=== PATIENT | male | born 1940 | race African-American/Black ===

== ENCOUNTER 2016-11-05 21:37 | Emergency (ER) | payer BC, MEDICARE ==
[~2016-11-05] VITALS: Ht 190.5 cm; Wt 88.5 kg
[~2016-11-05 21:37] MED LIST: AMIT25TA PO; ASPI325T4 PO; ASPI81TA2 PO; CARV6.25 PO; CHOL10003 PO; CLOP75TA27 PO; DIGO125T PO; FURO40TA4 PO; GABA-586 PO; HYDR-2678 PO; HYDR-963 PO; LISI-338 PO; OMEP20CA9 PO; OMEP40CA5 PO; PANT40TA5 PO; POLY500P14 MC; POTA20TA82 PO; RIVA15TA PO; SIMV20TA3 PO; TRAZ50TA15 PO
[2016-11-05 21:50] VITALS: BP 124/89
[2016-11-05] MEDS ORDERED: DEXAMETHASONE SOD PHOS 20 MG/5 ML VIAL. IM ONE (23:00)
--- NOTE | 2016-11-05 23:03 | PHYS DOC ---
Past Medical History Past Medical History: CAD, GERD, Hypertension Additional Past Medical Histor: BACK PAIN Past Surgical History: Angioplasty, Pacemaker, Other Additional Past Surgical Histo: hiatal hernia, back surgery Smoking: Cigarettes Alcohol Use: Heavy Drug Use: None Adult General Chief Complaint Chief Complaint: ALLERGIC REACTION HPI HPI Patient is a 76 year old male who presents with rash starting on the left forearm 2 days ago. He reports that the rash is very itchy. He had a similar rash approximately one month ago. He applied an ointment to the rash and it eventually cleared. The rash started on the left forearm again this time, however he has a few other scattered lesions across his body this time. He denies any change in household products or new medications. His PCP is Dr. Marni Olivas. Review of Systems Review of Systems Constitutional: Denies fever or chills. [] HENT: Denies ear pain, nasal congestion or sore throat. Denies angioedema. Respiratory: Denies shortness of breath. [] Integument: Reports itchy rash. Neurologic: Denies headache, focal weakness or sensory changes. [] Current Medications Current Medications Current Medications Medications (Trade) Dose Ordered Sig/Alma Rosa Start Time Stop Time Status Last Admin Dose Admin Dexamethasone Sodium Phosphate (Decadron) 10 mg 1X ONCE 11/05/16 23:00 11/05/16 23:01 DC 11/05/16 22:49 10 MG Allergies Allergies Allergies Coded Allergies Type Severity Reaction Last Updated Verified Iodinated Contrast Media - IV Dye Allergy Severe anaphalaxis, short of air Yes adhesive Allergy Severe PAINFUL SKIN IRRITATION 06/06/15 Yes latex Allergy Intermediate Hives 06/06/15 Yes Physical Exam Physical Exam Constitutional: Well developed, well nourished, no acute distress, non-toxic appearance. [] HENT: Normocephalic, atraumatic, oropharynx moist. [] Eyes: PERRLA, EOMI, conjunctiva normal, no discharge. [] Neck: Normal range of motion, no tenderness, supple, no stridor. [] Skin: Warm, dry. There are a few papular erythematous lesions on the left dorsal forearm with more scattered lesions diffusely across the body. Back: No midline tenderness, no CVA tenderness. [] Extremities: No tenderness, ROM intact, no edema. Distal pulses equal bilaterally. [] Neurologic: Alert and oriented X 3, normal motor function, normal sensory function, no focal deficits noted. [] Psychologic: Affect normal, judgement normal, mood normal. [] Current Patient Data Vital Signs Vital Signs Date Time Temp Pulse Resp B/P Pulse Ox O2 Delivery O2 Flow Rate FiO2 11/05/16 21:50 98.4 99 20 96 Room Air 98.4 EKG EKG [] Radiology/Procedures Radiology/Procedures [] Course & Med Decision Making Course & Med Decision Making Pertinent Labs and Imaging studies reviewed. (See chart for details) [] Dragon Disclaimer Dragon Disclaimer This electronic medical record was generated, in whole or in part, using a voice recognition dictation system. Departure Departure Impression: Primary Impression: Rash Disposition: HOME, SELF-CARE Condition: STABLE Referrals: NO PCP (PCP) Patient Instructions: Rash, [id number] Additional Instructions: You were seen for a rash likely caused by an allergic reaction to an unknown substance. You were given a shot of steroids in the emergency department to help with the rash and itching. You may take Benadryl to help with the itching at home. Please follow up with your doctor if the rash continues. Return to the emergency department if you have any new or concerning symptoms. NATHALIE FONSECA Nov 05, 2016 23:03
== END 2016-11-05 23:07 | disposition home or self-care (01) ==
LOC: ER 21:37
DX: R21 Rash and other nonspecific skin eruption (principal); I10 Essential (primary) hypertension; I25.10 Atherosclerotic heart disease of native coronary artery without angina pectoris; F10.10 Alcohol abuse, uncomplicated; F17.210 Nicotine dependence, cigarettes, uncomplicated; Z91.040 Latex allergy status; Z91.041 Radiographic dye allergy status; Z91.048 Other nonmedicinal substance allergy status; Z95.1 Presence of aortocoronary bypass graft; Z96.89 Presence of other specified functional implants
CPT/HCPCS: 96372; 99283; J1100

== ENCOUNTER 2017-02-14 07:06 | Inpatient (IN) | payer MEDICARE, BC ==
[~2017-02-14] VITALS: Ht 190.5 cm; Wt 86.2 kg
--- NOTE | 2017-02-14 07:13 | ED.ADGEN ---
Past Medical History Past Medical History: CAD, GERD, Hypertension Additional Past Medical Histor: BACK PAIN Past Surgical History: Angioplasty, Pacemaker, Other Additional Past Surgical Histo: hiatal hernia, back surgery Alcohol Use: Heavy Drug Use: None Adult General Chief Complaint Chief Complaint: AICD FIRED OR SHOCKED HPI HPI Patient is a 77 year old man, history of CAD, PE on Xarelto, CHF with low ejection fraction, on 2 L nasal cannula baseline, status post placement of a Medtronic EVERA model number [id number], hypertension, chronic back pain status post multiple surgeries, who presents emergency Department with a complaint of near syncope with firing of his AICD 3:00-3:30 PM yesterday. Patient states that he had been "going around doing stuff her my kids", and was in a stressful situation, signing some papers, would begin to feel lightheaded, and then felt as though just before he was pass out that his AICD fired. Patient states that he did not contact his doctor at that time, he states he does not have any chest pain or shortness of breath before the event, denies any weakness numbness or tingling, any recent travel or surgery, and he missed doses of medication or medication changes, any drugs alcohol or cigarettes. Patient states that he was feeling slightly short of breath after the ACT did fire. He states he presents to the emergency department this morning because he is feeling lightheaded, although he denies any syncope, denies striking his head, any injuries, any recent travel or surgery, any history of DVT or PE, any swelling of the extremities or other complaints. Review of Systems Review of Systems Constitutional: Denies fever or chills. [] Lightheadedness. Eyes: Denies change in visual acuity. [] HENT: Denies nasal congestion or sore throat. [] Respiratory: Denies cough, complaining of shortness of breath Cardiovascular: Denies chest pain or edema. AICD firing yesterday around 3 PM GI: Denies abdominal pain, nausea, vomiting, bloody stools or diarrhea. [] : Denies dysuria. [] Musculoskeletal: Denies back pain or joint pain. [] Integument: Denies rash. [] Neurologic: Denies headache, focal weakness or sensory changes. [] Endocrine: Denies polyuria or polydipsia. [] Lymphatic: Denies swollen glands. [] Psychiatric: Denies depression or anxiety. [] Current Medications Current Medications Current Medications Medications (Trade) Dose Ordered Sig/Alma Rosa Start Time Stop Time Status Last Admin Dose Admin Metoprolol Tartrate (Lopressor) 25 mg 1X ONCE 02/14/17 12:45 02/14/17 12:46 DC 02/14/17 13:26 25 MG Allergies Allergies Allergies Coded Allergies Type Severity Reaction Last Updated Verified Iodinated Contrast Media - IV Dye Allergy Severe anaphalaxis, short of air Yes adhesive Allergy Severe PAINFUL SKIN IRRITATION 06/06/15 Yes latex Allergy Intermediate Hives 06/06/15 Yes Physical Exam Physical Exam Constitutional: Well developed, well nourished, no acute distress, non-toxic appearance. [] Nasal cannula in place. HENT: Normocephalic, atraumatic, bilateral external ears normal, oropharynx moist, no oral exudates, nose normal. [] Eyes: PERRLA, EOMI, conjunctiva normal, no discharge. [] Neck: Normal range of motion, no tenderness, supple, no stridor. [] Cardiovascular:Heart rate irregular rhythm, no murmur, S1, S2, regular rhythm, no rubs or gallops. [] Lungs & Thorax: Bilateral breath sounds clear to auscultation , no wheezing, rhonchi, rales, no chest wall crepitus or tenderness. [] Abdomen: Bowel sounds normal, soft, no tenderness, no rebound rigidity or guarding, patient with well-healed midline ventral incision on his abdomen, no masses, no pulsatile masses. [] Skin: Warm, dry, no erythema, no rash. [] Back: No tenderness, no CVA tenderness. [] Extremities: No tenderness, no cyanosis, no clubbing, ROM intact, no edema. [ Negative Homans sign.] Neurologic: Alert and oriented X 3, normal motor function, normal sensory function, no focal deficits noted. [] Psychologic: Affect normal, judgement normal, mood normal. [] Current Patient Data Vital Signs Vital Signs Date Time Temp Pulse Resp B/P Pulse Ox O2 Delivery O2 Flow Rate FiO2 02/14/17 07:16 98.1 101 21 143/95 Nasal Cannula 2 98.1 Lab Values Laboratory Tests Test 02/14/17 07:40 White Blood Count 8.2x10^3/uL (4.0-11.0) Red Blood Count 4.67x10^6/uL (4.30-5.70) Hemoglobin 15.4g/dL (13.0-17.5) Hematocrit 46.3% (39.0-53.0) Mean Corpuscular Volume 99fL (79-100) Mean Corpuscular Hemoglobin 33pg (25-35) Mean Corpuscular Hemoglobin Concent 33g/dL (31-37) Red Cell Distribution Width 14.0% (11.5-14.5) Platelet Count 235x10^3/uL (140-400) Neutrophils (%) (Auto) 65% (31-73) Lymphocytes (%) (Auto) 23% (24-48) L Monocytes (%) (Auto) 9% (0-9) Eosinophils (%) (Auto) 2% (0-3) Basophils (%) (Auto) 1% (0-3) Neutrophils # (Auto) 5.4x10^3uL (1.8-7.7) Lymphocytes # (Auto) 1.9x10^3/uL (1.0-4.8) Monocytes # (Auto) 0.8x10^3/uL (0.0-1.1) Eosinophils # (Auto) 0.1x10^3/uL (0.0-0.7) Basophils # (Auto) 0.0x10^3/uL (0.0-0.2) Prothrombin Time 20.7SEC (11.7-14.0) H Prothrombin Time INR 1.9 (0.8-1.1) H PTT 28SEC (24-38) Sodium Level 143mmol/L (136-145) Potassium Level 3.6mmol/L (3.5-5.1) Chloride Level 106mmol/L (98-107) Carbon Dioxide Level 29mmol/L (21-32) Anion Gap 8 (6-14) Blood Urea Nitrogen 19mg/dL (8-26) Creatinine 1.0mg/dL (0.7-1.3) Estimated GFR (Cockcroft-Gault) 88.1 Glucose Level 122mg/dL (70-99) H Calcium Level 8.9mg/dL (8.5-10.1) Phosphorus Level 3.7mg/dL (2.6-4.7) Magnesium Level 1.9mg/dL (1.8-2.4) Total Bilirubin 0.5mg/dL (0.2-1.0) Direct Bilirubin 0.2mg/dL (0.0-0.2) Aspartate Amino Transferase (AST) 53U/L (15-37) H Alanine Aminotransferase (ALT) 63U/L (16-63) Alkaline Phosphatase 97U/L (46-116) Troponin I Quantitative 0.172ng/mL (0.000-0.055) JO-Hft-J-Type Natriuretic Peptide 171pg/mL (0-449) Total Protein 6.9g/dL (6.4-8.2) Albumin 3.3g/dL (3.4-5.0) L Digoxin Level 0.6ng/mL (0.9-2.0) L Digoxin Last Dose Date Unknown Digoxin Last Dose Time Unknown Laboratory Tests 02/14/17 07:40 Laboratory Tests 02/14/17 07:40 EKG EKG EC: Irregular rhythm, heart rate 100 bpm, atrial fibrillation, with occasional PVCs noted, left axis deviation, QTC of 431, QRS of 84, patient with moderate baseline artifact noted, no ST elevations or depressions. Abnormal ECG , does not meet STEMI criteria. As interpreted by me. [] Radiology/Procedures Radiology/Procedures [] [facility] [address] [place] [address] IMAGING REPORT Signed PATIENT: GENIA MCKENZIE ACCOUNT: [id number] : 1940 LOCATION: ER AGE: 77 SEX: M EXAM STATUS: REG ER ORD. PHYSICIAN: NATHALIE LYN DO REASON: CP PROCEDURE: PORTABLE CHEST 1V Portable AP view CXR: Comparison: December 28, 2015. Clinical indications: Irregular heartbeat. Pacemaker malfunction. Findings: No acute lung infiltrate or pleural effusion or pulmonary edema or lung mass or pneumothorax is seen. Pacemaker is again noted. The heart size, pulmonary vasculature, mediastinum and both ignacio are unremarkable. Impression: No acute radiographic abnormality is seen. DICTATED and SIGNED BY: AMA NOBLE MD DATE: 02/14/17 0909 CC: NATHALIE LYN DO; NO PCP ~ Course & Med Decision Making Course & Med Decision Making Pertinent Labs and Imaging studies reviewed. (See chart for details) Patient complaining of still feeling lightheaded, denies any chest pain or shortness of breath. Attempted to interrogate the pacemaker at bedside using the Medtronic portable device without success. We did contact the or presented of, Higinio, who did come to the ED, there is Transmitted the information. A significant delay occurred, it took us more than 4 hours to obtain the read out of the patient's pacemaker ACD, at that time it was noted that the patient had runs of a TTE, which resulted in one shock yesterday as stated, and has had multiple episodes of nonsustained V. tach and atrial fibrillation during the timeframe. Patient's laboratory studies not reveal any acutely concerning findings, ECG otherwise unremarkable, patient is in sinus rhythm at this time with history of nerve in atrial fibrillation. It appears the patient's pacemaker ACD is functioning well, however after discussion with Dr. Saleem, of cardiology, plan to admit the patient for improved medical management of his underlying rhythm. Patient's digoxin level is low, after reviewing medications at bedside as patient is now had a feeling her bring his medications to the emergency department, is noted the patient was started on metoprolol 25 mg once daily about a month ago. Patient states he's been taking all medications as directed. To discuss this with Dr. Saleem, he was given a dose of 25 mg metoprolol in the ED, and metoprolol 25 every 6, plan to titrate medications to improve efficacy. He will see the patient in the hospital. Patient is agreeable with the plan for admission to the hospital for cardiac evaluation and monitoring as stated. Findings as above discussed with Dr. Olivas patient primary care provider, patient accepted to his service as a full admission to the cardiac telemetry floor with plan as above, bridge orders entered per discussion. Dragon Disclaimer Dragon Disclaimer This electronic medical record was generated, in whole or in part, using a voice recognition dictation system. Departure Impression: Primary Impression: Arrhythmia Additional Impression: Syncope Disposition: 09 ADMITTED INPATIENT Admitting Physician: Marni Olivas Condition: IMPROVED Problem Qualifiers NATHALIE LYN DO Feb 14, 2017 07:13
[2017-02-14 07:59] LABS: EOS % 2 % (0-3); HEMATOCRIT 46.3 % (39.0-53.0); HEMOGLOBIN 15.4 g/dL (13.0-17.5); LYMPH % 23 % (24-48); MEAN CORPUSCULAR HEMOGLOBIN 33 pg (25-35); MEAN CORPUSCULAR HGB CONC 33 g/dL (31-37); MEAN CORPUSCULAR VOLUME 99 fL (79-100); MONO % 9 % (0-9); NEUT % 65 % (31-73); PLATELET COUNT 235 x10^3/uL (140-400); RED BLOOD COUNT 4.67 x10^6/uL (4.30-5.70); WHITE BLOOD COUNT 8.2 x10^3/uL (4.0-11.0)
[2017-02-14 08:00] LABS: BASO % 1 % (0-3); LYMPH # 1.9 x10^3/uL (1.0-4.8)
[2017-02-14 08:06] LABS: PROTHROMBIN TIME PATIENT 20.7 SEC (11.7-14.0)
[2017-02-14 08:07] LABS: INR 1.9 (0.8-1.1)
--- NOTE | 2017-02-14 08:13 | RAD ---
Portable AP view CXR: Comparison: December 28, 2015. Clinical indications: Irregular heartbeat. Pacemaker malfunction. Findings: No acute lung infiltrate or pleural effusion or pulmonary edema or lung mass or pneumothorax is seen. Pacemaker is again noted. The heart size, pulmonary vasculature, mediastinum and both ignacio are unremarkable. Impression: No acute radiographic abnormality is seen.
[2017-02-14 08:14] LABS: CALCIUM 8.9 mg/dL (8.5-10.1); GFR 88.1; POTASSIUM 3.6 mmol/L (3.5-5.1)
[2017-02-14 08:21] LABS: ALBUMIN 3.3 g/dL (3.4-5.0); DIRECT BILIRUBIN 0.2 mg/dL (0.0-0.2); MAGNESIUM 1.9 mg/dL (1.8-2.4); PHOSPHORUS 3.7 mg/dL (2.6-4.7); TOTAL BILIRUBIN 0.5 mg/dL (0.2-1.0); TOTAL PROTEIN 6.9 g/dL (6.4-8.2)
--- NOTE | 2017-02-14 08:34 | EKG ---
[facility] [address] [place] [address] Test Date: 2017-02-14 Test Time: 07:16:57 Pat Name: GENIA MCKENZIE Department: Room: Gender: Reimbursement Spec: : 1940 Requested By: NATHALIE LYN Order Number: [id number] Reading MD: Felix Saleem Measurements Intervals [place] Rate: 100 P: CT: QRS: -4 QRSD: 84 T: 42 QT: 332 QTc: 431 Interpretive Statements SUSPECT SINUS RHYTHM PAC'S PVC'S Electronically Signed On 02-18-2017 9:47:54 CDT by Felix Saleem
[2017-02-14] MEDS ORDERED: METOPROLOL TART IMMED RELEASE 25 MG TABLET. PO ONE (12:45)
[2017-02-14] MEDS ORDERED: NITROGLYCERIN SUBLINGUAL 0.4 MG BOTTLE OF 25. SL PRN (13:45)
[2017-02-14] MEDS ORDERED: ONDANSETRON PF 4 MG/2 ML VIAL. IV PRN (13:45)
[2017-02-14] MEDS ORDERED: ACETAMINOPHEN 325 MG TABLET. PO PRN (13:45)
[2017-02-14 13:48] LABS: BILIRUBIN,URINE NEGATIVE (NEG); GLUCOSE,URINE NEGATIVE (NEG); NITRITE,URINE NEGATIVE (NEG); PH,URINE 6.5; PROTEIN,URINE NEGATIVE (NEG-TRACE)
[2017-02-14 13:51] LABS: BARBITURATES NEG (NEG); BENZODIAZEPINES NEG (NEG); CANNABINOIDS NEG (NEG); COCAINE NEG (NEG); METHADONE NEG (NEG); OPIATES NEG (NEG); PHENCYCLIDINE NEG (NEG)
[2017-02-14 13:57] LABS: BACTERIA,URINE 0 /HPF (0-FEW); SQUAMOUS EPITHELIAL CELL,UR FEW /LPF
--- NOTE | 2017-02-14 14:49 | ACF ---
Admission Forms Criteria CARDIAC ARRHYTHMIA Clinical Indications for Inpatient Care (Place 'X' for any and all applicable criteria): Ongoing inpatient care for cardiac arrhythmia needed as indicated by ANY ONE of the following(1)(2)(3)(4)(7) : [X]I. Vital sign abnormality secondary to arrhythmia [ ]II. Patient has implantable cardioverter-defibrillator that has fired more than once within past 24 hours or needs immediate adjustment of settings that cannot be done other than in inpatient setting. [ ]III. Altered mental status [ ]IV. Resuscitated or aborted ventricular fibrillation or ventricular tachycardia in patient without implantable cardioverter- defibrillator [ ]V. Initiation of antiarrhythmic drug therapy is needed in patient at high risk of adverse effects as indicated by ANY ONE of the following: [ ]a) Significant structural heart disease (e.g., reduced ejection fraction, congenital heart disease, valvular heart disease) [ ]b) Prolonged QT interval [ ]c) Underlying sinus node or atrioventricular conduction disturbances [ ]d) Need for treatment with antiarrhythmic drugs that have significant proarrhythmic potential (e.g., dofetilide, sotalol, procainamide) [ ]. Acute myocardial ischemia as a consequence or suspected cause of arrhythmia [X]VII. Syncope secondary to arrhythmia [ ]VIII. Heart failure (eg, pulmonary edema) secondary to arrhythmia) (26)(27) [ ]IX. Patient has implantable cardioverter defibrillator that has fired more than once within past 24hr or needs immediate adjustment of settings that cannot be done other than in inpatient setting.(8) [ ]X. Sustained (30 seconds or more of ventricular rhythm at more than 100 beats per minute) ventricular tachycardia and ANY ONE of the following: [ ]a) No previous known history of sustained ventricular tachycardia [ ]b) Structural heart disease (eg, reduced ejection fraction, hypertrophic cardiomyopathy, severe valvular disease) and without implantable cardioverter-defibrillator(24)(32)(33) [ ]c) Need for treatment of drug toxicity (eg, digitalis toxicity)(34 ) [ ]d) Need for electrical cardioversion Extended stay beyond goal length of stay may be needed for [ ]a) Hemodynamic stability [ ]b) Arrhythmia evaluation completed [ ]c) Reversible causes of arrhythmia eliminated or mitigated [ ]d) Specific antiarrhythmia treatment initiated as appropriate [ ]e) Anticoagulation requirements addressed (or anticoagulation not required). [ ]f) Medical comorbidities manageable at lower level of care The original [email or web address] content created by [email or web address] has been revised. The portions of the content which have been revised are identified through the use of italic text or in bold, and [facility] has neither reviewed nor approved the modified material. All other unmodified content is copyright [email or web address]. Please see references footnoted in the original [email or web address] edition 2016 Admission Criteria Met?: Yes GAMALIEL ZAVALA Feb 14, 2017 14:49
[2017-02-14 15:15] VITALS: BP 124/84
[2017-02-14] MEDS ORDERED: METO25TA9 PO (16:12)
[2017-02-14] MEDS ORDERED: TAMS0.4C2 PO (16:12)
--- NOTE | 2017-02-14 16:20 | PDOC2 ---
CARDIOLOGY CONSULT NOTE CHEIF COMPLAINT: ICD shock Problems: HPI: 77 y.o man presenting with ICD shock yesterday. He has felt fatigue and worsening symptoms of dyspnea over the last few weeks. Had 1 shock through ICD yesterday. No LOC. Denies chest pain prior to presentation. No increase in LE edema, weight or medication compliance. PMHX: Prior mixed ischemic/NICM, resolved with EF prev <35% and then most recently with EF > 55% Afib DVT/P.E. CAD SOCHX: No alcohol, tob or illicits. FAMHX: NC CURRENT MEDS: Current Medications Medications (Trade) Dose Ordered Sig/Alma Rosa Start Time Stop Time Status Last Admin Dose Admin Acetaminophen (Tylenol) 650 mg PRN Q4HRS PRN 02/14/17 13:45 02/15/17 13:44 Metoprolol Tartrate (Lopressor) 25 mg 1X ONCE 02/14/17 12:45 02/14/17 12:46 DC 02/14/17 13:26 25 MG Nitroglycerin (Nitrostat) 0.4 mg PRN Q5MIN PRN 02/14/17 13:45 02/15/17 13:44 Ondansetron HCl (Zofran) 4 mg PRN Q8HRS PRN 02/14/17 13:45 02/15/17 13:44 ALLERGIES: Allergies Coded Allergies Type Severity Reaction Last Updated Verified Iodinated Contrast Media - IV Dye Allergy Severe anaphalaxis, short of air Yes adhesive Allergy Severe PAINFUL SKIN IRRITATION 06/06/15 Yes latex Allergy Intermediate Hives 06/06/15 Yes ROS: Negative for 10/14 systems reviewed unless otherwise noted above in HPI. PHYSICAL EXAM: Vital Signs: Vital Signs Date Time Temp Pulse Resp B/P Pulse Ox O2 Delivery O2 Flow Rate FiO2 02/14/17 15:15 97.5 90 16 124/84 97 Room Air 97.5 02/14/17 07:16 2 Physical Exam: Gen: A/O x 3. NAD General Appearance: [ alert] Awake: [ ] Alert Oriented x [ ] Neck: No JVD or JVP Chest: CTA Myles Heart: S1 S2 Abdomen - Soft NTND Extremities - No Edema DIAGNOSTIC TESTING: Reviewed ICD interrogation. Had inappropriate shock of afib with rvr labs noted, INR 1.9 Lab Laboratory Tests Test 02/14/17 07:40 02/14/17 13:30 White Blood Count 8.2x10^3/uL (4.0-11.0) Red Blood Count 4.67x10^6/uL (4.30-5.70) Hemoglobin 15.4g/dL (13.0-17.5) Hematocrit 46.3% (39.0-53.0) Mean Corpuscular Volume 99fL (79-100) Mean Corpuscular Hemoglobin 33pg (25-35) Mean Corpuscular Hemoglobin Concent 33g/dL (31-37) Red Cell Distribution Width 14.0% (11.5-14.5) Platelet Count 235x10^3/uL (140-400) Neutrophils (%) (Auto) 65% (31-73) Lymphocytes (%) (Auto) 23% (24-48) L Monocytes (%) (Auto) 9% (0-9) Eosinophils (%) (Auto) 2% (0-3) Basophils (%) (Auto) 1% (0-3) Neutrophils # (Auto) 5.4x10^3uL (1.8-7.7) Lymphocytes # (Auto) 1.9x10^3/uL (1.0-4.8) Monocytes # (Auto) 0.8x10^3/uL (0.0-1.1) Eosinophils # (Auto) 0.1x10^3/uL (0.0-0.7) Basophils # (Auto) 0.0x10^3/uL (0.0-0.2) Prothrombin Time 20.7SEC (11.7-14.0) H Prothromb Time International Ratio 1.9 (0.8-1.1) H Activated Partial Thromboplast Time 28SEC (24-38) Sodium Level 143mmol/L (136-145) Potassium Level 3.6mmol/L (3.5-5.1) Chloride Level 106mmol/L (98-107) Carbon Dioxide Level 29mmol/L (21-32) Anion Gap 8 (6-14) Blood Urea Nitrogen 19mg/dL (8-26) Creatinine 1.0mg/dL (0.7-1.3) Estimated GFR (Cockcroft-Gault) 88.1 Glucose Level 122mg/dL (70-99) H Calcium Level 8.9mg/dL (8.5-10.1) Phosphorus Level 3.7mg/dL (2.6-4.7) Total Bilirubin 0.5mg/dL (0.2-1.0) Direct Bilirubin 0.2mg/dL (0.0-0.2) Aspartate Amino Transf (AST/SGOT) 53U/L (15-37) H Alkaline Phosphatase 97U/L (46-116) Total Protein 6.9g/dL (6.4-8.2) Albumin 3.3g/dL (3.4-5.0) L Digoxin Level 0.6ng/mL (0.9-2.0) L Digoxin Last Dose Date Unknown Digoxin Last Dose Time Unknown Urine Collection Type Unknown Urine Color Yellow Urine Clarity Clear Urine pH 6.5 Urine Specific [place] 1.025 Urine Protein Negativemg/dL (NEG-TRACE) Urine Glucose (UA) Negativemg/dL (NEG) Urine Ketones (Stick) Negativemg/dL (NEG) Urine Blood Negative (NEG) Urine Nitrite Negative (NEG) Urine Bilirubin Negative (NEG) Urine Urobilinogen Dipstick 2.0mg/dL (0.2 mg/dL) Urine Leukocyte Esterase Negative (NEG) Urine RBC 6-10/HPF (0-2) Urine WBC 1-4/HPF (0-4) Urine Squamous Epithelial Cells Few/LPF Urine Amorphous Sediment Present/HPF Urine Bacteria 0/HPF (0-FEW) Urine Hyaline Casts Few/HPF Urine Mucus Mod/LPF Urine Opiates Screen Neg (NEG) Urine Methadone Screen Neg (NEG) Urine Barbiturates Neg (NEG) Urine Phencyclidine Screen Neg (NEG) Urine Amphetamine/Methamphetamine Neg (NEG) Urine Benzodiazepines Screen Neg (NEG) Urine Cocaine Screen Neg (NEG) Urine Cannabinoids Screen Neg (NEG) Urine Ethyl Alcohol Neg (NEG) ASSESSMENT: 1. Mixed ischemic/NICM 2. s/p ICD shock 3. Prior DVT/p.t 4. Persistent atrial fibrillation PLAN: 1. Start metoprolol 25mg p.o q 6 hours 2. Continue digoxin 3. Continue xarelto 4. No acute HF symptoms. Supportive care. CHRIS MULLEN MD Feb 14, 2017 16:20
[2017-02-14] MEDS ORDERED: METOPROLOL TART IMMED RELEASE 25 MG TABLET. PO SCH (18:00)
[2017-02-14 19:40] VITALS: BP 136/86
[2017-02-14] MEDS ORDERED: HYDROcodone/APAP 10/325 1 TAB TABLET PO PRN (20:00)
[2017-02-14] MEDS: RIVAROXABAN 10 MG TABLET. PO SCH (20:51)
[2017-02-14] MEDS: traZODone 50 MG TABLET. PO SCH (20:51)
[2017-02-14] MEDS: GABAPENTIN 300 MG CAPSULE. PO SCH (20:51)
[2017-02-14] MEDS: TAMSULOSIN 0.4 MG CAP.ER.24H. PO SCH (20:51)
[2017-02-14] MEDS: SIMVASTATIN 20 MG TABLET PO SCH (20:51)
[2017-02-14 22:25] VITALS: BP 148/95
[2017-02-14] MEDS: METOPROLOL TART IMMED RELEASE 25 MG TABLET. PO SCH (23:31)
[2017-02-15 03:31] VITALS: BP 142/95
[2017-02-15 05:48] LABS: BASO % 1 % (0-3); EOS % 2 % (0-3); HEMATOCRIT 46.2 % (39.0-53.0); LYMPH # 2.6 x10^3/uL (1.0-4.8); LYMPH % 34 % (24-48); MEAN CORPUSCULAR HEMOGLOBIN 33 pg (25-35); MEAN CORPUSCULAR HGB CONC 33 g/dL (31-37); MEAN CORPUSCULAR VOLUME 101 fL (79-100); MONO % 10 % (0-9); NEUT % 55 % (31-73); PLATELET COUNT 230 x10^3/uL (140-400); RED BLOOD COUNT 4.58 x10^6/uL (4.30-5.70); RED CELL DISTRIBUTION WIDTH 14.3 % (11.5-14.5); WHITE BLOOD COUNT 7.7 x10^3/uL (4.0-11.0)
[2017-02-15] MEDS: METOPROLOL TART IMMED RELEASE 25 MG TABLET. PO SCH ×4 (05:51→23:47)
[2017-02-15 06:09] LABS: CALCIUM 8.6 mg/dL (8.5-10.1); CREATININE 0.9 mg/dL (0.7-1.3); GFR 99.5
[2017-02-15] MEDS ORDERED: DEXTROSE 50% 25 GM / 50ML DISP.SYRIN. IV ONE ×2 (06:14→06:45)
[2017-02-15 07:25] VITALS: BP 155/104
[2017-02-15] MEDS: ASPIRIN ENTERIC COATED 81 MG TABLET.DR. PO SCH (08:16)
[2017-02-15] MEDS: DIGOXIN 125 MCG TABLET. PO SCH (08:16)
[2017-02-15] MEDS: CLOPIDOGREL BISULFATE 75 MG TABLET PO SCH (08:16)
[2017-02-15] MEDS: GABAPENTIN 300 MG CAPSULE. PO SCH ×3 (08:16→20:15)
[2017-02-15] MEDS: PANTOPRAZOLE 40 MG TABLET.DR. PO SCH (08:16)
[2017-02-15] MEDS: LISINOPRIL 2.5 MG TABLET PO SCH (08:17)
[2017-02-15] MEDS ORDERED: METOPROLOL SUCC 24HR ER 25 MG TAB.ER.24H. PO SCH (09:00)
[2017-02-15 10:13] VITALS: BP 136/91
--- NOTE | 2017-02-15 10:27 | PDOC ---
Provider Note Provider Note No acute events overnight. In sinus rhythm Would recommend DC on Toprol XL 100mg daily (prev only on 25mg xl) Will f/u in the office in 2 weeks and reassess afib burden. CHRIS MULLEN MD Feb 15, 2017 10:27
--- NOTE | 2017-02-15 12:22 | CARD ---
APPROVED REPORT EXAM: LIMITED Two-dimensional echocardiogram. Other Information Quality : Average INDICATION Atrial Fibrillation Cardiomyopathy 2D DIMENSIONS IVSd1.1 (0.7-1.1cm)LVDd4.6 (3.9-5.9cm) PWd1.2 (0.7-1.1cm)LVDs3.0 (2.5-4.0cm) FS (%) 34.7 %SV63.0 ml LVEF(%)63.9 (>50%) LEFT VENTRICLE The left ventricle is normal size. There is normal left ventricular wall thickness. Left ventricle sy stolic function is normal. The Ejection Fraction is 55%. There is normal LV segmental wall motion. RIGHT VENTRICLE The right ventricle is normal size. The right ventricular systolic function is normal. There is a pac emake/ICDr lead seen in the RV/RA. ATRIA The left atrium size is normal. The right atrium size is normal. GREAT VESSELS The aortic root is normal in size. PERICARDIAL EFFUSION There is no evidence of significant pericardial effusion. Critical Notification Critical Value: No <Conclusion> Left ventricle systolic function is normal. The Ejection Fraction is 55%. There is normal LV segmental wall motion. There is a pacemake/ICDr lead seen in the RV/RA.
[2017-02-15] MEDS ORDERED: diphenhydrAMINE HCL 25 MG CAPSULE PO PRN (13:30)
[2017-02-15 14:25] VITALS: BP 159/101
--- NOTE | 2017-02-15 14:57 | HP ---
ADMIT DATE: 02/15/2017 ADMITTING PHYSICIAN: RENE MOON MD REASON FOR ADMISSION: Cardiac arrhythmia. HISTORY OF PRESENT ILLNESS: This 77-year-old -Citizen Of [place] male who has a history of coronary artery disease and history of pulmonary embolism on Xarelto and both the ischemic and nonischemic cardiomyopathy and with also a history of diastolic heart failure and history of AICD placement along with hypertension, presented to the Emergency Room with complaints of near syncope with firing of AICD. Because of the history AICD firing twice, the patient was admitted for further evaluation and management. Interrogation revealed multiple episodes of atrial fibrillation. His digoxin level was low. The patient was started on oral metoprolol; cardiology consult was also obtained and the patient was admitted for further evaluation and management. REVIEW OF SYSTEMS: At present time, the patient is complaining of low back pain. The patient said that Dr. Garces did the surgery, but now he cannot help him. He is also complaining of significant pain in the low back as well as weakness and pain of the left lower extremity. The patient says that he is having difficulty walking. He denies any nausea, vomiting, diarrhea, constipation, dysuria, cold, cough, congestion, or chest pains. He admitted to being dizzy and weak and had AICD firing. Other systems reviewed and are negative. PAST MEDICAL HISTORY: The patient has a history of coronary artery disease, history of PTCA, CHF, diastolic ejection fraction 65-70%, hypertension, syncope, hyperlipidemia, history of pulmonary embolism, bronchitis, history of dementia, gastroesophageal reflux disease, osteoarthritis, chronic low back pain and CKD 2. PAST SURGICAL HISTORY: The patient has had pacemaker and AICD on 04/28/2014, [employer], cataract removal, bilateral hernia repair, ventral PTCA, back surgery, 01/15/2015 had EVAR repair of aortic aneurysm and right common iliac artery aneurysm, back surgery x 2, hiatal hernia surgery, PTCA and coronary artery not known. FAMILY HISTORY: Positive for heart disease and hypertension. SOCIAL HISTORY: The patient is , no history of smoking, alcoholism or drug abuse. MEDICATIONS: Reviewed. ALLERGIES: THE PATIENT IS ALLERGIC TO IODINATED CONTRAST MEDIA, IV DYE ____ AND LATEX. OBJECTIVE: VITAL SIGNS: Temperature 97.9, pulse 80 per minute, respirations 20 per minute, blood pressure was earlier 155/104 mmHg, now it is 136/91 mmHg. GENERAL: The patient is alert, oriented and not in any acute distress. SKIN: Warm and dry. There is no cyanosis. EYES: Pupils reacting to light. Conjunctivae pale. Sclerae muddy. HENT: Mild congestion of throat. NECK: JVP normal. No thyromegaly. Trachea midline. LUNGS: Clear with decreased breath sounds at bases. CARDIOVASCULAR: S1, S2 regular. ABDOMEN: Soft, nontender, bowel sounds present and lumbar spine tenderness present. EXTREMITIES: No edema, no cyanosis. LABORATORY DATA: WBC count 7.7, hemoglobin 15 yesterday, WBC count was 8.2, hemoglobin was 15.4, MCV 101, glucose 163, 102, 132 and 92. Sodium 141, potassium 4, BUN 18, and creatinine 0.9. Glucose on admission was 122, but subsequently it was noted to be only 28. Repeat glucose after treatment was 163, 102,132 and 92. DIAGNOSTIC DATA: Chest x-ray did not show any acute abnormalities. Interrogation of the pacemaker showed frequent episodes of atrial fibrillation. IMPRESSION: 1. Cardiac arrhythmia with automatic implantable cardioverter defibrillator firing and atrial fibrillation. 2. Congestive heart failure, both ischemic and nonischemic and diastolic. 3. Atrial fibrillation. 4. Lumbar radiculopathy. 5. Hypoglycemia, etiology not clear. His blood sugar was 28. The patient is not on any hypoglycemic agents and he is only on lisinopril, but that should not do cause hypoglycemia because the patient is not septic and ____ he is not in acute renal failure. The patient denies taking any medications for diabetes at home. This was a lab blood draw, but the nurse did not verified before giving him the insulin, so we really not sure what happened with the lab draw. We will continue to monitor blood sugars closely. He is not diabetic. I will recheck thyroid function test as well as hemoglobin A1c. 6. Coronary artery disease, history of percutaneous transluminal coronary angioplasty. 7. Hypertension. 8. History of syncope. 9. History of pulmonary embolism. 10. Hyperlipidemia. 11. History of AAA repair and right common iliac artery aneurysm. 12. Lumbar radiculopathy and back surgery. 13. Osteoarthritis. PLAN: I will consult Dr. Saleem for cardiology evaluation and management. I have discussed the case with him. I will monitor him for hypoglycemia. Consult Dr. Vale for reevaluation and management. For details, please obey the orders. RENE MOON MD DR: ARLENE/tess JOB#: [id number] / [id number]
[2017-02-15] MEDS: RIVAROXABAN 10 MG TABLET. PO SCH (17:54)
[2017-02-15 19:40] VITALS: BP 141/88
[2017-02-15] MEDS: SIMVASTATIN 20 MG TABLET PO SCH (20:15)
[2017-02-15] MEDS: traZODone 50 MG TABLET. PO SCH (20:15)
[2017-02-15] MEDS: TAMSULOSIN 0.4 MG CAP.ER.24H. PO SCH (20:16)
[2017-02-15 23:15] VITALS: BP 117/75
[2017-02-16 03:25] VITALS: BP 121/77
[2017-02-16] MEDS: METOPROLOL TART IMMED RELEASE 25 MG TABLET. PO SCH (05:54)
--- NOTE | 2017-02-16 07:41 | PDOC3 ---
BETHANIE SUMMERS SUBWAY OPERATOR 02/16/17 0740: IM DISCHARGE & PROGRESS NOTES Date of Admission Date of Admission Date of Admission: Feb 14, 2017 at 12:49 Date of Discharge Date of Discharge 02/16/17 Primary Diagnosis Primary Diagnosis IMPRESSION: 1. Afib RVR post AICD discharge 2. ICM/NICM with AICD placement 3. Atrial fibrillation chronic xarelto 4. Lumbar radiculopathy. with h/o back surgery 5. Hypoglycemia, etiology unclear 6. Coronary artery disease, history of percutaneous transluminal coronary angioplasty. 7. Hypertension. 8. History of syncope. 9. History of DVT/pulmonary embolism. xarelto 10. Hyperlipidemia. 11. History of AAA repair and right common iliac artery aneurysm. 12. non compliance with follow up out patient appointments 13. Osteoarthritis. Consults Consults Chris Saleem MD Procedures Procedures APPROVED REPORT EXAM: LIMITED Two-dimensional echocardiogram. Other Information Quality : Average INDICATION Atrial Fibrillation Cardiomyopathy 2D DIMENSIONS IVSd 1.1 (0.7-1.1cm) LVDd 4.6 (3.9-5.9cm) PWd 1.2 (0.7-1.1cm) LVDs 3.0 (2.5-4.0cm) FS (%) 34.7 % SV 63.0 ml LVEF(%) 63.9 (>50%) LEFT VENTRICLE The left ventricle is normal size. There is normal left ventricular wall thickness. Left ventricle systolic function is normal. The Ejection Fraction is 55%. There is normal LV segmental wall motion. RIGHT VENTRICLE The right ventricle is normal size. The right ventricular systolic function is normal. There is a pacemake/ICDr lead seen in the RV/RA. ATRIA The left atrium size is normal. The right atrium size is normal. GREAT VESSELS The aortic root is normal in size. PERICARDIAL EFFUSION There is no evidence of significant pericardial effusion. Critical Notification Critical Value: No <Conclusion> Left ventricle systolic function is normal. The Ejection Fraction is 55%. There is normal LV segmental wall motion. There is a pacemake/ICDr lead seen in the RV/RA. DICTATED and SIGNED BY: CHRIS SALEEM MD DATE: 02/15/17 1221 Labs Labs Laboratory Tests Test 4/29/17 07:40 02/14/17 13:30 02/14/17 14:30 02/14/17 20:15 White Blood Count 8.2x10^3/uL (4.0-11.0) Red Blood Count 4.67x10^6/uL (4.30-5.70) Hemoglobin 15.4g/dL (13.0-17.5) Hematocrit 46.3% (39.0-53.0) Mean Corpuscular Volume 99fL (79-100) Mean Corpuscular Hemoglobin 33pg (25-35) Mean Corpuscular Hemoglobin Concent 33g/dL (31-37) Red Cell Distribution Width 14.0% (11.5-14.5) Platelet Count 235x10^3/uL (140-400) Neutrophils (%) (Auto) 65% (31-73) Lymphocytes (%) (Auto) 23% (24-48) Monocytes (%) (Auto) 9% (0-9) Eosinophils (%) (Auto) 2% (0-3) Basophils (%) (Auto) 1% (0-3) Neutrophils # (Auto) 5.4x10^3uL (1.8-7.7) Lymphocytes # (Auto) 1.9x10^3/uL (1.0-4.8) Monocytes # (Auto) 0.8x10^3/uL (0.0-1.1) Eosinophils # (Auto) 0.1x10^3/uL (0.0-0.7) Basophils # (Auto) 0.0x10^3/uL (0.0-0.2) Prothrombin Time 20.7SEC (11.7-14.0) Prothromb Time International Ratio 1.9 (0.8-1.1) Activated Partial Thromboplast Time 28SEC (24-38) Sodium Level 143mmol/L (136-145) Potassium Level 3.6mmol/L (3.5-5.1) Chloride Level 106mmol/L (98-107) Carbon Dioxide Level 29mmol/L (21-32) Anion Gap 8 (6-14) Blood Urea Nitrogen 19mg/dL (8-26) Creatinine 1.0mg/dL (0.7-1.3) Estimated GFR (Cockcroft-Gault) 88.1 Glucose Level 122mg/dL (70-99) Calcium Level 8.9mg/dL (8.5-10.1) Phosphorus Level 3.7mg/dL (2.6-4.7) Magnesium Level 1.9mg/dL (1.8-2.4) Total Bilirubin 0.5mg/dL (0.2-1.0) Direct Bilirubin 0.2mg/dL (0.0-0.2) Aspartate Amino Transf (AST/SGOT) 53U/L (15-37) Alanine Aminotransferase (ALT/SGPT) 63U/L (16-63) Alkaline Phosphatase 97U/L (46-116) Troponin I Quantitative 0.172ng/mL (0.000-0.055) 0.101ng/mL (0.000-0.055) 0.094ng/mL (0.000-0.055) NA-Vke-U-Type Natriuretic Peptide 171pg/mL (0-449) Total Protein 6.9g/dL (6.4-8.2) Albumin 3.3g/dL (3.4-5.0) Digoxin Level 0.6ng/mL (0.9-2.0) Digoxin Last Dose Date Unknown Digoxin Last Dose Time Unknown Urine Collection Type Unknown Urine Color Yellow Urine Clarity Clear Urine pH 6.5 Urine Specific [place]gett 1.025 Urine Protein Negativemg/dL (NEG-TRACE) Urine Glucose (UA) Negativemg/dL (NEG) Urine Ketones (Stick) Negativemg/dL (NEG) Urine Blood Negative (NEG) Urine Nitrite Negative (NEG) Urine Bilirubin Negative (NEG) Urine Urobilinogen Dipstick 2.0mg/dL (0.2 mg/dL) Urine Leukocyte Esterase Negative (NEG) Urine RBC 6-10/HPF (0-2) Urine WBC 1-4/HPF (0-4) Urine Squamous Epithelial Cells Few/LPF Urine Amorphous Sediment Present/HPF Urine Bacteria 0/HPF (0-FEW) Urine Hyaline Casts Few/HPF Urine Mucus Mod/LPF Urine Opiates Screen Neg (NEG) Urine Methadone Screen Neg (NEG) Urine Barbiturates Neg (NEG) Urine Phencyclidine Screen Neg (NEG) Urine Amphetamine/Methamphetamine Neg (NEG) Urine Benzodiazepines Screen Neg (NEG) Urine Cocaine Screen Neg (NEG) Urine Cannabinoids Screen Neg (NEG) Urine Ethyl Alcohol Neg (NEG) Test 02/15/17 05:00 02/15/17 06:39 02/15/17 08:15 02/15/17 10:10 White Blood Count 7.7x10^3/uL (4.0-11.0) Red Blood Count 4.58x10^6/uL (4.30-5.70) Hemoglobin 15.0g/dL (13.0-17.5) Hematocrit 46.2% (39.0-53.0) Mean Corpuscular Volume 101fL (79-100) Mean Corpuscular Hemoglobin 33pg (25-35) Mean Corpuscular Hemoglobin Concent 33g/dL (31-37) Red Cell Distribution Width 14.3% (11.5-14.5) Platelet Count 230x10^3/uL (140-400) Neutrophils (%) (Auto) 55% (31-73) Lymphocytes (%) (Auto) 34% (24-48) Monocytes (%) (Auto) 10% (0-9) Eosinophils (%) (Auto) 2% (0-3) Basophils (%) (Auto) 1% (0-3) Neutrophils # (Auto) 4.2x10^3uL (1.8-7.7) Lymphocytes # (Auto) 2.6x10^3/uL (1.0-4.8) Monocytes # (Auto) 0.7x10^3/uL (0.0-1.1) Eosinophils # (Auto) 0.1x10^3/uL (0.0-0.7) Basophils # (Auto) 0.0x10^3/uL (0.0-0.2) Sodium Level 141mmol/L (136-145) Potassium Level 4.0mmol/L (3.5-5.1) Chloride Level 105mmol/L (98-107) Carbon Dioxide Level 28mmol/L (21-32) Anion Gap 8 (6-14) Blood Urea Nitrogen 18mg/dL (8-26) Creatinine 0.9mg/dL (0.7-1.3) Estimated GFR (Cockcroft-Gault) 99.5 Glucose Level 28mg/dL (70-99) Calcium Level 8.6mg/dL (8.5-10.1) Magnesium Level 2.0mg/dL (1.8-2.4) Glucose (Fingerstick) 163mg/dL (70-99) 102mg/dL (70-99) 132mg/dL (70-99) Test 02/15/17 11:25 02/15/17 20:50 Glucose (Fingerstick) 92mg/dL (70-99) 111mg/dL (70-99) Medications Medications Medications reviewed and reconciled for discharge. Brief hospital course Brief hospital course This 77 year old male who presented with defib discharge/AF RVR. He was admitted and the following is a summary of his treatment: AF RVR Metoprolol tart 25mg q 6hours started-?change to succinate at discharge-defer to cardiology rate controlled 80s Xarelto chronic anticoagulation 02/16-K 4.0 Mg 2.0 ICM/NICM no acute CHF CXR clear, negative dyspnea after admission GUERRA-r/t AF RVR ECHO EF 55% norm wall motion hypoglycemia BS stabilized since admit 92-163 rash flat/irregular shape +itch-suspect fungal Lotrisone lotion topically BID DVT/GI prophylaxis xarelto PPI For more details regarding the past history, family history, social history, surgical history and other details, please refer to History and Physical. Discharge home and f/u Thursday in the office with Dr. Olivas. Please see the discharge orders. He is being followed in the home and obtaining his medications through ?home MD. Subjective c/o rash back, itching. Seen in ED recently, given shot and discharged home. Objective alert, no distress. no CP or shortness of breath. Vitals Vital Signs Date Time Temp Pulse Resp B/P Pulse Ox O2 Delivery O2 Flow Rate FiO2 02/16/17 06:31 16 Room Air 02/16/17 05:54 84 145/88 02/16/17 03:25 98.2 97 98.2 Physical Exam General appearance - alert,well appearing, and in no distress Mental Status - alert, oriented to person, place, and time, affect appropriate to mood Head - normal Chest - clear to auscultation, no wheezes, rales or rhonchi Heart - S1 and S2 irreg Abdomen - soft, nontender, nondistended, BS + Neurological - no acute focal neurological deficit noted Musculoskeletal - chronic LBP mild with movement Skin: post thoracic-flat, irregular shaped rash scattered Extremities - no pedal edema Skin - warm and dry Medications Medications reviewed. Allergy Allergies Coded Allergies Type Severity Reaction Last Updated Verified Iodinated Contrast Media - IV Dye Allergy Severe anaphalaxis, short of air Yes adhesive Allergy Severe PAINFUL SKIN IRRITATION 06/06/15 Yes latex Allergy Intermediate Hives 06/06/15 Yes Follow up Thursday with Disposition: Home Comments Discharge Management - 35 minutes. For other details please refer to discharge instructions RENE OLIVAS MD 02/16/17 0946: IM DISCHARGE & PROGRESS NOTES Brief hospital course Brief hospital course Doing better. Consult for back pain. The patient was seen and examined by me. Chart reviewed and plan of care formulated. Discussed with, reviewed and agree with T[employer] INSURANCE AGENT's notes, plan of care and orders with modifications as necessary. For more details regarding further plans, please refer to the orders. BETHANIE SUMMERS APRN February 16, 2017 07:40 RENE OLIVAS MD February 16, 2017 09:46
--- NOTE | 2017-02-16 07:42 | DISCH ---
BETHANIE SUMMERS APRN 02/16/17 0742: DISCHARGE INSTRUCTIONS Condition on Discharge Condition on Discharge: Stable Activity After Discharge Activity Instructions for Disc: Activity as tolerated Diet after Discharge Diet after Discharge: Cardiac Contacting the after DC Call your doctor for: Concerns you may have Follow-Up Follow up with: Dr. Moon on Thursday RENE MOON MD 02/16/17 0851: BETHANIE SUMMERS APRN February 16, 2017 07:42 RENE MOON MD February 16, 2017 08:51
[2017-02-16] MEDS ORDERED: CLOT15CR3 TP (07:48)
[2017-02-16] MEDS ORDERED: DIPH25CA58 PO (07:48)
[2017-02-16 07:50] VITALS: BP_SYST 121; BP_SYST 158; BP_DIAS 77; BP_DIAS 94
[2017-02-16 07:52] LABS: ALBUMIN 3.1 g/dL (3.4-5.0); CALCIUM 8.5 mg/dL (8.5-10.1); CREATININE 0.9 mg/dL (0.7-1.3); GFR 99.5; POTASSIUM 3.6 mmol/L (3.5-5.1); TOTAL BILIRUBIN 1.2 mg/dL (0.2-1.0); TOTAL PROTEIN 6.2 g/dL (6.4-8.2)
[2017-02-16] MEDS: PANTOPRAZOLE 40 MG TABLET.DR. PO SCH (09:07)
[2017-02-16] MEDS: CLOPIDOGREL BISULFATE 75 MG TABLET PO SCH (09:07)
[2017-02-16] MEDS: GABAPENTIN 300 MG CAPSULE. PO SCH ×2 (09:07→16:00)
[2017-02-16] MEDS: DIGOXIN 125 MCG TABLET. PO SCH (09:07)
[2017-02-16] MEDS: ASPIRIN ENTERIC COATED 81 MG TABLET.DR. PO SCH (09:07)
[2017-02-16] MEDS: LISINOPRIL 2.5 MG TABLET PO SCH (09:07)
--- NOTE | 2017-02-16 10:10 | PDOC ---
CARDIO Progress Notes Date and Time Date of Service 02/16/2017 Time of Evaluation 0940 Subjective Subjective: No Chest Pain, No shortness of breath, No Palpitations, No Dizziness Vitals Vitals Vital Signs Date Time Temp Pulse Resp B/P Pulse Ox O2 Delivery O2 Flow Rate FiO2 02/16/17 09:07 90 158/94 02/16/17 08:00 Room Air 02/16/17 07:50 97.7 18 95 97.7 Weight Weight [ ] Input and Output Intake and Output Intake and Output 02/16/17 07:00 Output Total 500 ml Balance -500 ml Output Urine Total 500 ml # Voids 6 Laboratory Labs Laboratory Tests Test 02/15/17 10:10 02/15/17 11:25 02/15/17 20:50 02/16/17 06:20 Glucose (Fingerstick) 132mg/dL (70-99) 92mg/dL (70-99) 111mg/dL (70-99) Sodium Level 139mmol/L (136-145) Potassium Level 3.6mmol/L (3.5-5.1) Chloride Level 102mmol/L (98-107) Carbon Dioxide Level 31mmol/L (21-32) Anion Gap 6 (6-14) Blood Urea Nitrogen 13mg/dL (8-26) Creatinine 0.9mg/dL (0.7-1.3) Estimated GFR (Cockcroft-Gault) 99.5 BUN/Creatinine Ratio 14 (6-20) Glucose Level 99mg/dL (70-99) Calcium Level 8.5mg/dL (8.5-10.1) Total Bilirubin 1.2mg/dL (0.2-1.0) Aspartate Amino Transf (AST/SGOT) 15U/L (15-37) Alanine Aminotransferase (ALT/SGPT) 37U/L (16-63) Alkaline Phosphatase 88U/L (46-116) Total Protein 6.2g/dL (6.4-8.2) Albumin 3.1g/dL (3.4-5.0) Albumin/Globulin Ratio 1.0 (1.0-1.7) Thyroid Stimulating Hormone (TSH) 0.599uIU/mL (0.358-3.74) Test 02/16/17 08:18 Glucose (Fingerstick) 104mg/dL (70-99) Physical Exam HEENT: Neck Supple W Full Motion Chest: Symmetric LUNGS: Clear to Auscultation Heart: S1S2, RRR (currently atrial paced; with intermittent V and AV pacing) Abdomen: Soft N/T Extremities: No Calf Tenderness, Other (1-2+ bilateral LE pitting edema) Neurology: alert, oriented, follow commands Assessment Assessment 1. Mixed NICM/ICM: compensated 2. S/P ICD shock x1: likely from AFIB RVR 3. PAFIB Recommendations 1. Continue with Dig and will increase metoprolol tartrate to 50 mg po bid 2. Continue with xarelto and secondary prevention measures 3. Anticipate DC this afternoon if BP remains adequate. 4. Device interrogation reviewed 4. Follow up in office on March 10 at 0945. CRYSTAL BAUTISTA APRN February 16, 2017 10:10
[2017-02-16] MEDS ORDERED: METOPROLOL TART IMMED RELEASE 25 MG TABLET. PO ONE (10:30)
[2017-02-16 10:54] VITALS: BP 124/80
[2017-02-16] MEDS ORDERED: ANTI-COAG MONITOR BY PHARMACY. MC PRN (13:45)
[2017-02-16 14:36] VITALS: BP 120/72
[2017-02-16] MEDS ORDERED: METOPROLOL TART IMMED RELEASE 50 MG TABLET. PO SCH (21:00)
== END 2017-02-16 16:10 | disposition home health service (06) | DRG 309 ==
LOC: ER 07:06 → 2 SOUTH 12:49
PROVIDERS: ADMIT Internal Medicine; ATTEND Internal Medicine
PROC: 4B02XSZ Measurement of Cardiac Pacemaker, External Approach (ICD-10-PCS; principal; 2017-02-14)
DX: I48.1 Persistent atrial fibrillation (principal); I13.0 Hypertensive heart and chronic kidney disease with heart failure and stage 1 through stage 4 chronic kidney disease, or unspecified chronic kidney disease; I50.30 Unspecified diastolic (congestive) heart failure; I42.9 Cardiomyopathy, unspecified; E78.5 Hyperlipidemia, unspecified; F03.90 Unspecified dementia, unspecified severity, without behavioral disturbance, psychotic disturbance, mood disturbance, and anxiety; I25.10 Atherosclerotic heart disease of native coronary artery without angina pectoris; K21.9 Gastro-esophageal reflux disease without esophagitis; M54.16 Radiculopathy, lumbar region; M19.90 Unspecified osteoarthritis, unspecified site; G89.29 Other chronic pain; M54.5 Low back pain; E16.2 Hypoglycemia, unspecified; N18.9 Chronic kidney disease, unspecified; Z82.49 Family history of ischemic heart disease and other diseases of the circulatory system; Z86.718 Personal history of other venous thrombosis and embolism; Z86.79 Personal history of other diseases of the circulatory system; Z98.61 Coronary angioplasty status; Z91.041 Radiographic dye allergy status; Z91.040 Latex allergy status; Z91.09 Other allergy status, other than to drugs and biological substances; Z79.01 Long term (current) use of anticoagulants; Z86.711 Personal history of pulmonary embolism; Z91.19 Patient's noncompliance with other medical treatment and regimen
CPT/HCPCS: 36415; 71010; 80048; 80053; 80076; 80162; 81001; 82947; 83036; 83735; 83880; 84100; 84443; 84484; 85027; 85610; 85730; 93005; 93308; 96374; G0481; J7042; Q0163; 99285-25

== ENCOUNTER 2017-02-24 03:13 | Emergency (ER) | payer BC, MEDICARE ==
[~2017-02-24] VITALS: Ht 190.5 cm; Wt 79.4 kg
[~2017-02-24 03:13] MED LIST changes: +CLOT15CR3 TP; +DIPH25CA58 PO; +METO25TA9 PO; +TAMS0.4C2 PO
[2017-02-24 03:24] VITALS: BP 148/67
[2017-02-24] MEDS ORDERED: predniSONE 10 MG TABLET PO ONE (03:45)
[2017-02-24] MEDS ORDERED: DIPH25CA58 PO (03:49)
[2017-02-24] MEDS ORDERED: PRED50TA PO (03:49)
--- NOTE | 2017-02-24 03:49 | PHYS DOC ---
Past Medical History Past Medical History: CAD, GERD, Hypertension Additional Past Medical Histor: BACK PAIN Past Surgical History: Angioplasty, Pacemaker, Other Additional Past Surgical Histo: Defibrillator, hiatal hernia, back surgery Alcohol Use: Heavy Drug Use: None Adult General Chief Complaint Chief Complaint: SKIN RASH/ABSCESS HPI HPI Patient is a 77 year old gentleman who presents here today with a rash to his body. Patient has had this similar rash at times and discomfort to the ER he says 3-4 times in the past has been told that he has allergic reaction and was given Benadryl and penicillin. Patient is here today because the rash has come back again. Patient reports he is not sick at the advice or pain of the specialist in the field dermatology. Patient denies any fevers shakes chills nausea vomiting diarrhea chest pain returns of breath. Patient reports that the rash itches and they're essentially no pain component whatsoever. Rash is diffuse in nature. Rash is not dermatomal. Exam is unremarkable except for multiple maculopapular lesions throughout his body including his back abdomen and arms. There is no pustules. Not dermatomal. Oropharynx clear. No wheezing. No airway Or malaise. A/P allergic reaction. Rash to me appears to be most likely secondary to insect bites. Patient will be discharged home with prednisone. And Benadryl. Patient drove himself here so we will just give him a dose of prednisone now. Review of Systems Review of Systems Constitutional: Denies fever or chills [] Eyes: Denies change in visual acuity, redness, or eye pain [] All other review systems are negative except as documented in the history of present illness portion. Allergies Allergies Allergies Coded Allergies Type Severity Reaction Last Updated Verified Iodinated Contrast Media - IV Dye Allergy Severe anaphalaxis, short of air Yes adhesive Allergy Severe PAINFUL SKIN IRRITATION 06/06/15 Yes latex Allergy Intermediate Hives 06/06/15 Yes Physical Exam Physical Exam Constitutional: Well developed, well nourished, no acute distress, non-toxic appearance. [] HENT: Normocephalic, atraumatic, bilateral external ears normal, oropharynx moist, no oral exudates, nose normal. [] Eyes: PERRLA, EOMI, conjunctiva normal, no discharge. [] Neck: Normal range of motion, no tenderness, supple, no stridor. [] Cardiovascular:Heart rate regular rhythm, no murmur [] Lungs & Thorax: Bilateral breath sounds clear to auscultation [] Abdomen: Bowel sounds normal, soft, no tenderness, no masses, no pulsatile masses. [] Skin: Warm, dry see above. Back: No tenderness, no CVA tenderness. [] Extremities: No tenderness, no cyanosis, no clubbing, ROM intact, no edema. [] Neurologic: Alert and oriented X 3, normal motor function, normal sensory function, no focal deficits noted. [] Psychologic: Affect normal, judgement normal, mood normal. [] Current Patient Data Vital Signs Vital Signs Date Time Temp Pulse Resp B/P (MAP) Pulse Ox O2 Delivery O2 Flow Rate FiO2 02/24/17 03:24 98.5 110 16 98 Room Air 98.5 EKG EKG [] Radiology/Procedures Radiology/Procedures [] Course & Med Decision Making Course & Med Decision Making Pertinent Labs and Imaging studies reviewed. (See chart for details) [] Dragon Disclaimer Dragon Disclaimer This electronic medical record was generated, in whole or in part, using a voice recognition dictation system. Departure Departure Impression: Primary Impression: Rash Additional Impression: Skin irritation Disposition: HOME, SELF-CARE Condition: IMPROVED Referrals: NO PCP (PCP) Patient Instructions: Rash Additional Instructions: Please make an appointment to see a diesel inspector said they can evaluate your rash to determine the exact etiology of it. Scripts Prednisone (PREDNISONE) 50 Mg Tablet 1 TAB PO DAILY, #5 TAB Prov: NISH HARTMANN MD 02/24/17 Diphenhydramine Hcl (BENADRYL) 25 Mg Capsule 2 CAP PO Q6HRS Y for ITCHING, #14 CAP 2 Refills Prov: NISH HARTMANN MD 02/24/17 Problem Qualifiers NISH HARTMANN MD February 24, 2017 03:49
[2017-02-24] MEDS ORDERED: predniSONE 20 MG TABLET ONE (04:00)
[2017-02-24] MEDS ORDERED: predniSONE 10 MG TABLET ONE (04:04)
== END 2017-02-24 04:08 | disposition home or self-care (01) ==
LOC: ER 03:13
DX: R21 Rash and other nonspecific skin eruption (principal); I10 Essential (primary) hypertension; K21.9 Gastro-esophageal reflux disease without esophagitis; I25.10 Atherosclerotic heart disease of native coronary artery without angina pectoris; Z95.5 Presence of coronary angioplasty implant and graft; Z95.810 Presence of automatic (implantable) cardiac defibrillator; Z91.048 Other nonmedicinal substance allergy status; F10.10 Alcohol abuse, uncomplicated; Z98.890 Other specified postprocedural states; Z91.041 Radiographic dye allergy status; Z91.040 Latex allergy status
CPT/HCPCS: 99283; J7512

== ENCOUNTER → 2017-09-24 | Outpatient (CLI) | payer BC, MEDICARE ==
[~2017-09-24] MED LIST changes: +ASPI-630 PO; -ASPI325T4 PO; +ASPI325T8 PO; -ASPI81TA2 PO; -CLOP75TA27 PO; +CLOP75TA57 PO; +METO-239 PO; -METO25TA9 PO; +PRED50TA PO
--- NOTE | 2017-09-24 12:15 | RAD ---
History: Head Ache. Comparison: January 19, 2015. Axial images were obtained without contrast. His mild diffuse atrophy expected for the patient's age. There is left frontal lobe encephalomalacia which was seen previously. There is no mass effect, extraaxial fluid collections or hydrocephalus. There is no gross bleed. 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 No change. No acute findings. PQRS Compliance Statement: One or more of the following individualized dose reduction techniques were utilized for this examination: 1. Automated exposure control 2. Adjustment of the mA and/or kV according to patient size 3. Use of iterative reconstruction technique
== END | disposition home or self-care (01) ==
LOC: CT 09:57
PROVIDERS: ATTEND Nurse Practitioner Gerontology
DX: R51 Headache (principal)
CPT/HCPCS: 70450

== ENCOUNTER 2018-03-26 14:33 | Inpatient (IN) | payer MEDICARE, BC ==
[2018-03-26 15:12] LABS: ADD MAN DIFF? NO
[2018-03-26 15:23] LABS: BASO % 1 % (0-3); EOS # 0.2 x10^3/uL (0.0-0.7); EOS % 4 % (0-3); HEMATOCRIT 44.2 % (39.0-53.0); LYMPH # 1.5 x10^3/uL (1.0-4.8); LYMPH % 36 % (24-48); MEAN CORPUSCULAR HEMOGLOBIN 33 pg (25-35); MEAN CORPUSCULAR HGB CONC 34 g/dL (31-37); MEAN CORPUSCULAR VOLUME 98 fL (79-100); MONO # 0.5 x10^3/uL (0.0-1.1); MONO % 13 % (0-9); NEUT % 47 % (31-73); PLATELET COUNT 260 x10^3/uL (140-400); RED BLOOD COUNT 4.49 x10^6/uL (4.30-5.70); WHITE BLOOD COUNT 4.3 x10^3/uL (4.0-11.0)
[2018-03-26 15:34] LABS: INR 1.2 (0.8-1.1); PROTHROMBIN TIME PATIENT 15.1 SEC (11.7-14.0)
[2018-03-26 15:45] LABS: ANION GAP 9 (6-14); BLOOD UREA NITROGEN 17 mg/dL (8-26); CALCIUM 8.8 mg/dL (8.5-10.1); CARBON DIOXIDE 27 mmol/L (21-32); CHLORIDE 106 mmol/L (98-107); CREATININE 0.9 mg/dL (0.7-1.3); GFR 99.3; GLUCOSE 123 mg/dL (70-99); POTASSIUM 3.7 mmol/L (3.5-5.1); SODIUM 142 mmol/L (136-145)
[2018-03-26 15:53] LABS: TROPONINI < 0.017 ng/mL (0.000-0.055)
[2018-03-26 15:58] LABS: NT-PRO BNP 135 pg/mL (0-449)
[2018-03-26] MEDS ORDERED: fentaNYL PF VIAL 100 MCG/2 ML VIAL IV (16:30)
[2018-03-26] MEDS ORDERED: ACETAMINOPHEN 325 MG TABLET. PO (16:30)
[2018-03-26] MEDS ORDERED: ONDANSETRON PF 4 MG/2 ML VIAL. IV (16:30)
[2018-03-26] MEDS: NITROGLYCERIN SUBLINGUAL 0.4 MG BOTTLE OF 25. SL ×2 (17:06→17:21)
[2018-03-26 21:08] LABS: TROPONINI < 0.017 ng/mL (0.000-0.055)
[2018-03-26] MEDS ORDERED: ANTI-COAG MONITOR BY PHARMACY. MC (22:15)
[2018-03-26] MEDS: SIMVASTATIN 20 MG TABLET PO (22:30)
[2018-03-26] MEDS: TAMSULOSIN 0.4 MG CAP.ER.24H. PO (22:30)
[2018-03-26] MEDS: traZODone 50 MG TABLET. PO (22:31)
[2018-03-26] MEDS: diphenhydrAMINE HCL 25 MG CAPSULE PO (22:31)
[2018-03-26] MEDS: GABAPENTIN 300 MG CAPSULE. PO (22:31)
[2018-03-26] MEDS: HYDROcodone/APAP 10/325 1 TAB TABLET PO (22:31)
[2018-03-26] MEDS: RIVAROXABAN 10 MG TABLET. PO (22:31)
[2018-03-26 23:44] LABS: TROPONINI < 0.017 ng/mL (0.000-0.055)
[2018-03-27] MEDS: HYDROcodone/APAP 10/325 1 TAB TABLET PO ×2 (02:45→20:24)
[2018-03-27 04:58] LABS: ADD MAN DIFF? NO
[2018-03-27 05:12] LABS: BASO # 0.1 x10^3/uL (0.0-0.2); BASO % 1 % (0-3); EOS # 0.2 x10^3/uL (0.0-0.7); EOS % 4 % (0-3); HEMATOCRIT 43.3 % (39.0-53.0); HEMOGLOBIN 14.6 g/dL (13.0-17.5); LYMPH % 43 % (24-48); MEAN CORPUSCULAR HEMOGLOBIN 33 pg (25-35); MEAN CORPUSCULAR HGB CONC 34 g/dL (31-37); MEAN CORPUSCULAR VOLUME 99 fL (79-100); MONO # 0.6 x10^3/uL (0.0-1.1); MONO % 12 % (0-9); NEUT # 1.8 x10^3uL (1.8-7.7); NEUT % 39 % (31-73); PLATELET COUNT 252 x10^3/uL (140-400); RED BLOOD COUNT 4.37 x10^6/uL (4.30-5.70); RED CELL DISTRIBUTION WIDTH 16.1 % (11.5-14.5); WHITE BLOOD COUNT 4.6 x10^3/uL (4.0-11.0)
[2018-03-27 05:32] LABS: ALBUMIN 3.4 g/dL (3.4-5.0); ALK PHOS 98 U/L (46-116); ALT (SGPT) 19 U/L (16-63); ANION GAP 9 (6-14); AST (SGOT) 20 U/L (15-37); BLOOD UREA NITROGEN 18 mg/dL (8-26); BUN/CREATININE RATIO 18 (6-20); CALCIUM 8.9 mg/dL (8.5-10.1); CARBON DIOXIDE 28 mmol/L (21-32); CHLORIDE 104 mmol/L (98-107); GFR 87.9; GLUCOSE 47 mg/dL (70-99); SODIUM 141 mmol/L (136-145); TOTAL BILIRUBIN 0.3 mg/dL (0.2-1.0); TOTAL PROTEIN 6.7 g/dL (6.4-8.2)
[2018-03-27] MEDS ORDERED: NITROGLYCERIN SUBLINGUAL 0.4 MG BOTTLE OF 25. SL (08:00)
[2018-03-27] MEDS: ASPIRIN CHEWABLE 81 MG TABLET. PO (08:24)
[2018-03-27] MEDS: GABAPENTIN 300 MG CAPSULE. PO ×3 (08:24→20:23)
[2018-03-27] MEDS: PANTOPRAZOLE 40 MG TABLET.DR. PO (08:24)
[2018-03-27] MEDS: DIGOXIN 125 MCG TABLET. PO (08:25)
[2018-03-27] MEDS: CLOPIDOGREL BISULFATE 75 MG TABLET PO (08:27)
[2018-03-27] MEDS: LISINOPRIL 5 MG TABLET. PO (08:27)
[2018-03-27] MEDS: METOPROLOL SUCC 24HR ER 25 MG TAB.ER.24H. PO (08:28)
[2018-03-27] MEDS ORDERED: NON FORMULARY ITEM (Prednisone 1 TAB) PO (09:00)
[2018-03-27] MEDS: TAMSULOSIN 0.4 MG CAP.ER.24H. PO (20:23)
[2018-03-27] MEDS: SIMVASTATIN 20 MG TABLET PO (20:24)
[2018-03-27] MEDS: traZODone 50 MG TABLET. PO (20:24)
[2018-03-27] MEDS: RIVAROXABAN 10 MG TABLET. PO (20:24)
[2018-03-28] MEDS: REGADENOSON 0.4 MG/5 ML DISP.SYRIN. IV (09:38)
[2018-03-28] MEDS: CLOPIDOGREL BISULFATE 75 MG TABLET PO (11:11)
[2018-03-28] MEDS: ASPIRIN CHEWABLE 81 MG TABLET. PO (11:11)
[2018-03-28] MEDS: GABAPENTIN 300 MG CAPSULE. PO (11:11)
[2018-03-28] MEDS: DIGOXIN 125 MCG TABLET. PO (11:12)
[2018-03-28] MEDS: LISINOPRIL 5 MG TABLET. PO (11:12)
[2018-03-28] MEDS: PANTOPRAZOLE 40 MG TABLET.DR. PO (11:12)
[2018-03-28] MEDS: METOPROLOL SUCC 24HR ER 25 MG TAB.ER.24H. PO (11:13)
== END 2018-03-28 15:35 | disposition home health service (06) | DRG 313 ==
LOC: ER 14:33 → 2 NORTH 16:20
DX: R07.9 Chest pain, unspecified (principal); I13.0 Hypertensive heart and chronic kidney disease with heart failure and stage 1 through stage 4 chronic kidney disease, or unspecified chronic kidney disease; I50.30 Unspecified diastolic (congestive) heart failure; I42.9 Cardiomyopathy, unspecified; I25.10 Atherosclerotic heart disease of native coronary artery without angina pectoris; E78.5 Hyperlipidemia, unspecified; F03.90 Unspecified dementia, unspecified severity, without behavioral disturbance, psychotic disturbance, mood disturbance, and anxiety; I48.2 Chronic atrial fibrillation; K21.9 Gastro-esophageal reflux disease without esophagitis; K57.90 Diverticulosis of intestine, part unspecified, without perforation or abscess without bleeding; K64.8 Other hemorrhoids; M19.90 Unspecified osteoarthritis, unspecified site; M54.16 Radiculopathy, lumbar region; N18.3 Chronic kidney disease, stage 3 (moderate); Z79.01 Long term (current) use of anticoagulants; Z79.82 Long term (current) use of aspirin; Z82.49 Family history of ischemic heart disease and other diseases of the circulatory system; Z86.711 Personal history of pulmonary embolism; Z86.718 Personal history of other venous thrombosis and embolism; Z86.79 Personal history of other diseases of the circulatory system; Z95.5 Presence of coronary angioplasty implant and graft; Z95.810 Presence of automatic (implantable) cardiac defibrillator; Z88.8 Allergy status to other drugs, medicaments and biological substances; Z91.041 Radiographic dye allergy status; Z91.040 Latex allergy status
CPT/HCPCS: 36415; 71045; 78452; 80048; 80053; 83880; 84484; 85025; 85610; 93005; 93017; 96374; 96375; 96376; 99285; 99285-25; A9500; J2785; Q0163

== ENCOUNTER 2018-06-30 23:43 | Emergency (ER) | payer MEDICARE, BC ==
[~2018-06-30] VITALS: Ht 185.4 cm; Wt 83.9 kg
[~2018-06-30 23:43] MED LIST changes: +TRAZ-85 PO; -TRAZ50TA15 PO
[2018-07-01] MEDS ORDERED: RIVAROXABAN 15 MG TABLET. PO ONE (01:00)
[2018-07-01] MEDS ORDERED: IPRATRPIUM/ALBUTEROL 0.5/2.5MG 3 ML NEBU. NEB ONE (01:00)
[2018-07-01 01:37] LABS: BASO # 0.1 x10^3/uL (0.0-0.2); BASO % 1 % (0-3); EOS # 0.3 x10^3/uL (0.0-0.7); EOS % 5 % (0-3); HEMATOCRIT 45.7 % (39.0-53.0); HEMOGLOBIN 15.7 g/dL (13.0-17.5); LYMPH # 1.7 x10^3/uL (1.0-4.8); LYMPH % 26 % (24-48); MEAN CORPUSCULAR HEMOGLOBIN 34 pg (25-35); MEAN CORPUSCULAR HGB CONC 35 g/dL (31-37); MEAN CORPUSCULAR VOLUME 98 fL (79-100); MONO # 0.7 x10^3/uL (0.0-1.1); MONO % 11 % (0-9); NEUT # 3.8 x10^3uL (1.8-7.7); NEUT % 57 % (31-73); PLATELET COUNT 264 x10^3/uL (140-400); RED BLOOD COUNT 4.68 x10^6/uL (4.30-5.70); RED CELL DISTRIBUTION WIDTH 13.6 % (11.5-14.5); WHITE BLOOD COUNT 6.7 x10^3/uL (4.0-11.0)
[2018-07-01 01:44] LABS: PROTHROMBIN TIME PATIENT 14.7 SEC (11.7-14.0)
[2018-07-01 01:52] LABS: CALCIUM 9.6 mg/dL (8.5-10.1); CREATININE 1.1 mg/dL (0.7-1.3); GFR 78.7
[2018-07-01 01:55] LABS: ALBUMIN 3.7 g/dL (3.4-5.0); ALBUMIN/GLOBULIN RATIO 1.1 (1.0-1.7); TOTAL BILIRUBIN 0.6 mg/dL (0.2-1.0); TOTAL PROTEIN 7.2 g/dL (6.4-8.2)
[2018-07-01] MEDS ORDERED: DOXY100C2 PO (02:50)
[2018-07-01] MEDS ORDERED: BENZ100C PO (02:50)
[2018-07-01] MEDS ORDERED: PRED50TA PO (02:50)
[2018-07-01] MEDS ORDERED: PROAIR HFA8.5 GM INH (02:50)
[2018-07-01 03:00] VITALS: BP 123/75
[2018-07-01] MEDS ORDERED: predniSONE 20 MG TABLET PO ONE (03:00)
[2018-07-01] MEDS ORDERED: guaiFENesin ORAL 200 MG/10 ML LIQUID. PO ONE (03:00)
[2018-07-01] MEDS ORDERED: DOXYCYCLINE HYCLATE 100 MG TABLET PO ONE (03:00)
--- NOTE | 2018-07-01 03:18 | PHYS DOC ---
Past Medical History Past Medical History: COPD, TIA Additional Past Medical Histor: BACK PAIN Past Surgical History: Lumbar Laminectomy, Other Additional Past Surgical Histo: esophagus; hernia; Alcohol Use: Rarely Drug Use: None Adult General Chief Complaint Chief Complaint: SHORTNESS OF BREATH HPI HPI Patient is a 78 year old male with multiple medical problems who is presenting with shortness of breath. He has had sore throat dry cough and runny nose last few days and over the last day or 2 his had increasing shortness of breath not exertional worse with coughing no chest pain using house which helped somewhat but getting worse. Review of Systems Review of Systems Constitutional: Denies fever or chills [] in HPI [] GI: Denies abdominal pain, nausea, vomiting, bloody stools or diarrhea [] : Denies dysuria or hematuria [] Musculoskeletal: Denies back pain or joint pain [] Integument: Denies rash or skin lesions [] Neurologic: Denies headache, focal weakness or sensory changes [] Endocrine: Denies polyuria or polydipsia [] All other systems were reviewed and found to be within normal limits, except as documented in this note. Current Medications Current Medications Current Medications Medications (Trade) Dose Ordered Sig/Alma Rosa Start Time Stop Time Status Last Admin Dose Admin Albuterol/ Ipratropium (Duoneb) 3 ml 1X ONCE 07/01/18 01:00 07/01/18 01:01 DC 07/01/18 00:39 3 ML Doxycycline Hyclate (Vibra-Tab) 100 mg 1X ONCE 07/01/18 03:00 07/01/18 03:01 DC 07/01/18 03:04 100 MG Guaifenesin (Robitussin) 200 mg 1X ONCE 07/01/18 03:00 07/01/18 03:01 DC 07/01/18 03:05 200 MG Prednisone (Prednisone) 50 mg 1X ONCE 07/01/18 03:00 07/01/18 03:01 DC 07/01/18 03:05 50 MG Rivaroxaban (Xarelto) 15 mg 1X ONCE 07/01/18 01:00 07/01/18 01:01 DC 07/01/18 01:46 15 MG Allergies Allergies Allergies Coded Allergies Type Severity Reaction Last Updated Verified Iodinated Contrast- Oral and IV Dye Allergy Severe anaphalaxis, short of air Yes adhesive Allergy Severe PAINFUL SKIN IRRITATION 06/06/15 Yes latex Allergy Intermediate Hives 06/06/15 Yes Physical Exam Physical Exam Constitutional: Well developed, well nourished, no acute distress, non-toxic appearance. [] HENT: Normocephalic, atraumatic, bilateral external ears normal, oropharynx moist, no oral exudates, nose normal. [] Eyes: PERRLA, EOMI, conjunctiva normal, no discharge. [] Neck: Normal range of motion, no tenderness, supple, no stridor. [] Cardiovascular:Heart rate regular rhythm, no murmur [] Lungs & Thorax: Wheezing noted bilaterally there's a frequent dry reactive cough noted Abdomen: Bowel sounds normal, soft, no tenderness, no masses, no pulsatile masses. [] Skin: Warm, dry, no erythema, no rash. [] Back: No tenderness, no CVA tenderness. [] Extremities: No tenderness, no cyanosis, no clubbing, ROM intact, no edema. [] Neurologic: Alert and oriented X 3, normal motor function, normal sensory function, no focal deficits noted. [] Psychologic: Affect normal, judgement normal, mood normal. [] Current Patient Data Vital Signs Vital Signs Date Time Temp Pulse Resp B/P (MAP) Pulse Ox O2 Delivery O2 Flow Rate FiO2 07/01/18 00:40 Room Air 07/01/18 00:01 98.8 97 22 157/93 (114) 95 98.8 Lab Values Laboratory Tests Test 07/01/18 01:20 White Blood Count 6.7 x10^3/uL (4.0-11.0) Red Blood Count 4.68 x10^6/uL (4.30-5.70) Hemoglobin 15.7 g/dL (13.0-17.5) Hematocrit 45.7 % (39.0-53.0) Mean Corpuscular Volume 98 fL (79-100) Mean Corpuscular Hemoglobin 34 pg (25-35) Mean Corpuscular Hemoglobin Concent 35 g/dL (31-37) Red Cell Distribution Width 13.6 % (11.5-14.5) Platelet Count 264 x10^3/uL (140-400) Neutrophils (%) (Auto) 57 % (31-73) Lymphocytes (%) (Auto) 26 % (24-48) Monocytes (%) (Auto) 11 % (0-9) H Eosinophils (%) (Auto) 5 % (0-3) H Basophils (%) (Auto) 1 % (0-3) Neutrophils # (Auto) 3.8 x10^3uL (1.8-7.7) Lymphocytes # (Auto) 1.7 x10^3/uL (1.0-4.8) Monocytes # (Auto) 0.7 x10^3/uL (0.0-1.1) Eosinophils # (Auto) 0.3 x10^3/uL (0.0-0.7) Basophils # (Auto) 0.1 x10^3/uL (0.0-0.2) Prothrombin Time 14.7 SEC (11.7-14.0) H Prothrombin Time INR 1.2 (0.8-1.1) H Sodium Level 141 mmol/L (136-145) Potassium Level 4.0 mmol/L (3.5-5.1) Chloride Level 103 mmol/L (98-107) Carbon Dioxide Level 28 mmol/L (21-32) Anion Gap 10 (6-14) Blood Urea Nitrogen 15 mg/dL (8-26) Creatinine 1.1 mg/dL (0.7-1.3) Estimated GFR (Cockcroft-Gault) 78.7 BUN/Creatinine Ratio 14 (6-20) Glucose Level 99 mg/dL (70-99) Calcium Level 9.6 mg/dL (8.5-10.1) Total Bilirubin 0.6 mg/dL (0.2-1.0) Aspartate Amino Transferase (AST) 19 U/L (15-37) Alanine Aminotransferase (ALT) 13 U/L (16-63) L Alkaline Phosphatase 115 U/L (46-116) Troponin I Quantitative < 0.017 ng/mL (0.000-0.055) WB-Pin-D-Type Natriuretic Peptide 174 pg/mL (0-449) Total Protein 7.2 g/dL (6.4-8.2) Albumin 3.7 g/dL (3.4-5.0) Albumin/Globulin Ratio 1.1 (1.0-1.7) Laboratory Tests 07/01/18 01:20 Laboratory Tests 07/01/18 01:20 EKG EKG [] Interpretation Time: EKG showed normal sinus rhythm rate of 89 there are some nonspecific anterior changes similar to March 26, 2018. Radiology/Procedures Radiology/Procedures [] Impressions: My interpretation chest x-ray is negative acute no pneumonia seen Course & Med Decision Making Course & Med Decision Making Pertinent Labs and Imaging studies reviewed. (See chart for details) []78 show male history of reported COPD PE currently on Xarelto multiple other medical problems as noted above presenting with signs and symptoms most consistent with COPD exacerbation bronchitis Patient is given nebulizer in the emergency room lungs now clear patient feels better still coughing prescription for prednisone doxycycline albuterol and Tessalon Perles were given. No evidence of pneumonia CHF or AR in the emergency room. Patient is on Xarelto no tachycardia or hypoxia given the infectious symptoms I think that PE is highly unlikely. Dragon Disclaimer Dragon Disclaimer This electronic medical record was generated, in whole or in part, using a voice recognition dictation system. Departure Departure Impression: Primary Impression: Bronchitis Disposition: 01 HOME, SELF-CARE Condition: STABLE Patient Instructions: Bronchitis, [id number] Scripts Benzonatate (TESSALON PERLE) 100 Mg Capsule 1 CAP PO TID, #21 CAP Prov: JULISSA BARRAZA MD 07/01/18 Albuterol Sulfate (PROAIR HFA INHALER) 8.5 Gm Hfa.aer.ad 1 PUFF INH PRN Q6HRS PRN for SHORTNESS OF BREATH, #1 INHALER 0 Refills Prov: JULISSA BARRAZA MD 07/01/18 Doxycycline Hyclate (DOXYCYCLINE HYCLATE) 100 Mg Capsule 1 CAP PO BID, #20 CAP Prov: JULISAS BARRAZA MD 07/01/18 Prednisone (PREDNISONE) 50 Mg Tablet 1 TAB PO DAILY, #5 TAB Prov: JULISSA BARRAZA MD 07/01/18 JULISSA BARRAZA MD Jul 01, 2018 03:18
--- NOTE | 2018-07-01 07:34 | EKG ---
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
--- NOTE | 2018-07-01 08:19 | RAD ---
EXAM: Chest, single view. HISTORY: Cough. COMPARISON: 03/26/2018 FINDINGS: A frontal view of the chest is obtained. There is no infiltrate, pleural effusion or pneumothorax. The heart is normal in size. There is a cardiac pacemaker defibrillator with leads in expected position. There is slight blunting of the right costophrenic angle likely due to basilar atelectasis. IMPRESSION: No acute pulmonary finding. Electronically signed by: Roseanne Kitchen MD (07/01/2018 8:15 AM) [place] [id number]
== END 2018-07-01 03:10 | disposition home or self-care (01) ==
LOC: ER 23:43
DX: J44.9 Chronic obstructive pulmonary disease, unspecified (principal); J02.9 Acute pharyngitis, unspecified; Z86.73 Personal history of transient ischemic attack (TIA), and cerebral infarction without residual deficits; Z88.8 Allergy status to other drugs, medicaments and biological substances; Z91.041 Radiographic dye allergy status; Z91.040 Latex allergy status
CPT/HCPCS: 36415; 71045; 80053; 83880; 84484; 85025; 85610; 93005; 94640; 99285; J7512; J7620

== ENCOUNTER 2018-08-16 01:58 | Inpatient (IN) | payer MEDICARE, BC ==
[~2018-08-16] VITALS: Ht 190.5 cm; Wt 97.6 kg
[~2018-08-16 01:58] MED LIST changes: +BENZ100C PO; +DOXY100C2 PO; +PROAIR HFA8.5 GM INH
[2018-08-16] MEDS ORDERED: IPRATROPIUM BROMIDE 0.5 MG/2.5 ML NEBU. NEB ONE (02:00)
[2018-08-16] MEDS ORDERED: IPRATROPIUM BROMIDE 0.5 MG/2.5 ML NEBU. ONE (02:00)
[2018-08-16] MEDS ORDERED: ALBUTEROL SULFATE 2.5 MG/3 ML NEBU. CONT NEB ONE (02:00)
[2018-08-16] MEDS ORDERED: ALBUTEROL SULFATE 2.5 MG/3 ML NEBU. ONE (02:00)
--- NOTE | 2018-08-16 02:07 | PHYS DOC ---
Past Medical History Past Medical History: COPD, TIA Additional Past Medical Histor: BACK PAIN Past Surgical History: Lumbar Laminectomy, Other Additional Past Surgical Histo: esophagus; hernia; Alcohol Use: Rarely Drug Use: None Adult General Chief Complaint Chief Complaint: DYSPNEA/RESPIRATOY DISTRESS HPI HPI Patient is a 78-year-old male who presents with complaint of cough and shortness of breath for the last 5 weeks. Patient states that he is been treated for bronchitis 2 times with a Z-Fermin but states that his symptoms are progressively worsening. Patient has done breathing treatments at home tonight without improvement of shortness of breath. Patient arrived via EMS and EMS and also provided a breathing treatment but they state that there was no improvement. EMS states that patient's oxygen saturation was 90% on room air. Patient states that symptoms are worsened with minimal exertion. He denies any chest pain. Patient is not sure whether or not he has run a fever. He states that nothing is improving his symptoms. Review of Systems Review of Systems Constitutional: Denies fever or chills [] Respiratory: Complains of cough and shortness of breath[] Cardiovascular: No additional information not addressed in HPI [] GI: Denies abdominal pain, nausea, vomiting or diarrhea [] Musculoskeletal: Complains of back pain with cough[] All other systems were reviewed and found to be within normal limits, except as documented in this note. Current Medications Current Medications Current Medications Medications (Trade) Dose Ordered Sig/Alma Rosa Start Time Stop Time Status Last Admin Dose Admin Albuterol Sulfate (Ventolin Neb Soln) 10 mg 1X ONCE 08/16/18 02:00 08/16/18 02:09 DC 08/16/18 02:06 10 MG Ipratropium [place] (Atrovent) 0.5 mg 1X ONCE 08/16/18 02:00 08/16/18 02:09 DC 08/16/18 02:06 0.5 MG Methylprednisolone Sodium Succinate (SOLU-Medrol 125MG VIAL) 125 mg 1X ONCE 08/16/18 02:30 08/16/18 02:31 DC 08/16/18 02:24 125 MG Sodium Chloride 1,000 ml @ 100 mls/hr Q10H 08/16/18 02:30 08/16/18 12:29 08/16/18 02:24 100 MLS/HR Allergies Allergies Allergies Coded Allergies Type Severity Reaction Last Updated Verified Iodinated Contrast- Oral and IV Dye Allergy Severe anaphalaxis, short of air Yes adhesive Allergy Severe PAINFUL SKIN IRRITATION 06/06/15 Yes latex Allergy Intermediate Hives 06/06/15 Yes Physical Exam Physical Exam Constitutional: Well developed, well nourished, no acute distress, non-toxic appearance. [] HENT: Normocephalic, atraumatic, bilateral external ears normal, oropharynx dry , no oral exudates, nose normal. [] Eyes: PERRLA, EOMI, conjunctiva normal, no discharge. [] Neck: Normal range of motion, no tenderness, supple, no stridor. [] Cardiovascular: Heart rate regular rhythm [] Lungs & Thorax: Diminished breath sounds are noted bilaterally with coarse inspiratory and expiratory wheezes[] Abdomen: Bowel sounds normal, soft, no tenderness. [] Skin: Warm, dry, no erythema, no rash. [] Extremities: No tenderness, no cyanosis, no clubbing, ROM intact, no edema. [] Neurologic: Alert and oriented X 3, normal motor function, normal sensory function, no focal deficits noted. [] Current Patient Data Vital Signs Vital Signs Date Time Temp Pulse Resp B/P (MAP) Pulse Ox O2 Delivery O2 Flow Rate FiO2 08/16/18 02:06 94 Room Air 08/16/18 01:58 98.3 111 22 174/118 (136) 98.3 Lab Values Laboratory Tests Test 08/16/18 01:50 White Blood Count 7.4 x10^3/uL (4.0-11.0) Red Blood Count 4.41 x10^6/uL (4.30-5.70) Hemoglobin 14.3 g/dL (13.0-17.5) Hematocrit 42.5 % (39.0-53.0) Mean Corpuscular Volume 97 fL (79-100) Mean Corpuscular Hemoglobin 32 pg (25-35) Mean Corpuscular Hemoglobin Concent 34 g/dL (31-37) Red Cell Distribution Width 14.9 % (11.5-14.5) H Platelet Count 252 x10^3/uL (140-400) Neutrophils (%) (Auto) 40 % (31-73) Lymphocytes (%) (Auto) 31 % (24-48) Monocytes (%) (Auto) 11 % (0-9) H Eosinophils (%) (Auto) 19 % (0-3) H Basophils (%) (Auto) 0 % (0-3) Neutrophils # (Auto) 2.9 x10^3uL (1.8-7.7) Lymphocytes # (Auto) 2.3 x10^3/uL (1.0-4.8) Monocytes # (Auto) 0.8 x10^3/uL (0.0-1.1) Eosinophils # (Auto) 1.4 x10^3/uL (0.0-0.7) H Basophils # (Auto) 0.0 x10^3/uL (0.0-0.2) Platelet Estimate Pending Sodium Level 145 mmol/L (136-145) Potassium Level 3.9 mmol/L (3.5-5.1) Chloride Level 108 mmol/L (98-107) H Carbon Dioxide Level 27 mmol/L (21-32) Anion Gap 10 (6-14) Blood Urea Nitrogen 14 mg/dL (8-26) Creatinine 1.2 mg/dL (0.7-1.3) Estimated GFR (Cockcroft-Gault) 71.2 BUN/Creatinine Ratio 12 (6-20) Glucose Level 115 mg/dL (70-99) H Lactic Acid Level 2.3 mmol/L (0.4-2.0) H Calcium Level 9.0 mg/dL (8.5-10.1) Total Bilirubin 0.5 mg/dL (0.2-1.0) Aspartate Amino Transferase (AST) 17 U/L (15-37) Alanine Aminotransferase (ALT) 16 U/L (16-63) Alkaline Phosphatase 93 U/L (46-116) Troponin I Quantitative < 0.017 ng/mL (0.000-0.055) WY-Huy-B-Type Natriuretic Peptide 351 pg/mL (0-449) Total Protein 6.8 g/dL (6.4-8.2) Albumin 3.6 g/dL (3.4-5.0) Albumin/Globulin Ratio 1.1 (1.0-1.7) Laboratory Tests 08/16/18 01:50 Laboratory Tests 08/16/18 01:50 EKG EKG [] Interpretation Time: EKG demonstrates sinus rhythm with first-degree block. Rate of 100. Radiology/Procedures Radiology/Procedures [] Impressions: Chest x-ray demonstrates no acute process. Course & Med Decision Making Course & Med Decision Making Pertinent Labs and Imaging studies reviewed. (See chart for details) [] Dragon Disclaimer Dragon Disclaimer This electronic medical record was generated, in whole or in part, using a voice recognition dictation system. Departure Departure Impression: Primary Impression: COPD exacerbation Disposition: ADMITTED INPATIENT Admitting Physician: Marni Olivas Condition: IMPROVED Referrals: CURTIS RILEY RN, GNP (PCP) KELVIN CÁRDENAS Jr. DO Aug 16, 2018 02:07
[2018-08-16 02:12] LABS: BASO % 0 % (0-3); EOS # 1.4 x10^3/uL (0.0-0.7); EOS % 19 % (0-3); HEMATOCRIT 42.5 % (39.0-53.0); HEMOGLOBIN 14.3 g/dL (13.0-17.5); LYMPH # 2.3 x10^3/uL (1.0-4.8); LYMPH % 31 % (24-48); MEAN CORPUSCULAR HEMOGLOBIN 32 pg (25-35); MEAN CORPUSCULAR HGB CONC 34 g/dL (31-37); MEAN CORPUSCULAR VOLUME 97 fL (79-100); MONO # 0.8 x10^3/uL (0.0-1.1); MONO % 11 % (0-9); NEUT # 2.9 x10^3uL (1.8-7.7); NEUT % 40 % (31-73); PLATELET COUNT 252 x10^3/uL (140-400); RED BLOOD COUNT 4.41 x10^6/uL (4.30-5.70); RED CELL DISTRIBUTION WIDTH 14.9 % (11.5-14.5); WHITE BLOOD COUNT 7.4 x10^3/uL (4.0-11.0)
[2018-08-16 02:21] LABS: CREATININE 1.2 mg/dL (0.7-1.3); GFR 71.2; POTASSIUM 3.9 mmol/L (3.5-5.1)
[2018-08-16 02:26] LABS: ALBUMIN 3.6 g/dL (3.4-5.0); ALBUMIN/GLOBULIN RATIO 1.1 (1.0-1.7); TOTAL BILIRUBIN 0.5 mg/dL (0.2-1.0); TOTAL PROTEIN 6.8 g/dL (6.4-8.2)
[2018-08-16] MEDS ORDERED: methylPREDNISolone SOD SUCC PF 125 MG/2 ML VIAL. IV ONE (02:30)
[2018-08-16] MEDS ORDERED: IV NORMAL SALINE 1000ML BAG 1,000 ML IV SCH (02:30)
--- NOTE | 2018-08-16 03:03 | RAD ---
CHEST PA LATERAL Technique: PA and lateral views of the chest were obtained. Clinical History: DYSPNEA Comparison: July 01, 2018. Findings: The lungs are hyperinflated. The heart and pulmonary vessels appear normal. Left-sided defibrillator is again seen. Linear reticular opacities in the perihilar lungs is likely chronic pulmonary fibrosis. Impression: Stable appearance of the chest. Electronically signed by: Faizan Cheek III, MD (08/16/2018 3:00 AM) [id number]
[2018-08-16] MEDS ORDERED: ACETAMINOPHEN 325 MG TABLET. PO PRN ×2 (04:30→09:00)
--- NOTE | 2018-08-16 04:54 | EKG ---
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
[2018-08-16] MEDS: IV NORMAL SALINE 1000ML BAG 1,000 ML IV SCH ×2 (05:18→15:36)
[2018-08-16 05:36] VITALS: BP 127/76
[2018-08-16 06:09] LABS: % ATYL 2 % (0-0); % BANDS 1 % (0-9); % BASOS 3 % (0-3); % EOS 12 % (0-5); % LYMPHS 40 % (24-48); % MONOS 4 % (0-10); % SEGS 38 % (35-66); PLT ESTIMATE ADEQUATE (ADEQUATE)
[2018-08-16] MEDS ORDERED: MIRT15TA PO (06:53)
[2018-08-16 07:00] VITALS: BP 116/78
[2018-08-16] MEDS ORDERED: IPRATRPIUM/ALBUTEROL 0.5/2.5MG 3 ML NEBU. NEB SCH (08:00)
[2018-08-16] MEDS ORDERED: IPRA3AMP29 NEB (08:06)
[2018-08-16] MEDS ORDERED: NON FORMULARY ITEM (Albuterol Sulfate (Proair Hfa Inhaler) 1 PUFF) INH PRN (08:45)
[2018-08-16] MEDS ORDERED: diphenhydrAMINE HCL 25 MG CAPSULE PO PRN (08:45)
[2018-08-16] MEDS ORDERED: NON FORMULARY ITEM (Lisinopril 2.5 MG) PO SCH (09:00)
[2018-08-16] MEDS ORDERED: DIGOXIN 125 MCG TABLET. PO SCH (09:00)
[2018-08-16] MEDS ORDERED: GABAPENTIN 300 MG CAPSULE. PO PRN (09:00)
[2018-08-16] MEDS ORDERED: NON FORMULARY ITEM (Gabapentin 300 MG) PO PRN (09:00)
[2018-08-16] MEDS ORDERED: METOPROLOL SUCC 24HR ER 25 MG TAB.ER.24H. PO SCH (09:00)
[2018-08-16] MEDS ORDERED: CLOPIDOGREL BISULFATE 75 MG TABLET PO SCH (09:00)
[2018-08-16] MEDS ORDERED: ALBUTEROL SULFATE 2.5 MG/3 ML NEBU. NEB PRN (09:15)
--- NOTE | 2018-08-16 09:33 | PDOC ---
Provider Note Provider Note Patient seen. History and Physical dictated. See dictation# [id number] RENE MOON MD Aug 16, 2018 09:33
[2018-08-16] MEDS: CLOPIDOGREL BISULFATE 75 MG TABLET PO SCH (09:46)
[2018-08-16] MEDS: METOPROLOL SUCC 24HR ER 25 MG TAB.ER.24H. PO SCH (09:48)
[2018-08-16] MEDS: DIGOXIN 125 MCG TABLET. PO SCH (09:51)
[2018-08-16] MEDS: methylPREDNISolone SOD SUCC PF 40 MG/ML VIAL. IV SCH ×2 (09:53→15:48)
[2018-08-16] MEDS: LISINOPRIL 5 MG TABLET. PO SCH (09:53)
[2018-08-16] MEDS: oxyCODONE IR 5 MG TABLET PO SCH ×3 (09:55→21:10)
[2018-08-16 10:59] VITALS: BP 148/89
--- NOTE | 2018-08-16 11:10 | HP ---
ADMIT DATE: 08/16/2018 HISTORY OF PRESENT ILLNESS: This 78-year-old -[place] male started having cold, cough and congestion, progressively getting worse about 5 weeks ago. He has been to the Emergency Room and he has also been treated by the doctor who comes to his home and he has been given Zithromax x 2. However, his symptoms continued to get worse and he came to the Emergency Room. In the Emergency Room, the patient was noted to have acute exacerbation of COPD. O2 sats were 90% on room air per EMS. Chest x-ray did not show any acute infiltrates, but has left basal rales. He has been wheezing. Lactic acid was elevated at 2.3. He has felt very tired and short of breath and exhausted. He denies any nausea or vomiting, but his appetite is decreased. Denies any skin rash or swelling of the legs. Because of the clinical pneumonia with exacerbation of COPD and sepsis, the patient is being admitted for further evaluation and management. The patient has also failed several antibiotic treatments as outpatient. REVIEW OF SYSTEMS: Systems review as noted in the history of present illness. The patient's mucus is yellow. He has also been sneezing and has nasal drainage. He denies any sore throat. Other systems reviewed and are negative. PAST MEDICAL HISTORY: The patient was last admitted here in 03/2018 because of chest pain. At that time, it was noted to be musculoskeletal strain. He had a stress test and nuclear imaging did not show any reversible ischemia. He had a paced rhythm and LV systolic function was 50% at that time. He is known to have history of atrial fibrillation, on Xarelto; coronary artery disease; congestive heart failure, diastolic with ejection fraction of 55%, AICD; hypertension; syncope; hyperlipidemia; chronic bronchitis; history of dementia; diverticulosis; gastroesophageal reflux disease; internal hemorrhoids; low back pain; osteoarthritis; chronic renal insufficiency and CKD 2. PAST SURGICAL HISTORY: The patient had a pacemaker and AICD on 04/18/2018. Cataract removal, bilateral hernia repair and also had ventral hernia repair. He had EVAR repair of aortic aneurysm and right common iliac artery aneurysm, had back surgery x 2, hiatal hernia repair and history of DVT. FAMILY HISTORY: Positive for heart disease and hypertension. SOCIAL HISTORY: No history currently for smoking, alcoholism or drug abuse. PHYSICAL EXAMINATION: VITAL SIGNS: Temperature 98.3, pulse 111 per minute, respirations 22 per minute and blood pressure 174/118. GENERAL: The patient is an elderly -Pal[place] male who is alert, oriented x 3 and in [id number]-gn-rrmkryyr respiratory distress. EYES: Pupils reacting to light. Conjunctivae pale. Sclerae muddy. HENT: Throat congested. NECK: Supple. JVP normal. No thyromegaly. Trachea midline. LUNGS: Bilateral wheezing with left basal rales. CARDIOVASCULAR SYSTEM: S1, S2 irregular, tachycardia present. ABDOMEN: Soft, nontender. No guarding, no rigidity. Bowel sounds present. EXTREMITIES: No edema. CENTRAL NERVOUS SYSTEM: Alert and oriented. Has generalized weakness. Also, has symptoms of peripheral neuropathy with tingling and numbness. He has tearing from both eyes from previous Jhaveri's palsy. He has numbness and tingling of his tongue. LABORATORY DATA: WBC count 7.4, hemoglobin 14.3 and platelet count 252,000. Sodium 145, potassium 3.9, BUN 14, creatinine 1.2, lactic acid level is 2.3 and calcium 9. Troponin less than 0.017. Chest x-ray shows a chronic pulmonary fibrosis. Lungs are hyperinflated. IMPRESSION: 1. Sepsis. 2. Pneumonia. 3. Acute exacerbation of chronic obstructive pulmonary disease. 4. Coronary artery disease. 5. Peripheral neuropathy. 6. History of Jhaveri's palsy. 7. Chronic low back pain, with back surgeries x 2. 8. Chronic diastolic congestive heart failure with ejection fraction of 55% and AICD. 9. Hypertensive crisis. 10. Hyperlipidemia. 11. History of repair of the aortic aneurysm as well as right common iliac artery aneurysm. 12. History of deep venous thrombosis. 13. Osteoarthritis. 14. Diverticulosis. PLAN: Continue Xarelto for atrial fibrillation that is chronic. I will start him on IV Levaquin. Consult Dr. Resendiz for Pulmonary evaluation and management and Dr. Rushing for Infectious Disease evaluation and management. Continue breathing treatment. The patient has been given IV fluids. I have started him on IV steroids. We will monitor blood sugars. For details, please review the orders. RENE MOON MD DR: ARLENE/tess JOB#: [id number] / [id number]
[2018-08-16] MEDS: IPRATRPIUM/ALBUTEROL 0.5/2.5MG 3 ML NEBU. NEB SCH ×3 (11:18→19:45)
--- NOTE | 2018-08-16 12:02 | RAD ---
CT CHEST WO CONTRAST Indication: Pneumonia Technique: Noncontrast CT imaging was performed of the chest, multiplanar reconstruction images submitted. One or more of the following individualized dose reduction techniques were utilized for this examination: 1. Automated exposure control 2. Adjustment of the mA and/or kV according to patient size 3. Use of iterative reconstruction technique. Comparison: 12/08/2014 Findings: There is paraseptal and centrilobular emphysema seen previously. There is no pleural fluid or pneumothorax. There is mild linear density right lower lobe likely due to fibrotic changes seen previously. There is mild bronchiectasis of the lower lobes bilaterally with some associated bronchial wall thickening, segmental density in the lumen of left lower lobe bronchus best seen axial images 46-48. There is left electronic cardiac device. There is dilatation of the ascending thoracic aorta up to about 4.5 cm fairly similar. There is aortic stent graft of the abdominal aorta which is not fully evaluated. There is a 2.4 cm exophytic lesion of the right kidney as seen previously now associated with mild peripheral noncircumferential calcification, internal density measurements of 23 Hounsfield units. There is separate small focus calcification of the right kidney about 0.5 cm as seen previously. There is again dilatation of the esophagus with air-fluid level present. There is coronary calcification. Somewhat enlarged subcarinal node about 1.3 cm short axis dimension is stable, some other previously seen mediastinal nodes also unchanged. IMPRESSION: 1. There is again bronchiectasis with lower lobe predominance, associated bronchial wall thickening suggestive of bronchitis. There is also mild endobronchial density in the left lower lobe could be due to mucus plugging although underlying endobronchial mass not excluded by this exam. 2. There is emphysema. There is no lobar infiltrate. 3. There is again dilatation ascending thoracic aorta about 4.5 cm. 4. There is again dilatation of esophagus with air-fluid level. 5. There is coronary calcification. 6. There is indeterminate exophytic lesion of the right kidney although similar in size compared with 2015 exam. There is again adjacent right renal calculus. 7. There is stable nonspecific mediastinal lymphadenopathy. Electronically signed by: Colt Mtz MD (08/16/2018 12:00 PM) [id number]
[2018-08-16] MEDS: LINEZOLID 600 MG TABLET PO SCH ×2 (12:23→21:10)
[2018-08-16] MEDS: PIPERACILLIN/TAZOBACTAM 3.375 GM in IV NORMAL SALINE 50ML 50 ML IV SCH ×2 (12:24→17:51)
--- NOTE | 2018-08-16 12:38 | PDOC ---
PULMONARY PROGRESS NOTES Vitals Vital Signs Date Time Temp Pulse Resp B/P (MAP) Pulse Ox O2 Delivery O2 Flow Rate FiO2 08/16/18 11:19 95 Nasal Cannula 2.5 08/16/18 10:59 98.0 98 20 148/89 (108) 98.0 General: Alert, No acute distress Lungs: Clear Cardiovascular: S1 Abdomen: Soft Extremities: No Edema Labs Laboratory Tests Test 08/16/18 01:50 08/16/18 11:08 White Blood Count 7.4 x10^3/uL (4.0-11.0) Red Blood Count 4.41 x10^6/uL (4.30-5.70) Hemoglobin 14.3 g/dL (13.0-17.5) Hematocrit 42.5 % (39.0-53.0) Mean Corpuscular Volume 97 fL (79-100) Mean Corpuscular Hemoglobin 32 pg (25-35) Mean Corpuscular Hemoglobin Concent 34 g/dL (31-37) Red Cell Distribution Width 14.9 % (11.5-14.5) Platelet Count 252 x10^3/uL (140-400) Neutrophils (%) (Auto) 40 % (31-73) Lymphocytes (%) (Auto) 31 % (24-48) Monocytes (%) (Auto) 11 % (0-9) Eosinophils (%) (Auto) 19 % (0-3) Basophils (%) (Auto) 0 % (0-3) Neutrophils # (Auto) 2.9 x10^3uL (1.8-7.7) Lymphocytes # (Auto) 2.3 x10^3/uL (1.0-4.8) Monocytes # (Auto) 0.8 x10^3/uL (0.0-1.1) Eosinophils # (Auto) 1.4 x10^3/uL (0.0-0.7) Basophils # (Auto) 0.0 x10^3/uL (0.0-0.2) Segmented Neutrophils % 38 % (35-66) Band Neutrophils % 1 % (0-9) Lymphocytes % 40 % (24-48) Atypical Lymphocytes % (Manual) 2 % (0-0) Monocytes % 4 % (0-10) Eosinophils % 12 % (0-5) Basophils % 3 % (0-3) Platelet Estimate Adequate (ADEQUATE) Sodium Level 145 mmol/L (136-145) Potassium Level 3.9 mmol/L (3.5-5.1) Chloride Level 108 mmol/L (98-107) Carbon Dioxide Level 27 mmol/L (21-32) Anion Gap 10 (6-14) Blood Urea Nitrogen 14 mg/dL (8-26) Creatinine 1.2 mg/dL (0.7-1.3) Estimated GFR (Cockcroft-Gault) 71.2 BUN/Creatinine Ratio 12 (6-20) Glucose Level 115 mg/dL (70-99) Lactic Acid Level 2.3 mmol/L (0.4-2.0) Calcium Level 9.0 mg/dL (8.5-10.1) Total Bilirubin 0.5 mg/dL (0.2-1.0) Aspartate Amino Transf (AST/SGOT) 17 U/L (15-37) Alanine Aminotransferase (ALT/SGPT) 16 U/L (16-63) Alkaline Phosphatase 93 U/L (46-116) Troponin I Quantitative < 0.017 ng/mL (0.000-0.055) EH-Ani-L-Type Natriuretic Peptide 351 pg/mL (0-449) Total Protein 6.8 g/dL (6.4-8.2) Albumin 3.6 g/dL (3.4-5.0) Albumin/Globulin Ratio 1.1 (1.0-1.7) Glucose (Fingerstick) 186 mg/dL (70-99) Laboratory Tests Test 08/16/18 01:50 08/16/18 11:08 White Blood Count 7.4 x10^3/uL (4.0-11.0) Red Blood Count 4.41 x10^6/uL (4.30-5.70) Hemoglobin 14.3 g/dL (13.0-17.5) Hematocrit 42.5 % (39.0-53.0) Mean Corpuscular Volume 97 fL (79-100) Mean Corpuscular Hemoglobin 32 pg (25-35) Mean Corpuscular Hemoglobin Concent 34 g/dL (31-37) Red Cell Distribution Width 14.9 % (11.5-14.5) Platelet Count 252 x10^3/uL (140-400) Neutrophils (%) (Auto) 40 % (31-73) Lymphocytes (%) (Auto) 31 % (24-48) Monocytes (%) (Auto) 11 % (0-9) Eosinophils (%) (Auto) 19 % (0-3) Basophils (%) (Auto) 0 % (0-3) Neutrophils # (Auto) 2.9 x10^3uL (1.8-7.7) Lymphocytes # (Auto) 2.3 x10^3/uL (1.0-4.8) Monocytes # (Auto) 0.8 x10^3/uL (0.0-1.1) Eosinophils # (Auto) 1.4 x10^3/uL (0.0-0.7) Basophils # (Auto) 0.0 x10^3/uL (0.0-0.2) Segmented Neutrophils % 38 % (35-66) Band Neutrophils % 1 % (0-9) Lymphocytes % 40 % (24-48) Atypical Lymphocytes % (Manual) 2 % (0-0) Monocytes % 4 % (0-10) Eosinophils % 12 % (0-5) Basophils % 3 % (0-3) Platelet Estimate Adequate (ADEQUATE) Sodium Level 145 mmol/L (136-145) Potassium Level 3.9 mmol/L (3.5-5.1) Chloride Level 108 mmol/L (98-107) Carbon Dioxide Level 27 mmol/L (21-32) Anion Gap 10 (6-14) Blood Urea Nitrogen 14 mg/dL (8-26) Creatinine 1.2 mg/dL (0.7-1.3) Estimated GFR (Cockcroft-Gault) 71.2 BUN/Creatinine Ratio 12 (6-20) Glucose Level 115 mg/dL (70-99) Lactic Acid Level 2.3 mmol/L (0.4-2.0) Calcium Level 9.0 mg/dL (8.5-10.1) Total Bilirubin 0.5 mg/dL (0.2-1.0) Aspartate Amino Transf (AST/SGOT) 17 U/L (15-37) Alanine Aminotransferase (ALT/SGPT) 16 U/L (16-63) Alkaline Phosphatase 93 U/L (46-116) Troponin I Quantitative < 0.017 ng/mL (0.000-0.055) MP-Sla-A-Type Natriuretic Peptide 351 pg/mL (0-449) Total Protein 6.8 g/dL (6.4-8.2) Albumin 3.6 g/dL (3.4-5.0) Albumin/Globulin Ratio 1.1 (1.0-1.7) Glucose (Fingerstick) 186 mg/dL (70-99) Medications Active Scripts Medications Dose Route/Sig Max Daily Dose Days Date Category Dose Instructions Duoneb 0.5-3(2.5) Mg/3 Ml (Albuterol/Ipratropium) 3 Ml Ampul.neb 3 Ml NEB QIDPRN PRN 08/16/18 Reported Remeron (Mirtazapine) 15 Mg Tablet 1 Tab PO QHS 08/16/18 Reported Proair Hfa Inhaler (Albuterol Sulfate) 8.5 Gm Hfa.aer.ad 1 Puff INH PRN Q6HRS PRN 07/01/18 Rx Benadryl (Diphenhydramine Hcl) 25 Mg Capsule 2 Cap PO Q6HRS PRN 02/24/17 Rx Tamsulosin Hcl 0.4 Mg Cap.er.24h 1 Cap PO HS 02/14/17 Reported Metoprolol Succinate ( Xl ) (Metoprolol Succinate) 25 Mg Tab.er.24h 1 Tab PO DAILY 02/14/17 Reported Trazodone Hcl 50 Mg Tablet 2 Tab PO HS 03/26/15 Reported 100 mg @ HS Xarelto (Rivaroxaban) 15 Mg Tablet 20 Mg PO HS 03/26/15 Reported Simvastatin 20 Mg Tablet 1 Tab PO QHS 10/18/14 Reported Lisinopril 5 Mg Tablet 2.5 Mg PO DAILY 01/29/14 Reported Gabapentin 300 Mg Capsule 300 Mg PO PRN TID PRN 01/29/14 Reported can take 1 or 2 capsules Plavix (Clopidogrel Bisulfate) 75 Mg Tablet 75 Mg PO DAILY 01/29/14 Reported Digoxin 125 Mcg Tablet 125 Mcg PO DAILY 01/29/14 Reported Impression . DICATED CLINICAL PNEUMONIA CHECK CT CHEST AECOPD AGREE WITH CURRENT RX THANKS CHAD WRIGHT MD Aug 16, 2018 12:37
[2018-08-16 15:00] VITALS: BP 119/64
[2018-08-16] MEDS: RIVAROXABAN 10 MG TABLET. PO SCH (17:52)
[2018-08-16 19:00] VITALS: BP 132/85
[2018-08-16] MEDS ORDERED: SIMVASTATIN PO SCH (21:00)
[2018-08-16] MEDS ORDERED: MIRTAZAPINE PO SCH (21:00)
[2018-08-16] MEDS ORDERED: TAMSULOSIN 0.4 MG CAP.ER.24H. PO SCH (21:00)
[2018-08-16] MEDS ORDERED: traZODone 50 MG TABLET. PO SCH (21:00)
[2018-08-16] MEDS ORDERED: RIVAROXABAN 15 MG TABLET. PO SCH (21:00)
[2018-08-16] MEDS: traZODone 50 MG TABLET. PO SCH (21:10)
[2018-08-16] MEDS: MIRTAZAPINE 15 MG TABLET PO SCH (21:10)
[2018-08-16] MEDS: TAMSULOSIN 0.4 MG CAP.ER.24H. PO SCH (21:11)
[2018-08-16] MEDS: SIMVASTATIN 20 MG TABLET PO SCH (21:11)
[2018-08-16] MEDS: LACTOBACILLUS RHAMNOSUS GG 1 CAPSULE. PO SCH (21:11)
--- NOTE | 2018-08-16 22:41 | CONS ---
DATE OF CONSULTATION: 08/16/2018 REFERRING PHYSICIAN: Dr. Olivas. REASON FOR CONSULTATION: COPD exacerbation. HISTORY OF PRESENT ILLNESS: A 78-year-old male who has complaints of cough with shortness of breath for about 5 weeks' time. He had been treated for bronchitis x 2, once with doxycycline a couple of weeks ago and followed by [facility], but his symptoms have progressively worsened. He had done breathing treatments at home without improvement, so was brought in by EMS. After breathing treatment, he did not improve. Chest x-ray was done, which did not show any active infiltrate. The patient's oxygen saturation was 90% on room air, since the patient's symptoms worsened with minimal exertion. No fever. Denies any chest pain. Denies any diarrhea, nausea, vomiting. Denies any headache. Denies any sick contact. He lives at home with his daughter. PAST MEDICAL HISTORY: AFib, coronary artery disease, CHF, hypertension, syncope, hyperlipidemia, chronic bronchitis, history of dementia, diverticulosis, GERD, hemorrhoids, chronic low back pain, osteoarthritis, CKD. PAST SURGICAL HISTORY: Pacemaker placement, cataract removal, hernia repair, back surgery, history of DVT, repair of aortic aneurysm, right common iliac artery aneurysm. FAMILY HISTORY: As per HPI. SOCIAL HISTORY: No smoking, ETOH or illicit drug use. Lives with his daughter at home. No pets. No recent travel. REVIEW OF SYSTEMS: Negative except for above in HPI. ALLERGIES: IODINATED CONTRAST, ADHESIVE, LATEX. PHYSICAL EXAMINATION: VITAL SIGNS: Temperature 98.1, pulse 93, respirations 20, blood pressure 116/78, oxygen saturation 94% on room air. GENERAL: Alert, oriented x 3 male in no acute distress, lying comfortably in bed, though has bouts of cough. HEENT: Normocephalic, atraumatic. Anicteric. No thrush. Oral mucosa moist. NECK: Supple. LUNGS: Decreased breath sounds at the bases. Mild expiratory rhonchi. HEART: S1, S2. ABDOMEN: Soft, nontender, nondistended. Bowel sounds present. EXTREMITIES: No edema, no cyanosis, no clubbing. CENTRAL NERVOUS SYSTEM: Grossly nonfocal. Alert, oriented x 3. PSYCHIATRIC: Cooperative, appropriate mood and affect. LABORATORY DATA: WBC 7.4, hemoglobin is 14.3, hematocrit 42.5, platelets 252. Sodium 145, potassium 3.9, chloride 108, bicarbonate 27, BUN 14, creatinine 1.2, glucose 115, lactate 2.3, calcium 9.0, bilirubin 0.5. LFTs within normal limits. Troponin less than 0.17. BNP 351. Chest x-ray stable appearance of the chest, left-sided defibrillator is seen, linear reticular opacities in the perihilar lungs, likely chronic pulmonary fibrosis. Blood cultures done, pending at this time. IMPRESSION: 1. Lactic acidosis 2. Pulmonary infiltrates with pulmonary fibrosis 2. Acute exacerbation of chronic obstructive pulmonary disease.failed 2 outpt treatment with antibiotics 3. CAD PLAN: 1. Continue empiric Levaquin. We will add empiric Zosyn and Zyvox for now 2. Follow up blood culture results.RVP panel is not available per administration 3. CT Chest pending, 4. Continue supportive care. 5. The patient is on methylprednisolone. 6. Continue supportive care. Thank you, Dr. Olivas, for consulting Infectious Disease to participate in this patient's care. ROLO MUNGUIA MD DR: MUNIRA/tess JOB#: [id number] / [id number] MARIVEL
[2018-08-16 23:00] VITALS: BP 121/80
--- NOTE | 2018-08-17 00:43 | CONS ---
DATE OF CONSULTATION: 08/16/2018 ATTENDING PHYSICIAN: Dr. Marni Olivas. REASON FOR CONSULTATION: The patient seen in pulmonary consultation at the request of Dr. Olivas for progressive dyspnea. HISTORY OF PRESENT ILLNESS: The patient is a 78-year-old with a history of COPD, continues to smoke. He was having increasing shortness of breath, failed outpatient treatment. He has been treated twice with Z-EDWIN and prednisone. He also had nebulized treatments at home. No significant improvement. He was admitted. I was asked to see in consultation. He has a chest x-ray, which essentially revealed no consolidation. There were emphysematous changes and hyperinflation. PAST MEDICAL HISTORY: COPD, TIA, chronic back pain and previous laminectomy. He has had esophageal hernia. PAST SURGICAL HISTORY: As above. REVIEW OF SYSTEMS: CONSTITUTIONAL: No fever or chills. EYES: No change in visual acuity. HEENT: No nasal congestion, no sore throat. PULMONARY: As indicated above. CARDIOVASCULAR: No chest pain or pressure. GASTROINTESTINAL: No nausea, vomiting, or diarrhea. GENITOURINARY: No dysuria or frequency. MUSCULOSKELETAL: No localized muscle aches or joint pain. SKIN: No new skin rashes. NEUROLOGIC: No headaches, diplopia or blurred vision. ALLERGIES: IODINATED CONTRAST DYE, ADHESIVE TAPES AND LATEX. FAMILY HISTORY: Maternal side with cancer. No family history of lung cancer. SOCIAL HISTORY: He has worked at a post [employer]. He continues to smoke. He denies any excessive alcohol intake. MEDICATIONS: List from home was reviewed. CURRENT MEDICATION: List was likewise reviewed. PHYSICAL EXAMINATION: VITAL SIGNS: Stable. O2 saturation was greater than 92%. HEENT: Eyes, the sclerae were nonicteric. NECK: Jugular venous distention was not elevated. No lymphadenopathy. CHEST: Full expansion. LUNGS: Poor airway flow with expiratory wheeze, some scattered rhonchi. CARDIOVASCULAR: Regular rate and rhythm with S1, S2, no S3. ABDOMEN: Soft, nontender and nondistended. EXTREMITIES: No clubbing, cyanosis or edema. NEUROLOGIC: The patient was awake, alert, following commands. A detailed neuro exam was not performed. LABORATORY DATA: Reviewed. White count was normal. Hemoglobin and hematocrit were normal. Electrolytes were normal. Chest x-ray as indicated above. IMPRESSION: 1. Clinical pneumonia. 2. Acute exacerbation of chronic obstructive pulmonary disease. 3. Tobacco dependent. 4. Acute purulent bronchitis. PLAN: 1. We will obtain CT chest. 2. Tessalon Perles. 3. Steroids. 4. Continue antibiotics. 5. Pepcid for possible reflux. Dr. Olivas, I do appreciate the privilege in sharing in the patient's care. CHAD WRIGHT MD DR: LIANNE/tess JOB#: [id number] / [id number]
[2018-08-17] MEDS: PIPERACILLIN/TAZOBACTAM 3.375 GM in IV NORMAL SALINE 50ML 50 ML IV SCH ×5 (01:19→23:22)
[2018-08-17] MEDS: IV NORMAL SALINE 1000ML BAG 1,000 ML IV SCH (01:24)
[2018-08-17 03:00] VITALS: BP 141/85
[2018-08-17 07:00] VITALS: BP 125/89
[2018-08-17 07:35] LABS: BASO % 0 % (0-3); EOS % 0 % (0-3); HEMATOCRIT 39.8 % (39.0-53.0); HEMOGLOBIN 13.2 g/dL (13.0-17.5); LYMPH # 1.1 x10^3/uL (1.0-4.8); LYMPH % 8 % (24-48); MEAN CORPUSCULAR HEMOGLOBIN 32 pg (25-35); MEAN CORPUSCULAR HGB CONC 33 g/dL (31-37); MEAN CORPUSCULAR VOLUME 97 fL (79-100); MONO # 1.1 x10^3/uL (0.0-1.1); MONO % 9 % (0-9); NEUT # 10.4 x10^3uL (1.8-7.7); NEUT % 83 % (31-73); PLATELET COUNT 232 x10^3/uL (140-400); RED BLOOD COUNT 4.11 x10^6/uL (4.30-5.70); RED CELL DISTRIBUTION WIDTH 14.8 % (11.5-14.5); WHITE BLOOD COUNT 12.5 x10^3/uL (4.0-11.0)
[2018-08-17 07:50] LABS: CALCIUM 8.6 mg/dL (8.5-10.1); CREATININE 1.1 mg/dL (0.7-1.3); GFR 78.7; POTASSIUM 3.9 mmol/L (3.5-5.1)
[2018-08-17] MEDS: LINEZOLID 600 MG TABLET PO SCH (08:24)
[2018-08-17] MEDS: LACTOBACILLUS RHAMNOSUS GG 1 CAPSULE. PO SCH ×2 (08:24→21:26)
[2018-08-17] MEDS: CLOPIDOGREL BISULFATE 75 MG TABLET PO SCH (08:24)
[2018-08-17] MEDS: methylPREDNISolone SOD SUCC PF 40 MG/ML VIAL. IV SCH ×2 (08:25→14:19)
[2018-08-17] MEDS: oxyCODONE IR 5 MG TABLET PO SCH ×3 (08:25→21:27)
[2018-08-17] MEDS: LISINOPRIL 5 MG TABLET. PO SCH (08:26)
[2018-08-17] MEDS: DIGOXIN 125 MCG TABLET. PO SCH (08:26)
[2018-08-17] MEDS: METOPROLOL SUCC 24HR ER 25 MG TAB.ER.24H. PO SCH (08:27)
[2018-08-17] MEDS: IPRATRPIUM/ALBUTEROL 0.5/2.5MG 3 ML NEBU. NEB SCH ×4 (08:33→20:00)
--- NOTE | 2018-08-17 10:06 | PDOC ---
Infectious Disease Note Subjective: Subjective Pt says feels better t javier has bouts of coughing intermitently no f/c/n/v/abdo pain/chestpain ROS: ROS Negative except for above. Vital Signs: Vital Signs Vital Signs Date Time Temp Pulse Resp B/P (MAP) Pulse Ox O2 Delivery O2 Flow Rate FiO2 08/17/18 08:35 98 Nasal Cannula 2.0 08/17/18 08:27 89 125/89 08/17/18 08:25 20 08/17/18 07:00 97.8 97.8 Physical Exam: PHYSICAL EXAM GENERAL: Alert, oriented x 3 male in no acute distress, lying comfortably in bed, though has bouts of cough. HEENT: Normocephalic, atraumatic. Anicteric. No thrush. Oral mucosa moist. NECK: Supple. LUNGS: Decreased breath sounds at the bases. Mild expiratory rhonchi. HEART: S1, S2. ABDOMEN: Soft, nontender, nondistended. Bowel sounds present. EXTREMITIES: No edema, no cyanosis, no clubbing. CENTRAL NERVOUS SYSTEM: Grossly nonfocal. Alert, oriented x 3. PSYCHIATRIC: Cooperative, appropriate mood and affect. Medications: Inpatient Meds: Current Medications Medications (Trade) Dose Ordered Sig/[place] Start Time Stop Time Status Last Admin Dose Admin Acetaminophen (Tylenol) 650 mg PRN Q6HRS PRN 08/16/18 09:00 Albuterol Sulfate (Ventolin Neb Soln) 2.5 mg PRN Q6HRS PRN 08/16/18 09:15 Albuterol/ Ipratropium (Duoneb) 3 ml RTQID 08/16/18 12:00 08/17/18 08:33 3 ML Clopidogrel Bisulfate (Plavix) 75 mg DAILY 08/16/18 09:00 UNV Digoxin (Lanoxin) 125 mcg DAILY 08/16/18 09:00 UNV Diphenhydramine HCl (Benadryl) 50 mg PRN Q6HRS PRN 08/16/18 08:45 Gabapentin (Neurontin) 300 mg PRN TID PRN 08/16/18 09:00 Ipratropium [place] (Atrovent) 0.5 mg 1X ONCE 08/16/18 02:00 08/16/18 02:09 DC 08/16/18 02:06 0.5 MG Lactobacillus Rhamnosus (Culturelle) 1 cap BID 08/16/18 21:00 08/17/18 08:24 1 CAP Levofloxacin/ Dextrose 100 ml @ 100 mls/hr Q24H 08/16/18 10:00 08/16/18 09:49 100 MLS/HR Linezolid (Zyvox) 600 mg BID 08/16/18 11:30 08/17/18 08:24 600 MG Lisinopril (Prinivil) 2.5 mg DAILY 08/16/18 09:00 08/17/18 08:26 2.5 MG Methylprednisolone Sodium Succinate (SOLU-Medrol 40MG VIAL) 60 mg [id number] 08/16/18 09:30 08/17/18 08:25 60 MG Methylprednisolone Sodium Succinate (SOLU-Medrol 125MG VIAL) 125 mg 1X ONCE 08/16/18 02:30 08/16/18 02:31 DC 08/16/18 02:24 125 MG Metoprolol Succinate (Toprol Xl) 25 mg DAILY 08/16/18 09:00 UNV Mirtazapine (Remeron) 15 mg QHS 08/16/18 21:00 08/16/18 21:10 15 MG Non-Formulary Medication (Albuterol Sulfate (Proair Hfa Inhaler)) 1 puff PRN Q6HRS PRN 08/16/18 08:45 UNV Non-Formulary Medication (Gabapentin ) 300 mg PRN TID PRN 08/16/18 09:00 UNV Non-Formulary Medication (Lisinopril ) 2.5 mg DAILY 08/16/18 09:00 UNV Non-Formulary Medication (Mirtazapine (Remeron)) 1 tab QHS 08/16/18 21:00 UNV Non-Formulary Medication (Simvastatin ) 1 tab QHS 08/16/18 21:00 UNV Oxycodone HCl (Roxicodone) 20 mg TID 08/16/18 09:30 08/17/18 08:25 20 MG Piperacillin Sod/ Tazobactam Sod 3.375 gm/Sodium Chloride 50 ml @ 100 mls/hr Q6HRS 08/16/18 12:00 08/17/18 05:47 100 MLS/HR Rivaroxaban (Xarelto) 20 mg HS 08/16/18 21:00 UNV Simvastatin (Zocor) 20 mg HS 08/16/18 21:00 08/16/18 21:11 20 MG Sodium Chloride 1,000 ml @ 100 mls/hr Q10H 08/16/18 04:18 08/17/18 04:17 DC 08/17/18 01:24 100 MLS/HR Tamsulosin HCl (Flomax) 0.4 mg HS 08/16/18 21:00 UNV Trazodone HCl (Desyrel) 100 mg HS 08/16/18 21:00 UNV Labs: Lab Laboratory Tests Test 08/16/18 11:08 08/16/18 16:57 08/16/18 21:05 08/17/18 06:10 Glucose (Fingerstick) 186 mg/dL (70-99) 137 mg/dL (70-99) 161 mg/dL (70-99) White Blood Count 12.5 x10^3/uL (4.0-11.0) Red Blood Count 4.11 x10^6/uL (4.30-5.70) Hemoglobin 13.2 g/dL (13.0-17.5) Hematocrit 39.8 % (39.0-53.0) Mean Corpuscular Volume 97 fL (79-100) Mean Corpuscular Hemoglobin 32 pg (25-35) Mean Corpuscular Hemoglobin Concent 33 g/dL (31-37) Red Cell Distribution Width 14.8 % (11.5-14.5) Platelet Count 232 x10^3/uL (140-400) Neutrophils (%) (Auto) 83 % (31-73) Lymphocytes (%) (Auto) 8 % (24-48) Monocytes (%) (Auto) 9 % (0-9) Eosinophils (%) (Auto) 0 % (0-3) Basophils (%) (Auto) 0 % (0-3) Neutrophils # (Auto) 10.4 x10^3uL (1.8-7.7) Lymphocytes # (Auto) 1.1 x10^3/uL (1.0-4.8) Monocytes # (Auto) 1.1 x10^3/uL (0.0-1.1) Eosinophils # (Auto) 0.0 x10^3/uL (0.0-0.7) Basophils # (Auto) 0.0 x10^3/uL (0.0-0.2) Sodium Level 139 mmol/L (136-145) Potassium Level 3.9 mmol/L (3.5-5.1) Chloride Level 103 mmol/L (98-107) Carbon Dioxide Level 27 mmol/L (21-32) Anion Gap 9 (6-14) Blood Urea Nitrogen 15 mg/dL (8-26) Creatinine 1.1 mg/dL (0.7-1.3) Estimated GFR (Cockcroft-Gault) 78.7 Glucose Level 71 mg/dL (70-99) Calcium Level 8.6 mg/dL (8.5-10.1) Test 08/17/18 07:11 Glucose (Fingerstick) 106 mg/dL (70-99) Micro BC neg CT CHEST IMPRESSION: 1. There is again bronchiectasis with lower lobe predominance, associated bronchial wall thickening suggestive of bronchitis. There is also mild endobronchial density in the left lower lobe could be due to mucus plugging although underlying endobronchial mass not excluded by this exam. 2. There is emphysema. There is no lobar infiltrate. 3. There is again dilatation ascending thoracic aorta about 4.5 cm. 4. There is again dilatation of esophagus with air-fluid level. 5. There is coronary calcification. 6. There is indeterminate exophytic lesion of the right kidney although similar in size compared with 2015 exam. There is again adjacent right renal calculus. 7. There is stable nonspecific mediastinal lymphadenopathy. Objective: Assessment: 1. Lactic acidosis 2. Pulmonary infiltrates with pulmonary fibrosis 2. Acute exacerbation of chronic obstructive pulmonary disease.failed 2 outpt treatment with antibiotics 3. CAD 4. AAA 5. Bronchiectasis Plan: Plan of Care Continue Zosyn on steroids DC Levaquin and zyvox Follow up blood culture results. Continue supportive care. ROLO MUNGUIA MD Aug 17, 2018 10:06
[2018-08-17 11:00] VITALS: BP 132/80
--- NOTE | 2018-08-17 11:11 | PDOC ---
IM PROGRESS NOTES- Subjective Subjective Patient continues to have a lot of coughing. He does bring up a lot of mucus. 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 He is feeling somewhat better today. He denies any heartburn or difficulty swallowing but does have some coughing with the hot liquids. Objective Vitals Vital Signs Date Time Temp Pulse Resp B/P (MAP) Pulse Ox O2 Delivery O2 Flow Rate FiO2 08/17/18 11:00 97.7 90 20 132/80 (97) 97 Nasal Cannula 2.0 97.7 Input & Output Intake and Output 08/17/18 07:00 Intake Total 2720 ml Output Total 900 ml Balance 1820 ml Intake Oral 1420 ml IV Total 1300 ml Output Urine Total 900 ml Physical Exam Physical Exam General appearance - alert,well appearing, and in no distress and oriented to person, place, and time Mental Status - alert, oriented to person, place, and time, affect appropriate to mood Head - normal Chest -decreased breath sounds at bases bilaterally Heart - S1 and S2 normal Abdomen - soft, nontender, nondistended, no masses or organomegaly Neurological - alert and oriented Musculoskeletal - no muscular tenderness noted Extremities - no pedal edema Skin - warm and dry Labs Laboratory Tests Test 08/16/18 01:50 08/16/18 11:08 08/16/18 16:57 08/16/18 21:05 White Blood Count 7.4 x10^3/uL (4.0-11.0) Red Blood Count 4.41 x10^6/uL (4.30-5.70) Hemoglobin 14.3 g/dL (13.0-17.5) Hematocrit 42.5 % (39.0-53.0) Mean Corpuscular Volume 97 fL (79-100) Mean Corpuscular Hemoglobin 32 pg (25-35) Mean Corpuscular Hemoglobin Concent 34 g/dL (31-37) Red Cell Distribution Width 14.9 % (11.5-14.5) Platelet Count 252 x10^3/uL (140-400) Neutrophils (%) (Auto) 40 % (31-73) Lymphocytes (%) (Auto) 31 % (24-48) Monocytes (%) (Auto) 11 % (0-9) Eosinophils (%) (Auto) 19 % (0-3) Basophils (%) (Auto) 0 % (0-3) Neutrophils # (Auto) 2.9 x10^3uL (1.8-7.7) Lymphocytes # (Auto) 2.3 x10^3/uL (1.0-4.8) Monocytes # (Auto) 0.8 x10^3/uL (0.0-1.1) Eosinophils # (Auto) 1.4 x10^3/uL (0.0-0.7) Basophils # (Auto) 0.0 x10^3/uL (0.0-0.2) Segmented Neutrophils % 38 % (35-66) Band Neutrophils % 1 % (0-9) Lymphocytes % 40 % (24-48) Atypical Lymphocytes % (Manual) 2 % (0-0) Monocytes % 4 % (0-10) Eosinophils % 12 % (0-5) Basophils % 3 % (0-3) Platelet Estimate Adequate (ADEQUATE) Sodium Level 145 mmol/L (136-145) Potassium Level 3.9 mmol/L (3.5-5.1) Chloride Level 108 mmol/L (98-107) Carbon Dioxide Level 27 mmol/L (21-32) Anion Gap 10 (6-14) Blood Urea Nitrogen 14 mg/dL (8-26) Creatinine 1.2 mg/dL (0.7-1.3) Estimated GFR (Cockcroft-Gault) 71.2 BUN/Creatinine Ratio 12 (6-20) Glucose Level 115 mg/dL (70-99) Lactic Acid Level 2.3 mmol/L (0.4-2.0) Calcium Level 9.0 mg/dL (8.5-10.1) Total Bilirubin 0.5 mg/dL (0.2-1.0) Aspartate Amino Transf (AST/SGOT) 17 U/L (15-37) Alanine Aminotransferase (ALT/SGPT) 16 U/L (16-63) Alkaline Phosphatase 93 U/L (46-116) Troponin I Quantitative < 0.017 ng/mL (0.000-0.055) [id number]-Mmt-Z-Type Natriuretic Peptide 351 pg/mL (0-449) Total Protein 6.8 g/dL (6.4-8.2) Albumin 3.6 g/dL (3.4-5.0) Albumin/Globulin Ratio 1.1 (1.0-1.7) Glucose (Fingerstick) 186 mg/dL (70-99) 137 mg/dL (70-99) 161 mg/dL (70-99) Test 08/17/18 06:10 08/17/18 07:11 White Blood Count 12.5 x10^3/uL (4.0-11.0) Red Blood Count 4.11 x10^6/uL (4.30-5.70) Hemoglobin 13.2 g/dL (13.0-17.5) Hematocrit 39.8 % (39.0-53.0) Mean Corpuscular Volume 97 fL (79-100) Mean Corpuscular Hemoglobin 32 pg (25-35) Mean Corpuscular Hemoglobin Concent 33 g/dL (31-37) Red Cell Distribution Width 14.8 % (11.5-14.5) Platelet Count 232 x10^3/uL (140-400) Neutrophils (%) (Auto) 83 % (31-73) Lymphocytes (%) (Auto) 8 % (24-48) Monocytes (%) (Auto) 9 % (0-9) Eosinophils (%) (Auto) 0 % (0-3) Basophils (%) (Auto) 0 % (0-3) Neutrophils # (Auto) 10.4 x10^3uL (1.8-7.7) Lymphocytes # (Auto) 1.1 x10^3/uL (1.0-4.8) Monocytes # (Auto) 1.1 x10^3/uL (0.0-1.1) Eosinophils # (Auto) 0.0 x10^3/uL (0.0-0.7) Basophils # (Auto) 0.0 x10^3/uL (0.0-0.2) Sodium Level 139 mmol/L (136-145) Potassium Level 3.9 mmol/L (3.5-5.1) Chloride Level 103 mmol/L (98-107) Carbon Dioxide Level 27 mmol/L (21-32) Anion Gap 9 (6-14) Blood Urea Nitrogen 15 mg/dL (8-26) Creatinine 1.1 mg/dL (0.7-1.3) Estimated GFR (Cockcroft-Gault) 78.7 Glucose Level 71 mg/dL (70-99) Calcium Level 8.6 mg/dL (8.5-10.1) Glucose (Fingerstick) 106 mg/dL (70-99) Laboratory Tests Test 08/16/18 16:57 08/16/18 21:05 08/17/18 06:10 08/17/18 07:11 Glucose (Fingerstick) 137 mg/dL (70-99) 161 mg/dL (70-99) 106 mg/dL (70-99) White Blood Count 12.5 x10^3/uL (4.0-11.0) Red Blood Count 4.11 x10^6/uL (4.30-5.70) Hemoglobin 13.2 g/dL (13.0-17.5) Hematocrit 39.8 % (39.0-53.0) Mean Corpuscular Volume 97 fL (79-100) Mean Corpuscular Hemoglobin 32 pg (25-35) Mean Corpuscular Hemoglobin Concent 33 g/dL (31-37) Red Cell Distribution Width 14.8 % (11.5-14.5) Platelet Count 232 x10^3/uL (140-400) Neutrophils (%) (Auto) 83 % (31-73) Lymphocytes (%) (Auto) 8 % (24-48) Monocytes (%) (Auto) 9 % (0-9) Eosinophils (%) (Auto) 0 % (0-3) Basophils (%) (Auto) 0 % (0-3) Neutrophils # (Auto) 10.4 x10^3uL (1.8-7.7) Lymphocytes # (Auto) 1.1 x10^3/uL (1.0-4.8) Monocytes # (Auto) 1.1 x10^3/uL (0.0-1.1) Eosinophils # (Auto) 0.0 x10^3/uL (0.0-0.7) Basophils # (Auto) 0.0 x10^3/uL (0.0-0.2) Sodium Level 139 mmol/L (136-145) Potassium Level 3.9 mmol/L (3.5-5.1) Chloride Level 103 mmol/L (98-107) Carbon Dioxide Level 27 mmol/L (21-32) Anion Gap 9 (6-14) Blood Urea Nitrogen 15 mg/dL (8-26) Creatinine 1.1 mg/dL (0.7-1.3) Estimated GFR (Cockcroft-Gault) 78.7 Glucose Level 71 mg/dL (70-99) Calcium Level 8.6 mg/dL (8.5-10.1) Meds Current Medications Albuterol/ Ipratropium (Duoneb) 3 ml RTQID NEB Last administered on 08/17/18at 08:33; Start 08/16/18 at 12:00 Lactobacillus Rhamnosus (Culturelle) 1 cap BID PO Last administered on at 08:24; Start 08/16/18 at 21:00 Linezolid (Zyvox) 600 mg BID PO Last administered on 08/17/18at 08:24; Start 08/16/18 at 11:30; Stop 08/17/18 at 10:07; Status DC Mirtazapine (Remeron) 15 mg QHS PO Last administered on 08/16/18at 21:10; Start 08/16/18 at 21:00 Non-Formulary Medication (Mirtazapine (Remeron)) 1 tab QHS PO ; Start 08/16/18 at 21:00; Status UNV Non-Formulary Medication (Simvastatin ) 1 tab QHS PO ; Start 08/16/18 at 21:00 ; Status UNV Piperacillin Sod/ Tazobactam Sod 3.375 gm/Sodium Chloride 50 ml @ 100 mls/hr Q6HRS IV Last administered on 08/17/18at 05:47; Start 08/16/18 at 12:00 Rivaroxaban (Xarelto) 20 mg DAILYWSUP PO Last administered on 08/16/18at 17:52 ; Start 08/16/18 at 17:00 Rivaroxaban (Xarelto) 20 mg HS PO ; Start 08/16/18 at 21:00; Status UNV Simvastatin (Zocor) 20 mg HS PO Last administered on 08/16/18at 21:11; Start 08/16/18 at 21:00 Tamsulosin HCl (Flomax) 0.4 mg HS PO Last administered on 08/16/18at 21:11; Start 08/16/18 at 21:00 Tamsulosin HCl (Flomax) 0.4 mg HS PO ; Start 08/16/18 at 21:00; Status UNV Trazodone HCl (Desyrel) 100 mg HS PO Last administered on 08/16/18at 21:10; Start 08/16/18 at 21:00 Trazodone HCl (Desyrel) 100 mg HS PO ; Start 08/16/18 at 21:00; Status UNV Assessment Assessment 1. Sepsis. 2. Pneumonia. 3. Acute exacerbation of chronic obstructive pulmonary disease. 4. Coronary artery disease. 5. Peripheral neuropathy. 6. History of Jhaveri's palsy. 7. Chronic low back pain, with back surgeries x 2. 8. Chronic diastolic congestive heart failure with ejection fraction of 55% and AICD. 9. Hypertensive crisis. 10. Hyperlipidemia. 11. History of repair of the aortic aneurysm as well as right common iliac artery aneurysm. 12. History of deep venous thrombosis. 13. Osteoarthritis. 14. Diverticulosis. PLAN: Continue Xarelto for atrial fibrillation that is chronic. I will start him on IV Levaquin. Consult Dr. Resendiz for Pulmonary evaluation and management and Dr. Rushing for Infectious Disease evaluation and management. Continue breathing treatment. The patient has been given IV fluids. I have started him on IV steroids. We will monitor blood sugars. For details, please review the orders. Pneumonia - clinically improving however he continues to have a lot of coughing. CT chest showed bronchiectasis. Possible dysphagia- patient has an abnormal CT with the fluid level in the esophagus. Patient states that he had esophageal surgery previously. I'll consult Dr. Banks for GI evaluation and management. Plan Plan For more details regarding further plans, please refer to the orders. RENE MOON MD Aug 17, 2018 11:11
--- NOTE | 2018-08-17 11:58 | PDOC2 ---
GI CONSULT Reason For Consult: Abnormal esophagus on CT chest HPI: HPI: 78 y/o male admitted w/ respiratory issues. Chest CT noted dilatation of esophagus with air-fluid level and we were asked to see for same. He reports a long h/o occasional dysphagia - symptoms are stable and unchanged. "Hot coffee" gets stuck in his throat sometimes, but he does not have difficulty with other liquids. He has to chew "dry" food well and sometimes that gets stuck in his throat but then passes if he drinks water. Denies nausea. Sometimes when he starts coughing he can't stop - this leads to vomiting. Has occasional reflux, untreated. Denies abd pain but also mentions he doesn't have a lot of feeling from the mid-abdomen down since previous back surgeries. He can't tell me if he has diarrhea or constipation - he does not have a bowel movement daily but is sure to always sit down on the toilet when he urinates because he's never sure what might come out. Denies bleeding. Has steadily lost weight since back surgeries. Per previous GI H&P, has h/o adenomatous polyp in 2009. Additionally mentions past dilation of esophageal stricture (no other details). The patient does not recall previous EGD. He does mention a few hernia repairs - bilateral inguinal and one that he calls "hiatal hernia." Also, at some point food would get caught in the side of his throat and then he would feel short of breath when laying flat - for this he had some sort of surgery where "they went in through my back and had to move my lung around" - but relates all this to his esophagus. Other notes mention esophageal hernia. Cannot tell me when or where this was performed. Colonoscopy in 03/2015 (for rectal bleeding) showed hyperplastic rectal polyp, diverticulosis, and hemorrhoids. He denies GB, liver , and pancreas history but says "I don't know, look at my records." PMH: PMH: A Fib, CHF, HTN, AICD, HLD, DVT, dementia, ?GERD, diverticulosis, peripheral neuropathy, Jhaveri's Palsy, bilateral inguinal hernia repairs, OA, CKD, AA and right common iliac artery aneurysm repairs, back surgeries FH: Family History: No pertinent hx Social History: ALCOHOL: none Drugs: None ROS: GEN: Denies fevers, chills, sweats HEENT: Denies blurred vision, sore throat CV: Denies chest pain RESP: Denies shortness of air, cough GI: Per HPI : Denies hematuria, dysuria ENDO: Denies weight changes NEURO: Denies confusion, dizziness MSK: Denies weakness, joint pain/swelling SKIN: Denies jaundice, pruritus Vitals: Vitals: Vital Signs Date Time Temp Pulse Resp B/P (MAP) Pulse Ox O2 Delivery O2 Flow Rate FiO2 08/17/18 11:07 97 Nasal Cannula 2.0 08/17/18 11:00 97.7 90 20 132/80 (97) 97.7 Labs: Labs: Laboratory Tests Test 08/16/18 16:57 08/16/18 21:05 08/17/18 06:10 08/17/18 07:11 Glucose (Fingerstick) 137 mg/dL (70-99) 161 mg/dL (70-99) 106 mg/dL (70-99) White Blood Count 12.5 x10^3/uL (4.0-11.0) Red Blood Count 4.11 x10^6/uL (4.30-5.70) Hemoglobin 13.2 g/dL (13.0-17.5) Hematocrit 39.8 % (39.0-53.0) Mean Corpuscular Volume 97 fL (79-100) Mean Corpuscular Hemoglobin 32 pg (25-35) Mean Corpuscular Hemoglobin Concent 33 g/dL (31-37) Red Cell Distribution Width 14.8 % (11.5-14.5) Platelet Count 232 x10^3/uL (140-400) Neutrophils (%) (Auto) 83 % (31-73) Lymphocytes (%) (Auto) 8 % (24-48) Monocytes (%) (Auto) 9 % (0-9) Eosinophils (%) (Auto) 0 % (0-3) Basophils (%) (Auto) 0 % (0-3) Neutrophils # (Auto) 10.4 x10^3uL (1.8-7.7) Lymphocytes # (Auto) 1.1 x10^3/uL (1.0-4.8) Monocytes # (Auto) 1.1 x10^3/uL (0.0-1.1) Eosinophils # (Auto) 0.0 x10^3/uL (0.0-0.7) Basophils # (Auto) 0.0 x10^3/uL (0.0-0.2) Sodium Level 139 mmol/L (136-145) Potassium Level 3.9 mmol/L (3.5-5.1) Chloride Level 103 mmol/L (98-107) Carbon Dioxide Level 27 mmol/L (21-32) Anion Gap 9 (6-14) Blood Urea Nitrogen 15 mg/dL (8-26) Creatinine 1.1 mg/dL (0.7-1.3) Estimated GFR (Cockcroft-Gault) 78.7 Glucose Level 71 mg/dL (70-99) Calcium Level 8.6 mg/dL (8.5-10.1) Allergies: Coded Allergies: Iodinated Contrast- Oral and IV Dye (Verified Allergy, Severe, anaphalaxis , short of air, 06/06/15) adhesive (Verified Allergy, Severe, PAINFUL SKIN IRRITATION , 06/06/15) latex (Verified Allergy, Intermediate, Hives, 06/06/15) Medications: Current Medications Medications (Trade) Dose Ordered Sig/[place] Route PRN Reason Start Time Stop Time Status Last Admin Dose Admin Rivaroxaban (Xarelto) 20 mg DAILYWSUP PO 08/16/18 17:00 08/16/18 17:52 Tamsulosin HCl (Flomax) 0.4 mg HS PO 08/16/18 21:00 08/16/18 21:11 Trazodone HCl (Desyrel) 100 mg HS PO 08/16/18 21:00 08/16/18 21:10 Mirtazapine (Remeron) 15 mg QHS PO 08/16/18 21:00 08/16/18 21:10 Simvastatin (Zocor) 20 mg HS PO 08/16/18 21:00 08/16/18 21:11 Albuterol/ Ipratropium (Duoneb) 3 ml RTQID NEB 08/16/18 12:00 08/17/18 11:07 Piperacillin Sod/ Tazobactam Sod 3.375 gm/Sodium Chloride 50 ml @ 100 mls/hr Q6HRS IV 08/16/18 12:00 08/17/18 05:47 Lactobacillus Rhamnosus (Culturelle) 1 cap BID PO 08/16/18 21:00 08/17/18 08:24 Imaging: Imaging: CXR Findings: The lungs are hyperinflated. The heart and pulmonary vessels appear normal. Left -sided defibrillator is again seen. Linear reticular opacities in the perihilar lungs is likely chronic pulmonary fibrosis. Impression: Stable appearance of the chest. Chest CT IMPRESSION: 1. There is again bronchiectasis with lower lobe predominance, associated bronchial wall thickening suggestive of bronchitis. There is also mild endobronchial density in the left lower lobe could be due to mucus plugging although underlying endobronchial mass not excluded by this exam. 2. There is emphysema. There is no lobar infiltrate. 3. There is again dilatation ascending thoracic aorta about 4.5 cm. 4. There is again dilatation of esophagus with air-fluid level. 5. There is coronary calcification. 6. There is indeterminate exophytic lesion of the right kidney although similar in size compared with 2015 exam. There is again adjacent right renal calculus. 7. There is stable nonspecific mediastinal lymphadenopathy. PE: GEN: NAD HEENT: Atraumatic, PERRL LUNGS: diminished, exp wheezing, dry cough, NC HEART: RRR ABD: NABS, S/ND/NT, supraumbilical vertical scar EXTREMITY: No edema SKIN: No rashes, no jaundice NEURO/PSYCH: A & O 3 - history challenging A/P: A/P: Resp failure/COPD exacerbation - on CT: bronchiectasis, bronchitis, ?mucus plug Abnormal CT chest - dilatation of esophagus w/ air-fluid level Occasional dysphagia - dry foods, hot liquids - chronic/stable - ?previous EGD w / dilation, ?previous esophageal surgery Occasional reflux - untreated CRC screen, h/o adenomatous polyps - UTD Diverticulosis -- Difficult to ascertain but seems has some sort of esophageal history. Add PPI for reflux. Will review w/ Dr. Banks re: need for further workup. HONEY AUGUSTE Aug 17, 2018 11:58
[2018-08-17] MEDS: PANTOPRAZOLE 40 MG TABLET.DR. PO SCH (14:20)
--- NOTE | 2018-08-17 14:42 | PDOC ---
PULMONARY PROGRESS NOTES Subjective cough with tawanda sputum Vitals Vital Signs Date Time Temp Pulse Resp B/P (MAP) Pulse Ox O2 Delivery O2 Flow Rate FiO2 08/17/18 14:20 18 97 Nasal Cannula 2.0 08/17/18 11:00 97.7 90 132/80 (97) 97.7 General: Alert, No acute distress Lungs: Crackles (bases) Cardiovascular: S1 Abdomen: Soft Neuro Exam: Alert Extremities: No Edema Labs Laboratory Tests Test 08/16/18 01:50 08/16/18 11:08 08/16/18 16:57 08/16/18 21:05 White Blood Count 7.4 x10^3/uL (4.0-11.0) Red Blood Count 4.41 x10^6/uL (4.30-5.70) Hemoglobin 14.3 g/dL (13.0-17.5) Hematocrit 42.5 % (39.0-53.0) Mean Corpuscular Volume 97 fL (79-100) Mean Corpuscular Hemoglobin 32 pg (25-35) Mean Corpuscular Hemoglobin Concent 34 g/dL (31-37) Red Cell Distribution Width 14.9 % (11.5-14.5) Platelet Count 252 x10^3/uL (140-400) Neutrophils (%) (Auto) 40 % (31-73) Lymphocytes (%) (Auto) 31 % (24-48) Monocytes (%) (Auto) 11 % (0-9) Eosinophils (%) (Auto) 19 % (0-3) Basophils (%) (Auto) 0 % (0-3) Neutrophils # (Auto) 2.9 x10^3uL (1.8-7.7) Lymphocytes # (Auto) 2.3 x10^3/uL (1.0-4.8) Monocytes # (Auto) 0.8 x10^3/uL (0.0-1.1) Eosinophils # (Auto) 1.4 x10^3/uL (0.0-0.7) Basophils # (Auto) 0.0 x10^3/uL (0.0-0.2) Segmented Neutrophils % 38 % (35-66) Band Neutrophils % 1 % (0-9) Lymphocytes % 40 % (24-48) Atypical Lymphocytes % (Manual) 2 % (0-0) Monocytes % 4 % (0-10) Eosinophils % 12 % (0-5) Basophils % 3 % (0-3) Platelet Estimate Adequate (ADEQUATE) Sodium Level 145 mmol/L (136-145) Potassium Level 3.9 mmol/L (3.5-5.1) Chloride Level 108 mmol/L (98-107) Carbon Dioxide Level 27 mmol/L (21-32) Anion Gap 10 (6-14) Blood Urea Nitrogen 14 mg/dL (8-26) Creatinine 1.2 mg/dL (0.7-1.3) Estimated GFR (Cockcroft-Gault) 71.2 BUN/Creatinine Ratio 12 (6-20) Glucose Level 115 mg/dL (70-99) Lactic Acid Level 2.3 mmol/L (0.4-2.0) Calcium Level 9.0 mg/dL (8.5-10.1) Total Bilirubin 0.5 mg/dL (0.2-1.0) Aspartate Amino Transf (AST/SGOT) 17 U/L (15-37) Alanine Aminotransferase (ALT/SGPT) 16 U/L (16-63) Alkaline Phosphatase 93 U/L (46-116) Troponin I Quantitative < 0.017 ng/mL (0.000-0.055) IZ-Fho-[id number]-Type Natriuretic Peptide 351 pg/mL (0-449) Total Protein 6.8 g/dL (6.4-8.2) Albumin 3.6 g/dL (3.4-5.0) Albumin/Globulin Ratio 1.1 (1.0-1.7) Glucose (Fingerstick) 186 mg/dL (70-99) 137 mg/dL (70-99) 161 mg/dL (70-99) Test 08/17/18 06:10 08/17/18 07:11 08/17/18 11:16 White Blood Count 12.5 x10^3/uL (4.0-11.0) Red Blood Count 4.11 x10^6/uL (4.30-5.70) Hemoglobin 13.2 g/dL (13.0-17.5) Hematocrit 39.8 % (39.0-53.0) Mean Corpuscular Volume 97 fL (79-100) Mean Corpuscular Hemoglobin 32 pg (25-35) Mean Corpuscular Hemoglobin Concent 33 g/dL (31-37) Red Cell Distribution Width 14.8 % (11.5-14.5) Platelet Count 232 x10^3/uL (140-400) Neutrophils (%) (Auto) 83 % (31-73) Lymphocytes (%) (Auto) 8 % (24-48) Monocytes (%) (Auto) 9 % (0-9) Eosinophils (%) (Auto) 0 % (0-3) Basophils (%) (Auto) 0 % (0-3) Neutrophils # (Auto) 10.4 x10^3uL (1.8-7.7) Lymphocytes # (Auto) 1.1 x10^3/uL (1.0-4.8) Monocytes # (Auto) 1.1 x10^3/uL (0.0-1.1) Eosinophils # (Auto) 0.0 x10^3/uL (0.0-0.7) Basophils # (Auto) 0.0 x10^3/uL (0.0-0.2) Sodium Level 139 mmol/L (136-145) Potassium Level 3.9 mmol/L (3.5-5.1) Chloride Level 103 mmol/L (98-107) Carbon Dioxide Level 27 mmol/L (21-32) Anion Gap 9 (6-14) Blood Urea Nitrogen 15 mg/dL (8-26) Creatinine 1.1 mg/dL (0.7-1.3) Estimated GFR (Cockcroft-Gault) 78.7 Glucose Level 71 mg/dL (70-99) Calcium Level 8.6 mg/dL (8.5-10.1) Glucose (Fingerstick) 106 mg/dL (70-99) 114 mg/dL (70-99) Laboratory Tests Test 08/16/18 16:57 08/16/18 21:05 08/17/18 06:10 08/17/18 07:11 Glucose (Fingerstick) 137 mg/dL (70-99) 161 mg/dL (70-99) 106 mg/dL (70-99) White Blood Count 12.5 x10^3/uL (4.0-11.0) Red Blood Count 4.11 x10^6/uL (4.30-5.70) Hemoglobin 13.2 g/dL (13.0-17.5) Hematocrit 39.8 % (39.0-53.0) Mean Corpuscular Volume 97 fL (79-100) Mean Corpuscular Hemoglobin 32 pg (25-35) Mean Corpuscular Hemoglobin Concent 33 g/dL (31-37) Red Cell Distribution Width 14.8 % (11.5-14.5) Platelet Count 232 x10^3/uL (140-400) Neutrophils (%) (Auto) 83 % (31-73) Lymphocytes (%) (Auto) 8 % (24-48) Monocytes (%) (Auto) 9 % (0-9) Eosinophils (%) (Auto) 0 % (0-3) Basophils (%) (Auto) 0 % (0-3) Neutrophils # (Auto) 10.4 x10^3uL (1.8-7.7) Lymphocytes # (Auto) 1.1 x10^3/uL (1.0-4.8) Monocytes # (Auto) 1.1 x10^3/uL (0.0-1.1) Eosinophils # (Auto) 0.0 x10^3/uL (0.0-0.7) Basophils # (Auto) 0.0 x10^3/uL (0.0-0.2) Sodium Level 139 mmol/L (136-145) Potassium Level 3.9 mmol/L (3.5-5.1) Chloride Level 103 mmol/L (98-107) Carbon Dioxide Level 27 mmol/L (21-32) Anion Gap 9 (6-14) Blood Urea Nitrogen 15 mg/dL (8-26) Creatinine 1.1 mg/dL (0.7-1.3) Estimated GFR (Cockcroft-Gault) 78.7 Glucose Level 71 mg/dL (70-99) Calcium Level 8.6 mg/dL (8.5-10.1) Test 08/17/18 11:16 Glucose (Fingerstick) 114 mg/dL (70-99) Medications Active Scripts Medications Dose Route/Sig Max Daily Dose Days Date Category Dose Instructions Duoneb 0.5-3(2.5) Mg/3 Ml (Albuterol/Ipratropium) 3 Ml Ampul.neb 3 Ml NEB QIDPRN PRN 08/16/18 Reported Remeron (Mirtazapine) 15 Mg Tablet 1 Tab PO QHS 08/16/18 Reported Proair Hfa Inhaler (Albuterol Sulfate) 8.5 Gm Hfa.aer.ad 1 Puff INH PRN Q6HRS PRN 07/01/18 Rx Benadryl (Diphenhydramine Hcl) 25 Mg Capsule 2 Cap PO Q6HRS PRN 02/24/17 Rx Tamsulosin Hcl 0.4 Mg Cap.er.24h 1 Cap PO HS 02/14/17 Reported Metoprolol Succinate ( Xl ) (Metoprolol Succinate) 25 Mg Tab.er.24h 1 Tab PO DAILY 02/14/17 Reported Trazodone Hcl 50 Mg Tablet 2 Tab PO HS 03/26/15 Reported 100 mg @ HS Xarelto (Rivaroxaban) 15 Mg Tablet 20 Mg PO HS 03/26/15 Reported Simvastatin 20 Mg Tablet 1 Tab PO QHS 10/18/14 Reported Lisinopril 5 Mg Tablet 2.5 Mg PO DAILY 01/29/14 Reported Gabapentin 300 Mg Capsule 300 Mg PO PRN TID PRN 01/29/14 Reported can take 1 or 2 capsules Plavix (Clopidogrel Bisulfate) 75 Mg Tablet 75 Mg PO DAILY 01/29/14 Reported Digoxin 125 Mcg Tablet 125 Mcg PO DAILY 01/29/14 Reported Impression . 1. Clinical pneumonia. 2. Acute exacerbation of chronic obstructive pulmonary disease. 3. Tobacco dependent. 4. Acute purulent bronchitis. Plan . 1. CT chest reviewed. bronchiectasis/ LLL mucous plug 2. Tessalon Perles. 3. Steroids. 4. Continue antibiotics. 5. Pepcid for possible reflux. 6. renal lesion on ct , similar in 2015. will leave up to DR MOON for any w/u VERONICA GASTELUM MD Aug 17, 2018 14:42
[2018-08-17 15:00] VITALS: BP 139/92
[2018-08-17] MEDS: RIVAROXABAN 10 MG TABLET. PO SCH (17:00)
[2018-08-17 19:00] VITALS: BP 133/82
[2018-08-17] MEDS: TAMSULOSIN 0.4 MG CAP.ER.24H. PO SCH (21:26)
[2018-08-17] MEDS: MIRTAZAPINE 15 MG TABLET PO SCH (21:26)
[2018-08-17] MEDS: traZODone 50 MG TABLET. PO SCH (21:26)
[2018-08-17] MEDS: SIMVASTATIN 20 MG TABLET PO SCH (21:26)
[2018-08-17 23:00] VITALS: BP 117/77
[2018-08-18] VITALS (7 sets, daily range): BP systolic 112–179; BP diastolic 50–107
[2018-08-18] MEDS: PIPERACILLIN/TAZOBACTAM 3.375 GM in IV NORMAL SALINE 50ML 50 ML IV SCH ×3 (05:53→17:49)
[2018-08-18] MEDS: IPRATRPIUM/ALBUTEROL 0.5/2.5MG 3 ML NEBU. NEB SCH ×4 (07:03→19:59)
--- NOTE | 2018-08-18 09:02 | RAD ---
Renal ultrasound, 08/18/2018: HISTORY: Renal lesion The right kidney measures 12.5 cm in length while the left kidney measures 11.0 cm. 2 simple cysts are evident in the right kidney, the largest of which measures 3.4 cm. There is a 1.6 cm cyst in the left kidney. The renal parenchymal echogenicity is otherwise within normal limits. There is no evidence of hydronephrosis. The urinary bladder shows no intrinsic abnormality. The prostate gland is moderately enlarged. IMPRESSION: 1. Bilateral renal cysts. 2. The kidneys are otherwise unremarkable. 3. Moderate nonspecific prostatic enlargement. Electronically signed by: Reynaldo Drake MD (08/18/2018 8:59 AM) [facility]
[2018-08-18] MEDS: METOPROLOL SUCC 24HR ER 25 MG TAB.ER.24H. PO SCH (09:15)
[2018-08-18] MEDS: LISINOPRIL 5 MG TABLET. PO SCH (09:16)
[2018-08-18] MEDS: PANTOPRAZOLE 40 MG TABLET.DR. PO SCH (09:16)
[2018-08-18] MEDS: LACTOBACILLUS RHAMNOSUS GG 1 CAPSULE. PO SCH ×2 (09:18→23:36)
[2018-08-18] MEDS: methylPREDNISolone SOD SUCC PF 40 MG/ML VIAL. IV SCH (09:18)
[2018-08-18] MEDS: DIGOXIN 125 MCG TABLET. PO SCH (09:18)
[2018-08-18] MEDS: CLOPIDOGREL BISULFATE 75 MG TABLET PO SCH (09:19)
--- NOTE | 2018-08-18 09:24 | PDOC ---
PULMONARY PROGRESS NOTES Subjective cough with tawanda sputum Vitals Vital Signs Date Time Temp Pulse Resp B/P (MAP) Pulse Ox O2 Delivery O2 Flow Rate FiO2 08/18/18 09:18 74 132/92 08/18/18 07:04 Room Air 08/18/18 07:00 98.2 18 92 98.2 08/18/18 03:00 2.0 General: Alert, No acute distress Lungs: Crackles (bases) Cardiovascular: S1 Abdomen: Soft Neuro Exam: Alert Extremities: No Edema Labs Laboratory Tests Test 08/16/18 11:08 08/16/18 16:57 08/16/18 21:05 08/17/18 06:10 Glucose (Fingerstick) 186 mg/dL (70-99) 137 mg/dL (70-99) 161 mg/dL (70-99) White Blood Count 12.5 x10^3/uL (4.0-11.0) Red Blood Count 4.11 x10^6/uL (4.30-5.70) Hemoglobin 13.2 g/dL (13.0-17.5) Hematocrit 39.8 % (39.0-53.0) Mean Corpuscular Volume 97 fL (79-100) Mean Corpuscular Hemoglobin 32 pg (25-35) Mean Corpuscular Hemoglobin Concent 33 g/dL (31-37) Red Cell Distribution Width 14.8 % (11.5-14.5) Platelet Count 232 x10^3/uL (140-400) Neutrophils (%) (Auto) 83 % (31-73) Lymphocytes (%) (Auto) 8 % (24-48) Monocytes (%) (Auto) 9 % (0-9) Eosinophils (%) (Auto) 0 % (0-3) Basophils (%) (Auto) 0 % (0-3) Neutrophils # (Auto) 10.4 x10^3uL (1.8-7.7) Lymphocytes # (Auto) 1.1 x10^3/uL (1.0-4.8) Monocytes # (Auto) 1.1 x10^3/uL (0.0-1.1) Eosinophils # (Auto) 0.0 x10^3/uL (0.0-0.7) Basophils # (Auto) 0.0 x10^3/uL (0.0-0.2) Sodium Level 139 mmol/L (136-145) Potassium Level 3.9 mmol/L (3.5-5.1) Chloride Level 103 mmol/L (98-107) Carbon Dioxide Level 27 mmol/L (21-32) Anion Gap 9 (6-14) Blood Urea Nitrogen 15 mg/dL (8-26) Creatinine 1.1 mg/dL (0.7-1.3) Estimated GFR (Cockcroft-Gault) 78.7 Glucose Level 71 mg/dL (70-99) Calcium Level 8.6 mg/dL (8.5-10.1) Test 08/17/18 07:11 08/17/18 11:16 08/17/18 16:27 08/17/18 20:16 Glucose (Fingerstick) 106 mg/dL (70-99) 114 mg/dL (70-99) 141 mg/dL (70-99) 159 mg/dL (70-99) Test 08/18/18 08:02 Glucose (Fingerstick) 97 mg/dL (70-99) Laboratory Tests Test 08/17/18 11:16 08/17/18 16:27 08/17/18 20:16 08/18/18 08:02 Glucose (Fingerstick) 114 mg/dL (70-99) 141 mg/dL (70-99) 159 mg/dL (70-99) 97 mg/dL (70-99) Medications Active Scripts Medications Dose Route/Sig Max Daily Dose Days Date Category Dose Instructions Duoneb 0.5-3(2.5) Mg/3 Ml (Albuterol/Ipratropium) 3 Ml Ampul.neb 3 Ml NEB QIDPRN PRN 08/16/18 Reported Remeron (Mirtazapine) 15 Mg Tablet 1 Tab PO QHS 08/16/18 Reported Proair Hfa Inhaler (Albuterol Sulfate) 8.5 Gm Hfa.aer.ad 1 Puff INH PRN Q6HRS PRN 07/01/18 Rx Benadryl (Diphenhydramine Hcl) 25 Mg Capsule 2 Cap PO Q6HRS PRN 02/24/17 Rx Tamsulosin Hcl 0.4 Mg Cap.er.24h 1 Cap PO HS 02/14/17 Reported Metoprolol Succinate ( Xl ) (Metoprolol Succinate) 25 Mg Tab.er.24h 1 Tab PO DAILY 02/14/17 Reported Trazodone Hcl 50 Mg Tablet 2 Tab PO HS 03/26/15 Reported 100 mg @ HS Xarelto (Rivaroxaban) 15 Mg Tablet 20 Mg PO HS 03/26/15 Reported Simvastatin 20 Mg Tablet 1 Tab PO QHS 10/18/14 Reported Lisinopril 5 Mg Tablet 2.5 Mg PO DAILY 01/29/14 Reported Gabapentin 300 Mg Capsule 300 Mg PO PRN TID PRN 01/29/14 Reported can take 1 or 2 capsules Plavix (Clopidogrel Bisulfate) 75 Mg Tablet 75 Mg PO DAILY 01/29/14 Reported Digoxin 125 Mcg Tablet 125 Mcg PO DAILY 01/29/14 Reported Impression . 1. Clinical pneumonia. 2. Acute exacerbation of chronic obstructive pulmonary disease. 3. Tobacco dependent. 4. Acute purulent bronchitis. Plan . 1. CT chest reviewed. bronchiectasis/ LLL mucous plug 2. Tessalon Perles. 3. Steroids. 4. Continue antibiotics. 5. Pepcid for possible reflux. 6. renal lesion on ct , similar in 2015. will leave up to DR MOON for any w/u VERONICA GASTELUM MD Aug 18, 2018 09:24
[2018-08-18] MEDS: oxyCODONE IR 5 MG TABLET PO SCH ×3 (09:33→23:37)
--- NOTE | 2018-08-18 10:19 | PDOC ---
Subjective: Subjective: Swallowing okay today. Would like something to promote stooling - tried prune juice. Objective: Vital Signs: Vital Signs Date Time Temp Pulse Resp B/P (MAP) Pulse Ox O2 Delivery O2 Flow Rate FiO2 08/18/18 09:33 Room Air 08/18/18 09:18 74 132/92 08/18/18 07:00 98.2 18 92 98.2 08/18/18 03:00 2.0 Labs: Laboratory Tests Test 08/17/18 11:16 08/17/18 16:27 08/17/18 20:16 08/18/18 08:02 Glucose (Fingerstick) 114 mg/dL 141 mg/dL 159 mg/dL 97 mg/dL BLOOD CULTURE Preliminary NO GROWTH AFTER 2 DAYS Imaging: US IMPRESSION: 1. Bilateral renal cysts. 2. The kidneys are otherwise unremarkable. 3. Moderate nonspecific prostatic enlargement. PE: GEN: NAD LUNGS: room air HEART: RRR ABD: S/ND/NT NEURO/PSYCH: A & O 3 A/P: Resp failure - better Abnormal CT chest - dilatation of esophagus w/ air-fluid level -?h/o achalasia w/ past myotomy and hiatal hernia repair ?constipation -- Continue PPI. EGD at some point - can do as outpt. Add Miralax. HONEY AUGUSTE Aug 18, 2018 10:19
--- NOTE | 2018-08-18 10:21 | PDOC ---
IM PROGRESS NOTES- Subjective Subjective Patient continues to have a lot of coughing. He does bring up a lot of mucus. Yesterday he had an episode of severe coughing and dyspnea and the staff to call the element setter. He is feeling somewhat better today. He denies any heartburn or difficulty swallowing but does have some coughing with the hot liquids. Objective Vitals Vital Signs Date Time Temp Pulse Resp B/P (MAP) Pulse Ox O2 Delivery O2 Flow Rate FiO2 08/18/18 09:33 Room Air 08/18/18 09:18 74 132/92 08/18/18 07:00 98.2 18 92 98.2 08/18/18 03:00 2.0 Input & Output Intake and Output 08/18/18 07:00 Intake Total 1600 ml Output Total 950 ml Balance 650 ml Intake Oral 1500 ml IV Total 100 ml Output Urine Total 950 ml # Voids 2 Physical Exam Physical Exam General appearance - alert,well appearing, and in no distress and oriented to person, place, and time Mental Status - alert, oriented to person, place, and time, affect appropriate to mood Head - normal Chest -decreased breath sounds at bases bilaterally Heart - S1 and S2 normal Abdomen - soft, nontender, nondistended, no masses or organomegaly Neurological - alert and oriented Musculoskeletal - no muscular tenderness noted Extremities - no pedal edema Skin - warm and dry Labs Laboratory Tests Test 08/16/18 11:08 08/16/18 16:57 08/16/18 21:05 08/17/18 06:10 Glucose (Fingerstick) 186 mg/dL (70-99) 137 mg/dL (70-99) 161 mg/dL (70-99) White Blood Count 12.5 x10^3/uL (4.0-11.0) Red Blood Count 4.11 x10^6/uL (4.30-5.70) Hemoglobin 13.2 g/dL (13.0-17.5) Hematocrit 39.8 % (39.0-53.0) Mean Corpuscular Volume 97 fL (79-100) Mean Corpuscular Hemoglobin 32 pg (25-35) Mean Corpuscular Hemoglobin Concent 33 g/dL (31-37) Red Cell Distribution Width 14.8 % (11.5-14.5) Platelet Count 232 x10^3/uL (140-400) Neutrophils (%) (Auto) 83 % (31-73) Lymphocytes (%) (Auto) 8 % (24-48) Monocytes (%) (Auto) 9 % (0-9) Eosinophils (%) (Auto) 0 % (0-3) Basophils (%) (Auto) 0 % (0-3) Neutrophils # (Auto) 10.4 x10^3uL (1.8-7.7) Lymphocytes # (Auto) 1.1 x10^3/uL (1.0-4.8) Monocytes # (Auto) 1.1 x10^3/uL (0.0-1.1) Eosinophils # (Auto) 0.0 x10^3/uL (0.0-0.7) Basophils # (Auto) 0.0 x10^3/uL (0.0-0.2) Sodium Level 139 mmol/L (136-145) Potassium Level 3.9 mmol/L (3.5-5.1) Chloride Level 103 mmol/L (98-107) Carbon Dioxide Level 27 mmol/L (21-32) Anion Gap 9 (6-14) Blood Urea Nitrogen 15 mg/dL (8-26) Creatinine 1.1 mg/dL (0.7-1.3) Estimated GFR (Cockcroft-Gault) 78.7 Glucose Level 71 mg/dL (70-99) Calcium Level 8.6 mg/dL (8.5-10.1) Test 08/17/18 07:11 08/17/18 11:16 08/17/18 16:27 08/17/18 20:16 Glucose (Fingerstick) 106 mg/dL (70-99) 114 mg/dL (70-99) 141 mg/dL (70-99) 159 mg/dL (70-99) Test 08/18/18 08:02 Glucose (Fingerstick) 97 mg/dL (70-99) Laboratory Tests Test 08/17/18 11:16 08/17/18 16:27 08/17/18 20:16 08/18/18 08:02 Glucose (Fingerstick) 114 mg/dL (70-99) 141 mg/dL (70-99) 159 mg/dL (70-99) 97 mg/dL (70-99) Meds Current Medications Pantoprazole Sodium (Protonix) 40 mg DAILYAC PO Last administered on at 09:16; Start 08/17/18 at 14:00 Assessment Assessment 1. Sepsis. 2. Pneumonia. 3. Acute exacerbation of chronic obstructive pulmonary disease. 4. Coronary artery disease. 5. Peripheral neuropathy. 6. History of Jhaveri's palsy. 7. Chronic low back pain, with back surgeries x 2. 8. Chronic diastolic congestive heart failure with ejection fraction of 55% and AICD. 9. Hypertensive crisis. 10. Hyperlipidemia. 11. History of repair of the aortic aneurysm as well as right common iliac artery aneurysm. 12. History of deep venous thrombosis. 13. Osteoarthritis. 14. Diverticulosis. PLAN: Continue Xarelto for atrial fibrillation that is chronic. I will start him on IV Levaquin. Consult Dr. Resendiz for Pulmonary evaluation and management and Dr. Rushing for Infectious Disease evaluation and management. Continue breathing treatment. The patient has been given IV fluids. I have started him on IV steroids. We will monitor blood sugars. For details, please review the orders. Pneumonia - clinically improving however he continues to have a lot of coughing. CT chest showed bronchiectasis. Possible dysphagia- patient has an abnormal CT with the fluid level in the esophagus. Patient states that he had esophageal surgery previously. I'll consult Dr. Banks for GI evaluation and management. Discussed with Dr. Banks. 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 He will need an EGD as outpatient. These patients are at high risk for squamous cell carcinoma. Plan Plan For more details regarding further plans, please refer to the orders. RENE MOON MD Aug 18, 2018 10:21
[2018-08-18] MEDS: POLYETHYLENE GLYCOL 3350 17 GM PACKET. PO SCH (11:00)
--- NOTE | 2018-08-18 11:26 | PDOC ---
Infectious Disease Note Subjective: Subjective Pt says feels better though has bouts of coughing with copious secretions, no hemoptysis no f/c/n/v/abdo pain/chestpain ROS: ROS Negative except for above. Vital Signs: Vital Signs Vital Signs Date Time Temp Pulse Resp B/P (MAP) Pulse Ox O2 Delivery O2 Flow Rate FiO2 08/18/18 11:04 Room Air 08/18/18 09:18 74 132/92 08/18/18 07:00 98.2 18 92 98.2 08/18/18 03:00 2.0 Physical Exam: PHYSICAL EXAM GENERAL: Alert, oriented x 3 male in no acute distress, lying comfortably in bed, though has bouts of cough. HEENT: Normocephalic, atraumatic. Anicteric. No thrush. Oral mucosa moist. NECK: Supple. LUNGS: Decreased breath sounds at the bases. Mild expiratory rhonchi. HEART: S1, S2. ABDOMEN: Soft, nontender, nondistended. Bowel sounds present. EXTREMITIES: No edema, no cyanosis, no clubbing. CENTRAL NERVOUS SYSTEM: Grossly nonfocal. Alert, oriented x 3. PSYCHIATRIC: Cooperative, appropriate mood and affect. Medications: Inpatient Meds: Current Medications Medications (Trade) Dose Ordered Sig/Alma [place] Start Time Stop Time Status Last Admin Dose Admin Acetaminophen (Tylenol) 650 mg PRN Q6HRS PRN 08/16/18 09:00 Albuterol Sulfate (Ventolin Neb Soln) 2.5 mg PRN Q6HRS PRN 08/16/18 09:15 Albuterol/ Ipratropium (Duoneb) 3 ml RTQID 08/16/18 12:00 08/18/18 10:57 3 ML Clopidogrel Bisulfate (Plavix) 75 mg DAILY 08/16/18 09:00 UNV Digoxin (Lanoxin) 125 mcg DAILY 08/16/18 09:00 UNV Diphenhydramine HCl (Benadryl) 50 mg PRN Q6HRS PRN 08/16/18 08:45 Gabapentin (Neurontin) 300 mg PRN TID PRN 08/16/18 09:00 Ipratropium Anderson (Atrovent) 0.5 mg 1X ONCE 08/16/18 02:00 08/16/18 02:09 DC 10/29/18 02:06 0.5 MG Lactobacillus Rhamnosus (Culturelle) 1 cap BID 08/16/18 21:00 08/18/18 09:18 1 CAP Levofloxacin/ Dextrose 100 ml @ 100 mls/hr Q24H 08/16/18 10:00 08/17/18 10:07 DC 08/16/18 09:49 100 MLS/HR Linezolid (Zyvox) 600 mg BID 08/16/18 11:30 08/17/18 10:07 DC 08/17/18 08:24 600 MG Lisinopril (Prinivil) 2.5 mg DAILY 08/16/18 09:00 08/18/18 09:16 2.5 MG Methylprednisolone Sodium Succinate (SOLU-Medrol 40MG VIAL) 60 mg DAILY08 08/19/18 08:00 Methylprednisolone Sodium Succinate (SOLU-Medrol 125MG VIAL) 125 mg 1X ONCE 08/16/18 02:30 08/16/18 02:31 DC 08/16/18 02:24 125 MG Metoprolol Succinate (Toprol Xl) 25 mg DAILY 08/16/18 09:00 UNV Mirtazapine (Remeron) 15 mg QHS 08/16/18 21:00 08/17/18 21:26 15 MG Non-Formulary Medication (Albuterol Sulfate (Proair Hfa Inhaler)) 1 puff PRN Q6HRS PRN 08/16/18 08:45 UNV Non-Formulary Medication (Gabapentin ) 300 mg PRN TID PRN 08/16/18 09:00 UNV Non-Formulary Medication (Lisinopril ) 2.5 mg DAILY 08/16/18 09:00 UNV Non-Formulary Medication (Mirtazapine (Remeron)) 1 tab QHS 08/16/18 21:00 UNV Non-Formulary Medication (Simvastatin ) 1 tab QHS 08/16/18 21:00 UNV Oxycodone HCl (Roxicodone) 20 mg TID 08/16/18 09:30 08/18/18 09:33 20 MG Pantoprazole Sodium (Protonix) 40 mg DAILYAC 08/17/18 14:00 08/18/18 09:16 40 MG Piperacillin Sod/ Tazobactam Sod 3.375 gm/Sodium Chloride 50 ml @ 100 mls/hr Q6HRS 08/16/18 12:00 08/18/18 05:53 100 MLS/HR Polyethylene Glycol (miraLAX PACKET) 17 gm DAILY 08/18/18 11:00 Rivaroxaban (Xarelto) 20 mg HS 08/16/18 21:00 UNV Simvastatin (Zocor) 20 mg HS 08/16/18 21:00 08/17/18 21:26 20 MG Sodium Chloride 1,000 ml @ 100 mls/hr Q10H 08/16/18 04:18 08/17/18 04:17 DC 08/17/18 01:24 100 MLS/HR Tamsulosin HCl (Flomax) 0.4 mg HS 08/16/18 21:00 UNV Trazodone HCl (Desyrel) 100 mg HS 08/16/18 21:00 UNV Labs: Lab Laboratory Tests Test 08/17/18 16:27 08/17/18 20:16 08/18/18 08:02 Glucose (Fingerstick) 141 mg/dL (70-99) 159 mg/dL (70-99) 97 mg/dL (70-99) Micro BC neg CT CHEST IMPRESSION: 1. There is again bronchiectasis with lower lobe predominance, associated bronchial wall thickening suggestive of bronchitis. There is also mild endobronchial density in the left lower lobe could be due to mucus plugging although underlying endobronchial mass not excluded by this exam. 2. There is emphysema. There is no lobar infiltrate. 3. There is again dilatation ascending thoracic aorta about 4.5 cm. 4. There is again dilatation of esophagus with air-fluid level. 5. There is coronary calcification. 6. There is indeterminate exophytic lesion of the right kidney although similar in size compared with 2015 exam. There is again adjacent right renal calculus. 7. There is stable nonspecific mediastinal lymphadenopathy. Objective: Assessment: 1. Lactic acidosis 2. Pulmonary infiltrates with pulmonary fibrosis 2. Acute exacerbation of chronic obstructive pulmonary disease.failed 2 outpt treatment with antibiotics 3. CAD 4. AAA 5. Bronchiectasis 6. Dilatation of esophagus with air-fluid level on CT Chest ? h/o achalasia w/ past myotomy and hiatal hernia repair Plan: Plan of Care Cont Zosyn,can transition to po augmentin when ready for discharge off levaquin and zyvox on steroids on PPI;plans are for egd as outpt Follow up labs in am and cultures Continue supportive care. D/W ROLO PAZ MD Aug 18, 2018 11:26
[2018-08-18] MEDS: ANTI-COAG MONITOR BY PHARMACY. MC PRN (17:25)
[2018-08-18] MEDS: RIVAROXABAN 10 MG TABLET. PO SCH (17:48)
[2018-08-18 21:49] LABS: BASO % 0 % (0-3); EOS % 0 % (0-3); HEMOGLOBIN 13.8 g/dL (13.0-17.5); LYMPH % 10 % (24-48); MEAN CORPUSCULAR HEMOGLOBIN 32 pg (25-35); MEAN CORPUSCULAR HGB CONC 34 g/dL (31-37); MEAN CORPUSCULAR VOLUME 95 fL (79-100); MONO % 10 % (0-9); NEUT # 7.9 x10^3uL (1.8-7.7); NEUT % 79 % (31-73); PLATELET COUNT 242 x10^3/uL (140-400); RED CELL DISTRIBUTION WIDTH 14.6 % (11.5-14.5)
[2018-08-18 22:00] LABS: CALCIUM 8.7 mg/dL (8.5-10.1); CREATININE 1.3 mg/dL (0.7-1.3); GFR 64.9; MAGNESIUM 2.1 mg/dL (1.8-2.4); POTASSIUM 3.9 mmol/L (3.5-5.1)
--- NOTE | 2018-08-18 22:12 | RAD ---
Examination: CT HEAD WO CONTRAST History: AMS Comparison/Correlation: 09/24/2017 CT head without contrast Findings: Axial images of the head were obtained without contrast. Atrophy is present. Anterior left temporal encephalomalacia is similar to the previous exam. No midline shift or mass effect. No depressed fracture. Impression: Old left frontal lobe infarct. No acute process. Electronically signed by: Valdez Baptiste MD (08/18/2018 10:09 PM) [facility]
[2018-08-18] MEDS ORDERED: QUEtiapine 25 MG TABLET. PO ONE (22:45)
[2018-08-18] MEDS: SIMVASTATIN 20 MG TABLET PO SCH (23:36)
[2018-08-18] MEDS: traZODone 50 MG TABLET. PO SCH (23:37)
[2018-08-18] MEDS: MIRTAZAPINE 15 MG TABLET PO SCH (23:38)
[2018-08-18] MEDS: TAMSULOSIN 0.4 MG CAP.ER.24H. PO SCH (23:38)
[2018-08-19] MEDS: PIPERACILLIN/TAZOBACTAM 3.375 GM in IV NORMAL SALINE 50ML 50 ML IV SCH ×3 (00:33→12:24)
[2018-08-19 03:52] VITALS: BP 162/83
[2018-08-19 04:22] LABS: BASO % 0 % (0-3); EOS % 0 % (0-3); HEMATOCRIT 41.2 % (39.0-53.0); LYMPH # 2.3 x10^3/uL (1.0-4.8); LYMPH % 23 % (24-48); MEAN CORPUSCULAR HEMOGLOBIN 33 pg (25-35); MEAN CORPUSCULAR HGB CONC 34 g/dL (31-37); MEAN CORPUSCULAR VOLUME 96 fL (79-100); MONO # 1.1 x10^3/uL (0.0-1.1); MONO % 11 % (0-9); NEUT # 6.7 x10^3uL (1.8-7.7); NEUT % 66 % (31-73); PLATELET COUNT 229 x10^3/uL (140-400); RED BLOOD COUNT 4.31 x10^6/uL (4.30-5.70); RED CELL DISTRIBUTION WIDTH 14.5 % (11.5-14.5); WHITE BLOOD COUNT 10.2 x10^3/uL (4.0-11.0)
[2018-08-19 04:48] LABS: CALCIUM 8.7 mg/dL (8.5-10.1); CREATININE 1.2 mg/dL (0.7-1.3); GFR 71.2; POTASSIUM 3.7 mmol/L (3.5-5.1)
[2018-08-19 07:00] VITALS: BP 152/78
[2018-08-19] MEDS: METOPROLOL SUCC 24HR ER 25 MG TAB.ER.24H. PO SCH (07:47)
[2018-08-19] MEDS: LACTOBACILLUS RHAMNOSUS GG 1 CAPSULE. PO SCH ×2 (07:48→20:45)
[2018-08-19] MEDS: PANTOPRAZOLE 40 MG TABLET.DR. PO SCH (07:48)
[2018-08-19] MEDS: DIGOXIN 125 MCG TABLET. PO SCH (07:48)
[2018-08-19] MEDS: IPRATRPIUM/ALBUTEROL 0.5/2.5MG 3 ML NEBU. NEB SCH ×4 (07:52→19:53)
[2018-08-19] MEDS: LISINOPRIL 5 MG TABLET. PO SCH (07:54)
[2018-08-19] MEDS: oxyCODONE IR 5 MG TABLET PO SCH ×3 (07:59→20:45)
[2018-08-19] MEDS ORDERED: QUEtiapine 25 MG TABLET. PO ONE (08:00)
[2018-08-19] MEDS: CLOPIDOGREL BISULFATE 75 MG TABLET PO SCH (08:00)
[2018-08-19] MEDS ORDERED: methylPREDNISolone SOD SUCC PF 40 MG/ML VIAL. IV SCH (08:00)
[2018-08-19 08:01] LABS: BASE EXCESS ABG 0 mmol/L (-3-3); HCO3 ABG 24 mmol/L (21-28); PCO2 ABG 34 mmHg (35-46); PO2 ABG 61 mmHg (65-108); SAT O2 ABG 93 % (92-99)
[2018-08-19] MEDS: ANTI-COAG MONITOR BY PHARMACY. MC PRN (08:01)
[2018-08-19 08:05] LABS: FIO2 ABG 21
--- NOTE | 2018-08-19 08:25 | EKG ---
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 ABNORMAL ECG RI6.01 Electronically Signed On 08-23-2018 12:49:09 AUTOMATION ENGINEERING TECHNICIAN by Adriel Gao
[2018-08-19] MEDS: POLYETHYLENE GLYCOL 3350 17 GM PACKET. PO SCH (09:00)
--- NOTE | 2018-08-19 09:12 | PDOC ---
Subjective: Subjective: Says he's fine, denies swallowing issues. Objective: Objective: Rapid response last night, confusion, transfer to CVC. Now we know (?daughter called) he apparently drinks a pint of gin daily, maybe also some bourbon and/or beer. RN says two stools this morning - loose - Miralax held. Vital Signs: Vital Signs Date Time Temp Pulse Resp B/P (MAP) Pulse Ox O2 Delivery O2 Flow Rate FiO2 08/19/18 08:00 Room Air 08/19/18 07:59 94 08/19/18 07:54 98 152/78 08/19/18 07:00 97.6 18 97.6 08/19/18 00:37 2.0 Labs: Laboratory Tests Test 08/18/18 20:08 08/18/18 21:40 08/19/18 03:15 08/19/18 07:50 Glucose (Fingerstick) 124 mg/dL White Blood Count 10.0 x10^3/uL 10.2 x10^3/uL Red Blood Count 4.30 x10^6/uL 4.31 x10^6/uL Hemoglobin 13.8 g/dL 14.0 g/dL Hematocrit 41.0 % 41.2 % Mean Corpuscular Volume 95 fL 96 fL Mean Corpuscular Hemoglobin 32 pg 33 pg Mean Corpuscular Hemoglobin Concent 34 g/dL 34 g/dL Red Cell Distribution Width 14.6 % 14.5 % Platelet Count 242 x10^3/uL 229 x10^3/uL Neutrophils (%) (Auto) 79 % 66 % Lymphocytes (%) (Auto) 10 % 23 % Monocytes (%) (Auto) 10 % 11 % Eosinophils (%) (Auto) 0 % 0 % Basophils (%) (Auto) 0 % 0 % Neutrophils # (Auto) 7.9 x10^3uL 6.7 x10^3uL Lymphocytes # (Auto) 1.0 x10^3/uL 2.3 x10^3/uL Monocytes # (Auto) 1.0 x10^3/uL 1.1 x10^3/uL Eosinophils # (Auto) 0.0 x10^3/uL 0.0 x10^3/uL Basophils # (Auto) 0.0 x10^3/uL 0.0 x10^3/uL Sodium Level 143 mmol/L 144 mmol/L Potassium Level 3.9 mmol/L 3.7 mmol/L Chloride Level 105 mmol/L 105 mmol/L Carbon Dioxide Level 32 mmol/L 32 mmol/L Anion Gap 6 7 Blood Urea Nitrogen 16 mg/dL 13 mg/dL Creatinine 1.3 mg/dL 1.2 mg/dL Estimated GFR (Cockcroft-Gault) 64.9 71.2 Glucose Level 104 mg/dL 79 mg/dL Calcium Level 8.7 mg/dL 8.7 mg/dL Magnesium Level 2.1 mg/dL Troponin I Quantitative 0.146 ng/mL 0.072 ng/mL UY-Add-E-Type Natriuretic Peptide 2223 pg/mL O2 Saturation 93 % Arterial Blood pH 7.46 Arterial Blood pCO2 at Patient Temp 34 mmHg Arterial Blood pO2 at Patient Temp 61 mmHg Arterial Blood HCO3 24 mmol/L Arterial Blood Base Excess 0 mmol/L FiO2 21 BLOOD CULTURE Preliminary NO GROWTH AFTER 3 DAYS Imaging: Head CT Impression: Old left frontal lobe infarct. No acute process. PE: GEN: NAD LUNGS: room air HEART: RRR ABD: non-tender NEURO/PSYCH: drowsy while eating breakfast I asked him if he knew where he was or what year it was - "Nope." RN present and asks if he remembers the [employer] show (currently on tv) - "Yep." A/P: Confusion Resp failure - pneumonia, COPD, CHF Alcohol overuse Abnormal CT chest - dilatation of esophagus w/ air-fluid level, ?h/o achalasia s /p myotomy and hiatal hernia repair -- ?withdrawal Continue PPI. EGD at some point. HONEY AUGUSTE Aug 19, 2018 09:12
--- NOTE | 2018-08-19 10:04 | EKG ---
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
--- NOTE | 2018-08-19 10:08 | PDOC ---
Infectious Disease Note Subjective Subjective Rapid response called last evening for increase confusion, transferred down to On 1:1 observation Patient says feeling alright Mild cough Denies pain/upset stomach/SOA No fevers ROS ROS per HPI Vital Sign Vital Signs Vital Signs Date Time Temp Pulse Resp B/P (MAP) Pulse Ox O2 Delivery O2 Flow Rate FiO2 08/19/18 08:00 Room Air 08/19/18 07:59 94 08/19/18 07:54 98 152/78 08/19/18 07:00 97.6 18 97.6 08/19/18 00:37 2.0 Physical Exam PHYSICAL EXAM GENERAL: Propped up in bed, alert, calm - ambulated with assistance to bathroom HEENT: Oral mucosa moist. NECK: Supple. LUNGS: Decreased breath sounds at the bases. HEART: S1, S2. ABDOMEN: Soft, nontender, nondistended. Bowel sounds present. EXTREMITIES: No edema, no cyanosis, no clubbing. TEACHER VOCAL: Alert, confused, follows simple commands Labs Lab Laboratory Tests Test 08/18/18 20:08 08/18/18 21:40 08/19/18 03:15 08/19/18 07:50 Glucose (Fingerstick) 124 mg/dL (70-99) White Blood Count 10.0 x10^3/uL (4.0-11.0) 10.2 x10^3/uL (4.0-11.0) Red Blood Count 4.30 x10^6/uL (4.30-5.70) 4.31 x10^6/uL (4.30-5.70) Hemoglobin 13.8 g/dL (13.0-17.5) 14.0 g/dL (13.0-17.5) Hematocrit 41.0 % (39.0-53.0) 41.2 % (39.0-53.0) Mean Corpuscular Volume 95 fL (79-100) 96 fL (79-100) Mean Corpuscular Hemoglobin 32 pg (25-35) 33 pg (25-35) Mean Corpuscular Hemoglobin Concent 34 g/dL (31-37) 34 g/dL (31-37) Red Cell Distribution Width 14.6 % (11.5-14.5) 14.5 % (11.5-14.5) Platelet Count 242 x10^3/uL (140-400) 229 x10^3/uL (140-400) Neutrophils (%) (Auto) 79 % (31-73) 66 % (31-73) Lymphocytes (%) (Auto) 10 % (24-48) 23 % (24-48) Monocytes (%) (Auto) 10 % (0-9) 11 % (0-9) Eosinophils (%) (Auto) 0 % (0-3) 0 % (0-3) Basophils (%) (Auto) 0 % (0-3) 0 % (0-3) Neutrophils # (Auto) 7.9 x10^3uL (1.8-7.7) 6.7 x10^3uL (1.8-7.7) Lymphocytes # (Auto) 1.0 x10^3/uL (1.0-4.8) 2.3 x10^3/uL (1.0-4.8) Monocytes # (Auto) 1.0 x10^3/uL (0.0-1.1) 1.1 x10^3/uL (0.0-1.1) Eosinophils # (Auto) 0.0 x10^3/uL (0.0-0.7) 0.0 x10^3/uL (0.0-0.7) Basophils # (Auto) 0.0 x10^3/uL (0.0-0.2) 0.0 x10^3/uL (0.0-0.2) Sodium Level 143 mmol/L (136-145) 144 mmol/L (136-145) Potassium Level 3.9 mmol/L (3.5-5.1) 3.7 mmol/L (3.5-5.1) Chloride Level 105 mmol/L (98-107) 105 mmol/L (98-107) Carbon Dioxide Level 32 mmol/L (21-32) 32 mmol/L (21-32) Anion Gap 6 (6-14) 7 (6-14) Blood Urea Nitrogen 16 mg/dL (8-26) 13 mg/dL (8-26) Creatinine 1.3 mg/dL (0.7-1.3) 1.2 mg/dL (0.7-1.3) Estimated GFR (Cockcroft-Gault) 64.9 71.2 Glucose Level 104 mg/dL (70-99) 79 mg/dL (70-99) Calcium Level 8.7 mg/dL (8.5-10.1) 8.7 mg/dL (8.5-10.1) Magnesium Level 2.1 mg/dL (1.8-2.4) Troponin I Quantitative 0.146 ng/mL (0.000-0.055) 0.072 ng/mL (0.000-0.055) TT-Dmw-W-Type Natriuretic Peptide 2223 pg/mL (0-449) O2 Saturation 93 % (92-99) Arterial Blood pH 7.46 (7.35-7.45) Arterial Blood pCO2 at Patient Temp 34 mmHg (35-46) Arterial Blood pO2 at Patient Temp 61 mmHg (65-108) Arterial Blood HCO3 24 mmol/L (21-28) Arterial Blood Base Excess 0 mmol/L (-3-3) FiO2 21 CT head Impression: Old left frontal lobe infarct. No acute process. Micro BLOOD CULTURE Preliminary NO GROWTH AFTER 3 DAYS Objective Assessment Encephalopathy Lactic acidosis Pulmonary infiltrates with pulmonary fibrosis Acute exacerbation of chronic obstructive pulmonary disease. Failed 2 outpt treatment with antibiotics CAD AAA Bronchiectasis Dilatation of esophagus with air-fluid level on CT Chest ? h/o achalasia w/ past myotomy and hiatal hernia repair Alcohol abuse Plan Plan of Care Discont Zosyn,can transition to po Augmentin now off Levaquin and Zyvox Probiotics steroids now off on PPI; plans are for EGD as outpt Continue supportive care. D/W RN Attending Co-Sign Attending Co-Sign The patient was seen and interviewed as well as examined at the bedside. The chart was reviewed. The case was discussed. Agree with the plan of care. BRENDON HURLEY APRN Aug 19, 2018 10:08 MAGY JONES MD Aug 19, 2018 13:48
--- NOTE | 2018-08-19 10:27 | PDOC ---
IM PROGRESS NOTES- Subjective Subjective Patient became very confused and agitated yesterday evening. A rapid response was called. Patient also tried to get out of the hospital. Patient to remain agitated and his EKG showed irregular rhythm. That's why he was transferred to CVC unit. Family stated the patient was drinking 1 pint of gin and also other alcohol. Patient was given IV Ativan. This morning he is still confused and sleepy but is calm. He denies any chest pains, palpitations or dizziness. He is not a good historian. Objective Vitals Vital Signs Date Time Temp Pulse Resp B/P (MAP) Pulse Ox O2 Delivery O2 Flow Rate FiO2 08/19/18 08:00 Room Air 08/19/18 07:59 94 08/19/18 07:54 98 152/78 08/19/18 07:00 97.6 18 97.6 08/19/18 00:37 2.0 Input & Output Intake and Output 08/19/18 07:00 Intake Total 1310 ml Output Total 600 ml Balance 710 ml Intake Oral 1160 ml Other 150 ml Output Urine Total 600 ml # Voids 2 # Bowel Movements 3 Physical Exam Physical Exam General appearance -sleepy and confused Mental Status -sleepy, confused Chest -decreased breath sounds at bases bilaterally Heart - S1 and S2 normal Abdomen - soft, nontender, nondistended, no masses or organomegaly Neurological -confused Musculoskeletal - no muscular tenderness noted Extremities - no pedal edema Skin - warm and dry Labs Laboratory Tests Test 08/17/18 11:16 08/17/18 16:27 08/17/18 20:16 08/18/18 08:02 Glucose (Fingerstick) 114 mg/dL (70-99) 141 mg/dL (70-99) 159 mg/dL (70-99) 97 mg/dL (70-99) Test 08/18/18 20:08 08/18/18 21:40 08/19/18 03:15 08/19/18 07:50 Glucose (Fingerstick) 124 mg/dL (70-99) White Blood Count 10.0 x10^3/uL (4.0-11.0) 10.2 x10^3/uL (4.0-11.0) Red Blood Count 4.30 x10^6/uL (4.30-5.70) 4.31 x10^6/uL (4.30-5.70) Hemoglobin 13.8 g/dL (13.0-17.5) 14.0 g/dL (13.0-17.5) Hematocrit 41.0 % (39.0-53.0) 41.2 % (39.0-53.0) Mean Corpuscular Volume 95 fL (79-100) 96 fL (79-100) Mean Corpuscular Hemoglobin 32 pg (25-35) 33 pg (25-35) Mean Corpuscular Hemoglobin Concent 34 g/dL (31-37) 34 g/dL (31-37) Red Cell Distribution Width 14.6 % (11.5-14.5) 14.5 % (11.5-14.5) Platelet Count 242 x10^3/uL (140-400) 229 x10^3/uL (140-400) Neutrophils (%) (Auto) 79 % (31-73) 66 % (31-73) Lymphocytes (%) (Auto) 10 % (24-48) 23 % (24-48) Monocytes (%) (Auto) 10 % (0-9) 11 % (0-9) Eosinophils (%) (Auto) 0 % (0-3) 0 % (0-3) Basophils (%) (Auto) 0 % (0-3) 0 % (0-3) Neutrophils # (Auto) 7.9 x10^3uL (1.8-7.7) 6.7 x10^3uL (1.8-7.7) Lymphocytes # (Auto) 1.0 x10^3/uL (1.0-4.8) 2.3 x10^3/uL (1.0-4.8) Monocytes # (Auto) 1.0 x10^3/uL (0.0-1.1) 1.1 x10^3/uL (0.0-1.1) Eosinophils # (Auto) 0.0 x10^3/uL (0.0-0.7) 0.0 x10^3/uL (0.0-0.7) Basophils # (Auto) 0.0 x10^3/uL (0.0-0.2) 0.0 x10^3/uL (0.0-0.2) Sodium Level 143 mmol/L (136-145) 144 mmol/L (136-145) Potassium Level 3.9 mmol/L (3.5-5.1) 3.7 mmol/L (3.5-5.1) Chloride Level 105 mmol/L (98-107) 105 mmol/L (98-107) Carbon Dioxide Level 32 mmol/L (21-32) 32 mmol/L (21-32) Anion Gap 6 (6-14) 7 (6-14) Blood Urea Nitrogen 16 mg/dL (8-26) 13 mg/dL (8-26) Creatinine 1.3 mg/dL (0.7-1.3) 1.2 mg/dL (0.7-1.3) Estimated GFR (Cockcroft-Gault) 64.9 71.2 Glucose Level 104 mg/dL (70-99) 79 mg/dL (70-99) Calcium Level 8.7 mg/dL (8.5-10.1) 8.7 mg/dL (8.5-10.1) Magnesium Level 2.1 mg/dL (1.8-2.4) Troponin I Quantitative 0.146 ng/mL (0.000-0.055) 0.072 ng/mL (0.000-0.055) KP-Hsv-Q-Type Natriuretic Peptide 2223 pg/mL (0-449) O2 Saturation 93 % (92-99) Arterial Blood pH 7.46 (7.35-7.45) Arterial Blood pCO2 at Patient Temp 34 mmHg (35-46) Arterial Blood pO2 at Patient Temp 61 mmHg (65-108) Arterial Blood HCO3 24 mmol/L (21-28) Arterial Blood Base Excess 0 mmol/L (-3-3) FiO2 21 Laboratory Tests Test 08/18/18 20:08 08/18/18 21:40 08/19/18 03:15 08/19/18 07:50 Glucose (Fingerstick) 124 mg/dL (70-99) White Blood Count 10.0 x10^3/uL (4.0-11.0) 10.2 x10^3/uL (4.0-11.0) Red Blood Count 4.30 x10^6/uL (4.30-5.70) 4.31 x10^6/uL (4.30-5.70) Hemoglobin 13.8 g/dL (13.0-17.5) 14.0 g/dL (13.0-17.5) Hematocrit 41.0 % (39.0-53.0) 41.2 % (39.0-53.0) Mean Corpuscular Volume 95 fL (79-100) 96 fL (79-100) Mean Corpuscular Hemoglobin 32 pg (25-35) 33 pg (25-35) Mean Corpuscular Hemoglobin Concent 34 g/dL (31-37) 34 g/dL (31-37) Red Cell Distribution Width 14.6 % (11.5-14.5) 14.5 % (11.5-14.5) Platelet Count 242 x10^3/uL (140-400) 229 x10^3/uL (140-400) Neutrophils (%) (Auto) 79 % (31-73) 66 % (31-73) Lymphocytes (%) (Auto) 10 % (24-48) 23 % (24-48) Monocytes (%) (Auto) 10 % (0-9) 11 % (0-9) Eosinophils (%) (Auto) 0 % (0-3) 0 % (0-3) Basophils (%) (Auto) 0 % (0-3) 0 % (0-3) Neutrophils # (Auto) 7.9 x10^3uL (1.8-7.7) 6.7 x10^3uL (1.8-7.7) Lymphocytes # (Auto) 1.0 x10^3/uL (1.0-4.8) 2.3 x10^3/uL (1.0-4.8) Monocytes # (Auto) 1.0 x10^3/uL (0.0-1.1) 1.1 x10^3/uL (0.0-1.1) Eosinophils # (Auto) 0.0 x10^3/uL (0.0-0.7) 0.0 x10^3/uL (0.0-0.7) Basophils # (Auto) 0.0 x10^3/uL (0.0-0.2) 0.0 x10^3/uL (0.0-0.2) Sodium Level 143 mmol/L (136-145) 144 mmol/L (136-145) Potassium Level 3.9 mmol/L (3.5-5.1) 3.7 mmol/L (3.5-5.1) Chloride Level 105 mmol/L (98-107) 105 mmol/L (98-107) Carbon Dioxide Level 32 mmol/L (21-32) 32 mmol/L (21-32) Anion Gap 6 (6-14) 7 (6-14) Blood Urea Nitrogen 16 mg/dL (8-26) 13 mg/dL (8-26) Creatinine 1.3 mg/dL (0.7-1.3) 1.2 mg/dL (0.7-1.3) Estimated GFR (Cockcroft-Gault) 64.9 71.2 Glucose Level 104 mg/dL (70-99) 79 mg/dL (70-99) Calcium Level 8.7 mg/dL (8.5-10.1) 8.7 mg/dL (8.5-10.1) Magnesium Level 2.1 mg/dL (1.8-2.4) Troponin I Quantitative 0.146 ng/mL (0.000-0.055) 0.072 ng/mL (0.000-0.055) DU-Rqo-N-Type Natriuretic Peptide 2223 pg/mL (0-449) O2 Saturation 93 % (92-99) Arterial Blood pH 7.46 (7.35-7.45) Arterial Blood pCO2 at Patient Temp 34 mmHg (35-46) Arterial Blood pO2 at Patient Temp 61 mmHg (65-108) Arterial Blood HCO3 24 mmol/L (21-28) Arterial Blood Base Excess 0 mmol/L (-3-3) FiO2 21 Meds Current Medications Info (Anti-Coagulation Monitoring By Pharmacy) 1 each PRN DAILY PRN MC SEE COMMENTS Last administered on 08/19/18at 08:01; Start 08/18/18 at 12:15 Lorazepam (Ativan) 0.5 mg 1X ONCE IV Last administered on 08/18/18at 23:39; Start 08/18/18 at 22:45; Stop 08/18/18 at 22:46; Status DC Lorazepam (Ativan) 0.5 mg PRN Q6HRS PRN IV ANXIETY / AGITATION; Start at 22:30 Methylprednisolone Sodium Succinate (SOLU-Medrol 40MG VIAL) 60 mg DAILY08 IV Last administered on 08/19/18at 07:46; Start 08/19/18 at 08:00 Polyethylene Glycol (miraLAX PACKET) 17 gm DAILY PO ; Start 08/18/18 at 11:00 Quetiapine Fumarate (SEROquel) 25 mg 1X ONCE PO Last administered on at 23:37; Start 08/18/18 at 22:45; Stop 08/18/18 at 22:46; Status DC Quetiapine Fumarate (SEROquel) 25 mg ONCE ONCE PO Last administered on at 07:48; Start 08/19/18 at 08:00; Stop 08/19/18 at 08:01; Status DC Assessment Assessment 1. Sepsis. 2. Pneumonia. 3. Acute exacerbation of chronic obstructive pulmonary disease. 4. Coronary artery disease. 5. Peripheral neuropathy. 6. History of Jhaveri's palsy. 7. Chronic low back pain, with back surgeries x 2. 8. Chronic diastolic congestive heart failure with ejection fraction of 55% and AICD. 9. Hypertensive crisis. 10. Hyperlipidemia. 11. History of repair of the aortic aneurysm as well as right common iliac artery aneurysm. 12. History of deep venous thrombosis. 13. Osteoarthritis. 14. Diverticulosis. PLAN: Continue Xarelto for atrial fibrillation that is chronic. I will start him on IV Levaquin. Consult Dr. Resendiz for Pulmonary evaluation and management and Dr. Rushing for Infectious Disease evaluation and management. Continue breathing treatment. The patient has been given IV fluids. I have started him on IV steroids. We will monitor blood sugars. For details, please review the orders. Pneumonia - clinically improving however he continues to have a lot of coughing. CT chest showed bronchiectasis. Discussed with Dr. Blanchard. I will discontinue IV steroids. This will also help his agitation. Possible dysphagia- patient has an abnormal CT with the fluid level in the esophagus. Patient states that he had esophageal surgery previously. I'll consult Dr. Banks for GI evaluation and management. Discussed with Dr. Banks. 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 He will need an EGD as outpatient. These patients are at high risk for squamous cell carcinoma. Acute metabolic encephalopathy likely due to alcohol withdrawal. Continue IV or by mouth Ativan as needed. Continue cardiac monitoring. Magnesium and potassium levels are stable. Cardiac arrhythmia and elevated troponin level- EKG reviewed. Cardiology consult obtained. Continue cardiac monitoring. Plan Plan For more details regarding further plans, please refer to the orders. RENE MOON MD Aug 19, 2018 10:27
[2018-08-19 11:00] VITALS: BP 145/104
--- NOTE | 2018-08-19 11:10 | PDOC2 ---
CARDIAC CONSULT DATE OF CONSULT Date of Consult DATE: 08/19/18 TIME: 10:55 REASON FOR CONSULT Reason for Consult: Altered LOC REFERRING PHYSICIAN Referring Physician: Dr. Olivas SOURCE Source: Chart review HISTORY OF PRESENT ILLNESS HISTORY OF PRESENT ILLNESS This is a 78 yo male who initially presented with complaints of shortness of breath and cough. HPI limited due to confusion. Yesterday evening, Patient became very confused and agitated; rapid response was called. EKG was notable for irregular rhythm and patient was transferred to [facility] and cardiology consult was obtained. Patient presently denies any chest pain, SOA, palpitations, dizziness, diaphoresis, or nausea/vomiting. PAST MEDICAL HISTORY Cardiovascular: AFIB (Paroxysmal ), CAD (PCI/BMS to RCA), CHF (Prior mixed ischemic/NICM, resolved with EF prev <35% and then most recently with EF > 55%) , HTN, Hyperlipidemia Pulmonary: Other (ROSEI) CENTRAL NERVOUS SYSTEM: CVA, Periperal neuropathy, Other (Jhaveri's Palsy) GI: GERD Heme/Onc: No pertinent hx, Other (DVT) Hepatobiliary: No pertinent hx Psych: Addictions (ETOH) Musculoskeletal: Osteoarthritis Rheumatologic: No pertinent hx Infectious disease: No pertinent hx ENT: No pertinent hx Renal/: Benign prostatic enlarg. Dermatology: No pertinent hx PAST SURGICAL HISTORY Past Surgical History: Pacemaker (AICD (Medtronic)), Hernia Repair, Other ( Pacemaker (AICD 2014- Medtronic), Cataract Removal (bilateral ), Hernia Repair ( bilateral hernia repair ventral), Other (EVAR repair aortic aneuysm, R common iliac artery aneursym; back surgery x 2, HH surgery) FAMILY HISTORY Family History: Cancer (colon), Heart Disease (father ) SOCIAL HISTORY Smoke: <1 pack per day ALCOHOL: heavy Drugs: None Lives: Alone CURRENT MEDICATIONS CURRENT MEDICATIONS Current Medications Medications (Trade) Dose Ordered Sig/Alma Rosa Route PRN Reason Start Time Stop Time Status Last Admin Dose Admin Methylprednisolone Sodium Succinate (SOLU-Medrol 40MG VIAL) 60 mg DAILY08 IV 08/19/18 08:00 08/19/18 10:28 DC 08/19/18 07:46 Info (Anti-Coagulation Monitoring By Pharmacy) 1 each PRN DAILY PRN MC SEE COMMENTS 08/18/18 12:15 08/19/18 08:01 Quetiapine Fumarate (SEROquel) 25 mg 1X ONCE PO 08/18/18 22:45 08/18/18 22:46 DC 08/18/18 23:37 Quetiapine Fumarate (SEROquel) 25 mg ONCE ONCE PO 08/19/18 08:00 08/19/18 08:01 DC 08/19/18 07:48 Lorazepam (Ativan) 0.5 mg 1X ONCE IV 08/18/18 22:45 08/18/18 22:46 DC 08/18/18 23:39 ALLERGIES ALLERGIES: Coded Allergies: Iodinated Contrast- Oral and IV Dye (Verified Allergy, Severe, anaphalaxis , short of air, 06/06/15) adhesive (Verified Allergy, Severe, PAINFUL SKIN IRRITATION , 06/06/15) latex (Verified Allergy, Intermediate, Hives, 06/06/15) ROS Review of System unobtainable PHYSICAL EXAM General: Alert (slightly drowsy), No acute distress, Other (oriented to person only.) HEENT: Atraumatic, Mucous membr. moist/pink Lungs: Clear to auscultation Heart: Regular rate, Normal S1, Normal S2, Other (tele SR with frequent PAC's and PVC's) Abdomen: Soft Extremities: No edema, Normal pulses Skin: No breakdown, No significant lesion Neuro: Normal speech, Sensation intact Psych/Mental Status: Mood NL MUSCULOSKELETAL: Osteoarthritic changes both hands VITALS VITALS Vital Signs Date Time Temp Pulse Resp B/P (MAP) Pulse Ox O2 Delivery O2 Flow Rate FiO2 08/19/18 08:00 Room Air 08/19/18 07:59 94 08/19/18 07:54 98 152/78 08/19/18 07:00 97.6 18 97.6 08/19/18 00:37 2.0 LABS Lab: Laboratory Tests Test 08/18/18 20:08 08/18/18 21:40 08/19/18 03:15 08/19/18 07:50 Glucose (Fingerstick) 124 mg/dL (70-99) White Blood Count 10.0 x10^3/uL (4.0-11.0) 10.2 x10^3/uL (4.0-11.0) Red Blood Count 4.30 x10^6/uL (4.30-5.70) 4.31 x10^6/uL (4.30-5.70) Hemoglobin 13.8 g/dL (13.0-17.5) 14.0 g/dL (13.0-17.5) Hematocrit 41.0 % (39.0-53.0) 41.2 % (39.0-53.0) Mean Corpuscular Volume 95 fL (79-100) 96 fL (79-100) Mean Corpuscular Hemoglobin 32 pg (25-35) 33 pg (25-35) Mean Corpuscular Hemoglobin Concent 34 g/dL (31-37) 34 g/dL (31-37) Red Cell Distribution Width 14.6 % (11.5-14.5) 14.5 % (11.5-14.5) Platelet Count 242 x10^3/uL (140-400) 229 x10^3/uL (140-400) Neutrophils (%) (Auto) 79 % (31-73) 66 % (31-73) Lymphocytes (%) (Auto) 10 % (24-48) 23 % (24-48) Monocytes (%) (Auto) 10 % (0-9) 11 % (0-9) Eosinophils (%) (Auto) 0 % (0-3) 0 % (0-3) Basophils (%) (Auto) 0 % (0-3) 0 % (0-3) Neutrophils # (Auto) 7.9 x10^3uL (1.8-7.7) 6.7 x10^3uL (1.8-7.7) Lymphocytes # (Auto) 1.0 x10^3/uL (1.0-4.8) 2.3 x10^3/uL (1.0-4.8) Monocytes # (Auto) 1.0 x10^3/uL (0.0-1.1) 1.1 x10^3/uL (0.0-1.1) Eosinophils # (Auto) 0.0 x10^3/uL (0.0-0.7) 0.0 x10^3/uL (0.0-0.7) Basophils # (Auto) 0.0 x10^3/uL (0.0-0.2) 0.0 x10^3/uL (0.0-0.2) Sodium Level 143 mmol/L (136-145) 144 mmol/L (136-145) Potassium Level 3.9 mmol/L (3.5-5.1) 3.7 mmol/L (3.5-5.1) Chloride Level 105 mmol/L (98-107) 105 mmol/L (98-107) Carbon Dioxide Level 32 mmol/L (21-32) 32 mmol/L (21-32) Anion Gap 6 (6-14) 7 (6-14) Blood Urea Nitrogen 16 mg/dL (8-26) 13 mg/dL (8-26) Creatinine 1.3 mg/dL (0.7-1.3) 1.2 mg/dL (0.7-1.3) Estimated GFR (Cockcroft-Gault) 64.9 71.2 Glucose Level 104 mg/dL (70-99) 79 mg/dL (70-99) Calcium Level 8.7 mg/dL (8.5-10.1) 8.7 mg/dL (8.5-10.1) Magnesium Level 2.1 mg/dL (1.8-2.4) Troponin I Quantitative 0.146 ng/mL (0.000-0.055) 0.072 ng/mL (0.000-0.055) CX-Fqb-J-Type Natriuretic Peptide 2223 pg/mL (0-449) O2 Saturation 93 % (92-99) Arterial Blood pH 7.46 (7.35-7.45) Arterial Blood pCO2 at Patient Temp 34 mmHg (35-46) Arterial Blood pO2 at Patient Temp 61 mmHg (65-108) Arterial Blood HCO3 24 mmol/L (21-28) Arterial Blood Base Excess 0 mmol/L (-3-3) FiO2 21 ECHOCARDIOGRAM ECHOCARDIOGRAM <Conclusion> Left ventricle systolic function is normal. The Ejection Fraction is 55%. There is normal LV segmental wall motion. There is a pacemake/ICDr lead seen in the RV/RA. DATE: 02/15/17 1221 STRESS TEST STRESS TEST Conclusion 1. Paced rhythm. 2. Nuclear imaging shows no reversible ischemia. 3. Nuclear imaging shows mild fixed thinning of the inferior wall consistent with an attenuation defect. 4. Normal LV systolic function with an ejection fraction of 60%. 5. Moderately low risk Lexiscan stress test with no reversible ischemia and an ejection fraction of 60%. 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 Right coronary lesion intervened upon today does not fully explain the extent of cardiomyopathy. Tracheal optimize medical therapy including beta mason and RONA inhibitor statin and aspirin. DATE: 01/06/14 1313 ASSESSMENT/PLAN ASSESSMENT/PLAN 1. NSTEMI; peak 0.146 in the setting of PNA, lactic acidosis, and accelerated hypertension. CP free 2. Paroxysmal AFIB; rate well controlled. Presently SR with frequent PAC's and PVC's. on Xarelto for stroke prevention 3. CAD; s/p PCI/BMS to RCA. recent MPI without evidence of reversible ischemia. Stable. CP free 4. Prior mixed ischemic/NICM; s/p AICD (resolved with EF prev <35% and then most recently with EF > 55% (02/02). Most recent device check showed normal function and stable impedances. AT/AF <0.1%. Battery life 4.9 years. 5. Metabolic encephalopathy; ? ETOH withdrawal. CT head negative for acute changes 6. Lactic acidosis, PNA; antibiotic therapy. ID following 7. Acute respiratory failure secondary AE COPD/PNA/bronchiectasis/ LLL mucous plug; as per pulm 8. Accelerated hypertension; remains mildly elevated 9. Hyperlipidemia; statin 10. Alcohol abuse; per family 11. H/o aortic aneurysm and right common iliac artery aneurysm repair Recommendations Check Mg, TSH, lipids Interrogate device Check echo to assess LV systolic function/presence of WMA Continue digoxin and metoprolol for rate control Increase lisinopril for better BP control. Xarelto for stroke prevention ETOH withdrawal as per PCP MARCIN NICHOLE APRN Aug 19, 2018 11:10
[2018-08-19] MEDS: MULTIVITAMIN with MINERAL TABLET. PO SCH (12:23)
[2018-08-19] MEDS: THIAMINE 100 MG TABLET. PO SCH (12:23)
--- NOTE | 2018-08-19 13:36 | PDOC ---
PULMONARY PROGRESS NOTES Subjective no cough/ soa was confused yesterday, better now Vitals Vital Signs Date Time Temp Pulse Resp B/P (MAP) Pulse Ox O2 Delivery O2 Flow Rate FiO2 08/19/18 11:19 97 Room Air 08/19/18 11:00 99.0 87 16 145/104 (118) 99.0 08/19/18 00:37 2.0 General: Alert, No acute distress Lungs: Clear Cardiovascular: S1 Abdomen: Soft Neuro Exam: Alert Extremities: No Edema Labs Laboratory Tests Test 08/17/18 16:27 08/17/18 20:16 08/18/18 08:02 08/18/18 20:08 Glucose (Fingerstick) 141 mg/dL (70-99) 159 mg/dL (70-99) 97 mg/dL (70-99) 124 mg/dL (70-99) Test 08/18/18 21:40 08/19/18 03:15 08/19/18 07:50 White Blood Count 10.0 x10^3/uL (4.0-11.0) 10.2 x10^3/uL (4.0-11.0) Red Blood Count 4.30 x10^6/uL (4.30-5.70) 4.31 x10^6/uL (4.30-5.70) Hemoglobin 13.8 g/dL (13.0-17.5) 14.0 g/dL (13.0-17.5) Hematocrit 41.0 % (39.0-53.0) 41.2 % (39.0-53.0) Mean Corpuscular Volume 95 fL (79-100) 96 fL (79-100) Mean Corpuscular Hemoglobin 32 pg (25-35) 33 pg (25-35) Mean Corpuscular Hemoglobin Concent 34 g/dL (31-37) 34 g/dL (31-37) Red Cell Distribution Width 14.6 % (11.5-14.5) 14.5 % (11.5-14.5) Platelet Count 242 x10^3/uL (140-400) 229 x10^3/uL (140-400) Neutrophils (%) (Auto) 79 % (31-73) 66 % (31-73) Lymphocytes (%) (Auto) 10 % (24-48) 23 % (24-48) Monocytes (%) (Auto) 10 % (0-9) 11 % (0-9) Eosinophils (%) (Auto) 0 % (0-3) 0 % (0-3) Basophils (%) (Auto) 0 % (0-3) 0 % (0-3) Neutrophils # (Auto) 7.9 x10^3uL (1.8-7.7) 6.7 x10^3uL (1.8-7.7) Lymphocytes # (Auto) 1.0 x10^3/uL (1.0-4.8) 2.3 x10^3/uL (1.0-4.8) Monocytes # (Auto) 1.0 x10^3/uL (0.0-1.1) 1.1 x10^3/uL (0.0-1.1) Eosinophils # (Auto) 0.0 x10^3/uL (0.0-0.7) 0.0 x10^3/uL (0.0-0.7) Basophils # (Auto) 0.0 x10^3/uL (0.0-0.2) 0.0 x10^3/uL (0.0-0.2) Sodium Level 143 mmol/L (136-145) 144 mmol/L (136-145) Potassium Level 3.9 mmol/L (3.5-5.1) 3.7 mmol/L (3.5-5.1) Chloride Level 105 mmol/L (98-107) 105 mmol/L (98-107) Carbon Dioxide Level 32 mmol/L (21-32) 32 mmol/L (21-32) Anion Gap 6 (6-14) 7 (6-14) Blood Urea Nitrogen 16 mg/dL (8-26) 13 mg/dL (8-26) Creatinine 1.3 mg/dL (0.7-1.3) 1.2 mg/dL (0.7-1.3) Estimated GFR (Cockcroft-Gault) 64.9 71.2 Glucose Level 104 mg/dL (70-99) 79 mg/dL (70-99) Calcium Level 8.7 mg/dL (8.5-10.1) 8.7 mg/dL (8.5-10.1) Magnesium Level 2.1 mg/dL (1.8-2.4) Troponin I Quantitative 0.146 ng/mL (0.000-0.055) 0.072 ng/mL (0.000-0.055) JT-Dei-M-Type Natriuretic Peptide 2223 pg/mL (0-449) O2 Saturation 93 % (92-99) Arterial Blood pH 7.46 (7.35-7.45) Arterial Blood pCO2 at Patient Temp 34 mmHg (35-46) Arterial Blood pO2 at Patient Temp 61 mmHg (65-108) Arterial Blood HCO3 24 mmol/L (21-28) Arterial Blood Base Excess 0 mmol/L (-3-3) FiO2 21 Laboratory Tests Test 08/18/18 20:08 08/18/18 21:40 08/19/18 03:15 08/19/18 07:50 Glucose (Fingerstick) 124 mg/dL (70-99) White Blood Count 10.0 x10^3/uL (4.0-11.0) 10.2 x10^3/uL (4.0-11.0) Red Blood Count 4.30 x10^6/uL (4.30-5.70) 4.31 x10^6/uL (4.30-5.70) Hemoglobin 13.8 g/dL (13.0-17.5) 14.0 g/dL (13.0-17.5) Hematocrit 41.0 % (39.0-53.0) 41.2 % (39.0-53.0) Mean Corpuscular Volume 95 fL (79-100) 96 fL (79-100) Mean Corpuscular Hemoglobin 32 pg (25-35) 33 pg (25-35) Mean Corpuscular Hemoglobin Concent 34 g/dL (31-37) 34 g/dL (31-37) Red Cell Distribution Width 14.6 % (11.5-14.5) 14.5 % (11.5-14.5) Platelet Count 242 x10^3/uL (140-400) 229 x10^3/uL (140-400) Neutrophils (%) (Auto) 79 % (31-73) 66 % (31-73) Lymphocytes (%) (Auto) 10 % (24-48) 23 % (24-48) Monocytes (%) (Auto) 10 % (0-9) 11 % (0-9) Eosinophils (%) (Auto) 0 % (0-3) 0 % (0-3) Basophils (%) (Auto) 0 % (0-3) 0 % (0-3) Neutrophils # (Auto) 7.9 x10^3uL (1.8-7.7) 6.7 x10^3uL (1.8-7.7) Lymphocytes # (Auto) 1.0 x10^3/uL (1.0-4.8) 2.3 x10^3/uL (1.0-4.8) Monocytes # (Auto) 1.0 x10^3/uL (0.0-1.1) 1.1 x10^3/uL (0.0-1.1) Eosinophils # (Auto) 0.0 x10^3/uL (0.0-0.7) 0.0 x10^3/uL (0.0-0.7) Basophils # (Auto) 0.0 x10^3/uL (0.0-0.2) 0.0 x10^3/uL (0.0-0.2) Sodium Level 143 mmol/L (136-145) 144 mmol/L (136-145) Potassium Level 3.9 mmol/L (3.5-5.1) 3.7 mmol/L (3.5-5.1) Chloride Level 105 mmol/L (98-107) 105 mmol/L (98-107) Carbon Dioxide Level 32 mmol/L (21-32) 32 mmol/L (21-32) Anion Gap 6 (6-14) 7 (6-14) Blood Urea Nitrogen 16 mg/dL (8-26) 13 mg/dL (8-26) Creatinine 1.3 mg/dL (0.7-1.3) 1.2 mg/dL (0.7-1.3) Estimated GFR (Cockcroft-Gault) 64.9 71.2 Glucose Level 104 mg/dL (70-99) 79 mg/dL (70-99) Calcium Level 8.7 mg/dL (8.5-10.1) 8.7 mg/dL (8.5-10.1) Magnesium Level 2.1 mg/dL (1.8-2.4) Troponin I Quantitative 0.146 ng/mL (0.000-0.055) 0.072 ng/mL (0.000-0.055) DF-Wit-D-Type Natriuretic Peptide 2223 pg/mL (0-449) O2 Saturation 93 % (92-99) Arterial Blood pH 7.46 (7.35-7.45) Arterial Blood pCO2 at Patient Temp 34 mmHg (35-46) Arterial Blood pO2 at Patient Temp 61 mmHg (65-108) Arterial Blood HCO3 24 mmol/L (21-28) Arterial Blood Base Excess 0 mmol/L (-3-3) FiO2 21 Medications Active Scripts Medications Dose Route/Sig Max Daily Dose Days Date Category Dose Instructions Duoneb 0.5-3(2.5) Mg/3 Ml (Albuterol/Ipratropium) 3 Ml Ampul.neb 3 Ml NEB QIDPRN PRN 08/16/18 Reported Remeron (Mirtazapine) 15 Mg Tablet 1 Tab PO QHS 08/16/18 Reported Proair Hfa Inhaler (Albuterol Sulfate) 8.5 Gm Hfa.aer.ad 1 Puff INH PRN Q6HRS PRN 07/01/18 Rx Benadryl (Diphenhydramine Hcl) 25 Mg Capsule 2 Cap PO Q6HRS PRN 02/24/17 Rx Tamsulosin Hcl 0.4 Mg Cap.er.24h 1 Cap PO HS 02/14/17 Reported Metoprolol Succinate ( Xl ) (Metoprolol Succinate) 25 Mg Tab.er.24h 1 Tab PO DAILY 02/14/17 Reported Trazodone Hcl 50 Mg Tablet 2 Tab PO HS 03/26/15 Reported 100 mg @ HS Xarelto (Rivaroxaban) 15 Mg Tablet 20 Mg PO HS 03/26/15 Reported Simvastatin 20 Mg Tablet 1 Tab PO QHS 10/18/14 Reported Lisinopril 5 Mg Tablet 2.5 Mg PO DAILY 01/29/14 Reported Gabapentin 300 Mg Capsule 300 Mg PO PRN TID PRN 01/29/14 Reported can take 1 or 2 capsules Plavix (Clopidogrel Bisulfate) 75 Mg Tablet 75 Mg PO DAILY 01/29/14 Reported Digoxin 125 Mcg Tablet 125 Mcg PO DAILY 01/29/14 Reported Impression . 1. Clinical pneumonia. 2. Acute exacerbation of chronic obstructive pulmonary disease. resolved 3. Tobacco dependent. 4. Acute purulent bronchitis. 5. ETOH abuse, encephalopathy, resolved 6. CT chest reviewed. bronchiectasis/ LLL mucous plug Plan . 1. CT chest reviewed. bronchiectasis/ LLL mucous plug/ pulmonary toilet 2. Tessalon Perles. 3. dc Steroids 4. Continue antibiotics. 5. Pepcid for possible reflux. 6. d/w VERONICA HOLDER MD Aug 19, 2018 13:36
[2018-08-19 15:20] VITALS: BP 151/109
--- NOTE | 2018-08-19 16:03 | PDOC2 ---
NEUROLOGY CONSULT Date of Admission Date of Admission DATE: 08/19/18 TIME: 15:50 Reason for Consult Reason for Consult: Altered mental status, history of transient ischemic attacks Referring Physician Referring Physician: Dr. Olivas Source Source: Caregiver (sister), Chart review, Patient History of Present Illness History of Present Illness The patient is a 78-year-old right-handed male admitted for chronic obstructive pulmonary disease exacerbation, pneumonia, possible sepsis. He has been confused here in the hospital. Yesterday morning he was very agitated and tried to leave. There was some cardiac arrhythmia. He was given a single dose of Ativan and has been better since. I have seen him in the past, last visit 2 years ago, for memory loss, peripheral neuropathy, and chronic back pain. He has had a positive antinuclear antibody test in the past. Spoke to his sister who says the patient is usually on his own with a roommate. He does drink a lot of alcohol but has had nothing to drink in the past week. There is no history of seizure or withdrawal. 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 The patient denies any head injury. Past Medical History Cardiovascular: AFIB, CAD, CHF, HTN, [place], Hyperlipidemia, Other (abdominal aortic aneurysm) Pulmonary: Bronchitis, COPD CENTRAL NERVOUS SYSTEM: CVA, Periperal neuropathy (idiopathic, but has had positive ANAs and past), Other (Jhaveri's palsy) GI: Constipation, GERD Musculoskeletal: low back pain Renal/: Benign prostatic enlarg. Past Surgical History Past Surgical History: Pacemaker (defibrillator), CABG, Cataract Removal, Hernia Repair (hiatal and inguinal), Other (lumbar, coronary stent, repair of esophageal tear, knee, AAA repair) Family History Family History: Cancer Social History Social History , occasionally drinks alcohol heavily but not in the past week, occasional tobacco use, retired Current Medications Current Medications Current Medications Albuterol Sulfate (Ventolin Neb Soln) 2.5 mg STK-MED ONCE .ROUTE ; Start at 02:00; Stop 08/16/18 at 02:01; Status DC Ipratropium [place] (Atrovent) 0.5 mg STK-MED ONCE .ROUTE ; Start 08/16/18 at 02:00; Stop 08/16/18 at 02:01; Status DC Sodium Chloride 1,000 ml @ 100 mls/hr Q10H IV Last administered on 08/16/18at 02:24; Start 08/16/18 at 02:30; Stop 08/16/18 at 12:29; Status DC Methylprednisolone Sodium Succinate (SOLU-Medrol 125MG VIAL) 125 mg 1X ONCE IV Last administered on 08/16/18at 02:24; Start 08/16/18 at 02:30; Stop at 02:31; Status DC Albuterol Sulfate (Ventolin Neb Soln) 10 mg 1X ONCE CONT NEB Last administered on 08/16/18at 02:06; Start 08/16/18 at 02:00; Stop 08/16/18 at 02 :09; Status DC Ipratropium [place] (Atrovent) 0.5 mg 1X ONCE NEB Last administered on at 02:06; Start 08/16/18 at 02:00; Stop 08/16/18 at 02:09; Status DC Sodium Chloride 1,000 ml @ 100 mls/hr Q10H IV Last administered on 08/17/18at 01:24; Start 08/16/18 at 04:18; Stop 08/17/18 at 04:17; Status DC Acetaminophen (Tylenol) 650 mg PRN Q4HRS PRN PO FEVER; Start 08/16/18 at 04:30 ; Stop 08/16/18 at 09:03; Status DC Albuterol/ Ipratropium (Duoneb) 3 ml RTQID NEB ; Start 08/16/18 at 08:00; Stop 08/16/18 at 09:04; Status DC Clopidogrel Bisulfate (Plavix) 75 mg DAILY PO Last administered on 08/19/18at 08 :00; Start 08/16/18 at 09:00 Digoxin (Lanoxin) 125 mcg DAILY PO Last administered on 08/19/18at 07:48; Start 08/16/18 at 09:00 Diphenhydramine HCl (Benadryl) 50 mg PRN Q6HRS PRN PO ITCHING Last administered on 08/18/18at 23:38; Start 08/16/18 at 08:45 Albuterol Sulfate (Ventolin Neb Soln) 2.5 mg PRN Q6HRS PRN NEB SHORTNESS OF BREATH; Start 08/16/18 at 09:15 Metoprolol Succinate (Toprol Xl) 25 mg DAILY PO Last administered on 08/19/18at 07:47; Start 08/16/18 at 09:00 Rivaroxaban (Xarelto) 20 mg DAILYWSUP PO Last administered on 08/18/18at 17:48 ; Start 08/16/18 at 17:00 Tamsulosin HCl (Flomax) 0.4 mg HS PO Last administered on 08/18/18at 23:38; Start 08/16/18 at 21:00 Trazodone HCl (Desyrel) 100 mg HS PO Last administered on 08/18/18at 23:37; Start 08/16/18 at 21:00 Non-Formulary Medication (Albuterol Sulfate (Proair Hfa Inhaler)) 1 puff PRN Q6HRS PRN INH SHORTNESS OF BREATH; Start 08/16/18 at 08:45; Status UNV Gabapentin (Neurontin) 300 mg PRN TID PRN PO NERVE PAIN; Start 08/16/18 at 09: 00 Lisinopril (Prinivil) 2.5 mg DAILY PO Last administered on 08/19/18at 07:54; Start 08/16/18 at 09:00; Stop 08/19/18 at 15:03; Status DC Mirtazapine (Remeron) 15 mg QHS PO Last administered on 08/18/18at 23:38; Start 08/16/18 at 21:00 Simvastatin (Zocor) 20 mg HS PO Last administered on 08/18/18at 23:36; Start 08/16/18 at 21:00 Clopidogrel Bisulfate (Plavix) 75 mg DAILY PO ; Start 08/16/18 at 09:00; Status UNV Digoxin (Lanoxin) 125 mcg DAILY PO ; Start 08/16/18 at 09:00; Status UNV Metoprolol Succinate (Toprol Xl) 25 mg DAILY PO ; Start 08/16/18 at 09:00; Status UNV Rivaroxaban (Xarelto) 20 mg HS PO ; Start 08/16/18 at 21:00; Status UNV Tamsulosin HCl (Flomax) 0.4 mg HS PO ; Start 08/16/18 at 21:00; Status UNV Trazodone HCl (Desyrel) 100 mg HS PO ; Start 08/16/18 at 21:00; Status UNV Non-Formulary Medication (Gabapentin ) 300 mg PRN TID PRN PO PAIN; Start 08/16 at 09:00; Status UNV Non-Formulary Medication (Lisinopril ) 2.5 mg DAILY PO ; Start 08/16/18 at 09: 00; Status UNV Non-Formulary Medication (Mirtazapine (Remeron)) 1 tab QHS PO ; Start 08/16/18 at 21:00; Status UNV Non-Formulary Medication (Simvastatin ) 1 tab QHS PO ; Start 08/16/18 at 21:00 ; Status UNV Methylprednisolone Sodium Succinate (SOLU-Medrol 40MG VIAL) 60 mg BID92 IV Last administered on 08/18/18at 09:18; Start 08/16/18 at 09:30; Stop 08/18/18 at 10:22; Status DC Acetaminophen (Tylenol) 650 mg PRN Q6HRS PRN PO MILD PAIN / TEMP; Start at 09:00 Oxycodone HCl (Roxicodone) 20 mg TID PO Last administered on 08/19/18at 14:32; Start 08/16/18 at 09:30 Albuterol/ Ipratropium (Duoneb) 3 ml RTQID NEB Last administered on 08/19/18at 15:20; Start 08/16/18 at 12:00 Levofloxacin/ Dextrose 100 ml @ 100 mls/hr Q24H IV Last administered on at 09:49; Start 08/16/18 at 10:00; Stop 08/17/18 at 10:07; Status DC Piperacillin Sod/ Tazobactam Sod 3.375 gm/Sodium Chloride 50 ml @ 100 mls/hr Q6HRS IV Last administered on 08/19/18at 12:24; Start 08/16/18 at 12:00; Stop 08/19/18 at 13:47; Status DC Linezolid (Zyvox) 600 mg BID PO Last administered on 08/17/18at 08:24; Start 08/16/18 at 11:30; Stop 08/17/18 at 10:07; Status DC Lactobacillus Rhamnosus (Culturelle) 1 cap BID PO Last administered on at 07:48; Start 08/16/18 at 21:00 Pantoprazole Sodium (Protonix) 40 mg DAILYAC PO Last administered on 08/19/18at 07:48; Start 08/17/18 at 14:00 Polyethylene Glycol (miraLAX PACKET) 17 gm DAILY PO ; Start 08/18/18 at 11:00 Methylprednisolone Sodium Succinate (SOLU-Medrol 40MG VIAL) 60 mg DAILY08 IV Last administered on 08/19/18at 07:46; Start 08/19/18 at 08:00; Stop 08/19/18 at 10:28; Status DC Info (Anti-Coagulation Monitoring By Pharmacy) 1 each PRN DAILY PRN MC SEE COMMENTS Last administered on 08/19/18at 08:01; Start 08/18/18 at 12:15 Quetiapine Fumarate (SEROquel) 25 mg 1X ONCE PO Last administered on at 23:37; Start 08/18/18 at 22:45; Stop 08/18/18 at 22:46; Status DC Quetiapine Fumarate (SEROquel) 25 mg ONCE ONCE PO Last administered on at 07:48; Start 08/19/18 at 08:00; Stop 08/19/18 at 08:01; Status DC Lorazepam (Ativan) 0.5 mg 1X ONCE IV Last administered on 08/18/18at 23:39; Start 08/18/18 at 22:45; Stop 08/18/18 at 22:46; Status DC Lorazepam (Ativan) 0.5 mg PRN Q6HRS PRN IV ANXIETY / AGITATION; Start at 22:30 Thiamine Mononitrate (Vitamin B-1) 100 mg DAILY PO Last administered on at 12:23; Start 08/19/18 at 11:00 Multivitamins (Thera M Plus) 1 tab DAILY PO Last administered on 08/19/18at 12: 23; Start 08/19/18 at 11:00 Amoxicillin/ Clavulanate Potassium (Augmentin 875/ 125mg) 1 tab BID PO ; Start 08/19/18 at 21:00 Lisinopril (Prinivil) 10 mg DAILY PO ; Start 08/20/18 at 09:00 Active Scripts Active Proair Hfa Inhaler (Albuterol Sulfate) 8.5 Gm Hfa.aer.ad 1 Puff INH PRN Q6HRS PRN Benadryl (Diphenhydramine Hcl) 25 Mg Capsule 2 Cap PO Q6HRS PRN Reported Duoneb 0.5-3(2.5) Mg/3 Ml (Albuterol/Ipratropium) 3 Ml Ampul.neb 3 Ml NEB QIDPRN PRN Remeron (Mirtazapine) 15 Mg Tablet 1 Tab PO QHS Tamsulosin Hcl 0.4 Mg Cap.er.24h 1 Cap PO HS Metoprolol Succinate ( Xl ) (Metoprolol Succinate) 25 Mg Tab.er.24h 1 Tab PO DAILY Trazodone Hcl 50 Mg Tablet 2 Tab PO HS 100 mg @ HS Xarelto (Rivaroxaban) 15 Mg Tablet 20 Mg PO HS Simvastatin 20 Mg Tablet 1 Tab PO QHS Lisinopril 5 Mg Tablet 2.5 Mg PO DAILY Gabapentin 300 Mg Capsule 300 Mg PO PRN TID PRN can take 1 or 2 capsules Plavix (Clopidogrel Bisulfate) 75 Mg Tablet 75 Mg PO DAILY Digoxin 125 Mcg Tablet 125 Mcg PO DAILY Allergies Allergies: Coded Allergies: Iodinated Contrast- Oral and IV Dye (Verified Allergy, Severe, anaphalaxis , short of air, 06/06/15) adhesive (Verified Allergy, Severe, PAINFUL SKIN IRRITATION , 06/06/15) latex (Verified Allergy, Intermediate, Hives, 06/06/15) ROS Review of System Patient denies fevers, chills, weight loss,angina, abdominal pain, change in bowels, or dysuria. Positive for dyspnea. 14-point review of systems is negative. Physical Exam Physical Examination General: Well-developed, well-nourished, black male, in no acute distress HEENT: Normocephalic andatraumatic.Temporal arteriespulsatile and nontender. Neck: Supple without bruit, no meningismus Musculoskeletal: Stability:see neurologic. Gait exam:see neurologic. Tone:see neurologic. Strength:see neurologic. Neurological: Mental Status:orientation, memory, attention span/concentration, language, fund of knowledge: He knows the year, he knows that he is in the hospital, is not sure why he is here, names, repeats, comprehends well, speech is fluent. Cranial Nerves:Pupils equal and reactive to light, extraocular movements are intact, visual holt are full to confrontation. Facial sensation is normal. There is no facial asymmetry. Vestibulo-ocular reflex is intact. Palate elvates and tongue protrudes in midline. All other cranial related problems are negative except as mentioned before.Reflexes:1+ and symmetric with flexor plantar responses. Motor:5/5 strength with normal tone and bulk. Coordination: Finger-nose finger and ixbv-nq-hebx testing are normal. Rapid alternating movements and fine finger movements are intact. Gait:Stooped, antalgic favoring the back. Sensory:Stocking loss. Vitals VITALS Vital Signs Date Time Temp Pulse Resp B/P (MAP) Pulse Ox O2 Delivery O2 Flow Rate FiO2 08/19/18 15:40 18 97 Room Air 2.0 08/19/18 15:20 97.9 82 151/109 (123) 97.9 Labs Labs Laboratory Tests Test 08/17/18 16:27 08/17/18 20:16 08/18/18 08:02 08/18/18 20:08 Glucose (Fingerstick) 141 mg/dL (70-99) 159 mg/dL (70-99) 97 mg/dL (70-99) 124 mg/dL (70-99) Test 08/18/18 21:40 08/19/18 03:15 08/19/18 07:50 08/19/18 14:15 White Blood Count 10.0 x10^3/uL (4.0-11.0) 10.2 x10^3/uL (4.0-11.0) Red Blood Count 4.30 x10^6/uL (4.30-5.70) 4.31 x10^6/uL (4.30-5.70) Hemoglobin 13.8 g/dL (13.0-17.5) 14.0 g/dL (13.0-17.5) Hematocrit 41.0 % (39.0-53.0) 41.2 % (39.0-53.0) Mean Corpuscular Volume 95 fL (79-100) 96 fL (79-100) Mean Corpuscular Hemoglobin 32 pg (25-35) 33 pg (25-35) Mean Corpuscular Hemoglobin Concent 34 g/dL (31-37) 34 g/dL (31-37) Red Cell Distribution Width 14.6 % (11.5-14.5) 14.5 % (11.5-14.5) Platelet Count 242 x10^3/uL (140-400) 229 x10^3/uL (140-400) Neutrophils (%) (Auto) 79 % (31-73) 66 % (31-73) Lymphocytes (%) (Auto) 10 % (24-48) 23 % (24-48) Monocytes (%) (Auto) 10 % (0-9) 11 % (0-9) Eosinophils (%) (Auto) 0 % (0-3) 0 % (0-3) Basophils (%) (Auto) 0 % (0-3) 0 % (0-3) Neutrophils # (Auto) 7.9 x10^3uL (1.8-7.7) 6.7 x10^3uL (1.8-7.7) Lymphocytes # (Auto) 1.0 x10^3/uL (1.0-4.8) 2.3 x10^3/uL (1.0-4.8) Monocytes # (Auto) 1.0 x10^3/uL (0.0-1.1) 1.1 x10^3/uL (0.0-1.1) Eosinophils # (Auto) 0.0 x10^3/uL (0.0-0.7) 0.0 x10^3/uL (0.0-0.7) Basophils # (Auto) 0.0 x10^3/uL (0.0-0.2) 0.0 x10^3/uL (0.0-0.2) Sodium Level 143 mmol/L (136-145) 144 mmol/L (136-145) Potassium Level 3.9 mmol/L (3.5-5.1) 3.7 mmol/L (3.5-5.1) Chloride Level 105 mmol/L (98-107) 105 mmol/L (98-107) Carbon Dioxide Level 32 mmol/L (21-32) 32 mmol/L (21-32) Anion Gap 6 (6-14) 7 (6-14) Blood Urea Nitrogen 16 mg/dL (8-26) 13 mg/dL (8-26) Creatinine 1.3 mg/dL (0.7-1.3) 1.2 mg/dL (0.7-1.3) Estimated GFR (Cockcroft-Gault) 64.9 71.2 Glucose Level 104 mg/dL (70-99) 79 mg/dL (70-99) Calcium Level 8.7 mg/dL (8.5-10.1) 8.7 mg/dL (8.5-10.1) Magnesium Level 2.1 mg/dL (1.8-2.4) 2.3 mg/dL (1.8-2.4) Troponin I Quantitative 0.146 ng/mL (0.000-0.055) 0.072 ng/mL (0.000-0.055) 0.029 ng/mL (0.000-0.055) RE-Spp-C-Type Natriuretic Peptide 2223 pg/mL (0-449) Thyroid Stimulating Hormone (TSH) 0.227 uIU/mL (0.358-3.74) O2 Saturation 93 % (92-99) Arterial Blood pH 7.46 (7.35-7.45) Arterial Blood pCO2 at Patient Temp 34 mmHg (35-46) Arterial Blood pO2 at Patient Temp 61 mmHg (65-108) Arterial Blood HCO3 24 mmol/L (21-28) Arterial Blood Base Excess 0 mmol/L (-3-3) FiO2 21 Laboratory Tests Test 08/18/18 20:08 08/18/18 21:40 08/19/18 03:15 08/19/18 07:50 Glucose (Fingerstick) 124 mg/dL (70-99) White Blood Count 10.0 x10^3/uL (4.0-11.0) 10.2 x10^3/uL (4.0-11.0) Red Blood Count 4.30 x10^6/uL (4.30-5.70) 4.31 x10^6/uL (4.30-5.70) Hemoglobin 13.8 g/dL (13.0-17.5) 14.0 g/dL (13.0-17.5) Hematocrit 41.0 % (39.0-53.0) 41.2 % (39.0-53.0) Mean Corpuscular Volume 95 fL (79-100) 96 fL (79-100) Mean Corpuscular Hemoglobin 32 pg (25-35) 33 pg (25-35) Mean Corpuscular Hemoglobin Concent 34 g/dL (31-37) 34 g/dL (31-37) Red Cell Distribution Width 14.6 % (11.5-14.5) 14.5 % (11.5-14.5) Platelet Count 242 x10^3/uL (140-400) 229 x10^3/uL (140-400) Neutrophils (%) (Auto) 79 % (31-73) 66 % (31-73) Lymphocytes (%) (Auto) 10 % (24-48) 23 % (24-48) Monocytes (%) (Auto) 10 % (0-9) 11 % (0-9) Eosinophils (%) (Auto) 0 % (0-3) 0 % (0-3) Basophils (%) (Auto) 0 % (0-3) 0 % (0-3) Neutrophils # (Auto) 7.9 x10^3uL (1.8-7.7) 6.7 x10^3uL (1.8-7.7) Lymphocytes # (Auto) 1.0 x10^3/uL (1.0-4.8) 2.3 x10^3/uL (1.0-4.8) Monocytes # (Auto) 1.0 x10^3/uL (0.0-1.1) 1.1 x10^3/uL (0.0-1.1) Eosinophils # (Auto) 0.0 x10^3/uL (0.0-0.7) 0.0 x10^3/uL (0.0-0.7) Basophils # (Auto) 0.0 x10^3/uL (0.0-0.2) 0.0 x10^3/uL (0.0-0.2) Sodium Level 143 mmol/L (136-145) 144 mmol/L (136-145) Potassium Level 3.9 mmol/L (3.5-5.1) 3.7 mmol/L (3.5-5.1) Chloride Level 105 mmol/L (98-107) 105 mmol/L (98-107) Carbon Dioxide Level 32 mmol/L (21-32) 32 mmol/L (21-32) Anion Gap 6 (6-14) 7 (6-14) Blood Urea Nitrogen 16 mg/dL (8-26) 13 mg/dL (8-26) Creatinine 1.3 mg/dL (0.7-1.3) 1.2 mg/dL (0.7-1.3) Estimated GFR (Cockcroft-Gault) 64.9 71.2 Glucose Level 104 mg/dL (70-99) 79 mg/dL (70-99) Calcium Level 8.7 mg/dL (8.5-10.1) 8.7 mg/dL (8.5-10.1) Magnesium Level 2.1 mg/dL (1.8-2.4) 2.3 mg/dL (1.8-2.4) Troponin I Quantitative 0.146 ng/mL (0.000-0.055) 0.072 ng/mL (0.000-0.055) UD-Nvq-I-Type Natriuretic Peptide 2223 pg/mL (0-449) Thyroid Stimulating Hormone (TSH) 0.227 uIU/mL (0.358-3.74) O2 Saturation 93 % (92-99) Arterial Blood pH 7.46 (7.35-7.45) Arterial Blood pCO2 at Patient Temp 34 mmHg (35-46) Arterial Blood pO2 at Patient Temp 61 mmHg (65-108) Arterial Blood HCO3 24 mmol/L (21-28) Arterial Blood Base Excess 0 mmol/L (-3-3) FiO2 21 Test 08/19/18 14:15 Troponin I Quantitative 0.029 ng/mL (0.000-0.055) Images Images CT head without contrast Findings: Axial images of the head were obtained without contrast. Atrophy is present. Anterior left temporal encephalomalacia is similar to the previous exam. No midline shift or mass effect. No depressed fracture. Impression: Old left frontal lobe infarct. Assessment/Plan Assessment/Plan Impression: Metabolic encephalopathy, lung disease, possible sepsis Prior mild cognitive impairment which I diagnosed 2 years ago Prior left frontal stroke, also noted in my records from 2 years ago. 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 Thank you for letting me help with the patient's care. JON LIN MD Aug 19, 2018 16:03
[2018-08-19] MEDS: RIVAROXABAN 10 MG TABLET. PO SCH (17:47)
[2018-08-19 18:54] VITALS: BP 145/91
[2018-08-19] MEDS: traZODone 50 MG TABLET. PO SCH (20:45)
[2018-08-19] MEDS: TAMSULOSIN 0.4 MG CAP.ER.24H. PO SCH (20:45)
[2018-08-19] MEDS: MIRTAZAPINE 15 MG TABLET PO SCH (20:45)
[2018-08-19] MEDS: AMOXICILLIN/K CLAV 875/125MG TABLET. PO SCH (20:45)
[2018-08-19] MEDS: SIMVASTATIN 20 MG TABLET PO SCH (20:45)
[2018-08-19 23:00] VITALS: BP 151/98
[2018-08-20 03:41] VITALS: BP 139/90
[2018-08-20 05:15] LABS: BASO % 0 % (0-3); EOS # 0.1 x10^3/uL (0.0-0.7); EOS % 2 % (0-3); HEMATOCRIT 41.9 % (39.0-53.0); HEMOGLOBIN 14.1 g/dL (13.0-17.5); LYMPH # 2.5 x10^3/uL (1.0-4.8); LYMPH % 35 % (24-48); MEAN CORPUSCULAR HEMOGLOBIN 32 pg (25-35); MEAN CORPUSCULAR HGB CONC 34 g/dL (31-37); MEAN CORPUSCULAR VOLUME 95 fL (79-100); MONO # 0.8 x10^3/uL (0.0-1.1); MONO % 11 % (0-9); NEUT # 3.7 x10^3uL (1.8-7.7); NEUT % 52 % (31-73); PLATELET COUNT 228 x10^3/uL (140-400); RED BLOOD COUNT 4.43 x10^6/uL (4.30-5.70); RED CELL DISTRIBUTION WIDTH 14.6 % (11.5-14.5); WHITE BLOOD COUNT 7.2 x10^3/uL (4.0-11.0)
[2018-08-20 05:27] LABS: ALBUMIN 2.9 g/dL (3.4-5.0); ALBUMIN/GLOBULIN RATIO 0.9 (1.0-1.7); CALCIUM 8.4 mg/dL (8.5-10.1); GFR 87.9; POTASSIUM 3.2 mmol/L (3.5-5.1); TOTAL BILIRUBIN 0.5 mg/dL (0.2-1.0); TOTAL PROTEIN 6.1 g/dL (6.4-8.2)
[2018-08-20 05:30] LABS: CHOLESTEROL/HDL RATIO 2.1
[2018-08-20 07:36] VITALS: BP 136/91
[2018-08-20] MEDS ORDERED: POTASSIUM CHLORIDE 20 MEQ TABLET.ER. PO ONE (08:00)
[2018-08-20] MEDS: LACTOBACILLUS RHAMNOSUS GG 1 CAPSULE. PO SCH ×2 (08:55→20:41)
[2018-08-20] MEDS: AMOXICILLIN/K CLAV 875/125MG TABLET. PO SCH ×2 (08:55→20:41)
[2018-08-20] MEDS: MULTIVITAMIN with MINERAL TABLET. PO SCH (08:55)
--- NOTE | 2018-08-20 08:55 | EKG ---
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 POSSIBLY ABNORMAL ECG RI6.01 Compared to ECG 08/16/2018 02:16:04 Supraventricular rhythm no longer present Electronically Signed On 08-23-2018 12:38:38 HEALTHCARE FACILITY ADMINISTRATOR by Adriel Gao
[2018-08-20] MEDS: PANTOPRAZOLE 40 MG TABLET.DR. PO SCH (08:56)
[2018-08-20] MEDS: CLOPIDOGREL BISULFATE 75 MG TABLET PO SCH (08:56)
[2018-08-20] MEDS: THIAMINE 100 MG TABLET. PO SCH (08:56)
[2018-08-20] MEDS: DIGOXIN 125 MCG TABLET. PO SCH (08:57)
[2018-08-20] MEDS: POLYETHYLENE GLYCOL 3350 17 GM PACKET. PO SCH (08:57)
[2018-08-20] MEDS: LISINOPRIL 10 MG TABLET PO SCH (08:58)
[2018-08-20] MEDS: METOPROLOL SUCC 24HR ER 25 MG TAB.ER.24H. PO SCH (08:59)
--- NOTE | 2018-08-20 09:09 | PDOC ---
PROGRESS NOTES Assessment Metabolic encephalopathy, lung disease, possible sepsis. He is much better Prior mild cognitive impairment which I diagnosed 2 years ago Prior left frontal stroke, also noted in my records from 2 years ago. 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 Follow-up with neurology as needed. Subjective "I was really confused the other day," feeling better now Objective Vital Signs Date Time Temp Pulse Resp B/P (MAP) Pulse Ox O2 Delivery O2 Flow Rate FiO2 08/20/18 08:59 92 146/93 08/20/18 07:36 97.8 16 97 Room Air 97.8 08/19/18 15:40 2.0 Intake and Output 08/20/18 07:00 Intake Total 540 ml Output Total 1700 ml Balance -1160 ml Intake Oral 540 ml Output Urine Total 1700 ml # Voids 2 # Bowel Movements 4 PHYSICAL EXAM Alert. Oriented to time, place and person. PERRL. EOMI. CN: no focal findings. Muscle tone: normal. Muscle strength: 5/5 DTR: 1+ Plantar reflex: flexor Gait: not examined in bed. Sensory exam: stocking loss. No cerebellar signs elicited. Review of Relevant I have reviewed the following items mckayla (where applicable) has been applied. Labs Laboratory Tests Test 08/18/18 20:08 08/18/18 21:40 08/19/18 03:15 08/19/18 07:50 Glucose (Fingerstick) 124 mg/dL (70-99) White Blood Count 10.0 x10^3/uL (4.0-11.0) 10.2 x10^3/uL (4.0-11.0) Red Blood Count 4.30 x10^6/uL (4.30-5.70) 4.31 x10^6/uL (4.30-5.70) Hemoglobin 13.8 g/dL (13.0-17.5) 14.0 g/dL (13.0-17.5) Hematocrit 41.0 % (39.0-53.0) 41.2 % (39.0-53.0) Mean Corpuscular Volume 95 fL (79-100) 96 fL (79-100) Mean Corpuscular Hemoglobin 32 pg (25-35) 33 pg (25-35) Mean Corpuscular Hemoglobin Concent 34 g/dL (31-37) 34 g/dL (31-37) Red Cell Distribution Width 14.6 % (11.5-14.5) 14.5 % (11.5-14.5) Platelet Count 242 x10^3/uL (140-400) 229 x10^3/uL (140-400) Neutrophils (%) (Auto) 79 % (31-73) 66 % (31-73) Lymphocytes (%) (Auto) 10 % (24-48) 23 % (24-48) Monocytes (%) (Auto) 10 % (0-9) 11 % (0-9) Eosinophils (%) (Auto) 0 % (0-3) 0 % (0-3) Basophils (%) (Auto) 0 % (0-3) 0 % (0-3) Neutrophils # (Auto) 7.9 x10^3uL (1.8-7.7) 6.7 x10^3uL (1.8-7.7) Lymphocytes # (Auto) 1.0 x10^3/uL (1.0-4.8) 2.3 x10^3/uL (1.0-4.8) Monocytes # (Auto) 1.0 x10^3/uL (0.0-1.1) 1.1 x10^3/uL (0.0-1.1) Eosinophils # (Auto) 0.0 x10^3/uL (0.0-0.7) 0.0 x10^3/uL (0.0-0.7) Basophils # (Auto) 0.0 x10^3/uL (0.0-0.2) 0.0 x10^3/uL (0.0-0.2) Sodium Level 143 mmol/L (136-145) 144 mmol/L (136-145) Potassium Level 3.9 mmol/L (3.5-5.1) 3.7 mmol/L (3.5-5.1) Chloride Level 105 mmol/L (98-107) 105 mmol/L (98-107) Carbon Dioxide Level 32 mmol/L (21-32) 32 mmol/L (21-32) Anion Gap 6 (6-14) 7 (6-14) Blood Urea Nitrogen 16 mg/dL (8-26) 13 mg/dL (8-26) Creatinine 1.3 mg/dL (0.7-1.3) 1.2 mg/dL (0.7-1.3) Estimated GFR (Cockcroft-Gault) 64.9 71.2 Glucose Level 104 mg/dL (70-99) 79 mg/dL (70-99) Calcium Level 8.7 mg/dL (8.5-10.1) 8.7 mg/dL (8.5-10.1) Magnesium Level 2.1 mg/dL (1.8-2.4) 2.3 mg/dL (1.8-2.4) Troponin I Quantitative 0.146 ng/mL (0.000-0.055) 0.072 ng/mL (0.000-0.055) FV-Rit-N-Type Natriuretic Peptide 2223 pg/mL (0-449) Thyroid Stimulating Hormone (TSH) 0.227 uIU/mL (0.358-3.74) O2 Saturation 93 % (92-99) Arterial Blood pH 7.46 (7.35-7.45) Arterial Blood pCO2 at Patient Temp 34 mmHg (35-46) Arterial Blood pO2 at Patient Temp 61 mmHg (65-108) Arterial Blood HCO3 24 mmol/L (21-28) Arterial Blood Base Excess 0 mmol/L (-3-3) FiO2 21 Test 08/19/18 14:15 08/20/18 04:00 Troponin I Quantitative 0.029 ng/mL (0.000-0.055) White Blood Count 7.2 x10^3/uL (4.0-11.0) Red Blood Count 4.43 x10^6/uL (4.30-5.70) Hemoglobin 14.1 g/dL (13.0-17.5) Hematocrit 41.9 % (39.0-53.0) Mean Corpuscular Volume 95 fL (79-100) Mean Corpuscular Hemoglobin 32 pg (25-35) Mean Corpuscular Hemoglobin Concent 34 g/dL (31-37) Red Cell Distribution Width 14.6 % (11.5-14.5) Platelet Count 228 x10^3/uL (140-400) Neutrophils (%) (Auto) 52 % (31-73) Lymphocytes (%) (Auto) 35 % (24-48) Monocytes (%) (Auto) 11 % (0-9) Eosinophils (%) (Auto) 2 % (0-3) Basophils (%) (Auto) 0 % (0-3) Neutrophils # (Auto) 3.7 x10^3uL (1.8-7.7) Lymphocytes # (Auto) 2.5 x10^3/uL (1.0-4.8) Monocytes # (Auto) 0.8 x10^3/uL (0.0-1.1) Eosinophils # (Auto) 0.1 x10^3/uL (0.0-0.7) Basophils # (Auto) 0.0 x10^3/uL (0.0-0.2) Sodium Level 141 mmol/L (136-145) Potassium Level 3.2 mmol/L (3.5-5.1) Chloride Level 105 mmol/L (98-107) Carbon Dioxide Level 27 mmol/L (21-32) Anion Gap 9 (6-14) Blood Urea Nitrogen 14 mg/dL (8-26) Creatinine 1.0 mg/dL (0.7-1.3) Estimated GFR (Cockcroft-Gault) 87.9 BUN/Creatinine Ratio 14 (6-20) Glucose Level 78 mg/dL (70-99) Calcium Level 8.4 mg/dL (8.5-10.1) Total Bilirubin 0.5 mg/dL (0.2-1.0) Aspartate Amino Transf (AST/SGOT) 16 U/L (15-37) Alanine Aminotransferase (ALT/SGPT) 14 U/L (16-63) Alkaline Phosphatase 60 U/L (46-116) Total Protein 6.1 g/dL (6.4-8.2) Albumin 2.9 g/dL (3.4-5.0) Albumin/Globulin Ratio 0.9 (1.0-1.7) Triglycerides Level 88 mg/dL (0-150) Cholesterol Level 128 mg/dL (0-200) LDL Cholesterol, Calculated 49 mg/dL (0-100) VLDL Cholesterol, Calculated 18 mg/dL (0-40) Non-HDL Cholesterol Calculated 67 mg/dL (0-129) HDL Cholesterol 61 mg/dL (40-60) Cholesterol/HDL Ratio 2.1 Laboratory Tests Test 08/19/18 14:15 08/20/18 04:00 Troponin I Quantitative 0.029 ng/mL (0.000-0.055) White Blood Count 7.2 x10^3/uL (4.0-11.0) Red Blood Count 4.43 x10^6/uL (4.30-5.70) Hemoglobin 14.1 g/dL (13.0-17.5) Hematocrit 41.9 % (39.0-53.0) Mean Corpuscular Volume 95 fL (79-100) Mean Corpuscular Hemoglobin 32 pg (25-35) Mean Corpuscular Hemoglobin Concent 34 g/dL (31-37) Red Cell Distribution Width 14.6 % (11.5-14.5) Platelet Count 228 x10^3/uL (140-400) Neutrophils (%) (Auto) 52 % (31-73) Lymphocytes (%) (Auto) 35 % (24-48) Monocytes (%) (Auto) 11 % (0-9) Eosinophils (%) (Auto) 2 % (0-3) Basophils (%) (Auto) 0 % (0-3) Neutrophils # (Auto) 3.7 x10^3uL (1.8-7.7) Lymphocytes # (Auto) 2.5 x10^3/uL (1.0-4.8) Monocytes # (Auto) 0.8 x10^3/uL (0.0-1.1) Eosinophils # (Auto) 0.1 x10^3/uL (0.0-0.7) Basophils # (Auto) 0.0 x10^3/uL (0.0-0.2) Sodium Level 141 mmol/L (136-145) Potassium Level 3.2 mmol/L (3.5-5.1) Chloride Level 105 mmol/L (98-107) Carbon Dioxide Level 27 mmol/L (21-32) Anion Gap 9 (6-14) Blood Urea Nitrogen 14 mg/dL (8-26) Creatinine 1.0 mg/dL (0.7-1.3) Estimated GFR (Cockcroft-Gault) 87.9 BUN/Creatinine Ratio 14 (6-20) Glucose Level 78 mg/dL (70-99) Calcium Level 8.4 mg/dL (8.5-10.1) Total Bilirubin 0.5 mg/dL (0.2-1.0) Aspartate Amino Transf (AST/SGOT) 16 U/L (15-37) Alanine Aminotransferase (ALT/SGPT) 14 U/L (16-63) Alkaline Phosphatase 60 U/L (46-116) Total Protein 6.1 g/dL (6.4-8.2) Albumin 2.9 g/dL (3.4-5.0) Albumin/Globulin Ratio 0.9 (1.0-1.7) Triglycerides Level 88 mg/dL (0-150) Cholesterol Level 128 mg/dL (0-200) LDL Cholesterol, Calculated 49 mg/dL (0-100) VLDL Cholesterol, Calculated 18 mg/dL (0-40) Non-HDL Cholesterol Calculated 67 mg/dL (0-129) HDL Cholesterol 61 mg/dL (40-60) Cholesterol/HDL Ratio 2.1 Microbiology 08/16/18 Blood Culture - Preliminary, Resulted NO GROWTH AFTER 4 DAYS Medications Current Medications Albuterol Sulfate (Ventolin Neb Soln) 2.5 mg STK-MED ONCE .ROUTE ; Start at 02:00; Stop 08/16/18 at 02:01; Status DC Ipratropium [place] (Atrovent) 0.5 mg STK-MED ONCE .ROUTE ; Start 08/16/18 at 02:00; Stop 08/16/18 at 02:01; Status DC Sodium Chloride 1,000 ml @ 100 mls/hr Q10H IV Last administered on 08/16/18at 02:24; Start 08/16/18 at 02:30; Stop 08/16/18 at 12:29; Status DC Methylprednisolone Sodium Succinate (SOLU-Medrol 125MG VIAL) 125 mg 1X ONCE IV Last administered on 08/16/18at 02:24; Start 08/16/18 at 02:30; Stop at 02:31; Status DC Albuterol Sulfate (Ventolin Neb Soln) 10 mg 1X ONCE CONT NEB Last administered on 08/16/18at 02:06; Start 08/16/18 at 02:00; Stop 08/16/18 at 02 :09; Status DC Ipratropium [place] (Atrovent) 0.5 mg 1X ONCE NEB Last administered on at 02:06; Start 08/16/18 at 02:00; Stop 08/16/18 at 02:09; Status DC Sodium Chloride 1,000 ml @ 100 mls/hr Q10H IV Last administered on 08/17/18at 01:24; Start 08/16/18 at 04:18; Stop 08/17/18 at 04:17; Status DC Acetaminophen (Tylenol) 650 mg PRN Q4HRS PRN PO FEVER; Start 08/16/18 at 04:30 ; Stop 08/16/18 at 09:03; Status DC Albuterol/ Ipratropium (Duoneb) 3 ml RTQID NEB ; Start 08/16/18 at 08:00; Stop 08/16/18 at 09:04; Status DC Clopidogrel Bisulfate (Plavix) 75 mg DAILY PO Last administered on 08/20/18at 08 :56; Start 08/16/18 at 09:00 Digoxin (Lanoxin) 125 mcg DAILY PO Last administered on 08/20/18at 08:57; Start 08/16/18 at 09:00 Diphenhydramine HCl (Benadryl) 50 mg PRN Q6HRS PRN PO ITCHING Last administered on 08/18/18at 23:38; Start 08/16/18 at 08:45 Albuterol Sulfate (Ventolin Neb Soln) 2.5 mg PRN Q6HRS PRN NEB SHORTNESS OF BREATH; Start 08/16/18 at 09:15 Metoprolol Succinate (Toprol Xl) 25 mg DAILY PO Last administered on 08/20/18at 08:59; Start 08/16/18 at 09:00 Rivaroxaban (Xarelto) 20 mg DAILYWSUP PO Last administered on 08/19/18at 17:47; Start 08/16/18 at 17:00 Tamsulosin HCl (Flomax) 0.4 mg HS PO Last administered on 08/19/18at 20:45; Start 08/16/18 at 21:00 Trazodone HCl (Desyrel) 100 mg HS PO Last administered on 08/19/18at 20:45; Start 08/16/18 at 21:00 Non-Formulary Medication (Albuterol Sulfate (Proair Hfa Inhaler)) 1 puff PRN Q6HRS PRN INH SHORTNESS OF BREATH; Start 08/16/18 at 08:45; Status UNV Gabapentin (Neurontin) 300 mg PRN TID PRN PO NERVE PAIN; Start 08/16/18 at 09: 00 Lisinopril (Prinivil) 2.5 mg DAILY PO Last administered on 08/19/18at 07:54; Start 08/16/18 at 09:00; Stop 08/19/18 at 15:03; Status DC Mirtazapine (Remeron) 15 mg QHS PO Last administered on 08/19/18at 20:45; Start 08/16/18 at 21:00 Simvastatin (Zocor) 20 mg HS PO Last administered on 08/19/18at 20:45; Start at 21:00 Clopidogrel Bisulfate (Plavix) 75 mg DAILY PO ; Start 08/16/18 at 09:00; Status UNV Digoxin (Lanoxin) 125 mcg DAILY PO ; Start 08/16/18 at 09:00; Status UNV Metoprolol Succinate (Toprol Xl) 25 mg DAILY PO ; Start 08/16/18 at 09:00; Status UNV Rivaroxaban (Xarelto) 20 mg HS PO ; Start 08/16/18 at 21:00; Status UNV Tamsulosin HCl (Flomax) 0.4 mg HS PO ; Start 08/16/18 at 21:00; Status UNV Trazodone HCl (Desyrel) 100 mg HS PO ; Start 08/16/18 at 21:00; Status UNV Non-Formulary Medication (Gabapentin ) 300 mg PRN TID PRN PO PAIN; Start 08/16 at 09:00; Status UNV Non-Formulary Medication (Lisinopril ) 2.5 mg DAILY PO ; Start 08/16/18 at 09: 00; Status UNV Non-Formulary Medication (Mirtazapine (Remeron)) 1 tab QHS PO ; Start 08/16/18 at 21:00; Status UNV Non-Formulary Medication (Simvastatin ) 1 tab QHS PO ; Start 08/16/18 at 21:00 ; Status UNV Methylprednisolone Sodium Succinate (SOLU-Medrol 40MG VIAL) 60 mg BID92 IV Last administered on 08/18/18at 09:18; Start 08/16/18 at 09:30; Stop 08/18/18 at 10:22; Status DC Acetaminophen (Tylenol) 650 mg PRN Q6HRS PRN PO MILD PAIN / TEMP; Start at 09:00 Oxycodone HCl (Roxicodone) 20 mg TID PO Last administered on 08/19/18at 20:45; Start 08/16/18 at 09:30 Albuterol/ Ipratropium (Duoneb) 3 ml RTQID NEB Last administered on 08/19/18at 19:53; Start 08/16/18 at 12:00 Levofloxacin/ Dextrose 100 ml @ 100 mls/hr Q24H IV Last administered on at 09:49; Start 08/16/18 at 10:00; Stop 08/17/18 at 10:07; Status DC Piperacillin Sod/ Tazobactam Sod 3.375 gm/Sodium Chloride 50 ml @ 100 mls/hr Q6HRS IV Last administered on 08/19/18at 12:24; Start 08/16/18 at 12:00; Stop 08/19/18 at 13:47; Status DC Linezolid (Zyvox) 600 mg BID PO Last administered on 08/17/18at 08:24; Start 08/16/18 at 11:30; Stop 08/17/18 at 10:07; Status DC Lactobacillus Rhamnosus (Culturelle) 1 cap BID PO Last administered on at 08:55; Start 08/16/18 at 21:00 Pantoprazole Sodium (Protonix) 40 mg DAILYAC PO Last administered on 08/20/18at 08:56; Start 08/17/18 at 14:00 Polyethylene Glycol (miraLAX PACKET) 17 gm DAILY PO ; Start 08/18/18 at 11:00 Methylprednisolone Sodium Succinate (SOLU-Medrol 40MG VIAL) 60 mg DAILY08 IV Last administered on 08/19/18at 07:46; Start 08/19/18 at 08:00; Stop 08/19/18 at 10:28; Status DC Info (Anti-Coagulation Monitoring By Pharmacy) 1 each PRN DAILY PRN MC SEE COMMENTS Last administered on 08/19/18at 08:01; Start 08/18/18 at 12:15 Quetiapine Fumarate (SEROquel) 25 mg 1X ONCE PO Last administered on at 23:37; Start 08/18/18 at 22:45; Stop 08/18/18 at 22:46; Status DC Quetiapine Fumarate (SEROquel) 25 mg ONCE ONCE PO Last administered on at 07:48; Start 08/19/18 at 08:00; Stop 08/19/18 at 08:01; Status DC Lorazepam (Ativan) 0.5 mg 1X ONCE IV Last administered on 08/18/18at 23:39; Start 08/18/18 at 22:45; Stop 08/18/18 at 22:46; Status DC Lorazepam (Ativan) 0.5 mg PRN Q6HRS PRN IV ANXIETY / AGITATION; Start at 22:30 Thiamine Mononitrate (Vitamin B-1) 100 mg DAILY PO Last administered on at 08:56; Start 08/19/18 at 11:00 Multivitamins (Thera M Plus) 1 tab DAILY PO Last administered on 08/20/18at 08: 55; Start 08/19/18 at 11:00 Amoxicillin/ Clavulanate Potassium (Augmentin 875/ 125mg) 1 tab BID PO Last administered on 08/20/18at 08:55; Start 08/19/18 at 21:00 Lisinopril (Prinivil) 10 mg DAILY PO Last administered on 08/20/18at 08:58; Start 08/20/18 at 09:00 Potassium Chloride (Klor-Con) 40 meq 1X ONCE PO Last administered on at 08:56; Start 08/20/18 at 08:00; Stop 08/20/18 at 08:01; Status DC Active Scripts Active Proair Hfa Inhaler (Albuterol Sulfate) 8.5 Gm Hfa.aer.ad 1 Puff INH PRN Q6HRS PRN Benadryl (Diphenhydramine Hcl) 25 Mg Capsule 2 Cap PO Q6HRS PRN Reported Duoneb 0.5-3(2.5) Mg/3 Ml (Albuterol/Ipratropium) 3 Ml Ampul.neb 3 Ml NEB QIDPRN PRN Remeron (Mirtazapine) 15 Mg Tablet 1 Tab PO QHS Tamsulosin Hcl 0.4 Mg Cap.er.24h 1 Cap PO HS Metoprolol Succinate ( Xl ) (Metoprolol Succinate) 25 Mg Tab.er.24h 1 Tab PO DAILY Trazodone Hcl 50 Mg Tablet 2 Tab PO HS 100 mg @ HS Xarelto (Rivaroxaban) 15 Mg Tablet 20 Mg PO HS Simvastatin 20 Mg Tablet 1 Tab PO QHS Lisinopril 5 Mg Tablet 2.5 Mg PO DAILY Gabapentin 300 Mg Capsule 300 Mg PO PRN TID PRN can take 1 or 2 capsules Plavix (Clopidogrel Bisulfate) 75 Mg Tablet 75 Mg PO DAILY Digoxin 125 Mcg Tablet 125 Mcg PO DAILY Vitals/I & O Vital Sign - Last 24 Hours 08/19/18 08/19/18 08/19/18 08/19/18 11:00 11:19 14:32 15:20 Temp 99.0 97.9 99.0 97.9 Pulse 87 82 Resp 16 18 18 B/P (MAP) 145/104 (118) 151/109 (123) Pulse Ox 95 97 97 97 O2 Delivery Room Air Room Air Room Air Room Air 08/19/18 08/19/18 08/19/18 08/19/18 15:21 15:40 18:54 19:54 Temp 98.2 98.2 Pulse 87 Resp 18 14 B/P (MAP) 145/91 (109) Pulse Ox 97 97 O2 Delivery Room Air Room Air Room Air Room Air O2 Flow Rate 2.0 08/19/18 08/19/18 08/19/18 08/20/18 20:00 20:45 23:00 03:41 Temp 97.8 97.8 97.8 97.8 Pulse 97 81 Resp 16 16 B/P (MAP) 151/98 (115) 139/90 (106) Pulse Ox 97 97 O2 Delivery Room Air Room Air Room Air Room Air 08/20/18 08/20/18 08/20/18 08/20/18 07:36 08:57 08:58 08:59 Temp 97.8 97.8 Pulse 84 92 92 92 Resp 16 B/P (MAP) 136/91 (106) 146/93 146/93 Pulse Ox 97 O2 Delivery Room Air Intake and Output 08/19/18 08/19/18 08/20/18 15:00 23:00 07:00 Intake Total 40 ml 200 ml 300 ml Output Total 700 ml 850 ml 150 ml Balance -660 ml -650 ml 150 ml JON LIN MD Aug 20, 2018 09:09
[2018-08-20] MEDS: IPRATRPIUM/ALBUTEROL 0.5/2.5MG 3 ML NEBU. NEB SCH ×4 (09:19→20:22)
--- NOTE | 2018-08-20 09:36 | PDOC ---
Infectious Disease Note Subjective Subjective Feeling alright still on 1:1observation No fevers/chills/SOA/N/V/D ROS ROS per HPI otherwise neg Vital Sign Vital Signs Vital Signs Date Time Temp Pulse Resp B/P (MAP) Pulse Ox O2 Delivery O2 Flow Rate FiO2 08/20/18 09:19 96 Room Air 08/20/18 08:59 92 146/93 08/20/18 07:36 97.8 16 97.8 08/19/18 15:40 2.0 Physical Exam PHYSICAL EXAM GENERAL: Propped up in bed, alert, calm, joking HEENT: Oral mucosa moist. NECK: Supple. LUNGS: Decreased breath sounds at the bases. HEART: S1, S2. ABDOMEN: Soft, nontender, nondistended. Bowel sounds present. EXTREMITIES: No edema, no cyanosis, no clubbing. [employer]: Alert, oriented x 3, coop Labs Lab Laboratory Tests Test 08/19/18 14:15 08/20/18 04:00 Troponin I Quantitative 0.029 ng/mL (0.000-0.055) White Blood Count 7.2 x10^3/uL (4.0-11.0) Red Blood Count 4.43 x10^6/uL (4.30-5.70) Hemoglobin 14.1 g/dL (13.0-17.5) Hematocrit 41.9 % (39.0-53.0) Mean Corpuscular Volume 95 fL (79-100) Mean Corpuscular Hemoglobin 32 pg (25-35) Mean Corpuscular Hemoglobin Concent 34 g/dL (31-37) Red Cell Distribution Width 14.6 % (11.5-14.5) Platelet Count 228 x10^3/uL (140-400) Neutrophils (%) (Auto) 52 % (31-73) Lymphocytes (%) (Auto) 35 % (24-48) Monocytes (%) (Auto) 11 % (0-9) Eosinophils (%) (Auto) 2 % (0-3) Basophils (%) (Auto) 0 % (0-3) Neutrophils # (Auto) 3.7 x10^3uL (1.8-7.7) Lymphocytes # (Auto) 2.5 x10^3/uL (1.0-4.8) Monocytes # (Auto) 0.8 x10^3/uL (0.0-1.1) Eosinophils # (Auto) 0.1 x10^3/uL (0.0-0.7) Basophils # (Auto) 0.0 x10^3/uL (0.0-0.2) Sodium Level 141 mmol/L (136-145) Potassium Level 3.2 mmol/L (3.5-5.1) Chloride Level 105 mmol/L (98-107) Carbon Dioxide Level 27 mmol/L (21-32) Anion Gap 9 (6-14) Blood Urea Nitrogen 14 mg/dL (8-26) Creatinine 1.0 mg/dL (0.7-1.3) Estimated GFR (Cockcroft-Gault) 87.9 BUN/Creatinine Ratio 14 (6-20) Glucose Level 78 mg/dL (70-99) Calcium Level 8.4 mg/dL (8.5-10.1) Total Bilirubin 0.5 mg/dL (0.2-1.0) Aspartate Amino Transf (AST/SGOT) 16 U/L (15-37) Alanine Aminotransferase (ALT/SGPT) 14 U/L (16-63) Alkaline Phosphatase 60 U/L (46-116) Total Protein 6.1 g/dL (6.4-8.2) Albumin 2.9 g/dL (3.4-5.0) Albumin/Globulin Ratio 0.9 (1.0-1.7) Triglycerides Level 88 mg/dL (0-150) Cholesterol Level 128 mg/dL (0-200) LDL Cholesterol, Calculated 49 mg/dL (0-100) VLDL Cholesterol, Calculated 18 mg/dL (0-40) Non-HDL Cholesterol Calculated 67 mg/dL (0-129) HDL Cholesterol 61 mg/dL (40-60) Cholesterol/HDL Ratio 2.1 Micro BLOOD CULTURE Preliminary NO GROWTH AFTER 4 DAYS Objective Assessment Encephalopathy - improving Lactic acidosis Pulmonary infiltrates with pulmonary fibrosis Acute exacerbation of chronic obstructive pulmonary disease. Failed 2 outpt treatment with antibiotics CAD AAA Bronchiectasis Dilatation of esophagus with air-fluid level on CT Chest ? h/o achalasia w/ past myotomy and hiatal hernia repair Alcohol abuse Plan Plan of Care po Augmentin for 5 more days D/w sister D/W RN ID to sign off Attending Co-Sign Attending Co-Sign The patient was seen and interviewed as well as examined at the bedside. The chart was reviewed. The case was discussed. Agree with the plan of care. BRENDON HURLEY APRN Aug 20, 2018 09:36 MAGY JONES MD Aug 20, 2018 16:24
[2018-08-20] MEDS: oxyCODONE IR 5 MG TABLET PO SCH ×3 (10:24→20:41)
--- NOTE | 2018-08-20 10:28 | PDOC ---
IM PROGRESS NOTES- Subjective Subjective Patient has a 1-1 sitter confusion. His confusion is improving. He is much more alert and oriented this morning. Patient denies any cold, cough congestion chest pains or palpitations. He denies any abdominal pain, nausea or vomiting. He is a poor historian but is much better than yesterday. Monitor shows episodes of PVCs and tachycardia. Objective Vitals Vital Signs Date Time Temp Pulse Resp B/P (MAP) Pulse Ox O2 Delivery O2 Flow Rate FiO2 08/20/18 09:19 96 Room Air 08/20/18 08:59 92 146/93 08/20/18 07:36 97.8 16 97.8 08/19/18 15:40 2.0 Input & Output Intake and Output 08/20/18 07:00 Intake Total 540 ml Output Total 1700 ml Balance -1160 ml Intake Oral 540 ml Output Urine Total 1700 ml # Voids 2 # Bowel Movements 4 Physical Exam Physical Exam General appearance -sleepy and confused Mental Status -sleepy, confused Chest -decreased breath sounds at bases bilaterally Heart - S1 and S2 normal Abdomen - soft, nontender, nondistended, no masses or organomegaly Neurological -confused Musculoskeletal - no muscular tenderness noted Extremities - no pedal edema Skin - warm and dry Labs Laboratory Tests Test 08/18/18 20:08 08/18/18 21:40 08/19/18 03:15 08/19/18 07:50 Glucose (Fingerstick) 124 mg/dL (70-99) White Blood Count 10.0 x10^3/uL (4.0-11.0) 10.2 x10^3/uL (4.0-11.0) Red Blood Count 4.30 x10^6/uL (4.30-5.70) 4.31 x10^6/uL (4.30-5.70) Hemoglobin 13.8 g/dL (13.0-17.5) 14.0 g/dL (13.0-17.5) Hematocrit 41.0 % (39.0-53.0) 41.2 % (39.0-53.0) Mean Corpuscular Volume 95 fL (79-100) 96 fL (79-100) Mean Corpuscular Hemoglobin 32 pg (25-35) 33 pg (25-35) Mean Corpuscular Hemoglobin Concent 34 g/dL (31-37) 34 g/dL (31-37) Red Cell Distribution Width 14.6 % (11.5-14.5) 14.5 % (11.5-14.5) Platelet Count 242 x10^3/uL (140-400) 229 x10^3/uL (140-400) Neutrophils (%) (Auto) 79 % (31-73) 66 % (31-73) Lymphocytes (%) (Auto) 10 % (24-48) 23 % (24-48) Monocytes (%) (Auto) 10 % (0-9) 11 % (0-9) Eosinophils (%) (Auto) 0 % (0-3) 0 % (0-3) Basophils (%) (Auto) 0 % (0-3) 0 % (0-3) Neutrophils # (Auto) 7.9 x10^3uL (1.8-7.7) 6.7 x10^3uL (1.8-7.7) Lymphocytes # (Auto) 1.0 x10^3/uL (1.0-4.8) 2.3 x10^3/uL (1.0-4.8) Monocytes # (Auto) 1.0 x10^3/uL (0.0-1.1) 1.1 x10^3/uL (0.0-1.1) Eosinophils # (Auto) 0.0 x10^3/uL (0.0-0.7) 0.0 x10^3/uL (0.0-0.7) Basophils # (Auto) 0.0 x10^3/uL (0.0-0.2) 0.0 x10^3/uL (0.0-0.2) Sodium Level 143 mmol/L (136-145) 144 mmol/L (136-145) Potassium Level 3.9 mmol/L (3.5-5.1) 3.7 mmol/L (3.5-5.1) Chloride Level 105 mmol/L (98-107) 105 mmol/L (98-107) Carbon Dioxide Level 32 mmol/L (21-32) 32 mmol/L (21-32) Anion Gap 6 (6-14) 7 (6-14) Blood Urea Nitrogen 16 mg/dL (8-26) 13 mg/dL (8-26) Creatinine 1.3 mg/dL (0.7-1.3) 1.2 mg/dL (0.7-1.3) Estimated GFR (Cockcroft-Gault) 64.9 71.2 Glucose Level 104 mg/dL (70-99) 79 mg/dL (70-99) Calcium Level 8.7 mg/dL (8.5-10.1) 8.7 mg/dL (8.5-10.1) Magnesium Level 2.1 mg/dL (1.8-2.4) 2.3 mg/dL (1.8-2.4) Troponin I Quantitative 0.146 ng/mL (0.000-0.055) 0.072 ng/mL (0.000-0.055) LA-Zgr-B-Type Natriuretic Peptide 2223 pg/mL (0-449) Thyroid Stimulating Hormone (TSH) 0.227 uIU/mL (0.358-3.74) O2 Saturation 93 % (92-99) Arterial Blood pH 7.46 (7.35-7.45) Arterial Blood pCO2 at Patient Temp 34 mmHg (35-46) Arterial Blood pO2 at Patient Temp 61 mmHg (65-108) Arterial Blood HCO3 24 mmol/L (21-28) Arterial Blood Base Excess 0 mmol/L (-3-3) FiO2 21 Test 08/19/18 14:15 08/20/18 04:00 Troponin I Quantitative 0.029 ng/mL (0.000-0.055) White Blood Count 7.2 x10^3/uL (4.0-11.0) Red Blood Count 4.43 x10^6/uL (4.30-5.70) Hemoglobin 14.1 g/dL (13.0-17.5) Hematocrit 41.9 % (39.0-53.0) Mean Corpuscular Volume 95 fL (79-100) Mean Corpuscular Hemoglobin 32 pg (25-35) Mean Corpuscular Hemoglobin Concent 34 g/dL (31-37) Red Cell Distribution Width 14.6 % (11.5-14.5) Platelet Count 228 x10^3/uL (140-400) Neutrophils (%) (Auto) 52 % (31-73) Lymphocytes (%) (Auto) 35 % (24-48) Monocytes (%) (Auto) 11 % (0-9) Eosinophils (%) (Auto) 2 % (0-3) Basophils (%) (Auto) 0 % (0-3) Neutrophils # (Auto) 3.7 x10^3uL (1.8-7.7) Lymphocytes # (Auto) 2.5 x10^3/uL (1.0-4.8) Monocytes # (Auto) 0.8 x10^3/uL (0.0-1.1) Eosinophils # (Auto) 0.1 x10^3/uL (0.0-0.7) Basophils # (Auto) 0.0 x10^3/uL (0.0-0.2) Sodium Level 141 mmol/L (136-145) Potassium Level 3.2 mmol/L (3.5-5.1) Chloride Level 105 mmol/L (98-107) Carbon Dioxide Level 27 mmol/L (21-32) Anion Gap 9 (6-14) Blood Urea Nitrogen 14 mg/dL (8-26) Creatinine 1.0 mg/dL (0.7-1.3) Estimated GFR (Cockcroft-Gault) 87.9 BUN/Creatinine Ratio 14 (6-20) Glucose Level 78 mg/dL (70-99) Calcium Level 8.4 mg/dL (8.5-10.1) Total Bilirubin 0.5 mg/dL (0.2-1.0) Aspartate Amino Transf (AST/SGOT) 16 U/L (15-37) Alanine Aminotransferase (ALT/SGPT) 14 U/L (16-63) Alkaline Phosphatase 60 U/L (46-116) Total Protein 6.1 g/dL (6.4-8.2) Albumin 2.9 g/dL (3.4-5.0) Albumin/Globulin Ratio 0.9 (1.0-1.7) Triglycerides Level 88 mg/dL (0-150) Cholesterol Level 128 mg/dL (0-200) LDL Cholesterol, Calculated 49 mg/dL (0-100) VLDL Cholesterol, Calculated 18 mg/dL (0-40) Non-HDL Cholesterol Calculated 67 mg/dL (0-129) HDL Cholesterol 61 mg/dL (40-60) Cholesterol/HDL Ratio 2.1 Laboratory Tests Test 08/19/18 14:15 08/20/18 04:00 Troponin I Quantitative 0.029 ng/mL (0.000-0.055) White Blood Count 7.2 x10^3/uL (4.0-11.0) Red Blood Count 4.43 x10^6/uL (4.30-5.70) Hemoglobin 14.1 g/dL (13.0-17.5) Hematocrit 41.9 % (39.0-53.0) Mean Corpuscular Volume 95 fL (79-100) Mean Corpuscular Hemoglobin 32 pg (25-35) Mean Corpuscular Hemoglobin Concent 34 g/dL (31-37) Red Cell Distribution Width 14.6 % (11.5-14.5) Platelet Count 228 x10^3/uL (140-400) Neutrophils (%) (Auto) 52 % (31-73) Lymphocytes (%) (Auto) 35 % (24-48) Monocytes (%) (Auto) 11 % (0-9) Eosinophils (%) (Auto) 2 % (0-3) Basophils (%) (Auto) 0 % (0-3) Neutrophils # (Auto) 3.7 x10^3uL (1.8-7.7) Lymphocytes # (Auto) 2.5 x10^3/uL (1.0-4.8) Monocytes # (Auto) 0.8 x10^3/uL (0.0-1.1) Eosinophils # (Auto) 0.1 x10^3/uL (0.0-0.7) Basophils # (Auto) 0.0 x10^3/uL (0.0-0.2) Sodium Level 141 mmol/L (136-145) Potassium Level 3.2 mmol/L (3.5-5.1) Chloride Level 105 mmol/L (98-107) Carbon Dioxide Level 27 mmol/L (21-32) Anion Gap 9 (6-14) Blood Urea Nitrogen 14 mg/dL (8-26) Creatinine 1.0 mg/dL (0.7-1.3) Estimated GFR (Cockcroft-Gault) 87.9 BUN/Creatinine Ratio 14 (6-20) Glucose Level 78 mg/dL (70-99) Calcium Level 8.4 mg/dL (8.5-10.1) Total Bilirubin 0.5 mg/dL (0.2-1.0) Aspartate Amino Transf (AST/SGOT) 16 U/L (15-37) Alanine Aminotransferase (ALT/SGPT) 14 U/L (16-63) Alkaline Phosphatase 60 U/L (46-116) Total Protein 6.1 g/dL (6.4-8.2) Albumin 2.9 g/dL (3.4-5.0) Albumin/Globulin Ratio 0.9 (1.0-1.7) Triglycerides Level 88 mg/dL (0-150) Cholesterol Level 128 mg/dL (0-200) LDL Cholesterol, Calculated 49 mg/dL (0-100) VLDL Cholesterol, Calculated 18 mg/dL (0-40) Non-HDL Cholesterol Calculated 67 mg/dL (0-129) HDL Cholesterol 61 mg/dL (40-60) Cholesterol/HDL Ratio 2.1 Meds Current Medications Amoxicillin/ Clavulanate Potassium (Augmentin 875/ 125mg) 1 tab BID PO Last administered on 08/20/18at 08:55; Start 08/19/18 at 21:00 Lisinopril (Prinivil) 10 mg DAILY PO Last administered on 08/20/18at 08:58; Start 08/20/18 at 09:00 Multivitamins (Thera M Plus) 1 tab DAILY PO Last administered on 08/20/18at 08: 55; Start 08/19/18 at 11:00 Potassium Chloride (Klor-Con) 40 meq 1X ONCE PO Last administered on at 08:56; Start 08/20/18 at 08:00; Stop 08/20/18 at 08:01; Status DC Thiamine Mononitrate (Vitamin B-1) 100 mg DAILY PO Last administered on at 08:56; Start 08/19/18 at 11:00 Assessment Assessment 1. Sepsis. 2. Pneumonia. 3. Acute exacerbation of chronic obstructive pulmonary disease. 4. Coronary artery disease. 5. Peripheral neuropathy. 6. History of Jhaveri's palsy. 7. Chronic low back pain, with back surgeries x 2. 8. Chronic diastolic congestive heart failure with ejection fraction of 55% and AICD. 9. Hypertensive crisis. 10. Hyperlipidemia. 11. History of repair of the aortic aneurysm as well as right common iliac artery aneurysm. 12. History of deep venous thrombosis. 13. Osteoarthritis. 14. Diverticulosis. PLAN: Continue Xarelto for atrial fibrillation that is chronic. I will start him on IV Levaquin. Consult Dr. Resendiz for Pulmonary evaluation and management and Dr. Rushing for Infectious Disease evaluation and management. Continue breathing treatment. The patient has been given IV fluids. I have started him on IV steroids. We will monitor blood sugars. For details, please review the orders. Pneumonia - clinically improving however he continues to have a lot of coughing. CT chest showed bronchiectasis. Discussed with Dr. Blanchard. I will discontinue IV steroids. This will also help his agitation. Possible dysphagia- patient has an abnormal CT with the fluid level in the esophagus. Patient states that he had esophageal surgery previously. I'll consult Dr. Banks for GI evaluation and management. Discussed with Dr. Banks. 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 He will need an EGD as outpatient. These patients are at high risk for squamous cell carcinoma. Acute metabolic encephalopathy likely due to alcohol withdrawal. Continue IV or by mouth Ativan as needed. Clinically improving Continue cardiac monitoring. Alcoholism - patient is strongly advised to avoid alcohol. Consult PAT team. The patient is advised to participate in addiction recovery program after discharge Cardiac arrhythmia and elevated troponin level- EKG reviewed. Cardiology consult obtained. Continue cardiac monitoring. Hypokalemia- potassium is 3.2. Replace potassium. Low TSH- this is due to IV steroids that he was receiving prior to the test. No intervention necessary. Plan Plan For more details regarding further plans, please refer to the orders. RENE MOON MD Aug 20, 2018 10:28
[2018-08-20 11:00] VITALS: BP 132/86
[2018-08-20 11:06] LABS: PROTHROMBIN TIME PATIENT 18.1 SEC (11.7-14.0)
--- NOTE | 2018-08-20 11:42 | PDOC ---
Subjective: Subjective: Walking from restroom back to bed for echo. Doesn't say much but denies swallowing problems. Objective: Objective: Reviewed chart - confusion improving. Vital Signs: Vital Signs Date Time Temp Pulse Resp B/P (MAP) Pulse Ox O2 Delivery O2 Flow Rate FiO2 08/20/18 10:24 Room Air 08/20/18 09:19 96 08/20/18 08:59 92 146/93 08/20/18 07:36 97.8 16 97.8 08/19/18 15:40 2.0 Labs: Laboratory Tests Test 08/19/18 14:15 08/20/18 04:00 08/20/18 10:40 Troponin I Quantitative 0.029 ng/mL White Blood Count 7.2 x10^3/uL Red Blood Count 4.43 x10^6/uL Hemoglobin 14.1 g/dL Hematocrit 41.9 % Mean Corpuscular Volume 95 fL Mean Corpuscular Hemoglobin 32 pg Mean Corpuscular Hemoglobin Concent 34 g/dL Red Cell Distribution Width 14.6 % Platelet Count 228 x10^3/uL Neutrophils (%) (Auto) 52 % Lymphocytes (%) (Auto) 35 % Monocytes (%) (Auto) 11 % Eosinophils (%) (Auto) 2 % Basophils (%) (Auto) 0 % Neutrophils # (Auto) 3.7 x10^3uL Lymphocytes # (Auto) 2.5 x10^3/uL Monocytes # (Auto) 0.8 x10^3/uL Eosinophils # (Auto) 0.1 x10^3/uL Basophils # (Auto) 0.0 x10^3/uL Sodium Level 141 mmol/L Potassium Level 3.2 mmol/L Chloride Level 105 mmol/L Carbon Dioxide Level 27 mmol/L Anion Gap 9 Blood Urea Nitrogen 14 mg/dL Creatinine 1.0 mg/dL Estimated GFR (Cockcroft-Gault) 87.9 BUN/Creatinine Ratio 14 Glucose Level 78 mg/dL Calcium Level 8.4 mg/dL Total Bilirubin 0.5 mg/dL Aspartate Amino Transf (AST/SGOT) 16 U/L Alanine Aminotransferase (ALT/SGPT) 14 U/L Alkaline Phosphatase 60 U/L Total Protein 6.1 g/dL Albumin 2.9 g/dL Albumin/Globulin Ratio 0.9 Triglycerides Level 88 mg/dL Cholesterol Level 128 mg/dL LDL Cholesterol, Calculated 49 mg/dL VLDL Cholesterol, Calculated 18 mg/dL Non-HDL Cholesterol Calculated 67 mg/dL HDL Cholesterol 61 mg/dL Cholesterol/HDL Ratio 2.1 Prothrombin Time 18.1 SEC Prothromb Time International Ratio 1.6 PE: GEN: NAD LUNGS: room air NEURO/PSYCH: confused? A/P: Confusion - better Resp failure - pneumonia, COPD, CHF Abnormal CT chest - dilatation of esophagus w/ air-fluid level -- Continue same per GI. HONEY AUGUSTE Aug 20, 2018 11:42
--- NOTE | 2018-08-20 13:36 | CARD ---
MR#: [id number] Date of Study: 08/20/2018 Ordering Physician: MARCIN NICHOLE, Referring Physician: RENE MOON Tech: Alisa Byrnes [facility] APPROVED REPORT EXAM: Two-dimensional and M-mode echocardiogram with Doppler and color Doppler. Other Information Quality : Technically Limited Rhythm : Atrial FibrillationTechnically limited study due to smoking. INDICATION elevated troponin 2D DIMENSIONS RVDd3.8 (2.9-3.5cm)IVSd1.4 (0.7-1.1cm) Aortic Root(2D)3.5 (2.0-3.7cm)LVDd5.0 (3.9-5.9cm) LVOT Diameter2.2 (1.8-2.4cm)PWd1.1 (0.7-1.1cm) LVDs3.4 (2.5-4.0cm)FS (%) 30.6 % SV66.9 ml Aortic Valve AoV Peak John.90.5cm/Juan Carlos Peak GR.3.3mmHg LVOT VTI 7.90cmAVA (VMAX)2.60cm2 OFELIA (VTI)2.60cm2 Mitral Valve MV E Tcumsqzg30.9cm/sMV DECEL [id number] MV A Txgazwso37.1cm/sE/A Ratio3.6 MV A Hxtyylmx18ss TDI Lateral E' P. V14.80cm/sMedial E' P. V9.14cm/s E/Lateral E'4.4E/Medial E'7.1 Tricuspid Valve TR P. Zyadkslg236is/sRAP [id number] TR Peak Gr.[id number] LEFT VENTRICLE The left ventricle is normal size. There is mild concentric left ventricular hypertrophy. The left ve ntricular systolic function is normal and the ejection fraction is within normal range. The Ejection Fraction is 50-55%. There is normal LV segmental wall motion. Transmitral Doppler flow pattern is Gra de I-abnormal relaxation pattern. RIGHT VENTRICLE The right ventricle is normal size. There is normal right ventricular wall thickness. The right ventr icular systolic function is normal. Device lead noted in RV. ATRIA The left atrium size is normal. The right atrium size is normal. The interatrial septum is intact wit h no evidence for an atrial septal defect or patent foramen ovale as noted on 2-D or Doppler imaging. AORTIC VALVE The aortic valve is probably trileaflet. Doppler and Color Flow revealed no significant aortic regurg itation. There is no significant aortic valvular stenosis. MITRAL VALVE The mitral valve is normal in structure and function. There is no evidence of mitral valve prolapse. There is no mitral valve stenosis. Doppler and Color-flow revealed mild mitral regurgitation. TRICUSPID VALVE The tricuspid valve is normal in structure and function. Doppler and Color Flow revealed trace tricus pid regurgitation. The PA pressure was estimated at 23 mmHg. There is no tricuspid valve prolapse or vegetation. There is no tricuspid valve stenosis. PULMONIC VALVE Pulmonic valve not well visualized. GREAT VESSELS The aortic root is normal in size. The ascending aorta is normal in size. PERICARDIAL EFFUSION There is no evidence of significant pericardial effusion. Critical Notification Critical Value: No <Conclusion> The left ventricle is normal size. The left ventricular systolic function is normal and the ejection fraction is within normal range. The Ejection Fraction is 50-55%. There is mild concentric left ventricular hypertrophy. Device lead noted in RV. There is no significant aortic valvular stenosis. Doppler and Color Flow revealed no significant aortic regurgitation. Doppler and Color-flow revealed mild mitral regurgitation. Doppler and Color Flow revealed trace tricuspid regurgitation. The PA pressure was estimated at 23 mmHg. Signed by : Adriel Gao MD Electronically Approved : 08/20/2018 13:35:59
--- NOTE | 2018-08-20 13:41 | PDOC ---
PULMONARY PROGRESS NOTES Subjective no cough/ soa Vitals Vital Signs Date Time Temp Pulse Resp B/P (MAP) Pulse Ox O2 Delivery O2 Flow Rate FiO2 08/20/18 12:43 96 Room Air 08/20/18 11:00 97.8 87 16 132/86 (101) 97.8 08/19/18 15:40 2.0 General: Alert, No acute distress Lungs: Clear Cardiovascular: S1 Abdomen: Soft Neuro Exam: Alert Extremities: No Edema Labs Laboratory Tests Test 08/18/18 20:08 08/18/18 21:40 08/19/18 03:15 08/19/18 07:50 Glucose (Fingerstick) 124 mg/dL (70-99) White Blood Count 10.0 x10^3/uL (4.0-11.0) 10.2 x10^3/uL (4.0-11.0) Red Blood Count 4.30 x10^6/uL (4.30-5.70) 4.31 x10^6/uL (4.30-5.70) Hemoglobin 13.8 g/dL (13.0-17.5) 14.0 g/dL (13.0-17.5) Hematocrit 41.0 % (39.0-53.0) 41.2 % (39.0-53.0) Mean Corpuscular Volume 95 fL (79-100) 96 fL (79-100) Mean Corpuscular Hemoglobin 32 pg (25-35) 33 pg (25-35) Mean Corpuscular Hemoglobin Concent 34 g/dL (31-37) 34 g/dL (31-37) Red Cell Distribution Width 14.6 % (11.5-14.5) 14.5 % (11.5-14.5) Platelet Count 242 x10^3/uL (140-400) 229 x10^3/uL (140-400) Neutrophils (%) (Auto) 79 % (31-73) 66 % (31-73) Lymphocytes (%) (Auto) 10 % (24-48) 23 % (24-48) Monocytes (%) (Auto) 10 % (0-9) 11 % (0-9) Eosinophils (%) (Auto) 0 % (0-3) 0 % (0-3) Basophils (%) (Auto) 0 % (0-3) 0 % (0-3) Neutrophils # (Auto) 7.9 x10^3uL (1.8-7.7) 6.7 x10^3uL (1.8-7.7) Lymphocytes # (Auto) 1.0 x10^3/uL (1.0-4.8) 2.3 x10^3/uL (1.0-4.8) Monocytes # (Auto) 1.0 x10^3/uL (0.0-1.1) 1.1 x10^3/uL (0.0-1.1) Eosinophils # (Auto) 0.0 x10^3/uL (0.0-0.7) 0.0 x10^3/uL (0.0-0.7) Basophils # (Auto) 0.0 x10^3/uL (0.0-0.2) 0.0 x10^3/uL (0.0-0.2) Sodium Level 143 mmol/L (136-145) 144 mmol/L (136-145) Potassium Level 3.9 mmol/L (3.5-5.1) 3.7 mmol/L (3.5-5.1) Chloride Level 105 mmol/L (98-107) 105 mmol/L (98-107) Carbon Dioxide Level 32 mmol/L (21-32) 32 mmol/L (21-32) Anion Gap 6 (6-14) 7 (6-14) Blood Urea Nitrogen 16 mg/dL (8-26) 13 mg/dL (8-26) Creatinine 1.3 mg/dL (0.7-1.3) 1.2 mg/dL (0.7-1.3) Estimated GFR (Cockcroft-Gault) 64.9 71.2 Glucose Level 104 mg/dL (70-99) 79 mg/dL (70-99) Calcium Level 8.7 mg/dL (8.5-10.1) 8.7 mg/dL (8.5-10.1) Magnesium Level 2.1 mg/dL (1.8-2.4) 2.3 mg/dL (1.8-2.4) Troponin I Quantitative 0.146 ng/mL (0.000-0.055) 0.072 ng/mL (0.000-0.055) HH-Gze-W-Type Natriuretic Peptide 2223 pg/mL (0-449) Thyroid Stimulating Hormone (TSH) 0.227 uIU/mL (0.358-3.74) O2 Saturation 93 % (92-99) Arterial Blood pH 7.46 (7.35-7.45) Arterial Blood pCO2 at Patient Temp 34 mmHg (35-46) Arterial Blood pO2 at Patient Temp 61 mmHg (65-108) Arterial Blood HCO3 24 mmol/L (21-28) Arterial Blood Base Excess 0 mmol/L (-3-3) FiO2 21 Test 08/19/18 14:15 08/20/18 04:00 08/20/18 10:40 Troponin I Quantitative 0.029 ng/mL (0.000-0.055) White Blood Count 7.2 x10^3/uL (4.0-11.0) Red Blood Count 4.43 x10^6/uL (4.30-5.70) Hemoglobin 14.1 g/dL (13.0-17.5) Hematocrit 41.9 % (39.0-53.0) Mean Corpuscular Volume 95 fL (79-100) Mean Corpuscular Hemoglobin 32 pg (25-35) Mean Corpuscular Hemoglobin Concent 34 g/dL (31-37) Red Cell Distribution Width 14.6 % (11.5-14.5) Platelet Count 228 x10^3/uL (140-400) Neutrophils (%) (Auto) 52 % (31-73) Lymphocytes (%) (Auto) 35 % (24-48) Monocytes (%) (Auto) 11 % (0-9) Eosinophils (%) (Auto) 2 % (0-3) Basophils (%) (Auto) 0 % (0-3) Neutrophils # (Auto) 3.7 x10^3uL (1.8-7.7) Lymphocytes # (Auto) 2.5 x10^3/uL (1.0-4.8) Monocytes # (Auto) 0.8 x10^3/uL (0.0-1.1) Eosinophils # (Auto) 0.1 x10^3/uL (0.0-0.7) Basophils # (Auto) 0.0 x10^3/uL (0.0-0.2) Sodium Level 141 mmol/L (136-145) Potassium Level 3.2 mmol/L (3.5-5.1) Chloride Level 105 mmol/L (98-107) Carbon Dioxide Level 27 mmol/L (21-32) Anion Gap 9 (6-14) Blood Urea Nitrogen 14 mg/dL (8-26) Creatinine 1.0 mg/dL (0.7-1.3) Estimated GFR (Cockcroft-Gault) 87.9 BUN/Creatinine Ratio 14 (6-20) Glucose Level 78 mg/dL (70-99) Calcium Level 8.4 mg/dL (8.5-10.1) Total Bilirubin 0.5 mg/dL (0.2-1.0) Aspartate Amino Transf (AST/SGOT) 16 U/L (15-37) Alanine Aminotransferase (ALT/SGPT) 14 U/L (16-63) Alkaline Phosphatase 60 U/L (46-116) Total Protein 6.1 g/dL (6.4-8.2) Albumin 2.9 g/dL (3.4-5.0) Albumin/Globulin Ratio 0.9 (1.0-1.7) Triglycerides Level 88 mg/dL (0-150) Cholesterol Level 128 mg/dL (0-200) LDL Cholesterol, Calculated 49 mg/dL (0-100) VLDL Cholesterol, Calculated 18 mg/dL (0-40) Non-HDL Cholesterol Calculated 67 mg/dL (0-129) HDL Cholesterol 61 mg/dL (40-60) Cholesterol/HDL Ratio 2.1 Prothrombin Time 18.1 SEC (11.7-14.0) Prothromb Time International Ratio 1.6 (0.8-1.1) Laboratory Tests Test 08/19/18 14:15 08/20/18 04:00 08/20/18 10:40 Troponin I Quantitative 0.029 ng/mL (0.000-0.055) White Blood Count 7.2 x10^3/uL (4.0-11.0) Red Blood Count 4.43 x10^6/uL (4.30-5.70) Hemoglobin 14.1 g/dL (13.0-17.5) Hematocrit 41.9 % (39.0-53.0) Mean Corpuscular Volume 95 fL (79-100) Mean Corpuscular Hemoglobin 32 pg (25-35) Mean Corpuscular Hemoglobin Concent 34 g/dL (31-37) Red Cell Distribution Width 14.6 % (11.5-14.5) Platelet Count 228 x10^3/uL (140-400) Neutrophils (%) (Auto) 52 % (31-73) Lymphocytes (%) (Auto) 35 % (24-48) Monocytes (%) (Auto) 11 % (0-9) Eosinophils (%) (Auto) 2 % (0-3) Basophils (%) (Auto) 0 % (0-3) Neutrophils # (Auto) 3.7 x10^3uL (1.8-7.7) Lymphocytes # (Auto) 2.5 x10^3/uL (1.0-4.8) Monocytes # (Auto) 0.8 x10^3/uL (0.0-1.1) Eosinophils # (Auto) 0.1 x10^3/uL (0.0-0.7) Basophils # (Auto) 0.0 x10^3/uL (0.0-0.2) Sodium Level 141 mmol/L (136-145) Potassium Level 3.2 mmol/L (3.5-5.1) Chloride Level 105 mmol/L (98-107) Carbon Dioxide Level 27 mmol/L (21-32) Anion Gap 9 (6-14) Blood Urea Nitrogen 14 mg/dL (8-26) Creatinine 1.0 mg/dL (0.7-1.3) Estimated GFR (Cockcroft-Gault) 87.9 BUN/Creatinine Ratio 14 (6-20) Glucose Level 78 mg/dL (70-99) Calcium Level 8.4 mg/dL (8.5-10.1) Total Bilirubin 0.5 mg/dL (0.2-1.0) Aspartate Amino Transf (AST/SGOT) 16 U/L (15-37) Alanine Aminotransferase (ALT/SGPT) 14 U/L (16-63) Alkaline Phosphatase 60 U/L (46-116) Total Protein 6.1 g/dL (6.4-8.2) Albumin 2.9 g/dL (3.4-5.0) Albumin/Globulin Ratio 0.9 (1.0-1.7) Triglycerides Level 88 mg/dL (0-150) Cholesterol Level 128 mg/dL (0-200) LDL Cholesterol, Calculated 49 mg/dL (0-100) VLDL Cholesterol, Calculated 18 mg/dL (0-40) Non-HDL Cholesterol Calculated 67 mg/dL (0-129) HDL Cholesterol 61 mg/dL (40-60) Cholesterol/HDL Ratio 2.1 Prothrombin Time 18.1 SEC (11.7-14.0) Prothromb Time International Ratio 1.6 (0.8-1.1) Medications Active Scripts Medications Dose Route/Sig Max Daily Dose Days Date Category Dose Instructions Duoneb 0.5-3(2.5) Mg/3 Ml (Albuterol/Ipratropium) 3 Ml Ampul.neb 3 Ml NEB QIDPRN PRN 08/16/18 Reported Remeron (Mirtazapine) 15 Mg Tablet 1 Tab PO QHS 08/16/18 Reported Proair Hfa Inhaler (Albuterol Sulfate) 8.5 Gm Hfa.aer.ad 1 Puff INH PRN Q6HRS PRN 07/01/18 Rx Benadryl (Diphenhydramine Hcl) 25 Mg Capsule 2 Cap PO Q6HRS PRN 02/24/17 Rx Tamsulosin Hcl 0.4 Mg Cap.er.24h 1 Cap PO HS 02/14/17 Reported Metoprolol Succinate ( Xl ) (Metoprolol Succinate) 25 Mg Tab.er.24h 1 Tab PO DAILY 02/14/17 Reported Trazodone Hcl 50 Mg Tablet 2 Tab PO HS 03/26/15 Reported 100 mg @ HS Xarelto (Rivaroxaban) 15 Mg Tablet 20 Mg PO HS 03/26/15 Reported Simvastatin 20 Mg Tablet 1 Tab PO QHS 10/18/14 Reported Lisinopril 5 Mg Tablet 2.5 Mg PO DAILY 01/29/14 Reported Gabapentin 300 Mg Capsule 300 Mg PO PRN TID PRN 01/29/14 Reported can take 1 or 2 capsules Plavix (Clopidogrel Bisulfate) 75 Mg Tablet 75 Mg PO DAILY 01/29/14 Reported Digoxin 125 Mcg Tablet 125 Mcg PO DAILY 01/29/14 Reported Impression . 1. Clinical pneumonia. 2. Acute exacerbation of chronic obstructive pulmonary disease. resolved 3. Tobacco dependent. 4. Acute purulent bronchitis. 5. ETOH abuse, encephalopathy, resolved 6. CT chest reviewed. bronchiectasis/ LLL mucous plug Plan . 1. CT chest reviewed. bronchiectasis/ LLL mucous plug/ pulmonary toilet 2. Tessalon Perles. 3. off Steroids 4. Continue antibiotics. 5. Pepcid for possible reflux. 6. d/w VERONICA HOPKINS MD Aug 20, 2018 13:40
[2018-08-20 15:00] VITALS: BP 117/93
--- NOTE | 2018-08-20 16:34 | PDOC ---
PROGRESS NOTES Subjective Subjective Patient seen and examined The patient looks and feels better today. Objective Objective Vital Signs Date Time Temp Pulse Resp B/P (MAP) Pulse Ox O2 Delivery O2 Flow Rate FiO2 08/20/18 15:28 Room Air 08/20/18 15:00 97.9 86 18 117/93 (101) 99 97.9 08/19/18 15:40 2.0 Intake and Output 08/20/18 07:00 Intake Total 540 ml Output Total 1700 ml Balance -1160 ml Intake Oral 540 ml Output Urine Total 1700 ml # Voids 2 # Bowel Movements 4 Physical Exam Abdomen: Normal bowel sounds Heart: Regular rate General: mild distress Lungs: Other (mildly decreased breath sounds) Assessment Assessment Non-ST elevated myocardial infarction. Peak troponin of 0.147. Probable demand ischemia in the setting of pneumonia, acidosis and accelerated hypertension. No chest pain. Echocardiogram shows normal left ventricular systolic function. Continuing present treatment. Paroxysmal atrial fibrillation. Presently in sinus rhythm. Continue medications and Xarelto. Cardiomyopathy. Status post AICD. Most recent interrogation showed normal function. Echocardiogram with normal LV systolic function. Possible metabolic encephalopathy. Patient now comfortable. Negative CT head scan. Continue present treatment. Acute respiratory failure. Improving. Followed by the pulmonary service. Accelerated hypertension. Also improving. Statins for hyperlipidemia. History of abdominal aortic aneurysm and right iliac aneurysm repair. Reported alcohol abuse. Comment Review of Relevant I have reviewed the following items mckayla (where applicable) has been applied. Labs Laboratory Tests Test 08/18/18 20:08 08/18/18 21:40 08/19/18 03:15 08/19/18 07:50 Glucose (Fingerstick) 124 mg/dL (70-99) White Blood Count 10.0 x10^3/uL (4.0-11.0) 10.2 x10^3/uL (4.0-11.0) Red Blood Count 4.30 x10^6/uL (4.30-5.70) 4.31 x10^6/uL (4.30-5.70) Hemoglobin 13.8 g/dL (13.0-17.5) 14.0 g/dL (13.0-17.5) Hematocrit 41.0 % (39.0-53.0) 41.2 % (39.0-53.0) Mean Corpuscular Volume 95 fL (79-100) 96 fL (79-100) Mean Corpuscular Hemoglobin 32 pg (25-35) 33 pg (25-35) Mean Corpuscular Hemoglobin Concent 34 g/dL (31-37) 34 g/dL (31-37) Red Cell Distribution Width 14.6 % (11.5-14.5) 14.5 % (11.5-14.5) Platelet Count 242 x10^3/uL (140-400) 229 x10^3/uL (140-400) Neutrophils (%) (Auto) 79 % (31-73) 66 % (31-73) Lymphocytes (%) (Auto) 10 % (24-48) 23 % (24-48) Monocytes (%) (Auto) 10 % (0-9) 11 % (0-9) Eosinophils (%) (Auto) 0 % (0-3) 0 % (0-3) Basophils (%) (Auto) 0 % (0-3) 0 % (0-3) Neutrophils # (Auto) 7.9 x10^3uL (1.8-7.7) 6.7 x10^3uL (1.8-7.7) Lymphocytes # (Auto) 1.0 x10^3/uL (1.0-4.8) 2.3 x10^3/uL (1.0-4.8) Monocytes # (Auto) 1.0 x10^3/uL (0.0-1.1) 1.1 x10^3/uL (0.0-1.1) Eosinophils # (Auto) 0.0 x10^3/uL (0.0-0.7) 0.0 x10^3/uL (0.0-0.7) Basophils # (Auto) 0.0 x10^3/uL (0.0-0.2) 0.0 x10^3/uL (0.0-0.2) Sodium Level 143 mmol/L (136-145) 144 mmol/L (136-145) Potassium Level 3.9 mmol/L (3.5-5.1) 3.7 mmol/L (3.5-5.1) Chloride Level 105 mmol/L (98-107) 105 mmol/L (98-107) Carbon Dioxide Level 32 mmol/L (21-32) 32 mmol/L (21-32) Anion Gap 6 (6-14) 7 (6-14) Blood Urea Nitrogen 16 mg/dL (8-26) 13 mg/dL (8-26) Creatinine 1.3 mg/dL (0.7-1.3) 1.2 mg/dL (0.7-1.3) Estimated GFR (Cockcroft-Gault) 64.9 71.2 Glucose Level 104 mg/dL (70-99) 79 mg/dL (70-99) Calcium Level 8.7 mg/dL (8.5-10.1) 8.7 mg/dL (8.5-10.1) Magnesium Level 2.1 mg/dL (1.8-2.4) 2.3 mg/dL (1.8-2.4) Troponin I Quantitative 0.146 ng/mL (0.000-0.055) 0.072 ng/mL (0.000-0.055) OY-Fev-W-Type Natriuretic Peptide 2223 pg/mL (0-449) Thyroid Stimulating Hormone (TSH) 0.227 uIU/mL (0.358-3.74) O2 Saturation 93 % (92-99) Arterial Blood pH 7.46 (7.35-7.45) Arterial Blood pCO2 at Patient Temp 34 mmHg (35-46) Arterial Blood pO2 at Patient Temp 61 mmHg (65-108) Arterial Blood HCO3 24 mmol/L (21-28) Arterial Blood Base Excess 0 mmol/L (-3-3) FiO2 21 Test 08/19/18 14:15 08/20/18 04:00 08/20/18 10:40 Troponin I Quantitative 0.029 ng/mL (0.000-0.055) White Blood Count 7.2 x10^3/uL (4.0-11.0) Red Blood Count 4.43 x10^6/uL (4.30-5.70) Hemoglobin 14.1 g/dL (13.0-17.5) Hematocrit 41.9 % (39.0-53.0) Mean Corpuscular Volume 95 fL (79-100) Mean Corpuscular Hemoglobin 32 pg (25-35) Mean Corpuscular Hemoglobin Concent 34 g/dL (31-37) Red Cell Distribution Width 14.6 % (11.5-14.5) Platelet Count 228 x10^3/uL (140-400) Neutrophils (%) (Auto) 52 % (31-73) Lymphocytes (%) (Auto) 35 % (24-48) Monocytes (%) (Auto) 11 % (0-9) Eosinophils (%) (Auto) 2 % (0-3) Basophils (%) (Auto) 0 % (0-3) Neutrophils # (Auto) 3.7 x10^3uL (1.8-7.7) Lymphocytes # (Auto) 2.5 x10^3/uL (1.0-4.8) Monocytes # (Auto) 0.8 x10^3/uL (0.0-1.1) Eosinophils # (Auto) 0.1 x10^3/uL (0.0-0.7) Basophils # (Auto) 0.0 x10^3/uL (0.0-0.2) Sodium Level 141 mmol/L (136-145) Potassium Level 3.2 mmol/L (3.5-5.1) Chloride Level 105 mmol/L (98-107) Carbon Dioxide Level 27 mmol/L (21-32) Anion Gap 9 (6-14) Blood Urea Nitrogen 14 mg/dL (8-26) Creatinine 1.0 mg/dL (0.7-1.3) Estimated GFR (Cockcroft-Gault) 87.9 BUN/Creatinine Ratio 14 (6-20) Glucose Level 78 mg/dL (70-99) Calcium Level 8.4 mg/dL (8.5-10.1) Total Bilirubin 0.5 mg/dL (0.2-1.0) Aspartate Amino Transf (AST/SGOT) 16 U/L (15-37) Alanine Aminotransferase (ALT/SGPT) 14 U/L (16-63) Alkaline Phosphatase 60 U/L (46-116) Total Protein 6.1 g/dL (6.4-8.2) Albumin 2.9 g/dL (3.4-5.0) Albumin/Globulin Ratio 0.9 (1.0-1.7) Triglycerides Level 88 mg/dL (0-150) Cholesterol Level 128 mg/dL (0-200) LDL Cholesterol, Calculated 49 mg/dL (0-100) VLDL Cholesterol, Calculated 18 mg/dL (0-40) Non-HDL Cholesterol Calculated 67 mg/dL (0-129) HDL Cholesterol 61 mg/dL (40-60) Cholesterol/HDL Ratio 2.1 Prothrombin Time 18.1 SEC (11.7-14.0) Prothromb Time International Ratio 1.6 (0.8-1.1) Laboratory Tests Test 08/20/18 04:00 08/20/18 10:40 White Blood Count 7.2 x10^3/uL (4.0-11.0) Red Blood Count 4.43 x10^6/uL (4.30-5.70) Hemoglobin 14.1 g/dL (13.0-17.5) Hematocrit 41.9 % (39.0-53.0) Mean Corpuscular Volume 95 fL (79-100) Mean Corpuscular Hemoglobin 32 pg (25-35) Mean Corpuscular Hemoglobin Concent 34 g/dL (31-37) Red Cell Distribution Width 14.6 % (11.5-14.5) Platelet Count 228 x10^3/uL (140-400) Neutrophils (%) (Auto) 52 % (31-73) Lymphocytes (%) (Auto) 35 % (24-48) Monocytes (%) (Auto) 11 % (0-9) Eosinophils (%) (Auto) 2 % (0-3) Basophils (%) (Auto) 0 % (0-3) Neutrophils # (Auto) 3.7 x10^3uL (1.8-7.7) Lymphocytes # (Auto) 2.5 x10^3/uL (1.0-4.8) Monocytes # (Auto) 0.8 x10^3/uL (0.0-1.1) Eosinophils # (Auto) 0.1 x10^3/uL (0.0-0.7) Basophils # (Auto) 0.0 x10^3/uL (0.0-0.2) Sodium Level 141 mmol/L (136-145) Potassium Level 3.2 mmol/L (3.5-5.1) Chloride Level 105 mmol/L (98-107) Carbon Dioxide Level 27 mmol/L (21-32) Anion Gap 9 (6-14) Blood Urea Nitrogen 14 mg/dL (8-26) Creatinine 1.0 mg/dL (0.7-1.3) Estimated GFR (Cockcroft-Gault) 87.9 BUN/Creatinine Ratio 14 (6-20) Glucose Level 78 mg/dL (70-99) Calcium Level 8.4 mg/dL (8.5-10.1) Total Bilirubin 0.5 mg/dL (0.2-1.0) Aspartate Amino Transf (AST/SGOT) 16 U/L (15-37) Alanine Aminotransferase (ALT/SGPT) 14 U/L (16-63) Alkaline Phosphatase 60 U/L (46-116) Total Protein 6.1 g/dL (6.4-8.2) Albumin 2.9 g/dL (3.4-5.0) Albumin/Globulin Ratio 0.9 (1.0-1.7) Triglycerides Level 88 mg/dL (0-150) Cholesterol Level 128 mg/dL (0-200) LDL Cholesterol, Calculated 49 mg/dL (0-100) VLDL Cholesterol, Calculated 18 mg/dL (0-40) Non-HDL Cholesterol Calculated 67 mg/dL (0-129) HDL Cholesterol 61 mg/dL (40-60) Cholesterol/HDL Ratio 2.1 Prothrombin Time 18.1 SEC (11.7-14.0) Prothromb Time International Ratio 1.6 (0.8-1.1) Microbiology 08/16/18 Blood Culture - Preliminary, Resulted NO GROWTH AFTER 4 DAYS Medications Current Medications Albuterol Sulfate (Ventolin Neb Soln) 2.5 mg STK-MED ONCE .ROUTE ; Start at 02:00; Stop 08/16/18 at 02:01; Status DC Ipratropium [place] (Atrovent) 0.5 mg STK-MED ONCE .ROUTE ; Start 08/16/18 at 02:00; Stop 08/16/18 at 02:01; Status DC Sodium Chloride 1,000 ml @ 100 mls/hr Q10H IV Last administered on 08/16/18at 02:24; Start 08/16/18 at 02:30; Stop 08/16/18 at 12:29; Status DC Methylprednisolone Sodium Succinate (SOLU-Medrol 125MG VIAL) 125 mg 1X ONCE IV Last administered on 08/16/18at 02:24; Start 08/16/18 at 02:30; Stop at 02:31; Status DC Albuterol Sulfate (Ventolin Neb Soln) 10 mg 1X ONCE CONT NEB Last administered on 08/16/18at 02:06; Start 08/16/18 at 02:00; Stop 08/16/18 at 02 :09; Status DC Ipratropium [place] (Atrovent) 0.5 mg 1X ONCE NEB Last administered on at 02:06; Start 08/16/18 at 02:00; Stop 08/16/18 at 02:09; Status DC Sodium Chloride 1,000 ml @ 100 mls/hr Q10H IV Last administered on 08/17/18at 01:24; Start 08/16/18 at 04:18; Stop 08/17/18 at 04:17; Status DC Acetaminophen (Tylenol) 650 mg PRN Q4HRS PRN PO FEVER; Start 08/16/18 at 04:30 ; Stop 08/16/18 at 09:03; Status DC Albuterol/ Ipratropium (Duoneb) 3 ml RTQID NEB ; Start 08/16/18 at 08:00; Stop 08/16/18 at 09:04; Status DC Clopidogrel Bisulfate (Plavix) 75 mg DAILY PO Last administered on 08/20/18at 08 :56; Start 08/16/18 at 09:00 Digoxin (Lanoxin) 125 mcg DAILY PO Last administered on 08/20/18at 08:57; Start 08/16/18 at 09:00 Diphenhydramine HCl (Benadryl) 50 mg PRN Q6HRS PRN PO ITCHING Last administered on 08/18/18at 23:38; Start 08/16/18 at 08:45 Albuterol Sulfate (Ventolin Neb Soln) 2.5 mg PRN Q6HRS PRN NEB SHORTNESS OF BREATH; Start 08/16/18 at 09:15 Metoprolol Succinate (Toprol Xl) 25 mg DAILY PO Last administered on 08/20/18at 08:59; Start 08/16/18 at 09:00 Rivaroxaban (Xarelto) 20 mg DAILYWSUP PO Last administered on 08/19/18at 17:47; Start 08/16/18 at 17:00 Tamsulosin HCl (Flomax) 0.4 mg HS PO Last administered on 08/19/18at 20:45; Start 08/16/18 at 21:00 Trazodone HCl (Desyrel) 100 mg HS PO Last administered on 08/19/18at 20:45; Start 08/16/18 at 21:00 Non-Formulary Medication (Albuterol Sulfate (Proair Hfa Inhaler)) 1 puff PRN Q6HRS PRN INH SHORTNESS OF BREATH; Start 08/16/18 at 08:45; Status UNV Gabapentin (Neurontin) 300 mg PRN TID PRN PO NERVE PAIN Last administered on at 14:57; Start 08/16/18 at 09:00 Lisinopril (Prinivil) 2.5 mg DAILY PO Last administered on 08/19/18at 07:54; Start 08/16/18 at 09:00; Stop 08/19/18 at 15:03; Status DC Mirtazapine (Remeron) 15 mg QHS PO Last administered on 08/19/18at 20:45; Start 08/16/18 at 21:00 Simvastatin (Zocor) 20 mg HS PO Last administered on 08/19/18at 20:45; Start at 21:00 Clopidogrel Bisulfate (Plavix) 75 mg DAILY PO ; Start 08/16/18 at 09:00; Status UNV Digoxin (Lanoxin) 125 mcg DAILY PO ; Start 08/16/18 at 09:00; Status UNV Metoprolol Succinate (Toprol Xl) 25 mg DAILY PO ; Start 08/16/18 at 09:00; Status UNV Rivaroxaban (Xarelto) 20 mg HS PO ; Start 08/16/18 at 21:00; Status UNV Tamsulosin HCl (Flomax) 0.4 mg HS PO ; Start 08/16/18 at 21:00; Status UNV Trazodone HCl (Desyrel) 100 mg HS PO ; Start 08/16/18 at 21:00; Status UNV Non-Formulary Medication (Gabapentin ) 300 mg PRN TID PRN PO PAIN; Start 08/16 at 09:00; Status UNV Non-Formulary Medication (Lisinopril ) 2.5 mg DAILY PO ; Start 08/16/18 at 09: 00; Status UNV Non-Formulary Medication (Mirtazapine (Remeron)) 1 tab QHS PO ; Start 08/16/18 at 21:00; Status UNV Non-Formulary Medication (Simvastatin ) 1 tab QHS PO ; Start 08/16/18 at 21:00 ; Status UNV Methylprednisolone Sodium Succinate (SOLU-Medrol 40MG VIAL) 60 mg BID92 IV Last administered on 08/18/18at 09:18; Start 08/16/18 at 09:30; Stop 08/18/18 at 10:22; Status DC Acetaminophen (Tylenol) 650 mg PRN Q6HRS PRN PO MILD PAIN / TEMP; Start at 09:00 Oxycodone HCl (Roxicodone) 20 mg TID PO Last administered on 08/20/18at 15:28; Start 08/16/18 at 09:30 Albuterol/ Ipratropium (Duoneb) 3 ml RTQID NEB Last administered on 08/20/18at 12:43; Start 08/16/18 at 12:00 Levofloxacin/ Dextrose 100 ml @ 100 mls/hr Q24H IV Last administered on at 09:49; Start 08/16/18 at 10:00; Stop 08/17/18 at 10:07; Status DC Piperacillin Sod/ Tazobactam Sod 3.375 gm/Sodium Chloride 50 ml @ 100 mls/hr Q6HRS IV Last administered on 08/19/18at 12:24; Start 08/16/18 at 12:00; Stop 08/19/18 at 13:47; Status DC Linezolid (Zyvox) 600 mg BID PO Last administered on 08/17/18at 08:24; Start 08/16/18 at 11:30; Stop 08/17/18 at 10:07; Status DC Lactobacillus Rhamnosus (Culturelle) 1 cap BID PO Last administered on at 08:55; Start 08/16/18 at 21:00 Pantoprazole Sodium (Protonix) 40 mg DAILYAC PO Last administered on 08/20/18at 08:56; Start 08/17/18 at 14:00 Polyethylene Glycol (miraLAX PACKET) 17 gm DAILY PO ; Start 08/18/18 at 11:00 Methylprednisolone Sodium Succinate (SOLU-Medrol 40MG VIAL) 60 mg DAILY08 IV Last administered on 08/19/18at 07:46; Start 08/19/18 at 08:00; Stop 08/19/18 at 10:28; Status DC Info (Anti-Coagulation Monitoring By Pharmacy) 1 each PRN DAILY PRN MC SEE COMMENTS Last administered on 08/19/18at 08:01; Start 08/18/18 at 12:15 Quetiapine Fumarate (SEROquel) 25 mg 1X ONCE PO Last administered on at 23:37; Start 08/18/18 at 22:45; Stop 08/18/18 at 22:46; Status DC Quetiapine Fumarate (SEROquel) 25 mg ONCE ONCE PO Last administered on at 07:48; Start 08/19/18 at 08:00; Stop 08/19/18 at 08:01; Status DC Lorazepam (Ativan) 0.5 mg 1X ONCE IV Last administered on 08/18/18at 23:39; Start 08/18/18 at 22:45; Stop 08/18/18 at 22:46; Status DC Lorazepam (Ativan) 0.5 mg PRN Q6HRS PRN IV ANXIETY / AGITATION Last administered on 08/20/18at 13:38; Start 08/18/18 at 22:30 Thiamine Mononitrate (Vitamin B-1) 100 mg DAILY PO Last administered on at 08:56; Start 08/19/18 at 11:00 Multivitamins (Thera M Plus) 1 tab DAILY PO Last administered on 08/20/18at 08: 55; Start 08/19/18 at 11:00 Amoxicillin/ Clavulanate Potassium (Augmentin 875/ 125mg) 1 tab BID PO Last administered on 08/20/18at 08:55; Start 08/19/18 at 21:00 Lisinopril (Prinivil) 10 mg DAILY PO Last administered on 08/20/18at 08:58; Start 08/20/18 at 09:00 Potassium Chloride (Klor-Con) 40 meq 1X ONCE PO Last administered on at 08:56; Start 08/20/18 at 08:00; Stop 08/20/18 at 08:01; Status DC Active Scripts Active Proair Hfa Inhaler (Albuterol Sulfate) 8.5 Gm Hfa.aer.ad 1 Puff INH PRN Q6HRS PRN Benadryl (Diphenhydramine Hcl) 25 Mg Capsule 2 Cap PO Q6HRS PRN Reported Duoneb 0.5-3(2.5) Mg/3 Ml (Albuterol/Ipratropium) 3 Ml Ampul.neb 3 Ml NEB QIDPRN PRN Remeron (Mirtazapine) 15 Mg Tablet 1 Tab PO QHS Tamsulosin Hcl 0.4 Mg Cap.er.24h 1 Cap PO HS Metoprolol Succinate ( Xl ) (Metoprolol Succinate) 25 Mg Tab.er.24h 1 Tab PO DAILY Trazodone Hcl 50 Mg Tablet 2 Tab PO HS 100 mg @ HS Xarelto (Rivaroxaban) 15 Mg Tablet 20 Mg PO HS Simvastatin 20 Mg Tablet 1 Tab PO QHS Lisinopril 5 Mg Tablet 2.5 Mg PO DAILY Gabapentin 300 Mg Capsule 300 Mg PO PRN TID PRN can take 1 or 2 capsules Plavix (Clopidogrel Bisulfate) 75 Mg Tablet 75 Mg PO DAILY Digoxin 125 Mcg Tablet 125 Mcg PO DAILY Vitals/I & O Vital Sign - Last 24 Hours 08/19/18 08/19/18 08/19/18 08/19/18 18:54 19:54 20:00 20:45 Temp 98.2 98.2 Pulse 87 Resp 14 B/P (MAP) 145/91 (109) Pulse Ox 97 O2 Delivery Room Air Room Air Room Air Room Air 08/19/18 08/20/18 08/20/18 08/20/18 23:00 03:41 07:30 07:36 Temp 97.8 97.8 97.8 97.8 97.8 97.8 Pulse 97 81 84 Resp 16 16 16 B/P (MAP) 151/98 (115) 139/90 (106) 136/91 (106) Pulse Ox 97 97 97 O2 Delivery Room Air Room Air Room Air Room Air 08/20/18 08/20/18 08/20/18 08/20/18 08:57 08:58 08:59 09:19 Pulse 92 92 92 B/P (MAP) 146/93 146/93 Pulse Ox 96 O2 Delivery Room Air 08/20/18 08/20/18 08/20/18 08/20/18 10:24 11:00 11:24 12:43 Temp 97.8 97.8 Pulse 87 Resp 16 16 B/P (MAP) 132/86 (101) Pulse Ox 97 96 O2 Delivery Room Air Room Air Room Air 08/20/18 08/20/18 15:00 15:28 Temp 97.9 97.9 Pulse 86 Resp 18 B/P (MAP) 117/93 (101) Pulse Ox 99 O2 Delivery Room Air Room Air Intake and Output 08/19/18 08/19/18 08/20/18 15:00 23:00 07:00 Intake Total 40 ml 200 ml 300 ml Output Total 700 ml 850 ml 150 ml Balance -660 ml -650 ml 150 ml RENATO SEO MD Aug 20, 2018 16:34
[2018-08-20] MEDS: RIVAROXABAN 10 MG TABLET. PO SCH (17:01)
[2018-08-20 19:00] VITALS: BP 117/91
[2018-08-20] MEDS: MIRTAZAPINE 15 MG TABLET PO SCH (20:40)
[2018-08-20] MEDS: traZODone 50 MG TABLET. PO SCH (20:40)
[2018-08-20] MEDS: SIMVASTATIN 20 MG TABLET PO SCH (20:41)
[2018-08-20] MEDS: TAMSULOSIN 0.4 MG CAP.ER.24H. PO SCH (20:41)
[2018-08-20 23:00] VITALS: BP 93/66
[2018-08-21 03:00] VITALS: BP 104/62
[2018-08-21 05:47] LABS: ALBUMIN 2.8 g/dL (3.4-5.0); ALBUMIN/GLOBULIN RATIO 0.9 (1.0-1.7); CALCIUM 8.3 mg/dL (8.5-10.1); CREATININE 1.1 mg/dL (0.7-1.3); GFR 78.7; POTASSIUM 3.4 mmol/L (3.5-5.1); TOTAL BILIRUBIN 0.5 mg/dL (0.2-1.0); TOTAL PROTEIN 5.9 g/dL (6.4-8.2)
[2018-08-21 06:44] VITALS: BP 113/67
[2018-08-21] MEDS: IPRATRPIUM/ALBUTEROL 0.5/2.5MG 3 ML NEBU. NEB SCH ×4 (07:23→19:44)
--- NOTE | 2018-08-21 09:13 | PDOC ---
PULMONARY PROGRESS NOTES Subjective no cough/ soa Vitals Vital Signs Date Time Temp Pulse Resp B/P (MAP) Pulse Ox O2 Delivery O2 Flow Rate FiO2 08/21/18 07:25 94 Room Air 08/21/18 06:44 97.4 88 18 113/67 (82) 97.4 General: Alert, No acute distress Lungs: Clear Cardiovascular: S1 Abdomen: Soft Neuro Exam: Alert Extremities: No Edema Labs Laboratory Tests Test 08/19/18 14:15 08/20/18 04:00 08/20/18 10:40 08/21/18 04:00 Troponin I Quantitative 0.029 ng/mL (0.000-0.055) White Blood Count 7.2 x10^3/uL (4.0-11.0) Red Blood Count 4.43 x10^6/uL (4.30-5.70) Hemoglobin 14.1 g/dL (13.0-17.5) Hematocrit 41.9 % (39.0-53.0) Mean Corpuscular Volume 95 fL (79-100) Mean Corpuscular Hemoglobin 32 pg (25-35) Mean Corpuscular Hemoglobin Concent 34 g/dL (31-37) Red Cell Distribution Width 14.6 % (11.5-14.5) Platelet Count 228 x10^3/uL (140-400) Neutrophils (%) (Auto) 52 % (31-73) Lymphocytes (%) (Auto) 35 % (24-48) Monocytes (%) (Auto) 11 % (0-9) Eosinophils (%) (Auto) 2 % (0-3) Basophils (%) (Auto) 0 % (0-3) Neutrophils # (Auto) 3.7 x10^3uL (1.8-7.7) Lymphocytes # (Auto) 2.5 x10^3/uL (1.0-4.8) Monocytes # (Auto) 0.8 x10^3/uL (0.0-1.1) Eosinophils # (Auto) 0.1 x10^3/uL (0.0-0.7) Basophils # (Auto) 0.0 x10^3/uL (0.0-0.2) Sodium Level 141 mmol/L (136-145) 143 mmol/L (136-145) Potassium Level 3.2 mmol/L (3.5-5.1) 3.4 mmol/L (3.5-5.1) Chloride Level 105 mmol/L (98-107) 107 mmol/L (98-107) Carbon Dioxide Level 27 mmol/L (21-32) 27 mmol/L (21-32) Anion Gap 9 (6-14) 9 (6-14) Blood Urea Nitrogen 14 mg/dL (8-26) 16 mg/dL (8-26) Creatinine 1.0 mg/dL (0.7-1.3) 1.1 mg/dL (0.7-1.3) Estimated GFR (Cockcroft-Gault) 87.9 78.7 BUN/Creatinine Ratio 14 (6-20) 15 (6-20) Glucose Level 78 mg/dL (70-99) 110 mg/dL (70-99) Calcium Level 8.4 mg/dL (8.5-10.1) 8.3 mg/dL (8.5-10.1) Total Bilirubin 0.5 mg/dL (0.2-1.0) 0.5 mg/dL (0.2-1.0) Aspartate Amino Transf (AST/SGOT) 16 U/L (15-37) 14 U/L (15-37) Alanine Aminotransferase (ALT/SGPT) 14 U/L (16-63) 15 U/L (16-63) Alkaline Phosphatase 60 U/L (46-116) 62 U/L (46-116) Total Protein 6.1 g/dL (6.4-8.2) 5.9 g/dL (6.4-8.2) Albumin 2.9 g/dL (3.4-5.0) 2.8 g/dL (3.4-5.0) Albumin/Globulin Ratio 0.9 (1.0-1.7) 0.9 (1.0-1.7) Triglycerides Level 88 mg/dL (0-150) Cholesterol Level 128 mg/dL (0-200) LDL Cholesterol, Calculated 49 mg/dL (0-100) VLDL Cholesterol, Calculated 18 mg/dL (0-40) Non-HDL Cholesterol Calculated 67 mg/dL (0-129) HDL Cholesterol 61 mg/dL (40-60) Cholesterol/HDL Ratio 2.1 Prothrombin Time 18.1 SEC (11.7-14.0) Prothromb Time International Ratio 1.6 (0.8-1.1) Laboratory Tests Test 08/20/18 10:40 08/21/18 04:00 Prothrombin Time 18.1 SEC (11.7-14.0) Prothromb Time International Ratio 1.6 (0.8-1.1) Sodium Level 143 mmol/L (136-145) Potassium Level 3.4 mmol/L (3.5-5.1) Chloride Level 107 mmol/L (98-107) Carbon Dioxide Level 27 mmol/L (21-32) Anion Gap 9 (6-14) Blood Urea Nitrogen 16 mg/dL (8-26) Creatinine 1.1 mg/dL (0.7-1.3) Estimated GFR (Cockcroft-Gault) 78.7 BUN/Creatinine Ratio 15 (6-20) Glucose Level 110 mg/dL (70-99) Calcium Level 8.3 mg/dL (8.5-10.1) Total Bilirubin 0.5 mg/dL (0.2-1.0) Aspartate Amino Transf (AST/SGOT) 14 U/L (15-37) Alanine Aminotransferase (ALT/SGPT) 15 U/L (16-63) Alkaline Phosphatase 62 U/L (46-116) Total Protein 5.9 g/dL (6.4-8.2) Albumin 2.8 g/dL (3.4-5.0) Albumin/Globulin Ratio 0.9 (1.0-1.7) Medications Active Scripts Medications Dose Route/Sig Max Daily Dose Days Date Category Dose Instructions Duoneb 0.5-3(2.5) Mg/3 Ml (Albuterol/Ipratropium) 3 Ml Ampul.neb 3 Ml NEB QIDPRN PRN 08/16/18 Reported Remeron (Mirtazapine) 15 Mg Tablet 1 Tab PO QHS 08/16/18 Reported Proair Hfa Inhaler (Albuterol Sulfate) 8.5 Gm Hfa.aer.ad 1 Puff INH PRN Q6HRS PRN 07/01/18 Rx Benadryl (Diphenhydramine Hcl) 25 Mg Capsule 2 Cap PO Q6HRS PRN 02/24/17 Rx Tamsulosin Hcl 0.4 Mg Cap.er.24h 1 Cap PO HS 02/14/17 Reported Metoprolol Succinate ( Xl ) (Metoprolol Succinate) 25 Mg Tab.er.24h 1 Tab PO DAILY 02/14/17 Reported Trazodone Hcl 50 Mg Tablet 2 Tab PO HS 03/26/15 Reported 100 mg @ HS Xarelto (Rivaroxaban) 15 Mg Tablet 20 Mg PO HS 03/26/15 Reported Simvastatin 20 Mg Tablet 1 Tab PO QHS 10/18/14 Reported Lisinopril 5 Mg Tablet 2.5 Mg PO DAILY 01/29/14 Reported Gabapentin 300 Mg Capsule 300 Mg PO PRN TID PRN 01/29/14 Reported can take 1 or 2 capsules Plavix (Clopidogrel Bisulfate) 75 Mg Tablet 75 Mg PO DAILY 01/29/14 Reported Digoxin 125 Mcg Tablet 125 Mcg PO DAILY 01/29/14 Reported Impression . 1. Clinical pneumonia. 2. Acute exacerbation of chronic obstructive pulmonary disease. resolved 3. Tobacco dependent. 4. Acute purulent bronchitis. 5. ETOH abuse, encephalopathy, resolved 6. CT chest reviewed. bronchiectasis/ LLL mucous plug Plan . 1. CT chest reviewed. bronchiectasis/ LLL mucous plug/ pulmonary toilet 2. Tessalon Perles. 3. off Steroids 4. Continue antibiotics ,PO Augmentin 5. Pepcid for possible reflux. 6. d/w RN/ OK WITH DC PULMONARY GARCIA VERONICA GASTELUM MD Aug 21, 2018 09:13
[2018-08-21] MEDS: LACTOBACILLUS RHAMNOSUS GG 1 CAPSULE. PO SCH ×2 (09:14→20:16)
[2018-08-21] MEDS: LISINOPRIL 10 MG TABLET PO SCH (09:14)
[2018-08-21] MEDS: DIGOXIN 125 MCG TABLET. PO SCH (09:14)
[2018-08-21] MEDS: THIAMINE 100 MG TABLET. PO SCH (09:15)
[2018-08-21] MEDS: AMOXICILLIN/K CLAV 875/125MG TABLET. PO SCH ×2 (09:15→20:16)
[2018-08-21] MEDS: CLOPIDOGREL BISULFATE 75 MG TABLET PO SCH (09:15)
[2018-08-21] MEDS: METOPROLOL SUCC 24HR ER 25 MG TAB.ER.24H. PO SCH (09:15)
[2018-08-21] MEDS: MULTIVITAMIN with MINERAL TABLET. PO SCH (09:15)
[2018-08-21] MEDS: PANTOPRAZOLE 40 MG TABLET.DR. PO SCH (09:15)
[2018-08-21] MEDS: oxyCODONE IR 5 MG TABLET PO SCH ×3 (09:16→20:18)
[2018-08-21] MEDS: POLYETHYLENE GLYCOL 3350 17 GM PACKET. PO SCH (09:19)
[2018-08-21 10:57] VITALS: BP 106/67
[2018-08-21] MEDS ORDERED: POTASSIUM CHLORIDE 20 MEQ TABLET.ER. PO ONE (11:30)
--- NOTE | 2018-08-21 12:12 | PDOC ---
PROGRESS NOTES Subjective Subjective no new problems Objective Objective Vital Signs Date Time Temp Pulse Resp B/P (MAP) Pulse Ox O2 Delivery O2 Flow Rate FiO2 08/21/18 11:25 Room Air 08/21/18 10:57 98.3 95 18 106/67 (80) 96 98.3 Intake and Output 08/21/18 07:00 Intake Total 350 ml Output Total 175 ml Balance 175 ml Intake Oral 350 ml Output Urine Total 175 ml # Voids 4 # Bowel Movements 3 Physical Exam Abdomen: Normal bowel sounds Heart: Regular rate Extremities: No edema, Normal pulses General: mild distress HEENT: Atraumatic, Mucous membr. moist/pink Lungs: Other (mildly decreased breath sounds) MUSCULOSKELETAL: No deformity, Osteoarthritic changes both hands Neuro: Normal speech, Sensation intact Psych/Mental Status: Mood NL Skin: No breakdown, No significant lesion Assessment Assessment 1. Sepsis. 2. Pneumonia. 3. Acute exacerbation of chronic obstructive pulmonary disease. 4. Coronary artery disease. 5. Peripheral neuropathy. 6. History of Jhaveri's palsy. 7. Chronic low back pain, with back surgeries x 2. 8. Chronic diastolic congestive heart failure with ejection fraction of 55% and AICD. 9. Hypertensive crisis. 10. Hyperlipidemia. 11. History of repair of the aortic aneurysm as well as right common iliac artery aneurysm. 12. History of deep venous thrombosis. 13. Osteoarthritis. 14. Diverticulosis. PLAN: po augment[facility] rehab pt/ot d/c plans for thursday. labs noted. spoke with staff. Continue Xarelto for atrial fibrillation that is chronic. I will start him on IV Levaquin. Consult Dr. Resendiz for Pulmonary evaluation and management and Dr. Rushing for Infectious Disease evaluation and management. Continue breathing treatment. The patient has been given IV fluids. I have started him on IV steroids. We will monitor blood sugars. For details, please review the orders. Pneumonia - clinically improving however he continues to have a lot of coughing. CT chest showed bronchiectasis. Discussed with Dr. Blanchard. I will discontinue IV steroids. This will also help his agitation. Possible dysphagia- patient has an abnormal CT with the fluid level in the esophagus. Patient states that he had esophageal surgery previously. I'll consult Dr. Banks for GI evaluation and management. Discussed with Dr. Banks. 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 He will need an EGD as outpatient. These patients are at high risk for squamous cell carcinoma. Acute metabolic encephalopathy likely due to alcohol withdrawal. Continue IV or by mouth Ativan as needed. Clinically improving Continue cardiac monitoring. Alcoholism - patient is strongly advised to avoid alcohol. Consult PAT team. The patient is advised to participate in addiction recovery program after discharge Cardiac arrhythmia and elevated troponin level- EKG reviewed. Cardiology consult obtained. Continue cardiac monitoring. Hypokalemia- potassium is 3.2. Replace potassium. Low TSH- this is due to IV steroids that he was receiving prior to the test. No intervention necessary. Comment Review of Relevant I have reviewed the following items mckayla (where applicable) has been applied. Labs Laboratory Tests Test 08/21/18 04:00 Sodium Level 143 mmol/L (136-145) Potassium Level 3.4 mmol/L (3.5-5.1) Chloride Level 107 mmol/L (98-107) Carbon Dioxide Level 27 mmol/L (21-32) Anion Gap 9 (6-14) Blood Urea Nitrogen 16 mg/dL (8-26) Creatinine 1.1 mg/dL (0.7-1.3) Estimated GFR (Cockcroft-Gault) 78.7 BUN/Creatinine Ratio 15 (6-20) Glucose Level 110 mg/dL (70-99) Calcium Level 8.3 mg/dL (8.5-10.1) Total Bilirubin 0.5 mg/dL (0.2-1.0) Aspartate Amino Transf (AST/SGOT) 14 U/L (15-37) Alanine Aminotransferase (ALT/SGPT) 15 U/L (16-63) Alkaline Phosphatase 62 U/L (46-116) Total Protein 5.9 g/dL (6.4-8.2) Albumin 2.8 g/dL (3.4-5.0) Albumin/Globulin Ratio 0.9 (1.0-1.7) Microbiology 08/16/18 Blood Culture - Final, Complete NO GROWTH AFTER 5 DAYS Medications Current Medications Potassium Chloride (Klor-Con) 20 meq 1X ONCE PO ; Start 08/21/18 at 11:30; Stop 08/21/18 at 11:31; Status DC Vitals/I & O Vital Sign - Last 24 Hours 08/20/18 08/20/18 08/20/18 08/20/18 12:43 15:00 15:28 17:16 Temp 97.9 97.9 Pulse 86 Resp 18 B/P (MAP) 117/93 (101) Pulse Ox 96 99 96 O2 Delivery Room Air Room Air Room Air Room Air 08/20/18 08/20/18 08/20/18 08/20/18 19:00 20:08 20:08 20:41 Temp 97.6 97.6 Pulse 83 Resp 18 B/P (MAP) 117/91 (100) Pulse Ox 96 94 94 O2 Delivery Room Air Room Air Room Air Room Air 08/20/18 08/21/18 08/21/18 08/21/18 23:00 03:00 06:44 07:25 Temp 97.7 97.5 97.4 97.7 97.5 97.4 Pulse 86 85 88 Resp 16 16 18 B/P (MAP) 93/66 (75) 104/62 (76) 113/67 (82) Pulse Ox 93 97 95 94 O2 Delivery Room Air Room Air Room Air Room Air 08/21/18 08/21/18 08/21/18 08/21/18 08:00 09:14 09:14 09:15 Pulse 88 88 88 B/P (MAP) 113/67 113/67 113/67 O2 Delivery Room Air 08/21/18 08/21/18 08/21/18 08/21/18 09:16 10:16 10:57 11:25 Temp 98.3 98.3 Pulse 95 Resp 17 18 18 B/P (MAP) 106/67 (80) Pulse Ox 94 94 96 O2 Delivery Room Air Room Air Room Air Room Air Intake and Output 08/20/18 08/20/18 08/21/18 15:00 23:00 07:00 Intake Total 0 ml 200 ml 150 ml Output Total 0 ml 175 ml Balance 0 ml 200 ml -25 ml ELDON ROSALES MD Aug 21, 2018 12:12
[2018-08-21 14:45] VITALS: BP 132/78
[2018-08-21] MEDS: RIVAROXABAN 10 MG TABLET. PO SCH (17:53)
[2018-08-21 19:00] VITALS: BP 183/85
[2018-08-21] MEDS: TAMSULOSIN 0.4 MG CAP.ER.24H. PO SCH (20:16)
[2018-08-21] MEDS: SIMVASTATIN 20 MG TABLET PO SCH (20:16)
[2018-08-21] MEDS: MIRTAZAPINE 15 MG TABLET PO SCH (20:17)
[2018-08-21] MEDS: traZODone 50 MG TABLET. PO SCH (20:17)
[2018-08-22 05:47] LABS: ALBUMIN 2.7 g/dL (3.4-5.0); ALBUMIN/GLOBULIN RATIO 0.9 (1.0-1.7); CALCIUM 8.4 mg/dL (8.5-10.1); GFR 87.9; POTASSIUM 3.5 mmol/L (3.5-5.1); TOTAL BILIRUBIN 0.6 mg/dL (0.2-1.0); TOTAL PROTEIN 5.8 g/dL (6.4-8.2)
[2018-08-22 06:53] VITALS: BP 139/89
[2018-08-22] MEDS: PANTOPRAZOLE 40 MG TABLET.DR. PO SCH (07:21)
[2018-08-22] MEDS: IPRATRPIUM/ALBUTEROL 0.5/2.5MG 3 ML NEBU. NEB SCH ×4 (08:01→20:24)
[2018-08-22] MEDS: LACTOBACILLUS RHAMNOSUS GG 1 CAPSULE. PO SCH ×2 (08:19→20:15)
[2018-08-22] MEDS: MULTIVITAMIN with MINERAL TABLET. PO SCH (08:19)
[2018-08-22] MEDS: THIAMINE 100 MG TABLET. PO SCH (08:19)
[2018-08-22] MEDS: POLYETHYLENE GLYCOL 3350 17 GM PACKET. PO SCH ×2 (08:19→08:25)
[2018-08-22] MEDS: AMOXICILLIN/K CLAV 875/125MG TABLET. PO SCH ×2 (08:19→20:16)
[2018-08-22] MEDS: CLOPIDOGREL BISULFATE 75 MG TABLET PO SCH (08:20)
[2018-08-22] MEDS: METOPROLOL SUCC 24HR ER 25 MG TAB.ER.24H. PO SCH (08:21)
[2018-08-22] MEDS: LISINOPRIL 10 MG TABLET PO SCH (08:21)
[2018-08-22] MEDS: oxyCODONE IR 5 MG TABLET PO SCH ×3 (08:22→20:16)
[2018-08-22] MEDS: DIGOXIN 125 MCG TABLET. PO SCH (08:22)
[2018-08-22 11:12] VITALS: BP 127/70
--- NOTE | 2018-08-22 11:34 | PDOC ---
PROGRESS NOTES Subjective Subjective pt want to go home Objective Objective Vital Signs Date Time Temp Pulse Resp B/P (MAP) Pulse Ox O2 Delivery O2 Flow Rate FiO2 08/22/18 11:12 98.5 94 16 127/70 (89) 95 Room Air 98.5 08/21/18 14:00 2.0 Intake and Output 08/22/18 07:00 Intake Total 460 ml Output Total 0 ml Balance 460 ml Intake Oral 460 ml Output Urine Total 0 ml # Voids 2 Physical Exam Abdomen: Normal bowel sounds Heart: Regular rate Extremities: No edema, Normal pulses General: mild distress HEENT: Atraumatic, Mucous membr. moist/pink Lungs: Other (mildly decreased breath sounds) MUSCULOSKELETAL: No deformity, Osteoarthritic changes both hands Neuro: Normal speech, Sensation intact Psych/Mental Status: Mood NL Skin: No breakdown, No significant lesion Assessment Assessment 1. Sepsis. 2. Pneumonia. 3. Acute exacerbation of chronic obstructive pulmonary disease. 4. Coronary artery disease. 5. Peripheral neuropathy. 6. History of Jhaveri's palsy. 7. Chronic low back pain, with back surgeries x 2. 8. Chronic diastolic congestive heart failure with ejection fraction of 55% and AICD. 9. Hypertensive crisis. 10. Hyperlipidemia. 11. History of repair of the aortic aneurysm as well as right common iliac artery aneurysm. 12. History of deep venous thrombosis. 13. Osteoarthritis. 14. Diverticulosis. PLAN: po augmentin rehab pt/ot d/c plans for thursday. labs noted. spoke with staff. Comment Review of Relevant I have reviewed the following items mckayla (where applicable) has been applied. Labs Laboratory Tests Test 08/22/18 04:45 08/22/18 07:09 Sodium Level 142 mmol/L (136-145) Potassium Level 3.5 mmol/L (3.5-5.1) Chloride Level 107 mmol/L (98-107) Carbon Dioxide Level 27 mmol/L (21-32) Anion Gap 8 (6-14) Blood Urea Nitrogen 15 mg/dL (8-26) Creatinine 1.0 mg/dL (0.7-1.3) Estimated GFR (Cockcroft-Gault) 87.9 BUN/Creatinine Ratio 15 (6-20) Glucose Level 83 mg/dL (70-99) Calcium Level 8.4 mg/dL (8.5-10.1) Total Bilirubin 0.6 mg/dL (0.2-1.0) Aspartate Amino Transf (AST/SGOT) 11 U/L (15-37) Alanine Aminotransferase (ALT/SGPT) 14 U/L (16-63) Alkaline Phosphatase 65 U/L (46-116) Total Protein 5.8 g/dL (6.4-8.2) Albumin 2.7 g/dL (3.4-5.0) Albumin/Globulin Ratio 0.9 (1.0-1.7) Glucose (Fingerstick) 97 mg/dL (70-99) Microbiology 08/16/18 Blood Culture - Final, Complete NO GROWTH AFTER 5 DAYS Vitals/I & O Vital Sign - Last 24 Hours 08/21/18 08/21/18 08/21/18 08/21/18 14:00 14:45 16:43 19:00 Temp 97.9 98.6 97.9 98.6 Pulse 93 86 Resp 18 17 B/P (MAP) 132/78 (96) 183/85 (117) Pulse Ox 96 96 96 O2 Delivery Room Air Room Air Room Air Room Air O2 Flow Rate 2.0 08/21/18 08/21/18 08/21/18 08/22/18 19:44 20:00 23:00 03:00 Pulse 84 79 Resp 17 18 Pulse Ox 94 O2 Delivery Room Air Room Air Room Air Room Air 08/22/18 08/22/18 08/22/18 08/22/18 06:53 07:34 08:01 08:21 Temp 98.1 98.1 Pulse 74 88 Resp 16 B/P (MAP) 139/89 (106) 124/92 Pulse Ox 93 98 O2 Delivery Room Air Room Air Room Air 08/22/18 08/22/18 08/22/18 08:21 08:22 11:12 Temp 98.5 98.5 Pulse 87 86 94 Resp 16 B/P (MAP) 124/92 124/92 127/70 (89) Pulse Ox 95 O2 Delivery Room Air Intake and Output 08/21/18 08/21/18 08/22/18 15:00 23:00 07:00 Intake Total 220 ml 120 ml 120 ml Output Total 0 ml 0 ml 0 ml Balance 220 ml 120 ml 120 ml ELDON ROSALES MD Aug 22, 2018 11:34
--- NOTE | 2018-08-22 13:07 | PDOC ---
PULMONARY PROGRESS NOTES Subjective no cough/ soa Vitals Vital Signs Date Time Temp Pulse Resp B/P (MAP) Pulse Ox O2 Delivery O2 Flow Rate FiO2 08/22/18 12:01 98 Room Air 08/22/18 11:12 98.5 94 16 127/70 (89) 98.5 08/21/18 14:00 2.0 General: Alert, No acute distress Lungs: Clear Cardiovascular: S1 Abdomen: Soft Neuro Exam: Alert Extremities: No Edema Labs Laboratory Tests Test 08/21/18 04:00 08/22/18 04:45 08/22/18 07:09 08/22/18 12:42 Sodium Level 143 mmol/L (136-145) 142 mmol/L (136-145) Potassium Level 3.4 mmol/L (3.5-5.1) 3.5 mmol/L (3.5-5.1) Chloride Level 107 mmol/L (98-107) 107 mmol/L (98-107) Carbon Dioxide Level 27 mmol/L (21-32) 27 mmol/L (21-32) Anion Gap 9 (6-14) 8 (6-14) Blood Urea Nitrogen 16 mg/dL (8-26) 15 mg/dL (8-26) Creatinine 1.1 mg/dL (0.7-1.3) 1.0 mg/dL (0.7-1.3) Estimated GFR (Cockcroft-Gault) 78.7 87.9 BUN/Creatinine Ratio 15 (6-20) 15 (6-20) Glucose Level 110 mg/dL (70-99) 83 mg/dL (70-99) Calcium Level 8.3 mg/dL (8.5-10.1) 8.4 mg/dL (8.5-10.1) Total Bilirubin 0.5 mg/dL (0.2-1.0) 0.6 mg/dL (0.2-1.0) Aspartate Amino Transf (AST/SGOT) 14 U/L (15-37) 11 U/L (15-37) Alanine Aminotransferase (ALT/SGPT) 15 U/L (16-63) 14 U/L (16-63) Alkaline Phosphatase 62 U/L (46-116) 65 U/L (46-116) Total Protein 5.9 g/dL (6.4-8.2) 5.8 g/dL (6.4-8.2) Albumin 2.8 g/dL (3.4-5.0) 2.7 g/dL (3.4-5.0) Albumin/Globulin Ratio 0.9 (1.0-1.7) 0.9 (1.0-1.7) Glucose (Fingerstick) 97 mg/dL (70-99) 136 mg/dL (70-99) Laboratory Tests Test 08/22/18 04:45 08/22/18 07:09 08/22/18 12:42 Sodium Level 142 mmol/L (136-145) Potassium Level 3.5 mmol/L (3.5-5.1) Chloride Level 107 mmol/L (98-107) Carbon Dioxide Level 27 mmol/L (21-32) Anion Gap 8 (6-14) Blood Urea Nitrogen 15 mg/dL (8-26) Creatinine 1.0 mg/dL (0.7-1.3) Estimated GFR (Cockcroft-Gault) 87.9 BUN/Creatinine Ratio 15 (6-20) Glucose Level 83 mg/dL (70-99) Calcium Level 8.4 mg/dL (8.5-10.1) Total Bilirubin 0.6 mg/dL (0.2-1.0) Aspartate Amino Transf (AST/SGOT) 11 U/L (15-37) Alanine Aminotransferase (ALT/SGPT) 14 U/L (16-63) Alkaline Phosphatase 65 U/L (46-116) Total Protein 5.8 g/dL (6.4-8.2) Albumin 2.7 g/dL (3.4-5.0) Albumin/Globulin Ratio 0.9 (1.0-1.7) Glucose (Fingerstick) 97 mg/dL (70-99) 136 mg/dL (70-99) Medications Active Scripts Medications Dose Route/Sig Max Daily Dose Days Date Category Dose Instructions Duoneb 0.5-3(2.5) Mg/3 Ml (Albuterol/Ipratropium) 3 Ml Ampul.neb 3 Ml NEB QIDPRN PRN 08/16/18 Reported Remeron (Mirtazapine) 15 Mg Tablet 1 Tab PO QHS 08/16/18 Reported Proair Hfa Inhaler (Albuterol Sulfate) 8.5 Gm Hfa.aer.ad 1 Puff INH PRN Q6HRS PRN 07/01/18 Rx Benadryl (Diphenhydramine Hcl) 25 Mg Capsule 2 Cap PO Q6HRS PRN 02/24/17 Rx Tamsulosin Hcl 0.4 Mg Cap.er.24h 1 Cap PO HS 02/14/17 Reported Metoprolol Succinate ( Xl ) (Metoprolol Succinate) 25 Mg Tab.er.24h 1 Tab PO DAILY 02/14/17 Reported Trazodone Hcl 50 Mg Tablet 2 Tab PO HS 03/26/15 Reported 100 mg @ HS Xarelto (Rivaroxaban) 15 Mg Tablet 20 Mg PO HS 03/26/15 Reported Simvastatin 20 Mg Tablet 1 Tab PO QHS 10/18/14 Reported Lisinopril 5 Mg Tablet 2.5 Mg PO DAILY 01/29/14 Reported Gabapentin 300 Mg Capsule 300 Mg PO PRN TID PRN 01/29/14 Reported can take 1 or 2 capsules Plavix (Clopidogrel Bisulfate) 75 Mg Tablet 75 Mg PO DAILY 01/29/14 Reported Digoxin 125 Mcg Tablet 125 Mcg PO DAILY 01/29/14 Reported Impression . 1. Clinical pneumonia. 2. Acute exacerbation of chronic obstructive pulmonary disease. resolved 3. Tobacco dependent. 4. Acute purulent bronchitis. 5. ETOH abuse, encephalopathy, resolved 6. CT chest reviewed. bronchiectasis/ LLL mucous plug Plan . 1. CT chest reviewed. bronchiectasis/ LLL mucous plug/ pulmonary toilet 2. Tessalon Perles. 3. off Steroids 4. Continue antibiotics ,PO Augmentin 5. Pepcid for possible reflux. 6. d/w RN/ OK WITH DC PULMONARY GARCIA VERONICA GASTELUM MD Aug 22, 2018 13:07
[2018-08-22] MEDS: ANTI-COAG MONITOR BY PHARMACY. MC PRN (13:25)
[2018-08-22 14:40] VITALS: BP 154/89
[2018-08-22] MEDS: RIVAROXABAN 10 MG TABLET. PO SCH (17:14)
[2018-08-22 19:00] VITALS: BP 100/56
[2018-08-22] MEDS: SIMVASTATIN 20 MG TABLET PO SCH (20:15)
[2018-08-22] MEDS: TAMSULOSIN 0.4 MG CAP.ER.24H. PO SCH (20:15)
[2018-08-22] MEDS: MIRTAZAPINE 15 MG TABLET PO SCH (20:16)
[2018-08-22] MEDS: traZODone 50 MG TABLET. PO SCH (20:16)
[2018-08-22 22:33] VITALS: BP 108/60
[2018-08-23 02:44] VITALS: BP 95/68
[2018-08-23 05:36] LABS: ALBUMIN 2.7 g/dL (3.4-5.0); ALBUMIN/GLOBULIN RATIO 0.8 (1.0-1.7); CALCIUM 8.6 mg/dL (8.5-10.1); CREATININE 1.3 mg/dL (0.7-1.3); GFR 64.9; POTASSIUM 4.4 mmol/L (3.5-5.1); TOTAL BILIRUBIN 0.6 mg/dL (0.2-1.0)
[2018-08-23 06:46] VITALS: BP 109/77
[2018-08-23] MEDS: IPRATRPIUM/ALBUTEROL 0.5/2.5MG 3 ML NEBU. NEB SCH ×2 (07:21→11:45)
[2018-08-23] MEDS: CLOPIDOGREL BISULFATE 75 MG TABLET PO SCH (08:35)
[2018-08-23] MEDS: THIAMINE 100 MG TABLET. PO SCH (08:35)
[2018-08-23] MEDS: LISINOPRIL 10 MG TABLET PO SCH (08:35)
[2018-08-23] MEDS: AMOXICILLIN/K CLAV 875/125MG TABLET. PO SCH (08:35)
[2018-08-23] MEDS: DIGOXIN 125 MCG TABLET. PO SCH (08:35)
[2018-08-23] MEDS: PANTOPRAZOLE 40 MG TABLET.DR. PO SCH (08:36)
[2018-08-23] MEDS: MULTIVITAMIN with MINERAL TABLET. PO SCH (08:36)
[2018-08-23] MEDS: METOPROLOL SUCC 24HR ER 25 MG TAB.ER.24H. PO SCH (08:37)
[2018-08-23] MEDS: LACTOBACILLUS RHAMNOSUS GG 1 CAPSULE. PO SCH (08:37)
[2018-08-23] MEDS: POLYETHYLENE GLYCOL 3350 17 GM PACKET. PO SCH (08:41)
[2018-08-23] MEDS: oxyCODONE IR 5 MG TABLET PO SCH (08:41)
--- NOTE | 2018-08-23 08:47 | DISCH ---
DISCHARGE WITH HOME HEALTH DISCHARGE INFORMATION: Condition on Discharge: Stable HOME HEALTH: Face to Face: I certify this patient is under my care and that I, or a nurse practitioner or physician's guest services assistant working with me, had a face to face encounter that meets the physician face to face encounter requirements with this patient on []. Medical Complications: Other (cardiac arrhythmia,alcoholism) Pt Meets Homebound Status: Psychological condition POST DISCHARGE ORDERS: Activity Instructions for Disc: Activity as tolerated Weight Bearing Status after Di: As tolerated DIET AFTER DISCHARGE: Cardiac Wound/Incision Care: No wound care needed FOLLOW-UP: Follow up with: follow-up by his home physician Dr. Arora in 3-5 days TREATMENT/EQUIPMENT ORDERS: Adaptive Equipment Issued: None CERTIFICATION STATEMENT: Certification Statement: Certification Statement: Based on the above finding, I certify that this patient is confined to the home and needs intermittent penitentiary care, physical therapy and/or speech therapy, or continues to need occupational therapy.~ This patient is under my care, and I have initiated the establishment of the plan of care.~ This patient will be followed by myself or a community physician who will periodically review the plan of care. Home Meds Active Scripts Albuterol Sulfate (PROAIR HFA INHALER) 8.5 Gm Hfa.aer.ad, 1 PUFF INH PRN Q6HRS PRN for SHORTNESS OF BREATH, #1 INHALER 0 Refills Prov:JULISSA BARRAZA MD 07/01/18 Diphenhydramine Hcl (BENADRYL) 25 Mg Capsule, 2 CAP PO Q6HRS PRN for ITCHING, # 14 CAP 2 Refills Prov:NISH HARTMANN MD 02/24/17 Reported Medications Ipratropium/Albuterol Sulfate (DUONEB 0.5-3(2.5) MG/3 ML) 3 Ml Ampul.neb, 3 ML NEB QIDPRN PRN for SHORTNESS OF BREATH, EACH 08/16/18 Mirtazapine (REMERON) 15 Mg Tablet, 1 TAB PO QHS, #30 TAB 08/16/18 Tamsulosin Hcl (TAMSULOSIN HCL) 0.4 Mg Cap.er.24h, 1 CAP PO HS, #30 CAP 5 Refills 02/14/17 Metoprolol Succinate (METOPROLOL SUCCINATE ( XL )) 25 Mg Tab.er.24h, 1 TAB PO DAILY, #30 TAB 5 Refills 02/14/17 Trazodone Hcl (TRAZODONE HCL) 50 Mg Tablet, 2 TAB PO HS, #30 TAB 1 Refill 100 mg @ HS 03/26/15 Rivaroxaban (XARELTO) 15 Mg Tablet, 20 MG PO HS 03/26/15 Simvastatin (SIMVASTATIN) 20 Mg Tablet, 1 TAB PO QHS 10/18/14 Lisinopril (LISINOPRIL) 5 Mg Tablet, 2.5 MG PO DAILY 01/29/14 Gabapentin (GABAPENTIN) 300 Mg Capsule, 300 MG PO PRN TID PRN for PAIN can take 1 or 2 capsules 01/29/14 Clopidogrel Bisulfate (PLAVIX) 75 Mg Tablet, 75 MG PO DAILY 01/29/14 Digoxin (DIGOXIN) 125 Mcg Tablet, 125 MCG PO DAILY 01/29/14 Discontinued Reported Medications Hydrocodone/Apap 10-325 (NORCO 10-325 TABLET) 1 Each Tablet, 1 TAB PO PRN QID PRN for PAIN, #120 TAB 01/17/15 Aspirin (ASPIRIN) 81 Mg Tab.chew, 1 TAB PO DAILY 12/09/14 RENE MOON MD Aug 23, 2018 08:47
[2018-08-23] MEDS ORDERED: THIA100T22 PO (08:58)
[2018-08-23] MEDS ORDERED: Pantoprazole PO (08:58)
[2018-08-23] MEDS ORDERED: AMOX1TAB11 PO (08:58)
[2018-08-23] MEDS ORDERED: LISI10TA2 PO (08:58)
--- NOTE | 2018-08-23 09:55 | PDOC ---
PULMONARY PROGRESS NOTES Subjective no cough/ soa Vitals Vital Signs Date Time Temp Pulse Resp B/P (MAP) Pulse Ox O2 Delivery O2 Flow Rate FiO2 08/23/18 09:52 95 Room Air 2.0 08/23/18 08:41 16 08/23/18 08:37 73 109/77 08/23/18 06:46 97.9 97.9 General: Alert, No acute distress Lungs: Clear Cardiovascular: S1 Abdomen: Soft Neuro Exam: Alert Extremities: No Edema Labs Laboratory Tests Test 08/22/18 04:45 08/22/18 07:09 08/22/18 12:42 08/22/18 20:35 Sodium Level 142 mmol/L (136-145) Potassium Level 3.5 mmol/L (3.5-5.1) Chloride Level 107 mmol/L (98-107) Carbon Dioxide Level 27 mmol/L (21-32) Anion Gap 8 (6-14) Blood Urea Nitrogen 15 mg/dL (8-26) Creatinine 1.0 mg/dL (0.7-1.3) Estimated GFR (Cockcroft-Gault) 87.9 BUN/Creatinine Ratio 15 (6-20) Glucose Level 83 mg/dL (70-99) Calcium Level 8.4 mg/dL (8.5-10.1) Total Bilirubin 0.6 mg/dL (0.2-1.0) Aspartate Amino Transf (AST/SGOT) 11 U/L (15-37) Alanine Aminotransferase (ALT/SGPT) 14 U/L (16-63) Alkaline Phosphatase 65 U/L (46-116) Total Protein 5.8 g/dL (6.4-8.2) Albumin 2.7 g/dL (3.4-5.0) Albumin/Globulin Ratio 0.9 (1.0-1.7) Glucose (Fingerstick) 97 mg/dL (70-99) 136 mg/dL (70-99) 169 mg/dL (70-99) Test 08/23/18 03:45 Sodium Level 143 mmol/L (136-145) Potassium Level 4.4 mmol/L (3.5-5.1) Chloride Level 106 mmol/L (98-107) Carbon Dioxide Level 31 mmol/L (21-32) Anion Gap 6 (6-14) Blood Urea Nitrogen 16 mg/dL (8-26) Creatinine 1.3 mg/dL (0.7-1.3) Estimated GFR (Cockcroft-Gault) 64.9 BUN/Creatinine Ratio 12 (6-20) Glucose Level 84 mg/dL (70-99) Calcium Level 8.6 mg/dL (8.5-10.1) Total Bilirubin 0.6 mg/dL (0.2-1.0) Aspartate Amino Transf (AST/SGOT) 12 U/L (15-37) Alanine Aminotransferase (ALT/SGPT) 17 U/L (16-63) Alkaline Phosphatase 73 U/L (46-116) Total Protein 6.0 g/dL (6.4-8.2) Albumin 2.7 g/dL (3.4-5.0) Albumin/Globulin Ratio 0.8 (1.0-1.7) Laboratory Tests Test 08/22/18 12:42 08/22/18 20:35 08/23/18 03:45 Glucose (Fingerstick) 136 mg/dL (70-99) 169 mg/dL (70-99) Sodium Level 143 mmol/L (136-145) Potassium Level 4.4 mmol/L (3.5-5.1) Chloride Level 106 mmol/L (98-107) Carbon Dioxide Level 31 mmol/L (21-32) Anion Gap 6 (6-14) Blood Urea Nitrogen 16 mg/dL (8-26) Creatinine 1.3 mg/dL (0.7-1.3) Estimated GFR (Cockcroft-Gault) 64.9 BUN/Creatinine Ratio 12 (6-20) Glucose Level 84 mg/dL (70-99) Calcium Level 8.6 mg/dL (8.5-10.1) Total Bilirubin 0.6 mg/dL (0.2-1.0) Aspartate Amino Transf (AST/SGOT) 12 U/L (15-37) Alanine Aminotransferase (ALT/SGPT) 17 U/L (16-63) Alkaline Phosphatase 73 U/L (46-116) Total Protein 6.0 g/dL (6.4-8.2) Albumin 2.7 g/dL (3.4-5.0) Albumin/Globulin Ratio 0.8 (1.0-1.7) Medications Active Scripts Medications Dose Route/Sig Max Daily Dose Days Date Category Dose Instructions Duoneb 0.5-3(2.5) Mg/3 Ml (Albuterol/Ipratropium) 3 Ml Ampul.neb 3 Ml NEB QIDPRN PRN 08/16/18 Reported Remeron (Mirtazapine) 15 Mg Tablet 1 Tab PO QHS 08/16/18 Reported Proair Hfa Inhaler (Albuterol Sulfate) 8.5 Gm Hfa.aer.ad 1 Puff INH PRN Q6HRS PRN 07/01/18 Rx Benadryl (Diphenhydramine Hcl) 25 Mg Capsule 2 Cap PO Q6HRS PRN 02/24/17 Rx Tamsulosin Hcl 0.4 Mg Cap.er.24h 1 Cap PO HS 02/14/17 Reported Metoprolol Succinate ( Xl ) (Metoprolol Succinate) 25 Mg Tab.er.24h 1 Tab PO DAILY 02/14/17 Reported Trazodone Hcl 50 Mg Tablet 2 Tab PO HS 03/26/15 Reported 100 mg @ HS Xarelto (Rivaroxaban) 15 Mg Tablet 20 Mg PO HS 03/26/15 Reported Simvastatin 20 Mg Tablet 1 Tab PO QHS 10/18/14 Reported Lisinopril 5 Mg Tablet 2.5 Mg PO DAILY 01/29/14 Reported Gabapentin 300 Mg Capsule 300 Mg PO PRN TID PRN 01/29/14 Reported can take 1 or 2 capsules Plavix (Clopidogrel Bisulfate) 75 Mg Tablet 75 Mg PO DAILY 01/29/14 Reported Digoxin 125 Mcg Tablet 125 Mcg PO DAILY 01/29/14 Reported Impression . 1. Clinical pneumonia. 2. Acute exacerbation of chronic obstructive pulmonary disease. resolved 3. Tobacco dependent. 4. Acute purulent bronchitis. 5. ETOH abuse, encephalopathy, resolved 6. CT chest reviewed. bronchiectasis/ LLL mucous plug Plan . PT TO D/C TODAY GAVE HIM MY CARD TO CALL OFFICE AND MAKE A FOLLOW UP APPOINTMENT 1. CT chest reviewed. bronchiectasis/ LLL mucous plug/ pulmonary toilet 2. Tessalon Perles. 3. off Steroids 4. Continue antibiotics ,PO Augmentin 5. Pepcid for possible reflux. 6. d/w RN/ OK WITH DC PULMONARY GARCIA CHAD WRIGHT MD Aug 23, 2018 09:55
[2018-08-23 10:02] VITALS: BP 118/73
--- NOTE | 2018-08-23 10:04 | PDOC3 ---
IM DISCHARGE SUMMARY Date of Admission Date of Admission Date of Admission: Aug 16, 2018 at 04:20 Date of Discharge Date of Discharge August 23, 2018 Consults Consults Randolph Velasco MD, Dr. Sims, Dr. Murillo, Dr. Wilmer Banks Labs Labs Laboratory Tests Test 08/20/18 10:40 08/21/18 04:00 08/22/18 04:45 08/22/18 07:09 Prothrombin Time 18.1 SEC (11.7-14.0) Prothromb Time International Ratio 1.6 (0.8-1.1) Sodium Level 143 mmol/L (136-145) 142 mmol/L (136-145) Potassium Level 3.4 mmol/L (3.5-5.1) 3.5 mmol/L (3.5-5.1) Chloride Level 107 mmol/L (98-107) 107 mmol/L (98-107) Carbon Dioxide Level 27 mmol/L (21-32) 27 mmol/L (21-32) Anion Gap 9 (6-14) 8 (6-14) Blood Urea Nitrogen 16 mg/dL (8-26) 15 mg/dL (8-26) Creatinine 1.1 mg/dL (0.7-1.3) 1.0 mg/dL (0.7-1.3) Estimated GFR (Cockcroft-Gault) 78.7 87.9 BUN/Creatinine Ratio 15 (6-20) 15 (6-20) Glucose Level 110 mg/dL (70-99) 83 mg/dL (70-99) Calcium Level 8.3 mg/dL (8.5-10.1) 8.4 mg/dL (8.5-10.1) Total Bilirubin 0.5 mg/dL (0.2-1.0) 0.6 mg/dL (0.2-1.0) Aspartate Amino Transf (AST/SGOT) 14 U/L (15-37) 11 U/L (15-37) Alanine Aminotransferase (ALT/SGPT) 15 U/L (16-63) 14 U/L (16-63) Alkaline Phosphatase 62 U/L (46-116) 65 U/L (46-116) Total Protein 5.9 g/dL (6.4-8.2) 5.8 g/dL (6.4-8.2) Albumin 2.8 g/dL (3.4-5.0) 2.7 g/dL (3.4-5.0) Albumin/Globulin Ratio 0.9 (1.0-1.7) 0.9 (1.0-1.7) Glucose (Fingerstick) 97 mg/dL (70-99) Test 08/22/18 12:42 08/22/18 20:35 08/23/18 03:45 Glucose (Fingerstick) 136 mg/dL (70-99) 169 mg/dL (70-99) Sodium Level 143 mmol/L (136-145) Potassium Level 4.4 mmol/L (3.5-5.1) Chloride Level 106 mmol/L (98-107) Carbon Dioxide Level 31 mmol/L (21-32) Anion Gap 6 (6-14) Blood Urea Nitrogen 16 mg/dL (8-26) Creatinine 1.3 mg/dL (0.7-1.3) Estimated GFR (Cockcroft-Gault) 64.9 BUN/Creatinine Ratio 12 (6-20) Glucose Level 84 mg/dL (70-99) Calcium Level 8.6 mg/dL (8.5-10.1) Total Bilirubin 0.6 mg/dL (0.2-1.0) Aspartate Amino Transf (AST/SGOT) 12 U/L (15-37) Alanine Aminotransferase (ALT/SGPT) 17 U/L (16-63) Alkaline Phosphatase 73 U/L (46-116) Total Protein 6.0 g/dL (6.4-8.2) Albumin 2.7 g/dL (3.4-5.0) Albumin/Globulin Ratio 0.8 (1.0-1.7) Brief hospital course Brief hospital course This 78 years old -[place] male presented with dyspnea cough and congestion.This 78-year-old -[place] male started having cold, cough and congestion, progressively getting worse about 5 weeks ago. He has been to the Emergency Room and he has also been treated by the doctor who comes to his home and he has been given Zithromax x 2. However, his symptoms continued to get worse and he came to the Emergency Room. In the Emergency Room, the patient was noted to have acute exacerbation of COPD. O2 sats were 90% on room air per EMS. Chest x-ray did not show any acute infiltrates, but has left basal rales. He has been wheezing. Lactic acid was elevated at 2.3. He has felt very tired and short of breath and exhausted. He denies any nausea or vomiting, but his appetite is decreased. Denies any skin rash or swelling of the legs. Because of the clinical pneumonia with exacerbation of COPD and sepsis, the patient is being admitted for further evaluation and management. The patient has also failed several antibiotic treatments as outpatient. For more details regarding the past history, family history, social history, surgical history and other details, please refer to History and Physical. Continue Xarelto for atrial fibrillation that is chronic. I will start him on IV Levaquin. Consult Dr. Resendiz for Pulmonary evaluation and management and Dr. Rushing for Infectious Disease evaluation and management. Continue breathing treatment. The patient has been given IV fluids. I have started him on IV steroids. We will monitor blood sugars. For details, please review the orders. Pneumonia - clinically improving however he continues to have a lot of coughing. CT chest showed bronchiectasis. Discussed with Dr. Blanchard. I will discontinue IV steroids. This will also help his agitation. Possible dysphagia- patient has an abnormal CT with the fluid level in the esophagus. Patient states that he had esophageal surgery previously. I'll consult Dr. Banks for GI evaluation and management. Discussed with Dr. Banks. 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 He will need an EGD as outpatient. These patients are at high risk for squamous cell carcinoma. Acute metabolic encephalopathy likely due to alcohol withdrawal. Continue IV or by mouth Ativan as needed. Clinically improving Continue cardiac monitoring. Alcoholism - patient is strongly advised to avoid alcohol. Consult PAT team. The patient is advised to participate in addiction recovery program after discharge. Continue thiamine and multivitamins on discharge. No need for lorazepam on discharge. Cardiac arrhythmia and elevated troponin level- EKG reviewed. Cardiology consult obtained. Continue cardiac monitoring. Hypokalemia- potassium is 3.2. Replace potassium. Low TSH- this is due to IV steroids that he was receiving prior to the test. No intervention necessary. Discussed with patient extensively about his condition and treatment. He declines to go to a [facility]. Discussed with physical therapy. Patient has been able to walk short distances which is what he was doing at home prior to admission here. Patient insists on going home and he has physicians to come to his home and they manage his care at home. I will order Home health services and the they will also provide other services as needed. Prognosis of this patient is very poor due to his noncompliance and multiple medical problems. I strongly advised him to avoid alcohol. He has taken oxycodone occasionally but I will not give him any narcotics due to his alcoholism. I also advised him to participate in addiction recovery services after discharge from the hospital. I also discussed with the patient's daughter Desiree Almazan on phone about her father's condition, treatment, alcoholism, issues with home care etc. she will try to help him. Atrial fibrillation- continues around 2 and other cardiac medications. Medications Medications reviewed and reconciled for discharge. Allergy Allergies Coded Allergies Type Severity Reaction Last Updated Verified Iodinated Contrast- Oral and IV Dye Allergy Severe anaphalaxis, short of air Yes adhesive Allergy Severe PAINFUL SKIN IRRITATION 06/06/15 Yes latex Allergy Intermediate Hives 06/06/15 Yes Follow up in 5 days. Comments Discharge Management - 35 minutes. For other details please refer to discharge instructions RENE MOON MD Aug 23, 2018 10:04
--- NOTE | 2018-08-23 12:03 | PDOC ---
Subjective: Subjective: Denies dysphagia. Objective: Objective: Discharging? Has declined home health. Vital Signs: Vital Signs Date Time Temp Pulse Resp B/P (MAP) Pulse Ox O2 Delivery O2 Flow Rate FiO2 08/23/18 11:45 97 Room Air 08/23/18 10:02 98.2 83 18 118/73 (88) 98.2 08/23/18 09:52 2.0 Labs: Laboratory Tests Test 08/22/18 12:42 08/22/18 20:35 08/23/18 03:45 Glucose (Fingerstick) 136 mg/dL 169 mg/dL Sodium Level 143 mmol/L Potassium Level 4.4 mmol/L Chloride Level 106 mmol/L Carbon Dioxide Level 31 mmol/L Anion Gap 6 Blood Urea Nitrogen 16 mg/dL Creatinine 1.3 mg/dL Estimated GFR (Cockcroft-Gault) 64.9 BUN/Creatinine Ratio 12 Glucose Level 84 mg/dL Calcium Level 8.6 mg/dL Total Bilirubin 0.6 mg/dL Aspartate Amino Transf (AST/SGOT) 12 U/L Alanine Aminotransferase (ALT/SGPT) 17 U/L Alkaline Phosphatase 73 U/L Total Protein 6.0 g/dL Albumin 2.7 g/dL Albumin/Globulin Ratio 0.8 PE: GEN: NAD LUNGS: clear anteriorly HEART: RRR ABD: S/ND/NT NEURO/PSYCH: appropriate A/P: Abnormal CT chest - dilatation of esophagus w/ air-fluid level -- Discharging? Outpt EGD. HONEY AUGUSTE Aug 23, 2018 12:03
== END 2018-08-23 13:14 | disposition home or self-care (01) | DRG 871 ==
LOC: ER 01:58 → 5 SOUTH 04:20 → 2 NORTH 08-18 21:47
PROVIDERS: ADMIT Internal Medicine; ATTEND Internal Medicine
DX: A41.9 Sepsis, unspecified organism (principal); J18.9 Pneumonia, unspecified organism; J96.00 Acute respiratory failure, unspecified whether with hypoxia or hypercapnia; I21.4 Non-ST elevation (NSTEMI) myocardial infarction; G93.41 Metabolic encephalopathy; J44.1 Chronic obstructive pulmonary disease with (acute) exacerbation; J44.0 Chronic obstructive pulmonary disease with (acute) lower respiratory infection; I50.32 Chronic diastolic (congestive) heart failure; I13.0 Hypertensive heart and chronic kidney disease with heart failure and stage 1 through stage 4 chronic kidney disease, or unspecified chronic kidney disease; I16.9 Hypertensive crisis, unspecified; I42.9 Cardiomyopathy, unspecified; F10.239 Alcohol dependence with withdrawal, unspecified; T17.890A Other foreign object in other parts of respiratory tract causing asphyxiation, initial encounter; I25.10 Atherosclerotic heart disease of native coronary artery without angina pectoris; G62.9 Polyneuropathy, unspecified; G51.0 Bell's palsy; G89.29 Other chronic pain; N20.0 Calculus of kidney; E78.5 Hyperlipidemia, unspecified; M19.90 Unspecified osteoarthritis, unspecified site; K57.90 Diverticulosis of intestine, part unspecified, without perforation or abscess without bleeding; Z79.01 Long term (current) use of anticoagulants; I48.0 Paroxysmal atrial fibrillation; I48.2 Chronic atrial fibrillation; N18.2 Chronic kidney disease, stage 2 (mild); K21.9 Gastro-esophageal reflux disease without esophagitis; F03.90 Unspecified dementia, unspecified severity, without behavioral disturbance, psychotic disturbance, mood disturbance, and anxiety; K64.8 Other hemorrhoids; J84.10 Pulmonary fibrosis, unspecified; J20.9 Acute bronchitis, unspecified; I71.4 Abdominal aortic aneurysm, without rupture; E87.6 Hypokalemia; F17.210 Nicotine dependence, cigarettes, uncomplicated; G47.33 Obstructive sleep apnea (adult) (pediatric); I49.3 Ventricular premature depolarization; Z80.0 Family history of malignant neoplasm of digestive organs; Z86.73 Personal history of transient ischemic attack (TIA), and cerebral infarction without residual deficits; Z82.49 Family history of ischemic heart disease and other diseases of the circulatory system; Z95.810 Presence of automatic (implantable) cardiac defibrillator; Z86.718 Personal history of other venous thrombosis and embolism; Z98.49 Cataract extraction status, unspecified eye; Z91.19 Patient's noncompliance with other medical treatment and regimen; Z86.79 Personal history of other diseases of the circulatory system; Z95.1 Presence of aortocoronary bypass graft; Z95.5 Presence of coronary angioplasty implant and graft
CPT/HCPCS: 36415; 36600; 70450; 71046; 71250; 76770; 80048; 80053; 80061; 82805; 82962; 83605; 83735; 83880; 84443; 84484; 85007; 85025; 85610; 87040; 93005; 93306; 94640; 94644; 94760; 96361; 96374; J1956; J2060; J2543; J2920; J2930; J7030; J7613; J7620; J7644; Q0163; 97116; 99285-25

== ENCOUNTER 2018-12-10 09:50 | Inpatient (IN) | payer MEDICARE, BC ==
[~2018-12-10] VITALS: Ht 190.5 cm; Wt 77.3 kg
[2018-12-10] VITALS (7 sets, daily range): BP systolic 91–212; BP diastolic 56–106
[~2018-12-10 09:50] MED LIST changes: +ALBU2.5V8 INH; +AMOX1TAB11 PO; -GABA-586 PO; +GABA300C18 PO; +HYDR-3135 PO; -HYDR-963 PO; +IPRA3AMP29 NEB; +LISI10TA2 PO; +MIRT15TA PO; +OMEP20CA10 PO; -OMEP20CA9 PO; +PRED20TA PO; -PROAIR HFA8.5 GM INH; +Pantoprazole PO; +SOTA80TA20 PO; +THIA100T22 PO; +TRAZ-118 PO; -TRAZ-85 PO
--- NOTE | 2018-12-10 10:14 | PHYS DOC ---
Past Medical History Past Medical History: COPD, TIA Additional Past Medical Histor: BACK PAIN Past Surgical History: Lumbar Laminectomy, Other Additional Past Surgical Histo: esophagus; hernia; Alcohol Use: Rarely Drug Use: None Adult General Chief Complaint Chief Complaint: SHORTNESS OF BREATH HPI HPI Patient is a 78 year old male who was brought in by self chief complaint of shortness of breath with exertion worsening over the last couple weeks as well as a shocking sensation just near his left sided chest near his AICD said he felt like an electric shock a few times last night no fainting he had some pain in that area but that has resolved. He is feeling generally weak and is feeling short of breath with exertion and having a pleuritic component to his pain. Review of Systems Review of Systems Constitutional: Denies fever or chills [] Eyes: Denies change in visual acuity, redness, or eye pain [] HENT: Denies nasal congestion or sore throat [] Respiratory : Denies dysuria or hematuria [] Musculoskeletal: Denies back pain or joint pain [] Integument: Denies rash or skin lesions [] Neurologic: Denies headache, focal weakness or sensory changes [] Endocrine: Denies polyuria or polydipsia [] All other systems were reviewed and found to be within normal limits, except as documented in this note. Allergies Allergies Allergies Coded Allergies Type Severity Reaction Last Updated Verified Iodinated Contrast- Oral and IV Dye Allergy Severe anaphalaxis, short of air Yes adhesive Allergy Severe PAINFUL SKIN IRRITATION 06/06/15 Yes latex Allergy Intermediate Hives 06/06/15 Yes Physical Exam Physical Exam Constitutional: Well developed, well nourished, no acute distress, non-toxic appearance. [] HENT: Normocephalic, atraumatic, bilateral external ears normal, oropharynx moist, no oral exudates, nose normal. [] Eyes: PERRLA, EOMI, conjunctiva normal, no discharge. [] Neck: Normal range of motion, no tenderness, supple, no stridor. [] Cardiovascular: 2/6 systolic murmur irregular rhythm Lungs & Thorax: Crackles noted bilateral lung bases Abdomen: Bowel sounds normal, soft, no tenderness, no masses, no pulsatile masses. [] Skin: Pale and weak appearing Back: No tenderness, no CVA tenderness. [] Extremities: No tenderness, no cyanosis, no clubbing, ROM intact, no edema. [] Neurologic: Alert and oriented X 3, normal motor function, normal sensory function, no focal deficits noted. [] Psychologic: Affect normal, judgement normal, mood normal. [] Current Patient Data Vital Signs Vital Signs Date Time Temp Pulse Resp B/P (MAP) Pulse Ox O2 Delivery O2 Flow Rate FiO2 12/10/18 10:56 82 16 134/81 (98) 95 Room Air 12/10/18 10:17 98.1 2.0 98.1 Lab Values Laboratory Tests Test 12/10/18 10:43 White Blood Count 6.4 x10^3/uL (4.0-11.0) Red Blood Count 4.86 x10^6/uL (4.30-5.70) Hemoglobin 11.2 g/dL (13.0-17.5) L Hematocrit 36.2 % (39.0-53.0) L Mean Corpuscular Volume 75 fL (79-100) L Mean Corpuscular Hemoglobin 23 pg (25-35) L Mean Corpuscular Hemoglobin Concent 31 g/dL (31-37) Red Cell Distribution Width 20.9 % (11.5-14.5) H Platelet Count 377 x10^3/uL (140-400) Neutrophils (%) (Auto) 57 % (31-73) Lymphocytes (%) (Auto) 22 % (24-48) L Monocytes (%) (Auto) 10 % (0-9) H Eosinophils (%) (Auto) 10 % (0-3) H Basophils (%) (Auto) 2 % (0-3) Neutrophils # (Auto) 3.6 x10^3uL (1.8-7.7) Lymphocytes # (Auto) 1.4 x10^3/uL (1.0-4.8) Monocytes # (Auto) 0.6 x10^3/uL (0.0-1.1) Eosinophils # (Auto) 0.6 x10^3/uL (0.0-0.7) Basophils # (Auto) 0.1 x10^3/uL (0.0-0.2) Platelet Estimate Pending Prothrombin Time 18.9 SEC (11.7-14.0) H Prothrombin Time INR 1.6 (0.8-1.1) H Sodium Level 143 mmol/L (136-145) Potassium Level 4.7 mmol/L (3.5-5.1) Chloride Level 103 mmol/L (98-107) Carbon Dioxide Level 28 mmol/L (21-32) Anion Gap 12 (6-14) Blood Urea Nitrogen 19 mg/dL (8-26) Creatinine 1.1 mg/dL (0.7-1.3) Estimated GFR (Cockcroft-Gault) 78.7 BUN/Creatinine Ratio 17 (6-20) Glucose Level 109 mg/dL (70-99) H Calcium Level 9.6 mg/dL (8.5-10.1) Magnesium Level 2.2 mg/dL (1.8-2.4) Total Bilirubin 0.5 mg/dL (0.2-1.0) Aspartate Amino Transferase (AST) 16 U/L (15-37) Alanine Aminotransferase (ALT) 14 U/L (16-63) L Alkaline Phosphatase 99 U/L (46-116) Troponin I Quantitative 0.025 ng/mL (0.000-0.055) Total Protein 7.6 g/dL (6.4-8.2) Albumin 4.1 g/dL (3.4-5.0) Albumin/Globulin Ratio 1.2 (1.0-1.7) Digoxin Level 0.6 ng/mL (0.9-2.0) L Digoxin Last Dose Date Unknown Digoxin Last Dose Time Unknown Laboratory Tests 12/10/18 10:43 Laboratory Tests 12/10/18 10:43 EKG EKG []EKG shows probably A. fib somewhat poor baseline PVC present nonspecific ST changes laterally could be dig effect no STEMI seen interpreted by me time of encounter Radiology/Procedures Radiology/Procedures [] Impressions: FINDINGS: The cardiac silhouette is unremarkable. The lungs are clear bilaterally. The costophrenic sulci are clear and well demarcated. Left-sided cardiac pacer AICD is unchanged. IMPRESSION: No radiographic evidence of an acute cardiopulmonary process. Electronically signed by: Elder Draper MD (12/10/2018 10:35 AM) [facility] DICTATED and SIGNED BY: ELDER DRAPER MD DATE: 12/10/18 1032 Course & Med Decision Making Course & Med Decision Making Pertinent Labs and Imaging studies reviewed. (See chart for details) []78 YO M HX OF CHF, AICD P/W CP AND SOB. SENSATION OF AICD FIRING. CXR NEG ACUTE. ON XARELTO BP TO 64/50 AT ONE POINT AFTER BLOOD DRAW. RESOLVED WITH REPOSITIONING. I SPOKE WITH RIFFEL PLAN TO ADMIT FOR SOB, HX OF CHF. APPEARS OVERALL FAIRLY WELL COMPENSATED AT THIS TIME BUT DOES APPEAR WEAK AND SOB IN THE ER. V/Q PENDING INTERROGATION OF AICD PENDING. Dragon Disclaimer Dragon Disclaimer This electronic medical record was generated, in whole or in part, using a voice recognition dictation system. Departure Departure Impression: Primary Impression: Chest pain Disposition: ADMITTED INPATIENT Admitting Physician: Other Condition: STABLE Referrals: CURTIS RILEY RN, GNP (PCP) JULISSA BARRAZA MD Dec 10, 2018 10:14
--- NOTE | 2018-12-10 10:38 | RAD ---
EXAM: CHEST 1 VIEW History: Shortness of breath COMPARISON: 11/03/2018 TECHNIQUE: Single portable radiograph of the chest FINDINGS: The cardiac silhouette is unremarkable. The lungs are clear bilaterally. The costophrenic sulci are clear and well demarcated. Left-sided cardiac pacer AICD is unchanged. IMPRESSION: No radiographic evidence of an acute cardiopulmonary process. Electronically signed by: Elder Draper MD (12/10/2018 10:35 AM) [place] [id number]
[2018-12-10 11:04] LABS: BASO # 0.1 x10^3/uL (0.0-0.2); BASO % 2 % (0-3); EOS # 0.6 x10^3/uL (0.0-0.7); EOS % 10 % (0-3); HEMATOCRIT 36.2 % (39.0-53.0); HEMOGLOBIN 11.2 g/dL (13.0-17.5); LYMPH # 1.4 x10^3/uL (1.0-4.8); LYMPH % 22 % (24-48); MEAN CORPUSCULAR HEMOGLOBIN 23 pg (25-35); MEAN CORPUSCULAR HGB CONC 31 g/dL (31-37); MEAN CORPUSCULAR VOLUME 75 fL (79-100); MONO # 0.6 x10^3/uL (0.0-1.1); MONO % 10 % (0-9); NEUT # 3.6 x10^3uL (1.8-7.7); NEUT % 57 % (31-73); PLATELET COUNT 377 x10^3/uL (140-400); RED BLOOD COUNT 4.86 x10^6/uL (4.30-5.70); RED CELL DISTRIBUTION WIDTH 20.9 % (11.5-14.5); WHITE BLOOD COUNT 6.4 x10^3/uL (4.0-11.0)
[2018-12-10 11:11] LABS: PROTHROMBIN TIME PATIENT 18.9 SEC (11.7-14.0)
[2018-12-10 11:13] LABS: CALCIUM 9.6 mg/dL (8.5-10.1); CREATININE 1.1 mg/dL (0.7-1.3); GFR 78.7; POTASSIUM 4.7 mmol/L (3.5-5.1)
[2018-12-10 11:21] LABS: ALBUMIN 4.1 g/dL (3.4-5.0); ALBUMIN/GLOBULIN RATIO 1.2 (1.0-1.7); MAGNESIUM 2.2 mg/dL (1.8-2.4); TOTAL BILIRUBIN 0.5 mg/dL (0.2-1.0); TOTAL PROTEIN 7.6 g/dL (6.4-8.2)
[2018-12-10 11:24] LABS: DIG 0.6 ng/mL (0.9-2.0)
--- NOTE | 2018-12-10 11:28 | EKG ---
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
[2018-12-10 12:12] LABS: ANISOCYTOSIS MOD; HYPOCHROMIA PRESENT; MICROCYTOSIS MOD; PLT ESTIMATE ADEQUATE (ADEQUATE); POIKILOCYTOSIS SLIGHT
[2018-12-10 12:13] LABS: POLYCHROMASIA SLIGHT; TARGET CELLS FEW
[2018-12-10 12:14] LABS: BURR CELLS FEW; HELMET CELLS OCC; SCHISTOCYTES OCC
[2018-12-10] MEDS ORDERED: IV NORMAL SALINE 1000ML BAG 1,000 ML IV ONE (12:45)
--- NOTE | 2018-12-10 13:37 | PDOC1 ---
History and Physical Date of Admission Date of Admission DATE: 12/10/18 TIME: 13:36 Identification/Chief Complaint Chief Complaint Chest pain Source Source: Chart review, Patient History of Present Illness History of Present Illness 78 yo M w/ PMHx COPD, CHF s/p AICD, AFIB, HLD, s/p AAA, Iliac artery aneurysm repair p/w shortness of breath with exertion worsening over the last couple weeks as well as a shocking sensation just near his left sided chest near his AICD said he felt like an electric shock a few times last night no fainting he had some pain in that area but that has resolved. In ED he had a mildly elevated troponin and had a very elevated BP 200/107 and RR of 22, initially suspected of having PE, however he is anticoagulated, though notably did not take any meds today. He is feeling generally weak and is feeling short of breath with exertion and having a pleuritic component to his pain and he c/o not being able to get his breath, very wheezy. Past Medical History Cardiovascular: AFIB, CAD, CHF, HTN, ND, Hyperlipidemia, Other Pulmonary: Bronchitis, COPD CENTRAL NERVOUS SYSTEM: CVA, Periperal neuropathy, Other GI: Constipation, GERD Heme/Onc: No pertinent hx, Other Hepatobiliary: No pertinent hx Psych: Addictions Musculoskeletal: low back pain Rheumatologic: No pertinent hx Infectious disease: No pertinent hx Renal/: Benign prostatic enlarg. Past Surgical History Past Surgical History: Pacemaker, CABG, Cataract Removal, Hernia Repair, Other Family History Family History: Cancer, Heart Disease Social History ALCOHOL: none Drugs: None Current Problem List Problem List Problems Medical Problems: (1) Chest pain Status: Acute Current Medications Current Medications Current Medications Sodium Chloride 1,000 ml @ 250 mls/hr 1X ONCE IV Last administered on at 10:50; Start 12/10/18 at 12:45; Stop 12/10/18 at 16:44 Active Scripts Active Prednisone 20 Mg Tablet 40 Mg PO DAILY 5 Days Betapace (Sotalol Hcl) 80 Mg Tablet 40 Mg PO BID 30 Days Duoneb 0.5-3(2.5) Mg/3 Ml (Albuterol/Ipratropium) 3 Ml Ampul.neb 3 Ml NEB RTQID 30 Days Vitamin B-1 (Thiamine Mononitrate) 100 Mg Tablet 100 Mg PO DAILY 30 Days [Pantoprazole] 40 MG Tablet.dr 40 Mg PO DAILYAC 30 Days Proair Hfa Inhaler (Albuterol Sulfate) 8.5 Gm Hfa.aer.ad 1 Puff INH PRN Q6HRS PRN Reported Duoneb 0.5-3(2.5) Mg/3 Ml (Albuterol/Ipratropium) 3 Ml Ampul.neb 3 Ml NEB QIDPRN PRN Remeron (Mirtazapine) 15 Mg Tablet 1 Tab PO QHS Xarelto (Rivaroxaban) 15 Mg Tablet 20 Mg PO HS Simvastatin 20 Mg Tablet 1 Tab PO QHS Gabapentin (Gabapentin) 300 Mg Capsule 300 Mg PO PRN TID PRN can take 1 or 2 capsules Plavix (Clopidogrel Bisulfate) 75 Mg Tablet 75 Mg PO DAILY Digoxin 125 Mcg Tablet 125 Mcg PO DAILY Allergies Allergies: Coded Allergies: Iodinated Contrast- Oral and IV Dye (Verified Allergy, Severe, anaphalaxis , short of air, 06/06/15) adhesive (Verified Allergy, Severe, PAINFUL SKIN IRRITATION , 06/06/15) latex (Verified Allergy, Intermediate, Hives, 06/06/15) ROS General: YES: Fatigue, Malaise PSYCHOLOGICAL ROS: YES: Anxiety; No: Behavioral Disorder, Concentration difficultie, Decreased libido, Depression, Disorientation, Hallucinations, Hostility, Irritablity, Memory difficulties, Mood Swings, Obsessive thoughts, Physical abuse, Sexual abuse, Sleep disturbances, Suicidal ideation, Other Eyes: No Blurry vision, No Decreased vision, No Double vision, No Dry eyes, No Excessive tearing, No Eye Pain, No Itchy Eyes, No Loss of vision, No Photophobia , No Scotomata, No Uses contacts, No Uses glasses, No Other HEENT: No: Heacaches, Visual Changes, Hearing change, Nasal congestion, Nasal discharge, Oral lesions, Sinus pain, Sore Throat, Epistaxis, Sneezing, Snoring, Tinnitus, Vertigo, Vocal changes, Other ALLERGY AND IMMUNOLOGY: No: Hives, Insect Bite Sensitivity, Itchy/Watery Eyes, Nasal Congestion, Post Nasal Drip, Seasonal Allergies, Other Hematological and Lymphatic: No: Bleeding Problems, Blood Clots, Blood Transfusions, Brusing, Night Sweats, Pallor, Swollen Lymph Nodes, Other ENDOCRINE: No: Breast Changes, Galactorrhea, Hair Pattern Changes, Hot Flashes , Malaise/lethargy, Mood Swings, Palpitations, Polydipsia/polyuria, Skin Changes , Temperature Intolerance, Unexpected Weight Changes, Other Breast: No New/Changing Breast Lumps, No Nipple changes, No Nipple discharge, No Other Respiratory: YES: Cough, Shortness of breath, SOB with excertion, Tachypnea, Wheezing; No: Hemoptysis, Orthopnea, Pleuritic Pain, Sputum Changes, Stridor, Other Cardiovascular: yes Chest Pain, yes Palpitations; No Orthopnea, No Paroxysmal Noc. Dyspnea, No Edema, No Lt Headedness, No Other Gastrointestinal: No Nausea, No Vomiting, No Abdominal Pain, No Diarrhea, No Constipation, No Melena, No Hematochezia, No Other Genitourinary: No Dysuria, No Frequency, No Incontinence, No Hematuria, No Retention, No Discharge, No Urgency, No Pain, No Flank Pain, No Other, No , No , No , No , No , No , No Musculoskeletal: No Gait Disturbance, No Joint Pain, No Joint Stiffness, No Joint Swelling, No Muscle Pain, No Muscular Weakness, No Pain In:, No Swelling In:, No Other Neurological: No Behavorial Changes, No Bowel/Bladder ControlChng, No Confusion , No Dizziness, No Gait Disturbance, No Headaches, No Impaired Coord/balance, No Memory Loss, No Numbness/Tingling, No Seizures, No Speech Problems, No Tremors, No Visual Changes, No Weakness, No Other Skin: No Dry Skin, No Eczema, No Hair Changes, No Lumps, No Mole Changes, No Mottling, No Nail Changes, No Pruritus, No Rash, No Skin Lesion Changes, No Other, No Acne Physical Exam General: Alert, Oriented X3, Cooperative, moderate distress HEENT: Atraumatic, PERRLA, EOMI, Mucous membr. moist/pink Lungs: Other (Little air movement, expiratory wheezes, tachypnea) Heart: S1S2, irregularly irregular Abdomen: Normal bowel sounds, Soft, No tenderness, No hepatosplenomegaly, No masses Extremities: No clubbing, No cyanosis, No edema, Normal pulses, No tenderness/ swelling Skin: No rashes, No breakdown, No significant lesion Neuro: Normal gait, Normal speech, Strength at 5/5 X4 ext, Normal tone, Sensation intact, Cranial nerves 3-12 NL, Reflexes 2+ Psych/Mental Status: Mental status NL, Mood NL Vitals Vitals Vital Signs Date Time Temp Pulse Resp B/P (MAP) Pulse Ox O2 Delivery O2 Flow Rate FiO2 12/10/18 12:26 80 18 143/88 (106) 97 Room Air 12/10/18 10:17 98.1 2.0 98.1 Labs Labs Laboratory Tests Test 12/10/18 10:43 White Blood Count 6.4 x10^3/uL (4.0-11.0) Red Blood Count 4.86 x10^6/uL (4.30-5.70) Hemoglobin 11.2 g/dL (13.0-17.5) Hematocrit 36.2 % (39.0-53.0) Mean Corpuscular Volume 75 fL (79-100) Mean Corpuscular Hemoglobin 23 pg (25-35) Mean Corpuscular Hemoglobin Concent 31 g/dL (31-37) Red Cell Distribution Width 20.9 % (11.5-14.5) Platelet Count 377 x10^3/uL (140-400) Neutrophils (%) (Auto) 57 % (31-73) Lymphocytes (%) (Auto) 22 % (24-48) Monocytes (%) (Auto) 10 % (0-9) Eosinophils (%) (Auto) 10 % (0-3) Basophils (%) (Auto) 2 % (0-3) Neutrophils # (Auto) 3.6 x10^3uL (1.8-7.7) Lymphocytes # (Auto) 1.4 x10^3/uL (1.0-4.8) Monocytes # (Auto) 0.6 x10^3/uL (0.0-1.1) Eosinophils # (Auto) 0.6 x10^3/uL (0.0-0.7) Basophils # (Auto) 0.1 x10^3/uL (0.0-0.2) Platelet Estimate Adequate (ADEQUATE) Large Platelets Few Polychromasia Slight Hypochromasia Present Poikilocytosis Slight Anisocytosis Mod Microcytosis Mod Target Cells Few Helmet Cells Occ [place] Cells Few Schistocytes Occ Prothrombin Time 18.9 SEC (11.7-14.0) Prothromb Time International Ratio 1.6 (0.8-1.1) Sodium Level 143 mmol/L (136-145) Potassium Level 4.7 mmol/L (3.5-5.1) Chloride Level 103 mmol/L (98-107) Carbon Dioxide Level 28 mmol/L (21-32) Anion Gap 12 (6-14) Blood Urea Nitrogen 19 mg/dL (8-26) Creatinine 1.1 mg/dL (0.7-1.3) Estimated GFR (Cockcroft-Gault) 78.7 BUN/Creatinine Ratio 17 (6-20) Glucose Level 109 mg/dL (70-99) Calcium Level 9.6 mg/dL (8.5-10.1) Magnesium Level 2.2 mg/dL (1.8-2.4) Total Bilirubin 0.5 mg/dL (0.2-1.0) Aspartate Amino Transf (AST/SGOT) 16 U/L (15-37) Alanine Aminotransferase (ALT/SGPT) 14 U/L (16-63) Alkaline Phosphatase 99 U/L (46-116) Troponin I Quantitative 0.025 ng/mL (0.000-0.055) WG-Bnc-I-Type Natriuretic Peptide 305 pg/mL (0-449) Total Protein 7.6 g/dL (6.4-8.2) Albumin 4.1 g/dL (3.4-5.0) Albumin/Globulin Ratio 1.2 (1.0-1.7) Digoxin Level 0.6 ng/mL (0.9-2.0) Digoxin Last Dose Date Unknown Digoxin Last Dose Time Unknown Laboratory Tests Test 12/10/18 10:43 White Blood Count 6.4 x10^3/uL (4.0-11.0) Red Blood Count 4.86 x10^6/uL (4.30-5.70) Hemoglobin 11.2 g/dL (13.0-17.5) Hematocrit 36.2 % (39.0-53.0) Mean Corpuscular Volume 75 fL (79-100) Mean Corpuscular Hemoglobin 23 pg (25-35) Mean Corpuscular Hemoglobin Concent 31 g/dL (31-37) Red Cell Distribution Width 20.9 % (11.5-14.5) Platelet Count 377 x10^3/uL (140-400) Neutrophils (%) (Auto) 57 % (31-73) Lymphocytes (%) (Auto) 22 % (24-48) Monocytes (%) (Auto) 10 % (0-9) Eosinophils (%) (Auto) 10 % (0-3) Basophils (%) (Auto) 2 % (0-3) Neutrophils # (Auto) 3.6 x10^3uL (1.8-7.7) Lymphocytes # (Auto) 1.4 x10^3/uL (1.0-4.8) Monocytes # (Auto) 0.6 x10^3/uL (0.0-1.1) Eosinophils # (Auto) 0.6 x10^3/uL (0.0-0.7) Basophils # (Auto) 0.1 x10^3/uL (0.0-0.2) Platelet Estimate Adequate (ADEQUATE) Large Platelets Few Polychromasia Slight Hypochromasia Present Poikilocytosis Slight Anisocytosis Mod Microcytosis Mod Target Cells Few Helmet Cells Occ [place] Cells Few Schistocytes Occ Prothrombin Time 18.9 SEC (11.7-14.0) Prothromb Time International Ratio 1.6 (0.8-1.1) Sodium Level 143 mmol/L (136-145) Potassium Level 4.7 mmol/L (3.5-5.1) Chloride Level 103 mmol/L (98-107) Carbon Dioxide Level 28 mmol/L (21-32) Anion Gap 12 (6-14) Blood Urea Nitrogen 19 mg/dL (8-26) Creatinine 1.1 mg/dL (0.7-1.3) Estimated GFR (Cockcroft-Gault) 78.7 BUN/Creatinine Ratio 17 (6-20) Glucose Level 109 mg/dL (70-99) Calcium Level 9.6 mg/dL (8.5-10.1) Magnesium Level 2.2 mg/dL (1.8-2.4) Total Bilirubin 0.5 mg/dL (0.2-1.0) Aspartate Amino Transf (AST/SGOT) 16 U/L (15-37) Alanine Aminotransferase (ALT/SGPT) 14 U/L (16-63) Alkaline Phosphatase 99 U/L (46-116) Troponin I Quantitative 0.025 ng/mL (0.000-0.055) KA-Gqq-Y-Type Natriuretic Peptide 305 pg/mL (0-449) Total Protein 7.6 g/dL (6.4-8.2) Albumin 4.1 g/dL (3.4-5.0) Albumin/Globulin Ratio 1.2 (1.0-1.7) Digoxin Level 0.6 ng/mL (0.9-2.0) Digoxin Last Dose Date Unknown Digoxin Last Dose Time Unknown Images Images CXR - No radiographic evidence of an acute cardiopulmonary process. VTE Prophylaxis Ordered VTE Prophylaxis Devices: Yes VTE Pharmacological Prophylaxi: Yes Assessment/Plan Assessment/Plan A/P: Acute COPD exacerbation - has albuterol but no home routine maintenance inhaler. Pulmicort, duonebs, consult pulm CHF s/p AICD - per cardiology - recent RV lead replacement due to lead fracture 11/02/2018. Interrogation revealed no significant arrhythmias since lead repair. <0.1% AFIB burden. NYHA 1-2. Recovered EF at 50-55% AFIB - sinus on monitor. On sotalol and xarelto as well as digoxin. His EF is normalized now, digoxin level therapeutic, maybe he does not need it, will defer to cards HLD - cont statin S/p AAA, Iliac artery aneurysm repair. Stable. Chest pain - will trend trops. EKG Sr without acute changes. recent stress testing with MPI last summer 2017 showed no reversible ischemia. Will consult cardiology FEN - Cardiac PPX - Xarelto FULL CODE Inpatient for acute COPD exacerbation and chest pain, at least 2 midnights GEORGE COOPER MD Dec 10, 2018 13:37
[2018-12-10] MEDS ORDERED: IPRATRPIUM/ALBUTEROL 0.5/2.5MG 3 ML NEBU. NEB ONE (13:45)
[2018-12-10] MEDS ORDERED: ALBUTEROL SULFATE 2.5 MG/3 ML NEBU. INH PRN (14:00)
[2018-12-10] MEDS ORDERED: IPRATRPIUM/ALBUTEROL 0.5/2.5MG 3 ML NEBU. NEB PRN (14:00)
[2018-12-10] MEDS ORDERED: ANTI-COAG MONITOR BY PHARMACY. MC PRN (14:15)
--- NOTE | 2018-12-10 14:20 | RAD ---
Nuclear medicine ventilation/perfusion lung scan INDICATION: Dyspnea x 5 months. Technique: Technetium 99m MAA 5.5 mCi and xenon-133 15 mCi are administered. COMPARISON: January 20, 2015. Findings Heterogeneous ventilation activity. There is retention of activity in both lungs compatible with emphysema. There is relatively diminished perfusion in the lower lobes of both lungs. There is perfusion heterogeneity in both upper lobes, but no large segmental perfusion defect. IMPRESSION: Intermediate probability for pulmonary embolism. Consider Doppler ultrasound to evaluate for deep venous thrombosis, or CTA chest if possible. Electronically signed by: Wilmer Diana MD (12/10/2018 2:17 PM) [id number]
[2018-12-10] MEDS: THIAMINE 100 MG TABLET. PO SCH (15:00)
[2018-12-10] MEDS: CLOPIDOGREL BISULFATE 75 MG TABLET PO SCH (15:00)
[2018-12-10] MEDS: PANTOPRAZOLE 40 MG TABLET.DR. PO SCH (15:00)
[2018-12-10] MEDS: DIGOXIN 125 MCG TABLET. PO SCH (15:00)
[2018-12-10] MEDS: IPRATRPIUM/ALBUTEROL 0.5/2.5MG 3 ML NEBU. NEB SCH ×2 (15:22→19:43)
--- NOTE | 2018-12-10 15:50 | RAD ---
Bilateral lower extremity venous ultrasound, 12/10/2018: History: Shortness of breath Duplex evaluation of the deep veins in the lower extremities was performed including grayscale, color-flow and spectral Doppler analysis. The femoral and popliteal veins demonstrate normal compressibility and normal responses to distal augmentation maneuvers. Color imaging of those vessels shows no evidence of intraluminal clot. The visualized deep veins in both calves are patent. IMPRESSION: There is no sonographic evidence of deep vein thrombosis in either lower extremity. Electronically signed by: Reynaldo Drake MD (12/10/2018 3:47 PM) [facility]
--- NOTE | 2018-12-10 16:44 | PDOC2 ---
CARDIAC CONSULT DATE OF CONSULT Date of Consult DATE: 12/10/18 TIME: 16:11 REASON FOR CONSULT Reason for Consult: Chest pain SOURCE Source: Chart review, Patient HISTORY OF PRESENT ILLNESS HISTORY OF PRESENT ILLNESS This is a 78 yo male admitted for complains of SOA. He mentioned chest pain in ED but denied it for me noting that that is not his problem and it is SOA. Denies any fever or chills but has been having SOA especially with exertion more in the last week. He has albuterol inhaler at home but no maintenance inhalers. He has been coughing with white productive sputum. Also complains of palpitations but no nausea or vomiting. No falls or passing out. He is known for orthostasis and does have some dizziness when upright but no passing out. PAST MEDICAL HISTORY Past Medical History Cardiovascular: AFIB, CAD, CHF, HTN, GA, Hyperlipidemia, Other Pulmonary: Bronchitis, COPD CENTRAL NERVOUS SYSTEM: CVA, Peripheral neuropathy, Other GI: Constipation, GERD Heme/Onc: No pertinent hx, Other Hepatobiliary: No pertinent hx Psych: Addictions Musculoskeletal: low back pain Rheumatologic: No pertinent hx Infectious disease: No pertinent hx Renal/: Benign prostatic enlarg. PAST SURGICAL HISTORY Past Surgical History AICD with recent repair due to lead fracture, CABG, Cataract Removal, Hernia Repair FAMILY HISTORY Family History: Heart Disease SOCIAL HISTORY Smoke: No ALCOHOL: none CURRENT MEDICATIONS CURRENT MEDICATIONS Current Medications Medications (Trade) Dose Ordered Sig/[place] Route PRN Reason Start Time Stop Time Status Last Admin Dose Admin Sodium Chloride 1,000 ml @ 250 mls/hr 1X ONCE IV 12/10/18 12:45 12/10/18 16:44 12/10/18 10:50 Albuterol/ Ipratropium (Duoneb) 3 ml 1X ONCE NEB 12/10/18 13:45 12/10/18 13:46 DC 12/10/18 13:47 Albuterol/ Ipratropium (Duoneb) 3 ml RTQID NEB 12/10/18 16:00 12/10/18 15:22 ALLERGIES ALLERGIES: Coded Allergies: Iodinated Contrast- Oral and IV Dye (Verified Allergy, Severe, anaphalaxis , short of air, 06/06/15) adhesive (Verified Allergy, Severe, PAINFUL SKIN IRRITATION , 06/06/15) latex (Verified Allergy, Intermediate, Hives, 06/06/15) ROS Review of System 14 point ROs evaluated with pertinent positives noted per HPI PHYSICAL EXAM General: Alert, Oriented X3, Cooperative, No acute distress HEENT: Mucous membr. moist/pink Lungs: Other (diminished) Heart: Regular rate (SR), Normal S1, Normal S2, No murmurs Abdomen: Soft, No tenderness Extremities: No cyanosis, No edema Skin: No breakdown, No significant lesion Neuro: Normal speech, Sensation intact Psych/Mental Status: Mental status NL, Mood NL MUSCULOSKELETAL: Osteoarthritic changes both hands VITALS VITALS Vital Signs Date Time Temp Pulse Resp B/P (MAP) Pulse Ox O2 Delivery O2 Flow Rate FiO2 12/10/18 15:22 99 Nasal Cannula 2.0 12/10/18 15:00 82 122/86 12/10/18 14:46 98.0 18 98.0 LABS Lab: Laboratory Tests Test 12/10/18 10:43 12/10/18 14:35 White Blood Count 6.4 x10^3/uL (4.0-11.0) Red Blood Count 4.86 x10^6/uL (4.30-5.70) Hemoglobin 11.2 g/dL (13.0-17.5) Hematocrit 36.2 % (39.0-53.0) Mean Corpuscular Volume 75 fL (79-100) Mean Corpuscular Hemoglobin 23 pg (25-35) Mean Corpuscular Hemoglobin Concent 31 g/dL (31-37) Red Cell Distribution Width 20.9 % (11.5-14.5) Platelet Count 377 x10^3/uL (140-400) Neutrophils (%) (Auto) 57 % (31-73) Lymphocytes (%) (Auto) 22 % (24-48) Monocytes (%) (Auto) 10 % (0-9) Eosinophils (%) (Auto) 10 % (0-3) Basophils (%) (Auto) 2 % (0-3) Neutrophils # (Auto) 3.6 x10^3uL (1.8-7.7) Lymphocytes # (Auto) 1.4 x10^3/uL (1.0-4.8) Monocytes # (Auto) 0.6 x10^3/uL (0.0-1.1) Eosinophils # (Auto) 0.6 x10^3/uL (0.0-0.7) Basophils # (Auto) 0.1 x10^3/uL (0.0-0.2) Platelet Estimate Adequate (ADEQUATE) Large Platelets Few Polychromasia Slight Hypochromasia Present Poikilocytosis Slight Anisocytosis Mod Microcytosis Mod Target Cells Few Helmet Cells Occ [place] Cells Few Schistocytes Occ Prothrombin Time 18.9 SEC (11.7-14.0) Prothromb Time International Ratio 1.6 (0.8-1.1) Sodium Level 143 mmol/L (136-145) Potassium Level 4.7 mmol/L (3.5-5.1) Chloride Level 103 mmol/L (98-107) Carbon Dioxide Level 28 mmol/L (21-32) Anion Gap 12 (6-14) Blood Urea Nitrogen 19 mg/dL (8-26) Creatinine 1.1 mg/dL (0.7-1.3) Estimated GFR (Cockcroft-Gault) 78.7 BUN/Creatinine Ratio 17 (6-20) Glucose Level 109 mg/dL (70-99) Calcium Level 9.6 mg/dL (8.5-10.1) Magnesium Level 2.2 mg/dL (1.8-2.4) Total Bilirubin 0.5 mg/dL (0.2-1.0) Aspartate Amino Transf (AST/SGOT) 16 U/L (15-37) Alanine Aminotransferase (ALT/SGPT) 14 U/L (16-63) Alkaline Phosphatase 99 U/L (46-116) Troponin I Quantitative 0.025 ng/mL (0.000-0.055) 0.035 ng/mL (0.000-0.055) SL-Ixn-G-Type Natriuretic Peptide 305 pg/mL (0-449) Total Protein 7.6 g/dL (6.4-8.2) Albumin 4.1 g/dL (3.4-5.0) Albumin/Globulin Ratio 1.2 (1.0-1.7) Digoxin Level 0.6 ng/mL (0.9-2.0) Digoxin Last Dose Date Unknown Digoxin Last Dose Time Unknown ECHOCARDIOGRAM ECHOCARDIOGRAM <Conclusion> The left ventricle is normal size. The left ventricular systolic function is normal and the ejection fraction is within normal range. The Ejection Fraction is 50-55%. There is mild concentric left ventricular hypertrophy. Device lead noted in RV. There is no significant aortic valvular stenosis. Doppler and Color Flow revealed no significant aortic regurgitation. Doppler and Color-flow revealed mild mitral regurgitation. Doppler and Color Flow revealed trace tricuspid regurgitation. The PA pressure was estimated at 23 mmHg. DATE: 08/20/18 1336 STRESS TEST STRESS TEST Conclusion 1. Paced rhythm. 2. Nuclear imaging shows no reversible ischemia. 3. Nuclear imaging shows mild fixed thinning of the inferior wall consistent with an attenuation defect. 4. Normal LV systolic function with an ejection fraction of 60%. 5. Moderately low risk Lexiscan stress test with no reversible ischemia and an ejection fraction of 60%. DATE: 03/28/18 1413 ASSESSMENT/PLAN ASSESSMENT/PLAN 1. AECOPD; has albuterol but no home routine maintenance inhaler. 2. AICD in situ: recent RV lead replacement due to lead fracture 11/02/2018. Interrogation revealed no significant arrhythmias since lead repair. <0.1% AFIB burden 3. Hx of NICM: compensated. NYHA 1-2. Recovered EF at 50-55% 4. Known orthostasis syndrome: no falls or syncope.. 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 5. PAFIB: SR QTc 456 6. HLP 7. s/p AAA, Iliac artery aneurysm repair. Stable. 8. Atypical CP: denies it for me. trops nml. EKG Sr without acute changes. recent MPI as noted above. Recommendations 1. Continue with secondary prevention. 2. Continue with florinef. Slow positional changes. 3. Continue xarelto for stroke prevention. Will need to further discussed again in regards to ASA vs xarelto given his orthostasis issues and risk for falls. 4. Continue sotalol. 5. Pulmonary consult pending CRYSTAL BAUTISTA APRN Dec 10, 2018 16:44
[2018-12-10] MEDS: RIVAROXABAN 10 MG TABLET. PO SCH (16:52)
[2018-12-10] MEDS: BUDESONIDE 0.5 MG/2 ML NEBU. NEB SCH (19:43)
[2018-12-10] MEDS ORDERED: OXYC20TA PO (20:39)
[2018-12-10] MEDS ORDERED: TRAZ-86 PO (20:39)
[2018-12-10] MEDS: DOCUSATE SODIUM 100 MG CAPSULE. PO SCH (20:51)
[2018-12-10] MEDS: SIMVASTATIN 20 MG TABLET PO SCH (20:51)
[2018-12-10] MEDS: MIRTAZAPINE 15 MG TABLET PO SCH (20:51)
[2018-12-10] MEDS: traZODone 100 MG TABLET. PO SCH (20:51)
[2018-12-10] MEDS: GABAPENTIN 300 MG CAPSULE. PO PRN (20:52)
[2018-12-10] MEDS: SOTALOL 80 MG TABLET. PO SCH (20:52)
[2018-12-10] MEDS: oxyCODONE IR 5 MG TABLET PO PRN (20:52)
[2018-12-10] MEDS: POLYETHYLENE GLYCOL 3350 17 GM PACKET. PO SCH (20:52)
[2018-12-10] MEDS ORDERED: methylPREDNISolone SOD SUCC PF 125 MG/2 ML VIAL. IV ONE (21:00)
[2018-12-11 03:30] VITALS: BP 110/78
[2018-12-11 04:27] LABS: BASO % 0 % (0-3); EOS % 0 % (0-3); HEMOGLOBIN 10.4 g/dL (13.0-17.5); LYMPH # 0.5 x10^3/uL (1.0-4.8); LYMPH % 11 % (24-48); MEAN CORPUSCULAR HEMOGLOBIN 23 pg (25-35); MEAN CORPUSCULAR HGB CONC 31 g/dL (31-37); MEAN CORPUSCULAR VOLUME 74 fL (79-100); MONO # 0.1 x10^3/uL (0.0-1.1); MONO % 2 % (0-9); NEUT # 4.4 x10^3uL (1.8-7.7); NEUT % 87 % (31-73); PLATELET COUNT 368 x10^3/uL (140-400); RED BLOOD COUNT 4.59 x10^6/uL (4.30-5.70); RED CELL DISTRIBUTION WIDTH 20.5 % (11.5-14.5); WHITE BLOOD COUNT 5.1 x10^3/uL (4.0-11.0)
[2018-12-11 04:46] LABS: CALCIUM 9.3 mg/dL (8.5-10.1); CREATININE 1.2 mg/dL (0.7-1.3); GFR 71.2; POTASSIUM 4.8 mmol/L (3.5-5.1)
[2018-12-11 05:13] LABS: % BASOS 1 % (0-3); % LYMPHS 14 % (24-48); % SEGS 85 % (35-66); ANISOCYTOSIS MOD; HELMET CELLS OCC; HYPOCHROMIA MOD; MICROCYTOSIS SLIGHT; PLT ESTIMATE ADEQUATE (ADEQUATE); POIKILOCYTOSIS SLIGHT; POLYCHROMASIA SLIGHT
--- NOTE | 2018-12-11 06:56 | PDOC ---
Provider Note Provider Note [id number] acute resp fail ae of copd acute bronchitis see orders ALYSIA GARCIA MD Dec 11, 2018 06:56
[2018-12-11 07:00] VITALS: BP 105/67
--- NOTE | 2018-12-11 07:32 | CONS ---
DATE OF CONSULTATION: 12/11/2018 I was asked to see this 78-year-old gentleman for shortness of breath, acute exacerbation of COPD. HISTORY OF PRESENT ILLNESS: He does have history of at least a [id number] smoking, stopped smoking few weeks ago. He does have COPD, has nebulizer at home, which he does use every day. He had a pacemaker placed a few weeks ago, has had some pain around it. He has had increased shortness of breath, cough and wheezing for the past few days. He has a thick sputum production. He does not know if he had fever or chills. He did have some chest pain at home, but not today. He has a runny nose, but denies gastroesophageal reflux symptoms. PAST MEDICAL HISTORY: AICD with recent repair due to lead fracture, CABG, cataract removal, hernia repair, COPD, nonischemic cardiomyopathy, paroxysmal atrial fibrillation and abdominal aortic aneurysm with repair. ALLERGIES: IODINE ORAL AND IV, DYE, ADHESIVE, LATEX. MEDICATIONS: Currently, he is on DuoNeb, trazodone, Betapace, Zocor, Remeron, Colace, Pulmicort, Xarelto, Protonix, vitamin B, digoxin, Plavix and gabapentin. SOCIAL HISTORY: History of at least [id number] smoking, stopped smoking few weeks ago. FAMILY HISTORY: There is no history of lung disease. REVIEW OF SYSTEMS: As mentioned as above, other systems otherwise negative. PHYSICAL EXAMINATION: GENERAL: This is an elderly gentleman. VITAL SIGNS: His O2 saturation is 96% on 2 liters of oxygen, respiratory rate 22, heart rate 100, blood pressure 110/78, temperature 98.7. HEENT: Normocephalic, atraumatic. Pupils equal, round, reactive to light. Throat is clear. Nose is clear. NECK: There is no JVD, lymphadenopathy or thyromegaly. CARDIOVASCULAR: Regular rate and rhythm. PMI is nondisplaced. CHEST: Inspection is normal. LUNGS: There is bilateral end-expiratory wheezing. Percussion is within normal limit. ABDOMEN: Soft. Bowel sounds are good. There is no mass. EXTREMITIES: There is no edema. LYMPHATICS: There is no lymphadenopathy. NEUROLOGIC: Alert and oriented. SKIN: Warm. LABORATORY DATA: I reviewed the following lab data: Chest x-ray does not show infiltrate, shows COPD changes. Lower extremity venous Doppler is negative. V/Q scan is intermediate. WBC 5.1, hemoglobin 10.4, platelets 368. Sodium 143, potassium 4.8, chloride 107, CO2 26, glucose 198, BUN 19, creatinine 1.2. Troponin 0.025, 0.035, 0.063 and this morning it is 0.048. BNP 305. IMPRESSION: 1. Acute respiratory failure secondary to acute exacerbation of chronic obstructive pulmonary disease, acute bronchitis versus others. 2. Acute exacerbation of chronic obstructive pulmonary disease. 3. Acute bronchitis. 4. Automatic implantable cardioverter defibrillator status post right ventricular lead replacement, lead fracture on 11/02/2018. 5. History of nonischemic cardiomyopathy. 6. Paroxysmal atrial fibrillation, on Xarelto. 7. Hyperlipidemia. 8. Status post abdominal aortic aneurysm and repair. 9. Ex-smoker. PLAN AND RECOMMENDATIONS: 1. Titrate FiO2 to keep O2 saturation 92%. He has been on oxygen at night at home. 2. Start Solu-Medrol 40 mg IV every 8. 3. Start Rocephin. 4. I reviewed his lower extremity venous Doppler, chest x-ray and V/Q scan. He has been on Xarelto, I doubt he has pulmonary embolism. We will continue Xarelto for paroxysmal atrial fibrillation. 5. Protonix for stress ulcer prophylaxis. 6. He would require LABA and inhaled corticosteroids at home like Symbicort or Advair. 7. Six-minute walk at the time of discharge: 8. AICD per coordinator of rehabilitation services. 9. Continue not smoking. 10. The findings and recommendations were discussed with the patient and RN. He understood and agreed to proceed with the plan. I have answered all of his questions. Thank you very much for allowing me to participate in care of this very nice gentleman. ALYSIA GARCIA M.D. : NATHAN/tess JOB#: [id number] / [id number]
[2018-12-11] MEDS: IPRATRPIUM/ALBUTEROL 0.5/2.5MG 3 ML NEBU. NEB SCH ×4 (07:47→19:40)
[2018-12-11] MEDS: BUDESONIDE 0.5 MG/2 ML NEBU. NEB SCH ×2 (07:47→19:40)
[2018-12-11] MEDS: DOCUSATE SODIUM 100 MG CAPSULE. PO SCH (08:19)
[2018-12-11] MEDS: THIAMINE 100 MG TABLET. PO SCH (08:19)
[2018-12-11] MEDS: DIGOXIN 125 MCG TABLET. PO SCH (08:19)
[2018-12-11] MEDS: CLOPIDOGREL BISULFATE 75 MG TABLET PO SCH (08:20)
[2018-12-11] MEDS: SOTALOL 80 MG TABLET. PO SCH ×2 (08:21→21:30)
[2018-12-11] MEDS: PANTOPRAZOLE 40 MG TABLET.DR. PO SCH (08:22)
[2018-12-11] MEDS: oxyCODONE IR 5 MG TABLET PO PRN ×3 (08:23→21:29)
[2018-12-11] MEDS: POLYETHYLENE GLYCOL 3350 17 GM PACKET. PO SCH (08:24)
[2018-12-11] MEDS: cefTRIAXone IV Push 1 GM VIAL. IVP SCH (08:26)
--- NOTE | 2018-12-11 10:26 | PDOC ---
PROGRESS NOTES Chief Complaint Chief Complaint Acute COPD exacerbation - has albuterol but no home routine maintenance inhaler. Pulmicort, anitra, consult pulm CHF s/p AICD - per cardiology - recent RV lead replacement due to lead fracture 11/02/2018. Interrogation revealed no significant arrhythmias since lead repair. <0.1% AFIB burden. NYHA 1-2. Recovered EF at 50-55% AFIB - sinus on monitor. On sotalol and xarelto as well as digoxin. His EF is normalized now, digoxin level therapeutic, maybe he does not need it, will defer to cards HLD - cont statin S/p AAA, Iliac artery aneurysm repair. Stable. Chest pain - negative trop. EKG Sr without acute changes. recent stress testing with MPI last summer 2017 showed no reversible ischemia. Will consult cardiology PPX - Xarelto FULL CODE Inpatient for acute COPD exacerbation and chest pain, at least 2 midnights History of Present Illness History of Present Illness Patient sitting in chair in no apparent distress. His respiratory status seems to be improved compared to admission. Patient relates to me that he is for the most part wheelchair and bedbound since he is unable to walk secondary to back pain. Patient does not have cauda equina type symptoms no fever or chills reported overnight no acute events reported overnight overall improved compared to admission plan of care explained in detail Vitals Vitals Vital Signs Date Time Temp Pulse Resp B/P (MAP) Pulse Ox O2 Delivery O2 Flow Rate FiO2 12/11/18 08:23 Nasal Cannula 1.0 12/11/18 08:21 85 103/69 12/11/18 07:47 97 12/11/18 07:00 98.1 18 98.1 Physical Exam General: Alert, Oriented X3, Cooperative, moderate distress Heart: Regular rate (SR), Normal S1, Normal S2, No murmurs Lungs: Clear Abdomen: Normal bowel sounds, Soft, No tenderness, No hepatosplenomegaly, No masses Extremities: No clubbing, No cyanosis, No edema, Normal pulses, No tenderness/ swelling Skin: No rashes, No breakdown, No significant lesion Labs LABS Laboratory Tests Test 12/10/18 10:43 12/10/18 14:35 12/10/18 17:15 12/11/18 04:00 White Blood Count 6.4 x10^3/uL (4.0-11.0) 5.1 x10^3/uL (4.0-11.0) Red Blood Count 4.86 x10^6/uL (4.30-5.70) 4.59 x10^6/uL (4.30-5.70) Hemoglobin 11.2 g/dL (13.0-17.5) 10.4 g/dL (13.0-17.5) Hematocrit 36.2 % (39.0-53.0) 34.0 % (39.0-53.0) Mean Corpuscular Volume 75 fL (79-100) 74 fL (79-100) Mean Corpuscular Hemoglobin 23 pg (25-35) 23 pg (25-35) Mean Corpuscular Hemoglobin Concent 31 g/dL (31-37) 31 g/dL (31-37) Red Cell Distribution Width 20.9 % (11.5-14.5) 20.5 % (11.5-14.5) Platelet Count 377 x10^3/uL (140-400) 368 x10^3/uL (140-400) Neutrophils (%) (Auto) 57 % (31-73) 87 % (31-73) Lymphocytes (%) (Auto) 22 % (24-48) 11 % (24-48) Monocytes (%) (Auto) 10 % (0-9) 2 % (0-9) Eosinophils (%) (Auto) 10 % (0-3) 0 % (0-3) Basophils (%) (Auto) 2 % (0-3) 0 % (0-3) Neutrophils # (Auto) 3.6 x10^3uL (1.8-7.7) 4.4 x10^3uL (1.8-7.7) Lymphocytes # (Auto) 1.4 x10^3/uL (1.0-4.8) 0.5 x10^3/uL (1.0-4.8) Monocytes # (Auto) 0.6 x10^3/uL (0.0-1.1) 0.1 x10^3/uL (0.0-1.1) Eosinophils # (Auto) 0.6 x10^3/uL (0.0-0.7) 0.0 x10^3/uL (0.0-0.7) Basophils # (Auto) 0.1 x10^3/uL (0.0-0.2) 0.0 x10^3/uL (0.0-0.2) Platelet Estimate Adequate (ADEQUATE) Adequate (ADEQUATE) Large Platelets Few Polychromasia Slight Slight Hypochromasia Present Mod Poikilocytosis Slight Slight Anisocytosis Mod Mod Microcytosis Mod Slight Target Cells Few Helmet Cells Occ Occ Marie Cells Few Schistocytes Occ Prothrombin Time 18.9 SEC (11.7-14.0) Prothromb Time International Ratio 1.6 (0.8-1.1) Sodium Level 143 mmol/L (136-145) 143 mmol/L (136-145) Potassium Level 4.7 mmol/L (3.5-5.1) 4.8 mmol/L (3.5-5.1) Chloride Level 103 mmol/L (98-107) 107 mmol/L (98-107) Carbon Dioxide Level 28 mmol/L (21-32) 26 mmol/L (21-32) Anion Gap 12 (6-14) 10 (6-14) Blood Urea Nitrogen 19 mg/dL (8-26) 19 mg/dL (8-26) Creatinine 1.1 mg/dL (0.7-1.3) 1.2 mg/dL (0.7-1.3) Estimated GFR (Cockcroft-Gault) 78.7 71.2 BUN/Creatinine Ratio 17 (6-20) Glucose Level 109 mg/dL (70-99) 198 mg/dL (70-99) Calcium Level 9.6 mg/dL (8.5-10.1) 9.3 mg/dL (8.5-10.1) Magnesium Level 2.2 mg/dL (1.8-2.4) Total Bilirubin 0.5 mg/dL (0.2-1.0) Aspartate Amino Transf (AST/SGOT) 16 U/L (15-37) Alanine Aminotransferase (ALT/SGPT) 14 U/L (16-63) Alkaline Phosphatase 99 U/L (46-116) Troponin I Quantitative 0.025 ng/mL (0.000-0.055) 0.035 ng/mL (0.000-0.055) 0.063 ng/mL (0.000-0.055) 0.048 ng/mL (0.000-0.055) RX-Uof-O-Type Natriuretic Peptide 305 pg/mL (0-449) Total Protein 7.6 g/dL (6.4-8.2) Albumin 4.1 g/dL (3.4-5.0) Albumin/Globulin Ratio 1.2 (1.0-1.7) Digoxin Level 0.6 ng/mL (0.9-2.0) Digoxin Last Dose Date Unknown Digoxin Last Dose Time Unknown Segmented Neutrophils % 85 % (35-66) Lymphocytes % 14 % (24-48) Basophils % 1 % (0-3) Crenated Cell Present Review of Systems Review of Systems pertinent as per hpi otherwise negative Assessment and Plan Assessmemt and Plan Problems Medical Problems: (1) Chest pain Status: Acute Comment Review of Relevant I have reviewed the following items [email or web address] (where applicable) has been applied. Labs Laboratory Tests Test 12/10/18 10:43 12/10/18 14:35 12/10/18 17:15 12/11/18 04:00 White Blood Count 6.4 x10^3/uL (4.0-11.0) 5.1 x10^3/uL (4.0-11.0) Red Blood Count 4.86 x10^6/uL (4.30-5.70) 4.59 x10^6/uL (4.30-5.70) Hemoglobin 11.2 g/dL (13.0-17.5) 10.4 g/dL (13.0-17.5) Hematocrit 36.2 % (39.0-53.0) 34.0 % (39.0-53.0) Mean Corpuscular Volume 75 fL (79-100) 74 fL (79-100) Mean Corpuscular Hemoglobin 23 pg (25-35) 23 pg (25-35) Mean Corpuscular Hemoglobin Concent 31 g/dL (31-37) 31 g/dL (31-37) Red Cell Distribution Width 20.9 % (11.5-14.5) 20.5 % (11.5-14.5) Platelet Count 377 x10^3/uL (140-400) 368 x10^3/uL (140-400) Neutrophils (%) (Auto) 57 % (31-73) 87 % (31-73) Lymphocytes (%) (Auto) 22 % (24-48) 11 % (24-48) Monocytes (%) (Auto) 10 % (0-9) 2 % (0-9) Eosinophils (%) (Auto) 10 % (0-3) 0 % (0-3) Basophils (%) (Auto) 2 % (0-3) 0 % (0-3) Neutrophils # (Auto) 3.6 x10^3uL (1.8-7.7) 4.4 x10^3uL (1.8-7.7) Lymphocytes # (Auto) 1.4 x10^3/uL (1.0-4.8) 0.5 x10^3/uL (1.0-4.8) Monocytes # (Auto) 0.6 x10^3/uL (0.0-1.1) 0.1 x10^3/uL (0.0-1.1) Eosinophils # (Auto) 0.6 x10^3/uL (0.0-0.7) 0.0 x10^3/uL (0.0-0.7) Basophils # (Auto) 0.1 x10^3/uL (0.0-0.2) 0.0 x10^3/uL (0.0-0.2) Platelet Estimate Adequate (ADEQUATE) Adequate (ADEQUATE) Large Platelets Few Polychromasia Slight Slight Hypochromasia Present Mod Poikilocytosis Slight Slight Anisocytosis Mod Mod Microcytosis Mod Slight Target Cells Few Helmet Cells Occ Occ Marie Cells Few Schistocytes Occ Prothrombin Time 18.9 SEC (11.7-14.0) Prothromb Time International Ratio 1.6 (0.8-1.1) Sodium Level 143 mmol/L (136-145) 143 mmol/L (136-145) Potassium Level 4.7 mmol/L (3.5-5.1) 4.8 mmol/L (3.5-5.1) Chloride Level 103 mmol/L (98-107) 107 mmol/L (98-107) Carbon Dioxide Level 28 mmol/L (21-32) 26 mmol/L (21-32) Anion Gap 12 (6-14) 10 (6-14) Blood Urea Nitrogen 19 mg/dL (8-26) 19 mg/dL (8-26) Creatinine 1.1 mg/dL (0.7-1.3) 1.2 mg/dL (0.7-1.3) Estimated GFR (Cockcroft-Gault) 78.7 71.2 BUN/Creatinine Ratio 17 (6-20) Glucose Level 109 mg/dL (70-99) 198 mg/dL (70-99) Calcium Level 9.6 mg/dL (8.5-10.1) 9.3 mg/dL (8.5-10.1) Magnesium Level 2.2 mg/dL (1.8-2.4) Total Bilirubin 0.5 mg/dL (0.2-1.0) Aspartate Amino Transf (AST/SGOT) 16 U/L (15-37) Alanine Aminotransferase (ALT/SGPT) 14 U/L (16-63) Alkaline Phosphatase 99 U/L (46-116) Troponin I Quantitative 0.025 ng/mL (0.000-0.055) 0.035 ng/mL (0.000-0.055) 0.063 ng/mL (0.000-0.055) 0.048 ng/mL (0.000-0.055) RF-Lic-O-Type Natriuretic Peptide 305 pg/mL (0-449) Total Protein 7.6 g/dL (6.4-8.2) Albumin 4.1 g/dL (3.4-5.0) Albumin/Globulin Ratio 1.2 (1.0-1.7) Digoxin Level 0.6 ng/mL (0.9-2.0) Digoxin Last Dose Date Unknown Digoxin Last Dose Time Unknown Segmented Neutrophils % 85 % (35-66) Lymphocytes % 14 % (24-48) Basophils % 1 % (0-3) Crenated Cell Present Laboratory Tests Test 12/10/18 10:43 12/10/18 14:35 12/10/18 17:15 12/11/18 04:00 White Blood Count 6.4 x10^3/uL (4.0-11.0) 5.1 x10^3/uL (4.0-11.0) Red Blood Count 4.86 x10^6/uL (4.30-5.70) 4.59 x10^6/uL (4.30-5.70) Hemoglobin 11.2 g/dL (13.0-17.5) 10.4 g/dL (13.0-17.5) Hematocrit 36.2 % (39.0-53.0) 34.0 % (39.0-53.0) Mean Corpuscular Volume 75 fL (79-100) 74 fL (79-100) Mean Corpuscular Hemoglobin 23 pg (25-35) 23 pg (25-35) Mean Corpuscular Hemoglobin Concent 31 g/dL (31-37) 31 g/dL (31-37) Red Cell Distribution Width 20.9 % (11.5-14.5) 20.5 % (11.5-14.5) Platelet Count 377 x10^3/uL (140-400) 368 x10^3/uL (140-400) Neutrophils (%) (Auto) 57 % (31-73) 87 % (31-73) Lymphocytes (%) (Auto) 22 % (24-48) 11 % (24-48) Monocytes (%) (Auto) 10 % (0-9) 2 % (0-9) Eosinophils (%) (Auto) 10 % (0-3) 0 % (0-3) Basophils (%) (Auto) 2 % (0-3) 0 % (0-3) Neutrophils # (Auto) 3.6 x10^3uL (1.8-7.7) 4.4 x10^3uL (1.8-7.7) Lymphocytes # (Auto) 1.4 x10^3/uL (1.0-4.8) 0.5 x10^3/uL (1.0-4.8) Monocytes # (Auto) 0.6 x10^3/uL (0.0-1.1) 0.1 x10^3/uL (0.0-1.1) Eosinophils # (Auto) 0.6 x10^3/uL (0.0-0.7) 0.0 x10^3/uL (0.0-0.7) Basophils # (Auto) 0.1 x10^3/uL (0.0-0.2) 0.0 x10^3/uL (0.0-0.2) Platelet Estimate Adequate (ADEQUATE) Adequate (ADEQUATE) Large Platelets Few Polychromasia Slight Slight Hypochromasia Present Mod Poikilocytosis Slight Slight Anisocytosis Mod Mod Microcytosis Mod Slight Target Cells Few Helmet Cells Occ Occ Marie Cells Few Schistocytes Occ Prothrombin Time 18.9 SEC (11.7-14.0) Prothromb Time International Ratio 1.6 (0.8-1.1) Sodium Level 143 mmol/L (136-145) 143 mmol/L (136-145) Potassium Level 4.7 mmol/L (3.5-5.1) 4.8 mmol/L (3.5-5.1) Chloride Level 103 mmol/L (98-107) 107 mmol/L (98-107) Carbon Dioxide Level 28 mmol/L (21-32) 26 mmol/L (21-32) Anion Gap 12 (6-14) 10 (6-14) Blood Urea Nitrogen 19 mg/dL (8-26) 19 mg/dL (8-26) Creatinine 1.1 mg/dL (0.7-1.3) 1.2 mg/dL (0.7-1.3) Estimated GFR (Cockcroft-Gault) 78.7 71.2 BUN/Creatinine Ratio 17 (6-20) Glucose Level 109 mg/dL (70-99) 198 mg/dL (70-99) Calcium Level 9.6 mg/dL (8.5-10.1) 9.3 mg/dL (8.5-10.1) Magnesium Level 2.2 mg/dL (1.8-2.4) Total Bilirubin 0.5 mg/dL (0.2-1.0) Aspartate Amino Transf (AST/SGOT) 16 U/L (15-37) Alanine Aminotransferase (ALT/SGPT) 14 U/L (16-63) Alkaline Phosphatase 99 U/L (46-116) Troponin I Quantitative 0.025 ng/mL (0.000-0.055) 0.035 ng/mL (0.000-0.055) 0.063 ng/mL (0.000-0.055) 0.048 ng/mL (0.000-0.055) GG-Lzb-N-Type Natriuretic Peptide 305 pg/mL (0-449) Total Protein 7.6 g/dL (6.4-8.2) Albumin 4.1 g/dL (3.4-5.0) Albumin/Globulin Ratio 1.2 (1.0-1.7) Digoxin Level 0.6 ng/mL (0.9-2.0) Digoxin Last Dose Date Unknown Digoxin Last Dose Time Unknown Segmented Neutrophils % 85 % (35-66) Lymphocytes % 14 % (24-48) Basophils % 1 % (0-3) Crenated Cell Present Medications Current Medications Sodium Chloride 1,000 ml @ 250 mls/hr 1X ONCE IV Last administered on 10:50; Start 12/10/18 at 12:45; Stop 12/10/18 at 16:44; Status DC Albuterol/ Ipratropium (Duoneb) 3 ml 1X ONCE NEB Last administered on 13:47; Start 12/10/18 at 13:45; Stop 12/10/18 at 13:46; Status DC Albuterol Sulfate (Ventolin Neb Soln) 2.5 mg PRN Q6HRS PRN INH SHORTNESS OF BREATH Last administered on 12/11/18 04:25; Start 12/10/18 at 14:00 Clopidogrel Bisulfate (Plavix) 75 mg DAILY PO Last administered on 12/11/18 08 :20; Start 12/10/18 at 15:00 Digoxin (Lanoxin) 125 mcg DAILY PO Last administered on 12/11/18 08:19; Start 12/10/18 at 15:00 Gabapentin (Neurontin) 300 mg PRN TID PRN PO PAIN Last administered on 20:52; Start 12/10/18 at 14:00 Albuterol/ Ipratropium (Duoneb) 3 ml QIDPRN PRN NEB SHORTNESS OF BREATH; Start 12/10/18 at 14:00; Status UNV Albuterol/ Ipratropium (Duoneb) 3 ml RTQID NEB Last administered on 12/11/18 07:47; Start 12/10/18 at 16:00 Rivaroxaban (Xarelto) 20 mg DAILYWSUP PO Last administered on 12/10/18 16:52; Start 12/10/18 at 17:00 Mirtazapine (Remeron) 15 mg QHS PO Last administered on 12/10/18 20:51; Start 12/10/18 at 21:00 Simvastatin (Zocor) 20 mg HS PO Last administered on 12/10/18 20:51; Start at 21:00 Thiamine Mononitrate (Vitamin B-1) 100 mg DAILY PO Last administered on 08:19; Start 12/10/18 at 15:00 Pantoprazole Sodium (Protonix) 40 mg DAILYAC PO Last administered on 12/11/18 08:22; Start 12/10/18 at 15:00 Budesonide (Pulmicort) 0.5 mg RTBID NEB Last administered on 12/11/18 07:47; Start 12/10/18 at 20:00 Sotalol HCl (Betapace) 40 mg BID PO Last administered on 12/11/18 08:21; Start 12/10/18 at 21:00 Info (Anti-Coagulation Monitoring By Pharmacy) 1 each PRN DAILY PRN MC SEE COMMENTS; Start 12/10/18 at 14:15 Methylprednisolone Sodium Succinate (SOLU-Medrol 125MG VIAL) 80 mg 1X ONCE IV Last administered on 12/10/18 20:59; Start 12/10/18 at 21:00; Stop 12/10/18 at 21:01; Status DC Trazodone HCl (Desyrel) 100 mg QHS PO Last administered on 12/10/18 20:51; Start 12/10/18 at 21:00 Oxycodone HCl (Roxicodone) 20 mg PRN TID PRN PO PAIN Last administered on 08:23; Start 12/10/18 at 20:45 Polyethylene Glycol (miraLAX PACKET) 17 gm DAILY PO Last administered on 08:24; Start 12/10/18 at 20:45 Docusate Sodium (Colace) 100 mg DAILY PO Last administered on 12/11/18 08:19; Start 12/10/18 at 20:45 Ceftriaxone Sodium (Rocephin) 1 gm Q24H IVP Last administered on 12/11/18 08: 26; Start 12/11/18 at 07:00 Methylprednisolone Sodium Succinate (SOLU-Medrol 40MG VIAL) 40 mg Q8HRS IV ; Start 12/11/18 at 14:00 Active Scripts Active Prednisone 20 Mg Tablet 40 Mg PO DAILY 5 Days Betapace (Sotalol Hcl) 80 Mg Tablet 40 Mg PO BID 30 Days Duoneb 0.5-3(2.5) Mg/3 Ml (Albuterol/Ipratropium) 3 Ml Ampul.neb 3 Ml NEB RTQID 30 Days Vitamin B-1 (Thiamine Mononitrate) 100 Mg Tablet 100 Mg PO DAILY 30 Days [Pantoprazole] 40 MG Tablet.dr 40 Mg PO DAILYAC 30 Days Proair Hfa Inhaler (Albuterol Sulfate) 8.5 Gm Hfa.aer.ad 1 Puff INH PRN Q6HRS PRN Reported Trazodone Hcl 100 Mg Tablet 100 Mg PO QHS Oxycodone Hcl 20 Mg Tablet 20 Mg PO TID PRN PRN Duoneb 0.5-3(2.5) Mg/3 Ml (Albuterol/Ipratropium) 3 Ml Ampul.neb 3 Ml NEB QIDPRN PRN Remeron (Mirtazapine) 15 Mg Tablet 1 Tab PO QHS Xarelto (Rivaroxaban) 15 Mg Tablet 20 Mg PO HS Simvastatin 20 Mg Tablet 1 Tab PO QHS Gabapentin (Gabapentin) 300 Mg Capsule 300 Mg PO PRN TID PRN can take 1 or 2 capsules Plavix (Clopidogrel Bisulfate) 75 Mg Tablet 75 Mg PO DAILY Digoxin 125 Mcg Tablet 125 Mcg PO DAILY Vitals/I & O Vital Sign - Last 24 Hours 12/10/18 12/10/18 12/10/18 12/10/18 10:48 10:49 10:56 11:26 Pulse 84 84 82 72 Resp 16 18 B/P (MAP) 64/50 (55) 103/75 (84) 134/81 (98) 142/84 (103) Pulse Ox 97 97 95 97 O2 Delivery Nasal Cannula Room Air Room Air Room Air 12/10/18 12/10/18 12/10/18 12/10/18 11:56 12:26 13:30 13:48 Temp 97.3 97.3 Pulse 72 80 60 Resp 16 18 22 B/P (MAP) 134/92 (106) 143/88 (106) 212/106 (141) Pulse Ox 97 97 98 100 O2 Delivery Room Air Room Air Room Air Nasal Cannula O2 Flow Rate 2.0 12/10/18 12/10/18 12/10/18 12/10/18 13:57 14:46 15:00 15:22 Temp 98.0 98.0 Pulse 89 88 82 Resp 16 18 B/P (MAP) 150/96 (114) 126/84 (98) 122/86 Pulse Ox 100 95 99 O2 Delivery Room Air Room Air Nasal Cannula O2 Flow Rate 2.0 12/10/18 12/10/18 12/10/18 12/10/18 17:03 17:04 17:04 19:05 Temp 98.2 98.2 Pulse 83 91 70 85 Resp 22 B/P (MAP) 124/71 (88) 95/60 (72) 91/56 (68) 92/65 (74) Pulse Ox 99 O2 Delivery Nasal Cannula O2 Flow Rate 2.0 12/10/18 12/10/18 12/10/18 12/10/18 19:45 20:00 20:52 20:52 Pulse 85 Resp 20 B/P (MAP) 92/65 Pulse Ox 100 97 O2 Delivery Nasal Cannula Nasal Cannula O2 Flow Rate 2.0 2.0 2.0 12/10/18 12/10/18 12/11/18 12/11/18 21:52 23:00 03:30 04:24 Temp 98.2 98.7 98.2 98.7 Pulse 77 102 Resp 20 21 22 B/P (MAP) 119/79 (92) 110/78 (89) Pulse Ox 98 95 96 O2 Delivery Nasal Cannula Nasal Cannula Room Air Nasal Cannula O2 Flow Rate 2.0 2.0 2.0 12/11/18 12/11/18 12/11/18 12/11/18 07:00 07:20 07:47 08:19 Temp 98.1 98.1 Pulse 82 90 Resp 18 B/P (MAP) 105/67 (80) 103/69 Pulse Ox 97 97 O2 Delivery Nasal Cannula Nasal Cannula Nasal Cannula O2 Flow Rate 2.0 2.0 1.0 12/11/18 12/11/18 08:21 08:23 Pulse 85 B/P (MAP) 103/69 O2 Delivery Nasal Cannula O2 Flow Rate 1.0 Intake and Output 12/10/18 12/10/18 12/11/18 14:59 22:59 06:59 Intake Total 250 ml 0 ml 220 ml Balance 250 ml 0 ml 220 ml ULICES LOPEZ MD Dec 11, 2018 10:26
[2018-12-11] MEDS ORDERED: guaiFENesin ORAL 200 MG/10 ML LIQUID. PO PRN (10:30)
[2018-12-11 10:45] VITALS: BP 116/72
[2018-12-11] MEDS: GABAPENTIN 300 MG CAPSULE. PO PRN (14:02)
[2018-12-11] MEDS: methylPREDNISolone SOD SUCC PF 40 MG/ML VIAL. IV SCH ×2 (14:03→21:31)
[2018-12-11 15:00] VITALS: BP 109/61
[2018-12-11] MEDS: RIVAROXABAN 10 MG TABLET. PO SCH (17:41)
--- NOTE | 2018-12-11 18:32 | NUR ---
Patient has been complaining of "cramps" today. Patient pointing to HEATHER abd/L rib area when this happens. Oxycodone administered to see if will help. Miralax & docusate was administered this morning. No BM today yet. Will continue to monitor.
[2018-12-11 19:00] VITALS: BP 138/75
[2018-12-11] MEDS: SIMVASTATIN 20 MG TABLET PO SCH (21:29)
[2018-12-11] MEDS: MIRTAZAPINE 15 MG TABLET PO SCH (21:29)
[2018-12-11] MEDS: traZODone 100 MG TABLET. PO SCH (21:29)
[2018-12-11 23:35] VITALS: BP 141/80
[2018-12-12 03:50] VITALS: BP 136/80
[2018-12-12] MEDS: methylPREDNISolone SOD SUCC PF 40 MG/ML VIAL. IV SCH ×3 (06:03→20:44)
--- NOTE | 2018-12-12 07:10 | PDOC ---
PULMONARY PROGRESS NOTES Subjective sob better, has cough, no cp Vitals Vital Signs Date Time Temp Pulse Resp B/P (MAP) Pulse Ox O2 Delivery O2 Flow Rate FiO2 12/12/18 03:50 98.2 72 18 136/80 (98) 97 Nasal Cannula 2.0 98.2 ROS: No Nausea General: Alert, No acute distress HEENT: Other (nc at perrl) Lungs: Crackles Cardiovascular: S1, S2 Abdomen: Soft, Non-tender Neuro Exam: Alert, Oriented Extremities: No Edema Skin: Warm Labs Laboratory Tests Test 12/10/18 10:43 12/10/18 14:35 12/10/18 17:15 12/11/18 04:00 White Blood Count 6.4 x10^3/uL (4.0-11.0) 5.1 x10^3/uL (4.0-11.0) Red Blood Count 4.86 x10^6/uL (4.30-5.70) 4.59 x10^6/uL (4.30-5.70) Hemoglobin 11.2 g/dL (13.0-17.5) 10.4 g/dL (13.0-17.5) Hematocrit 36.2 % (39.0-53.0) 34.0 % (39.0-53.0) Mean Corpuscular Volume 75 fL (79-100) 74 fL (79-100) Mean Corpuscular Hemoglobin 23 pg (25-35) 23 pg (25-35) Mean Corpuscular Hemoglobin Concent 31 g/dL (31-37) 31 g/dL (31-37) Red Cell Distribution Width 20.9 % (11.5-14.5) 20.5 % (11.5-14.5) Platelet Count 377 x10^3/uL (140-400) 368 x10^3/uL (140-400) Neutrophils (%) (Auto) 57 % (31-73) 87 % (31-73) Lymphocytes (%) (Auto) 22 % (24-48) 11 % (24-48) Monocytes (%) (Auto) 10 % (0-9) 2 % (0-9) Eosinophils (%) (Auto) 10 % (0-3) 0 % (0-3) Basophils (%) (Auto) 2 % (0-3) 0 % (0-3) Neutrophils # (Auto) 3.6 x10^3uL (1.8-7.7) 4.4 x10^3uL (1.8-7.7) Lymphocytes # (Auto) 1.4 x10^3/uL (1.0-4.8) 0.5 x10^3/uL (1.0-4.8) Monocytes # (Auto) 0.6 x10^3/uL (0.0-1.1) 0.1 x10^3/uL (0.0-1.1) Eosinophils # (Auto) 0.6 x10^3/uL (0.0-0.7) 0.0 x10^3/uL (0.0-0.7) Basophils # (Auto) 0.1 x10^3/uL (0.0-0.2) 0.0 x10^3/uL (0.0-0.2) Platelet Estimate Adequate (ADEQUATE) Adequate (ADEQUATE) Large Platelets Few Polychromasia Slight Slight Hypochromasia Present Mod Poikilocytosis Slight Slight Anisocytosis Mod Mod Microcytosis Mod Slight Target Cells Few Helmet Cells Occ Occ Marie Cells Few Schistocytes Occ Prothrombin Time 18.9 SEC (11.7-14.0) Prothromb Time International Ratio 1.6 (0.8-1.1) Sodium Level 143 mmol/L (136-145) 143 mmol/L (136-145) Potassium Level 4.7 mmol/L (3.5-5.1) 4.8 mmol/L (3.5-5.1) Chloride Level 103 mmol/L (98-107) 107 mmol/L (98-107) Carbon Dioxide Level 28 mmol/L (21-32) 26 mmol/L (21-32) Anion Gap 12 (6-14) 10 (6-14) Blood Urea Nitrogen 19 mg/dL (8-26) 19 mg/dL (8-26) Creatinine 1.1 mg/dL (0.7-1.3) 1.2 mg/dL (0.7-1.3) Estimated GFR (Cockcroft-Gault) 78.7 71.2 BUN/Creatinine Ratio 17 (6-20) Glucose Level 109 mg/dL (70-99) 198 mg/dL (70-99) Calcium Level 9.6 mg/dL (8.5-10.1) 9.3 mg/dL (8.5-10.1) Magnesium Level 2.2 mg/dL (1.8-2.4) Total Bilirubin 0.5 mg/dL (0.2-1.0) Aspartate Amino Transf (AST/SGOT) 16 U/L (15-37) Alanine Aminotransferase (ALT/SGPT) 14 U/L (16-63) Alkaline Phosphatase 99 U/L (46-116) Troponin I Quantitative 0.025 ng/mL (0.000-0.055) 0.035 ng/mL (0.000-0.055) 0.063 ng/mL (0.000-0.055) 0.048 ng/mL (0.000-0.055) BB-Hqf-K-Type Natriuretic Peptide 305 pg/mL (0-449) Total Protein 7.6 g/dL (6.4-8.2) Albumin 4.1 g/dL (3.4-5.0) Albumin/Globulin Ratio 1.2 (1.0-1.7) Digoxin Level 0.6 ng/mL (0.9-2.0) Digoxin Last Dose Date Unknown Digoxin Last Dose Time Unknown Segmented Neutrophils % 85 % (35-66) Lymphocytes % 14 % (24-48) Basophils % 1 % (0-3) Crenated Cell Present Medications Active Scripts Medications Dose Route/Sig Max Daily Dose Days Date Category Dose Instructions Trazodone Hcl 100 Mg Tablet 100 Mg PO QHS 12/10/18 Reported Oxycodone Hcl 20 Mg Tablet 20 Mg PO TID PRN PRN 12/10/18 Reported Prednisone 20 Mg Tablet 40 Mg PO DAILY 5 11/05/18 Rx Betapace (Sotalol Hcl) 80 Mg Tablet 40 Mg PO BID 30 11/05/18 Rx Duoneb 0.5-3(2.5) Mg/3 Ml (Albuterol/Ipratropium) 3 Ml Ampul.neb 3 Ml NEB RTQID 30 11/05/18 Rx Vitamin B-1 (Thiamine Mononitrate) 100 Mg Tablet 100 Mg PO DAILY 30 08/23/18 Rx [Pantoprazole] 40 MG Tablet.dr 40 Mg PO DAILYAC 30 08/23/18 Rx Duoneb 0.5-3(2.5) Mg/3 Ml (Albuterol/Ipratropium) 3 Ml Ampul.neb 3 Ml NEB QIDPRN PRN 08/16/18 Reported Remeron (Mirtazapine) 15 Mg Tablet 1 Tab PO QHS 08/16/18 Reported Proair Hfa Inhaler (Albuterol Sulfate) 8.5 Gm Hfa.aer.ad 1 Puff INH PRN Q6HRS PRN 07/01/18 Rx Xarelto (Rivaroxaban) 15 Mg Tablet 20 Mg PO HS 03/26/15 Reported Simvastatin 20 Mg Tablet 1 Tab PO QHS 10/18/14 Reported Gabapentin (Gabapentin) 300 Mg Capsule 300 Mg PO PRN TID PRN 01/29/14 Reported can take 1 or 2 capsules Plavix (Clopidogrel Bisulfate) 75 Mg Tablet 75 Mg PO DAILY 01/29/14 Reported Digoxin 125 Mcg Tablet 125 Mcg PO DAILY 01/29/14 Reported Impression . IMPRESSION: 1. Acute respiratory failure secondary to acute exacerbation of chronic obstructive pulmonary disease, acute bronchitis versus others. 2. Acute exacerbation of chronic obstructive pulmonary disease. 3. Acute bronchitis. 4. Automatic implantable cardioverter defibrillator status post right ventricular lead replacement, lead fracture on 11/02/2018. 5. History of nonischemic cardiomyopathy. 6. Paroxysmal atrial fibrillation, on Xarelto. 7. Hyperlipidemia. 8. Status post abdominal aortic aneurysm and repair. 9. Ex-smoker. Plan . PLAN AND RECOMMENDATIONS: 1. Titrate FiO2 to keep O2 saturation 92%. He has been on oxygen at night at home. 2. change Solu-Medrol to 40 mg IV every 12. 3. cont Rocephin. 4. I reviewed his lower extremity venous Doppler, chest x-ray and V/Q scan. He has been on Xarelto, I doubt he has pulmonary embolism. We will continue Xarelto for paroxysmal atrial fibrillation. he has severe allergy to contrast, so we can not do cta. 5. Protonix for stress ulcer prophylaxis. 6. He would require LABA and inhaled corticosteroids at home like Symbicort or Advair. 7. Six-minute walk at the time of discharge: 8. AICD per injection molding process technician. 9. Continue not smoking. discussed w pt ALYSIA GARCIA MD Dec 12, 2018 07:10
[2018-12-12] MEDS: BUDESONIDE 0.5 MG/2 ML NEBU. NEB SCH ×2 (07:27→20:24)
[2018-12-12] MEDS: IPRATRPIUM/ALBUTEROL 0.5/2.5MG 3 ML NEBU. NEB SCH ×4 (07:27→20:24)
[2018-12-12 07:38] VITALS: BP 130/79
[2018-12-12] MEDS: CLOPIDOGREL BISULFATE 75 MG TABLET PO SCH (08:01)
[2018-12-12] MEDS: DOCUSATE SODIUM 100 MG CAPSULE. PO SCH (08:02)
[2018-12-12] MEDS: THIAMINE 100 MG TABLET. PO SCH (08:02)
[2018-12-12] MEDS: DIGOXIN 125 MCG TABLET. PO SCH (08:03)
[2018-12-12] MEDS: PANTOPRAZOLE 40 MG TABLET.DR. PO SCH (08:04)
[2018-12-12] MEDS: SOTALOL 80 MG TABLET. PO SCH ×2 (08:05→20:42)
[2018-12-12] MEDS: oxyCODONE IR 5 MG TABLET PO PRN (08:06)
[2018-12-12] MEDS: POLYETHYLENE GLYCOL 3350 17 GM PACKET. PO SCH ×2 (08:07→20:44)
[2018-12-12] MEDS: cefTRIAXone IV Push 1 GM VIAL. IVP SCH (08:09)
[2018-12-12 10:58] VITALS: BP 125/74
--- NOTE | 2018-12-12 12:53 | PDOC ---
PROGRESS NOTES Chief Complaint Chief Complaint Acute COPD exacerbation - has albuterol but no home routine maintenance inhaler. Pulmicort, anitra, consult pulm CHF s/p AICD - per cardiology - recent RV lead replacement due to lead fracture 11/02/2018. Interrogation revealed no significant arrhythmias since lead repair. <0.1% AFIB burden. NYHA 1-2. Recovered EF at 50-55% AFIB - sinus on monitor. On sotalol and xarelto as well as digoxin. His EF is normalized now, digoxin level therapeutic, maybe he does not need it, will defer to cards HLD - cont statin S/p AAA, Iliac artery aneurysm repair. Stable. Chest pain - negative trop. EKG Sr without acute changes. recent stress testing with MPI last summer 2017 showed no reversible ischemia. Will consult cardiology PPX - Xarelto FULL CODE Inpatient for acute COPD exacerbation and chest pain, at least 2 midnights History of Present Illness History of Present Illness Patient sitting in chair in no apparent distress. His respiratory status seems to be improved compared to admission. Patient relates to me that he is for the most part wheelchair and bedbound since he is unable to walk secondary to back pain. no fever or chills reported overnight no acute events reported overnight overall improved compared to admission plan of care explained in detail Vitals Vitals Vital Signs Date Time Temp Pulse Resp B/P (MAP) Pulse Ox O2 Delivery O2 Flow Rate FiO2 12/12/18 11:42 97 Nasal Cannula 1.0 12/12/18 10:58 97.9 75 18 125/74 (91) 97.9 Physical Exam General: Alert, Oriented X3, Cooperative, moderate distress Heart: Regular rate (SR), Normal S1, Normal S2, No murmurs Lungs: Crackles Abdomen: Normal bowel sounds, Soft, No tenderness, No hepatosplenomegaly, No masses Extremities: No clubbing, No cyanosis, No edema, Normal pulses, No tenderness/ swelling Skin: No rashes, No breakdown, No significant lesion Review of Systems Review of Systems Pertinent as per history of present illness otherwise 14 point review of system is negative Assessment and Plan Assessmemt and Plan Problems Medical Problems: (1) Chest pain Status: Acute Comment Review of Relevant I have reviewed the following items mckayla (where applicable) has been applied. Labs Laboratory Tests Test 12/10/18 14:35 12/10/18 17:15 12/11/18 04:00 Troponin I Quantitative 0.035 ng/mL (0.000-0.055) 0.063 ng/mL (0.000-0.055) 0.048 ng/mL (0.000-0.055) White Blood Count 5.1 x10^3/uL (4.0-11.0) Red Blood Count 4.59 x10^6/uL (4.30-5.70) Hemoglobin 10.4 g/dL (13.0-17.5) Hematocrit 34.0 % (39.0-53.0) Mean Corpuscular Volume 74 fL (79-100) Mean Corpuscular Hemoglobin 23 pg (25-35) Mean Corpuscular Hemoglobin Concent 31 g/dL (31-37) Red Cell Distribution Width 20.5 % (11.5-14.5) Platelet Count 368 x10^3/uL (140-400) Neutrophils (%) (Auto) 87 % (31-73) Lymphocytes (%) (Auto) 11 % (24-48) Monocytes (%) (Auto) 2 % (0-9) Eosinophils (%) (Auto) 0 % (0-3) Basophils (%) (Auto) 0 % (0-3) Neutrophils # (Auto) 4.4 x10^3uL (1.8-7.7) Lymphocytes # (Auto) 0.5 x10^3/uL (1.0-4.8) Monocytes # (Auto) 0.1 x10^3/uL (0.0-1.1) Eosinophils # (Auto) 0.0 x10^3/uL (0.0-0.7) Basophils # (Auto) 0.0 x10^3/uL (0.0-0.2) Segmented Neutrophils % 85 % (35-66) Lymphocytes % 14 % (24-48) Basophils % 1 % (0-3) Platelet Estimate Adequate (ADEQUATE) Polychromasia Slight Hypochromasia Mod Poikilocytosis Slight Anisocytosis Mod Microcytosis Slight Helmet Cells Occ Crenated Cell Present Sodium Level 143 mmol/L (136-145) Potassium Level 4.8 mmol/L (3.5-5.1) Chloride Level 107 mmol/L (98-107) Carbon Dioxide Level 26 mmol/L (21-32) Anion Gap 10 (6-14) Blood Urea Nitrogen 19 mg/dL (8-26) Creatinine 1.2 mg/dL (0.7-1.3) Estimated GFR (Cockcroft-Gault) 71.2 Glucose Level 198 mg/dL (70-99) Calcium Level 9.3 mg/dL (8.5-10.1) Medications Current Medications Sodium Chloride 1,000 ml @ 250 mls/hr 1X ONCE IV Last administered on 10:50; Start 12/10/18 at 12:45; Stop 12/10/18 at 16:44; Status DC Albuterol/ Ipratropium (Duoneb) 3 ml 1X ONCE NEB Last administered on 13:47; Start 12/10/18 at 13:45; Stop 12/10/18 at 13:46; Status DC Albuterol Sulfate (Ventolin Neb Soln) 2.5 mg PRN Q6HRS PRN INH SHORTNESS OF BREATH Last administered on 12/11/18 04:25; Start 12/10/18 at 14:00 Clopidogrel Bisulfate (Plavix) 75 mg DAILY PO Last administered on 12/12/18 08 :01; Start 12/10/18 at 15:00 Digoxin (Lanoxin) 125 mcg DAILY PO Last administered on 12/12/18 08:03; Start 12/10/18 at 15:00 Gabapentin (Neurontin) 300 mg PRN TID PRN PO PAIN Last administered on 14:02; Start 12/10/18 at 14:00 Albuterol/ Ipratropium (Duoneb) 3 ml QIDPRN PRN NEB SHORTNESS OF BREATH; Start 12/10/18 at 14:00; Status UNV Albuterol/ Ipratropium (Duoneb) 3 ml RTQID NEB Last administered on 12/12/18 11:42; Start 12/10/18 at 16:00 Rivaroxaban (Xarelto) 20 mg DAILYWSUP PO Last administered on 12/11/18 17:41; Start 12/10/18 at 17:00 Mirtazapine (Remeron) 15 mg QHS PO Last administered on 12/11/18 21:29; Start 12/10/18 at 21:00 Simvastatin (Zocor) 20 mg HS PO Last administered on 12/11/18 21:29; Start at 21:00 Thiamine Mononitrate (Vitamin B-1) 100 mg DAILY PO Last administered on 08:02; Start 12/10/18 at 15:00 Pantoprazole Sodium (Protonix) 40 mg DAILYAC PO Last administered on 12/12/18 08:04; Start 12/10/18 at 15:00 Budesonide (Pulmicort) 0.5 mg RTBID NEB Last administered on 12/12/18 07:27; Start 12/10/18 at 20:00 Sotalol HCl (Betapace) 40 mg BID PO Last administered on 12/12/18 08:05; Start 12/10/18 at 21:00 Info (Anti-Coagulation Monitoring By Pharmacy) 1 each PRN DAILY PRN MC SEE COMMENTS; Start 12/10/18 at 14:15 Methylprednisolone Sodium Succinate (SOLU-Medrol 125MG VIAL) 80 mg 1X ONCE IV Last administered on 12/10/18 20:59; Start 12/10/18 at 21:00; Stop 12/10/18 at 21:01; Status DC Trazodone HCl (Desyrel) 100 mg QHS PO Last administered on 12/11/18 21:29; Start 12/10/18 at 21:00 Oxycodone HCl (Roxicodone) 20 mg PRN TID PRN PO PAIN Last administered on 08:06; Start 12/10/18 at 20:45 Polyethylene Glycol (miraLAX PACKET) 17 gm DAILY PO Last administered on 08:07; Start 12/10/18 at 20:45 Docusate Sodium (Colace) 100 mg DAILY PO Last administered on 12/12/18 08:02; Start 12/10/18 at 20:45 Ceftriaxone Sodium (Rocephin) 1 gm Q24H IVP Last administered on 12/12/18 08: 09; Start 12/11/18 at 07:00 Methylprednisolone Sodium Succinate (SOLU-Medrol 40MG VIAL) 40 mg Q8HRS IV Last administered on 12/12/18 06:03; Start 12/11/18 at 14:00; Stop 12/12/18 at 07:10; Status DC Guaifenesin (Robitussin) 200 mg PRN Q4HRS PRN PO COUGH; Start 12/11/18 at 10:30 Methylprednisolone Sodium Succinate (SOLU-Medrol 40MG VIAL) 40 mg Q12HR IV ; Start 12/12/18 at 09:00 Active Scripts Active Prednisone 20 Mg Tablet 40 Mg PO DAILY 5 Days Betapace (Sotalol Hcl) 80 Mg Tablet 40 Mg PO BID 30 Days Duoneb 0.5-3(2.5) Mg/3 Ml (Albuterol/Ipratropium) 3 Ml Ampul.neb 3 Ml NEB RTQID 30 Days Vitamin B-1 (Thiamine Mononitrate) 100 Mg Tablet 100 Mg PO DAILY 30 Days [Pantoprazole] 40 MG Tablet.dr 40 Mg PO DAILYAC 30 Days Proair Hfa Inhaler (Albuterol Sulfate) 8.5 Gm Hfa.aer.ad 1 Puff INH PRN Q6HRS PRN Reported Trazodone Hcl 100 Mg Tablet 100 Mg PO QHS Oxycodone Hcl 20 Mg Tablet 20 Mg PO TID PRN PRN Duoneb 0.5-3(2.5) Mg/3 Ml (Albuterol/Ipratropium) 3 Ml Ampul.neb 3 Ml NEB QIDPRN PRN Remeron (Mirtazapine) 15 Mg Tablet 1 Tab PO QHS Xarelto (Rivaroxaban) 15 Mg Tablet 20 Mg PO HS Simvastatin 20 Mg Tablet 1 Tab PO QHS Gabapentin (Gabapentin) 300 Mg Capsule 300 Mg PO PRN TID PRN can take 1 or 2 capsules Plavix (Clopidogrel Bisulfate) 75 Mg Tablet 75 Mg PO DAILY Digoxin 125 Mcg Tablet 125 Mcg PO DAILY Vitals/I & O Vital Sign - Last 24 Hours 12/11/18 12/11/18 12/11/18 12/11/18 15:00 15:30 17:42 19:00 Temp 97.8 98.1 97.8 98.1 Pulse 85 83 Resp 20 18 B/P (MAP) 109/61 (77) 138/75 (96) Pulse Ox 99 97 96 O2 Delivery Nasal Cannula Nasal Cannula Nasal Cannula Nasal Cannula O2 Flow Rate 2.0 1.0 1.0 2.0 12/11/18 12/11/18 12/11/18 12/11/18 19:41 20:30 21:30 23:35 Temp 98.1 98.1 Pulse 83 73 Resp 18 B/P (MAP) 138/75 141/80 (100) Pulse Ox 97 97 O2 Delivery Nasal Cannula Nasal Cannula Nasal Cannula O2 Flow Rate 1.0 1.0 2.0 12/12/18 12/12/18 12/12/18 12/12/18 03:50 07:28 07:38 08:03 Temp 98.2 98.1 98.2 98.1 Pulse 72 84 84 Resp 18 18 B/P (MAP) 136/80 (98) 130/79 (96) 143/85 Pulse Ox 97 97 96 O2 Delivery Nasal Cannula Nasal Cannula Nasal Cannula O2 Flow Rate 2.0 1.0 2.0 12/12/18 12/12/18 12/12/18 12/12/18 08:05 08:06 10:58 11:42 Temp 97.9 97.9 Pulse 83 75 Resp 18 B/P (MAP) 143/85 125/74 (91) Pulse Ox 96 97 O2 Delivery Nasal Cannula Nasal Cannula Nasal Cannula O2 Flow Rate 1.0 2.0 1.0 Intake and Output 12/11/18 12/11/18 12/12/18 15:00 23:00 07:00 Intake Total 1000 ml 100 ml 280 ml Output Total 100 ml Balance 1000 ml 0 ml 280 ml ULICES LOPEZ MD Dec 12, 2018 12:53
[2018-12-12 14:44] VITALS: BP 137/87
[2018-12-12] MEDS: RIVAROXABAN 10 MG TABLET. PO SCH (18:24)
[2018-12-12 19:44] VITALS: BP 120/70
[2018-12-12] MEDS: MIRTAZAPINE 15 MG TABLET PO SCH (20:42)
[2018-12-12] MEDS: traZODone 100 MG TABLET. PO SCH (20:42)
[2018-12-12] MEDS: SIMVASTATIN 20 MG TABLET PO SCH (20:42)
[2018-12-12] MEDS ORDERED: DOCUSATE SODIUM 100 MG CAPSULE. PO ONE (20:45)
[2018-12-12 23:50] VITALS: BP 145/86
[2018-12-13 03:00] VITALS: BP 122/71
[2018-12-13 07:00] VITALS: BP 122/73
[2018-12-13] MEDS: BUDESONIDE 0.5 MG/2 ML NEBU. NEB SCH ×2 (07:54→20:07)
[2018-12-13] MEDS: IPRATRPIUM/ALBUTEROL 0.5/2.5MG 3 ML NEBU. NEB SCH ×4 (07:55→20:07)
[2018-12-13] MEDS: PANTOPRAZOLE 40 MG TABLET.DR. PO SCH (08:38)
[2018-12-13] MEDS: POLYETHYLENE GLYCOL 3350 17 GM PACKET. PO SCH ×2 (08:38→21:36)
[2018-12-13] MEDS: DIGOXIN 125 MCG TABLET. PO SCH (08:38)
[2018-12-13] MEDS: SOTALOL 80 MG TABLET. PO SCH ×2 (08:39→21:37)
[2018-12-13] MEDS: CLOPIDOGREL BISULFATE 75 MG TABLET PO SCH (08:39)
[2018-12-13] MEDS: cefTRIAXone IV Push 1 GM VIAL. IVP SCH (08:40)
[2018-12-13] MEDS: THIAMINE 100 MG TABLET. PO SCH (08:40)
[2018-12-13] MEDS: methylPREDNISolone SOD SUCC PF 40 MG/ML VIAL. IV SCH ×2 (08:40→21:38)
[2018-12-13] MEDS: DOCUSATE SODIUM 100 MG CAPSULE. PO SCH (08:40)
--- NOTE | 2018-12-13 10:27 | PDOC ---
PULMONARY PROGRESS NOTES Subjective sob better, has cough, no cp Vitals Vital Signs Date Time Temp Pulse Resp B/P (MAP) Pulse Ox O2 Delivery O2 Flow Rate FiO2 12/13/18 08:39 83 122/73 12/13/18 07:55 96 Room Air 12/13/18 07:00 97.5 17 2.0 97.5 ROS: No Nausea General: Alert, No acute distress HEENT: Other (nc at perrl) Lungs: Crackles Cardiovascular: S1, S2 Abdomen: Soft, Non-tender Neuro Exam: Alert, Oriented Extremities: No Edema Skin: Warm Medications Active Scripts Medications Dose Route/Sig Max Daily Dose Days Date Category Dose Instructions Trazodone Hcl 100 Mg Tablet 100 Mg PO QHS 12/10/18 Reported Oxycodone Hcl 20 Mg Tablet 20 Mg PO TID PRN PRN 12/10/18 Reported Prednisone 20 Mg Tablet 40 Mg PO DAILY 5 11/05/18 Rx Betapace (Sotalol Hcl) 80 Mg Tablet 40 Mg PO BID 30 11/05/18 Rx Duoneb 0.5-3(2.5) Mg/3 Ml (Albuterol/Ipratropium) 3 Ml Ampul.neb 3 Ml NEB RTQID 30 11/05/18 Rx Vitamin B-1 (Thiamine Mononitrate) 100 Mg Tablet 100 Mg PO DAILY 30 08/23/18 Rx [Pantoprazole] 40 MG Tablet.dr 40 Mg PO DAILYAC 30 08/23/18 Rx Duoneb 0.5-3(2.5) Mg/3 Ml (Albuterol/Ipratropium) 3 Ml Ampul.neb 3 Ml NEB QIDPRN PRN 08/16/18 Reported Remeron (Mirtazapine) 15 Mg Tablet 1 Tab PO QHS 08/16/18 Reported Proair Hfa Inhaler (Albuterol Sulfate) 8.5 Gm Hfa.aer.ad 1 Puff INH PRN Q6HRS PRN 07/01/18 Rx Xarelto (Rivaroxaban) 15 Mg Tablet 20 Mg PO HS 03/26/15 Reported Simvastatin 20 Mg Tablet 1 Tab PO QHS 10/18/14 Reported Gabapentin (Gabapentin) 300 Mg Capsule 300 Mg PO PRN TID PRN 01/29/14 Reported can take 1 or 2 capsules Plavix (Clopidogrel Bisulfate) 75 Mg Tablet 75 Mg PO DAILY 01/29/14 Reported Digoxin 125 Mcg Tablet 125 Mcg PO DAILY 01/29/14 Reported Impression . IMPRESSION: 1. Acute respiratory failure secondary to acute exacerbation of chronic obstructive pulmonary disease, acute bronchitis 2. Acute exacerbation of chronic obstructive pulmonary disease. 3. Acute bronchitis. 4. Automatic implantable cardioverter defibrillator status post right ventricular lead replacement, lead fracture on 11/02/2018. 5. History of nonischemic cardiomyopathy. 6. Paroxysmal atrial fibrillation, on Xarelto. 7. Hyperlipidemia. 8. Status post abdominal aortic aneurysm and repair. 9. Ex-smoker. 10. Intermediate VQ, mostly matches defects. no DVT. less likely PE Plan . 1. Titrate FiO2 to keep O2 saturation 92%. He has been on oxygen at night at home. 2. Solu-Medrol 3. cont Rocephin. 4. I reviewed his lower extremity venous Doppler, chest x-ray and V/Q scan. He has been on Xarelto, I doubt he has pulmonary embolism. We will continue Xarelto for paroxysmal atrial fibrillation. he has severe allergy to contrast, so we can not do cta. 5. Protonix for stress ulcer prophylaxis. 6. He would require LABA and inhaled corticosteroids at home like Symbicort or Advair. 7. Six-minute walk at the time of discharge: 8. AICD per project manager senior. 9. Continue not smoking. michaela w VERONICA Smith MD Dec 13, 2018 10:27
[2018-12-13 10:41] VITALS: BP 126/64
--- NOTE | 2018-12-13 11:24 | NUR ---
SS following for discharge planning. SS reviewed pt chart and met with pt's RN. Pt is from home and currently requiring oxygen. PT recommended halfway unit on evaluation but pt has since declined PT. If pt continues to decline therapy discharge disposition will be home. Pt's RN notified.
[2018-12-13 14:55] VITALS: BP 123/67
[2018-12-13] MEDS: RIVAROXABAN 10 MG TABLET. PO SCH (16:58)
--- NOTE | 2018-12-13 18:52 | PDOC ---
PROGRESS NOTES Chief Complaint Chief Complaint Acute COPD exacerbation - has albuterol but no home routine maintenance inhaler. anitra Valencia, follow recommendations from field sales consultant CHF s/p AICD - per cardiology - recent RV lead replacement due to lead fracture 11/02/2018. Interrogation revealed no significant arrhythmias since lead repair. <0.1% AFIB burden. NYHA 1-2. Recovered EF at 50-55% AFIB - sinus on monitor. On sotalol and xarelto as well as digoxin. His EF is normalized now, digoxin level therapeutic, maybe he does not need it, will defer to cards HLD - cont statin S/p AAA, Iliac artery aneurysm repair. Stable. Chest pain - negative trop. EKG Sr without acute changes. recent stress testing with MPI last summer 2017 showed no reversible ischemia. PPX - Xarelto FULL CODE Inpatient for acute COPD exacerbation and chest pain evaluation which is ongoing. History of Present Illness History of Present Illness Patient sitting in chair in no apparent distress. His respiratory status seems to be improved compared to admission. Patient very adamant about making sure that he gets "checked out well and find out whats wrong" with him, reassurance provided. no fever or chills reported overnight no acute events reported overnight overall improved compared to admission plan of care explained in detail Vitals Vitals Vital Signs Date Time Temp Pulse Resp B/P (MAP) Pulse Ox O2 Delivery O2 Flow Rate FiO2 12/13/18 16:01 Room Air 12/13/18 14:55 98.3 89 18 123/67 (85) 95 2.0 98.3 Physical Exam General: Alert, Oriented X3, Cooperative, moderate distress Heart: Regular rate (SR), Normal S1, Normal S2, No murmurs Lungs: Crackles Abdomen: Normal bowel sounds, Soft, No tenderness, No hepatosplenomegaly, No masses Extremities: No clubbing, No cyanosis, No edema, Normal pulses, No tenderness/ swelling Skin: No rashes, No breakdown, No significant lesion Assessment and Plan Assessmemt and Plan Problems Medical Problems: (1) Chest pain Status: Acute Comment Review of Relevant I have reviewed the following items mckayla (where applicable) has been applied. Medications Current Medications Sodium Chloride 1,000 ml @ 250 mls/hr 1X ONCE IV Last administered on at 10:50; Start 12/10/18 at 12:45; Stop 12/10/18 at 16:44; Status DC Albuterol/ Ipratropium (Duoneb) 3 ml 1X ONCE NEB Last administered on 13:47; Start 12/10/18 at 13:45; Stop 12/10/18 at 13:46; Status DC Albuterol Sulfate (Ventolin Neb Soln) 2.5 mg PRN Q6HRS PRN INH SHORTNESS OF BREATH Last administered on 12/11/18 04:25; Start 12/10/18 at 14:00 Clopidogrel Bisulfate (Plavix) 75 mg DAILY PO Last administered on 12/13/18 08 :39; Start 12/10/18 at 15:00 Digoxin (Lanoxin) 125 mcg DAILY PO Last administered on 12/13/18 08:38; Start 12/10/18 at 15:00 Gabapentin (Neurontin) 300 mg PRN TID PRN PO PAIN Last administered on 14:02; Start 12/10/18 at 14:00 Albuterol/ Ipratropium (Duoneb) 3 ml QIDPRN PRN NEB SHORTNESS OF BREATH; Start 12/10/18 at 14:00; Status UNV Albuterol/ Ipratropium (Duoneb) 3 ml RTQID NEB Last administered on 12/13/18 16:00; Start 12/10/18 at 16:00 Rivaroxaban (Xarelto) 20 mg DAILYWSUP PO Last administered on 12/13/18 16:58; Start 12/10/18 at 17:00 Mirtazapine (Remeron) 15 mg QHS PO Last administered on 12/12/18 20:42; Start 12/10/18 at 21:00 Simvastatin (Zocor) 20 mg HS PO Last administered on 12/12/18 20:42; Start at 21:00 Thiamine Mononitrate (Vitamin B-1) 100 mg DAILY PO Last administered on 08:40; Start 12/10/18 at 15:00 Pantoprazole Sodium (Protonix) 40 mg DAILYAC PO Last administered on 12/13/18 08:38; Start 12/10/18 at 15:00 Budesonide (Pulmicort) 0.5 mg RTBID NEB Last administered on 12/13/18 07:54; Start 12/10/18 at 20:00 Sotalol HCl (Betapace) 40 mg BID PO Last administered on 12/13/18 08:39; Start 12/10/18 at 21:00 Info (Anti-Coagulation Monitoring By Pharmacy) 1 each PRN DAILY PRN MC SEE COMMENTS; Start 12/10/18 at 14:15 Methylprednisolone Sodium Succinate (SOLU-Medrol 125MG VIAL) 80 mg 1X ONCE IV Last administered on 12/10/18 20:59; Start 12/10/18 at 21:00; Stop 12/10/18 at 21:01; Status DC Trazodone HCl (Desyrel) 100 mg QHS PO Last administered on 12/12/18 20:42; Start 12/10/18 at 21:00 Oxycodone HCl (Roxicodone) 20 mg PRN TID PRN PO PAIN Last administered on 08:06; Start 12/10/18 at 20:45 Polyethylene Glycol (miraLAX PACKET) 17 gm DAILY PO Last administered on 08:07; Start 12/10/18 at 20:45; Stop 12/12/18 at 20:22; Status DC Docusate Sodium (Colace) 100 mg DAILY PO Last administered on 12/13/18 08:40; Start 12/10/18 at 20:45 Ceftriaxone Sodium (Rocephin) 1 gm Q24H IVP Last administered on 12/13/18 08: 40; Start 12/11/18 at 07:00 Methylprednisolone Sodium Succinate (SOLU-Medrol 40MG VIAL) 40 mg Q8HRS IV Last administered on 12/12/18 06:03; Start 12/11/18 at 14:00; Stop 12/12/18 at 07:10; Status DC Guaifenesin (Robitussin) 200 mg PRN Q4HRS PRN PO COUGH; Start 12/11/18 at 10:30 Methylprednisolone Sodium Succinate (SOLU-Medrol 40MG VIAL) 40 mg Q12HR IV Last administered on 12/13/18 08:40; Start 12/12/18 at 09:00 Polyethylene Glycol (miraLAX PACKET) 17 gm BID PO Last administered on 2/25/ 19at 08:38; Start 12/12/18 at 21:00 Docusate Sodium (Colace) 100 mg 1X ONCE PO Last administered on 12/12/18at 20: 42; Start 12/12/18 at 20:45; Stop 12/12/18 at 20:46; Status DC Active Scripts Active Prednisone 20 Mg Tablet 40 Mg PO DAILY 5 Days Betapace (Sotalol Hcl) 80 Mg Tablet 40 Mg PO BID 30 Days Duoneb 0.5-3(2.5) Mg/3 Ml (Albuterol/Ipratropium) 3 Ml Ampul.neb 3 Ml NEB RTQID 30 Days Vitamin B-1 (Thiamine Mononitrate) 100 Mg Tablet 100 Mg PO DAILY 30 Days [Pantoprazole] 40 MG Tablet.dr 40 Mg PO DAILYAC 30 Days Proair Hfa Inhaler (Albuterol Sulfate) 8.5 Gm Hfa.aer.ad 1 Puff INH PRN Q6HRS PRN Reported Trazodone Hcl 100 Mg Tablet 100 Mg PO QHS Oxycodone Hcl 20 Mg Tablet 20 Mg PO TID PRN PRN Duoneb 0.5-3(2.5) Mg/3 Ml (Albuterol/Ipratropium) 3 Ml Ampul.neb 3 Ml NEB QIDPRN PRN Remeron (Mirtazapine) 15 Mg Tablet 1 Tab PO QHS Xarelto (Rivaroxaban) 15 Mg Tablet 20 Mg PO HS Simvastatin 20 Mg Tablet 1 Tab PO QHS Gabapentin (Gabapentin) 300 Mg Capsule 300 Mg PO PRN TID PRN can take 1 or 2 capsules Plavix (Clopidogrel Bisulfate) 75 Mg Tablet 75 Mg PO DAILY Digoxin 125 Mcg Tablet 125 Mcg PO DAILY Vitals/I & O Vital Sign - Last 24 Hours 12/12/18 12/12/18 12/12/18 12/12/18 19:44 20:00 20:26 20:42 Temp 98.1 98.1 Pulse 87 87 Resp 18 B/P (MAP) 120/70 (87) 120/70 Pulse Ox 98 94 O2 Delivery Nasal Cannula Nasal Cannula Room Air O2 Flow Rate 2.0 1.0 12/12/18 12/13/18 12/13/18 12/13/18 23:50 03:00 07:00 07:55 Temp 97.7 97.9 97.5 97.7 97.9 97.5 Pulse 84 82 83 Resp 20 17 17 B/P (MAP) 145/86 (105) 122/71 (88) 122/73 (89) Pulse Ox 99 97 93 96 O2 Delivery Nasal Cannula Nasal Cannula Nasal Cannula Room Air O2 Flow Rate 2.0 2.0 2.0 12/13/18 12/13/18 12/13/18 12/13/18 08:38 08:39 10:41 11:42 Temp 97.9 97.9 Pulse 85 83 87 Resp 17 B/P (MAP) 122/73 126/64 (84) Pulse Ox 94 O2 Delivery Nasal Cannula Room Air O2 Flow Rate 2.0 12/13/18 12/13/18 14:55 16:01 Temp 98.3 98.3 Pulse 89 Resp 18 B/P (MAP) 123/67 (85) Pulse Ox 95 O2 Delivery Nasal Cannula Room Air O2 Flow Rate 2.0 Intake and Output 12/12/18 12/12/18 12/13/18 14:59 22:59 06:59 Intake Total 300 ml 200 ml Balance 300 ml 200 ml Nutrition Consultation Dietary Evaluation: Recommendations by RD: Protein supplementation Comments: Continue w/cardiac diet as ordered REC Ensure TID (chocolate or vanilla) Expected Outcomes/Goals: PO intake to meet >75% est needs Interpretation of weight loss: >10% in 6 months Malnutrition Findings: Weight Status: Appropriate ULICES LOPEZ MD Dec 13, 2018 18:52
[2018-12-13 19:15] VITALS: BP 123/66
[2018-12-13] MEDS: MIRTAZAPINE 15 MG TABLET PO SCH (21:36)
[2018-12-13] MEDS: traZODone 100 MG TABLET. PO SCH (21:36)
[2018-12-13] MEDS: SIMVASTATIN 20 MG TABLET PO SCH (21:36)
[2018-12-13 22:50] VITALS: BP 125/70
[2018-12-14 03:30] VITALS: BP 125/75
[2018-12-14] MEDS: cefTRIAXone IV Push 1 GM VIAL. IVP SCH (06:37)
[2018-12-14] MEDS: PANTOPRAZOLE 40 MG TABLET.DR. PO SCH (06:38)
[2018-12-14 07:00] VITALS: BP 139/92
[2018-12-14] MEDS: BUDESONIDE 0.5 MG/2 ML NEBU. NEB SCH (08:13)
[2018-12-14] MEDS: IPRATRPIUM/ALBUTEROL 0.5/2.5MG 3 ML NEBU. NEB SCH ×2 (08:13→12:14)
[2018-12-14] MEDS: SOTALOL 80 MG TABLET. PO SCH (08:24)
[2018-12-14] MEDS: THIAMINE 100 MG TABLET. PO SCH (08:24)
[2018-12-14] MEDS: DOCUSATE SODIUM 100 MG CAPSULE. PO SCH (08:24)
[2018-12-14] MEDS: CLOPIDOGREL BISULFATE 75 MG TABLET PO SCH (08:24)
[2018-12-14] MEDS: methylPREDNISolone SOD SUCC PF 40 MG/ML VIAL. IV SCH (08:25)
[2018-12-14] MEDS: POLYETHYLENE GLYCOL 3350 17 GM PACKET. PO SCH (08:25)
[2018-12-14] MEDS: DIGOXIN 125 MCG TABLET. PO SCH (08:25)
--- NOTE | 2018-12-14 09:07 | PDOC ---
PULMONARY PROGRESS NOTES Subjective sob better, has cough, no cp Vitals Vital Signs Date Time Temp Pulse Resp B/P (MAP) Pulse Ox O2 Delivery O2 Flow Rate FiO2 12/14/18 08:25 75 139/92 12/14/18 08:13 96 Room Air 12/14/18 07:45 2.0 12/14/18 07:00 97.2 18 97.2 ROS: No Nausea General: Alert, No acute distress HEENT: Other (nc at perrl) Lungs: Crackles Cardiovascular: S1, S2 Abdomen: Soft, Non-tender Neuro Exam: Alert, Oriented Extremities: No Edema Skin: Warm Medications Active Scripts Medications Dose Route/Sig Max Daily Dose Days Date Category Dose Instructions Trazodone Hcl 100 Mg Tablet 100 Mg PO QHS 12/10/18 Reported Oxycodone Hcl 20 Mg Tablet 20 Mg PO TID PRN PRN 12/10/18 Reported Prednisone 20 Mg Tablet 40 Mg PO DAILY 5 11/05/18 Rx Betapace (Sotalol Hcl) 80 Mg Tablet 40 Mg PO BID 30 11/05/18 Rx Duoneb 0.5-3(2.5) Mg/3 Ml (Albuterol/Ipratropium) 3 Ml Ampul.neb 3 Ml NEB RTQID 30 11/05/18 Rx Vitamin B-1 (Thiamine Mononitrate) 100 Mg Tablet 100 Mg PO DAILY 30 08/23/18 Rx [Pantoprazole] 40 MG Tablet.dr 40 Mg PO DAILYAC 30 08/23/18 Rx Duoneb 0.5-3(2.5) Mg/3 Ml (Albuterol/Ipratropium) 3 Ml Ampul.neb 3 Ml NEB QIDPRN PRN 08/16/18 Reported Remeron (Mirtazapine) 15 Mg Tablet 1 Tab PO QHS 08/16/18 Reported Proair Hfa Inhaler (Albuterol Sulfate) 8.5 Gm Hfa.aer.ad 1 Puff INH PRN Q6HRS PRN 07/01/18 Rx Xarelto (Rivaroxaban) 15 Mg Tablet 20 Mg PO HS 03/26/15 Reported Simvastatin 20 Mg Tablet 1 Tab PO QHS 10/18/14 Reported Gabapentin (Gabapentin) 300 Mg Capsule 300 Mg PO PRN TID PRN 01/29/14 Reported can take 1 or 2 capsules Plavix (Clopidogrel Bisulfate) 75 Mg Tablet 75 Mg PO DAILY 01/29/14 Reported Digoxin 125 Mcg Tablet 125 Mcg PO DAILY 01/29/14 Reported Impression . IMPRESSION: 1. Acute respiratory failure secondary to acute exacerbation of chronic obstructive pulmonary disease, acute bronchitis 2. Acute exacerbation of chronic obstructive pulmonary disease. 3. Acute bronchitis. 4. Automatic implantable cardioverter defibrillator status post right ventricular lead replacement, lead fracture on 11/02/2018. 5. History of nonischemic cardiomyopathy. 6. Paroxysmal atrial fibrillation, on Xarelto. 7. Hyperlipidemia. 8. Status post abdominal aortic aneurysm and repair. 9. Ex-smoker. 10. Intermediate VQ, mostly matches defects. no DVT. less likely PE Plan . 1. Titrate FiO2 to keep O2 saturation 92%. He has been on oxygen at night at home. 2. Solu-Medrol 3. cont Rocephin. 4. I reviewed his lower extremity venous Doppler, chest x-ray and V/Q scan. He has been on Xarelto, I doubt he has pulmonary embolism. We will continue Xarelto for paroxysmal atrial fibrillation. he has severe allergy to contrast, so we can not do cta. 5. Protonix for stress ulcer prophylaxis. 6. He would require LABA and inhaled corticosteroids at home like Symbicort or Advair. 7. Six-minute walk at the time of discharge: 8. AICD per quarter lining smoother. 9. Continue not smoking. discussed w CHAD Acuña MD Dec 14, 2018 09:07
[2018-12-14 11:00] VITALS: BP 126/82
[2018-12-14] MEDS ORDERED: DOXY100T PO (12:04)
--- NOTE | 2018-12-14 21:33 | PDOC3 ---
Discharge Summary Visit Information Date of Admission: Dec 10, 2018 Date of Discharge: Dec 14, 2018 Final Diagnosis Acute COPD exacerbation - resolved CHF s/p AICD - per cardiology - recent RV lead replacement due to lead fracture 11/02/2018. Interrogation revealed no significant arrhythmias since lead repair. <0.1% AFIB burden. NYHA 1-2. Recovered EF at 50-55% AFIB - sinus on monitor. On sotalol and xarelto as well as digoxin. His EF is normalized now, digoxin level therapeutic, no changes as per acquisition consultant HLD - cont statin S/p AAA, Iliac artery aneurysm repair. Stable. Chest pain - negative trop. EKG Sr without acute changes. recent stress testing with MPI last summer 2017 showed no reversible ischemia. No further intervention from the cardiac stand point of view. Brief Hospital Course Allergies Allergies Coded Allergies Type Severity Reaction Last Updated Verified Iodinated Contrast- Oral and IV Dye Allergy Severe anaphalaxis, short of air Yes adhesive Allergy Severe PAINFUL SKIN IRRITATION 06/06/15 Yes latex Allergy Intermediate Hives 06/06/15 Yes Vital Signs Vital Signs Date Time Temp Pulse Resp B/P (MAP) Pulse Ox O2 Delivery O2 Flow Rate FiO2 12/14/18 12:14 Room Air 12/14/18 11:00 98.0 86 18 126/82 (97) 97 98.0 12/14/18 07:45 2.0 Brief Hospital Course 78 yo M w/ PMHx COPD, CHF s/p AICD, AFIB, HLD, s/p AAA, Iliac artery aneurysm repair p/w shortness of breath with exertion worsening over the last couple weeks as well as a shocking sensation just near his left sided chest near his AICD said he felt like an electric shock a few times last night no fainting he had some pain in that area but that has resolved. In ED he had a mildly elevated troponin and had a very elevated BP 200/107 and RR of 22, initially suspected of having PE, however he is anticoagulated, though notably did not take any meds today. He is feeling generally weak and is feeling short of breath with exertion and having a pleuritic component to his pain and he c/o not being able to get his breath, very wheezy. Patient seen by neurology and cardiology. The patient did not percent any cardiological events during this hospital stay. He had lower extremity venous Doppler secondary to some swelling over his lower extremities which were very concerning to the patient. This were negative and also he had also chest x-rays and VQ scan stone and he continues to be on Xarelto Due to his renal dysfunction patient was not able to have a CTA patient was much improved date of discharge and in good spirits to be dismissed home. He was encouraged to continue with pursuing pursuing his diet noted to have a history. Patient is in good spirits to be dismissed home and he will follow up with the consultants in the outpatient setting. ] Discharge Information Condition at Discharge: Improved Follow Up: Weeks Disposition/Orders: D/C to Home Scheduled Clopidogrel Bisulfate (Plavix) 75 Mg Tablet, 75 MG PO DAILY, (Reported) Entered as Reported by: ANNE RIVERA on 01/29/14 1502 Last Action: Continued on 12/10/181356 by GEORGE COOPER MD Digoxin (Digoxin) 125 Mcg Tablet, 125 MCG PO DAILY, (Reported) Entered as Reported by: ANNE RIVERA on 01/29/14 1502 Last Action: Continued on 12/10/181356 by GEORGE COOPER MD Doxycycline Hyclate (Doxycycline Hyclate) 100 Mg Tablet, 1 TAB PO BID for Bronchitis for 3 Days, #6 Prescribed by: ULICES LOPEZ MD on 12/14/18 1204 Ipratropium/Albuterol Sulfate (Duoneb 0.5-3(2.5) Mg/3 Ml) 3 Ml Ampul.neb, 3 ML NEB RTQID for copd for 30 Days, #120 Prescribed by: YUMIKO WILKINSON MD on 11/05/18 1359 Last Action: Continued on 12/10/181356 by GEORGE COOPER MD Mirtazapine (Remeron) 15 Mg Tablet, 1 TAB PO QHS, #30 (Reported) Entered as Reported by: KELLY STERLING on 08/16/18 0653 Last Action: Converted on 12/10/181356 by GEORGE COOPER MD Rivaroxaban (Xarelto) 15 Mg Tablet, 20 MG PO HS, (Reported) Entered as Reported by: CLARISSA CROWDER on 03/26/15 0956 Last Action: Continued on 12/10/181356 by GEORGE COOPER MD Simvastatin (Simvastatin) 20 Mg Tablet, 1 TAB PO QHS, (Reported) Entered as Reported by: TEJAS CHANELL on 10/18/14 0958 Last Action: Converted on 12/10/181356 by GEORGE COOPER MD Sotalol Hcl (Betapace) 80 Mg Tablet, 40 MG PO BID for afib for 30 Days, #30 Prescribed by: YUMIKO WILKINSON MD on 11/05/181358 Last Action: Converted on 12/10/181356 by GEORGE COOPER MD Thiamine Mononitrate (Vitamin B-1) 100 Mg Tablet, 100 MG PO DAILY for alcoholism for 30 Days, #30 Prescribed by: RENE MOON on 08/23/18857 Last Action: Converted on 12/10/181356 by GEORGE COOPER MD Trazodone Hcl (Trazodone Hcl) 100 Mg Tablet, 100 MG PO QHS for sleep, (Reported) Entered as Reported by: SYLVIE COOPER RN on 12/10/182038 Last Action: Continued on 12/10/182040 by SYLVIE COOPER RN [Pantoprazole] 40 MG TABLET.DR, 40 MG PO DAILYAC for 30 Days, #30 Ref 1 Prescribed by: RENE MOON on 08/23/18857 Last Action: Converted on 12/10/181356 by GEORGE COOPER MD Scheduled PRN Albuterol Sulfate (Proair Hfa Inhaler) 8.5 Gm Hfa.aer.ad, 1 PUFF INH PRN Q6HRS PRN for SHORTNESS OF BREATH, #1 Ref 0 Prescribed by: JULISSA BARRAZA MD on 07/01/18 0250 Last Action: Continued on 12/10/181356 by GEORGE COOPER MD Gabapentin (Gabapentin ) 300 Mg Capsule, 300 MG PO PRN TID PRN for PAIN, ( Reported) can take 1 or 2 capsules Entered as Reported by: ANNE RIVERA on 01/29/14 1502 Last Action: Continued on 12/10/181356 by GEORGE COOPER MD Ipratropium/Albuterol Sulfate (Duoneb 0.5-3(2.5) Mg/3 Ml) 3 Ml Ampul.neb, 3 ML NEB QIDPRN PRN for SHORTNESS OF BREATH, (Reported) Entered as Reported by: KELLY STERLING on 08/16/18 0806 Last Action: Continued on 12/10/181356 by GEORGE COOPER MD Oxycodone Hcl (Oxycodone Hcl) 20 Mg Tablet, 20 MG PO TID PRN PRN for PAIN, ( Reported) Entered as Reported by: SYLVIE COOPER RN on 12/10/182038 Last Action: Converted on 12/10/182040 by SYLVIE COOPER RN Discontinued Medications Prednisone (Prednisone) 20 Mg Tablet, 40 MG PO DAILY for copd for 5 Days, #10 Prescribed by: YUMIKO WILKINSON MD on 11/05/18 1407 Last Action: HELD on 12/10/182039 by JUDE GOYAL HECTOR M MD Dec 14, 2018 21:33
[2019-03-04] MEDS ORDERED: RIVA15TA PO (17:06)
== END 2018-12-14 13:49 | disposition home or self-care (01) | DRG 189 ==
LOC: ER 09:50 → 2 SOUTH 12:18 → OBSVTOIN 13:58
PROVIDERS: ADMIT Internal Medicine; ATTEND Internal Medicine
PROC: 4B02XTZ Measurement of Cardiac Defibrillator, External Approach (ICD-10-PCS; principal; 2018-12-10)
DX: J96.00 Acute respiratory failure, unspecified whether with hypoxia or hypercapnia (principal); J44.1 Chronic obstructive pulmonary disease with (acute) exacerbation; I42.8 Other cardiomyopathies; J44.0 Chronic obstructive pulmonary disease with (acute) lower respiratory infection; R07.89 Other chest pain; E78.5 Hyperlipidemia, unspecified; I25.10 Atherosclerotic heart disease of native coronary artery without angina pectoris; G62.9 Polyneuropathy, unspecified; I50.9 Heart failure, unspecified; I11.0 Hypertensive heart disease with heart failure; J20.9 Acute bronchitis, unspecified; I48.0 Paroxysmal atrial fibrillation; K21.9 Gastro-esophageal reflux disease without esophagitis; N28.9 Disorder of kidney and ureter, unspecified; K59.00 Constipation, unspecified; R26.2 Difficulty in walking, not elsewhere classified; Z86.79 Personal history of other diseases of the circulatory system; Z95.810 Presence of automatic (implantable) cardiac defibrillator; Z91.041 Radiographic dye allergy status; Z91.040 Latex allergy status; Z91.09 Other allergy status, other than to drugs and biological substances; I25.2 Old myocardial infarction; Z86.73 Personal history of transient ischemic attack (TIA), and cerebral infarction without residual deficits; Z87.891 Personal history of nicotine dependence; Z95.1 Presence of aortocoronary bypass graft; Z99.3 Dependence on wheelchair; Z79.01 Long term (current) use of anticoagulants; Z74.01 Bed confinement status
CPT/HCPCS: 36415; 71045; 78582; 80048; 80053; 80162; 83735; 83880; 84484; 85007; 85025; 85610; 93005; 93970; 94618; 94640; 94760; 96361; 96374; A9540; A9558; G0378; G0379; J0696; J2920; J2930; J7030; J7613; J7620; J7626; 99285-25

== ENCOUNTER → 2019-01-10 | Outpatient (CLI) | payer BC, MEDICARE ==
[2018-12-14 11:00] VITALS: BP 126/82
[~2019-01-10] MED LIST changes: +AMIO200T4 PO; +DOXY100T PO; +FLUD0.1T PO; +FLUT1DIS3 IH; +IRON150C11 PO; +LACT1CAP19 PO; +LUBI8CAP4 PO; +MIDO2.5T PO; +MONT10TA9 PO; +OXYC20TA PO; +PRED-220 PO; +TRAZ-86 PO
--- NOTE | 2019-01-10 12:11 | RAD ---
Chest radiograph 01/10/2019 12:00 AM INDICATION: Shortness of air and dizziness with walking COMPARISON: December 10, 2018 TECHNIQUE: Frontal and lateral views of the chest are provided. FINDINGS: The cardiomediastinal silhouette is within normal limits. There are no pleural effusions. There is no pulmonary vascular congestion. There is no pneumothorax. The lungs are clear. Pulmonary emphysematous changes are present. Left chest wall cardiac device is in similar position. No significant osseous abnormality is identified. IMPRESSION: COPD without acute cardiopulmonary process. Electronically signed by: Marla Huertas MD (01/10/2019 12:08 PM) [facility] [place]
== END | disposition home or self-care (01) ==
LOC: RAD 11:21
PROVIDERS: ATTEND Internal Medicine Critical Care Medicine
DX: J43.9 Emphysema, unspecified (principal)
CPT/HCPCS: 71046

== ENCOUNTER 2019-01-24 11:30 | Inpatient (IN) | payer MEDICARE, BC ==
[~2019-01-24] VITALS: Ht 185.4 cm; Wt 78.6 kg
[~2019-01-24 11:30] MED LIST changes: -AMIO200T4 PO; -FLUD0.1T PO; -FLUT1DIS3 IH; -IRON150C11 PO; -LACT1CAP19 PO; -LUBI8CAP4 PO; -MIDO2.5T PO; -MONT10TA9 PO; -PRED-220 PO
[2019-01-24] MEDS ORDERED: MECLIZINE HCL 12.5 MG TABLET. PO ONE (12:15)
--- NOTE | 2019-01-24 12:15 | PHYS DOC ---
Past Medical History Past Medical History: COPD, TIA Additional Past Medical Histor: BACK PAIN Past Surgical History: Lumbar Laminectomy, Pacemaker, Other Additional Past Surgical Histo: esophagus; hernia; Alcohol Use: Rarely Drug Use: None Adult General Chief Complaint Chief Complaint: DIZZY/LIGHT HEADED HPI HPI Patient is a 78 year old male who presents with complaining of dizziness. Patient complaining of chronic constant dizziness for the last 6 months that getting worse with movement and standing up and opening his eyes. Patient complaining of nausea without vomiting, focal neuro deficit, chest pain, shortness of breath, fever and chills, urinary symptoms, head injury. Patient states he was admitted in this hospital and discharged home 3 weeks ago without improvement of his dizziness. Patient states he has his care at [facility] but currently does not a primary care physician. Review of Systems Review of Systems Constitutional: Denies fever or chills [] Eyes: Denies change in visual acuity, redness, or eye pain [] HENT: Denies nasal congestion or sore throat [] Respiratory: Denies cough or shortness of breath [] Cardiovascular: No additional information not addressed in HPI [] GI: Denies abdominal pain, nausea, vomiting, bloody stools or diarrhea [] : Denies dysuria or hematuria [] Musculoskeletal: Denies back pain or joint pain [] Integument: Denies rash or skin lesions [] Neurologic: Denies headache, focal weakness or sensory changes , reports dizziness.[] Endocrine: Denies polyuria or polydipsia [] All other systems were reviewed and found to be within normal limits, except as documented in this note. Current Medications Current Medications Current Medications Medications (Trade) Dose Ordered Sig/[place] Start Time Stop Time Status Last Admin Dose Admin Meclizine HCl (Antivert) 25 mg 1X ONCE 01/24/19 12:15 01/24/19 12:16 DC 01/24/19 13:00 25 MG Allergies Allergies Allergies Coded Allergies Type Severity Reaction Last Updated Verified Iodinated Contrast- Oral and IV Dye Allergy Severe anaphalaxis, short of air Yes adhesive Allergy Severe PAINFUL SKIN IRRITATION 06/06/15 Yes latex Allergy Intermediate Hives 06/06/15 Yes Physical Exam Physical Exam Constitutional: Well developed, well nourished, no acute distress, non-toxic appearance. [] HENT: Normocephalic, atraumatic, bilateral external ears normal, oropharynx moist, no oral exudates, nose normal. [] Eyes: PERRLA, EOMI, conjunctiva normal, no discharge. [] Neck: Normal range of motion, no tenderness, supple, no stridor. [] Cardiovascular: Irregularly irregular rhythm, no murmur [] Lungs & Thorax: Bilateral breath sounds clear to auscultation [] Abdomen: Bowel sounds normal, soft, no tenderness, no masses, no pulsatile masses. [] Skin: Warm, dry, no erythema, no rash. [] Back: No tenderness, no CVA tenderness. [] Extremities: No tenderness, no cyanosis, no clubbing, ROM intact, no edema. [] Neurologic: Alert and oriented X 3, normal motor function, normal sensory function, no focal deficits noted. [] Psychologic: Affect anxious, judgement normal, mood normal. [] Current Patient Data Vital Signs Vital Signs Date Time Temp Pulse Resp B/P (MAP) Pulse Ox O2 Delivery O2 Flow Rate FiO2 01/24/19 13:03 88 20 96 01/24/19 11:37 97.5 139/84 (102) Room Air 97.5 Lab Values Laboratory Tests Test 01/24/19 12:42 White Blood Count 6.9 x10^3/uL (4.0-11.0) Red Blood Count 5.08 x10^6/uL (4.30-5.70) Hemoglobin 10.4 g/dL (13.0-17.5) L Hematocrit 34.4 % (39.0-53.0) L Mean Corpuscular Volume 68 fL (79-100) L Mean Corpuscular Hemoglobin 21 pg (25-35) L Mean Corpuscular Hemoglobin Concent 30 g/dL (31-37) L Red Cell Distribution Width 23.5 % (11.5-14.5) H Platelet Count 323 x10^3/uL (140-400) Neutrophils (%) (Auto) 54 % (31-73) Lymphocytes (%) (Auto) 27 % (24-48) Monocytes (%) (Auto) 10 % (0-9) H Eosinophils (%) (Auto) 7 % (0-3) H Basophils (%) (Auto) 1 % (0-3) Neutrophils # (Auto) 3.7 x10^3uL (1.8-7.7) Lymphocytes # (Auto) 1.9 x10^3/uL (1.0-4.8) Monocytes # (Auto) 0.7 x10^3/uL (0.0-1.1) Eosinophils # (Auto) 0.5 x10^3/uL (0.0-0.7) Basophils # (Auto) 0.1 x10^3/uL (0.0-0.2) Platelet Estimate Pending Prothrombin Time 24.1 SEC (11.7-14.0) H Prothrombin Time INR 2.2 (0.8-1.1) H Sodium Level 142 mmol/L (136-145) Potassium Level 4.0 mmol/L (3.5-5.1) Chloride Level 104 mmol/L (98-107) Carbon Dioxide Level 28 mmol/L (21-32) Anion Gap 10 (6-14) Blood Urea Nitrogen 14 mg/dL (8-26) Creatinine 1.1 mg/dL (0.7-1.3) Estimated GFR (Cockcroft-Gault) 78.7 BUN/Creatinine Ratio 13 (6-20) Glucose Level 96 mg/dL (70-99) Calcium Level 9.0 mg/dL (8.5-10.1) Magnesium Level 2.1 mg/dL (1.8-2.4) Total Bilirubin 0.7 mg/dL (0.2-1.0) Aspartate Amino Transferase (AST) 16 U/L (15-37) Alanine Aminotransferase (ALT) 12 U/L (16-63) L Alkaline Phosphatase 91 U/L (46-116) Creatine Kinase 50 U/L (39-308) Troponin I Quantitative < 0.017 ng/mL (0.000-0.055) TO-Tyg-G-Type Natriuretic Peptide 233 pg/mL (0-449) Total Protein 7.3 g/dL (6.4-8.2) Albumin 3.3 g/dL (3.4-5.0) L Albumin/Globulin Ratio 0.8 (1.0-1.7) L Laboratory Tests 01/24/19 12:42 Laboratory Tests 01/24/19 12:42 EKG EKG EKG interpreted by me. EKG at 1141 showed insufflation at rate of 97, PVCs, no acute ST-T wave abnormalities. Radiology/Procedures Radiology/Procedures [address] [id number] IMAGING REPORT Signed PATIENT: GENIA MCKENZIE ACCOUNT: [id number] : 1940 LOCATION: ER AGE: 78 SEX: M EXAM STATUS: REG ER ORD. PHYSICIAN: JASON URENA MD REASON: Dizziness PROCEDURE: CHEST PA & LATERAL Chest, PA and Lateral: Technique: PA and lateral views of the chest were obtained. History: Dizziness. Comparison: 01/10/2019. Findings: The heart and pulmonary vasculature appear within normal limits. Hyperinflated lungs likely changes of COPD.. The pleural margins are clear. Left-sided cardiac pacer AICD is identified. Moderate degenerative changes thoracic spine. Impression: 1. No acute chest process is seen. 2. Hyperinflated lungs likely changes of COPD. Electronically signed by: Elder Draper MD (01/24/2019 12:32 PM) [facility] DICTATED and SIGNED BY: ELDER DRAPER MD DATE: 01/24/[address] [id number] IMAGING REPORT Signed PATIENT: GENIA MCKENZIE ACCOUNT: [id number] : 1940 LOCATION: ER AGE: 78 SEX: M EXAM STATUS: REG ER ORD. PHYSICIAN: JASON URENA MD REASON: dizziness PROCEDURE: CT HEAD WO CONTRAST CT HEAD WO CONTRAST History: Dizziness for the last month, history of high blood pressure Comparison: 08/18/2018 Technique: Noncontrast CT imaging was performed of the head. Exposure: One or more of the following individualized dose reduction techniques were utilized for this examination: 1. Automated exposure control 2. Adjustment of the mA and/or kV according to patient size 3. Use of iterative reconstruction technique. Findings: No acute intracranial hemorrhage is identified. There is again encephalomalacia with cortical involvement of the left frontal lobe. There is mild generalized supratentorial involutional change, ventricular size stable, within normal limits. There is mild ill-defined low-density with cortical involvement of the right frontal lobe also likely due to small old infarct, unchanged. There is no new intra-axial mass effect, midline shift, extra-axial fluid collection. There is atherosclerotic calcification bilateral carotid siphons and right intradural vertebral artery. Visualized paranasal sinuses are mostly aerated, mild sphenoid sinus mucosal thickening and probable tiny left maxillary sinus mucous retention cyst. Mastoid air cells are aerated. There is some density in the left external auditory canal, more likely due to cerumen. Impression: 1. No acute intracranial abnormality is identified by CT. 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 Electronically signed by: Nancy Mtz MD (01/24/2019 12:26 PM) [facility] DICTATED and SIGNED BY: NANCY MTZ MD DATE: 01/24/19 1226 Course & Med Decision Making Course & Med Decision Making Pertinent Labs and Imaging studies reviewed. (See chart for details) Evaluation of patient in ER showed 78-year-old male patient with chronic dizziness that didn't get better with treatment given to his recent hospitalization. Patient had atrial fibrillation patient as a chronic problem with mild anemia with unremarkable labs and CT head. Plan to admit patient for evaluation of dizziness. Dragon Disclaimer Dragon Disclaimer This electronic medical record was generated, in whole or in part, using a voice recognition dictation system. Departure Departure Impression: Primary Impression: Dizziness Additional Impressions: Atrial fibrillation Anemia Disposition: 09 ADMITTED INPATIENT (at 1336) Admitting Physician: Alin Ramirez (accepted admission at 1336) Condition: IMPROVED Referrals: Hazel MEADOWS MD (PCP) Problem Qualifiers Additional Impressions: Atrial fibrillation Atrial fibrillation type: chronic Qualified Codes: I48.2 - Chronic atrial fibrillation Anemia Anemia type: unspecified type Qualified Codes: D64.9 - Anemia, unspecified JASON URENA MD Jan 24, 2019 12:15
--- NOTE | 2019-01-24 12:16 | EKG ---
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
--- NOTE | 2019-01-24 12:29 | RAD ---
CT HEAD WO CONTRAST History: Dizziness for the last month, history of high blood pressure Comparison: 08/18/2018 Technique: Noncontrast CT imaging was performed of the head. Exposure: One or more of the following individualized dose reduction techniques were utilized for this examination: 1. Automated exposure control 2. Adjustment of the mA and/or kV according to patient size 3. Use of iterative reconstruction technique. Findings: No acute intracranial hemorrhage is identified. There is again encephalomalacia with cortical involvement of the left frontal lobe. There is mild generalized supratentorial involutional change, ventricular size stable, within normal limits. There is mild ill-defined low-density with cortical involvement of the right frontal lobe also likely due to small old infarct, unchanged. There is no new intra-axial mass effect, midline shift, extra-axial fluid collection. There is atherosclerotic calcification bilateral carotid siphons and right intradural vertebral artery. Visualized paranasal sinuses are mostly aerated, mild sphenoid sinus mucosal thickening and probable tiny left maxillary sinus mucous retention cyst. Mastoid air cells are aerated. There is some density in the left external auditory canal, more likely due to cerumen. Impression: 1. No acute intracranial abnormality is identified by CT. 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 Electronically signed by: Colt Mtz MD (01/24/2019 12:26 PM) [place] [id number]
--- NOTE | 2019-01-24 12:35 | RAD ---
Chest, PA and Lateral: Technique: PA and lateral views of the chest were obtained. History: Dizziness. Comparison: 01/10/2019. Findings: The heart and pulmonary vasculature appear within normal limits. Hyperinflated lungs likely changes of COPD.. The pleural margins are clear. Left-sided cardiac pacer AICD is identified. Moderate degenerative changes thoracic spine. Impression: 1. No acute chest process is seen. 2. Hyperinflated lungs likely changes of COPD. Electronically signed by: Elder Draper MD (01/24/2019 12:32 PM) [facility]
[2019-01-24 12:59] LABS: BASO # 0.1 x10^3/uL (0.0-0.2); BASO % 1 % (0-3); EOS # 0.5 x10^3/uL (0.0-0.7); EOS % 7 % (0-3); HEMATOCRIT 34.4 % (39.0-53.0); HEMOGLOBIN 10.4 g/dL (13.0-17.5); LYMPH # 1.9 x10^3/uL (1.0-4.8); LYMPH % 27 % (24-48); MEAN CORPUSCULAR HEMOGLOBIN 21 pg (25-35); MEAN CORPUSCULAR HGB CONC 30 g/dL (31-37); MEAN CORPUSCULAR VOLUME 68 fL (79-100); MONO # 0.7 x10^3/uL (0.0-1.1); MONO % 10 % (0-9); NEUT # 3.7 x10^3uL (1.8-7.7); NEUT % 54 % (31-73); PLATELET COUNT 323 x10^3/uL (140-400); RED BLOOD COUNT 5.08 x10^6/uL (4.30-5.70); RED CELL DISTRIBUTION WIDTH 23.5 % (11.5-14.5); WHITE BLOOD COUNT 6.9 x10^3/uL (4.0-11.0)
[2019-01-24 13:04] LABS: PROTHROMBIN TIME PATIENT 24.1 SEC (11.7-14.0)
[2019-01-24 13:15] LABS: CREATININE 1.1 mg/dL (0.7-1.3); GFR 78.7
[2019-01-24 13:21] LABS: ALBUMIN 3.3 g/dL (3.4-5.0); ALBUMIN/GLOBULIN RATIO 0.8 (1.0-1.7); MAGNESIUM 2.1 mg/dL (1.8-2.4); TOTAL BILIRUBIN 0.7 mg/dL (0.2-1.0); TOTAL PROTEIN 7.3 g/dL (6.4-8.2)
[2019-01-24 14:16] LABS: HYPOCHROMIA MARKED; PLT ESTIMATE ADEQUATE (ADEQUATE)
[2019-01-24 14:17] LABS: ANISOCYTOSIS MOD; POIKILOCYTOSIS SLIGHT
[2019-01-24 14:18] LABS: BURR CELLS OCC; MICROCYTOSIS MARKED; SCHISTOCYTES OCC
[2019-01-24 16:14] VITALS: BP 127/93
[2019-01-24] MEDS ORDERED: C.DIFF MED SCREEN BY RX. MC ONE (17:45)
[2019-01-24] MEDS ORDERED: IPRATRPIUM/ALBUTEROL 0.5/2.5MG 3 ML NEBU. NEB PRN (18:00)
[2019-01-24] MEDS: CLOPIDOGREL BISULFATE 75 MG TABLET PO SCH (18:30)
[2019-01-24 18:39] LABS: BILIRUBIN,URINE SMALL (NEG); CLARITY,URINE CLEAR; COLOR,URINE YELLOW; NITRITE,URINE NEGATIVE (NEG); PROTEIN,URINE NEGATIVE (NEG-TRACE); UROBILINOGEN,URINE 0.2 mg/dL (0.2 mg/dL)
--- NOTE | 2019-01-24 18:39 | HP ---
ADMIT DATE: 01/24/2019 CHIEF COMPLAINT: Dizziness. HISTORY OF PRESENT ILLNESS: The patient is a pleasant 78-year-old male who presented with dizziness. It has been acute on chronic changes. It has been worsening for the past 6 months. 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 His main complaints today is that he is dizzy. It worse with standing, better with sitting still. He was admitted to the hospital 3 weeks ago for the same complaints. That workup was negative. I discussed the case with the ER physician. We are going to admit the patient and consult Neurology. PAST MEDICAL HISTORY: COPD, TIA, back surgery, lumbar laminectomy, pacemaker, esophagitis, hernia repair, Jhaveri's palsy. ALLERGIES: ADHESIVE AND LATEX. FAMILY HISTORY: Coronary disease. 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 He does not drink, smoke or take drugs. MEDICATIONS: Reviewed. He is on 15 including doxycycline, DuoNeb, ProAir, Xarelto, Plavix, digoxin, simvastatin, Betapace, oxycodone, gabapentin, Remeron, trazodone, Protonix and vitamins. REVIEW OF SYSTEMS: GENERAL: No history of weight change, weakness or fevers. SKIN: No bruising, hair changes or rashes. EYES: No blurred, double or loss of vision. NOSE AND THROAT: No history of nosebleeds, hoarseness or sore throat. HEART: No history of palpitations, chest pain or shortness of breath on exertion. LUNGS: Denies cough, hemoptysis, wheezing or shortness of breath. GASTROINTESTINAL: Denies changes in appetite, nausea, vomiting, diarrhea or constipation. GENITOURINARY: No history of frequency, urgency, hesitancy or nocturia. NEUROLOGIC: He complains of dizziness. PSYCHIATRIC: No history of panic, anxiety or depression. ENDOCRINE: No history of heat or cold intolerance, polyuria or polydipsia. EXTREMITIES: Denies muscle weakness, joint pain, pain on walking or stiffness. PHYSICAL EXAMINATION: VITAL SIGNS: Temperature 97, pulse 85, respirations 20, blood pressure is currently 127/93, O2 sat 94% on 2 liters. GENERAL: He is alert, cooperative. HEART: Normal S1, S2. LUNGS: Clear. ABDOMEN: Soft, positive bowel sounds. EXTREMITIES: Trace edema. SKIN: No rash. ENDOCRINE: No thyromegaly. LYMPHATICS: No cervical nodes. HEMATOPOIETIC: No bruising. PSYCHIATRIC: Stable. LABORATORY DATA: White count 6.9, hemoglobin 10.4, platelets 323. Electrolytes are normal. Troponin is 0. Chest x-ray: COPD. CT of the head negative, but there are some old infarcts bilaterally, but these are old. ASSESSMENT AND PLAN: Dizziness and orthostasis. The patient has been admitted. We will consult Neurology, give him IV normal saline 75 an hour. Continue his home meds, PT, OT. Full code. DVT prophylaxis, frequent labs, SNU eval. ABA BEASLEY DO DR: HORACIO/tess JOB#: [id number] / [id number]
[2019-01-24 18:52] LABS: BACTERIA,URINE 0 /HPF (0-FEW); RBC,URINE OCC /HPF (0-2); SQUAMOUS EPITHELIAL CELL,UR FEW /LPF; WBC,URINE 0 /HPF (0-4)
[2019-01-24 18:53] LABS: HYALINE CASTS, URINE FEW /HPF
[2019-01-24 19:34] VITALS: BP 110/71
[2019-01-24] MEDS ORDERED: ANTI-COAG MONITOR BY PHARMACY. MC PRN (19:45)
[2019-01-24 19:56] LABS: BARBITURATES NEG (NEG); BENZODIAZEPINES NEG (NEG); CANNABINOIDS NEG (NEG); COCAINE NEG (NEG); METHADONE NEG (NEG); OPIATES NEG (NEG); PHENCYCLIDINE NEG (NEG)
[2019-01-24] MEDS ORDERED: ALBUTEROL SULFATE 2.5 MG/3 ML NEBU. NEB SCH (20:00)
[2019-01-24 20:02] LABS: AMPHETAMINE/METHAMPHETAMINE NEG (NEG)
[2019-01-24] MEDS ORDERED: DOXYCYCLINE HYCLATE 100 MG TABLET PO SCH (21:00)
[2019-01-24] MEDS: IPRATRPIUM/ALBUTEROL 0.5/2.5MG 3 ML NEBU. NEB SCH (21:32)
[2019-01-24] MEDS: traZODone 100 MG TABLET. PO SCH (22:20)
[2019-01-24 23:13] VITALS: BP 95/62
[2019-01-25] VITALS (11 sets, daily range): BP systolic 75–129; BP diastolic 49–86
[2019-01-25] MEDS: ALBUTEROL SULFATE 2.5 MG/3 ML NEBU. NEB PRN ×2 (03:12→08:42)
[2019-01-25] MEDS: IPRATRPIUM/ALBUTEROL 0.5/2.5MG 3 ML NEBU. NEB SCH ×4 (08:00→20:00)
--- NOTE | 2019-01-25 08:14 | RAD ---
EXAM: Carotid Doppler sonogram. HISTORY: Dizziness. Lightheadedness. TECHNIQUE: Alexis scale and color Doppler sonographic evaluation of the neck with spectral waveform analysis was performed and static images are submitted for review. FINDINGS: There is minimal atherosclerotic plaque within the carotid bulbs. The peak systolic velocity within the right common carotid artery is 67 cm/sec. The peak systolic velocity within the right internal carotid artery is 62 cm/sec and the end diastolic velocity within the right internal carotid artery is 26 cm/sec. The right ICA/CCA ratio is 0.9. The peak systolic velocity within the left common carotid artery is 87 cm/sec. The peak systolic velocity within the left internal carotid artery is 91 cm/sec and the end diastolic velocity within the left internal carotid artery is 35 cm/sec. The left ICA/CCA ratio is 1.0. There is normal antegrade flow within both vertebral arteries. IMPRESSION: No Doppler evidence of hemodynamically significant stenosis within the carotid or vertebral arteries. PQRS Compliance Statement - Stenosis calculations for CT, MR and conventional angiography are based upon measurement of the distal ICA diameter in accordance with the NASCET methodology. Stenosis calculations for carotid ultrasound studies are derived from validated velocity criteria which are known to correlate with the NASCET methodology. Electronically signed by: Roseanne Kitchen MD (01/25/2019 8:11 AM) [place] [id number]
[2019-01-25] MEDS: CLOPIDOGREL BISULFATE 75 MG TABLET PO SCH (08:41)
[2019-01-25] MEDS: DIGOXIN 125 MCG TABLET. PO SCH (08:41)
--- NOTE | 2019-01-25 09:25 | PDOC ---
PROGRESS NOTES History of Present Illness History of Present Illness ASSESSMENT PLAN: Dizziness and orthostasis. COPD CHF s/p AICD - per cardiology - recent RV lead replacement due to lead fracture 11/02/2018. NYHA 1-2. Recovered EF at 50-55% AFIB - HX On sotalol and xarelto as well as digoxin. statin S/p AAA, Iliac artery aneurysm repair. DR CAAL DUE FOR F/U he cannot visit their office due to intractable severe pain bifurcated endograft hx plan admitted. consult Neurology, normal saline 75 an hour. home meds, PT, OT. Full code. DVT prophylaxis, frequent labs, SNU eval. CARDIOLOGY EVAL PT HYPOTENSIVE THIS AM WITH BP 90/60 at high fall risk due to orthostasis Vitals Vitals Vital Signs Date Time Temp Pulse Resp B/P (MAP) Pulse Ox O2 Delivery O2 Flow Rate FiO2 01/25/19 08:48 96 2.0 01/25/19 08:41 84 126/86 01/25/19 07:09 98.2 20 Nasal Cannula 98.2 Physical Exam General: Alert, Oriented X3, Cooperative, mild distress Heart: Regular rate Lungs: Clear, Crackles Abdomen: Normal bowel sounds, Soft, No tenderness Extremities: No cyanosis Labs LABS PAST MEDICAL HISTORY: COPD, TIA, back surgery, lumbar laminectomy, pacemaker, esophagitis, hernia repair, Jhaveri's palsy. ALLERGIES: ADHESIVE AND LATEX. FAMILY HISTORY: Coronary disease. 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 He does not drink, smoke or take drugs. AORTIC VALVE The aortic valve is probably trileaflet. Doppler and Color Flow revealed no significant aortic regurgitation. There is no significant aortic valvular stenosis. MITRAL VALVE The mitral valve is normal in structure and function. There is no evidence of mitral valve prolapse. There is no mitral valve stenosis. Doppler and Color- flow revealed mild mitral regurgitation. TRICUSPID VALVE The tricuspid valve is normal in structure and function. Doppler and Color Flow revealed trace tricuspid regurgitation. The PA pressure was estimated at 23 mmHg. There is no tricuspid valve prolapse or vegetation. There is no tricuspid valve stenosis. PULMONIC VALVE Pulmonic valve not well visualized. GREAT VESSELS The aortic root is normal in size. The ascending aorta is normal in size. PERICARDIAL EFFUSION There is no evidence of significant pericardial effusion. Critical Notification Critical Value: No <Conclusion> The left ventricle is normal size. The left ventricular systolic function is normal and the ejection fraction is within normal range. The Ejection Fraction is 50-55%. There is mild concentric left ventricular hypertrophy. Device lead noted in RV. There is no significant aortic valvular stenosis. Doppler and Color Flow revealed no significant aortic regurgitation. Doppler and Color-flow revealed mild mitral regurgitation. Doppler and Color Flow revealed trace tricuspid regurgitation. The PA pressure was estimated at 23 mmHg. Signed by : Renato Gao MD Electronically Approved : 08/20/2018 13:35:59 DICTATED and SIGNED BY: RENATO GAO MD DATE: 08/20/18 1332 Laboratory Tests Test 01/24/19 12:42 01/24/19 18:30 White Blood Count 6.9 x10^3/uL (4.0-11.0) Red Blood Count 5.08 x10^6/uL (4.30-5.70) Hemoglobin 10.4 g/dL (13.0-17.5) Hematocrit 34.4 % (39.0-53.0) Mean Corpuscular Volume 68 fL (79-100) Mean Corpuscular Hemoglobin 21 pg (25-35) Mean Corpuscular Hemoglobin Concent 30 g/dL (31-37) Red Cell Distribution Width 23.5 % (11.5-14.5) Platelet Count 323 x10^3/uL (140-400) Neutrophils (%) (Auto) 54 % (31-73) Lymphocytes (%) (Auto) 27 % (24-48) Monocytes (%) (Auto) 10 % (0-9) Eosinophils (%) (Auto) 7 % (0-3) Basophils (%) (Auto) 1 % (0-3) Neutrophils # (Auto) 3.7 x10^3uL (1.8-7.7) Lymphocytes # (Auto) 1.9 x10^3/uL (1.0-4.8) Monocytes # (Auto) 0.7 x10^3/uL (0.0-1.1) Eosinophils # (Auto) 0.5 x10^3/uL (0.0-0.7) Basophils # (Auto) 0.1 x10^3/uL (0.0-0.2) Platelet Estimate Adequate (ADEQUATE) Hypochromasia Marked Poikilocytosis Slight Anisocytosis Mod Microcytosis Marked Marie Cells Occ Schistocytes Occ Prothrombin Time 24.1 SEC (11.7-14.0) Prothromb Time International Ratio 2.2 (0.8-1.1) Sodium Level 142 mmol/L (136-145) Potassium Level 4.0 mmol/L (3.5-5.1) Chloride Level 104 mmol/L (98-107) Carbon Dioxide Level 28 mmol/L (21-32) Anion Gap 10 (6-14) Blood Urea Nitrogen 14 mg/dL (8-26) Creatinine 1.1 mg/dL (0.7-1.3) Estimated GFR (Cockcroft-Gault) 78.7 BUN/Creatinine Ratio 13 (6-20) Glucose Level 96 mg/dL (70-99) Calcium Level 9.0 mg/dL (8.5-10.1) Magnesium Level 2.1 mg/dL (1.8-2.4) Total Bilirubin 0.7 mg/dL (0.2-1.0) Aspartate Amino Transf (AST/SGOT) 16 U/L (15-37) Alanine Aminotransferase (ALT/SGPT) 12 U/L (16-63) Alkaline Phosphatase 91 U/L (46-116) Creatine Kinase 50 U/L (39-308) Troponin I Quantitative < 0.017 ng/mL (0.000-0.055) OD-Dyx-B-Type Natriuretic Peptide 233 pg/mL (0-449) Total Protein 7.3 g/dL (6.4-8.2) Albumin 3.3 g/dL (3.4-5.0) Albumin/Globulin Ratio 0.8 (1.0-1.7) Vitamin B12 Level 794 pg/mL (247-911) Thyroid Stimulating Hormone (TSH) 0.081 uIU/mL (0.358-3.74) Urine Collection Type Unknown Urine Color Yellow Urine Clarity Clear Urine pH 6.0 Urine Specific [place] 1.025 Urine Protein Negative mg/dL (NEG-TRACE) Urine Glucose (UA) Negative mg/dL (NEG) Urine Ketones (Stick) 15 mg/dL (NEG) Urine Blood Negative (NEG) Urine Nitrite Negative (NEG) Urine Bilirubin Small (NEG) Urine Urobilinogen Dipstick 0.2 mg/dL (0.2 mg/dL) Urine Leukocyte Esterase Negative (NEG) Urine RBC Occ /HPF (0-2) Urine WBC 0 /HPF (0-4) Urine Squamous Epithelial Cells Few /LPF Urine Bacteria 0 /HPF (0-FEW) Urine Hyaline Casts Few /HPF Urine Mucus Marked /LPF Urine Opiates Screen Neg (NEG) Urine Methadone Screen Neg (NEG) Urine Barbiturates Neg (NEG) Urine Phencyclidine Screen Neg (NEG) Urine Amphetamine/Methamphetamine Neg (NEG) Urine Benzodiazepines Screen Neg (NEG) Urine Cocaine Screen Neg (NEG) Urine Cannabinoids Screen Neg (NEG) Urine Ethyl Alcohol Neg (NEG) Assessment and Plan Assessmemt and Plan Problems Medical Problems: (1) Anemia Status: Acute (2) Atrial fibrillation Status: Acute HISTORY: 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 COMPARISON: CT scan chest, abdomen and pelvis performed earlier today. FINDINGS: Real-time grayscale, color-flow color duplex Doppler and spectral analysis of the aorta is performed and images are obtained. There is diffuse scattered calcified plaquing involving throughout the aorta. The proximal aorta is normal in caliber and measures up to 2.4 centimeter demonstrating a peak systolic velocity of 72.0 centimeters/second. Mid Aorta is not visualized due to overlying bowel gas. There is a infrarenal abdominal aortic aneurysm measuring up to 4.2 centimeter demonstrating a peak systolic velocity of 68.0 centimeters/second. The distal aorta proximal to the bifurcation measures up to 2.0 centimeter and demonstrates a peak systolic velocity of 49.0 centimeters/second. There is also a with aneurysm involving the right common iliac artery measuring up to 4.6 centimeter. IMPRESSION: Fusiform aneurysm involving the mid to distal aorta and right common iliac artery as outlined above. Electronically signed by: Kiki Bourne MD (Dec 08, 2014 20:52:17) DICTATED and SIGNED BY: KIKI BOURNE MD DATE: 12/08/142051 CC: BRII HUERTA MD; RENE MOON MD ~ PAST MEDICAL HISTORY: COPD, TIA, back surgery, lumbar laminectomy, pacemaker, esophagitis, hernia repair, Jhaveri's palsy. ALLERGIES: ADHESIVE AND LATEX. FAMILY HISTORY: Coronary disease. 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 He does not drink, smoke or take drugs. Nonvascular findings: Lower thoracic CT images revealed scattered pleural-parenchymal scars. Liver and spleen remain unremarkable in size and configuration, without localized solid mass. There is no CT evidence of radiopaque cholelithiasis and no evidence of biliary obstruction. No pancreatic or adrenal mass is seen. Right-sided simple renal cysts and a minimal nephrolithiasis noted, without evidence of solid renal mass or hydronephrosis, bilaterally. No significant retroperitoneal, pelvic, or inguinal lymphadenopathy is seen. Amorphus calcifications are noted within minimally prominent prostate. No pelvic soft tissue mass, abscess, or free fluid is seen. 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 Impression: 1. Widely patent bifurcated endograft remains unchanged in position, and provides continued exclusion of infrarenal abdominal aortic aneurysm and right hypogastric artery aneurysm. 2. There is no evidence of endoleak of any classification. The previously described small type II endoleak within the abdominal aortic aneurysm sac is no longer seen. 3. Slight continued decrease in size of the abdominal aortic aneurysm sac, from 44 mm to 42 mm. 4. Continued interval decrease in size of the right hypogastric artery aneurysm sac, from 47 mm to 42 mm. DICTATED and SIGNED BY: MARQUITA LATIF MD DATE: 06/08/15 1240 Comment Review of Relevant I have reviewed the following items mckayla (where applicable) has been applied. Labs Laboratory Tests Test 01/24/19 12:42 01/24/19 18:30 White Blood Count 6.9 x10^3/uL (4.0-11.0) Red Blood Count 5.08 x10^6/uL (4.30-5.70) Hemoglobin 10.4 g/dL (13.0-17.5) Hematocrit 34.4 % (39.0-53.0) Mean Corpuscular Volume 68 fL (79-100) Mean Corpuscular Hemoglobin 21 pg (25-35) Mean Corpuscular Hemoglobin Concent 30 g/dL (31-37) Red Cell Distribution Width 23.5 % (11.5-14.5) Platelet Count 323 x10^3/uL (140-400) Neutrophils (%) (Auto) 54 % (31-73) Lymphocytes (%) (Auto) 27 % (24-48) Monocytes (%) (Auto) 10 % (0-9) Eosinophils (%) (Auto) 7 % (0-3) Basophils (%) (Auto) 1 % (0-3) Neutrophils # (Auto) 3.7 x10^3uL (1.8-7.7) Lymphocytes # (Auto) 1.9 x10^3/uL (1.0-4.8) Monocytes # (Auto) 0.7 x10^3/uL (0.0-1.1) Eosinophils # (Auto) 0.5 x10^3/uL (0.0-0.7) Basophils # (Auto) 0.1 x10^3/uL (0.0-0.2) Platelet Estimate Adequate (ADEQUATE) Hypochromasia Marked Poikilocytosis Slight Anisocytosis Mod Microcytosis Marked [place] Cells Occ Schistocytes Occ Prothrombin Time 24.1 SEC (11.7-14.0) Prothromb Time International Ratio 2.2 (0.8-1.1) Sodium Level 142 mmol/L (136-145) Potassium Level 4.0 mmol/L (3.5-5.1) Chloride Level 104 mmol/L (98-107) Carbon Dioxide Level 28 mmol/L (21-32) Anion Gap 10 (6-14) Blood Urea Nitrogen 14 mg/dL (8-26) Creatinine 1.1 mg/dL (0.7-1.3) Estimated GFR (Cockcroft-Gault) 78.7 BUN/Creatinine Ratio 13 (6-20) Glucose Level 96 mg/dL (70-99) Calcium Level 9.0 mg/dL (8.5-10.1) Magnesium Level 2.1 mg/dL (1.8-2.4) Total Bilirubin 0.7 mg/dL (0.2-1.0) Aspartate Amino Transf (AST/SGOT) 16 U/L (15-37) Alanine Aminotransferase (ALT/SGPT) 12 U/L (16-63) Alkaline Phosphatase 91 U/L (46-116) Creatine Kinase 50 U/L (39-308) Troponin I Quantitative < 0.017 ng/mL (0.000-0.055) AA-Qia-A-Type Natriuretic Peptide 233 pg/mL (0-449) Total Protein 7.3 g/dL (6.4-8.2) Albumin 3.3 g/dL (3.4-5.0) Albumin/Globulin Ratio 0.8 (1.0-1.7) Vitamin B12 Level 794 pg/mL (247-911) Thyroid Stimulating Hormone (TSH) 0.081 uIU/mL (0.358-3.74) Urine Collection Type Unknown Urine Color Yellow Urine Clarity Clear Urine pH 6.0 Urine Specific [place] 1.025 Urine Protein Negative mg/dL (NEG-TRACE) Urine Glucose (UA) Negative mg/dL (NEG) Urine Ketones (Stick) 15 mg/dL (NEG) Urine Blood Negative (NEG) Urine Nitrite Negative (NEG) Urine Bilirubin Small (NEG) Urine Urobilinogen Dipstick 0.2 mg/dL (0.2 mg/dL) Urine Leukocyte Esterase Negative (NEG) Urine RBC Occ /HPF (0-2) Urine WBC 0 /HPF (0-4) Urine Squamous Epithelial Cells Few /LPF Urine Bacteria 0 /HPF (0-FEW) Urine Hyaline Casts Few /HPF Urine Mucus Marked /LPF Urine Opiates Screen Neg (NEG) Urine Methadone Screen Neg (NEG) Urine Barbiturates Neg (NEG) Urine Phencyclidine Screen Neg (NEG) Urine Amphetamine/Methamphetamine Neg (NEG) Urine Benzodiazepines Screen Neg (NEG) Urine Cocaine Screen Neg (NEG) Urine Cannabinoids Screen Neg (NEG) Urine Ethyl Alcohol Neg (NEG) Laboratory Tests Test 01/24/19 12:42 01/24/19 18:30 White Blood Count 6.9 x10^3/uL (4.0-11.0) Red Blood Count 5.08 x10^6/uL (4.30-5.70) Hemoglobin 10.4 g/dL (13.0-17.5) Hematocrit 34.4 % (39.0-53.0) Mean Corpuscular Volume 68 fL (79-100) Mean Corpuscular Hemoglobin 21 pg (25-35) Mean Corpuscular Hemoglobin Concent 30 g/dL (31-37) Red Cell Distribution Width 23.5 % (11.5-14.5) Platelet Count 323 x10^3/uL (140-400) Neutrophils (%) (Auto) 54 % (31-73) Lymphocytes (%) (Auto) 27 % (24-48) Monocytes (%) (Auto) 10 % (0-9) Eosinophils (%) (Auto) 7 % (0-3) Basophils (%) (Auto) 1 % (0-3) Neutrophils # (Auto) 3.7 x10^3uL (1.8-7.7) Lymphocytes # (Auto) 1.9 x10^3/uL (1.0-4.8) Monocytes # (Auto) 0.7 x10^3/uL (0.0-1.1) Eosinophils # (Auto) 0.5 x10^3/uL (0.0-0.7) Basophils # (Auto) 0.1 x10^3/uL (0.0-0.2) Platelet Estimate Adequate (ADEQUATE) Hypochromasia Marked Poikilocytosis Slight Anisocytosis Mod Microcytosis Marked Marie Cells Occ Schistocytes Occ Prothrombin Time 24.1 SEC (11.7-14.0) Prothromb Time International Ratio 2.2 (0.8-1.1) Sodium Level 142 mmol/L (136-145) Potassium Level 4.0 mmol/L (3.5-5.1) Chloride Level 104 mmol/L (98-107) Carbon Dioxide Level 28 mmol/L (21-32) Anion Gap 10 (6-14) Blood Urea Nitrogen 14 mg/dL (8-26) Creatinine 1.1 mg/dL (0.7-1.3) Estimated GFR (Cockcroft-Gault) 78.7 BUN/Creatinine Ratio 13 (6-20) Glucose Level 96 mg/dL (70-99) Calcium Level 9.0 mg/dL (8.5-10.1) Magnesium Level 2.1 mg/dL (1.8-2.4) Total Bilirubin 0.7 mg/dL (0.2-1.0) Aspartate Amino Transf (AST/SGOT) 16 U/L (15-37) Alanine Aminotransferase (ALT/SGPT) 12 U/L (16-63) Alkaline Phosphatase 91 U/L (46-116) Creatine Kinase 50 U/L (39-308) Troponin I Quantitative < 0.017 ng/mL (0.000-0.055) IE-Rdn-W-Type Natriuretic Peptide 233 pg/mL (0-449) Total Protein 7.3 g/dL (6.4-8.2) Albumin 3.3 g/dL (3.4-5.0) Albumin/Globulin Ratio 0.8 (1.0-1.7) Vitamin B12 Level 794 pg/mL (247-911) Thyroid Stimulating Hormone (TSH) 0.081 uIU/mL (0.358-3.74) Urine Collection Type Unknown Urine Color Yellow Urine Clarity Clear Urine pH 6.0 Urine Specific [place] 1.025 Urine Protein Negative mg/dL (NEG-TRACE) Urine Glucose (UA) Negative mg/dL (NEG) Urine Ketones (Stick) 15 mg/dL (NEG) Urine Blood Negative (NEG) Urine Nitrite Negative (NEG) Urine Bilirubin Small (NEG) Urine Urobilinogen Dipstick 0.2 mg/dL (0.2 mg/dL) Urine Leukocyte Esterase Negative (NEG) Urine RBC Occ /HPF (0-2) Urine WBC 0 /HPF (0-4) Urine Squamous Epithelial Cells Few /LPF Urine Bacteria 0 /HPF (0-FEW) Urine Hyaline Casts Few /HPF Urine Mucus Marked /LPF Urine Opiates Screen Neg (NEG) Urine Methadone Screen Neg (NEG) Urine Barbiturates Neg (NEG) Urine Phencyclidine Screen Neg (NEG) Urine Amphetamine/Methamphetamine Neg (NEG) Urine Benzodiazepines Screen Neg (NEG) Urine Cocaine Screen Neg (NEG) Urine Cannabinoids Screen Neg (NEG) Urine Ethyl Alcohol Neg (NEG) Medications Current Medications Meclizine HCl (Antivert) 25 mg 1X ONCE PO Last administered on 01/24/19at 13:00 ; Start 01/24/19 at 12:15; Stop 01/24/19 at 12:16; Status DC Albuterol Sulfate (Ventolin Neb Soln) 2.5 mg RTQID NEB Last administered on 01/24at 17:09; Start 01/24/19 at 20:00; Stop 01/24/19 at 20:00; Status DC Albuterol Sulfate (Ventolin Neb Soln) 2.5 mg PRN Q4HRS PRN NEB SHORTNESS OF BREATH Last administered on 01/25/19at 08:42; Start 01/24/19 at 17:15 Pharmacy Consult (C.diff Med Screen By Rx) 1 each 1X ONCE [facility] Last administered on 01/24/19at 17:45; Start 01/24/19 at 17:45; Stop 01/24/19 at 17:46; Status DC Clopidogrel Bisulfate (Plavix) 75 mg DAILY PO Last administered on 01/25/19at 08: 41; Start 01/24/19 at 18:30 Digoxin (Lanoxin) 125 mcg DAILY PO Last administered on 01/25/19at 08:41; Start 01/25/19 at 09:00 Doxycycline Hyclate (Vibra-Tab) 100 mg BID PO ; Start 01/24/19 at 21:00; Status UNV Gabapentin (Neurontin) 300 mg PRN TID PRN PO NEUROPATHIC PAIN; Start 01/24/19 at 18:00 Albuterol/ Ipratropium (Duoneb) 3 ml QIDPRN PRN NEB SHORTNESS OF BREATH; Start 01/24/19 at 18:00; Status UNV Albuterol/ Ipratropium (Duoneb) 3 ml RTQID NEB Last administered on 01/24/19at 21 :32; Start 01/24/19 at 20:00 Rivaroxaban (Xarelto) 20 mg DAILYWSUP PO ; Start 01/25/19 at 19:00 Trazodone HCl (Desyrel) 100 mg QHS PO Last administered on 01/24/19at 22:20; Start 01/24/19 at 21:00 Info (Anti-Coagulation Monitoring By Pharmacy) 1 each PRN DAILY PRN [facility] SEE COMMENTS; Start 01/24/19 at 19:45 Active Scripts Active Doxycycline Hyclate 100 Mg Tablet 1 Tab PO BID 3 Days Betapace (Sotalol Hcl) 80 Mg Tablet 40 Mg PO BID 30 Days Duoneb 0.5-3(2.5) Mg/3 Ml (Albuterol/Ipratropium) 3 Ml Ampul.neb 3 Ml NEB RTQID 30 Days Vitamin B-1 (Thiamine Mononitrate) 100 Mg Tablet 100 Mg PO DAILY 30 Days [Pantoprazole] 40 MG Tablet.dr 40 Mg PO DAILYAC 30 Days Proair Hfa Inhaler (Albuterol Sulfate) 8.5 Gm Hfa.aer.ad 1 Puff INH PRN Q6HRS PRN Reported Trazodone Hcl 100 Mg Tablet 100 Mg PO QHS Oxycodone Hcl 20 Mg Tablet 20 Mg PO TID PRN PRN Duoneb 0.5-3(2.5) Mg/3 Ml (Albuterol/Ipratropium) 3 Ml Ampul.neb 3 Ml NEB QIDPRN PRN Remeron (Mirtazapine) 15 Mg Tablet 1 Tab PO QHS Xarelto (Rivaroxaban) 15 Mg Tablet 20 Mg PO HS Simvastatin 20 Mg Tablet 1 Tab PO QHS Gabapentin (Gabapentin) 300 Mg Capsule 300 Mg PO PRN TID PRN can take 1 or 2 capsules Plavix (Clopidogrel Bisulfate) 75 Mg Tablet 75 Mg PO DAILY Digoxin 125 Mcg Tablet 125 Mcg PO DAILY Vitals/I & O Vital Sign - Last 24 Hours 01/24/19 01/24/19 01/24/19 01/24/19 11:37 12:00 13:03 13:30 Temp 97.5 97.5 Pulse 85 88 88 90 Resp 20 20 20 B/P (MAP) 139/84 (102) Pulse Ox 88 96 98 O2 Delivery Room Air 01/24/19 01/24/19 01/24/19 01/24/19 14:31 15:30 16:14 17:05 Temp 98.4 98.4 Pulse 98 86 71 Resp 20 22 B/P (MAP) 127/93 (104) Pulse Ox 93 95 94 94 O2 Delivery Nasal Cannula Nasal Cannula O2 Flow Rate 2.0 2.0 01/24/19 01/24/19 01/24/19 01/24/19 18:12 19:34 20:00 21:32 Temp 99.1 99.1 Pulse 86 Resp 18 B/P (MAP) 110/71 (84) Pulse Ox 97 96 O2 Delivery Nasal Cannula Nasal Cannula Nasal Cannula O2 Flow Rate 3.0 2.0 3.0 2.0 01/24/19 01/25/19 01/25/19 01/25/19 23:13 03:12 03:31 07:09 Temp 98.8 97.8 98.2 98.8 97.8 98.2 Pulse 80 82 84 Resp 16 20 20 B/P (MAP) 95/62 (73) 107/68 (81) 126/86 (99) Pulse Ox 94 95 95 98 O2 Delivery Nasal Cannula Nasal Cannula Nasal Cannula O2 Flow Rate 2.0 2.0 2.0 2.0 01/25/19 01/25/19 08:41 08:48 Pulse 84 B/P (MAP) 126/86 Pulse Ox 96 O2 Flow Rate 2.0 Intake and Output 01/24/19 01/24/19 01/25/19 15:00 23:00 07:00 Intake Total 0 ml 810 ml Output Total 300 ml Balance -300 ml 810 ml ANGEL BOTELLO MD Jan 25, 2019 09:25
--- NOTE | 2019-01-25 10:15 | NUR ---
SW consulted for SNU eval. Chart reviewed and discussed with RN. Pt lives at home alone. PT/OT pending. SW will await for PT/OT recommendation to assess skilled needs.
[2019-01-25] MEDS: IV NORMAL SALINE 1000ML BAG 1,000 ML IV SCH ×2 (10:27→20:39)
[2019-01-25] MEDS ORDERED: diphenhydrAMINE HCL 25 MG CAPSULE PO ONE (11:30)
[2019-01-25] MEDS ORDERED: diphenhydrAMINE ORAL ELIXIR 12.5 MG/5 ML ML PO ONE (11:30)
--- NOTE | 2019-01-25 13:46 | PDOC2 ---
CARDIAC CONSULT DATE OF CONSULT Date of Consult DATE: 01/25/19 TIME: 13:23 REASON FOR CONSULT Reason for Consult: Orthostasis, CM REFERRING PHYSICIAN Referring Physician: Fullbright SOURCE Source: Chart review, Patient HISTORY OF PRESENT ILLNESS HISTORY OF PRESENT ILLNESS This is a pleasant 78 yo male admitted for complains of dizziness. He has been struggling with orthostasis. He could not tell me if he is still taking sotalol. He does take digoxin. He have having multiple episodes of dizziness primarily when standing up and multiple events of aborted fall for he quickly just sits down if he started having dizzy spells. No chest pain, SOA, palpitations. Verbalized that he has been hydrating self but again continuous to be losing wt very gradually and has lost 6 pounds accdg to him in the last 2 months. No changes in his appetite. No recent fever or chills. PAST MEDICAL HISTORY Past Medical History Cardiovascular: AFIB, CAD, CHF, HTN, PR, Hyperlipidemia, orthostasis Pulmonary: Bronchitis, COPD CENTRAL NERVOUS SYSTEM: CVA, Peripheral neuropathy, Other GI: Constipation, GERD Heme/Onc: No pertinent hx, Other Hepatobiliary: No pertinent hx Psych: Addictions Musculoskeletal: low back pain Rheumatologic: No pertinent hx Infectious disease: No pertinent hx Renal/: Benign prostatic enlarg. PAST SURGICAL HISTORY Past Surgical History AICD with recent repair due to lead fracture, CABG, Cataract Removal, Hernia Repair FAMILY HISTORY Family History: Heart Disease SOCIAL HISTORY Smoke: No ALCOHOL: none Drugs: None Lives: Alone CURRENT MEDICATIONS CURRENT MEDICATIONS Current Medications Medications (Trade) Dose Ordered Sig/Alma Rosa Route PRN Reason Start Time Stop Time Status Last Admin Dose Admin Albuterol Sulfate (Ventolin Neb Soln) 2.5 mg RTQID NEB 01/24/19 20:00 01/24/19 20:00 DC 01/24/19 17:09 Albuterol Sulfate (Ventolin Neb Soln) 2.5 mg PRN Q4HRS PRN NEB SHORTNESS OF BREATH 01/24/19 17:15 01/25/19 08:42 Pharmacy Consult (C.diff Med Screen By Rx) 1 each 1X ONCE 01/24/19 17:45 01/24/19 17:46 DC 01/24/19 17:45 Clopidogrel Bisulfate (Plavix) 75 mg DAILY PO 01/24/19 18:30 01/25/19 08:41 Digoxin (Lanoxin) 125 mcg DAILY PO 01/25/19 09:00 01/25/19 08:41 Albuterol/ Ipratropium (Duoneb) 3 ml RTQID NEB 01/24/19 20:00 01/25/19 08:00 Trazodone HCl (Desyrel) 100 mg QHS PO 01/24/19 21:00 01/24/19 22:20 Sodium Chloride 1,000 ml @ 75 mls/hr [id number] IV 01/25/19 10:00 01/25/19 10:27 Diphenhydramine HCl (Benadryl Oral Elixir) 12.5 mg 1X ONCE PO 01/25/19 11:30 01/25/19 11:31 DC 01/25/19 12:17 ALLERGIES ALLERGIES: Coded Allergies: Iodinated Contrast- Oral and IV Dye (Verified Allergy, Severe, anaphalaxis , short of air, 06/06/15) adhesive (Verified Allergy, Severe, PAINFUL SKIN IRRITATION , 06/06/15) latex (Verified Allergy, Intermediate, Hives, 06/06/15) ROS Review of System 14 point ROS evaluated with pertinent positives noted per HPI PHYSICAL EXAM General: Alert, Oriented X3, Cooperative, No acute distress HEENT: Atraumatic, Mucous membr. moist/pink Lungs: Clear to auscultation, Normal air movement Heart: Regular rate (atrial paced), Normal S1, Normal S2, Other (2/6 systolic murmur to LLS border) Abdomen: Soft, No tenderness Extremities: No cyanosis, No edema Skin: No breakdown, No significant lesion Neuro: Normal speech, Sensation intact Psych/Mental Status: Mental status NL, Mood NL MUSCULOSKELETAL: Osteoarthritic changes both hands VITALS VITALS Vital Signs Date Time Temp Pulse Resp B/P (MAP) Pulse Ox O2 Delivery O2 Flow Rate FiO2 01/25/19 10:36 90/60 (70) Room Air 01/25/19 10:30 76 94 01/25/19 08:48 2.0 01/25/19 07:09 98.2 20 98.2 LABS Lab: Laboratory Tests Test 01/24/19 18:30 Urine Collection Type Unknown Urine Color Yellow Urine Clarity Clear Urine pH 6.0 Urine Specific [place] 1.025 Urine Protein Negative mg/dL (NEG-TRACE) Urine Glucose (UA) Negative mg/dL (NEG) Urine Ketones (Stick) 15 mg/dL (NEG) Urine Blood Negative (NEG) Urine Nitrite Negative (NEG) Urine Bilirubin Small (NEG) Urine Urobilinogen Dipstick 0.2 mg/dL (0.2 mg/dL) Urine Leukocyte Esterase Negative (NEG) Urine RBC Occ /HPF (0-2) Urine WBC 0 /HPF (0-4) Urine Squamous Epithelial Cells Few /LPF Urine Bacteria 0 /HPF (0-FEW) Urine Hyaline Casts Few /HPF Urine Mucus Marked /LPF Urine Opiates Screen Neg (NEG) Urine Methadone Screen Neg (NEG) Urine Barbiturates Neg (NEG) Urine Phencyclidine Screen Neg (NEG) Urine Amphetamine/Methamphetamine Neg (NEG) Urine Benzodiazepines Screen Neg (NEG) Urine Cocaine Screen Neg (NEG) Urine Cannabinoids Screen Neg (NEG) Urine Ethyl Alcohol Neg (NEG) ECHOCARDIOGRAM ECHOCARDIOGRAM <Conclusion> The left ventricle is normal size. The left ventricular systolic function is normal and the ejection fraction is within normal range. The Ejection Fraction is 50-55%. There is mild concentric left ventricular hypertrophy. Device lead noted in RV. There is no significant aortic valvular stenosis. Doppler and Color Flow revealed no significant aortic regurgitation. Doppler and Color-flow revealed mild mitral regurgitation. Doppler and Color Flow revealed trace tricuspid regurgitation. The PA pressure was estimated at 23 mmHg. DATE: 08/20/18 1336 STRESS TEST STRESS TEST Conclusion 1. Paced rhythm. 2. Nuclear imaging shows no reversible ischemia. 3. Nuclear imaging shows mild fixed thinning of the inferior wall consistent with an attenuation defect. 4. Normal LV systolic function with an ejection fraction of 60%. 5. Moderately low risk Lexiscan stress test with no reversible ischemia and an ejection fraction of 60%. DATE: 03/28/18 1413 ASSESSMENT/PLAN ASSESSMENT/PLAN 1. Presyncope due to known orthostasis 2. AICD in situ: ([employer]) 3. Hx of NICM: compensated. NYHA 1-2. Recovered EF at 50-55% 4. PAFIB: atrial paced intermittent 5. HLP 6. s/p AAA, Iliac artery aneurysm repair. Stable. 7. COPD: stable Recommendations 1. Continue with secondary prevention. 2. No florinef noted on his regimen as this was recommended before. Encouraged abdominal binder. Slow positional changes. 3. Continue xarelto for stroke prevention. 4. Continue digoxin. Would not be able to tolerate sotalol. Could consider transitioning to amiodarone if no previous issue with it for rhythm maintenance. 5. High fall risk. Will need to further discussed again in regards to ASA vs xarelto given his orthostasis issues and risk for falls. 6. Interrogate device. Agree with IVF. CRYSTAL BAUTISTA GERIATRIC ASSISTANT Jan 25, 2019 13:46
[2019-01-25 13:56] LABS: FREE T4 1.27 ng/dL (0.76-1.46)
[2019-01-25] MEDS: FLUDROCORTISONE 0.1 MG TABLET PO SCH (14:38)
[2019-01-25 15:02] LABS: CALCIUM 8.3 mg/dL (8.5-10.1); CREATININE 1.1 mg/dL (0.7-1.3); GFR 78.7; POTASSIUM 4.2 mmol/L (3.5-5.1)
--- NOTE | 2019-01-25 15:45 | CARD ---
MR#: [id number] Date of Study: 01/25/2019 Ordering Physician: ANGEL BOTELLO, Referring Physician: Janneth HDEZ: Elis Earl RDCS APPROVED REPORT EXAM: Two-dimensional and M-mode echocardiogram with Doppler and color Doppler. Other Information Quality : Technically Limited Technically limited study due to body habitus. INDICATION COPD 2D DIMENSIONS RVDd3.3 (2.9-3.5cm)Left Atrium(2D)4.5 (1.6-4.0cm) IVSd1.6 (0.7-1.1cm)Aortic Root(2D)2.7 (2.0-3.7cm) LVDd3.9 (3.9-5.9cm)LVOT Diameter2.2 (1.8-2.4cm) PWd1.2 (0.7-1.1cm)LVDs2.9 (2.5-4.0cm) FS (%) 30.0 %SV34.3 ml LVEF(%)60.0 (>50%) Mitral Valve MV E Ipbntbsa57.2cm/sMV DECEL [id number] MV A Hkvqxttn69.4cm/sE/A Ratio0.8 Tricuspid Valve TR P. [id number]/sRAP [id number] TR Peak Gr.[id number] LEFT VENTRICLE The left ventricle is normal size. There is normal left ventricular wall thickness. The left ventricu lar systolic function is normal and the ejection fraction is within normal range. The Ejection Fracti on is 60-65%. Septal motion suggestive of conduction defect, otherwise normal wall motion. Transmitra l Doppler flow pattern is Grade I-abnormal relaxation pattern. RIGHT VENTRICLE The right ventricle is normal size. The right ventricular systolic function is normal. ATRIA The left atrium is mildly dilated. The right atrium size is normal. The interatrial septum is intact with no evidence for an atrial septal defect or patent foramen ovale as noted on 2-D or Doppler imagi ng. AORTIC VALVE The aortic valve is calcified but opens well. Doppler and Color Flow revealed no significant aortic r egurgitation. There is no significant aortic valvular stenosis. MITRAL VALVE The mitral valve is calcified but opens well. There is no evidence of mitral valve prolapse. There is no mitral valve stenosis. Doppler and Color Flow revealed no mitral valve regurgitation noted. TRICUSPID VALVE The tricuspid valve is normal in structure and function. Doppler and Color Flow revealed mild tricusp id regurgitation. The PA pressure was estimated at 33 mmHg. There is no tricuspid valve stenosis. PULMONIC VALVE Doppler and Color Flow revealed no pulmonic valvular regurgitation. There is no pulmonic valvular natalee nosis. GREAT VESSELS The aortic root is normal in size. The ascending aorta is not well seen. PERICARDIAL EFFUSION There is no evidence of significant pericardial effusion. Critical Notification Critical Value: No <Conclusion> The left ventricular systolic function is normal and the ejection fraction is within normal range. Th e Ejection Fraction is 60-65%. Doppler and Color Flow revealed mild tricuspid regurgitation. The PA pressure was estimated at 33 mmH g. Septal motion suggestive of conduction defect, otherwise normal wall motion. Signed by : Felix Saleem, Electronically Approved : 01/25/2019 15:45:02
--- NOTE | 2019-01-25 17:24 | CONS ---
DATE OF CONSULTATION: PULMONARY CONSULTATION ATTENDING PHYSICIAN: Dr. Alin Ramirez. REASON FOR CONSULTATION: COPD. HISTORY OF PRESENT ILLNESS: The patient is 78 years old who came into the hospital with complaint of dizziness. He has been struggling with orthostasis. The patient has multiple episodes of dizziness in the recent past. He did not have a syncopal episode. No chest pain. He has some occasional shortness of breath with exertion. He has been wheezing as well. Denies any cough, no fever, no chest pains. No leg edema. No nausea, vomiting or diarrhea. Chest x-ray was reviewed. There was evidence of emphysema with hyperinflated lungs. No infiltrates seen. PAST MEDICAL HISTORY: History of COPD, history of hypertension, UT, hyperlipidemia, orthostasis, AFib, CVA, peripheral neuropathy. PAST SURGICAL HISTORY: AICD with recent repair. FAMILY HISTORY: Noncontributory to lungs. SOCIAL HISTORY: Has a history of tobacco use in the past. ALLERGIES: All reviewed. MEDICATIONS: All reviewed as listed in the MRAD. PHYSICAL EXAMINATION: VITAL SIGNS: Stable. Pulse ox 95% on room air. NECK: Supple. LUNGS: With faint expiratory wheezes. CARDIOVASCULAR: Regular rate and rhythm. ABDOMEN: Soft, nontender. EXTREMITIES: With no pitting edema. LABORATORY DATA: Reviewed. White cell count 6.9, hemoglobin 10.4, platelets 323. BUN and creatinine normal. IMPRESSION: 1. Dizziness related to orthostasis. Cardiology has been following. 2. Dyspnea with faint bronchospasm related to acute exacerbation of chronic obstructive pulmonary disease. 3. No definite consolidation seen on the chest x-ray. RECOMMENDATIONS: 1. Continue with present bronchodilators with DuoNeb. 2. Add Pulmicort. 3. Xarelto for AFib. 4. Monitoring of orthostasis closely per Cardiology. 5. Oxygen p.r.n. 6. Discussed with RN. We will follow along with you. VERONICA GASTELUM MD DR: ROGERIO/tess JOB#: [id number] / [id number]
--- NOTE | 2019-01-25 18:52 | PDOC2 ---
NEUROLOGY CONSULT Date of Admission Date of Admission DATE: 01/25/19 TIME: 18:29 Reason for Consult Reason for Consult: IMPRESSION: Dizziness and light headiness x 6 months, worsen now.. Orthostatic hypotension. AFib. CAD. HTN. HLD. COPD. 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 Degenerative spine disease. RECOMMENDATIONS/PLAN: He has been on Xarelto 20 mg daily. He has been on Plavix 75 mg daily. No need for both, but per Cardiology. Consider Midodrine starting low dose 2.5 mg tid, avoid dosing close to bedtime. Maintain good hydration. C-spine CT. LE stoking. Check ortho BP and HR. OT/PT. HISTORY OF PRESENT ILLNESS This is a 78-year-old AA male patient with history of chronic dizziness, and light headiness for about 6 months. He came to the ER of [facility] on 01/24/19 stating his sympotms of dizziness and light headiness became worse especially when he moves his eyes up and extend his head back or when he is on upright position. He has been struggling with orthostasis. He had multiple episodes of dizziness primarily when standing up and multiple events of aborted fall as quickly got sit down. No focalized sensory or motor deficits. Past Medical History Cardiovascular: AFIB, CAD, CHF, HTN, CT, Hyperlipidemia, Other (abdominal aortic aneurysm) Pulmonary: Bronchitis, COPD CENTRAL NERVOUS SYSTEM: CVA, Periperal neuropathy (idiopathic, but has had positive ANAs and past), Other (Jhaveri's palsy) GI: Constipation, GERD Musculoskeletal: low back pain Renal/: Benign prostatic enlarg. Past Surgical History Pacemaker (defibrillator), CABG, Cataract Removal, Hernia Repair (hiatal and inguinal), Other (lumbar, coronary stent, repair of esophageal tear, knee, AAA repair) Family History Cancer Allergies Coded Allergies: Iodinated Contrast- Oral and IV Dye (Verified Allergy, Severe, anaphalaxis , short of air, 06/06/15) adhesive (Verified Allergy, Severe, PAINFUL SKIN IRRITATION , 06/06/15) latex (Verified Allergy, Intermediate, Hives, 06/06/15) ROS Patient denies fevers, chills, weight loss,angina, abdominal pain, change in bowels, or dysuria. Positive for dyspnea. 14-point review of systems is negative. Social History , occasionally drinks alcohol heavily but not in the past week, occasional tobacco use, retired MEDICATIONS: Refer to MAR PHYSICAL EXAMINATION: General appearance is in subacute on chronic distress. HEENT: Normocephalic and nontraumatic. Eyes, nose, ears, and throat are unremarkable. Neck is supple. No lymphadenopathy. No bruits are heard over the carotid artery. No crepitus. Cardiovascular: S1, S2, seemed irregular rate and rhythm. Pulmonary: Clear to auscultation bilaterally. Abdomen: Bowel sounds are positive. Abdomen is soft, nontender, and nondistended. Extremities: No rash, lesions, or edema. No restriction of range of motion NEUROLOGICAL EXAMINATION: Awake. Oriented to time, place and person. PERRL. EOMI. CN: no focal findings. Muscle tone: within normal. Muscle strength: 4+ DTR: 2- Plantar reflex: Neutral response bilaterally Gait: not examined in bed. Sensory exam: no abnormal findings. No cerebellar signs elicited. F-T-N test fine. Current Medications Current Medications Current Medications Meclizine HCl (Antivert) 25 mg 1X ONCE PO Last administered on 01/24/19 13:00 ; Start 01/24/19 at 12:15; Stop 01/24/19 at 12:16; Status DC Albuterol Sulfate (Ventolin Neb Soln) 2.5 mg RTQID NEB Last administered on 01/24 17:09; Start 01/24/19 at 20:00; Stop 01/24/19 at 20:00; Status DC Albuterol Sulfate (Ventolin Neb Soln) 2.5 mg PRN Q4HRS PRN NEB SHORTNESS OF BREATH Last administered on 01/25/19 08:42; Start 01/24/19 at 17:15 Pharmacy Consult (C.diff Med Screen By Rx) 1 each 1X ONCE MC Last administered on 01/24/19 17:45; Start 01/24/19 at 17:45; Stop 01/24/19 at 17:46; Status DC Clopidogrel Bisulfate (Plavix) 75 mg DAILY PO Last administered on 01/25/19 08: 41; Start 01/24/19 at 18:30 Digoxin (Lanoxin) 125 mcg DAILY PO Last administered on 01/25/19 08:41; Start 01/25/19 at 09:00 Doxycycline Hyclate (Vibra-Tab) 100 mg BID PO ; Start 01/24/19 at 21:00; Status UNV Gabapentin (Neurontin) 300 mg PRN TID PRN PO NEUROPATHIC PAIN; Start 01/24/19 at 18:00 Albuterol/ Ipratropium (Duoneb) 3 ml QIDPRN PRN NEB SHORTNESS OF BREATH; Start 01/24/19 at 18:00; Status UNV Albuterol/ Ipratropium (Duoneb) 3 ml RTQID NEB Last administered on 01/25/19at 16 :54; Start 01/24/19 at 20:00 Rivaroxaban (Xarelto) 20 mg DAILYWSUP PO ; Start 01/25/19 at 19:00 Trazodone HCl (Desyrel) 100 mg QHS PO Last administered on 01/24/19at 22:20; Start 01/24/19 at 21:00 Info (Anti-Coagulation Monitoring By Pharmacy) 1 each PRN DAILY PRN MC SEE COMMENTS; Start 01/24/19 at 19:45 Sodium Chloride 1,000 ml @ 75 mls/hr [id number] IV Last administered on 01/25/19at 10:27; Start 01/25/19 at 10:00 Diphenhydramine HCl (Benadryl) 25 mg 1X ONCE PO ; Start 01/25/19 at 11:30; Stop 01/25/19 at 11:31; Status Cancel Diphenhydramine HCl (Benadryl Oral Elixir) 12.5 mg 1X ONCE PO Last administered on 01/25/19at 12:17; Start 01/25/19 at 11:30; Stop 01/25/19 at 11:31; Status DC Fludrocortisone Acetate (Florinef) 0.1 mg DAILY PO Last administered on at 14:38; Start 01/25/19 at 14:30 Budesonide (Pulmicort) 0.5 mg RTBID NEB ; Start 01/25/19 at 20:00 Active Scripts Active Doxycycline Hyclate 100 Mg Tablet 1 Tab PO BID 3 Days Betapace (Sotalol Hcl) 80 Mg Tablet 40 Mg PO BID 30 Days Duoneb 0.5-3(2.5) Mg/3 Ml (Albuterol/Ipratropium) 3 Ml Ampul.neb 3 Ml NEB RTQID 30 Days Vitamin B-1 (Thiamine Mononitrate) 100 Mg Tablet 100 Mg PO DAILY 30 Days [Pantoprazole] 40 MG Tablet.dr 40 Mg PO DAILYAC 30 Days Proair Hfa Inhaler (Albuterol Sulfate) 8.5 Gm Hfa.aer.ad 1 Puff INH PRN Q6HRS PRN Reported Trazodone Hcl 100 Mg Tablet 100 Mg PO QHS Oxycodone Hcl 20 Mg Tablet 20 Mg PO TID PRN PRN Duoneb 0.5-3(2.5) Mg/3 Ml (Albuterol/Ipratropium) 3 Ml Ampul.neb 3 Ml NEB QIDPRN PRN Remeron (Mirtazapine) 15 Mg Tablet 1 Tab PO QHS Xarelto (Rivaroxaban) 15 Mg Tablet 20 Mg PO HS Simvastatin 20 Mg Tablet 1 Tab PO QHS Gabapentin (Gabapentin) 300 Mg Capsule 300 Mg PO PRN TID PRN can take 1 or 2 capsules Plavix (Clopidogrel Bisulfate) 75 Mg Tablet 75 Mg PO DAILY Digoxin 125 Mcg Tablet 125 Mcg PO DAILY Allergies Allergies: Allergies Coded Allergies Type Severity Reaction Last Updated Verified Iodinated Contrast- Oral and IV Dye Allergy Severe anaphalaxis, short of air Yes adhesive Allergy Severe PAINFUL SKIN IRRITATION 06/06/15 Yes latex Allergy Intermediate Hives 06/06/15 Yes ROS Review of System The patient denies any associated fevers, chills, headache, ear pain, rhinorrhea , sore throat, stiff neck, productive cough, chest pain, shortness of breath, back or flank pain, abdominal pain, nausea, vomiting, diarrhea, constipation, dysuria, rash, numbness, weakness, tingling, incontinence, difficulty ambulating, or diaphoresis. Physical Exam Physical Exam General: Well developed, well nourished, no acute distress, well appearing HEENT: Pupils equally round and reactive to light, EOMI, no discharge, normal conjunctiva Neck: Supple, no nuchal rigidity, no JVD, trachea midline, no tenderness Cardiac: RRR, no murmurs, no gallops, no rubs Chest/Lungs: CTAB, no wheeze, no rhonchi, no crackles Abdomen: soft, non-distended, no guarding, no peritoneal signs, non-tender Back: No tenderness Extremities: no edema, pulses intact, non-tender,capillary refill <3 sec bilateral upper and lower extremities, Neuro: Alert and oriented x 4, no focal deficits, normal speech Vitals Vitals: Vital Signs Date Time Temp Pulse Resp B/P (MAP) Pulse Ox O2 Delivery O2 Flow Rate FiO2 01/25/19 14:30 101 108/65 (79) Room Air 01/25/19 14:23 94 01/25/19 14:20 98.9 20 98.9 01/25/19 08:48 2.0 Labs Labs Laboratory Tests Test 01/24/19 12:42 01/24/19 18:30 01/25/19 12:45 White Blood Count 6.9 x10^3/uL (4.0-11.0) Red Blood Count 5.08 x10^6/uL (4.30-5.70) Hemoglobin 10.4 g/dL (13.0-17.5) Hematocrit 34.4 % (39.0-53.0) Mean Corpuscular Volume 68 fL (79-100) Mean Corpuscular Hemoglobin 21 pg (25-35) Mean Corpuscular Hemoglobin Concent 30 g/dL (31-37) Red Cell Distribution Width 23.5 % (11.5-14.5) Platelet Count 323 x10^3/uL (140-400) Neutrophils (%) (Auto) 54 % (31-73) Lymphocytes (%) (Auto) 27 % (24-48) Monocytes (%) (Auto) 10 % (0-9) Eosinophils (%) (Auto) 7 % (0-3) Basophils (%) (Auto) 1 % (0-3) Neutrophils # (Auto) 3.7 x10^3uL (1.8-7.7) Lymphocytes # (Auto) 1.9 x10^3/uL (1.0-4.8) Monocytes # (Auto) 0.7 x10^3/uL (0.0-1.1) Eosinophils # (Auto) 0.5 x10^3/uL (0.0-0.7) Basophils # (Auto) 0.1 x10^3/uL (0.0-0.2) Platelet Estimate Adequate (ADEQUATE) Hypochromasia Marked Poikilocytosis Slight Anisocytosis Mod Microcytosis Marked Marie Cells Occ Schistocytes Occ Prothrombin Time 24.1 SEC (11.7-14.0) Prothromb Time International Ratio 2.2 (0.8-1.1) Sodium Level 142 mmol/L (136-145) 142 mmol/L (136-145) Potassium Level 4.0 mmol/L (3.5-5.1) 4.2 mmol/L (3.5-5.1) Chloride Level 104 mmol/L (98-107) 105 mmol/L (98-107) Carbon Dioxide Level 28 mmol/L (21-32) 28 mmol/L (21-32) Anion Gap 10 (6-14) 9 (6-14) Blood Urea Nitrogen 14 mg/dL (8-26) 14 mg/dL (8-26) Creatinine 1.1 mg/dL (0.7-1.3) 1.1 mg/dL (0.7-1.3) Estimated GFR (Cockcroft-Gault) 78.7 78.7 BUN/Creatinine Ratio 13 (6-20) Glucose Level 96 mg/dL (70-99) 103 mg/dL (70-99) Calcium Level 9.0 mg/dL (8.5-10.1) 8.3 mg/dL (8.5-10.1) Magnesium Level 2.1 mg/dL (1.8-2.4) 2.0 mg/dL (1.8-2.4) Total Bilirubin 0.7 mg/dL (0.2-1.0) Aspartate Amino Transf (AST/SGOT) 16 U/L (15-37) Alanine Aminotransferase (ALT/SGPT) 12 U/L (16-63) Alkaline Phosphatase 91 U/L (46-116) Creatine Kinase 50 U/L (39-308) Troponin I Quantitative < 0.017 ng/mL (0.000-0.055) TE-Tjd-F-Type Natriuretic Peptide 233 pg/mL (0-449) Total Protein 7.3 g/dL (6.4-8.2) Albumin 3.3 g/dL (3.4-5.0) Albumin/Globulin Ratio 0.8 (1.0-1.7) Vitamin B12 Level 794 pg/mL (247-911) Thyroid Stimulating Hormone (TSH) 0.081 uIU/mL (0.358-3.74) Urine Collection Type Unknown Urine Color Yellow Urine Clarity Clear Urine pH 6.0 Urine Specific Kennedy 1.025 Urine Protein Negative mg/dL (NEG-TRACE) Urine Glucose (UA) Negative mg/dL (NEG) Urine Ketones (Stick) 15 mg/dL (NEG) Urine Blood Negative (NEG) Urine Nitrite Negative (NEG) Urine Bilirubin Small (NEG) Urine Urobilinogen Dipstick 0.2 mg/dL (0.2 mg/dL) Urine Leukocyte Esterase Negative (NEG) Urine RBC Occ /HPF (0-2) Urine WBC 0 /HPF (0-4) Urine Squamous Epithelial Cells Few /LPF Urine Bacteria 0 /HPF (0-FEW) Urine Hyaline Casts Few /HPF Urine Mucus Marked /LPF Urine Opiates Screen Neg (NEG) Urine Methadone Screen Neg (NEG) Urine Barbiturates Neg (NEG) Urine Phencyclidine Screen Neg (NEG) Urine Amphetamine/Methamphetamine Neg (NEG) Urine Benzodiazepines Screen Neg (NEG) Urine Cocaine Screen Neg (NEG) Urine Cannabinoids Screen Neg (NEG) Urine Ethyl Alcohol Neg (NEG) Free Thyroxine 1.27 ng/dL (0.76-1.46) Free Triiodothyronine (T3) pg/mL 2.58 pg/mL (2.18-3.98) Laboratory Tests Test 01/24/19 18:30 01/25/19 12:45 Urine Collection Type Unknown Urine Color Yellow Urine Clarity Clear Urine pH 6.0 Urine Specific Kennedy 1.025 Urine Protein Negative mg/dL (NEG-TRACE) Urine Glucose (UA) Negative mg/dL (NEG) Urine Ketones (Stick) 15 mg/dL (NEG) Urine Blood Negative (NEG) Urine Nitrite Negative (NEG) Urine Bilirubin Small (NEG) Urine Urobilinogen Dipstick 0.2 mg/dL (0.2 mg/dL) Urine Leukocyte Esterase Negative (NEG) Urine RBC Occ /HPF (0-2) Urine WBC 0 /HPF (0-4) Urine Squamous Epithelial Cells Few /LPF Urine Bacteria 0 /HPF (0-FEW) Urine Hyaline Casts Few /HPF Urine Mucus Marked /LPF Urine Opiates Screen Neg (NEG) Urine Methadone Screen Neg (NEG) Urine Barbiturates Neg (NEG) Urine Phencyclidine Screen Neg (NEG) Urine Amphetamine/Methamphetamine Neg (NEG) Urine Benzodiazepines Screen Neg (NEG) Urine Cocaine Screen Neg (NEG) Urine Cannabinoids Screen Neg (NEG) Urine Ethyl Alcohol Neg (NEG) Sodium Level 142 mmol/L (136-145) Potassium Level 4.2 mmol/L (3.5-5.1) Chloride Level 105 mmol/L (98-107) Carbon Dioxide Level 28 mmol/L (21-32) Anion Gap 9 (6-14) Blood Urea Nitrogen 14 mg/dL (8-26) Creatinine 1.1 mg/dL (0.7-1.3) Estimated GFR (Cockcroft-Gault) 78.7 Glucose Level 103 mg/dL (70-99) Calcium Level 8.3 mg/dL (8.5-10.1) Magnesium Level 2.0 mg/dL (1.8-2.4) Free Thyroxine 1.27 ng/dL (0.76-1.46) Free Triiodothyronine (T3) pg/mL 2.58 pg/mL (2.18-3.98) PAUL FRENCH MD Jan 25, 2019 18:52
[2019-01-25] MEDS: BUDESONIDE 0.5 MG/2 ML NEBU. NEB SCH (20:00)
[2019-01-25] MEDS: traZODone 100 MG TABLET. PO SCH (20:37)
[2019-01-25] MEDS: RIVAROXABAN 10 MG TABLET. PO SCH (20:37)
[2019-01-25] MEDS: MIDODRINE 2.5 MG TABLET PO SCH (20:42)
--- NOTE | 2019-01-25 20:44 | NUR ---
Evening meds administered late - pt NPO for ABD U/S. See eMAR.
[2019-01-26] VITALS (8 sets, daily range): BP systolic 95–133; BP diastolic 50–77
[2019-01-26] MEDS: ALBUTEROL SULFATE 2.5 MG/3 ML NEBU. NEB PRN (02:43)
[2019-01-26] MEDS: MIDODRINE 2.5 MG TABLET PO SCH ×3 (06:22→17:31)
[2019-01-26] MEDS: BUDESONIDE 0.5 MG/2 ML NEBU. NEB SCH ×2 (06:29→20:30)
[2019-01-26] MEDS: IPRATRPIUM/ALBUTEROL 0.5/2.5MG 3 ML NEBU. NEB SCH ×4 (06:29→20:30)
[2019-01-26 07:11] LABS: CALCIUM 8.1 mg/dL (8.5-10.1); GFR 87.9; POTASSIUM 4.1 mmol/L (3.5-5.1)
[2019-01-26 08:09] LABS: BASO % 1 % (0-3); EOS # 0.4 x10^3/uL (0.0-0.7); EOS % 8 % (0-3); HEMOGLOBIN 8.9 g/dL (13.0-17.5); LYMPH # 2.3 x10^3/uL (1.0-4.8); LYMPH % 51 % (24-48); MEAN CORPUSCULAR HEMOGLOBIN 21 pg (25-35); MEAN CORPUSCULAR HGB CONC 31 g/dL (31-37); MEAN CORPUSCULAR VOLUME 68 fL (79-100); MONO # 0.5 x10^3/uL (0.0-1.1); MONO % 10 % (0-9); NEUT # 1.3 x10^3uL (1.8-7.7); NEUT % 30 % (31-73); PLATELET COUNT 252 x10^3/uL (140-400); RED CELL DISTRIBUTION WIDTH 23.2 % (11.5-14.5); WHITE BLOOD COUNT 4.5 x10^3/uL (4.0-11.0)
[2019-01-26] MEDS: DIGOXIN 125 MCG TABLET. PO SCH (08:24)
[2019-01-26] MEDS: FLUDROCORTISONE 0.1 MG TABLET PO SCH (08:25)
[2019-01-26] MEDS: CLOPIDOGREL BISULFATE 75 MG TABLET PO SCH (08:25)
--- NOTE | 2019-01-26 08:57 | RAD ---
PQRS Compliance Statement: One or more of the following individualized dose reduction techniques were utilized for this examination: 1. Automated exposure control 2. Adjustment of the mA and/or kV according to patient size 3. Use of iterative reconstruction technique Spine without contrast January 25, 2019 INDICATION: Degenerative disc disease of the neck. COMPARISON: None available TECHNIQUE: Multiple axial CT images of the cervical spine were obtained without intravenous contrast. Coronal and sagittal reformats are provided. FINDINGS: Alignment of the cervical spine is normal. There is mild straightening of the normal cervical lordosis. There is moderate to advanced disc height loss at C5-C6. There is mild to moderate disc height loss at C2-C3, C3-C4, C4-C5, C6-C7 and C7-T1. Vacuum disc phenomena is identified at C3-C4, C4-C5, C6-C7, C7-T1 and T1-T2. Mild to moderate anterior marginal osteophytosis is identified from C3-C4 through C6-C7. There is fusion of the C2-C3 facet joints bilaterally. Subchondral condyles are intact. Atlantoaxial articulation degenerative changes are noted. Precervical junction is normal. There is no prevertebral soft tissue swelling. Paraspinal soft tissues are normal in appearance. There may be subcentimeter nodules within the posterior left thyroid lobe. No suspicious pulmonary findings are identified. There is mild centrilobular pulmonary emphysema. Minor calcifications are identified at the carotid bifurcations. C2-C3: There is a posterior disc osteophyte complex. There is moderate to severe left and moderate right facet arthropathy. There is no significant neuroforaminal or spinal canal stenosis. C3-C4: There is a posterior disc osteophyte complex asymmetric to the right. There is severe bilateral facet arthropathy, right greater than left. There is moderate right and mild left uncovertebral joint disease. There is severe right and moderate left neuroforaminal stenosis. Mild spinal canal stenosis. C4-C5: There is a posterior disc osteophyte complex asymmetric to the left. There is moderate bilateral facet arthropathy. There is moderate bilateral uncovertebral joint disease. There is moderate to severe left and moderate right neuroforaminal stenosis. Mild spinal canal stenosis. C5-C6: There is a posterior disc osteophyte complex with central calcified disc protrusion. There is severe uncovertebral joint disease. There is moderate to severe bilateral neuroforaminal stenosis. Mild to moderate bilateral facet arthropathy. Moderate spinal canal stenosis. C6-C7: There is a posterior disc osteophyte complex with left central disc protrusion containing gas. There is mild facet arthropathy. There is moderate uncovertebral joint disease. There is moderate bilateral neuroforaminal stenosis. Mild spinal canal stenosis. C7-T1: There is a mild disc bulge. There is mild facet and uncovertebral joint disease. No neuroforaminal or spinal canal stenosis. IMPRESSION: 1. Moderate cervical spondylosis, as described in detail above. No acute fracture is identified. Electronically signed by: Marla Huertas MD (01/26/2019 8:54 AM) [id number]
--- NOTE | 2019-01-26 09:35 | RAD ---
Examination: SCAN OF ABDOMINAL AORTA History: AAA/HX OF GRAFT REPAIR INTO ILIAC Comparison/Correlation: 06/06/2015 CTA abdomen and pelvis Findings: Abdominal aortic ultrasound exam was performed. Bowel gas limits evaluation. Abdominal aortic diameter proximally is 2.6 cm, midportion is 3.3 cm, and at the distal aspect is 3.1 cm in diameter. Plaque is evident throughout the abdominal aorta. Right common iliac arterial diameter of 1 cm is noted. Left common iliac arterial diameter of 1 cm also noted. Triphasic flow is present within the common iliac arteries. Impression: Abdominal aortic aneurysm measuring up to 3.3 cm diameter. This is moderate to significantly decreased as compared to 06/06/2015 CTA of the abdomen and pelvis Electronically signed by: Valdez Baptiste MD (01/26/2019 9:32 AM) [facility]
--- NOTE | 2019-01-26 10:33 | NUR ---
Assumed pt care at this time. Report received from Matias. Pt is in bed watching tv. Denied any needs at this time. Will return to monitor.
--- NOTE | 2019-01-26 10:43 | PDOC ---
PROGRESS NOTES History of Present Illness History of Present Illness ASSESSMENT PLAN: Dizziness and orthostasis. persistent, slow to improve COPD CHF s/p AICD - per cardiology - recent RV lead replacement due to lead fracture 11/02/2018. NYHA 1-2. Recovered EF at 50-55% AFIB - HX On sotalol and xarelto as well as digoxin. statin S/p AAA, Iliac artery aneurysm repair. DR CAAL DUE FOR F/U he cannot visit their office due to intractable severe pain bifurcated endograft hx Abdominal aortic aneurysm measuring up to 3.3 cm diameter. This is moderate to significantly decreased as compared to 06/06/2015 CTA of the abdomen and pelvis No Doppler evidence of hemodynamically significant stenosis within the carotid or vertebral arteries. C3-C4: There is a posterior disc osteophyte complex asymmetric to the right. There is severe bilateral facet arthropathy, right greater than left. There is moderate right and mild left uncovertebral joint disease. There is severe right and moderate left neuroforaminal stenosis. plan admitted. consult dr nguyen consult Neurology, normal saline 75 an hour. home meds, PT, OT. Full code. DVT prophylaxis, frequent labs, SNU eval. CARDIOLOGY EVAL PT HYPOTENSIVE 01/25 WITH BP 90/60 at high fall risk due to orthostasis 47 min pt exam, chart review, > 50% of time spent with exam, chart review pt care coordination Vitals Vitals Vital Signs Date Time Temp Pulse Resp B/P (MAP) Pulse Ox O2 Delivery O2 Flow Rate FiO2 01/26/19 08:24 86 98/64 01/26/19 08:00 Room Air 01/26/19 07:00 98.6 18 98 2.0 98.6 Physical Exam General: Alert, Oriented X3, Cooperative, No acute distress Heart: Regular rate (atrial paced), Normal S1, Normal S2, Other (2/6 systolic murmur to LLS border) Lungs: Clear, Crackles Abdomen: Soft, No tenderness Extremities: No cyanosis, No edema Skin: No breakdown, No significant lesion Labs LABS INDICATION: Degenerative disc disease of the neck. COMPARISON: None available TECHNIQUE: Multiple axial CT images of the cervical spine were obtained without intravenous contrast. Coronal and sagittal reformats are provided. FINDINGS: Alignment of the cervical spine is normal. There is mild straightening of the normal cervical lordosis. There is moderate to advanced disc height loss at C5-C6. There is mild to moderate disc height loss at C2-C3, C3-C4, C4-C5, C6-C7 and C7-T1. Vacuum disc phenomena is identified at C3-C4, C4-C5, C6-C7, C7-T1 and T1-T2. Mild to moderate anterior marginal osteophytosis is identified from C3-C4 through C6-C7. There is fusion of the C2-C3 facet joints bilaterally. Subchondral condyles are intact. Atlantoaxial articulation degenerative changes are noted. Precervical junction is normal. There is no prevertebral soft tissue swelling. Paraspinal soft tissues are normal in appearance. There may be subcentimeter nodules within the posterior left thyroid lobe. No suspicious pulmonary findings are identified. There is mild centrilobular pulmonary emphysema. Minor calcifications are identified at the carotid bifurcations. C2-C3: There is a posterior disc osteophyte complex. There is moderate to severe left and moderate right facet arthropathy. There is no significant neuroforaminal or spinal canal stenosis. C3-C4: There is a posterior disc osteophyte complex asymmetric to the right. There is severe bilateral facet arthropathy, right greater than left. There is moderate right and mild left uncovertebral joint disease. There is severe right and moderate left neuroforaminal stenosis. Mild spinal canal stenosis. C4-C5: There is a posterior disc osteophyte complex asymmetric to the left. There is moderate bilateral facet arthropathy. There is moderate bilateral uncovertebral joint disease. There is moderate to severe left and moderate right neuroforaminal stenosis. Mild spinal canal stenosis. C5-C6: There is a posterior disc osteophyte complex with central calcified disc protrusion. There is severe uncovertebral joint disease. There is moderate to severe bilateral neuroforaminal stenosis. Mild to moderate bilateral facet arthropathy. Moderate spinal canal stenosis. C6-C7: There is a posterior disc osteophyte complex with left central disc protrusion containing gas. There is mild facet arthropathy. There is moderate uncovertebral joint disease. There is moderate bilateral neuroforaminal stenosis. Mild spinal canal stenosis. C7-T1: There is a mild disc bulge. There is mild facet and uncovertebral joint disease. No neuroforaminal or spinal canal stenosis. IMPRESSION: 1. Moderate cervical spondylosis, as described in detail above. No acute fracture is identified. Electronically signed by: Sol Arthur MD (01/26/2019 8:54 AM) [id number] DICTATED and SIGNED BY: SOL ARTHUR MD DATE: 01/26/19 0854 Examination: SCAN OF ABDOMINAL AORTA History: AAA/HX OF GRAFT REPAIR INTO ILIAC Comparison/Correlation: 06/06/2015 CTA abdomen and pelvis Findings: Abdominal aortic ultrasound exam was performed. Bowel gas limits evaluation. Abdominal aortic diameter proximally is 2.6 cm, midportion is 3.3 cm, and at the distal aspect is 3.1 cm in diameter. Plaque is evident throughout the abdominal aorta. Right common iliac arterial diameter of 1 cm is noted. Left common iliac arterial diameter of 1 cm also noted. Triphasic flow is present within the common iliac arteries. Impression: Abdominal aortic aneurysm measuring up to 3.3 cm diameter. This is moderate to significantly decreased as compared to 06/06/2015 CTA of the abdomen and pelvis Electronically signed by: Valdez Baptiste MD (01/26/2019 9:32 AM) [facility] Laboratory Tests Test 01/25/19 12:45 01/26/19 06:30 Sodium Level 142 mmol/L (136-145) 144 mmol/L (136-145) Potassium Level 4.2 mmol/L (3.5-5.1) 4.1 mmol/L (3.5-5.1) Chloride Level 105 mmol/L (98-107) 108 mmol/L (98-107) Carbon Dioxide Level 28 mmol/L (21-32) 28 mmol/L (21-32) Anion Gap 9 (6-14) 8 (6-14) Blood Urea Nitrogen 14 mg/dL (8-26) 16 mg/dL (8-26) Creatinine 1.1 mg/dL (0.7-1.3) 1.0 mg/dL (0.7-1.3) Estimated GFR (Cockcroft-Gault) 78.7 87.9 Glucose Level 103 mg/dL (70-99) 79 mg/dL (70-99) Calcium Level 8.3 mg/dL (8.5-10.1) 8.1 mg/dL (8.5-10.1) Magnesium Level 2.0 mg/dL (1.8-2.4) Free Thyroxine 1.27 ng/dL (0.76-1.46) Free Triiodothyronine (T3) pg/mL 2.58 pg/mL (2.18-3.98) White Blood Count 4.5 x10^3/uL (4.0-11.0) Red Blood Count 4.30 x10^6/uL (4.30-5.70) Hemoglobin 8.9 g/dL (13.0-17.5) Hematocrit 29.0 % (39.0-53.0) Mean Corpuscular Volume 68 fL (79-100) Mean Corpuscular Hemoglobin 21 pg (25-35) Mean Corpuscular Hemoglobin Concent 31 g/dL (31-37) Red Cell Distribution Width 23.2 % (11.5-14.5) Platelet Count 252 x10^3/uL (140-400) Neutrophils (%) (Auto) 30 % (31-73) Lymphocytes (%) (Auto) 51 % (24-48) Monocytes (%) (Auto) 10 % (0-9) Eosinophils (%) (Auto) 8 % (0-3) Basophils (%) (Auto) 1 % (0-3) Neutrophils # (Auto) 1.3 x10^3uL (1.8-7.7) Lymphocytes # (Auto) 2.3 x10^3/uL (1.0-4.8) Monocytes # (Auto) 0.5 x10^3/uL (0.0-1.1) Eosinophils # (Auto) 0.4 x10^3/uL (0.0-0.7) Basophils # (Auto) 0.0 x10^3/uL (0.0-0.2) Assessment and Plan Assessmemt and Plan Problems Medical Problems: (1) Anemia Status: Acute (2) Atrial fibrillation Status: Acute Comment Review of Relevant I have reviewed the following items [email or web address] (where applicable) has been applied. Labs Laboratory Tests Test 01/24/19 12:42 01/24/19 18:30 01/25/19 12:45 01/26/19 06:30 White Blood Count 6.9 x10^3/uL (4.0-11.0) 4.5 x10^3/uL (4.0-11.0) Red Blood Count 5.08 x10^6/uL (4.30-5.70) 4.30 x10^6/uL (4.30-5.70) Hemoglobin 10.4 g/dL (13.0-17.5) 8.9 g/dL (13.0-17.5) Hematocrit 34.4 % (39.0-53.0) 29.0 % (39.0-53.0) Mean Corpuscular Volume 68 fL (79-100) 68 fL (79-100) Mean Corpuscular Hemoglobin 21 pg (25-35) 21 pg (25-35) Mean Corpuscular Hemoglobin Concent 30 g/dL (31-37) 31 g/dL (31-37) Red Cell Distribution Width 23.5 % (11.5-14.5) 23.2 % (11.5-14.5) Platelet Count 323 x10^3/uL (140-400) 252 x10^3/uL (140-400) Neutrophils (%) (Auto) 54 % (31-73) 30 % (31-73) Lymphocytes (%) (Auto) 27 % (24-48) 51 % (24-48) Monocytes (%) (Auto) 10 % (0-9) 10 % (0-9) Eosinophils (%) (Auto) 7 % (0-3) 8 % (0-3) Basophils (%) (Auto) 1 % (0-3) 1 % (0-3) Neutrophils # (Auto) 3.7 x10^3uL (1.8-7.7) 1.3 x10^3uL (1.8-7.7) Lymphocytes # (Auto) 1.9 x10^3/uL (1.0-4.8) 2.3 x10^3/uL (1.0-4.8) Monocytes # (Auto) 0.7 x10^3/uL (0.0-1.1) 0.5 x10^3/uL (0.0-1.1) Eosinophils # (Auto) 0.5 x10^3/uL (0.0-0.7) 0.4 x10^3/uL (0.0-0.7) Basophils # (Auto) 0.1 x10^3/uL (0.0-0.2) 0.0 x10^3/uL (0.0-0.2) Platelet Estimate Adequate (ADEQUATE) Hypochromasia Marked Poikilocytosis Slight Anisocytosis Mod Microcytosis Marked Marie Cells Occ Schistocytes Occ Prothrombin Time 24.1 SEC (11.7-14.0) Prothromb Time International Ratio 2.2 (0.8-1.1) Sodium Level 142 mmol/L (136-145) 142 mmol/L (136-145) 144 mmol/L (136-145) Potassium Level 4.0 mmol/L (3.5-5.1) 4.2 mmol/L (3.5-5.1) 4.1 mmol/L (3.5-5.1) Chloride Level 104 mmol/L (98-107) 105 mmol/L (98-107) 108 mmol/L (98-107) Carbon Dioxide Level 28 mmol/L (21-32) 28 mmol/L (21-32) 28 mmol/L (21-32) Anion Gap 10 (6-14) 9 (6-14) 8 (6-14) Blood Urea Nitrogen 14 mg/dL (8-26) 14 mg/dL (8-26) 16 mg/dL (8-26) Creatinine 1.1 mg/dL (0.7-1.3) 1.1 mg/dL (0.7-1.3) 1.0 mg/dL (0.7-1.3) Estimated GFR (Cockcroft-Gault) 78.7 78.7 87.9 BUN/Creatinine Ratio 13 (6-20) Glucose Level 96 mg/dL (70-99) 103 mg/dL (70-99) 79 mg/dL (70-99) Calcium Level 9.0 mg/dL (8.5-10.1) 8.3 mg/dL (8.5-10.1) 8.1 mg/dL (8.5-10.1) Magnesium Level 2.1 mg/dL (1.8-2.4) 2.0 mg/dL (1.8-2.4) Total Bilirubin 0.7 mg/dL (0.2-1.0) Aspartate Amino Transf (AST/SGOT) 16 U/L (15-37) Alanine Aminotransferase (ALT/SGPT) 12 U/L (16-63) Alkaline Phosphatase 91 U/L (46-116) Creatine Kinase 50 U/L (39-308) Troponin I Quantitative < 0.017 ng/mL (0.000-0.055) DV-Qxz-K-Type Natriuretic Peptide 233 pg/mL (0-449) Total Protein 7.3 g/dL (6.4-8.2) Albumin 3.3 g/dL (3.4-5.0) Albumin/Globulin Ratio 0.8 (1.0-1.7) Vitamin B12 Level 794 pg/mL (247-911) Thyroid Stimulating Hormone (TSH) 0.081 uIU/mL (0.358-3.74) Urine Collection Type Unknown Urine Color Yellow Urine Clarity Clear Urine pH 6.0 Urine Specific [place] 1.025 Urine Protein Negative mg/dL (NEG-TRACE) Urine Glucose (UA) Negative mg/dL (NEG) Urine Ketones (Stick) 15 mg/dL (NEG) Urine Blood Negative (NEG) Urine Nitrite Negative (NEG) Urine Bilirubin Small (NEG) Urine Urobilinogen Dipstick 0.2 mg/dL (0.2 mg/dL) Urine Leukocyte Esterase Negative (NEG) Urine RBC Occ /HPF (0-2) Urine WBC 0 /HPF (0-4) Urine Squamous Epithelial Cells Few /LPF Urine Bacteria 0 /HPF (0-FEW) Urine Hyaline Casts Few /HPF Urine Mucus Marked /LPF Urine Opiates Screen Neg (NEG) Urine Methadone Screen Neg (NEG) Urine Barbiturates Neg (NEG) Urine Phencyclidine Screen Neg (NEG) Urine Amphetamine/Methamphetamine Neg (NEG) Urine Benzodiazepines Screen Neg (NEG) Urine Cocaine Screen Neg (NEG) Urine Cannabinoids Screen Neg (NEG) Urine Ethyl Alcohol Neg (NEG) Free Thyroxine 1.27 ng/dL (0.76-1.46) Free Triiodothyronine (T3) pg/mL 2.58 pg/mL (2.18-3.98) Laboratory Tests Test 01/25/19 12:45 01/26/19 06:30 Sodium Level 142 mmol/L (136-145) 144 mmol/L (136-145) Potassium Level 4.2 mmol/L (3.5-5.1) 4.1 mmol/L (3.5-5.1) Chloride Level 105 mmol/L (98-107) 108 mmol/L (98-107) Carbon Dioxide Level 28 mmol/L (21-32) 28 mmol/L (21-32) Anion Gap 9 (6-14) 8 (6-14) Blood Urea Nitrogen 14 mg/dL (8-26) 16 mg/dL (8-26) Creatinine 1.1 mg/dL (0.7-1.3) 1.0 mg/dL (0.7-1.3) Estimated GFR (Cockcroft-Gault) 78.7 87.9 Glucose Level 103 mg/dL (70-99) 79 mg/dL (70-99) Calcium Level 8.3 mg/dL (8.5-10.1) 8.1 mg/dL (8.5-10.1) Magnesium Level 2.0 mg/dL (1.8-2.4) Free Thyroxine 1.27 ng/dL (0.76-1.46) Free Triiodothyronine (T3) pg/mL 2.58 pg/mL (2.18-3.98) White Blood Count 4.5 x10^3/uL (4.0-11.0) Red Blood Count 4.30 x10^6/uL (4.30-5.70) Hemoglobin 8.9 g/dL (13.0-17.5) Hematocrit 29.0 % (39.0-53.0) Mean Corpuscular Volume 68 fL (79-100) Mean Corpuscular Hemoglobin 21 pg (25-35) Mean Corpuscular Hemoglobin Concent 31 g/dL (31-37) Red Cell Distribution Width 23.2 % (11.5-14.5) Platelet Count 252 x10^3/uL (140-400) Neutrophils (%) (Auto) 30 % (31-73) Lymphocytes (%) (Auto) 51 % (24-48) Monocytes (%) (Auto) 10 % (0-9) Eosinophils (%) (Auto) 8 % (0-3) Basophils (%) (Auto) 1 % (0-3) Neutrophils # (Auto) 1.3 x10^3uL (1.8-7.7) Lymphocytes # (Auto) 2.3 x10^3/uL (1.0-4.8) Monocytes # (Auto) 0.5 x10^3/uL (0.0-1.1) Eosinophils # (Auto) 0.4 x10^3/uL (0.0-0.7) Basophils # (Auto) 0.0 x10^3/uL (0.0-0.2) Medications Current Medications Meclizine HCl (Antivert) 25 mg 1X ONCE PO Last administered on 01/24/19 13:00 ; Start 01/24/19 at 12:15; Stop 01/24/19 at 12:16; Status DC Albuterol Sulfate (Ventolin Neb Soln) 2.5 mg RTQID NEB Last administered on 01/24 17:09; Start 01/24/19 at 20:00; Stop 01/24/19 at 20:00; Status DC Albuterol Sulfate (Ventolin Neb Soln) 2.5 mg PRN Q4HRS PRN NEB SHORTNESS OF BREATH Last administered on 01/26/19 02:43; Start 01/24/19 at 17:15 Pharmacy Consult (C.diff Med Screen By Rx) 1 each 1X ONCE [facility] Last administered on 01/24/19at 17:45; Start 01/24/19 at 17:45; Stop 01/24/19 at 17:46; Status DC Clopidogrel Bisulfate (Plavix) 75 mg DAILY PO Last administered on 01/26/19 08 :25; Start 01/24/19 at 18:30 Digoxin (Lanoxin) 125 mcg DAILY PO Last administered on 01/26/19 08:24; Start 01/25/19 at 09:00 Doxycycline Hyclate (Vibra-Tab) 100 mg BID PO ; Start 01/24/19 at 21:00; Status UNV Gabapentin (Neurontin) 300 mg PRN TID PRN PO NEUROPATHIC PAIN; Start 01/24/19 at 18:00 Albuterol/ Ipratropium (Duoneb) 3 ml QIDPRN PRN NEB SHORTNESS OF BREATH; Start 01/24/19 at 18:00; Status UNV Albuterol/ Ipratropium (Duoneb) 3 ml RTQID NEB Last administered on 01/26/19at 06:29; Start 01/24/19 at 20:00 Rivaroxaban (Xarelto) 20 mg DAILYWSUP PO Last administered on 01/25/19at 20:37; Start 01/25/19 at 19:00 Trazodone HCl (Desyrel) 100 mg QHS PO Last administered on 01/25/19at 20:37; Start 01/24/19 at 21:00 Info (Anti-Coagulation Monitoring By Pharmacy) 1 each PRN DAILY PRN [facility] SEE COMMENTS; Start 01/24/19 at 19:45 Sodium Chloride 1,000 ml @ 75 mls/hr [id number] IV Last administered on 01/25/19at 20:39; Start 01/25/19 at 10:00 Diphenhydramine HCl (Benadryl) 25 mg 1X ONCE PO ; Start 01/25/19 at 11:30; Stop 01/25/19 at 11:31; Status Cancel Diphenhydramine HCl (Benadryl Oral Elixir) 12.5 mg 1X ONCE PO Last administered on 01/25/19at 12:17; Start 01/25/19 at 11:30; Stop 01/25/19 at 11:31; Status DC Fludrocortisone Acetate (Florinef) 0.1 mg DAILY PO Last administered on at 08:25; Start 01/25/19 at 14:30 Budesonide (Pulmicort) 0.5 mg RTBID NEB Last administered on 01/26/19at 06:29; Start 01/25/19 at 20:00 Midodrine (Proamatine) 2.5 mg [id number] PO Last administered on 01/26/19at 06:22; Start 01/25/19 at 19:00 Active Scripts Active Doxycycline Hyclate 100 Mg Tablet 1 Tab PO BID 3 Days Betapace (Sotalol Hcl) 80 Mg Tablet 40 Mg PO BID 30 Days Duoneb 0.5-3(2.5) Mg/3 Ml (Albuterol/Ipratropium) 3 Ml Ampul.neb 3 Ml NEB RTQID 30 Days Vitamin B-1 (Thiamine Mononitrate) 100 Mg Tablet 100 Mg PO DAILY 30 Days [Pantoprazole] 40 MG Tablet.dr 40 Mg PO DAILYAC 30 Days Proair Hfa Inhaler (Albuterol Sulfate) 8.5 Gm Hfa.aer.ad 1 Puff INH PRN Q6HRS PRN Reported Trazodone Hcl 100 Mg Tablet 100 Mg PO QHS Oxycodone Hcl 20 Mg Tablet 20 Mg PO TID PRN PRN Duoneb 0.5-3(2.5) Mg/3 Ml (Albuterol/Ipratropium) 3 Ml Ampul.neb 3 Ml NEB QIDPRN PRN Remeron (Mirtazapine) 15 Mg Tablet 1 Tab PO QHS Xarelto (Rivaroxaban) 15 Mg Tablet 20 Mg PO HS Simvastatin 20 Mg Tablet 1 Tab PO QHS Gabapentin (Gabapentin) 300 Mg Capsule 300 Mg PO PRN TID PRN can take 1 or 2 capsules Plavix (Clopidogrel Bisulfate) 75 Mg Tablet 75 Mg PO DAILY Digoxin 125 Mcg Tablet 125 Mcg PO DAILY Vitals/I & O Vital Sign - Last 24 Hours 01/25/19 01/25/19 01/25/19 01/25/19 14:20 14:23 14:26 14:30 Temp 98.9 98.9 Pulse 91 83 92 101 Resp 20 B/P (MAP) 103/62 (76) 93/71 (78) 75/49 (58) 108/65 (79) Pulse Ox 95 94 O2 Delivery Room Air Room Air Room Air Room Air 01/25/19 01/25/19 01/25/19 01/26/19 19:28 20:05 23:09 02:44 Temp 99.7 98.5 99.7 98.5 Pulse 81 92 Resp 16 16 B/P (MAP) 129/78 (95) 96/53 (67) Pulse Ox 94 91 93 O2 Delivery Room Air Room Air Room Air Room Air 01/26/19 01/26/19 01/26/19 01/26/19 03:37 06:22 06:29 07:00 Temp 98.2 98.6 98.2 98.6 Pulse 78 75 86 Resp 16 18 B/P (MAP) 119/73 (88) 112/73 98/64 (75) Pulse Ox 95 94 98 O2 Delivery Room Air Nasal Cannula Nasal Cannula O2 Flow Rate 2.0 2.0 01/26/19 01/26/19 08:00 08:24 Pulse 86 B/P (MAP) 98/64 O2 Delivery Room Air Intake and Output 01/25/19 01/25/19 01/26/19 15:00 23:00 07:00 Intake Total 740 ml 400 ml 240 ml Output Total 500 ml Balance 240 ml 400 ml 240 ml Nutrition Consultation Dietary Evaluation: Recommendations by RD: Increase Calorie Intake, Protein supplementation Comments: ensure tid Expected Outcomes/Goals: to meet > 75% est nutr needs Interpretation of weight loss: >20% in 1 year Malnutrition Findings: Food and Nutrition Intake (Mod: <75% est energy req 7days Weight Status: Underweight ANGEL BOTELLO MD Jan 26, 2019 10:43
[2019-01-26 11:01] LABS: % BANDS 2 % (0-9); % BASOS 1 % (0-3); % EOS 13 % (0-5); % LYMPHS 40 % (24-48); % MONOS 10 % (0-10); % SEGS 34 % (35-66)
[2019-01-26 11:02] LABS: HYPOCHROMIA MARKED; PLT ESTIMATE ADEQUATE (ADEQUATE)
[2019-01-26 11:03] LABS: ACANTHOCYTES PRESENT; ANISOCYTOSIS MOD; MICROCYTOSIS MOD; OVALOCYTES PRESENT; POIKILOCYTOSIS MOD; SCHISTOCYTES FEW
[2019-01-26 11:04] LABS: BIZZARE CELLS PRESENT
--- NOTE | 2019-01-26 11:51 | PDOC ---
CARDIO Progress Notes Date and Time Date of Service 01/26/2019 Time of Evaluation 1130 Subjective Subjective: No Chest Pain, No Palpitations, Other (stil dizzy when upright, some SOA) Vitals Vitals Vital Signs Date Time Temp Pulse Resp B/P (MAP) Pulse Ox O2 Delivery O2 Flow Rate FiO2 01/26/19 11:12 95/50 (65) 01/26/19 11:00 98.9 75 18 95 Nasal Cannula 2.0 98.9 Weight Weight [ ] Input and Output Intake and Output Intake and Output 01/26/19 07:00 Intake Total 1380 ml Output Total 500 ml Balance 880 ml Intake Oral 1380 ml Output Urine Total 500 ml # Voids 2 # Bowel Movements 1 Laboratory Labs Laboratory Tests Test 01/25/19 12:45 01/26/19 06:30 Sodium Level 142 mmol/L (136-145) 144 mmol/L (136-145) Potassium Level 4.2 mmol/L (3.5-5.1) 4.1 mmol/L (3.5-5.1) Chloride Level 105 mmol/L (98-107) 108 mmol/L (98-107) Carbon Dioxide Level 28 mmol/L (21-32) 28 mmol/L (21-32) Anion Gap 9 (6-14) 8 (6-14) Blood Urea Nitrogen 14 mg/dL (8-26) 16 mg/dL (8-26) Creatinine 1.1 mg/dL (0.7-1.3) 1.0 mg/dL (0.7-1.3) Estimated GFR (Cockcroft-Gault) 78.7 87.9 Glucose Level 103 mg/dL (70-99) 79 mg/dL (70-99) Calcium Level 8.3 mg/dL (8.5-10.1) 8.1 mg/dL (8.5-10.1) Magnesium Level 2.0 mg/dL (1.8-2.4) Free Thyroxine 1.27 ng/dL (0.76-1.46) Free Triiodothyronine (T3) pg/mL 2.58 pg/mL (2.18-3.98) White Blood Count 4.5 x10^3/uL (4.0-11.0) Red Blood Count 4.30 x10^6/uL (4.30-5.70) Hemoglobin 8.9 g/dL (13.0-17.5) Hematocrit 29.0 % (39.0-53.0) Mean Corpuscular Volume 68 fL (79-100) Mean Corpuscular Hemoglobin 21 pg (25-35) Mean Corpuscular Hemoglobin Concent 31 g/dL (31-37) Red Cell Distribution Width 23.2 % (11.5-14.5) Platelet Count 252 x10^3/uL (140-400) Neutrophils (%) (Auto) 30 % (31-73) Lymphocytes (%) (Auto) 51 % (24-48) Monocytes (%) (Auto) 10 % (0-9) Eosinophils (%) (Auto) 8 % (0-3) Basophils (%) (Auto) 1 % (0-3) Neutrophils # (Auto) 1.3 x10^3uL (1.8-7.7) Lymphocytes # (Auto) 2.3 x10^3/uL (1.0-4.8) Monocytes # (Auto) 0.5 x10^3/uL (0.0-1.1) Eosinophils # (Auto) 0.4 x10^3/uL (0.0-0.7) Basophils # (Auto) 0.0 x10^3/uL (0.0-0.2) Segmented Neutrophils % 34 % (35-66) Band Neutrophils % 2 % (0-9) Lymphocytes % 40 % (24-48) Monocytes % 10 % (0-10) Eosinophils % 13 % (0-5) Basophils % 1 % (0-3) Platelet Estimate Adequate (ADEQUATE) Hypochromasia Marked Poikilocytosis Mod Anisocytosis Mod Microcytosis Mod Ovalocytes Present Acanthocytes Present Schistocytes Few RBC Morphology Bizarre Forms Present Physical Exam HEENT: Neck Supple W Full Motion Chest: Symmetric LUNGS: Other (diffuse wheeze, diminished bases) Heart: RRR (SR) Abdomen: Soft N/T Extremities: No Edema, No Calf Tenderness Neurology: alert, oriented, follow commands Assessment Assessment 1. Presyncope due to known orthostasis, BP better. 2. AICD in situ: (MeeDoc), interrogated yesterday but unable to locate copy, will inquire. 3. Hx of NICM: compensated. NYHA 1-2. Recovered EF at 50-55% 4. PAFIB: atrial paced intermittent bursts of AFIB 5. HLP 6. s/p AAA, Iliac artery aneurysm repair. Stable. 7. AECOPD: more wheezy today with some SOA 8. Anemia: possibly hemodilutional Hgb 8.9 with IVF Recommendations 1. Continue with secondary prevention. Unable to tolerate abd binder. Slow positional changes 2. Place on florinef. Agree with low dose midodrine for now 3. PCXR, stopped IVF and encourage PO hydration 3. Continue xarelto for stroke prevention. Will discuss risks and benefits ASA vs xarelto given his high fall/injury risk prior to DC. 4. Continue digoxin. Would not be able to tolerate sotalol. Could consider transitioning to amiodarone if no previous issue with it for rhythm maintenance. 5. continue with orthostatic readings CRYSTAL BAUTISTA APRN Jan 26, 2019 11:51
--- NOTE | 2019-01-26 12:00 | NUR ---
SW following pt. Spoke with pt and about PT/OT recommendation for SNU. Pt refused SNU stated he has had two back surgeries in the past and 'he does not want anyone messing with his back or put belt on it to help him walk'. Pt states he does not leave his room and stays in bed most of the time. He reported he has two sisters who visit him and bring frozen food for him to warm up. Pt stated he does not plan on moving as much and likes to stay in his bed for majority of the day. SW encouraged pt about SNU and also discussed about HH but pt is declining at this time. Pt currently on oxygen and stated he does not use 02 at home. At this time, pt is wanting to go home with self care upon dc. Discussed with RN. Will continue to follow.
--- NOTE | 2019-01-26 13:42 | RAD ---
EXAM: CHEST 1 VIEW History: Congestive heart failure, COPD COMPARISON: 01/24/2017 TECHNIQUE: Single portable radiograph of the chest FINDINGS: The cardiac silhouette is unremarkable. . Cardiac pacer AICD is identified. The costophrenic sulci are clear and well demarcated. IMPRESSION: No radiographic evidence of an acute cardiopulmonary process. Electronically signed by: Elder Draper MD (01/26/2019 1:39 PM) [facility]
--- NOTE | 2019-01-26 14:34 | PDOC ---
PULMONARY PROGRESS NOTES Subjective c/o cough, no soa Vitals Vital Signs Date Time Temp Pulse Resp B/P (MAP) Pulse Ox O2 Delivery O2 Flow Rate FiO2 01/26/19 13:18 75 95/50 01/26/19 11:50 92 Room Air 01/26/19 11:00 98.9 18 2.0 98.9 General: Alert, No acute distress HEENT: Other Lungs: Wheezing Cardiovascular: S1, S2 Abdomen: Soft, Non-tender Extremities: No Edema Labs Laboratory Tests Test 01/24/19 18:30 01/25/19 12:45 01/26/19 06:30 Urine Collection Type Unknown Urine Color Yellow Urine Clarity Clear Urine pH 6.0 Urine Specific [place] 1.025 Urine Protein Negative mg/dL (NEG-TRACE) Urine Glucose (UA) Negative mg/dL (NEG) Urine Ketones (Stick) 15 mg/dL (NEG) Urine Blood Negative (NEG) Urine Nitrite Negative (NEG) Urine Bilirubin Small (NEG) Urine Urobilinogen Dipstick 0.2 mg/dL (0.2 mg/dL) Urine Leukocyte Esterase Negative (NEG) Urine RBC Occ /HPF (0-2) Urine WBC 0 /HPF (0-4) Urine Squamous Epithelial Cells Few /LPF Urine Bacteria 0 /HPF (0-FEW) Urine Hyaline Casts Few /HPF Urine Mucus Marked /LPF Urine Opiates Screen Neg (NEG) Urine Methadone Screen Neg (NEG) Urine Barbiturates Neg (NEG) Urine Phencyclidine Screen Neg (NEG) Urine Amphetamine/Methamphetamine Neg (NEG) Urine Benzodiazepines Screen Neg (NEG) Urine Cocaine Screen Neg (NEG) Urine Cannabinoids Screen Neg (NEG) Urine Ethyl Alcohol Neg (NEG) Sodium Level 142 mmol/L (136-145) 144 mmol/L (136-145) Potassium Level 4.2 mmol/L (3.5-5.1) 4.1 mmol/L (3.5-5.1) Chloride Level 105 mmol/L (98-107) 108 mmol/L (98-107) Carbon Dioxide Level 28 mmol/L (21-32) 28 mmol/L (21-32) Anion Gap 9 (6-14) 8 (6-14) Blood Urea Nitrogen 14 mg/dL (8-26) 16 mg/dL (8-26) Creatinine 1.1 mg/dL (0.7-1.3) 1.0 mg/dL (0.7-1.3) Estimated GFR (Cockcroft-Gault) 78.7 87.9 Glucose Level 103 mg/dL (70-99) 79 mg/dL (70-99) Calcium Level 8.3 mg/dL (8.5-10.1) 8.1 mg/dL (8.5-10.1) Magnesium Level 2.0 mg/dL (1.8-2.4) Free Thyroxine 1.27 ng/dL (0.76-1.46) Free Triiodothyronine (T3) pg/mL 2.58 pg/mL (2.18-3.98) White Blood Count 4.5 x10^3/uL (4.0-11.0) Red Blood Count 4.30 x10^6/uL (4.30-5.70) Hemoglobin 8.9 g/dL (13.0-17.5) Hematocrit 29.0 % (39.0-53.0) Mean Corpuscular Volume 68 fL (79-100) Mean Corpuscular Hemoglobin 21 pg (25-35) Mean Corpuscular Hemoglobin Concent 31 g/dL (31-37) Red Cell Distribution Width 23.2 % (11.5-14.5) Platelet Count 252 x10^3/uL (140-400) Neutrophils (%) (Auto) 30 % (31-73) Lymphocytes (%) (Auto) 51 % (24-48) Monocytes (%) (Auto) 10 % (0-9) Eosinophils (%) (Auto) 8 % (0-3) Basophils (%) (Auto) 1 % (0-3) Neutrophils # (Auto) 1.3 x10^3uL (1.8-7.7) Lymphocytes # (Auto) 2.3 x10^3/uL (1.0-4.8) Monocytes # (Auto) 0.5 x10^3/uL (0.0-1.1) Eosinophils # (Auto) 0.4 x10^3/uL (0.0-0.7) Basophils # (Auto) 0.0 x10^3/uL (0.0-0.2) Segmented Neutrophils % 34 % (35-66) Band Neutrophils % 2 % (0-9) Lymphocytes % 40 % (24-48) Monocytes % 10 % (0-10) Eosinophils % 13 % (0-5) Basophils % 1 % (0-3) Platelet Estimate Adequate (ADEQUATE) Hypochromasia Marked Poikilocytosis Mod Anisocytosis Mod Microcytosis Mod Ovalocytes Present Acanthocytes Present Schistocytes Few RBC Morphology Bizarre Forms Present Laboratory Tests Test 01/26/19 06:30 White Blood Count 4.5 x10^3/uL (4.0-11.0) Red Blood Count 4.30 x10^6/uL (4.30-5.70) Hemoglobin 8.9 g/dL (13.0-17.5) Hematocrit 29.0 % (39.0-53.0) Mean Corpuscular Volume 68 fL (79-100) Mean Corpuscular Hemoglobin 21 pg (25-35) Mean Corpuscular Hemoglobin Concent 31 g/dL (31-37) Red Cell Distribution Width 23.2 % (11.5-14.5) Platelet Count 252 x10^3/uL (140-400) Neutrophils (%) (Auto) 30 % (31-73) Lymphocytes (%) (Auto) 51 % (24-48) Monocytes (%) (Auto) 10 % (0-9) Eosinophils (%) (Auto) 8 % (0-3) Basophils (%) (Auto) 1 % (0-3) Neutrophils # (Auto) 1.3 x10^3uL (1.8-7.7) Lymphocytes # (Auto) 2.3 x10^3/uL (1.0-4.8) Monocytes # (Auto) 0.5 x10^3/uL (0.0-1.1) Eosinophils # (Auto) 0.4 x10^3/uL (0.0-0.7) Basophils # (Auto) 0.0 x10^3/uL (0.0-0.2) Segmented Neutrophils % 34 % (35-66) Band Neutrophils % 2 % (0-9) Lymphocytes % 40 % (24-48) Monocytes % 10 % (0-10) Eosinophils % 13 % (0-5) Basophils % 1 % (0-3) Platelet Estimate Adequate (ADEQUATE) Hypochromasia Marked Poikilocytosis Mod Anisocytosis Mod Microcytosis Mod Ovalocytes Present Acanthocytes Present Schistocytes Few RBC Morphology Bizarre Forms Present Sodium Level 144 mmol/L (136-145) Potassium Level 4.1 mmol/L (3.5-5.1) Chloride Level 108 mmol/L (98-107) Carbon Dioxide Level 28 mmol/L (21-32) Anion Gap 8 (6-14) Blood Urea Nitrogen 16 mg/dL (8-26) Creatinine 1.0 mg/dL (0.7-1.3) Estimated GFR (Cockcroft-Gault) 87.9 Glucose Level 79 mg/dL (70-99) Calcium Level 8.1 mg/dL (8.5-10.1) Medications Active Scripts Medications Dose Route/Sig Max Daily Dose Days Date Category Dose Instructions Doxycycline Hyclate 100 Mg Tablet 1 Tab PO BID 3 12/14/18 Rx Trazodone Hcl 100 Mg Tablet 100 Mg PO QHS 12/10/18 Reported Oxycodone Hcl 20 Mg Tablet 20 Mg PO TID PRN PRN 12/10/18 Reported Betapace (Sotalol Hcl) 80 Mg Tablet 40 Mg PO BID 30 11/05/18 Rx Duoneb 0.5-3(2.5) Mg/3 Ml (Albuterol/Ipratropium) 3 Ml Ampul.neb 3 Ml NEB RTQID 30 11/05/18 Rx Vitamin B-1 (Thiamine Mononitrate) 100 Mg Tablet 100 Mg PO DAILY 30 08/23/18 Rx [Pantoprazole] 40 MG Tablet.dr 40 Mg PO DAILYAC 30 08/23/18 Rx Duoneb 0.5-3(2.5) Mg/3 Ml (Albuterol/Ipratropium) 3 Ml Ampul.neb 3 Ml NEB QIDPRN PRN 08/16/18 Reported Remeron (Mirtazapine) 15 Mg Tablet 1 Tab PO QHS 08/16/18 Reported Proair Hfa Inhaler (Albuterol Sulfate) 8.5 Gm Hfa.aer.ad 1 Puff INH PRN Q6HRS PRN 07/01/18 Rx Xarelto (Rivaroxaban) 15 Mg Tablet 20 Mg PO HS 03/26/15 Reported Simvastatin 20 Mg Tablet 1 Tab PO QHS 10/18/14 Reported Gabapentin (Gabapentin) 300 Mg Capsule 300 Mg PO PRN TID PRN 01/29/14 Reported can take 1 or 2 capsules Plavix (Clopidogrel Bisulfate) 75 Mg Tablet 75 Mg PO DAILY 01/29/14 Reported Digoxin 125 Mcg Tablet 125 Mcg PO DAILY 01/29/14 Reported Impression . 1. Dizziness related to orthostasis. Cardiology has been following. 2. Dyspnea with faint bronchospasm related to acute exacerbation of chronic obstructive pulmonary disease. 3. No definite consolidation seen on the chest x-ray./ acute Bronchitis clinically Plan . 1. Continue with present bronchodilators with DuoNeb. 2. Add Pulmicort./ add solumedrol 3. Xarelto for AFib. 4. Monitoring of orthostasis closely per Cardiology. 5. Oxygen p.r.n. 6. Discussed with RN. 7. Add VERONICA Becker MD Jan 26, 2019 14:34
--- NOTE | 2019-01-26 14:49 | PDOC ---
PROGRESS NOTES Assessment Assessment Dizziness and light headiness x 6 months, worsen now.. Orthostatic hypotension. AFib. CAD. HTN. HLD. COPD. 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 Degenerative spine disease. RECOMMENDATIONS/PLAN: He has been on Xarelto 20 mg daily. He has been on Plavix 75 mg daily. No need for both, but per Cardiology. Midodrine 2.5 mg tid, avoid dosing close to bedtime. Maintain good hydration. LE stoking. Continue checking ortho BP and HR. OT/PT. HISTORY OF PRESENT ILLNESS This is a 78-year-old AA male patient with history of chronic dizziness, and light headiness for about 6 months. He came to the ER of [facility] on 01/24/19 stating his sympotms of dizziness and light headiness became worse especially when he moves his eyes up and extend his head back or when he is on upright position. He has been struggling with orthostasis. He had multiple episodes of dizziness primarily when standing up and multiple events of aborted fall as quickly got sit down. No focalized sensory or motor deficits. Past Medical History Cardiovascular: AFIB, CAD, CHF, HTN, [place], Hyperlipidemia, Other (abdominal aortic aneurysm) Pulmonary: Bronchitis, COPD CENTRAL NERVOUS SYSTEM: CVA, Periperal neuropathy (idiopathic, but has had positive ANAs and past), Other (Jhaveri's palsy) GI: Constipation, GERD Musculoskeletal: low back pain Renal/: Benign prostatic enlarg. Past Surgical History Pacemaker (defibrillator), CABG, Cataract Removal, Hernia Repair (hiatal and inguinal), Other (lumbar, coronary stent, repair of esophageal tear, knee, AAA repair) Family History Cancer Allergies Coded Allergies: Iodinated Contrast- Oral and IV Dye (Verified Allergy, Severe, anaphalaxis , short of air, 06/06/15) adhesive (Verified Allergy, Severe, PAINFUL SKIN IRRITATION , 06/06/15) latex (Verified Allergy, Intermediate, Hives, 06/06/15) ROS Patient denies fevers, chills, weight loss,angina, abdominal pain, change in bowels, or dysuria. Positive for dyspnea. 14-point review of systems is negative. Social History , occasionally drinks alcohol heavily but not in the past week, occasional tobacco use, retired MEDICATIONS: Refer to [facility] PHYSICAL EXAMINATION: General appearance is in subacute on chronic distress. HEENT: Normocephalic and nontraumatic. Eyes, nose, ears, and throat are unremarkable. Neck is supple. No lymphadenopathy. No bruits are heard over the carotid artery. No crepitus. Cardiovascular: S1, S2, seemed irregular rate and rhythm. Pulmonary: Clear to auscultation bilaterally. Abdomen: Bowel sounds are positive. Abdomen is soft, nontender, and nondistended. Extremities: No rash, lesions, or edema. No restriction of range of motion NEUROLOGICAL EXAMINATION: Awake. Oriented to time, place and person. PERRL. EOMI. CN: no focal findings. Muscle tone: within normal. Muscle strength: 4+ DTR: 2- Plantar reflex: Neutral response bilaterally Gait: not examined in bed. Sensory exam: no abnormal findings. No cerebellar signs elicited. F-T-N test fine. Objective Objective Vital Signs Date Time Temp Pulse Resp B/P (MAP) Pulse Ox O2 Delivery O2 Flow Rate FiO2 01/26/19 13:18 75 95/50 01/26/19 11:50 92 Room Air 01/26/19 11:00 98.9 18 2.0 98.9 Intake and Output 01/26/19 06:59 Intake Total 1380 ml Output Total 500 ml Balance 880 ml Intake Oral 1380 ml Output Urine Total 500 ml # Voids 2 # Bowel Movements 1 Vitals Signs Vitals VS - Last 72 Hours, by Label Date Time Temp Pulse Resp B/P (MAP) Pulse Ox O2 Delivery O2 Flow Rate FiO2 01/26/19 13:18 75 95/50 01/26/19 11:50 92 Room Air 01/26/19 11:12 95/50 (65) 01/26/19 11:11 102/68 (79) 01/26/19 11:00 98.9 75 18 110/66 (81) 95 Nasal Cannula 2.0 98.9 01/26/19 08:24 86 98/64 01/26/19 08:00 Room Air 01/26/19 07:00 98.6 86 18 98/64 (75) 98 Nasal Cannula 2.0 98.6 01/26/19 06:29 94 Nasal Cannula 2.0 01/26/19 06:22 75 112/73 01/26/19 03:37 98.2 78 16 119/73 (88) 95 Room Air 98.2 4/10/19 02:44 93 Room Air 01/25/19 23:09 98.5 92 16 96/53 (67) 91 Room Air 98.5 01/25/19 20:05 Room Air 01/25/19 19:28 99.7 81 16 129/78 (95) 94 Room Air 99.7 01/25/19 14:30 101 108/65 (79) Room Air 01/25/19 14:26 92 75/49 (58) Room Air 01/25/19 14:23 83 93/71 (78) 94 Room Air 01/25/19 14:20 98.9 91 20 103/62 (76) 95 Room Air 98.9 01/25/19 10:36 90/60 (70) Room Air 01/25/19 10:34 01/25/19 10:32 95/62 (73) Room Air 01/25/19 10:30 76 94/67 (76) 94 Room Air 01/25/19 08:48 96 2.0 01/25/19 08:41 84 126/86 01/25/19 08:00 Nasal Cannula 2.0 01/25/19 07:09 98.2 84 20 126/86 (99) 98 Nasal Cannula 2.0 98.2 Laboratory Laboratory Laboratory Tests Test 01/26/19 06:30 White Blood Count 4.5 x10^3/uL (4.0-11.0) Red Blood Count 4.30 x10^6/uL (4.30-5.70) Hemoglobin 8.9 g/dL (13.0-17.5) Hematocrit 29.0 % (39.0-53.0) Mean Corpuscular Volume 68 fL (79-100) Mean Corpuscular Hemoglobin 21 pg (25-35) Mean Corpuscular Hemoglobin Concent 31 g/dL (31-37) Red Cell Distribution Width 23.2 % (11.5-14.5) Platelet Count 252 x10^3/uL (140-400) Neutrophils (%) (Auto) 30 % (31-73) Lymphocytes (%) (Auto) 51 % (24-48) Monocytes (%) (Auto) 10 % (0-9) Eosinophils (%) (Auto) 8 % (0-3) Basophils (%) (Auto) 1 % (0-3) Neutrophils # (Auto) 1.3 x10^3uL (1.8-7.7) Lymphocytes # (Auto) 2.3 x10^3/uL (1.0-4.8) Monocytes # (Auto) 0.5 x10^3/uL (0.0-1.1) Eosinophils # (Auto) 0.4 x10^3/uL (0.0-0.7) Basophils # (Auto) 0.0 x10^3/uL (0.0-0.2) Segmented Neutrophils % 34 % (35-66) Band Neutrophils % 2 % (0-9) Lymphocytes % 40 % (24-48) Monocytes % 10 % (0-10) Eosinophils % 13 % (0-5) Basophils % 1 % (0-3) Platelet Estimate Adequate (ADEQUATE) Hypochromasia Marked Poikilocytosis Mod Anisocytosis Mod Microcytosis Mod Ovalocytes Present Acanthocytes Present Schistocytes Few RBC Morphology Bizarre Forms Present Sodium Level 144 mmol/L (136-145) Potassium Level 4.1 mmol/L (3.5-5.1) Chloride Level 108 mmol/L (98-107) Carbon Dioxide Level 28 mmol/L (21-32) Anion Gap 8 (6-14) Blood Urea Nitrogen 16 mg/dL (8-26) Creatinine 1.0 mg/dL (0.7-1.3) Estimated GFR (Cockcroft-Gault) 87.9 Glucose Level 79 mg/dL (70-99) Calcium Level 8.1 mg/dL (8.5-10.1) Medication Medications Current Medications Budesonide (Pulmicort) 0.5 mg RTBID NEB Last administered on 01/26/19at 06:29; Start 01/25/19 at 20:00 Ceftriaxone Sodium (Rocephin) 1 gm Q24H IVP ; Start 01/26/19 at 15:00 Methylprednisolone Sodium Succinate (SOLU-Medrol 40MG VIAL) 40 mg Q8HRS IV ; Start 01/26/19 at 15:00 Midodrine (Proamatine) 2.5 mg [id number] PO Last administered on 01/26/19at 13:18; Start 01/25/19 at 19:00 Rivaroxaban (Xarelto) 20 mg [id number] PO Last administered on 01/25/19at 20:37; Start 01/25/19 at 19:00 Comment Review of Relevant I have reviewed the following items mckayla (where applicable) has been applied. PAUL FRENCH MD Jan 26, 2019 14:49
[2019-01-26] MEDS: diphenhydrAMINE ORAL ELIXIR 12.5 MG/5 ML ML PO PRN (16:24)
[2019-01-26] MEDS: methylPREDNISolone SOD SUCC PF 40 MG/ML VIAL. IV SCH ×2 (16:24→21:43)
[2019-01-26] MEDS: cefTRIAXone IV Push 1 GM VIAL. IVP SCH (16:25)
[2019-01-26] MEDS: RIVAROXABAN 10 MG TABLET. PO SCH (17:30)
[2019-01-26] MEDS: traZODone 100 MG TABLET. PO SCH (21:43)
[2019-01-27] VITALS (7 sets, daily range): BP systolic 109–132; BP diastolic 61–73
[2019-01-27] MEDS: ALBUTEROL SULFATE 2.5 MG/3 ML NEBU. NEB PRN ×2 (02:08→09:16)
[2019-01-27 04:26] LABS: BASO % 0 % (0-3); EOS % 0 % (0-3); HEMATOCRIT 28.6 % (39.0-53.0); HEMOGLOBIN 8.7 g/dL (13.0-17.5); LYMPH # 1.3 x10^3/uL (1.0-4.8); LYMPH % 38 % (24-48); MEAN CORPUSCULAR HEMOGLOBIN 20 pg (25-35); MEAN CORPUSCULAR HGB CONC 31 g/dL (31-37); MEAN CORPUSCULAR VOLUME 67 fL (79-100); MONO # 0.1 x10^3/uL (0.0-1.1); MONO % 2 % (0-9); NEUT # 2.1 x10^3uL (1.8-7.7); NEUT % 60 % (31-73); PLATELET COUNT 282 x10^3/uL (140-400); RED BLOOD COUNT 4.27 x10^6/uL (4.30-5.70); RED CELL DISTRIBUTION WIDTH 23.2 % (11.5-14.5); WHITE BLOOD COUNT 3.5 x10^3/uL (4.0-11.0)
[2019-01-27 04:49] LABS: ALBUMIN 2.9 g/dL (3.4-5.0); ALBUMIN/GLOBULIN RATIO 0.8 (1.0-1.7); CALCIUM 8.6 mg/dL (8.5-10.1); CREATININE 0.9 mg/dL (0.7-1.3); POTASSIUM 4.1 mmol/L (3.5-5.1); TOTAL BILIRUBIN 0.3 mg/dL (0.2-1.0); TOTAL PROTEIN 6.5 g/dL (6.4-8.2)
[2019-01-27] MEDS: methylPREDNISolone SOD SUCC PF 40 MG/ML VIAL. IV SCH ×3 (06:04→21:08)
[2019-01-27] MEDS: MIDODRINE 2.5 MG TABLET PO SCH ×3 (06:07→18:37)
[2019-01-27] MEDS: BUDESONIDE 0.5 MG/2 ML NEBU. NEB SCH ×2 (06:29→20:16)
[2019-01-27] MEDS: IPRATRPIUM/ALBUTEROL 0.5/2.5MG 3 ML NEBU. NEB SCH ×4 (06:29→20:16)
[2019-01-27] MEDS: DIGOXIN 125 MCG TABLET. PO SCH (09:52)
[2019-01-27] MEDS: FLUDROCORTISONE 0.1 MG TABLET PO SCH (09:52)
[2019-01-27] MEDS: CLOPIDOGREL BISULFATE 75 MG TABLET PO SCH (09:52)
--- NOTE | 2019-01-27 10:16 | PDOC ---
PROGRESS NOTES Subjective Subjective He admits continued dizziness while up. Objective Objective Vital Signs Date Time Temp Pulse Resp B/P (MAP) Pulse Ox O2 Delivery O2 Flow Rate FiO2 01/27/19 09:52 89 132/63 01/27/19 09:17 Nasal Cannula 2.0 01/27/19 07:00 98.0 18 97 98.0 Intake and Output 01/27/19 07:00 Intake Total 440 ml Balance 440 ml Intake Oral 440 ml # Voids 7 Physical Exam Physical Exam He is alert and in no acute distress and he is using oxygen by nasal canula and he is independent with his mobility and self care. His dizziness is most probably from orthostatic hypotension,but his oxygen desaturation on room air and his cervical spine DDD and DJD changes are also contributing to his dizziness. Assessment Assessment Problems Medical Problems: (1) Anemia Status: Acute (2) Atrial fibrillation Status: Acute Plan Plan of Assisted with home health when his orthostatic hypotension is under better control and he is not interested in any injections to his neck and low back. He probably needs home oxygen at time of discharge. Comment Review of Relevant I have reviewed the following items mckayla (where applicable) has been applied. Labs Laboratory Tests Test 01/25/19 12:45 01/26/19 06:30 01/27/19 03:20 Sodium Level 142 mmol/L (136-145) 144 mmol/L (136-145) 141 mmol/L (136-145) Potassium Level 4.2 mmol/L (3.5-5.1) 4.1 mmol/L (3.5-5.1) 4.1 mmol/L (3.5-5.1) Chloride Level 105 mmol/L (98-107) 108 mmol/L (98-107) 105 mmol/L (98-107) Carbon Dioxide Level 28 mmol/L (21-32) 28 mmol/L (21-32) 25 mmol/L (21-32) Anion Gap 9 (6-14) 8 (6-14) 11 (6-14) Blood Urea Nitrogen 14 mg/dL (8-26) 16 mg/dL (8-26) 16 mg/dL (8-26) Creatinine 1.1 mg/dL (0.7-1.3) 1.0 mg/dL (0.7-1.3) 0.9 mg/dL (0.7-1.3) Estimated GFR (Cockcroft-Gault) 78.7 87.9 99.0 Glucose Level 103 mg/dL (70-99) 79 mg/dL (70-99) 170 mg/dL (70-99) Calcium Level 8.3 mg/dL (8.5-10.1) 8.1 mg/dL (8.5-10.1) 8.6 mg/dL (8.5-10.1) Magnesium Level 2.0 mg/dL (1.8-2.4) Free Thyroxine 1.27 ng/dL (0.76-1.46) Free Triiodothyronine (T3) pg/mL 2.58 pg/mL (2.18-3.98) White Blood Count 4.5 x10^3/uL (4.0-11.0) 3.5 x10^3/uL (4.0-11.0) Red Blood Count 4.30 x10^6/uL (4.30-5.70) 4.27 x10^6/uL (4.30-5.70) Hemoglobin 8.9 g/dL (13.0-17.5) 8.7 g/dL (13.0-17.5) Hematocrit 29.0 % (39.0-53.0) 28.6 % (39.0-53.0) Mean Corpuscular Volume 68 fL (79-100) 67 fL (79-100) Mean Corpuscular Hemoglobin 21 pg (25-35) 20 pg (25-35) Mean Corpuscular Hemoglobin Concent 31 g/dL (31-37) 31 g/dL (31-37) Red Cell Distribution Width 23.2 % (11.5-14.5) 23.2 % (11.5-14.5) Platelet Count 252 x10^3/uL (140-400) 282 x10^3/uL (140-400) Neutrophils (%) (Auto) 30 % (31-73) 60 % (31-73) Lymphocytes (%) (Auto) 51 % (24-48) 38 % (24-48) Monocytes (%) (Auto) 10 % (0-9) 2 % (0-9) Eosinophils (%) (Auto) 8 % (0-3) 0 % (0-3) Basophils (%) (Auto) 1 % (0-3) 0 % (0-3) Neutrophils # (Auto) 1.3 x10^3uL (1.8-7.7) 2.1 x10^3uL (1.8-7.7) Lymphocytes # (Auto) 2.3 x10^3/uL (1.0-4.8) 1.3 x10^3/uL (1.0-4.8) Monocytes # (Auto) 0.5 x10^3/uL (0.0-1.1) 0.1 x10^3/uL (0.0-1.1) Eosinophils # (Auto) 0.4 x10^3/uL (0.0-0.7) 0.0 x10^3/uL (0.0-0.7) Basophils # (Auto) 0.0 x10^3/uL (0.0-0.2) 0.0 x10^3/uL (0.0-0.2) Segmented Neutrophils % 34 % (35-66) Band Neutrophils % 2 % (0-9) Lymphocytes % 40 % (24-48) Monocytes % 10 % (0-10) Eosinophils % 13 % (0-5) Basophils % 1 % (0-3) Platelet Estimate Adequate (ADEQUATE) Hypochromasia Marked Poikilocytosis Mod Anisocytosis Mod Microcytosis Mod Ovalocytes Present Acanthocytes Present Schistocytes Few RBC Morphology Bizarre Forms Present BUN/Creatinine Ratio 18 (6-20) Total Bilirubin 0.3 mg/dL (0.2-1.0) Aspartate Amino Transf (AST/SGOT) 13 U/L (15-37) Alanine Aminotransferase (ALT/SGPT) 11 U/L (16-63) Alkaline Phosphatase 75 U/L (46-116) Total Protein 6.5 g/dL (6.4-8.2) Albumin 2.9 g/dL (3.4-5.0) Albumin/Globulin Ratio 0.8 (1.0-1.7) Laboratory Tests Test 01/27/19 03:20 White Blood Count 3.5 x10^3/uL (4.0-11.0) Red Blood Count 4.27 x10^6/uL (4.30-5.70) Hemoglobin 8.7 g/dL (13.0-17.5) Hematocrit 28.6 % (39.0-53.0) Mean Corpuscular Volume 67 fL (79-100) Mean Corpuscular Hemoglobin 20 pg (25-35) Mean Corpuscular Hemoglobin Concent 31 g/dL (31-37) Red Cell Distribution Width 23.2 % (11.5-14.5) Platelet Count 282 x10^3/uL (140-400) Neutrophils (%) (Auto) 60 % (31-73) Lymphocytes (%) (Auto) 38 % (24-48) Monocytes (%) (Auto) 2 % (0-9) Eosinophils (%) (Auto) 0 % (0-3) Basophils (%) (Auto) 0 % (0-3) Neutrophils # (Auto) 2.1 x10^3uL (1.8-7.7) Lymphocytes # (Auto) 1.3 x10^3/uL (1.0-4.8) Monocytes # (Auto) 0.1 x10^3/uL (0.0-1.1) Eosinophils # (Auto) 0.0 x10^3/uL (0.0-0.7) Basophils # (Auto) 0.0 x10^3/uL (0.0-0.2) Sodium Level 141 mmol/L (136-145) Potassium Level 4.1 mmol/L (3.5-5.1) Chloride Level 105 mmol/L (98-107) Carbon Dioxide Level 25 mmol/L (21-32) Anion Gap 11 (6-14) Blood Urea Nitrogen 16 mg/dL (8-26) Creatinine 0.9 mg/dL (0.7-1.3) Estimated GFR (Cockcroft-Gault) 99.0 BUN/Creatinine Ratio 18 (6-20) Glucose Level 170 mg/dL (70-99) Calcium Level 8.6 mg/dL (8.5-10.1) Total Bilirubin 0.3 mg/dL (0.2-1.0) Aspartate Amino Transf (AST/SGOT) 13 U/L (15-37) Alanine Aminotransferase (ALT/SGPT) 11 U/L (16-63) Alkaline Phosphatase 75 U/L (46-116) Total Protein 6.5 g/dL (6.4-8.2) Albumin 2.9 g/dL (3.4-5.0) Albumin/Globulin Ratio 0.8 (1.0-1.7) Medications Current Medications Meclizine HCl (Antivert) 25 mg 1X ONCE PO Last administered on 01/24/19 13:00 ; Start 01/24/19 at 12:15; Stop 01/24/19 at 12:16; Status DC Albuterol Sulfate (Ventolin Neb Soln) 2.5 mg RTQID NEB Last administered on 01/24 17:09; Start 01/24/19 at 20:00; Stop 01/24/19 at 20:00; Status DC Albuterol Sulfate (Ventolin Neb Soln) 2.5 mg PRN Q4HRS PRN NEB SHORTNESS OF BREATH Last administered on 01/27/19at 09:16; Start 01/24/19 at 17:15 Pharmacy Consult (C.diff Med Screen By Rx) 1 each 1X ONCE [facility] Last administered on 01/24/19at 17:45; Start 01/24/19 at 17:45; Stop 01/24/19 at 17:46; Status DC Clopidogrel Bisulfate (Plavix) 75 mg DAILY PO Last administered on 01/27/19 09 :52; Start 01/24/19 at 18:30 Digoxin (Lanoxin) 125 mcg DAILY PO Last administered on 01/27/19 09:52; Start 01/25/19 at 09:00 Doxycycline Hyclate (Vibra-Tab) 100 mg BID PO ; Start 01/24/19 at 21:00; Status UNV Gabapentin (Neurontin) 300 mg PRN TID PRN PO NEUROPATHIC PAIN; Start 01/24/19 at 18:00 Albuterol/ Ipratropium (Duoneb) 3 ml QIDPRN PRN NEB SHORTNESS OF BREATH; Start 01/24/19 at 18:00; Status UNV Albuterol/ Ipratropium (Duoneb) 3 ml RTQID NEB Last administered on 01/27/19at 06:29; Start 01/24/19 at 20:00 Rivaroxaban (Xarelto) 20 mg DAILYWSUP PO Last administered on 01/26/19 17:30; Start 01/25/19 at 19:00 Trazodone HCl (Desyrel) 100 mg QHS PO Last administered on 01/26/19 21:43; Start 01/24/19 at 21:00 Info (Anti-Coagulation Monitoring By Pharmacy) 1 each PRN DAILY PRN [facility] SEE COMMENTS; Start 01/24/19 at 19:45 Sodium Chloride 1,000 ml @ 75 mls/hr [id number] IV Last administered on 01/25/19 20:39; Start 01/25/19 at 10:00; Stop 01/26/19 at 11:51; Status DC Diphenhydramine HCl (Benadryl) 25 mg 1X ONCE PO ; Start 01/25/19 at 11:30; Stop 01/25/19 at 11:31; Status Cancel Diphenhydramine HCl (Benadryl Oral Elixir) 12.5 mg 1X ONCE PO Last administered on 01/25/19 12:17; Start 01/25/19 at 11:30; Stop 01/25/19 at 11:31; Status DC Fludrocortisone Acetate (Florinef) 0.1 mg DAILY PO Last administered on 09:52; Start 01/25/19 at 14:30 Budesonide (Pulmicort) 0.5 mg RTBID NEB Last administered on 01/27/19 06:29; Start 01/25/19 at 20:00 Midodrine (Proamatine) 2.5 mg [id number] PO Last administered on 01/27/19 06:07; Start 01/25/19 at 19:00 Methylprednisolone Sodium Succinate (SOLU-Medrol 40MG VIAL) 40 mg Q8HRS IV Last administered on 01/27/19at 06:04; Start 01/26/19 at 15:00 Ceftriaxone Sodium (Rocephin) 1 gm Q24H IVP Last administered on 01/26/19 16: 25; Start 01/26/19 at 15:00 Diphenhydramine HCl (Benadryl Oral Elixir) 12.5 mg PRN Q6HRS PRN PO ITCHING Last administered on 01/26/19 16:24; Start 01/26/19 at 15:45 Active Scripts Active Doxycycline Hyclate 100 Mg Tablet 1 Tab PO BID 3 Days Betapace (Sotalol Hcl) 80 Mg Tablet 40 Mg PO BID 30 Days Duoneb 0.5-3(2.5) Mg/3 Ml (Albuterol/Ipratropium) 3 Ml Ampul.neb 3 Ml NEB RTQID 30 Days Vitamin B-1 (Thiamine Mononitrate) 100 Mg Tablet 100 Mg PO DAILY 30 Days [Pantoprazole] 40 MG Tablet.dr 40 Mg PO DAILYAC 30 Days Proair Hfa Inhaler (Albuterol Sulfate) 8.5 Gm Hfa.aer.ad 1 Puff INH PRN Q6HRS PRN Reported Trazodone Hcl 100 Mg Tablet 100 Mg PO QHS Oxycodone Hcl 20 Mg Tablet 20 Mg PO TID PRN PRN Duoneb 0.5-3(2.5) Mg/3 Ml (Albuterol/Ipratropium) 3 Ml Ampul.neb 3 Ml NEB QIDPRN PRN Remeron (Mirtazapine) 15 Mg Tablet 1 Tab PO QHS Xarelto (Rivaroxaban) 15 Mg Tablet 20 Mg PO HS Simvastatin 20 Mg Tablet 1 Tab PO QHS Gabapentin (Gabapentin) 300 Mg Capsule 300 Mg PO PRN TID PRN can take 1 or 2 capsules Plavix (Clopidogrel Bisulfate) 75 Mg Tablet 75 Mg PO DAILY Digoxin 125 Mcg Tablet 125 Mcg PO DAILY Vitals/I & O Vital Sign - Last 24 Hours 01/26/19 01/26/19 01/26/19 01/26/19 11:00 11:11 11:12 11:50 Temp 98.9 98.9 Pulse 75 Resp 18 B/P (MAP) 110/66 (81) 102/68 (79) 95/50 (65) Pulse Ox 95 92 O2 Delivery Nasal Cannula Room Air O2 Flow Rate 2.0 01/26/19 01/26/19 01/26/19 01/26/19 13:18 15:00 16:19 17:31 Temp 98.9 98.9 Pulse 75 92 78 Resp 18 B/P (MAP) 95/50 122/67 (85) 131/80 Pulse Ox 99 95 O2 Delivery Nasal Cannula Nasal Cannula O2 Flow Rate 2.0 2.0 01/26/19 01/26/19 01/26/19 01/26/19 19:05 20:33 20:35 23:12 Temp 99.0 98.9 99.0 98.9 Pulse 85 81 Resp 16 16 B/P (MAP) 133/77 (95) 130/74 (92) Pulse Ox 98 96 96 96 O2 Delivery Nasal Cannula Nasal Cannula Nasal Cannula Nasal Cannula O2 Flow Rate 2.0 2.0 2.0 2.0 01/27/19 01/27/19 01/27/19 01/27/19 02:08 03:40 06:07 06:30 Temp 97.7 97.7 Pulse 87 74 Resp 16 B/P (MAP) 129/71 (90) 142/73 Pulse Ox 94 O2 Delivery Nasal Cannula Nasal Cannula Nasal Cannula O2 Flow Rate 2.0 2.0 2.0 01/27/19 01/27/19 01/27/19 01/27/19 06:30 07:00 09:17 09:52 Temp 98.0 98.0 Pulse 89 89 Resp 18 B/P (MAP) 132/63 (86) 132/63 Pulse Ox 97 O2 Delivery Nasal Cannula Room Air Nasal Cannula O2 Flow Rate 2.0 2.0 2.0 Intake and Output 01/26/19 01/26/19 01/27/19 15:00 23:00 07:00 Intake Total 240 ml 200 ml Balance 240 ml 200 ml Nutrition Consultation Dietary Evaluation: Recommendations by RD: Increase Calorie Intake, Protein supplementation Comments: ensure tid Expected Outcomes/Goals: to meet > 75% est nutr needs Interpretation of weight loss: >20% in 1 year Malnutrition Findings: Food and Nutrition Intake (Mod: <75% est energy req 7days Weight Status: Underweight CESILIA MURPHY MD Jan 27, 2019 10:16
--- NOTE | 2019-01-27 10:38 | PDOC ---
PROGRESS NOTES History of Present Illness History of Present Illness ASSESSMENT PLAN: Dizziness and orthostasis. persistent, slow to improve COPD CHF s/p AICD - per cardiology - recent RV lead replacement due to lead fracture 11/02/2018. NYHA 1-2. Recovered EF at 50-55% AFIB - HX On sotalol and xarelto as well as digoxin. statin S/p AAA, Iliac artery aneurysm repair. DR CAAL DUE FOR F/U he cannot visit their office due to intractable severe pain bifurcated endograft hx Abdominal aortic aneurysm measuring up to 3.3 cm diameter. This is moderate to significantly decreased as compared to 06/06/2015 CTA of the abdomen and pelvis No Doppler evidence of hemodynamically significant stenosis within the carotid or vertebral arteries. C3-C4: There is a posterior disc osteophyte complex asymmetric to the right. There is severe bilateral facet arthropathy, right greater than left. There is moderate right and mild left uncovertebral joint disease. There is severe right and moderate left neuroforaminal stenosis. MICROCYTIC ANEMIA plan Pulmicort./ cont solumedrol, no dose change TODAY , has cough, PERSISTENT wheezing admitted. FESO4 325 MG PO DAILY consult dr nguyen consult Neurology, normal saline 75 an hour. D/C home meds, PT, OT. Full code. DVT prophylaxis, frequent labs, SNU eval. CARDIOLOGY EVAL CONSIDER JOBST stocking stop the xarelto and place on ASA cervical spine DDD and DJD changes are also contributing to his dizziness. 01/25 PT HYPOTENSIVE 01/25 WITH BP 90/60 at high fall risk due to orthostasis 37 min pt exam, chart review, > 50% of time spent with exam, chart review pt care coordination Vitals Vitals Vital Signs Date Time Temp Pulse Resp B/P (MAP) Pulse Ox O2 Delivery O2 Flow Rate FiO2 01/27/19 09:52 89 132/63 01/27/19 09:17 Nasal Cannula 2.0 01/27/19 07:00 98.0 18 97 98.0 Physical Exam General: Alert, Oriented X3, Cooperative, No acute distress Heart: Regular rate (atrial paced), Normal S1, Normal S2, Other (2/6 systolic murmur to LLS border) Lungs: Wheezing Abdomen: Soft, No tenderness Extremities: No cyanosis, No edema Skin: No breakdown, No significant lesion Labs LABS Laboratory Tests Test 01/27/19 03:20 White Blood Count 3.5 x10^3/uL (4.0-11.0) Red Blood Count 4.27 x10^6/uL (4.30-5.70) Hemoglobin 8.7 g/dL (13.0-17.5) Hematocrit 28.6 % (39.0-53.0) Mean Corpuscular Volume 67 fL (79-100) Mean Corpuscular Hemoglobin 20 pg (25-35) Mean Corpuscular Hemoglobin Concent 31 g/dL (31-37) Red Cell Distribution Width 23.2 % (11.5-14.5) Platelet Count 282 x10^3/uL (140-400) Neutrophils (%) (Auto) 60 % (31-73) Lymphocytes (%) (Auto) 38 % (24-48) Monocytes (%) (Auto) 2 % (0-9) Eosinophils (%) (Auto) 0 % (0-3) Basophils (%) (Auto) 0 % (0-3) Neutrophils # (Auto) 2.1 x10^3uL (1.8-7.7) Lymphocytes # (Auto) 1.3 x10^3/uL (1.0-4.8) Monocytes # (Auto) 0.1 x10^3/uL (0.0-1.1) Eosinophils # (Auto) 0.0 x10^3/uL (0.0-0.7) Basophils # (Auto) 0.0 x10^3/uL (0.0-0.2) Sodium Level 141 mmol/L (136-145) Potassium Level 4.1 mmol/L (3.5-5.1) Chloride Level 105 mmol/L (98-107) Carbon Dioxide Level 25 mmol/L (21-32) Anion Gap 11 (6-14) Blood Urea Nitrogen 16 mg/dL (8-26) Creatinine 0.9 mg/dL (0.7-1.3) Estimated GFR (Cockcroft-Gault) 99.0 BUN/Creatinine Ratio 18 (6-20) Glucose Level 170 mg/dL (70-99) Calcium Level 8.6 mg/dL (8.5-10.1) Total Bilirubin 0.3 mg/dL (0.2-1.0) Aspartate Amino Transf (AST/SGOT) 13 U/L (15-37) Alanine Aminotransferase (ALT/SGPT) 11 U/L (16-63) Alkaline Phosphatase 75 U/L (46-116) Total Protein 6.5 g/dL (6.4-8.2) Albumin 2.9 g/dL (3.4-5.0) Albumin/Globulin Ratio 0.8 (1.0-1.7) Assessment and Plan Assessmemt and Plan Problems Medical Problems: (1) Anemia Status: Acute (2) Atrial fibrillation Status: Acute Comment Review of Relevant I have reviewed the following items mckayla (where applicable) has been applied. Labs Laboratory Tests Test 01/25/19 12:45 01/26/19 06:30 01/27/19 03:20 Sodium Level 142 mmol/L (136-145) 144 mmol/L (136-145) 141 mmol/L (136-145) Potassium Level 4.2 mmol/L (3.5-5.1) 4.1 mmol/L (3.5-5.1) 4.1 mmol/L (3.5-5.1) Chloride Level 105 mmol/L (98-107) 108 mmol/L (98-107) 105 mmol/L (98-107) Carbon Dioxide Level 28 mmol/L (21-32) 28 mmol/L (21-32) 25 mmol/L (21-32) Anion Gap 9 (6-14) 8 (6-14) 11 (6-14) Blood Urea Nitrogen 14 mg/dL (8-26) 16 mg/dL (8-26) 16 mg/dL (8-26) Creatinine 1.1 mg/dL (0.7-1.3) 1.0 mg/dL (0.7-1.3) 0.9 mg/dL (0.7-1.3) Estimated GFR (Cockcroft-Gault) 78.7 87.9 99.0 Glucose Level 103 mg/dL (70-99) 79 mg/dL (70-99) 170 mg/dL (70-99) Calcium Level 8.3 mg/dL (8.5-10.1) 8.1 mg/dL (8.5-10.1) 8.6 mg/dL (8.5-10.1) Magnesium Level 2.0 mg/dL (1.8-2.4) Free Thyroxine 1.27 ng/dL (0.76-1.46) Free Triiodothyronine (T3) pg/mL 2.58 pg/mL (2.18-3.98) White Blood Count 4.5 x10^3/uL (4.0-11.0) 3.5 x10^3/uL (4.0-11.0) Red Blood Count 4.30 x10^6/uL (4.30-5.70) 4.27 x10^6/uL (4.30-5.70) Hemoglobin 8.9 g/dL (13.0-17.5) 8.7 g/dL (13.0-17.5) Hematocrit 29.0 % (39.0-53.0) 28.6 % (39.0-53.0) Mean Corpuscular Volume 68 fL (79-100) 67 fL (79-100) Mean Corpuscular Hemoglobin 21 pg (25-35) 20 pg (25-35) Mean Corpuscular Hemoglobin Concent 31 g/dL (31-37) 31 g/dL (31-37) Red Cell Distribution Width 23.2 % (11.5-14.5) 23.2 % (11.5-14.5) Platelet Count 252 x10^3/uL (140-400) 282 x10^3/uL (140-400) Neutrophils (%) (Auto) 30 % (31-73) 60 % (31-73) Lymphocytes (%) (Auto) 51 % (24-48) 38 % (24-48) Monocytes (%) (Auto) 10 % (0-9) 2 % (0-9) Eosinophils (%) (Auto) 8 % (0-3) 0 % (0-3) Basophils (%) (Auto) 1 % (0-3) 0 % (0-3) Neutrophils # (Auto) 1.3 x10^3uL (1.8-7.7) 2.1 x10^3uL (1.8-7.7) Lymphocytes # (Auto) 2.3 x10^3/uL (1.0-4.8) 1.3 x10^3/uL (1.0-4.8) Monocytes # (Auto) 0.5 x10^3/uL (0.0-1.1) 0.1 x10^3/uL (0.0-1.1) Eosinophils # (Auto) 0.4 x10^3/uL (0.0-0.7) 0.0 x10^3/uL (0.0-0.7) Basophils # (Auto) 0.0 x10^3/uL (0.0-0.2) 0.0 x10^3/uL (0.0-0.2) Segmented Neutrophils % 34 % (35-66) Band Neutrophils % 2 % (0-9) Lymphocytes % 40 % (24-48) Monocytes % 10 % (0-10) Eosinophils % 13 % (0-5) Basophils % 1 % (0-3) Platelet Estimate Adequate (ADEQUATE) Hypochromasia Marked Poikilocytosis Mod Anisocytosis Mod Microcytosis Mod Ovalocytes Present Acanthocytes Present Schistocytes Few RBC Morphology Bizarre Forms Present BUN/Creatinine Ratio 18 (6-20) Total Bilirubin 0.3 mg/dL (0.2-1.0) Aspartate Amino Transf (AST/SGOT) 13 U/L (15-37) Alanine Aminotransferase (ALT/SGPT) 11 U/L (16-63) Alkaline Phosphatase 75 U/L (46-116) Total Protein 6.5 g/dL (6.4-8.2) Albumin 2.9 g/dL (3.4-5.0) Albumin/Globulin Ratio 0.8 (1.0-1.7) Laboratory Tests Test 01/27/19 03:20 White Blood Count 3.5 x10^3/uL (4.0-11.0) Red Blood Count 4.27 x10^6/uL (4.30-5.70) Hemoglobin 8.7 g/dL (13.0-17.5) Hematocrit 28.6 % (39.0-53.0) Mean Corpuscular Volume 67 fL (79-100) Mean Corpuscular Hemoglobin 20 pg (25-35) Mean Corpuscular Hemoglobin Concent 31 g/dL (31-37) Red Cell Distribution Width 23.2 % (11.5-14.5) Platelet Count 282 x10^3/uL (140-400) Neutrophils (%) (Auto) 60 % (31-73) Lymphocytes (%) (Auto) 38 % (24-48) Monocytes (%) (Auto) 2 % (0-9) Eosinophils (%) (Auto) 0 % (0-3) Basophils (%) (Auto) 0 % (0-3) Neutrophils # (Auto) 2.1 x10^3uL (1.8-7.7) Lymphocytes # (Auto) 1.3 x10^3/uL (1.0-4.8) Monocytes # (Auto) 0.1 x10^3/uL (0.0-1.1) Eosinophils # (Auto) 0.0 x10^3/uL (0.0-0.7) Basophils # (Auto) 0.0 x10^3/uL (0.0-0.2) Sodium Level 141 mmol/L (136-145) Potassium Level 4.1 mmol/L (3.5-5.1) Chloride Level 105 mmol/L (98-107) Carbon Dioxide Level 25 mmol/L (21-32) Anion Gap 11 (6-14) Blood Urea Nitrogen 16 mg/dL (8-26) Creatinine 0.9 mg/dL (0.7-1.3) Estimated GFR (Cockcroft-Gault) 99.0 BUN/Creatinine Ratio 18 (6-20) Glucose Level 170 mg/dL (70-99) Calcium Level 8.6 mg/dL (8.5-10.1) Total Bilirubin 0.3 mg/dL (0.2-1.0) Aspartate Amino Transf (AST/SGOT) 13 U/L (15-37) Alanine Aminotransferase (ALT/SGPT) 11 U/L (16-63) Alkaline Phosphatase 75 U/L (46-116) Total Protein 6.5 g/dL (6.4-8.2) Albumin 2.9 g/dL (3.4-5.0) Albumin/Globulin Ratio 0.8 (1.0-1.7) Medications Current Medications Meclizine HCl (Antivert) 25 mg 1X ONCE PO Last administered on 01/24/19at 13:00 ; Start 01/24/19 at 12:15; Stop 01/24/19 at 12:16; Status DC Albuterol Sulfate (Ventolin Neb Soln) 2.5 mg RTQID NEB Last administered on 01/24 17:09; Start 01/24/19 at 20:00; Stop 01/24/19 at 20:00; Status DC Albuterol Sulfate (Ventolin Neb Soln) 2.5 mg PRN Q4HRS PRN NEB SHORTNESS OF BREATH Last administered on 01/27/19 09:16; Start 01/24/19 at 17:15 Pharmacy Consult (C.diff Med Screen By Rx) 1 each 1X ONCE [facility] Last administered on 01/24/19 17:45; Start 01/24/19 at 17:45; Stop 01/24/19 at 17:46; Status DC Clopidogrel Bisulfate (Plavix) 75 mg DAILY PO Last administered on 01/27/19 09 :52; Start 01/24/19 at 18:30 Digoxin (Lanoxin) 125 mcg DAILY PO Last administered on 01/27/19 09:52; Start 01/25/19 at 09:00 Doxycycline Hyclate (Vibra-Tab) 100 mg BID PO ; Start 01/24/19 at 21:00; Status UNV Gabapentin (Neurontin) 300 mg PRN TID PRN PO NEUROPATHIC PAIN; Start 01/24/19 at 18:00 Albuterol/ Ipratropium (Duoneb) 3 ml QIDPRN PRN NEB SHORTNESS OF BREATH; Start 01/24/19 at 18:00; Status UNV Albuterol/ Ipratropium (Duoneb) 3 ml RTQID NEB Last administered on 01/27/19at 06:29; Start 01/24/19 at 20:00 Rivaroxaban (Xarelto) 20 mg DAILYWSUP PO Last administered on 01/26/19 17:30; Start 01/25/19 at 19:00 Trazodone HCl (Desyrel) 100 mg QHS PO Last administered on 01/26/19 21:43; Start 01/24/19 at 21:00 Info (Anti-Coagulation Monitoring By Pharmacy) 1 each PRN DAILY PRN [facility] SEE COMMENTS; Start 01/24/19 at 19:45 Sodium Chloride 1,000 ml @ 75 mls/hr [id number] IV Last administered on 01/25/19at 20:39; Start 01/25/19 at 10:00; Stop 01/26/19 at 11:51; Status DC Diphenhydramine HCl (Benadryl) 25 mg 1X ONCE PO ; Start 01/25/19 at 11:30; Stop 01/25/19 at 11:31; Status Cancel Diphenhydramine HCl (Benadryl Oral Elixir) 12.5 mg 1X ONCE PO Last administered on 01/25/19at 12:17; Start 01/25/19 at 11:30; Stop 01/25/19 at 11:31; Status DC Fludrocortisone Acetate (Florinef) 0.1 mg DAILY PO Last administered on at 09:52; Start 01/25/19 at 14:30 Budesonide (Pulmicort) 0.5 mg RTBID NEB Last administered on 01/27/19at 06:29; Start 01/25/19 at 20:00 Midodrine (Proamatine) 2.5 mg [id number] PO Last administered on 01/27/19at 06:07; Start 01/25/19 at 19:00 Methylprednisolone Sodium Succinate (SOLU-Medrol 40MG VIAL) 40 mg Q8HRS IV Last administered on 01/27/19at 06:04; Start 01/26/19 at 15:00 Ceftriaxone Sodium (Rocephin) 1 gm Q24H IVP Last administered on 01/26/19at 16: 25; Start 01/26/19 at 15:00 Diphenhydramine HCl (Benadryl Oral Elixir) 12.5 mg PRN Q6HRS PRN PO ITCHING Last administered on 01/26/19at 16:24; Start 01/26/19 at 15:45 Active Scripts Active Doxycycline Hyclate 100 Mg Tablet 1 Tab PO BID 3 Days Betapace (Sotalol Hcl) 80 Mg Tablet 40 Mg PO BID 30 Days Duoneb 0.5-3(2.5) Mg/3 Ml (Albuterol/Ipratropium) 3 Ml Ampul.neb 3 Ml NEB RTQID 30 Days Vitamin B-1 (Thiamine Mononitrate) 100 Mg Tablet 100 Mg PO DAILY 30 Days [Pantoprazole] 40 MG Tablet.dr 40 Mg PO DAILYAC 30 Days Proair Hfa Inhaler (Albuterol Sulfate) 8.5 Gm Hfa.aer.ad 1 Puff INH PRN Q6HRS PRN Reported Trazodone Hcl 100 Mg Tablet 100 Mg PO QHS Oxycodone Hcl 20 Mg Tablet 20 Mg PO TID PRN PRN Duoneb 0.5-3(2.5) Mg/3 Ml (Albuterol/Ipratropium) 3 Ml Ampul.neb 3 Ml NEB QIDPRN PRN Remeron (Mirtazapine) 15 Mg Tablet 1 Tab PO QHS Xarelto (Rivaroxaban) 15 Mg Tablet 20 Mg PO HS Simvastatin 20 Mg Tablet 1 Tab PO QHS Gabapentin (Gabapentin) 300 Mg Capsule 300 Mg PO PRN TID PRN can take 1 or 2 capsules Plavix (Clopidogrel Bisulfate) 75 Mg Tablet 75 Mg PO DAILY Digoxin 125 Mcg Tablet 125 Mcg PO DAILY Vitals/I & O Vital Sign - Last 24 Hours 01/26/19 01/26/19 01/26/19 01/26/19 11:00 11:11 11:12 11:50 Temp 98.9 98.9 Pulse 75 Resp 18 B/P (MAP) 110/66 (81) 102/68 (79) 95/50 (65) Pulse Ox 95 92 O2 Delivery Nasal Cannula Room Air O2 Flow Rate 2.0 01/26/19 01/26/19 01/26/19 01/26/19 13:18 15:00 16:19 17:31 Temp 98.9 98.9 Pulse 75 92 78 Resp 18 B/P (MAP) 95/50 122/67 (85) 131/80 Pulse Ox 99 95 O2 Delivery Nasal Cannula Nasal Cannula O2 Flow Rate 2.0 2.0 01/26/19 01/26/19 01/26/19 01/26/19 19:05 20:33 20:35 23:12 Temp 99.0 98.9 99.0 98.9 Pulse 85 81 Resp 16 16 B/P (MAP) 133/77 (95) 130/74 (92) Pulse Ox 98 96 96 96 O2 Delivery Nasal Cannula Nasal Cannula Nasal Cannula Nasal Cannula O2 Flow Rate 2.0 2.0 2.0 2.0 01/27/19 01/27/19 01/27/19 01/27/19 02:08 03:40 06:07 06:30 Temp 97.7 97.7 Pulse 87 74 Resp 16 B/P (MAP) 129/71 (90) 142/73 Pulse Ox 94 O2 Delivery Nasal Cannula Nasal Cannula Nasal Cannula O2 Flow Rate 2.0 2.0 2.0 01/27/19 01/27/19 01/27/19 01/27/19 06:30 07:00 09:17 09:52 Temp 98.0 98.0 Pulse 89 89 Resp 18 B/P (MAP) 132/63 (86) 132/63 Pulse Ox 97 O2 Delivery Nasal Cannula Room Air Nasal Cannula O2 Flow Rate 2.0 2.0 2.0 Intake and Output 01/26/19 01/26/19 01/27/19 14:59 22:59 06:59 Intake Total 240 ml 200 ml Balance 240 ml 200 ml Nutrition Consultation Dietary Evaluation: Recommendations by RD: Increase Calorie Intake, Protein supplementation Comments: ensure tid Expected Outcomes/Goals: to meet > 75% est nutr needs Interpretation of weight loss: >20% in 1 year Malnutrition Findings: Food and Nutrition Intake (Mod: <75% est energy req 7days Weight Status: Underweight ANGEL BOTELLO MD Jan 27, 2019 10:37
--- NOTE | 2019-01-27 10:50 | PDOC ---
CARDIO Progress Notes Date and Time Date of Service 01/27/2019 Time of Evaluation 1040 Subjective Subjective: No Chest Pain, No shortness of breath, No Palpitations, Other ( still dizzy when upright) Vitals Vitals Vital Signs Date Time Temp Pulse Resp B/P (MAP) Pulse Ox O2 Delivery O2 Flow Rate FiO2 01/27/19 09:52 89 132/63 01/27/19 09:17 Nasal Cannula 2.0 01/27/19 07:00 98.0 18 97 98.0 Weight Weight [ ] Input and Output Intake and Output Intake and Output 01/27/19 06:59 Intake Total 440 ml Balance 440 ml Intake Oral 440 ml # Voids 7 Laboratory Labs Laboratory Tests Test 01/27/19 03:20 White Blood Count 3.5 x10^3/uL (4.0-11.0) Red Blood Count 4.27 x10^6/uL (4.30-5.70) Hemoglobin 8.7 g/dL (13.0-17.5) Hematocrit 28.6 % (39.0-53.0) Mean Corpuscular Volume 67 fL (79-100) Mean Corpuscular Hemoglobin 20 pg (25-35) Mean Corpuscular Hemoglobin Concent 31 g/dL (31-37) Red Cell Distribution Width 23.2 % (11.5-14.5) Platelet Count 282 x10^3/uL (140-400) Neutrophils (%) (Auto) 60 % (31-73) Lymphocytes (%) (Auto) 38 % (24-48) Monocytes (%) (Auto) 2 % (0-9) Eosinophils (%) (Auto) 0 % (0-3) Basophils (%) (Auto) 0 % (0-3) Neutrophils # (Auto) 2.1 x10^3uL (1.8-7.7) Lymphocytes # (Auto) 1.3 x10^3/uL (1.0-4.8) Monocytes # (Auto) 0.1 x10^3/uL (0.0-1.1) Eosinophils # (Auto) 0.0 x10^3/uL (0.0-0.7) Basophils # (Auto) 0.0 x10^3/uL (0.0-0.2) Sodium Level 141 mmol/L (136-145) Potassium Level 4.1 mmol/L (3.5-5.1) Chloride Level 105 mmol/L (98-107) Carbon Dioxide Level 25 mmol/L (21-32) Anion Gap 11 (6-14) Blood Urea Nitrogen 16 mg/dL (8-26) Creatinine 0.9 mg/dL (0.7-1.3) Estimated GFR (Cockcroft-Gault) 99.0 BUN/Creatinine Ratio 18 (6-20) Glucose Level 170 mg/dL (70-99) Calcium Level 8.6 mg/dL (8.5-10.1) Total Bilirubin 0.3 mg/dL (0.2-1.0) Aspartate Amino Transf (AST/SGOT) 13 U/L (15-37) Alanine Aminotransferase (ALT/SGPT) 11 U/L (16-63) Alkaline Phosphatase 75 U/L (46-116) Total Protein 6.5 g/dL (6.4-8.2) Albumin 2.9 g/dL (3.4-5.0) Albumin/Globulin Ratio 0.8 (1.0-1.7) Physical Exam HEENT: Neck Supple W Full Motion Chest: Symmetric LUNGS: Clear to Auscultation Heart: RRR (SR) Abdomen: Soft N/T Extremities: No Edema, No Calf Tenderness Neurology: alert, oriented, follow commands Assessment Assessment 1. Presyncope due to known orthostasis, still has orthostasis and with symptoms but BP range better 2. AICD in situ: ([employer]), interrogated yesterday but unable to locate copy, will inquire. 3. Hx of NICM: compensated. NYHA 1-2. Recovered EF at 50-55% 4. PAFIB: atrial paced intermittent with bursts of AFIB 5. HLP 6. s/p AAA, Iliac artery aneurysm repair. Stable. 7. AECOPD: better 8. Anemia: possibly hemodilutional Hgb 8.7 with IVF, will recheck INR Recommendations 1. Continue with secondary prevention. Unable to tolerate abd binder due to back issues. Slow positional changes 2. Remains with dizziness with positional changes which is likely an autonomic dysfunction issue. Florinef and low dose midodrine. will monitor BP trend as pt was noted with SH in the past 3. I discussed with him the risks and benefits of ASA and xarelto and equating the risk of potential injury with high risk for fall and he want s to stop the xarelto and be place on ASA for stroke prevention 4. Continue digoxin. Will start on amiodarone for rhythm maintenance since he would be unable to tolerate sotalol with his BP issues. 5. Continue with orthostatic readings CRYSTAL BAUTISTA APRN Jan 27, 2019 10:50
--- NOTE | 2019-01-27 12:20 | PDOC ---
PULMONARY PROGRESS NOTES Subjective has cough, nasal congestion. has some sob Vitals Vital Signs Date Time Temp Pulse Resp B/P (MAP) Pulse Ox O2 Delivery O2 Flow Rate FiO2 01/27/19 11:49 98 Nasal Cannula 2.0 01/27/19 11:00 98.2 98 18 129/73 (91) 98.2 ROS: No Nausea General: Alert, No acute distress HEENT: Other (nc at perrl ) Lungs: Wheezing Cardiovascular: S1, S2 Abdomen: Soft, Non-tender Neuro Exam: Alert Extremities: No Edema Skin: Warm Labs Laboratory Tests Test 01/25/19 12:45 01/26/19 06:30 01/27/19 03:20 01/27/19 11:30 Sodium Level 142 mmol/L (136-145) 144 mmol/L (136-145) 141 mmol/L (136-145) Potassium Level 4.2 mmol/L (3.5-5.1) 4.1 mmol/L (3.5-5.1) 4.1 mmol/L (3.5-5.1) Chloride Level 105 mmol/L (98-107) 108 mmol/L (98-107) 105 mmol/L (98-107) Carbon Dioxide Level 28 mmol/L (21-32) 28 mmol/L (21-32) 25 mmol/L (21-32) Anion Gap 9 (6-14) 8 (6-14) 11 (6-14) Blood Urea Nitrogen 14 mg/dL (8-26) 16 mg/dL (8-26) 16 mg/dL (8-26) Creatinine 1.1 mg/dL (0.7-1.3) 1.0 mg/dL (0.7-1.3) 0.9 mg/dL (0.7-1.3) Estimated GFR (Cockcroft-Gault) 78.7 87.9 99.0 Glucose Level 103 mg/dL (70-99) 79 mg/dL (70-99) 170 mg/dL (70-99) Calcium Level 8.3 mg/dL (8.5-10.1) 8.1 mg/dL (8.5-10.1) 8.6 mg/dL (8.5-10.1) Magnesium Level 2.0 mg/dL (1.8-2.4) Free Thyroxine 1.27 ng/dL (0.76-1.46) Free Triiodothyronine (T3) pg/mL 2.58 pg/mL (2.18-3.98) White Blood Count 4.5 x10^3/uL (4.0-11.0) 3.5 x10^3/uL (4.0-11.0) Red Blood Count 4.30 x10^6/uL (4.30-5.70) 4.27 x10^6/uL (4.30-5.70) Hemoglobin 8.9 g/dL (13.0-17.5) 8.7 g/dL (13.0-17.5) Hematocrit 29.0 % (39.0-53.0) 28.6 % (39.0-53.0) Mean Corpuscular Volume 68 fL (79-100) 67 fL (79-100) Mean Corpuscular Hemoglobin 21 pg (25-35) 20 pg (25-35) Mean Corpuscular Hemoglobin Concent 31 g/dL (31-37) 31 g/dL (31-37) Red Cell Distribution Width 23.2 % (11.5-14.5) 23.2 % (11.5-14.5) Platelet Count 252 x10^3/uL (140-400) 282 x10^3/uL (140-400) Neutrophils (%) (Auto) 30 % (31-73) 60 % (31-73) Lymphocytes (%) (Auto) 51 % (24-48) 38 % (24-48) Monocytes (%) (Auto) 10 % (0-9) 2 % (0-9) Eosinophils (%) (Auto) 8 % (0-3) 0 % (0-3) Basophils (%) (Auto) 1 % (0-3) 0 % (0-3) Neutrophils # (Auto) 1.3 x10^3uL (1.8-7.7) 2.1 x10^3uL (1.8-7.7) Lymphocytes # (Auto) 2.3 x10^3/uL (1.0-4.8) 1.3 x10^3/uL (1.0-4.8) Monocytes # (Auto) 0.5 x10^3/uL (0.0-1.1) 0.1 x10^3/uL (0.0-1.1) Eosinophils # (Auto) 0.4 x10^3/uL (0.0-0.7) 0.0 x10^3/uL (0.0-0.7) Basophils # (Auto) 0.0 x10^3/uL (0.0-0.2) 0.0 x10^3/uL (0.0-0.2) Segmented Neutrophils % 34 % (35-66) Band Neutrophils % 2 % (0-9) Lymphocytes % 40 % (24-48) Monocytes % 10 % (0-10) Eosinophils % 13 % (0-5) Basophils % 1 % (0-3) Platelet Estimate Adequate (ADEQUATE) Hypochromasia Marked Poikilocytosis Mod Anisocytosis Mod Microcytosis Mod Ovalocytes Present Acanthocytes Present Schistocytes Few RBC Morphology Bizarre Forms Present BUN/Creatinine Ratio 18 (6-20) Total Bilirubin 0.3 mg/dL (0.2-1.0) Aspartate Amino Transf (AST/SGOT) 13 U/L (15-37) Alanine Aminotransferase (ALT/SGPT) 11 U/L (16-63) Alkaline Phosphatase 75 U/L (46-116) Total Protein 6.5 g/dL (6.4-8.2) Albumin 2.9 g/dL (3.4-5.0) Albumin/Globulin Ratio 0.8 (1.0-1.7) Prothrombin Time 17.0 SEC (11.7-14.0) Prothromb Time International Ratio 1.4 (0.8-1.1) Laboratory Tests Test 01/27/19 03:20 01/27/19 11:30 White Blood Count 3.5 x10^3/uL (4.0-11.0) Red Blood Count 4.27 x10^6/uL (4.30-5.70) Hemoglobin 8.7 g/dL (13.0-17.5) Hematocrit 28.6 % (39.0-53.0) Mean Corpuscular Volume 67 fL (79-100) Mean Corpuscular Hemoglobin 20 pg (25-35) Mean Corpuscular Hemoglobin Concent 31 g/dL (31-37) Red Cell Distribution Width 23.2 % (11.5-14.5) Platelet Count 282 x10^3/uL (140-400) Neutrophils (%) (Auto) 60 % (31-73) Lymphocytes (%) (Auto) 38 % (24-48) Monocytes (%) (Auto) 2 % (0-9) Eosinophils (%) (Auto) 0 % (0-3) Basophils (%) (Auto) 0 % (0-3) Neutrophils # (Auto) 2.1 x10^3uL (1.8-7.7) Lymphocytes # (Auto) 1.3 x10^3/uL (1.0-4.8) Monocytes # (Auto) 0.1 x10^3/uL (0.0-1.1) Eosinophils # (Auto) 0.0 x10^3/uL (0.0-0.7) Basophils # (Auto) 0.0 x10^3/uL (0.0-0.2) Sodium Level 141 mmol/L (136-145) Potassium Level 4.1 mmol/L (3.5-5.1) Chloride Level 105 mmol/L (98-107) Carbon Dioxide Level 25 mmol/L (21-32) Anion Gap 11 (6-14) Blood Urea Nitrogen 16 mg/dL (8-26) Creatinine 0.9 mg/dL (0.7-1.3) Estimated GFR (Cockcroft-Gault) 99.0 BUN/Creatinine Ratio 18 (6-20) Glucose Level 170 mg/dL (70-99) Calcium Level 8.6 mg/dL (8.5-10.1) Total Bilirubin 0.3 mg/dL (0.2-1.0) Aspartate Amino Transf (AST/SGOT) 13 U/L (15-37) Alanine Aminotransferase (ALT/SGPT) 11 U/L (16-63) Alkaline Phosphatase 75 U/L (46-116) Total Protein 6.5 g/dL (6.4-8.2) Albumin 2.9 g/dL (3.4-5.0) Albumin/Globulin Ratio 0.8 (1.0-1.7) Prothrombin Time 17.0 SEC (11.7-14.0) Prothromb Time International Ratio 1.4 (0.8-1.1) Medications Active Scripts Medications Dose Route/Sig Max Daily Dose Days Date Category Dose Instructions Doxycycline Hyclate 100 Mg Tablet 1 Tab PO BID 3 12/14/18 Rx Trazodone Hcl 100 Mg Tablet 100 Mg PO QHS 12/10/18 Reported Oxycodone Hcl 20 Mg Tablet 20 Mg PO TID PRN PRN 12/10/18 Reported Betapace (Sotalol Hcl) 80 Mg Tablet 40 Mg PO BID 30 11/05/18 Rx Duoneb 0.5-3(2.5) Mg/3 Ml (Albuterol/Ipratropium) 3 Ml Ampul.neb 3 Ml NEB RTQID 30 11/05/18 Rx Vitamin B-1 (Thiamine Mononitrate) 100 Mg Tablet 100 Mg PO DAILY 30 08/23/18 Rx [Pantoprazole] 40 MG Tablet.dr 40 Mg PO DAILYAC 30 08/23/18 Rx Duoneb 0.5-3(2.5) Mg/3 Ml (Albuterol/Ipratropium) 3 Ml Ampul.neb 3 Ml NEB QIDPRN PRN 08/16/18 Reported Remeron (Mirtazapine) 15 Mg Tablet 1 Tab PO QHS 08/16/18 Reported Proair Hfa Inhaler (Albuterol Sulfate) 8.5 Gm Hfa.aer.ad 1 Puff INH PRN Q6HRS PRN 07/01/18 Rx Xarelto (Rivaroxaban) 15 Mg Tablet 20 Mg PO HS 03/26/15 Reported Simvastatin 20 Mg Tablet 1 Tab PO QHS 10/18/14 Reported Gabapentin (Gabapentin) 300 Mg Capsule 300 Mg PO PRN TID PRN 01/29/14 Reported can take 1 or 2 capsules Plavix (Clopidogrel Bisulfate) 75 Mg Tablet 75 Mg PO DAILY 01/29/14 Reported Digoxin 125 Mcg Tablet 125 Mcg PO DAILY 01/29/14 Reported Impression . 1. Dizziness related to orthostasis. Cardiology has been following. 2. Dyspnea with faint bronchospasm related to acute exacerbation of chronic obstructive pulmonary disease. 3. No definite consolidation seen on the chest x-ray./ acute Bronchitis clinically Plan . 1. Continue with present bronchodilators with DuoNeb. 2. Pulmicort./ cont solumedrol, no dose change, has cough, wheezing 3. Xarelto for AFib, per primary. 4. Monitoring of orthostasis closely per Cardiology. 5. Oxygen titration 6. add flonase. 7. cont Abx 8. Discussed with RN, pt. ALYSIA GARCIA MD Jan 27, 2019 12:20
[2019-01-27] MEDS: ASPIRIN ENTERIC COATED 81 MG TABLET.DR. PO SCH (14:24)
[2019-01-27] MEDS: AMIODARONE HCL 200 MG TABLET. PO SCH (14:25)
--- NOTE | 2019-01-27 15:46 | CONS ---
DATE OF CONSULTATION: 01/26/2019 ATTENDING PHYSICIAN: Dr. Ramirez. The patient was seen at the request of Dr. Alicea for rehab evaluation. HISTORY OF PRESENT ILLNESS: This is a 78-year-old male with chronic dizziness and lightheadedness going on for about 6 months, admitted to the Emergency Room on 01/24/2019, and he admits more dizziness when he extends his neck. He has been struggling with orthostasis, multiple episodes of dizziness primarily when standing up and multiple events of about 10 falls made him to sit down. 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 Garces with continued back pain and also some neck pain. The patient had radiological studies including CT scan of the brain, which failed to reveal any acute lesions other than again noted being old frontal infarct bilaterally, left greater than right side with cortical involvement. Carotid Doppler studies failed to reveal any significant stenotic disease. CT scan of cervical spine revealed multilevel degenerative disk disease and degenerative joint disease with some degree of neural foraminal and central spinal stenosis and straightening of cervical curvature. Scan of the abdomen aorta revealed abdominal aortic aneurysm measuring up to 3.3 cm diameter, this is moderate to significantly decreased as compared to study dated on 06/06/2015, CTA of the abdomen and pelvis. The patient denies any trouble with his bowel or bladder control, but admits to chronic back pain. The patient also with known chronic bronchitis, chronic obstructive pulmonary disease, previous myocardial infarction, peripheral neuropathy, Jhaveri palsy, constipation, gastroesophageal reflux disease, benign prostatic enlargement, status post permanent pacemaker with defibrillator placement, coronary artery bypass graft, cataract removal. Hernia repair, hiatal and inguinal. Coronary arterial stent, repair of esophageal tear, knee and abdominal aortic aneurysm repair. FAMILY HISTORY: Carcinoma. ALLERGIES: He IS KNOWN ALLERGIC TO IODINATED CONTRAST, ORAL AND IV DYE, ADHESIVE, LATEX. SOCIAL HISTORY: The patient lives alone, had two steps to enter the house. PHYSICAL EXAMINATION: Today revealed an elderly male. He is alert, oriented to time, place, person and circumstance, and he had painful limited movements of his cervical and lumbar spine with tenderness to palpation over posterior shoulder girdle muscles, over lumbar paraspinal muscles extending over to the lumbar spine and sacroiliac joint area and straight leg raising test is negative bilaterally. He had equal perception of touch and pinprick sensation bilaterally. Deep tendon reflexes are decreased overall with absent knee and ankle jerks. The patient had intact skin. His blood pressure while sitting is 105/65 mmHg and when he stood up, it dropped to 89/60 mmHg. The patient also had oxygen desaturation on room air, oxygen saturation goes down to 85% and with 2 liters of oxygen by nasal cannula, it got back to 97%. He is independent with bed mobility, transfers and up walking using a roller walker. 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 RECOMMENDATION: To try abdominal binder to help with his dizziness. To ask Physical Therapy and Occupational Therapy to see him. He had a lumbar corset in the past, but it did not help him much. Dr. Alicea, I appreciate asking me to participate in the care of this interesting patient. I will be glad to follow him with you as needed for the rehabilitation to consider trigger point injections to his lower back. He agrees to help ease his pain. CESILIA MURPHY MD DR: JIAN/tess JOB#: [id number] / [id number]
--- NOTE | 2019-01-27 16:46 | NUR ---
Sharmaine will do EEG tomorrow if MD wants pt to be sedated. Pt is agitated and moving around too much right now. Addendum: 01/27/19 at 1843 by ROSHNI OROURKE RN wrong pt.
[2019-01-27] MEDS: cefTRIAXone IV Push 1 GM VIAL. IVP SCH (17:06)
--- NOTE | 2019-01-27 18:08 | PDOC ---
PROGRESS NOTES Assessment Assessment Dizziness and light headiness x 6 months, worsen now.. Orthostatic hypotension. AFib. CAD. HTN. HLD. COPD. 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 Degenerative spine disease. RECOMMENDATIONS/PLAN: He has been on Plavix 75 mg daily. Midodrine 2.5 mg tid, avoid dosing close to bedtime. Maintain good hydration. Continue checking ortho BP and HR. OT/PT. HISTORY OF PRESENT ILLNESS This is a 78-year-old AA male patient with history of chronic dizziness, and light headiness for about 6 months. He came to the ER of [facility] on 01/24/19 stating his sympotms of dizziness and light headiness became worse especially when he moves his eyes up and extend his head back or when he is on upright position. He has been struggling with orthostasis. He had multiple episodes of dizziness primarily when standing up and multiple events of aborted fall as quickly got sit down. No focalized sensory or motor deficits. Past Medical History Cardiovascular: AFIB, CAD, CHF, HTN, UT, Hyperlipidemia, Other (abdominal aortic aneurysm) Pulmonary: Bronchitis, COPD CENTRAL NERVOUS SYSTEM: CVA, Periperal neuropathy (idiopathic, but has had positive ANAs and past), Other (Jhaveri's palsy) GI: Constipation, GERD Musculoskeletal: low back pain Renal/: Benign prostatic enlarg. Past Surgical History Pacemaker (defibrillator), CABG, Cataract Removal, Hernia Repair (hiatal and inguinal), Other (lumbar, coronary stent, repair of esophageal tear, knee, AAA repair) Family History Cancer Allergies Coded Allergies: Iodinated Contrast- Oral and IV Dye (Verified Allergy, Severe, anaphalaxis , short of air, 06/06/15) adhesive (Verified Allergy, Severe, PAINFUL SKIN IRRITATION , 06/06/15) latex (Verified Allergy, Intermediate, Hives, 06/06/15) ROS Patient denies fevers, chills, weight loss,angina, abdominal pain, change in bowels, or dysuria. Positive for dyspnea. 14-point review of systems is negative. Social History , occasionally drinks alcohol heavily but not in the past week, occasional tobacco use, retired MEDICATIONS: Refer to [facility] PHYSICAL EXAMINATION: General appearance is in subacute on chronic distress. HEENT: Normocephalic and nontraumatic. Eyes, nose, ears, and throat are unremarkable. Neck is supple. No lymphadenopathy. No bruits are heard over the carotid artery. No crepitus. Cardiovascular: S1, S2, seemed irregular rate and rhythm. Pulmonary: Clear to auscultation bilaterally. Abdomen: Bowel sounds are positive. Abdomen is soft, nontender, and nondistended. Extremities: No rash, lesions, or edema. No restriction of range of motion NEUROLOGICAL EXAMINATION: Awake. Oriented to time, place and person. PERRL. EOMI. CN: no focal findings. Muscle tone: within normal. Muscle strength: 4+ DTR: 2- Plantar reflex: Neutral response bilaterally Gait: not examined in bed. Sensory exam: no abnormal findings. No cerebellar signs elicited. F-T-N test fine. Objective Objective Vital Signs Date Time Temp Pulse Resp B/P (MAP) Pulse Ox O2 Delivery O2 Flow Rate FiO2 01/27/19 15:52 98 Nasal Cannula 2.0 01/27/19 15:00 98.0 91 18 109/61 (77) 98.0 Intake and Output 01/27/19 07:00 Intake Total 440 ml Balance 440 ml Intake Oral 440 ml # Voids 7 Vitals Signs Vitals VS - Last 72 Hours, by Label Date Time Temp Pulse Resp B/P (MAP) Pulse Ox O2 Delivery O2 Flow Rate FiO2 01/27/19 15:52 98 Nasal Cannula 2.0 01/27/19 15:00 98.0 91 18 109/61 (77) 98 Nasal Cannula 2.0 98.0 01/27/19 14:27 98 129/73 01/27/19 14:25 98 129/73 01/27/19 11:49 98 Nasal Cannula 2.0 01/27/19 11:00 98.2 98 18 129/73 (91) 98 Nasal Cannula 2.0 98.2 01/27/19 09:52 89 132/63 01/27/19 09:17 Nasal Cannula 2.0 01/27/19 07:00 98.0 89 18 132/63 (86) 97 Room Air 2.0 98.0 01/27/19 06:30 Nasal Cannula 2.0 01/27/19 06:30 Nasal Cannula 2.0 01/27/19 06:07 74 142/73 01/27/19 03:40 97.7 87 16 129/71 (90) 94 Nasal Cannula 2.0 97.7 01/27/19 02:08 Nasal Cannula 2.0 01/26/19 23:12 98.9 81 16 130/74 (92) 96 Nasal Cannula 2.0 98.9 01/26/19 20:35 96 Nasal Cannula 2.0 01/26/19 20:33 96 Nasal Cannula 2.0 01/26/19 19:05 99.0 85 16 133/77 (95) 98 Nasal Cannula 2.0 99.0 01/26/19 17:31 78 131/80 01/26/19 16:19 95 Nasal Cannula 2.0 01/26/19 15:00 98.9 92 18 122/67 (85) 99 Nasal Cannula 2.0 98.9 01/26/19 13:18 75 95/50 01/26/19 11:50 92 Room Air 01/26/19 11:12 95/50 (65) 01/26/19 11:11 102/68 (79) 01/26/19 11:00 98.9 75 18 110/66 (81) 95 Nasal Cannula 2.0 98.9 01/26/19 08:24 86 98/64 01/26/19 08:00 Room Air 01/26/19 07:00 98.6 86 18 98/64 (75) 98 Nasal Cannula 2.0 98.6 Laboratory Laboratory Laboratory Tests Test 01/27/19 03:20 01/27/19 11:30 White Blood Count 3.5 x10^3/uL (4.0-11.0) Red Blood Count 4.27 x10^6/uL (4.30-5.70) Hemoglobin 8.7 g/dL (13.0-17.5) Hematocrit 28.6 % (39.0-53.0) Mean Corpuscular Volume 67 fL (79-100) Mean Corpuscular Hemoglobin 20 pg (25-35) Mean Corpuscular Hemoglobin Concent 31 g/dL (31-37) Red Cell Distribution Width 23.2 % (11.5-14.5) Platelet Count 282 x10^3/uL (140-400) Neutrophils (%) (Auto) 60 % (31-73) Lymphocytes (%) (Auto) 38 % (24-48) Monocytes (%) (Auto) 2 % (0-9) Eosinophils (%) (Auto) 0 % (0-3) Basophils (%) (Auto) 0 % (0-3) Neutrophils # (Auto) 2.1 x10^3uL (1.8-7.7) Lymphocytes # (Auto) 1.3 x10^3/uL (1.0-4.8) Monocytes # (Auto) 0.1 x10^3/uL (0.0-1.1) Eosinophils # (Auto) 0.0 x10^3/uL (0.0-0.7) Basophils # (Auto) 0.0 x10^3/uL (0.0-0.2) Sodium Level 141 mmol/L (136-145) Potassium Level 4.1 mmol/L (3.5-5.1) Chloride Level 105 mmol/L (98-107) Carbon Dioxide Level 25 mmol/L (21-32) Anion Gap 11 (6-14) Blood Urea Nitrogen 16 mg/dL (8-26) Creatinine 0.9 mg/dL (0.7-1.3) Estimated GFR (Cockcroft-Gault) 99.0 BUN/Creatinine Ratio 18 (6-20) Glucose Level 170 mg/dL (70-99) Calcium Level 8.6 mg/dL (8.5-10.1) Total Bilirubin 0.3 mg/dL (0.2-1.0) Aspartate Amino Transf (AST/SGOT) 13 U/L (15-37) Alanine Aminotransferase (ALT/SGPT) 11 U/L (16-63) Alkaline Phosphatase 75 U/L (46-116) Total Protein 6.5 g/dL (6.4-8.2) Albumin 2.9 g/dL (3.4-5.0) Albumin/Globulin Ratio 0.8 (1.0-1.7) Prothrombin Time 17.0 SEC (11.7-14.0) Prothromb Time International Ratio 1.4 (0.8-1.1) Medication Medications Current Medications Amiodarone HCl (Cordarone) 200 mg DAILY PO Last administered on 01/27/19at 14:25 ; Start 01/27/19 at 11:45 Aspirin (Ecotrin) 81 mg DAILYWBKFT PO Last administered on 01/27/19at 14:24; Start 01/27/19 at 12:30 Fluticasone Propionate (Flonase) 2 spray DAILY NS ; Start 01/28/19 at 09:00 Lactobacillus Rhamnosus (Culturelle) 1 cap BID PO ; Start 01/27/19 at 21:00 Polysaccharide Iron Complex (Niferex 150) 150 mg DAILY PO ; Start 01/28/19 at 09 :00 Comment Review of Relevant I have reviewed the following items mckayla (where applicable) has been applied. PAUL FRENCH MD Jan 27, 2019 18:08
--- NOTE | 2019-01-27 18:39 | NUR ---
pt would like oxygen at home.
[2019-01-27] MEDS: traZODone 100 MG TABLET. PO SCH (21:08)
[2019-01-27] MEDS: LACTOBACILLUS RHAMNOSUS GG 1 CAPSULE. PO SCH (21:08)
[2019-01-27] MEDS: GABAPENTIN 300 MG CAPSULE. PO PRN (21:08)
[2019-01-27] MEDS: diphenhydrAMINE ORAL ELIXIR 12.5 MG/5 ML ML PO PRN (21:08)
[2019-01-28] VITALS (7 sets, daily range): BP systolic 102–134; BP diastolic 46–77
[2019-01-28] MEDS: MIDODRINE 2.5 MG TABLET PO SCH ×3 (06:14→18:00)
[2019-01-28] MEDS: methylPREDNISolone SOD SUCC PF 40 MG/ML VIAL. IV SCH (06:15)
[2019-01-28] MEDS: BUDESONIDE 0.5 MG/2 ML NEBU. NEB SCH ×2 (06:27→21:28)
[2019-01-28] MEDS: IPRATRPIUM/ALBUTEROL 0.5/2.5MG 3 ML NEBU. NEB SCH ×4 (06:27→21:27)
--- NOTE | 2019-01-28 07:14 | PDOC ---
PULMONARY PROGRESS NOTES Subjective sob, cough, nasal congestion improved Vitals Vital Signs Date Time Temp Pulse Resp B/P (MAP) Pulse Ox O2 Delivery O2 Flow Rate FiO2 01/28/19 06:25 Nasal Cannula 2.0 01/28/19 06:14 83 112/73 01/28/19 03:29 97.9 18 100 97.9 ROS: No Nausea General: Alert, No acute distress HEENT: Other (nc at perrl ) Lungs: Crackles Cardiovascular: S1, S2 Abdomen: Soft, Non-tender Neuro Exam: Alert Extremities: No Edema Skin: Warm Labs Laboratory Tests Test 01/27/19 03:20 01/27/19 11:30 01/27/19 19:59 White Blood Count 3.5 x10^3/uL (4.0-11.0) Red Blood Count 4.27 x10^6/uL (4.30-5.70) Hemoglobin 8.7 g/dL (13.0-17.5) Hematocrit 28.6 % (39.0-53.0) Mean Corpuscular Volume 67 fL (79-100) Mean Corpuscular Hemoglobin 20 pg (25-35) Mean Corpuscular Hemoglobin Concent 31 g/dL (31-37) Red Cell Distribution Width 23.2 % (11.5-14.5) Platelet Count 282 x10^3/uL (140-400) Neutrophils (%) (Auto) 60 % (31-73) Lymphocytes (%) (Auto) 38 % (24-48) Monocytes (%) (Auto) 2 % (0-9) Eosinophils (%) (Auto) 0 % (0-3) Basophils (%) (Auto) 0 % (0-3) Neutrophils # (Auto) 2.1 x10^3uL (1.8-7.7) Lymphocytes # (Auto) 1.3 x10^3/uL (1.0-4.8) Monocytes # (Auto) 0.1 x10^3/uL (0.0-1.1) Eosinophils # (Auto) 0.0 x10^3/uL (0.0-0.7) Basophils # (Auto) 0.0 x10^3/uL (0.0-0.2) Sodium Level 141 mmol/L (136-145) Potassium Level 4.1 mmol/L (3.5-5.1) Chloride Level 105 mmol/L (98-107) Carbon Dioxide Level 25 mmol/L (21-32) Anion Gap 11 (6-14) Blood Urea Nitrogen 16 mg/dL (8-26) Creatinine 0.9 mg/dL (0.7-1.3) Estimated GFR (Cockcroft-Gault) 99.0 BUN/Creatinine Ratio 18 (6-20) Glucose Level 170 mg/dL (70-99) Calcium Level 8.6 mg/dL (8.5-10.1) Total Bilirubin 0.3 mg/dL (0.2-1.0) Aspartate Amino Transf (AST/SGOT) 13 U/L (15-37) Alanine Aminotransferase (ALT/SGPT) 11 U/L (16-63) Alkaline Phosphatase 75 U/L (46-116) Total Protein 6.5 g/dL (6.4-8.2) Albumin 2.9 g/dL (3.4-5.0) Albumin/Globulin Ratio 0.8 (1.0-1.7) Prothrombin Time 17.0 SEC (11.7-14.0) Prothromb Time International Ratio 1.4 (0.8-1.1) Glucose (Fingerstick) 232 mg/dL (70-99) Laboratory Tests Test 01/27/19 11:30 01/27/19 19:59 Prothrombin Time 17.0 SEC (11.7-14.0) Prothromb Time International Ratio 1.4 (0.8-1.1) Glucose (Fingerstick) 232 mg/dL (70-99) Medications Active Scripts Medications Dose Route/Sig Max Daily Dose Days Date Category Dose Instructions Doxycycline Hyclate 100 Mg Tablet 1 Tab PO BID 3 12/14/18 Rx Trazodone Hcl 100 Mg Tablet 100 Mg PO QHS 12/10/18 Reported Oxycodone Hcl 20 Mg Tablet 20 Mg PO TID PRN PRN 12/10/18 Reported Betapace (Sotalol Hcl) 80 Mg Tablet 40 Mg PO BID 30 11/05/18 Rx Duoneb 0.5-3(2.5) Mg/3 Ml (Albuterol/Ipratropium) 3 Ml Ampul.neb 3 Ml NEB RTQID 30 11/05/18 Rx Vitamin B-1 (Thiamine Mononitrate) 100 Mg Tablet 100 Mg PO DAILY 30 08/23/18 Rx [Pantoprazole] 40 MG Tablet.dr 40 Mg PO DAILYAC 30 08/23/18 Rx Duoneb 0.5-3(2.5) Mg/3 Ml (Albuterol/Ipratropium) 3 Ml Ampul.neb 3 Ml NEB QIDPRN PRN 08/16/18 Reported Remeron (Mirtazapine) 15 Mg Tablet 1 Tab PO QHS 08/16/18 Reported Proair Hfa Inhaler (Albuterol Sulfate) 8.5 Gm Hfa.aer.ad 1 Puff INH PRN Q6HRS PRN 07/01/18 Rx Xarelto (Rivaroxaban) 15 Mg Tablet 20 Mg PO HS 03/26/15 Reported Simvastatin 20 Mg Tablet 1 Tab PO QHS 10/18/14 Reported Gabapentin (Gabapentin) 300 Mg Capsule 300 Mg PO PRN TID PRN 01/29/14 Reported can take 1 or 2 capsules Plavix (Clopidogrel Bisulfate) 75 Mg Tablet 75 Mg PO DAILY 01/29/14 Reported Digoxin 125 Mcg Tablet 125 Mcg PO DAILY 01/29/14 Reported Impression . 1. Dizziness related to orthostasis. Cardiology has been following. 2. Dyspnea with faint bronchospasm related to acute exacerbation of chronic obstructive pulmonary disease. 3. No definite consolidation seen on the chest x-ray./ acute Bronchitis clinically Plan . 1. Continue with present bronchodilators with DuoNeb. change solumedrol to prednisone 40 mg daily w taper by 10 mg q 3d 3. Xarelto for AFib, per primary. 4. Monitoring of orthostasis closely per Cardiology. 5. Oxygen titration 6. cont flonase. 7. cont Abx, may change to augmentin, total abx for 7 days 8. Discussed with RN, pt. ALYSIA GARCIA MD Jan 28, 2019 07:14
[2019-01-28] MEDS: POLYETHYLENE GLYCOL 3350 17 GM PACKET. PO SCH (08:36)
[2019-01-28] MEDS: DOCUSATE SODIUM 100 MG CAPSULE. PO SCH (08:38)
[2019-01-28] MEDS: FLUDROCORTISONE 0.1 MG TABLET PO SCH (08:38)
[2019-01-28] MEDS: predniSONE 20 MG TABLET PO SCH (08:38)
[2019-01-28] MEDS: LACTOBACILLUS RHAMNOSUS GG 1 CAPSULE. PO SCH ×2 (08:38→20:34)
[2019-01-28] MEDS: GABAPENTIN 300 MG CAPSULE. PO PRN ×2 (08:38→13:58)
[2019-01-28] MEDS: ASPIRIN ENTERIC COATED 81 MG TABLET.DR. PO SCH (08:38)
[2019-01-28] MEDS: FLUTICASONE 50MCG/NASAL SPRAY 16GM BOTTLE. NS SCH (08:38)
[2019-01-28] MEDS: IRON POLYSACCHARIDE COMPLEX 150 MG CAPSULE PO SCH (08:38)
[2019-01-28] MEDS: AMIODARONE HCL 200 MG TABLET. PO SCH (08:39)
[2019-01-28] MEDS: DIGOXIN 125 MCG TABLET. PO SCH (08:39)
[2019-01-28] MEDS: CLOPIDOGREL BISULFATE 75 MG TABLET PO SCH (08:39)
--- NOTE | 2019-01-28 10:25 | PDOC ---
PROGRESS NOTES History of Present Illness History of Present Illness ASSESSMENT PLAN: Dizziness and orthostasis. persistent, slow to improve COPD CHF s/p AICD - per cardiology - recent RV lead replacement due to lead fracture 11/02/2018. NYHA 1-2. Recovered EF at 50-55% AFIB - HX On sotalol and xarelto as well as digoxin. statin S/p AAA, Iliac artery aneurysm repair. DR CAAL DUE FOR F/U he cannot visit their office due to intractable severe pain bifurcated endograft hx Abdominal aortic aneurysm measuring up to 3.3 cm diameter. This is moderate to significantly decreased as compared to 06/06/2015 CTA of the abdomen and pelvis No Doppler evidence of hemodynamically significant stenosis within the carotid or vertebral arteries. C3-C4: There is a posterior disc osteophyte complex asymmetric to the right. There is severe bilateral facet arthropathy, right greater than left. There is moderate right and mild left uncovertebral joint disease. There is severe right and moderate left neuroforaminal stenosis. MICROCYTIC ANEMIA plan Pulmicort./ cont solumedrol, no dose change TODAY , has cough, PERSISTENT wheezing, productive cough worse today admitted. chg to dr MEADOWS PCP HERE FESO4 325 MG PO DAILY consult dr nguyen, FOLLOWING consult Neurology, normal saline 75 an hour. D/C home meds, PT, OT. Full code. DVT prophylaxis, frequent labs, SNU eval. CARDIOLOGY EVAL CONSIDER JOBST stocking stop the xarelto and place on ASA DUE TO FALL RISK cervical spine DDD and DJD changes are also contributing to his dizziness. 01/25 PT HYPOTENSIVE 01/25 WITH BP 90/60 at high fall risk due to orthostasis 37 min pt exam, chart review, > 50% of time spent with exam, chart review pt care coordination Vitals Vitals Vital Signs Date Time Temp Pulse Resp B/P (MAP) Pulse Ox O2 Delivery O2 Flow Rate FiO2 01/28/19 08:39 66 121/64 01/28/19 07:00 97.8 18 95 Nasal Cannula 2.0 97.8 Physical Exam General: Alert, Oriented X3, Cooperative, No acute distress Heart: Regular rate (atrial paced), Normal S1, Normal S2, Other (2/6 systolic murmur to LLS border) Lungs: Crackles Abdomen: Soft, No tenderness Extremities: No cyanosis, No edema Skin: No breakdown, No significant lesion Labs LABS Laboratory Tests Test 01/27/19 11:30 01/27/19 19:59 Prothrombin Time 17.0 SEC (11.7-14.0) Prothromb Time International Ratio 1.4 (0.8-1.1) Glucose (Fingerstick) 232 mg/dL (70-99) Assessment and Plan Assessmemt and Plan Problems Medical Problems: (1) Anemia Status: Acute (2) Atrial fibrillation Status: Acute Comment Review of Relevant I have reviewed the following items mckayla (where applicable) has been applied. Labs Laboratory Tests Test 01/27/19 03:20 01/27/19 11:30 01/27/19 19:59 White Blood Count 3.5 x10^3/uL (4.0-11.0) Red Blood Count 4.27 x10^6/uL (4.30-5.70) Hemoglobin 8.7 g/dL (13.0-17.5) Hematocrit 28.6 % (39.0-53.0) Mean Corpuscular Volume 67 fL (79-100) Mean Corpuscular Hemoglobin 20 pg (25-35) Mean Corpuscular Hemoglobin Concent 31 g/dL (31-37) Red Cell Distribution Width 23.2 % (11.5-14.5) Platelet Count 282 x10^3/uL (140-400) Neutrophils (%) (Auto) 60 % (31-73) Lymphocytes (%) (Auto) 38 % (24-48) Monocytes (%) (Auto) 2 % (0-9) Eosinophils (%) (Auto) 0 % (0-3) Basophils (%) (Auto) 0 % (0-3) Neutrophils # (Auto) 2.1 x10^3uL (1.8-7.7) Lymphocytes # (Auto) 1.3 x10^3/uL (1.0-4.8) Monocytes # (Auto) 0.1 x10^3/uL (0.0-1.1) Eosinophils # (Auto) 0.0 x10^3/uL (0.0-0.7) Basophils # (Auto) 0.0 x10^3/uL (0.0-0.2) Sodium Level 141 mmol/L (136-145) Potassium Level 4.1 mmol/L (3.5-5.1) Chloride Level 105 mmol/L (98-107) Carbon Dioxide Level 25 mmol/L (21-32) Anion Gap 11 (6-14) Blood Urea Nitrogen 16 mg/dL (8-26) Creatinine 0.9 mg/dL (0.7-1.3) Estimated GFR (Cockcroft-Gault) 99.0 BUN/Creatinine Ratio 18 (6-20) Glucose Level 170 mg/dL (70-99) Calcium Level 8.6 mg/dL (8.5-10.1) Total Bilirubin 0.3 mg/dL (0.2-1.0) Aspartate Amino Transf (AST/SGOT) 13 U/L (15-37) Alanine Aminotransferase (ALT/SGPT) 11 U/L (16-63) Alkaline Phosphatase 75 U/L (46-116) Total Protein 6.5 g/dL (6.4-8.2) Albumin 2.9 g/dL (3.4-5.0) Albumin/Globulin Ratio 0.8 (1.0-1.7) Prothrombin Time 17.0 SEC (11.7-14.0) Prothromb Time International Ratio 1.4 (0.8-1.1) Glucose (Fingerstick) 232 mg/dL (70-99) Laboratory Tests Test 01/27/19 11:30 01/27/19 19:59 Prothrombin Time 17.0 SEC (11.7-14.0) Prothromb Time International Ratio 1.4 (0.8-1.1) Glucose (Fingerstick) 232 mg/dL (70-99) Medications Current Medications Meclizine HCl (Antivert) 25 mg 1X ONCE PO Last administered on 01/24/19at 13:00 ; Start 01/24/19 at 12:15; Stop 01/24/19 at 12:16; Status DC Albuterol Sulfate (Ventolin Neb Soln) 2.5 mg RTQID NEB Last administered on 01/24at 17:09; Start 01/24/19 at 20:00; Stop 01/24/19 at 20:00; Status DC Albuterol Sulfate (Ventolin Neb Soln) 2.5 mg PRN Q4HRS PRN NEB SHORTNESS OF BREATH Last administered on 01/27/19at 09:16; Start 01/24/19 at 17:15 Pharmacy Consult (C.diff Med Screen By Rx) 1 each 1X ONCE MC Last administered on 01/24/19at 17:45; Start 01/24/19 at 17:45; Stop 01/24/19 at 17:46; Status DC Clopidogrel Bisulfate (Plavix) 75 mg DAILY PO Last administered on 01/28/19 08 :39; Start 01/24/19 at 18:30 Digoxin (Lanoxin) 125 mcg DAILY PO Last administered on 01/28/19at 08:39; Start 01/25/19 at 09:00 Doxycycline Hyclate (Vibra-Tab) 100 mg BID PO ; Start 01/24/19 at 21:00; Status UNV Gabapentin (Neurontin) 300 mg PRN TID PRN PO NEUROPATHIC PAIN Last administered on 01/28/19at 08:38; Start 01/24/19 at 18:00 Albuterol/ Ipratropium (Duoneb) 3 ml QIDPRN PRN NEB SHORTNESS OF BREATH; Start 01/24/19 at 18:00; Status UNV Albuterol/ Ipratropium (Duoneb) 3 ml RTQID NEB Last administered on 01/28/19 06:27; Start 01/24/19 at 20:00 Rivaroxaban (Xarelto) 20 mg DAILYWSUP PO Last administered on 01/26/19at 17:30; Start 01/25/19 at 19:00; Stop 01/27/19 at 11:43; Status DC Trazodone HCl (Desyrel) 100 mg QHS PO Last administered on 01/27/19at 21:08; Start 01/24/19 at 21:00 Info (Anti-Coagulation Monitoring By Pharmacy) 1 each PRN DAILY PRN [facility] SEE COMMENTS; Start 01/24/19 at 19:45 Sodium Chloride 1,000 ml @ 75 mls/hr [id number] IV Last administered on 01/25/19at 20:39; Start 01/25/19 at 10:00; Stop 01/26/19 at 11:51; Status DC Diphenhydramine HCl (Benadryl) 25 mg 1X ONCE PO ; Start 01/25/19 at 11:30; Stop 01/25/19 at 11:31; Status Cancel Diphenhydramine HCl (Benadryl Oral Elixir) 12.5 mg 1X ONCE PO Last administered on 01/25/19 12:17; Start 01/25/19 at 11:30; Stop 01/25/19 at 11:31; Status DC Fludrocortisone Acetate (Florinef) 0.1 mg DAILY PO Last administered on 08:38; Start 01/25/19 at 14:30 Budesonide (Pulmicort) 0.5 mg RTBID NEB Last administered on 01/28/19 06:27; Start 01/25/19 at 20:00 Midodrine (Proamatine) 2.5 mg [id number] PO Last administered on 01/28/19 06:14; Start 01/25/19 at 19:00 Methylprednisolone Sodium Succinate (SOLU-Medrol 40MG VIAL) 40 mg Q8HRS IV Last administered on 01/28/19 06:15; Start 01/26/19 at 15:00; Stop 01/28/19 at 07:15; Status DC Ceftriaxone Sodium (Rocephin) 1 gm Q24H IVP Last administered on 01/27/19 17: 06; Start 01/26/19 at 15:00 Diphenhydramine HCl (Benadryl Oral Elixir) 12.5 mg PRN Q6HRS PRN PO ITCHING Last administered on 01/27/19at 21:08; Start 01/26/19 at 15:45 Amiodarone HCl (Cordarone) 200 mg DAILY PO Last administered on 01/28/19 08:39 ; Start 01/27/19 at 11:45 Aspirin (Ecotrin) 81 mg DAILYWBKFT PO Last administered on 01/28/19 08:38; Start 01/27/19 at 12:30 Fluticasone Propionate (Flonase) 2 spray DAILY NS Last administered on 08:38; Start 01/28/19 at 09:00 Polysaccharide Iron Complex (Niferex 150) 150 mg DAILY PO Last administered on 01/28/19 08:38; Start 01/28/19 at 09:00 Lactobacillus Rhamnosus (Culturelle) 1 cap BID PO Last administered on 08:38; Start 01/27/19 at 21:00 Prednisone (Prednisone) 40 mg DAILY PO Last administered on 01/28/19at 08:38; Start 01/28/19 at 09:00 Polyethylene Glycol (miraLAX PACKET) 17 gm DAILY PO Last administered on at 08:36; Start 01/28/19 at 09:00 Docusate Sodium (Colace) 100 mg DAILY PO Last administered on 01/28/19at 08:38; Start 01/28/19 at 09:00 Active Scripts Active Doxycycline Hyclate 100 Mg Tablet 1 Tab PO BID 3 Days Betapace (Sotalol Hcl) 80 Mg Tablet 40 Mg PO BID 30 Days Duoneb 0.5-3(2.5) Mg/3 Ml (Albuterol/Ipratropium) 3 Ml Ampul.neb 3 Ml NEB RTQID 30 Days Vitamin B-1 (Thiamine Mononitrate) 100 Mg Tablet 100 Mg PO DAILY 30 Days [Pantoprazole] 40 MG Tablet.dr 40 Mg PO DAILYAC 30 Days Proair Hfa Inhaler (Albuterol Sulfate) 8.5 Gm Hfa.aer.ad 1 Puff INH PRN Q6HRS PRN Reported Trazodone Hcl 100 Mg Tablet 100 Mg PO QHS Oxycodone Hcl 20 Mg Tablet 20 Mg PO TID PRN PRN Duoneb 0.5-3(2.5) Mg/3 Ml (Albuterol/Ipratropium) 3 Ml Ampul.neb 3 Ml NEB QIDPRN PRN Remeron (Mirtazapine) 15 Mg Tablet 1 Tab PO QHS Xarelto (Rivaroxaban) 15 Mg Tablet 20 Mg PO HS Simvastatin 20 Mg Tablet 1 Tab PO QHS Gabapentin (Gabapentin) 300 Mg Capsule 300 Mg PO PRN TID PRN can take 1 or 2 capsules Plavix (Clopidogrel Bisulfate) 75 Mg Tablet 75 Mg PO DAILY Digoxin 125 Mcg Tablet 125 Mcg PO DAILY Vitals/I & O Vital Sign - Last 24 Hours 01/27/19 01/27/19 01/27/19 01/27/19 11:00 11:49 14:25 14:27 Temp 98.2 98.2 Pulse 98 98 98 Resp 18 B/P (MAP) 129/73 (91) 129/73 129/73 Pulse Ox 98 98 O2 Delivery Nasal Cannula Nasal Cannula O2 Flow Rate 2.0 2.0 01/27/19 01/27/19 01/27/19 01/27/19 15:00 15:52 18:37 19:30 Temp 98.0 98.5 98.0 98.5 Pulse 91 91 92 Resp 18 18 B/P (MAP) 109/61 (77) 109/61 110/61 (77) Pulse Ox 98 98 96 O2 Delivery Nasal Cannula Nasal Cannula Nasal Cannula O2 Flow Rate 2.0 2.0 2.0 01/27/19 01/27/19 01/27/19 01/27/19 20:00 20:21 20:21 23:10 Temp 97.8 97.8 Pulse 90 Resp 18 B/P (MAP) 118/63 (81) Pulse Ox 97 97 96 O2 Delivery Nasal Cannula Nasal Cannula Nasal Cannula Nasal Cannula O2 Flow Rate 2.0 2.0 2.0 2.0 01/28/19 01/28/19 01/28/19 01/28/19 03:29 06:14 06:25 07:00 Temp 97.9 97.8 97.9 97.8 Pulse 82 83 66 Resp 18 18 B/P (MAP) 124/71 (88) 112/73 121/64 (83) Pulse Ox 100 95 O2 Delivery Nasal Cannula Nasal Cannula Nasal Cannula O2 Flow Rate 2.0 2.0 2.0 01/28/19 01/28/19 08:39 08:39 Pulse 66 66 B/P (MAP) 121/64 121/64 Intake and Output 01/27/19 01/27/19 01/28/19 15:00 23:00 07:00 Intake Total 300 ml 300 ml Balance 300 ml 300 ml Nutrition Consultation Dietary Evaluation: Recommendations by RD: Increase Calorie Intake, Protein supplementation Comments: ensure tid Expected Outcomes/Goals: to meet > 75% est nutr needs Interpretation of weight loss: >20% in 1 year Malnutrition Findings: Food and Nutrition Intake (Mod: <75% est energy req 7days Weight Status: Underweight ANGEL BOTELLO MD Jan 28, 2019 10:25
--- NOTE | 2019-01-28 10:33 | PDOC ---
PROGRESS NOTES Subjective Subjective No new complaints and he feels somewhat better with his dizziness. Objective Objective Vital Signs Date Time Temp Pulse Resp B/P (MAP) Pulse Ox O2 Delivery O2 Flow Rate FiO2 01/28/19 08:39 66 121/64 01/28/19 07:00 97.8 18 95 Nasal Cannula 2.0 97.8 Intake and Output 01/28/19 07:00 Intake Total 600 ml Balance 600 ml Intake Oral 600 ml # Voids 4 Physical Exam Physical Exam He is supine in bed and seems to be comfortable and he is walking independently in his room. Assessment Assessment Problems Medical Problems: (1) Anemia Status: Acute (2) Atrial fibrillation Status: Acute Plan Plan of Intermediate when medically stable in the next few days. Comment Review of Relevant I have reviewed the following items mckayla (where applicable) has been applied. Labs Laboratory Tests Test 01/27/19 03:20 01/27/19 11:30 01/27/19 19:59 White Blood Count 3.5 x10^3/uL (4.0-11.0) Red Blood Count 4.27 x10^6/uL (4.30-5.70) Hemoglobin 8.7 g/dL (13.0-17.5) Hematocrit 28.6 % (39.0-53.0) Mean Corpuscular Volume 67 fL (79-100) Mean Corpuscular Hemoglobin 20 pg (25-35) Mean Corpuscular Hemoglobin Concent 31 g/dL (31-37) Red Cell Distribution Width 23.2 % (11.5-14.5) Platelet Count 282 x10^3/uL (140-400) Neutrophils (%) (Auto) 60 % (31-73) Lymphocytes (%) (Auto) 38 % (24-48) Monocytes (%) (Auto) 2 % (0-9) Eosinophils (%) (Auto) 0 % (0-3) Basophils (%) (Auto) 0 % (0-3) Neutrophils # (Auto) 2.1 x10^3uL (1.8-7.7) Lymphocytes # (Auto) 1.3 x10^3/uL (1.0-4.8) Monocytes # (Auto) 0.1 x10^3/uL (0.0-1.1) Eosinophils # (Auto) 0.0 x10^3/uL (0.0-0.7) Basophils # (Auto) 0.0 x10^3/uL (0.0-0.2) Sodium Level 141 mmol/L (136-145) Potassium Level 4.1 mmol/L (3.5-5.1) Chloride Level 105 mmol/L (98-107) Carbon Dioxide Level 25 mmol/L (21-32) Anion Gap 11 (6-14) Blood Urea Nitrogen 16 mg/dL (8-26) Creatinine 0.9 mg/dL (0.7-1.3) Estimated GFR (Cockcroft-Gault) 99.0 BUN/Creatinine Ratio 18 (6-20) Glucose Level 170 mg/dL (70-99) Calcium Level 8.6 mg/dL (8.5-10.1) Total Bilirubin 0.3 mg/dL (0.2-1.0) Aspartate Amino Transf (AST/SGOT) 13 U/L (15-37) Alanine Aminotransferase (ALT/SGPT) 11 U/L (16-63) Alkaline Phosphatase 75 U/L (46-116) Total Protein 6.5 g/dL (6.4-8.2) Albumin 2.9 g/dL (3.4-5.0) Albumin/Globulin Ratio 0.8 (1.0-1.7) Prothrombin Time 17.0 SEC (11.7-14.0) Prothromb Time International Ratio 1.4 (0.8-1.1) Glucose (Fingerstick) 232 mg/dL (70-99) Laboratory Tests Test 01/27/19 11:30 01/27/19 19:59 Prothrombin Time 17.0 SEC (11.7-14.0) Prothromb Time International Ratio 1.4 (0.8-1.1) Glucose (Fingerstick) 232 mg/dL (70-99) Medications Current Medications Meclizine HCl (Antivert) 25 mg 1X ONCE PO Last administered on 01/24/19at 13:00 ; Start 01/24/19 at 12:15; Stop 01/24/19 at 12:16; Status DC Albuterol Sulfate (Ventolin Neb Soln) 2.5 mg RTQID NEB Last administered on 01/24at 17:09; Start 01/24/19 at 20:00; Stop 01/24/19 at 20:00; Status DC Albuterol Sulfate (Ventolin Neb Soln) 2.5 mg PRN Q4HRS PRN NEB SHORTNESS OF BREATH Last administered on 01/27/19 09:16; Start 01/24/19 at 17:15 Pharmacy Consult (C.diff Med Screen By Rx) 1 each 1X ONCE [facility] Last administered on 01/24/19 17:45; Start 01/24/19 at 17:45; Stop 01/24/19 at 17:46; Status DC Clopidogrel Bisulfate (Plavix) 75 mg DAILY PO Last administered on 01/28/19 08 :39; Start 01/24/19 at 18:30 Digoxin (Lanoxin) 125 mcg DAILY PO Last administered on 01/28/19 08:39; Start 01/25/19 at 09:00 Doxycycline Hyclate (Vibra-Tab) 100 mg BID PO ; Start 01/24/19 at 21:00; Status UNV Gabapentin (Neurontin) 300 mg PRN TID PRN PO NEUROPATHIC PAIN Last administered on 01/28/19at 08:38; Start 01/24/19 at 18:00 Albuterol/ Ipratropium (Duoneb) 3 ml QIDPRN PRN NEB SHORTNESS OF BREATH; Start 01/24/19 at 18:00; Status UNV Albuterol/ Ipratropium (Duoneb) 3 ml RTQID NEB Last administered on 01/28/19 06:27; Start 01/24/19 at 20:00 Rivaroxaban (Xarelto) 20 mg DAILYWSUP PO Last administered on 01/26/19at 17:30; Start 01/25/19 at 19:00; Stop 01/27/19 at 11:43; Status DC Trazodone HCl (Desyrel) 100 mg QHS PO Last administered on 01/27/19 21:08; Start 01/24/19 at 21:00 Info (Anti-Coagulation Monitoring By Pharmacy) 1 each PRN DAILY PRN [facility] SEE COMMENTS; Start 01/24/19 at 19:45 Sodium Chloride 1,000 ml @ 75 mls/hr [id number] IV Last administered on 01/25/19 20:39; Start 01/25/19 at 10:00; Stop 01/26/19 at 11:51; Status DC Diphenhydramine HCl (Benadryl) 25 mg 1X ONCE PO ; Start 01/25/19 at 11:30; Stop 01/25/19 at 11:31; Status Cancel Diphenhydramine HCl (Benadryl Oral Elixir) 12.5 mg 1X ONCE PO Last administered on 01/25/19 12:17; Start 01/25/19 at 11:30; Stop 01/25/19 at 11:31; Status DC Fludrocortisone Acetate (Florinef) 0.1 mg DAILY PO Last administered on 08:38; Start 01/25/19 at 14:30 Budesonide (Pulmicort) 0.5 mg RTBID NEB Last administered on 01/28/19 06:27; Start 01/25/19 at 20:00 Midodrine (Proamatine) 2.5 mg [id number] PO Last administered on 01/28/19 06:14; Start 01/25/19 at 19:00 Methylprednisolone Sodium Succinate (SOLU-Medrol 40MG VIAL) 40 mg Q8HRS IV Last administered on 01/28/19 06:15; Start 01/26/19 at 15:00; Stop 01/28/19 at 07:15; Status DC Ceftriaxone Sodium (Rocephin) 1 gm Q24H IVP Last administered on 01/27/19 17: 06; Start 01/26/19 at 15:00 Diphenhydramine HCl (Benadryl Oral Elixir) 12.5 mg PRN Q6HRS PRN PO ITCHING Last administered on 01/27/19 21:08; Start 01/26/19 at 15:45 Amiodarone HCl (Cordarone) 200 mg DAILY PO Last administered on 01/28/19 08:39 ; Start 01/27/19 at 11:45 Aspirin (Ecotrin) 81 mg DAILYWBKFT PO Last administered on 01/28/19 08:38; Start 01/27/19 at 12:30 Fluticasone Propionate (Flonase) 2 spray DAILY NS Last administered on 08:38; Start 01/28/19 at 09:00 Polysaccharide Iron Complex (Niferex 150) 150 mg DAILY PO Last administered on 4/12/19at 08:38; Start 01/28/19 at 09:00 Lactobacillus Rhamnosus (Culturelle) 1 cap BID PO Last administered on 08:38; Start 01/27/19 at 21:00 Prednisone (Prednisone) 40 mg DAILY PO Last administered on 01/28/19 08:38; Start 01/28/19 at 09:00 Polyethylene Glycol (miraLAX PACKET) 17 gm DAILY PO Last administered on at 08:36; Start 01/28/19 at 09:00 Docusate Sodium (Colace) 100 mg DAILY PO Last administered on 01/28/19at 08:38; Start 01/28/19 at 09:00 Active Scripts Active Doxycycline Hyclate 100 Mg Tablet 1 Tab PO BID 3 Days Betapace (Sotalol Hcl) 80 Mg Tablet 40 Mg PO BID 30 Days Duoneb 0.5-3(2.5) Mg/3 Ml (Albuterol/Ipratropium) 3 Ml Ampul.neb 3 Ml NEB RTQID 30 Days Vitamin B-1 (Thiamine Mononitrate) 100 Mg Tablet 100 Mg PO DAILY 30 Days [Pantoprazole] 40 MG Tablet.dr 40 Mg PO DAILYAC 30 Days Proair Hfa Inhaler (Albuterol Sulfate) 8.5 Gm Hfa.aer.ad 1 Puff INH PRN Q6HRS PRN Reported Trazodone Hcl 100 Mg Tablet 100 Mg PO QHS Oxycodone Hcl 20 Mg Tablet 20 Mg PO TID PRN PRN Duoneb 0.5-3(2.5) Mg/3 Ml (Albuterol/Ipratropium) 3 Ml Ampul.neb 3 Ml NEB QIDPRN PRN Remeron (Mirtazapine) 15 Mg Tablet 1 Tab PO QHS Xarelto (Rivaroxaban) 15 Mg Tablet 20 Mg PO HS Simvastatin 20 Mg Tablet 1 Tab PO QHS Gabapentin (Gabapentin) 300 Mg Capsule 300 Mg PO PRN TID PRN can take 1 or 2 capsules Plavix (Clopidogrel Bisulfate) 75 Mg Tablet 75 Mg PO DAILY Digoxin 125 Mcg Tablet 125 Mcg PO DAILY Vitals/I & O Vital Sign - Last 24 Hours 01/27/19 01/27/19 01/27/19 01/27/19 11:00 11:49 14:25 14:27 Temp 98.2 98.2 Pulse 98 98 98 Resp 18 B/P (MAP) 129/73 (91) 129/73 129/73 Pulse Ox 98 98 O2 Delivery Nasal Cannula Nasal Cannula O2 Flow Rate 2.0 2.0 01/27/19 01/27/19 01/27/19 01/27/19 15:00 15:52 18:37 19:30 Temp 98.0 98.5 98.0 98.5 Pulse 91 91 92 Resp 18 18 B/P (MAP) 109/61 (77) 109/61 110/61 (77) Pulse Ox 98 98 96 O2 Delivery Nasal Cannula Nasal Cannula Nasal Cannula O2 Flow Rate 2.0 2.0 2.0 01/27/19 01/27/19 01/27/19 01/27/19 20:00 20:21 20:21 23:10 Temp 97.8 97.8 Pulse 90 Resp 18 B/P (MAP) 118/63 (81) Pulse Ox 97 97 96 O2 Delivery Nasal Cannula Nasal Cannula Nasal Cannula Nasal Cannula O2 Flow Rate 2.0 2.0 2.0 2.0 01/28/19 01/28/19 01/28/19 01/28/19 03:29 06:14 06:25 07:00 Temp 97.9 97.8 97.9 97.8 Pulse 82 83 66 Resp 18 18 B/P (MAP) 124/71 (88) 112/73 121/64 (83) Pulse Ox 100 95 O2 Delivery Nasal Cannula Nasal Cannula Nasal Cannula O2 Flow Rate 2.0 2.0 2.0 01/28/19 01/28/19 08:39 08:39 Pulse 66 66 B/P (MAP) 121/64 121/64 Intake and Output 01/27/19 01/27/19 01/28/19 15:00 23:00 07:00 Intake Total 300 ml 300 ml Balance 300 ml 300 ml Nutrition Consultation Dietary Evaluation: Recommendations by RD: Increase Calorie Intake, Protein supplementation Comments: ensure tid Expected Outcomes/Goals: to meet > 75% est nutr needs Interpretation of weight loss: >20% in 1 year Malnutrition Findings: Food and Nutrition Intake (Mod: <75% est energy req 7days Weight Status: Underweight CESILIA MURPHY MD Jan 28, 2019 10:33
--- NOTE | 2019-01-28 11:42 | PDOC ---
CARDIO Progress Notes Date and Time Date of Service 01/28/2019 Time of Evaluation 1130 Subjective Subjective: No Chest Pain, No shortness of breath, No Palpitations, No Dizziness Vitals Vitals Vital Signs Date Time Temp Pulse Resp B/P (MAP) Pulse Ox O2 Delivery O2 Flow Rate FiO2 01/28/19 11:33 98 102/64 (77) 95 Room Air 01/28/19 11:00 98.4 18 98.4 01/28/19 08:00 2.0 Weight Weight [ ] Input and Output Intake and Output Intake and Output 01/28/19 06:59 Intake Total 600 ml Balance 600 ml Intake Oral 600 ml # Voids 4 Laboratory Labs Laboratory Tests Test 01/27/19 19:59 Glucose (Fingerstick) 232 mg/dL (70-99) Physical Exam HEENT: Neck Supple W Full Motion Chest: Symmetric LUNGS: Clear to Auscultation Heart: RRR (SR with intermittent atrial pacing) Abdomen: Soft N/T Extremities: No Edema, No Calf Tenderness Neurology: alert, oriented, follow commands Assessment Assessment 1. Presyncope due to known orthostasis: symptoms and BP better 2. AICD in situ: ([employer]), normal function with 0.1% AFIB burden 3. Hx of NICM: compensated. NYHA 1-2. Recovered EF at 50-55% 4. PAFIB: atrial paced intermittent with bursts of AFIB 5. HLP 6. s/p AAA, Iliac artery aneurysm repair. Stable. 7. AECOPD: better 8. Anemia: possibly hemodilutional Hgb 8.7 with IVF Recommendations 1. Continue with secondary prevention. Unable to tolerate abd binder due to back issues. Slow positional changes 2. Continue florinef and low dose midodrine. Encouraged HBPM daily to bid 3. I discussed with him the risks and benefits of ASA and xarelto and equating the risk of potential injury with high risk for fall and he want s to stop the xarelto and be place on ASA for stroke prevention 4. Continue digoxin and amiodarone. 5. Follow with Dr. Gao on March 01 1:30 PM CRYSTAL BAUTISTA APRN Jan 28, 2019 11:42
[2019-01-28] MEDS: cefTRIAXone IV Push 1 GM VIAL. IVP SCH (15:03)
--- NOTE | 2019-01-28 16:51 | PDOC ---
PROGRESS NOTES Assessment Assessment Dizziness and light headiness x 6 months, worsen now.. Orthostatic hypotension. AFib. CAD. HTN. HLD. COPD. 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 Degenerative spine disease. RECOMMENDATIONS/PLAN: He has been on Plavix 75 mg daily. Midodrine 2.5 mg tid, avoid dosing close to bedtime. Cardiology added Florinef. Maintain good hydration. Continue checking ortho BP and HR. OT/PT. FU with PCP. FU with Cardiology. HISTORY OF PRESENT ILLNESS This is a 78-year-old AA male patient with history of chronic dizziness, and light headiness for about 6 months. He came to the ER of [facility] on 01/24/19 stating his sympotms of dizziness and light headiness became worse especially when he moves his eyes up and extend his head back or when he is on upright position. He has been struggling with orthostasis. He had multiple episodes of dizziness primarily when standing up and multiple events of aborted fall as quickly got sit down. No focalized sensory or motor deficits. He stated on 01/28/19 that he felt improved then before at standing position. Past Medical History Cardiovascular: AFIB, CAD, CHF, HTN, AR, Hyperlipidemia, Other (abdominal aortic aneurysm) Pulmonary: Bronchitis, COPD CENTRAL NERVOUS SYSTEM: CVA, Periperal neuropathy (idiopathic, but has had positive ANAs and past), Other (Jhaveri's palsy) GI: Constipation, GERD Musculoskeletal: low back pain Renal/: Benign prostatic enlarg. Past Surgical History Pacemaker (defibrillator), CABG, Cataract Removal, Hernia Repair (hiatal and inguinal), Other (lumbar, coronary stent, repair of esophageal tear, knee, AAA repair) Family History Cancer Allergies Coded Allergies: Iodinated Contrast- Oral and IV Dye (Verified Allergy, Severe, anaphalaxis , short of air, 06/06/15) adhesive (Verified Allergy, Severe, PAINFUL SKIN IRRITATION , 06/06/15) latex (Verified Allergy, Intermediate, Hives, 06/06/15) ROS Patient denies fevers, chills, weight loss,angina, abdominal pain, change in bowels, or dysuria. Positive for dyspnea. 14-point review of systems is negative. Social History , occasionally drinks alcohol heavily but not in the past week, occasional tobacco use, retired MEDICATIONS: Refer to [facility] PHYSICAL EXAMINATION: General appearance is in subacute on chronic distress. HEENT: Normocephalic and nontraumatic. Eyes, nose, ears, and throat are unremarkable. Neck is supple. No lymphadenopathy. No bruits are heard over the carotid artery. No crepitus. Cardiovascular: S1, S2, seemed irregular rate and rhythm. Pulmonary: Clear to auscultation bilaterally. Abdomen: Bowel sounds are positive. Abdomen is soft, nontender, and nondistended. Extremities: No rash, lesions, or edema. No restriction of range of motion NEUROLOGICAL EXAMINATION: Awake. Oriented to time, place and person. PERRL. EOMI. CN: no focal findings. Muscle tone: within normal. Muscle strength: 4+ DTR: 2- Plantar reflex: Neutral response bilaterally Gait: not examined in bed. Sensory exam: no abnormal findings. No cerebellar signs elicited. F-T-N test fine. Objective Objective Vital Signs Date Time Temp Pulse Resp B/P (MAP) Pulse Ox O2 Delivery O2 Flow Rate FiO2 01/28/19 16:39 Nasal Cannula 2.0 01/28/19 15:00 98.1 98 18 113/48 (69) 94 98.1 Intake and Output 01/28/19 07:00 Intake Total 600 ml Balance 600 ml Intake Oral 600 ml # Voids 4 Vitals Signs Vitals VS - Last 72 Hours, by Label Date Time Temp Pulse Resp B/P (MAP) Pulse Ox O2 Delivery O2 Flow Rate FiO2 01/28/19 16:39 Nasal Cannula 2.0 01/28/19 15:00 98.1 98 18 113/48 (69) 94 Room Air 98.1 01/28/19 13:58 98 102/64 01/28/19 12:26 95 Nasal Cannula 2.0 01/28/19 11:33 98 102/64 (77) 95 Room Air 01/28/19 11:33 91 102/75 (84) 95 Room Air 01/28/19 11:00 98.4 85 18 106/62 (77) 95 Room Air 98.4 01/28/19 08:39 66 121/64 01/28/19 08:39 66 121/64 01/28/19 08:00 Nasal Cannula 2.0 01/28/19 07:00 97.8 66 18 121/64 (83) 95 Nasal Cannula 2.0 97.8 01/28/19 06:25 Nasal Cannula 2.0 01/28/19 06:14 83 112/73 01/28/19 03:29 97.9 82 18 124/71 (88) 100 Nasal Cannula 2.0 97.9 01/27/19 23:10 97.8 90 18 118/63 (81) 96 Nasal Cannula 2.0 97.8 01/27/19 20:21 97 Nasal Cannula 2.0 01/27/19 20:21 97 Nasal Cannula 2.0 01/27/19 20:00 Nasal Cannula 2.0 01/27/19 19:30 98.5 92 18 110/61 (77) 96 Nasal Cannula 2.0 98.5 01/27/19 18:37 91 109/61 01/27/19 15:52 98 Nasal Cannula 2.0 01/27/19 15:00 98.0 91 18 109/61 (77) 98 Nasal Cannula 2.0 98.0 01/27/19 14:27 98 129/73 01/27/19 14:25 98 129/73 01/27/19 11:49 98 Nasal Cannula 2.0 01/27/19 11:00 98.2 98 18 129/73 (91) 98 Nasal Cannula 2.0 98.2 01/27/19 09:52 89 132/63 01/27/19 09:17 Nasal Cannula 2.0 01/27/19 08:00 Nasal Cannula 2.0 01/27/19 07:00 98.0 89 18 132/63 (86) 97 Room Air 2.0 98.0 Laboratory Laboratory Laboratory Tests Test 01/27/19 19:59 Glucose (Fingerstick) 232 mg/dL (70-99) Medication Medications Current Medications Amoxicillin/ Clavulanate Potassium (Augmentin 875/ 125mg) 1 tab BID PO ; Start 01/29/19 at 09:00; Stop 02/01/19 at 21:01 Docusate Sodium (Colace) 100 mg DAILY PO Last administered on 01/28/19at 08:38; Start 01/28/19 at 09:00 Fluticasone Propionate (Flonase) 2 spray DAILY NS Last administered on at 08:38; Start 01/28/19 at 09:00 Guaifenesin (Mucinex) 600 mg BID PO Last administered on 01/28/19at 12:09; Start 01/28/19 at 12:00 Lactobacillus Rhamnosus (Culturelle) 1 cap BID PO Last administered on at 08:38; Start 01/27/19 at 21:00 Polyethylene Glycol (miraLAX PACKET) 17 gm DAILY PO Last administered on at 08:36; Start 01/28/19 at 09:00 Polysaccharide Iron Complex (Niferex 150) 150 mg DAILY PO Last administered on 01/28/19at 08:38; Start 01/28/19 at 09:00 Prednisone (Prednisone) 40 mg DAILY PO Last administered on 01/28/19at 08:38; Start 01/28/19 at 09:00 Comment Review of Relevant I have reviewed the following items mckayla (where applicable) has been applied. PAUL FRENCH MD Jan 28, 2019 16:51
[2019-01-28] MEDS ORDERED: LUBIPROSTONE 8 MCG CAPSULE PO SCH ×2 (20:30→20:38)
[2019-01-28] MEDS: diphenhydrAMINE ORAL ELIXIR 12.5 MG/5 ML ML PO PRN (20:34)
[2019-01-28] MEDS: traZODone 100 MG TABLET. PO SCH (20:34)
[2019-01-28] MEDS: LUBIPROSTONE 8 MCG CAPSULE PO SCH (21:42)
[2019-01-29] VITALS (8 sets, daily range): BP systolic 64–122; BP diastolic 40–80
[2019-01-29 05:54] LABS: ALBUMIN 2.7 g/dL (3.4-5.0); ALBUMIN/GLOBULIN RATIO 0.8 (1.0-1.7); CALCIUM 8.6 mg/dL (8.5-10.1); CREATININE 0.8 mg/dL (0.7-1.3); GFR 113.4; POTASSIUM 3.8 mmol/L (3.5-5.1); TOTAL BILIRUBIN 0.2 mg/dL (0.2-1.0)
[2019-01-29 06:08] LABS: BASO % 0 % (0-3); EOS % 0 % (0-3); HEMATOCRIT 28.4 % (39.0-53.0); HEMOGLOBIN 8.6 g/dL (13.0-17.5); LYMPH # 2.6 x10^3/uL (1.0-4.8); LYMPH % 19 % (24-48); MEAN CORPUSCULAR HEMOGLOBIN 20 pg (25-35); MEAN CORPUSCULAR HGB CONC 30 g/dL (31-37); MEAN CORPUSCULAR VOLUME 67 fL (79-100); MONO # 0.9 x10^3/uL (0.0-1.1); MONO % 6 % (0-9); NEUT # 10.2 x10^3uL (1.8-7.7); NEUT % 75 % (31-73); PLATELET COUNT 302 x10^3/uL (140-400); RED BLOOD COUNT 4.25 x10^6/uL (4.30-5.70); RED CELL DISTRIBUTION WIDTH 23.4 % (11.5-14.5); WHITE BLOOD COUNT 13.7 x10^3/uL (4.0-11.0)
[2019-01-29] MEDS: MIDODRINE 2.5 MG TABLET PO SCH ×3 (07:15→17:31)
--- NOTE | 2019-01-29 07:31 | NUR ---
Pt with complaints of needing to have bm. Called Physician during the noc and received ok orders for amitiza 24mcg twice daily. Pt refusing mag citrate to help with symptoms. Pt given prune juice, coffee and stool softeners during the day to help with complications. Pt with complaints of abd pain this am since wanting to have bm. Day nurse has been informed. Pt states with chronic back pain however states nothing you can do about that. Day nurse states having a call out to Physician for possible pain med. No further complaints at this time.
[2019-01-29] MEDS ORDERED: traMADol 50 MG TABLET PO ONE (07:45)
[2019-01-29] MEDS: BUDESONIDE 0.5 MG/2 ML NEBU. NEB SCH ×2 (08:00→20:49)
--- NOTE | 2019-01-29 08:19 | PDOC ---
PULMONARY PROGRESS NOTES Subjective no sob, has occ cough, no pain, has constipation Vitals Vital Signs Date Time Temp Pulse Resp B/P (MAP) Pulse Ox O2 Delivery O2 Flow Rate FiO2 01/29/19 07:15 122/80 01/29/19 07:00 98.4 85 16 95 Room Air 98.4 01/28/19 20:00 2.0 ROS: No Nausea General: Alert, No acute distress HEENT: Other (nc at perrl ) Lungs: Crackles Cardiovascular: S1, S2 Abdomen: Soft, Non-tender Neuro Exam: Alert Extremities: No Edema Skin: Warm Labs Laboratory Tests Test 01/27/19 11:30 01/27/19 19:59 01/29/19 04:05 Prothrombin Time 17.0 SEC (11.7-14.0) Prothromb Time International Ratio 1.4 (0.8-1.1) Glucose (Fingerstick) 232 mg/dL (70-99) White Blood Count 13.7 x10^3/uL (4.0-11.0) Red Blood Count 4.25 x10^6/uL (4.30-5.70) Hemoglobin 8.6 g/dL (13.0-17.5) Hematocrit 28.4 % (39.0-53.0) Mean Corpuscular Volume 67 fL (79-100) Mean Corpuscular Hemoglobin 20 pg (25-35) Mean Corpuscular Hemoglobin Concent 30 g/dL (31-37) Red Cell Distribution Width 23.4 % (11.5-14.5) Platelet Count 302 x10^3/uL (140-400) Neutrophils (%) (Auto) 75 % (31-73) Lymphocytes (%) (Auto) 19 % (24-48) Monocytes (%) (Auto) 6 % (0-9) Eosinophils (%) (Auto) 0 % (0-3) Basophils (%) (Auto) 0 % (0-3) Neutrophils # (Auto) 10.2 x10^3uL (1.8-7.7) Lymphocytes # (Auto) 2.6 x10^3/uL (1.0-4.8) Monocytes # (Auto) 0.9 x10^3/uL (0.0-1.1) Eosinophils # (Auto) 0.0 x10^3/uL (0.0-0.7) Basophils # (Auto) 0.0 x10^3/uL (0.0-0.2) Sodium Level 144 mmol/L (136-145) Potassium Level 3.8 mmol/L (3.5-5.1) Chloride Level 106 mmol/L (98-107) Carbon Dioxide Level 28 mmol/L (21-32) Anion Gap 10 (6-14) Blood Urea Nitrogen 22 mg/dL (8-26) Creatinine 0.8 mg/dL (0.7-1.3) Estimated GFR (Cockcroft-Gault) 113.4 BUN/Creatinine Ratio 28 (6-20) Glucose Level 121 mg/dL (70-99) Calcium Level 8.6 mg/dL (8.5-10.1) Total Bilirubin 0.2 mg/dL (0.2-1.0) Aspartate Amino Transf (AST/SGOT) 29 U/L (15-37) Alanine Aminotransferase (ALT/SGPT) 32 U/L (16-63) Alkaline Phosphatase 60 U/L (46-116) Total Protein 6.0 g/dL (6.4-8.2) Albumin 2.7 g/dL (3.4-5.0) Albumin/Globulin Ratio 0.8 (1.0-1.7) Laboratory Tests Test 01/29/19 04:05 White Blood Count 13.7 x10^3/uL (4.0-11.0) Red Blood Count 4.25 x10^6/uL (4.30-5.70) Hemoglobin 8.6 g/dL (13.0-17.5) Hematocrit 28.4 % (39.0-53.0) Mean Corpuscular Volume 67 fL (79-100) Mean Corpuscular Hemoglobin 20 pg (25-35) Mean Corpuscular Hemoglobin Concent 30 g/dL (31-37) Red Cell Distribution Width 23.4 % (11.5-14.5) Platelet Count 302 x10^3/uL (140-400) Neutrophils (%) (Auto) 75 % (31-73) Lymphocytes (%) (Auto) 19 % (24-48) Monocytes (%) (Auto) 6 % (0-9) Eosinophils (%) (Auto) 0 % (0-3) Basophils (%) (Auto) 0 % (0-3) Neutrophils # (Auto) 10.2 x10^3uL (1.8-7.7) Lymphocytes # (Auto) 2.6 x10^3/uL (1.0-4.8) Monocytes # (Auto) 0.9 x10^3/uL (0.0-1.1) Eosinophils # (Auto) 0.0 x10^3/uL (0.0-0.7) Basophils # (Auto) 0.0 x10^3/uL (0.0-0.2) Sodium Level 144 mmol/L (136-145) Potassium Level 3.8 mmol/L (3.5-5.1) Chloride Level 106 mmol/L (98-107) Carbon Dioxide Level 28 mmol/L (21-32) Anion Gap 10 (6-14) Blood Urea Nitrogen 22 mg/dL (8-26) Creatinine 0.8 mg/dL (0.7-1.3) Estimated GFR (Cockcroft-Gault) 113.4 BUN/Creatinine Ratio 28 (6-20) Glucose Level 121 mg/dL (70-99) Calcium Level 8.6 mg/dL (8.5-10.1) Total Bilirubin 0.2 mg/dL (0.2-1.0) Aspartate Amino Transf (AST/SGOT) 29 U/L (15-37) Alanine Aminotransferase (ALT/SGPT) 32 U/L (16-63) Alkaline Phosphatase 60 U/L (46-116) Total Protein 6.0 g/dL (6.4-8.2) Albumin 2.7 g/dL (3.4-5.0) Albumin/Globulin Ratio 0.8 (1.0-1.7) Medications Active Scripts Medications Dose Route/Sig Max Daily Dose Days Date Category Dose Instructions Doxycycline Hyclate 100 Mg Tablet 1 Tab PO BID 3 12/14/18 Rx Trazodone Hcl 100 Mg Tablet 100 Mg PO QHS 12/10/18 Reported Oxycodone Hcl 20 Mg Tablet 20 Mg PO TID PRN PRN 12/10/18 Reported Betapace (Sotalol Hcl) 80 Mg Tablet 40 Mg PO BID 30 11/05/18 Rx Duoneb 0.5-3(2.5) Mg/3 Ml (Albuterol/Ipratropium) 3 Ml Ampul.neb 3 Ml NEB RTQID 30 11/05/18 Rx Vitamin B-1 (Thiamine Mononitrate) 100 Mg Tablet 100 Mg PO DAILY 30 08/23/18 Rx [Pantoprazole] 40 MG Tablet.dr 40 Mg PO DAILYAC 30 08/23/18 Rx Duoneb 0.5-3(2.5) Mg/3 Ml (Albuterol/Ipratropium) 3 Ml Ampul.neb 3 Ml NEB QIDPRN PRN 08/16/18 Reported Remeron (Mirtazapine) 15 Mg Tablet 1 Tab PO QHS 08/16/18 Reported Proair Hfa Inhaler (Albuterol Sulfate) 8.5 Gm Hfa.aer.ad 1 Puff INH PRN Q6HRS PRN 07/01/18 Rx Xarelto (Rivaroxaban) 15 Mg Tablet 20 Mg PO HS 03/26/15 Reported Simvastatin 20 Mg Tablet 1 Tab PO QHS 10/18/14 Reported Gabapentin (Gabapentin) 300 Mg Capsule 300 Mg PO PRN TID PRN 01/29/14 Reported can take 1 or 2 capsules Plavix (Clopidogrel Bisulfate) 75 Mg Tablet 75 Mg PO DAILY 01/29/14 Reported Digoxin 125 Mcg Tablet 125 Mcg PO DAILY 01/29/14 Reported Impression . 1. Dizziness related to orthostasis. Cardiology has been following. 2. Dyspnea with faint bronchospasm related to acute exacerbation of chronic obstructive pulmonary disease. 3. No definite consolidation seen on the chest x-ray./ acute Bronchitis clinically Plan . 1. Continue with present bronchodilators with DuoNeb. prednisone 40 mg daily w taper by 10 mg q 3d 3. Xarelto for AFib, per primary. 4. Monitoring of orthostasis closely per Cardiology. 5. Oxygen titration 6. cont flonase. 7. cont Abx, augmentin, total abx for 7 days 8. Discussed with RN, pt. ALYSIA GARCIA MD Jan 29, 2019 08:19
[2019-01-29 08:37] LABS: % BANDS 5 % (0-9); % LYMPHS 12 % (24-48); % MONOS 7 % (0-10); % SEGS 76 % (35-66); PLT ESTIMATE ADEQUATE (ADEQUATE)
[2019-01-29 08:38] LABS: ANISOCYTOSIS MARKED; MICROCYTOSIS MARKED; POIKILOCYTOSIS PRESENT; POLYCHROMASIA PRESENT
[2019-01-29 08:39] LABS: BIZZARE CELLS FEW; OVALOCYTES FEW; SCHISTOCYTES FEW; TARGET CELLS PRESENT; TEAR DROP CELLS FEW
[2019-01-29] MEDS: IRON POLYSACCHARIDE COMPLEX 150 MG CAPSULE PO SCH (08:39)
[2019-01-29] MEDS: POLYETHYLENE GLYCOL 3350 17 GM PACKET. PO SCH (08:39)
[2019-01-29] MEDS: AMOXICILLIN/K CLAV 875/125MG TABLET. PO SCH ×2 (08:39→20:43)
[2019-01-29] MEDS: FLUDROCORTISONE 0.1 MG TABLET PO SCH (08:39)
[2019-01-29 08:40] LABS: BURR CELLS FEW
[2019-01-29] MEDS: LACTOBACILLUS RHAMNOSUS GG 1 CAPSULE. PO SCH ×2 (08:40→20:43)
[2019-01-29] MEDS: LUBIPROSTONE 8 MCG CAPSULE PO SCH ×2 (08:40→17:22)
[2019-01-29] MEDS: ASPIRIN ENTERIC COATED 81 MG TABLET.DR. PO SCH (08:41)
[2019-01-29] MEDS: DIGOXIN 125 MCG TABLET. PO SCH (08:42)
[2019-01-29] MEDS: predniSONE 20 MG TABLET PO SCH (08:42)
[2019-01-29] MEDS: DOCUSATE SODIUM 100 MG CAPSULE. PO SCH (08:43)
[2019-01-29] MEDS: AMIODARONE HCL 200 MG TABLET. PO SCH (08:43)
[2019-01-29] MEDS: FLUTICASONE 50MCG/NASAL SPRAY 16GM BOTTLE. NS SCH (08:43)
[2019-01-29] MEDS: CLOPIDOGREL BISULFATE 75 MG TABLET PO SCH (08:49)
[2019-01-29] MEDS: IPRATRPIUM/ALBUTEROL 0.5/2.5MG 3 ML NEBU. NEB SCH ×4 (09:18→20:49)
--- NOTE | 2019-01-29 09:51 | PDOC ---
PROGRESS NOTES Subjective Subjective He c/o having to strain a lot to have a bowel movement as with his chronic low back pain,he feels weak in his anterior abdominal and back muscles. He feels better with his dizziness. Objective Objective Vital Signs Date Time Temp Pulse Resp B/P (MAP) Pulse Ox O2 Delivery O2 Flow Rate FiO2 01/29/19 09:18 Room Air 01/29/19 08:43 85 122/80 01/29/19 08:41 16 01/29/19 07:00 98.4 95 98.4 01/28/19 20:00 2.0 Intake and Output 01/29/19 07:00 Intake Total 905 ml Balance 905 ml Intake Oral 905 ml # Voids 4 Physical Exam Physical Exam He is independent with his mobility at roller walker level and he continues with tenderness to palpation over lumbar spine and sacroiliac joints. Assessment Assessment Problems Medical Problems: (1) Anemia Status: Acute (2) Atrial fibrillation Status: Acute Plan Plan of Skilled Nursing with out patient follow up when medically stable. Comment Review of Relevant I have reviewed the following items mckayla (where applicable) has been applied. Labs Laboratory Tests Test 01/27/19 11:30 01/27/19 19:59 01/29/19 04:05 Prothrombin Time 17.0 SEC (11.7-14.0) Prothromb Time International Ratio 1.4 (0.8-1.1) Glucose (Fingerstick) 232 mg/dL (70-99) White Blood Count 13.7 x10^3/uL (4.0-11.0) Red Blood Count 4.25 x10^6/uL (4.30-5.70) Hemoglobin 8.6 g/dL (13.0-17.5) Hematocrit 28.4 % (39.0-53.0) Mean Corpuscular Volume 67 fL (79-100) Mean Corpuscular Hemoglobin 20 pg (25-35) Mean Corpuscular Hemoglobin Concent 30 g/dL (31-37) Red Cell Distribution Width 23.4 % (11.5-14.5) Platelet Count 302 x10^3/uL (140-400) Neutrophils (%) (Auto) 75 % (31-73) Lymphocytes (%) (Auto) 19 % (24-48) Monocytes (%) (Auto) 6 % (0-9) Eosinophils (%) (Auto) 0 % (0-3) Basophils (%) (Auto) 0 % (0-3) Neutrophils # (Auto) 10.2 x10^3uL (1.8-7.7) Lymphocytes # (Auto) 2.6 x10^3/uL (1.0-4.8) Monocytes # (Auto) 0.9 x10^3/uL (0.0-1.1) Eosinophils # (Auto) 0.0 x10^3/uL (0.0-0.7) Basophils # (Auto) 0.0 x10^3/uL (0.0-0.2) Segmented Neutrophils % 76 % (35-66) Band Neutrophils % 5 % (0-9) Lymphocytes % 12 % (24-48) Monocytes % 7 % (0-10) Platelet Estimate Adequate (ADEQUATE) Large Platelets Occ Polychromasia Present Poikilocytosis Present Anisocytosis Marked Microcytosis Marked Target Cells Present Tear Drop Cells Few Ovalocytes Few Marie Cells Few Schistocytes Few RBC Morphology Bizarre Forms Few Sodium Level 144 mmol/L (136-145) Potassium Level 3.8 mmol/L (3.5-5.1) Chloride Level 106 mmol/L (98-107) Carbon Dioxide Level 28 mmol/L (21-32) Anion Gap 10 (6-14) Blood Urea Nitrogen 22 mg/dL (8-26) Creatinine 0.8 mg/dL (0.7-1.3) Estimated GFR (Cockcroft-Gault) 113.4 BUN/Creatinine Ratio 28 (6-20) Glucose Level 121 mg/dL (70-99) Calcium Level 8.6 mg/dL (8.5-10.1) Total Bilirubin 0.2 mg/dL (0.2-1.0) Aspartate Amino Transf (AST/SGOT) 29 U/L (15-37) Alanine Aminotransferase (ALT/SGPT) 32 U/L (16-63) Alkaline Phosphatase 60 U/L (46-116) Total Protein 6.0 g/dL (6.4-8.2) Albumin 2.7 g/dL (3.4-5.0) Albumin/Globulin Ratio 0.8 (1.0-1.7) Laboratory Tests Test 01/29/19 04:05 White Blood Count 13.7 x10^3/uL (4.0-11.0) Red Blood Count 4.25 x10^6/uL (4.30-5.70) Hemoglobin 8.6 g/dL (13.0-17.5) Hematocrit 28.4 % (39.0-53.0) Mean Corpuscular Volume 67 fL (79-100) Mean Corpuscular Hemoglobin 20 pg (25-35) Mean Corpuscular Hemoglobin Concent 30 g/dL (31-37) Red Cell Distribution Width 23.4 % (11.5-14.5) Platelet Count 302 x10^3/uL (140-400) Neutrophils (%) (Auto) 75 % (31-73) Lymphocytes (%) (Auto) 19 % (24-48) Monocytes (%) (Auto) 6 % (0-9) Eosinophils (%) (Auto) 0 % (0-3) Basophils (%) (Auto) 0 % (0-3) Neutrophils # (Auto) 10.2 x10^3uL (1.8-7.7) Lymphocytes # (Auto) 2.6 x10^3/uL (1.0-4.8) Monocytes # (Auto) 0.9 x10^3/uL (0.0-1.1) Eosinophils # (Auto) 0.0 x10^3/uL (0.0-0.7) Basophils # (Auto) 0.0 x10^3/uL (0.0-0.2) Segmented Neutrophils % 76 % (35-66) Band Neutrophils % 5 % (0-9) Lymphocytes % 12 % (24-48) Monocytes % 7 % (0-10) Platelet Estimate Adequate (ADEQUATE) Large Platelets Occ Polychromasia Present Poikilocytosis Present Anisocytosis Marked Microcytosis Marked Target Cells Present Tear Drop Cells Few Ovalocytes Few [place] Cells Few Schistocytes Few RBC Morphology Bizarre Forms Few Sodium Level 144 mmol/L (136-145) Potassium Level 3.8 mmol/L (3.5-5.1) Chloride Level 106 mmol/L (98-107) Carbon Dioxide Level 28 mmol/L (21-32) Anion Gap 10 (6-14) Blood Urea Nitrogen 22 mg/dL (8-26) Creatinine 0.8 mg/dL (0.7-1.3) Estimated GFR (Cockcroft-Gault) 113.4 BUN/Creatinine Ratio 28 (6-20) Glucose Level 121 mg/dL (70-99) Calcium Level 8.6 mg/dL (8.5-10.1) Total Bilirubin 0.2 mg/dL (0.2-1.0) Aspartate Amino Transf (AST/SGOT) 29 U/L (15-37) Alanine Aminotransferase (ALT/SGPT) 32 U/L (16-63) Alkaline Phosphatase 60 U/L (46-116) Total Protein 6.0 g/dL (6.4-8.2) Albumin 2.7 g/dL (3.4-5.0) Albumin/Globulin Ratio 0.8 (1.0-1.7) Medications Current Medications Meclizine HCl (Antivert) 25 mg 1X ONCE PO Last administered on 01/24/19 13:00 ; Start 01/24/19 at 12:15; Stop 01/24/19 at 12:16; Status DC Albuterol Sulfate (Ventolin Neb Soln) 2.5 mg RTQID NEB Last administered on 01/24 17:09; Start 01/24/19 at 20:00; Stop 01/24/19 at 20:00; Status DC Albuterol Sulfate (Ventolin Neb Soln) 2.5 mg PRN Q4HRS PRN NEB SHORTNESS OF BREATH Last administered on 01/27/19 09:16; Start 01/24/19 at 17:15 Pharmacy Consult (C.diff Med Screen By Rx) 1 each 1X ONCE [facility] Last administered on 01/24/19 17:45; Start 01/24/19 at 17:45; Stop 01/24/19 at 17:46; Status DC Clopidogrel Bisulfate (Plavix) 75 mg DAILY PO Last administered on 01/29/19 08 :49; Start 01/24/19 at 18:30 Digoxin (Lanoxin) 125 mcg DAILY PO Last administered on 01/29/19 08:42; Start 01/25/19 at 09:00 Doxycycline Hyclate (Vibra-Tab) 100 mg BID PO ; Start 01/24/19 at 21:00; Status UNV Gabapentin (Neurontin) 300 mg PRN TID PRN PO NEUROPATHIC PAIN Last administered on 4/12/19at 13:58; Start 01/24/19 at 18:00 Albuterol/ Ipratropium (Duoneb) 3 ml QIDPRN PRN NEB SHORTNESS OF BREATH; Start 01/24/19 at 18:00; Status UNV Albuterol/ Ipratropium (Duoneb) 3 ml RTQID NEB Last administered on 01/29/19 09:18; Start 01/24/19 at 20:00 Rivaroxaban (Xarelto) 20 mg DAILYWSUP PO Last administered on 01/26/19at 17:30; Start 01/25/19 at 19:00; Stop 01/27/19 at 11:43; Status DC Trazodone HCl (Desyrel) 100 mg QHS PO Last administered on 01/28/19 20:34; Start 01/24/19 at 21:00 Info (Anti-Coagulation Monitoring By Pharmacy) 1 each PRN DAILY PRN [facility] SEE COMMENTS; Start 01/24/19 at 19:45; Stop 01/28/19 at 15:50; Status DC Sodium Chloride 1,000 ml @ 75 mls/hr [id number] IV Last administered on 01/25/19 20:39; Start 01/25/19 at 10:00; Stop 01/26/19 at 11:51; Status DC Diphenhydramine HCl (Benadryl) 25 mg 1X ONCE PO ; Start 01/25/19 at 11:30; Stop 01/25/19 at 11:31; Status Cancel Diphenhydramine HCl (Benadryl Oral Elixir) 12.5 mg 1X ONCE PO Last administered on 01/25/19at 12:17; Start 01/25/19 at 11:30; Stop 01/25/19 at 11:31; Status DC Fludrocortisone Acetate (Florinef) 0.1 mg DAILY PO Last administered on 08:39; Start 01/25/19 at 14:30 Budesonide (Pulmicort) 0.5 mg RTBID NEB Last administered on 01/29/19 08:00; Start 01/25/19 at 20:00 Midodrine (Proamatine) 2.5 mg [id number] PO Last administered on 01/29/19 07:15; Start 01/25/19 at 19:00 Methylprednisolone Sodium Succinate (SOLU-Medrol 40MG VIAL) 40 mg Q8HRS IV Last administered on 01/28/19 06:15; Start 01/26/19 at 15:00; Stop 01/28/19 at 07:15; Status DC Ceftriaxone Sodium (Rocephin) 1 gm Q24H IVP Last administered on 01/28/19 15: 03; Start 01/26/19 at 15:00; Stop 01/28/19 at 15:51; Status DC Diphenhydramine HCl (Benadryl Oral Elixir) 12.5 mg PRN Q6HRS PRN PO ITCHING Last administered on 01/28/19 20:34; Start 01/26/19 at 15:45 Amiodarone HCl (Cordarone) 200 mg DAILY PO Last administered on 01/29/19 08:43 ; Start 01/27/19 at 11:45 Aspirin (Ecotrin) 81 mg DAILYWBKFT PO Last administered on 01/29/19 08:41; Start 01/27/19 at 12:30 Fluticasone Propionate (Flonase) 2 spray DAILY NS Last administered on 08:43; Start 01/28/19 at 09:00 Polysaccharide Iron Complex (Niferex 150) 150 mg DAILY PO Last administered on 01/29/19 08:39; Start 01/28/19 at 09:00 Lactobacillus Rhamnosus (Culturelle) 1 cap BID PO Last administered on 08:40; Start 01/27/19 at 21:00 Prednisone (Prednisone) 40 mg DAILY PO Last administered on 01/29/19 08:42; Start 01/28/19 at 09:00 Polyethylene Glycol (miraLAX PACKET) 17 gm DAILY PO Last administered on 08:39; Start 01/28/19 at 09:00 Docusate Sodium (Colace) 100 mg DAILY PO Last administered on 01/29/19 08:43; Start 01/28/19 at 09:00 Guaifenesin (Mucinex) 600 mg BID PO Last administered on 01/29/19 08:43; Start 01/28/19 at 12:00 Amoxicillin/ Clavulanate Potassium (Augmentin 875/ 125mg) 1 tab BID PO Last administered on 01/29/19at 08:39; Start 01/29/19 at 09:00; Stop 02/01/19 at 21:01 Lubiprostone (Amitiza) 8 mcg BIDWMEALS PO ; Start 01/28/19 at 20:30; Stop at 20:38; Status DC Lubiprostone (Amitiza) 24 mcg BIDWMEALS PO ; Start 01/28/19 at 20:38; Stop 01/28 at 21:34; Status DC Lubiprostone (Amitiza) 24 mcg BIDWMEALS PO Last administered on 01/29/19at 08:40 ; Start 01/28/19 at 22:00 Tramadol HCl (Ultram) 50 mg 1X ONCE PO Last administered on 01/29/19at 08:41; Start 01/29/19 at 07:45; Stop 01/29/19 at 07:46; Status DC Active Scripts Active Doxycycline Hyclate 100 Mg Tablet 1 Tab PO BID 3 Days Betapace (Sotalol Hcl) 80 Mg Tablet 40 Mg PO BID 30 Days Duoneb 0.5-3(2.5) Mg/3 Ml (Albuterol/Ipratropium) 3 Ml Ampul.neb 3 Ml NEB RTQID 30 Days Vitamin B-1 (Thiamine Mononitrate) 100 Mg Tablet 100 Mg PO DAILY 30 Days [Pantoprazole] 40 MG Tablet.dr 40 Mg PO DAILYAC 30 Days Proair Hfa Inhaler (Albuterol Sulfate) 8.5 Gm Hfa.aer.ad 1 Puff INH PRN Q6HRS PRN Reported Trazodone Hcl 100 Mg Tablet 100 Mg PO QHS Oxycodone Hcl 20 Mg Tablet 20 Mg PO TID PRN PRN Duoneb 0.5-3(2.5) Mg/3 Ml (Albuterol/Ipratropium) 3 Ml Ampul.neb 3 Ml NEB QIDPRN PRN Remeron (Mirtazapine) 15 Mg Tablet 1 Tab PO QHS Xarelto (Rivaroxaban) 15 Mg Tablet 20 Mg PO HS Simvastatin 20 Mg Tablet 1 Tab PO QHS Gabapentin (Gabapentin) 300 Mg Capsule 300 Mg PO PRN TID PRN can take 1 or 2 capsules Plavix (Clopidogrel Bisulfate) 75 Mg Tablet 75 Mg PO DAILY Digoxin 125 Mcg Tablet 125 Mcg PO DAILY Vitals/I & O Vital Sign - Last 24 Hours 01/28/19 01/28/19 01/28/19 01/28/19 11:00 11:33 11:33 12:26 Temp 98.4 98.4 Pulse 85 91 98 Resp 18 B/P (MAP) 106/62 (77) 102/75 (84) 102/64 (77) Pulse Ox 95 95 95 95 O2 Delivery Room Air Room Air Room Air Nasal Cannula O2 Flow Rate 2.0 01/28/19 01/28/19 01/28/19 01/28/19 13:58 15:00 16:39 18:00 Temp 98.1 98.1 Pulse 98 98 50 Resp 18 B/P (MAP) 102/64 113/48 (69) 148/58 Pulse Ox 94 O2 Delivery Room Air Nasal Cannula O2 Flow Rate 2.0 01/28/19 01/28/19 01/28/19 01/28/19 19:20 20:00 21:29 23:25 Temp 98.7 98.4 98.7 98.4 Pulse 93 115 Resp 16 16 B/P (MAP) 105/47 (66) 108/46 (66) Pulse Ox 95 95 100 O2 Delivery Room Air Room Air Room Air Room Air O2 Flow Rate 2.0 01/29/19 01/29/19 01/29/19 01/29/19 03:56 07:00 07:15 08:41 Temp 97.5 98.4 97.5 98.4 Pulse 85 85 Resp 16 16 16 B/P (MAP) 113/70 (84) 122/80 (94) 122/80 Pulse Ox 96 95 O2 Delivery Room Air Room Air Room Air 01/29/19 01/29/19 01/29/19 08:42 08:43 09:18 Pulse 85 85 B/P (MAP) 122/80 122/80 O2 Delivery Room Air Intake and Output 01/28/19 01/28/19 01/29/19 15:00 23:00 07:00 Intake Total 225 ml 440 ml 240 ml Balance 225 ml 440 ml 240 ml Nutrition Consultation Dietary Evaluation: Recommendations by RD: Increase Calorie Intake, Protein supplementation Comments: ensure tid Expected Outcomes/Goals: to meet > 75% est nutr needs Interpretation of weight loss: >20% in 1 year Malnutrition Findings: Food and Nutrition Intake (Mod: <75% est energy req 7days Weight Status: Underweight CESILIA MURPHY MD Jan 29, 2019 09:51
[2019-01-29] MEDS ORDERED: BISACODYL 10 MG SUPP.RECT. PR ONE (14:45)
--- NOTE | 2019-01-29 17:39 | PDOC ---
PROGRESS NOTES Subjective He continues to be orthostatic and has not had a BM and is still coughing up discolored mucous. Objective Afebrile BP: systolic in the 60s with standing General: NAD, A&O, comfortable laying in bed Heart: RRR Lungs: loose productive cough but CTA Abd: soft and non tender, unable to wear abdominal binder due to chronic back pain Ext: no C/C/E WBC: [] Hgb: [] K+: [] Creat: [] Vital Signs Vital Signs Date Time Temp Pulse Resp B/P (MAP) Pulse Ox O2 Delivery O2 Flow Rate FiO2 01/29/19 15:53 96 Room Air 01/29/19 15:38 155 64/40 (48) 01/29/19 15:00 98.7 16 98.7 01/28/19 20:00 2.0 I & O Intake and Output 01/29/19 07:00 Intake Total 905 ml Balance 905 ml Intake Oral 905 ml # Voids 4 Assessment and Plan (1) Anemia , iron deficient, may need IV iron infusion, continue po for now Status: Acute (2) Atrial fibrillation - chronic - continue meds including Xarelto, no evidence of acute blood loss Status: Acute (3) dizziness from orthostasis - fluid bolus, midodrine, consider transfusion (4) bronchitis - continue antibiotic Nutrition Consultation Dietary Evaluation: Recommendations by RD: Increase Calorie Intake, Protein supplementation Comments: ensure tid Expected Outcomes/Goals: to meet > 75% est nutr needs Interpretation of weight loss: >20% in 1 year Malnutrition Findings: Food and Nutrition Intake (Mod: <75% est energy req 7days Weight Status: Underweight Hazel MEADOWS MD Jan 29, 2019 17:39
[2019-01-29] MEDS ORDERED: IV NORMAL SALINE 1000ML BAG 1,000 ML IV ONE (17:45)
[2019-01-29] MEDS ORDERED: METHYLNALTREXONE 12 MG/0.6 ML VIAL. SQ ONE (17:45)
--- NOTE | 2019-01-29 19:36 | NUR ---
Evening midodrine non-administered. This nurse spoke with Dr. Zepeda about pt. orthostatic vital signs this afternoon. Dr. Zepeda told this nurse to hold the midodrine and administer a 1000ml bolus of NS instead. Will continue to monitor.
[2019-01-29] MEDS: traZODone 100 MG TABLET. PO SCH (20:43)
[2019-01-30 03:27] LABS: FECAL OB PT NEGATIVE (NEG)
[2019-01-30 03:30] VITALS: BP 111/74
[2019-01-30 08:00] VITALS: BP 112/82
[2019-01-30] MEDS: BUDESONIDE 0.5 MG/2 ML NEBU. NEB SCH (08:00)
[2019-01-30 08:03] VITALS: BP 113/74
[2019-01-30] MEDS: IPRATRPIUM/ALBUTEROL 0.5/2.5MG 3 ML NEBU. NEB SCH ×2 (08:04→11:36)
[2019-01-30 08:05] VITALS: BP 88/62
[2019-01-30 08:10] LABS: BASO % 0 % (0-3); EOS % 1 % (0-3); HEMATOCRIT 28.7 % (39.0-53.0); HEMOGLOBIN 8.7 g/dL (13.0-17.5); LYMPH # 3.8 x10^3/uL (1.0-4.8); LYMPH % 46 % (24-48); MEAN CORPUSCULAR HEMOGLOBIN 20 pg (25-35); MEAN CORPUSCULAR HGB CONC 30 g/dL (31-37); MEAN CORPUSCULAR VOLUME 67 fL (79-100); MONO # 0.6 x10^3/uL (0.0-1.1); MONO % 8 % (0-9); NEUT # 3.8 x10^3uL (1.8-7.7); NEUT % 46 % (31-73); PLATELET COUNT 296 x10^3/uL (140-400); RED BLOOD COUNT 4.27 x10^6/uL (4.30-5.70); RED CELL DISTRIBUTION WIDTH 23.3 % (11.5-14.5); WHITE BLOOD COUNT 8.4 x10^3/uL (4.0-11.0)
--- NOTE | 2019-01-30 08:11 | PDOC ---
PULMONARY PROGRESS NOTES Subjective sob better, has cough, nasal congestion, no pain, no dizziness Vitals Vital Signs Date Time Temp Pulse Resp B/P (MAP) Pulse Ox O2 Delivery O2 Flow Rate FiO2 01/30/19 08:05 91 88/62 (71) 01/30/19 08:04 96 Room Air 01/30/19 03:30 97.8 20 97.8 ROS: No Nausea General: Alert, No acute distress HEENT: Other (nc at perrl ) Lungs: Crackles Cardiovascular: S1, S2 Abdomen: Soft, Non-tender Neuro Exam: Alert Extremities: No Edema Skin: Warm Labs Laboratory Tests Test 01/29/19 04:05 01/30/19 00:10 White Blood Count 13.7 x10^3/uL (4.0-11.0) Red Blood Count 4.25 x10^6/uL (4.30-5.70) Hemoglobin 8.6 g/dL (13.0-17.5) Hematocrit 28.4 % (39.0-53.0) Mean Corpuscular Volume 67 fL (79-100) Mean Corpuscular Hemoglobin 20 pg (25-35) Mean Corpuscular Hemoglobin Concent 30 g/dL (31-37) Red Cell Distribution Width 23.4 % (11.5-14.5) Platelet Count 302 x10^3/uL (140-400) Neutrophils (%) (Auto) 75 % (31-73) Lymphocytes (%) (Auto) 19 % (24-48) Monocytes (%) (Auto) 6 % (0-9) Eosinophils (%) (Auto) 0 % (0-3) Basophils (%) (Auto) 0 % (0-3) Neutrophils # (Auto) 10.2 x10^3uL (1.8-7.7) Lymphocytes # (Auto) 2.6 x10^3/uL (1.0-4.8) Monocytes # (Auto) 0.9 x10^3/uL (0.0-1.1) Eosinophils # (Auto) 0.0 x10^3/uL (0.0-0.7) Basophils # (Auto) 0.0 x10^3/uL (0.0-0.2) Segmented Neutrophils % 76 % (35-66) Band Neutrophils % 5 % (0-9) Lymphocytes % 12 % (24-48) Monocytes % 7 % (0-10) Platelet Estimate Adequate (ADEQUATE) Large Platelets Occ Polychromasia Present Poikilocytosis Present Anisocytosis Marked Microcytosis Marked Target Cells Present Tear Drop Cells Few Ovalocytes Few [place] Cells Few Schistocytes Few RBC Morphology Bizarre Forms Few Sodium Level 144 mmol/L (136-145) Potassium Level 3.8 mmol/L (3.5-5.1) Chloride Level 106 mmol/L (98-107) Carbon Dioxide Level 28 mmol/L (21-32) Anion Gap 10 (6-14) Blood Urea Nitrogen 22 mg/dL (8-26) Creatinine 0.8 mg/dL (0.7-1.3) Estimated GFR (Cockcroft-Gault) 113.4 BUN/Creatinine Ratio 28 (6-20) Glucose Level 121 mg/dL (70-99) Calcium Level 8.6 mg/dL (8.5-10.1) Total Bilirubin 0.2 mg/dL (0.2-1.0) Aspartate Amino Transf (AST/SGOT) 29 U/L (15-37) Alanine Aminotransferase (ALT/SGPT) 32 U/L (16-63) Alkaline Phosphatase 60 U/L (46-116) Total Protein 6.0 g/dL (6.4-8.2) Albumin 2.7 g/dL (3.4-5.0) Albumin/Globulin Ratio 0.8 (1.0-1.7) Stool Occult Blood Negative (NEG) Laboratory Tests Test 01/30/19 00:10 Stool Occult Blood Negative (NEG) Medications Active Scripts Medications Dose Route/Sig Max Daily Dose Days Date Category Dose Instructions Doxycycline Hyclate 100 Mg Tablet 1 Tab PO BID 3 12/14/18 Rx Trazodone Hcl 100 Mg Tablet 100 Mg PO QHS 12/10/18 Reported Oxycodone Hcl 20 Mg Tablet 20 Mg PO TID PRN PRN 12/10/18 Reported Betapace (Sotalol Hcl) 80 Mg Tablet 40 Mg PO BID 30 11/05/18 Rx Duoneb 0.5-3(2.5) Mg/3 Ml (Albuterol/Ipratropium) 3 Ml Ampul.neb 3 Ml NEB RTQID 30 11/05/18 Rx Vitamin B-1 (Thiamine Mononitrate) 100 Mg Tablet 100 Mg PO DAILY 30 08/23/18 Rx [Pantoprazole] 40 MG Tablet.dr 40 Mg PO DAILYAC 30 08/23/18 Rx Duoneb 0.5-3(2.5) Mg/3 Ml (Albuterol/Ipratropium) 3 Ml Ampul.neb 3 Ml NEB QIDPRN PRN 08/16/18 Reported Remeron (Mirtazapine) 15 Mg Tablet 1 Tab PO QHS 08/16/18 Reported Proair Hfa Inhaler (Albuterol Sulfate) 8.5 Gm Hfa.aer.ad 1 Puff INH PRN Q6HRS PRN 07/01/18 Rx Xarelto (Rivaroxaban) 15 Mg Tablet 20 Mg PO HS 03/26/15 Reported Simvastatin 20 Mg Tablet 1 Tab PO QHS 10/18/14 Reported Gabapentin (Gabapentin) 300 Mg Capsule 300 Mg PO PRN TID PRN 01/29/14 Reported can take 1 or 2 capsules Plavix (Clopidogrel Bisulfate) 75 Mg Tablet 75 Mg PO DAILY 01/29/14 Reported Digoxin 125 Mcg Tablet 125 Mcg PO DAILY 01/29/14 Reported Impression . 1. Dizziness related to orthostasis. resolved. Cardiology has been following. 2. Dyspnea with faint bronchospasm related to acute exacerbation of chronic obstructive pulmonary disease. 3. No definite consolidation seen on the chest x-ray./ acute Bronchitis clinically Plan . 1. Continue with present bronchodilators with DuoNeb. prednisone 40 mg daily w taper by 10 mg q 3d 3. Xarelto for AFib, per primary. 4. Monitoring of orthostasis closely per Cardiology. 5. add singulair, has cough, nasal congestion 6. cont flonase. 7. cont Abx, augmentin, total abx for 7 days 8. Discussed with RN, pt. ALYSIA GARCIA MD Jan 30, 2019 08:11
[2019-01-30] MEDS: LUBIPROSTONE 8 MCG CAPSULE PO SCH (09:00)
[2019-01-30] MEDS: LACTOBACILLUS RHAMNOSUS GG 1 CAPSULE. PO SCH (09:00)
[2019-01-30] MEDS: POLYETHYLENE GLYCOL 3350 17 GM PACKET. PO SCH (09:00)
[2019-01-30] MEDS: DOCUSATE SODIUM 100 MG CAPSULE. PO SCH (09:01)
[2019-01-30] MEDS: IRON POLYSACCHARIDE COMPLEX 150 MG CAPSULE PO SCH (09:01)
[2019-01-30] MEDS: ASPIRIN ENTERIC COATED 81 MG TABLET.DR. PO SCH (09:01)
[2019-01-30] MEDS: predniSONE 20 MG TABLET PO SCH (09:01)
[2019-01-30] MEDS: MIDODRINE 2.5 MG TABLET PO SCH ×2 (09:01→13:27)
[2019-01-30] MEDS: AMOXICILLIN/K CLAV 875/125MG TABLET. PO SCH (09:01)
[2019-01-30] MEDS: FLUDROCORTISONE 0.1 MG TABLET PO SCH (09:01)
[2019-01-30] MEDS: CLOPIDOGREL BISULFATE 75 MG TABLET PO SCH (09:02)
[2019-01-30] MEDS: DIGOXIN 125 MCG TABLET. PO SCH (09:02)
[2019-01-30] MEDS: AMIODARONE HCL 200 MG TABLET. PO SCH (09:03)
[2019-01-30] MEDS: FLUTICASONE 50MCG/NASAL SPRAY 16GM BOTTLE. NS SCH (09:03)
[2019-01-30 11:00] VITALS: BP 87/56
[2019-01-30 13:27] VITALS: BP 87/56
[2019-01-30] MEDS ORDERED: AMOX1TAB11 PO (13:42)
[2019-01-30] MEDS ORDERED: MONT10TA9 PO (13:42)
[2019-01-30] MEDS ORDERED: IRON150C11 PO (13:42)
[2019-01-30] MEDS ORDERED: LUBI8CAP4 PO (13:42)
[2019-01-30] MEDS ORDERED: MIDO2.5T PO (13:42)
[2019-01-30] MEDS ORDERED: FLUD0.1T PO (13:42)
[2019-01-30] MEDS ORDERED: LACT1CAP19 PO (13:42)
[2019-01-30] MEDS ORDERED: FLUT1DIS3 IH (13:42)
[2019-01-30] MEDS ORDERED: AMIO200T4 PO (13:42)
[2019-01-30] MEDS ORDERED: ASPI-630 PO (13:59)
[2019-01-30] MEDS ORDERED: PRED-220 PO (13:59)
--- NOTE | 2019-01-30 16:01 | NUR ---
Discharge Note: GENIA MCKENZIE [address] [place] [address] Discharge instructions and discharge home medications reviewed with Patient and a copy given. All questions have been answered and understanding verbalized. The following instructions and handouts were given: Diet, activity, medication list and follow up instructions provided to patient. Patient home with brother, given follow up appointment with Dr. Murillo and instructed to see Dr. Zepeda in 1-2 weeks. Discontinued lines and drains: Peripheral IV discontinued and catheter intact. Patient discharged to Home or Self Care with Family Member via Wheelchair
--- NOTE | 2019-01-30 20:27 | DS ---
DATE OF DISCHARGE: 01/30/2019 ADMISSION DIAGNOSIS: Dizziness. DISCHARGE DIAGNOSIS: Syncope from orthostatic hypotension. CONSULTS: Cardiology, Neurology, Pulmonology, rehabilitation medicine. ASSOCIATED DIAGNOSES: Iron deficiency anemia, chronic atrial fibrillation, acute bronchitis, chronic back pain, COPD, coronary artery disease, constipation. HOSPITAL COURSE: This is a 79-year-old -[place] Citizen male admitted with the above problem with multiple consultants was originally admitted to the hospitalist service, but he had an outpatient appointment to come in and see me and requested that I take over his care, which I have done the last couple of days. He has been stabilized with midodrine and Florinef for his orthostatic hypotension. It is still present, but he is managing without syncope. His back pain has been treated with medication. He has developed some opioid-induced constipation and that has been treated. His bowels are moving now. He feels steady. He did develop some flare of chronic bronchitis while here and was treated with antibiotics, neb treatments and inhaled steroids. He has had a history of allergies and uses Flonase at home. He does have occasional nosebleeds associated with that. His atrial fib was treated with amiodarone and anticoagulation. Her Plavix was stopped and Xarelto was started. Coronary artery disease was stable. He was hydrated. PT and OT evaluated him and he is safe for discharge home with his walker. He declines home health services. COMPLICATIONS: None. PROCEDURES: None. Imaging included chest x-ray, cervical spine abdominal arterial study, carotid Doppler study, chest x-ray and CT of his head. Lab studies show a stable anemia, hemoglobin dropping from 10.4-8.7 after hydration, but stable there. Chemistries show improved EGFR from admission of 78-113 at discharge. Toxicology screen was negative. Stool was negative for occult blood. Echocardiogram showed an EF of 60-65% with trace tricuspid regurgitation. PA pressure was 33. Septal motion suggestive conduction defect. DISCHARGE MEDICATIONS: To include amiodarone 200 mg daily, amoxicillin, potassium clavulanate 875/125 one b.i.d. for 7 more days, Florinef 0.1 mg daily, Advair 250/50 one puff b.i.d., poly iron 150 mg capsule daily for anemia, lactobacillus rhamnosus capsule b.i.d. for 10 days, Amitiza 24 mcg b.i.d. for constipation, midodrine 2.5 mg t.i.d. for orthostasis, montelukast sodium 10 mg at bedtime for his lungs. He will continue on his albuterol and DuoNeb at home, his Plavix is stopped the Xarelto was started 20 mg daily. Continue pantoprazole 40 mg daily, trazodone 100 mg at bedtime, vitamin B 100 mg daily, sotalol 40 mg b.i.d., simvastatin 20 mg at bedtime, oxycodone 20 mg t.i.d. p.r.n. pain, #30 and mirtazapine is stopped, gabapentin was continued 300 mg t.i.d., doxycycline and stopped, digoxin is a continued 125 mcg daily. Follow up with me in a week or two. W Ceasar MEADOWS MD DR: KAY/tess JOB#: [id number] / [id number]
[2019-01-30] MEDS ORDERED: MONTELUKAST SODIUM 10 MG TABLET. PO SCH (21:00)
[2019-03-04] MEDS ORDERED: RIVA15TA PO (17:06)
== END 2019-01-30 15:10 | disposition home or self-care (01) | DRG 871 ==
LOC: ER 11:30 → 6 SOUTH 13:37
PROVIDERS: ADMIT Internal Medicine; ATTEND Internal Medicine
DX: A41.9 Sepsis, unspecified organism (principal); J96.00 Acute respiratory failure, unspecified whether with hypoxia or hypercapnia; I42.9 Cardiomyopathy, unspecified; J44.0 Chronic obstructive pulmonary disease with (acute) lower respiratory infection; J44.1 Chronic obstructive pulmonary disease with (acute) exacerbation; I95.1 Orthostatic hypotension; I48.91 Unspecified atrial fibrillation; I11.0 Hypertensive heart disease with heart failure; I50.9 Heart failure, unspecified; J20.9 Acute bronchitis, unspecified; D50.9 Iron deficiency anemia, unspecified; E78.5 Hyperlipidemia, unspecified; G89.29 Other chronic pain; I25.10 Atherosclerotic heart disease of native coronary artery without angina pectoris; I25.2 Old myocardial infarction; I48.0 Paroxysmal atrial fibrillation; I48.2 Chronic atrial fibrillation; I71.4 Abdominal aortic aneurysm, without rupture; I72.3 Aneurysm of iliac artery; J98.4 Other disorders of lung; K21.9 Gastro-esophageal reflux disease without esophagitis; K59.03 Drug induced constipation; M25.78 Osteophyte, vertebrae; M46.90 Unspecified inflammatory spondylopathy, site unspecified; M47.812 Spondylosis without myelopathy or radiculopathy, cervical region; M50.30 Other cervical disc degeneration, unspecified cervical region; M51.36 Other intervertebral disc degeneration, lumbar region; N40.0 Benign prostatic hyperplasia without lower urinary tract symptoms; N28.1 Cyst of kidney, acquired; T40.2X5A Adverse effect of other opioids, initial encounter; Z79.01 Long term (current) use of anticoagulants; Z79.02 Long term (current) use of antithrombotics/antiplatelets; Z86.73 Personal history of transient ischemic attack (TIA), and cerebral infarction without residual deficits; Z86.79 Personal history of other diseases of the circulatory system; Z87.891 Personal history of nicotine dependence; Z95.0 Presence of cardiac pacemaker; Z95.1 Presence of aortocoronary bypass graft; Z95.5 Presence of coronary angioplasty implant and graft; Z95.810 Presence of automatic (implantable) cardiac defibrillator; G51.0 Bell's palsy; Z68.22 Body mass index [BMI] 22.0-22.9, adult; R63.6 Underweight
CPT/HCPCS: 36415; 70450; 71045; 71046; 72125; 76770; 80048; 80053; 80307; 81001; 82274; 82550; 82607; 82962; 83735; 83880; 84439; 84443; 84481; 84484; 85007; 85025; 85610; 93005; 93306; 93880; 94640; 94760; J0696; J2212; J2920; J7030; J7512; J7613; J7620; J7626; J8597; 97110; 97116; 97530; 97535; 99285-25

== ENCOUNTER 2019-02-28 19:03 | Inpatient (IN) | payer MEDICARE, BC ==
[~2019-02-28] VITALS: Ht 190.5 cm; Wt 75.4 kg
[~2019-02-28 19:03] MED LIST changes: +AMIO200T4 PO; +FLUD0.1T PO; +FLUT1DIS3 IH; +IRON150C11 PO; +LACT1CAP19 PO; +LUBI8CAP4 PO; +MIDO2.5T PO; +MONT10TA9 PO; +PRED-220 PO
[2019-02-28 19:34] LABS: BASO % 1 % (0-3); EOS # 0.1 x10^3/uL (0.0-0.7); EOS % 1 % (0-3); HEMATOCRIT 32.1 % (39.0-53.0); HEMOGLOBIN 9.8 g/dL (13.0-17.5); LYMPH # 3.2 x10^3/uL (1.0-4.8); LYMPH % 50 % (24-48); MEAN CORPUSCULAR HEMOGLOBIN 22 pg (25-35); MEAN CORPUSCULAR HGB CONC 30 g/dL (31-37); MEAN CORPUSCULAR VOLUME 71 fL (79-100); MONO # 0.4 x10^3/uL (0.0-1.1); MONO % 7 % (0-9); NEUT # 2.6 x10^3uL (1.8-7.7); NEUT % 41 % (31-73); PLATELET COUNT 345 x10^3/uL (140-400); RED CELL DISTRIBUTION WIDTH 30.9 % (11.5-14.5); WHITE BLOOD COUNT 6.3 x10^3/uL (4.0-11.0)
[2019-02-28 19:56] LABS: CALCIUM 8.9 mg/dL (8.5-10.1); GFR 87.7
[2019-02-28 20:06] LABS: ALBUMIN 3.4 g/dL (3.4-5.0); MAGNESIUM 1.8 mg/dL (1.8-2.4); TOTAL BILIRUBIN 0.6 mg/dL (0.2-1.0); TOTAL PROTEIN 6.8 g/dL (6.4-8.2)
[2019-02-28 20:13] LABS: PLT ESTIMATE ADEQUATE (ADEQUATE)
[2019-02-28 20:14] LABS: ANISOCYTOSIS MARKED; HYPOCHROMIA MOD; MICROCYTOSIS MOD; POIKILOCYTOSIS SLIGHT; TARGET CELLS PRESENT
[2019-02-28 20:15] LABS: BIZZARE CELLS FEW; SCHISTOCYTES FEW
[2019-02-28] MEDS ORDERED: fentaNYL PF VIAL 100 MCG/2 ML VIAL IV ONE (20:30)
[2019-02-28] MEDS ORDERED: ASPIRIN CHEWABLE 81 MG TABLET. PO ONE (23:00)
--- NOTE | 2019-02-28 23:04 | RAD ---
AP portable chest radiograph 02/28/2019 Clinical History: Mid sternal chest pain. An AP erect portable digital radiograph of the chest was obtained. Comparison study is dated 01/26/2019. A pacemaker is unchanged in position. The cardiac silhouette is normal in size. The thoracic aorta is tortuous. Atherosclerotic calcification of the thoracic aorta is seen. No acute pulmonary infiltrate is noted. No pneumothorax or pleural effusion is seen. Degenerative changes are seen involving the thoracic spine and both shoulders. IMPRESSION: No acute abnormality is seen. Electronically signed by: Blas Black MD (02/28/2019 11:01 PM) [facility]
--- NOTE | 2019-02-28 23:45 | RAD ---
NUCLEAR MEDICINE VENTILATION PERFUSION SCAN History: Midsternal chest pain, elevated d-dimer. Comparison: AP chest, same day. Technique: Patient initially ventilated with 23 mCi of xenon-133 gas. Anterior and posterior imaging of the lungs during initial breath-hold, equilibrium and, washout phase images is performed. Perfusion portion performed after intravenous administration of 6.6 mCi Technetium 99m MAA. Multiple projection planar images of the lungs were obtained. Findings: The initial breath-hold ventilation images are mildly heterogeneous. There is no retention of tracer on the washout phase images throughout both lungs. Perfusion images demonstrate a large mismatched segmental perfusion defect in the posterior left lower lobe. There is a moderate mismatched segmental perfusion defect in the posterior right lower lobe. IMPRESSION: 1. High probability for pulmonary embolus. 2. Diffuse air trapping is noted bilaterally. Findings discussed with DECLAN Damico APRN REFFITT at 02/28/2019 11:39 PM. FOR INTERNAL CODING PURPOSES Critical result: RESULT CODE: (C) Electronically signed by: Isaac Ramos MD (02/28/2019 11:42 PM) [id number]
[2019-02-28 23:56] LABS: PROTHROMBIN TIME PATIENT 13.5 SEC (11.7-14.0)
[2019-03-01 00:10] LABS: CREATINE KINASE 59 U/L (39-308)
[2019-03-01] MEDS ORDERED: HEPARIN for IV BOLUS 10,000 UNIT/10 ML VIAL. IV PRN ×2 (00:15)
[2019-03-01] MEDS ORDERED: HEPARIN for IV BOLUS 10,000 UNIT/10 ML VIAL. IV ONE (00:30)
[2019-03-01] MEDS: HEPARIN 25,000UTS/500ML PREMIX 500 ML IV PRN ×2 (00:40→21:56)
--- NOTE | 2019-03-01 01:44 | PHYS DOC ---
Past Medical History Past Medical History: COPD, Heart Disease, TIA Additional Past Medical Histor: BACK PAIN (DECLAN SHERWOOD APRN) Past Surgical History: Lumbar Laminectomy, Pacemaker, Other Additional Past Surgical Histo: esophagus; hernia; (DECLAN SHERWOOD APRN) Alcohol Use: Rarely Drug Use: None (DECLAN SHERWOOD APRN) Adult General Chief Complaint Chief Complaint: CHEST PAIN HPI HPI 79-year-old male presents to ER for POV for 3 day history of intermittent midsternal to upper epigastric pain. Patient states it has been like a tight band across to his upper abdomen intermittently. During initial discussion with patient he is denying any pain. Patient states pain comes suddenly and is sharp in nature. Patient denies any shortness of air, nausea or vomiting, dizziness, or urinary symptoms. Patient reports he has had regular bowel movement denies any dark tarry stools. Patient reports pain started after breakfast on Thursday morning and has been intermittent since. Patient states he was admitted into the hospital last month and was discharged on 01/30/19. Patient states he was seen by Dr. Zepeda his primary care physician on 02/07/19. Patient states she was taken off of his Xarelto and was best to be sent with a prescription for aspirin but he states he never got the prescription. Patient states he did take a Xarelto ye sterday as he had some in his medicine cabinet and with ongoing pain that he should take one. He shouldn't denies swelling in extremities. Patient denies cough, flulike symptoms, or fatigue. Patient reports appetite has been regular. In patient's record discharge summary from for [address] Zepeda states patient had his Plavix stopped and Xarelto 20 mg was started daily. Patient states he thought he had been told to stop taking the Xarelto. Patient is uncertain of daily medications. (DECLAN SHERWOOD APRN) Review of Systems Review of Systems Constitutional: Denies fever or chills [] Eyes: Denies change in visual acuity, redness, or eye pain [] HENT: Denies nasal congestion or sore throat [] Respiratory: Denies cough or shortness of breath [] Cardiovascular: Reports midsternal chest pain into mid epigastric area- reports feels like a tight band across his mid section GI: Denies abdominal pain, nausea, vomiting, bloody stools or diarrhea [] : Denies dysuria or hematuria [] Musculoskeletal: Denies back/neck pain or joint pain [] Integument: Denies rash, swelling or skin lesions [] Neurologic: Denies headache, focal weakness or sensory changes. Denies dizziness Endocrine: Denies polyuria or polydipsia [] All other systems were reviewed and found to be within normal limits, except as documented in this note. (DECLAN SHERWOOD APRN) Current Medications Current Medications Current Medications Medications (Trade) Dose Ordered Sig/Alma Rosa Start Time Stop Time Status Last Admin Dose Admin Fentanyl Citrate (Fentanyl 2ml Vial) 25 mcg 1X ONCE 02/28/19 20:30 02/28/19 20:31 DC 03/01/19 00:33 25 MCG (JULISSA CLEMENTS MD) Allergies Allergies Allergies Coded Allergies Type Severity Reaction Last Updated Verified Iodinated Contrast- Oral and IV Dye Allergy Severe anaphalaxis, short of air 06/06/15 Yes adhesive Allergy Severe PAINFUL SKIN IRRITATION 06/06/15 Yes latex Allergy Intermediate Hives 06/06/15 Yes (JULISSA CLEMENTS MD) Physical Exam Physical Exam Constitutional: Well developed, well nourished, no acute distress, non-toxic appearance. [] HENT: Normocephalic, atraumatic, oropharynx moist, nose normal. [] Eyes: PERRLA, conjunctiva normal, no discharge. [] Neck: Normal range of motion, no tenderness, supple, no stridor. [] Cardiovascular:Heart rate regular rhythm, no murmur [] Lungs & Thorax: Bilateral breath sounds clear to auscultation- resp. equal/nonlabored. Mid sternal CP is reproducible into mid epig. area Abdomen: Bowel sounds normal, soft- no distention/rigidity, no masses, no pulsatile masses. [] Skin: Warm, dry, no erythema, no rash. [] Back: No tenderness, no CVA tenderness. [] Extremities: No tenderness, no cyanosis, no clubbing, ROM intact, no edema. 2+ radial bilat. 2+ dorsalis pedis/posterior tibial Neurologic: Alert and oriented X 3, normal motor function, normal sensory function, no focal deficits noted. [] Psychologic: Affect normal, judgement normal, mood normal. [] (PRESLEYDECLAN Damico APRN) Current Patient Data Vital Signs Vital Signs Date Time Temp Pulse Resp B/P (MAP) Pulse Ox O2 Delivery O2 Flow Rate FiO2 02/28/19 22:15 68 20 146/82 (103) 98 Room Air 02/28/19 19:03 98.3 98.3 (JULISSA CLEMENTS MD) Lab Values Laboratory Tests Test 02/28/19 19:17 White Blood Count 6.3 x10^3/uL (4.0-11.0) Red Blood Count 4.50 x10^6/uL (4.30-5.70) Hemoglobin 9.8 g/dL (13.0-17.5) L Hematocrit 32.1 % (39.0-53.0) L Mean Corpuscular Volume 71 fL (79-100) L Mean Corpuscular Hemoglobin 22 pg (25-35) L Mean Corpuscular Hemoglobin Concent 30 g/dL (31-37) L Red Cell Distribution Width 30.9 % (11.5-14.5) H Platelet Count 345 x10^3/uL (140-400) Neutrophils (%) (Auto) 41 % (31-73) Lymphocytes (%) (Auto) 50 % (24-48) H Monocytes (%) (Auto) 7 % (0-9) Eosinophils (%) (Auto) 1 % (0-3) Basophils (%) (Auto) 1 % (0-3) Neutrophils # (Auto) 2.6 x10^3uL (1.8-7.7) Lymphocytes # (Auto) 3.2 x10^3/uL (1.0-4.8) Monocytes # (Auto) 0.4 x10^3/uL (0.0-1.1) Eosinophils # (Auto) 0.1 x10^3/uL (0.0-0.7) Basophils # (Auto) 0.0 x10^3/uL (0.0-0.2) Platelet Estimate Adequate (ADEQUATE) Hypochromasia Mod Poikilocytosis Slight Anisocytosis Marked Microcytosis Mod Target Cells Present Schistocytes Few RBC Morphology Bizarre Forms Few Prothrombin Time 13.5 SEC (11.7-14.0) Prothrombin Time INR 1.1 (0.8-1.1) PTT 29 SEC (24-38) D-Dimer (Uma) 1.49 ug/mlFEU (0.00-0.50) H Sodium Level 140 mmol/L (136-145) Potassium Level 4.0 mmol/L (3.5-5.1) Chloride Level 104 mmol/L (98-107) Carbon Dioxide Level 26 mmol/L (21-32) Anion Gap 10 (6-14) Blood Urea Nitrogen 12 mg/dL (8-26) Creatinine 1.0 mg/dL (0.7-1.3) Estimated GFR (Cockcroft-Gault) 87.7 BUN/Creatinine Ratio 12 (6-20) Glucose Level 112 mg/dL (70-99) H Calcium Level 8.9 mg/dL (8.5-10.1) Magnesium Level 1.8 mg/dL (1.8-2.4) Total Bilirubin 0.6 mg/dL (0.2-1.0) Aspartate Amino Transferase (AST) 24 U/L (15-37) Alanine Aminotransferase (ALT) 14 U/L (16-63) L Alkaline Phosphatase 82 U/L (46-116) Creatine Kinase 59 U/L (39-308) Creatine Kinase MB (Mass) 0.5 ng/mL (0.0-3.6) Creatine Kinase MB Relative Index % (0-4) Troponin I Quantitative 0.030 ng/mL (0.000-0.055) ZM-Vhs-P-Type Natriuretic Peptide 589 pg/mL (0-449) H Total Protein 6.8 g/dL (6.4-8.2) Albumin 3.4 g/dL (3.4-5.0) Albumin/Globulin Ratio 1.0 (1.0-1.7) Lipase 140 U/L (73-393) Digoxin Level 0.6 ng/mL (0.9-2.0) L Digoxin Last Dose Date Unknown Digoxin Last Dose Time Unknown Laboratory Tests 02/28/19 19:17 Laboratory Tests 02/28/19 19:17 (JULISSA CLEMENTS MD) EKG EKG EKG obtained 02/28/19 at [address] Clements Paced rhythm Rate 90 No STEMI (DECLAN SHERWOOD APRN) Radiology/Procedures Radiology/Procedures PROCEDURE: CHEST AP ONLY AP portable chest radiograph 02/28/2019 Clinical History: Mid sternal chest pain. An AP erect portable digital radiograph of the chest was obtained. Comparison study is dated 01/26/2019. A pacemaker is unchanged in position. The cardiac silhouette is normal in size. The thoracic aorta is tortuous. Atherosclerotic calcification of the thoracic aorta is seen. No acute pulmonary infiltrate is noted. No pneumothorax or pleural effusion is seen. Degenerative changes are seen involving the thoracic spine and both shoulders. IMPRESSION: No acute abnormality is seen. Electronically signed by: Blas Black MD (02/28/2019 11:01 PM) [facility] DICTATED and SIGNED BY: BLAS BLACK MD DATE: 02/28/196 PROCEDURE: LUNG VENT/PERFUSION SCAN(VQ) NUCLEAR MEDICINE VENTILATION PERFUSION SCAN History: Midsternal chest pain, elevated d-dimer. Comparison: AP chest, same day. Technique: Patient initially ventilated with 23 mCi of xenon-133 gas. Anterior and posterior imaging of the lungs during initial breath-hold, equilibrium and, washout phase images is performed. Perfusion portion performed after intravenous administration of 6.6 mCi Technetium 99m MAA. Multiple projection planar images of the lungs were obtained. Findings: The initial breath-hold ventilation images are mildly heterogeneous. There is no retention of tracer on the washout phase images throughout both lungs. Perfusion images demonstrate a large mismatched segmental perfusion defect in the posterior left lower lobe. There is a moderate mismatched segmental perfusion defect in the posterior right lower lobe. IMPRESSION: 1. High probability for pulmonary embolus. 2. Diffuse air trapping is noted bilaterally. Findings discussed with DECLAN SHERWOOD at 02/28/2019 11:39 PM. FOR INTERNAL CODING PURPOSES Critical result: RESULT CODE: (C) Electronically signed by: Isaac Ramos MD (02/28/2019 11:42 PM) [facility] (REFFITT,DECLAN Damico APRN) Course & Med Decision Making Course & Med Decision Making Pertinent Labs and Imaging studies reviewed. (See chart for details) Pt was evaluated in the ER for complaints of midsternal chest pain into upper epigastric area which started on Thursday and has been intermittent. Pt had chest x-ray, EKG, and labs obtained. EKG with no acute ST elevation or STEMI and troponin was 0.030. H&H was 9.8/32.1 which compared to patient's prior results is better than his last results. Chest x-ray with no acute findings. D-dimer elevated at 1.49 patient has allergy to IV contrast so VQ scan was ordered to further rule out PE as patient had been off of his Xarelto and presenting complaints. Discussed test results with patient as well as plan for VQ scan he did request pain medication so dose of fentanyl will be provided. Patient was provided with aspirin 324 mg by mouth. Patient is in no visible distress at time of discussion on test results. Discussed admission for further care and evaluation- he is agreeable with plan. 2245: Spoke with Dr. Rojas, manager content for pt's PCP Dr. Zepeda- discussed patient's case, test results, and plans for admission. Discussed patient's confusion on Xarelto and that he hadn't been taking the medication daily. VQ scan pending at time of discussion with Dr. Rojas. 2341: Radiologist called and reported patient's VQ scan was high probability for PE. Scan result was discussed with Dr. Clements along with pt's case/other test results. Orders placed for heparin protocol for PE treatment. Discussed VQ scan results with patient. (DECLAN SHERWOOD APRN) Course & Med Decision Making Staff Physician Addendum: I was working in the ER during the course of this patient's visit. I was available for consultation as needed, but I was not directly involved in the care of this patient. I did review the results as noted above (JULISAS CLEMENTS MD) Dragon Disclaimer Dragon Disclaimer This electronic medical record was generated, in whole or in part, using a voice recognition dictation system. (DECLAN SHERWOOD APRN) Departure Departure Impression: Primary Impression: Chest pain Additional Impression: PE (pulmonary embolism) Disposition: ADMITTED INPATIENT Admitting Physician: Ace Zepeda (DECLAN SHERWOOD APRN) Condition: STABLE Referrals: Hazel ZEPEDA MD (PCP) Problem Qualifiers DECLAN SHERWOOD APRN March 01, 2019 01:44 JULISSA CLEMENTS MD March 04, 2019 12:01
[2019-03-01] MEDS ORDERED: ACETAMINOPHEN 325 MG TABLET. PO PRN (01:45)
[2019-03-01 01:51] LABS: DIG 0.6 ng/mL (0.9-2.0)
[2019-03-01 02:00] VITALS: BP 157/88
[2019-03-01] MEDS: ANTI-COAG MONITOR BY PHARMACY. MC PRN ×2 (02:17→17:28)
[2019-03-01] MEDS: fentaNYL PF VIAL 100 MCG/2 ML VIAL IV PRN ×2 (04:52→08:44)
[2019-03-01] MEDS ORDERED: ALBUTEROL SULFATE 2.5 MG/3 ML NEBU. INH PRN (06:30)
--- NOTE | 2019-03-01 06:44 | EKG ---
[facility] [address] [place] [address] Test Date: 2019-02-28 Test Time: 19:08:03 Pat Name: GENIA MCKENZIE Department: Room: 263 1 Gender: M [employer] Applier: : [id number] Requested By: DECLAN SHERWOOD Order Number: [id number] Reading MD: Swapnil Tolliver Measurements Intervals [place] Rate: 89 P: TN: QRS: -82 QRSD: 168 T: 89 QT: 396 QTc: 488 Interpretive Statements VENTRICULAR PACED RHYTHM Electronically Signed On 03-25-2019 11:42:20 CDT by Swapnil Tolliver
[2019-03-01 07:00] VITALS: BP 121/63
--- NOTE | 2019-03-01 07:48 | RAD ---
Examination: VENOUS LOWER EXT BILATERAL History: Leg pain and pulmonary embolism. Comparison/Correlation: None FINDINGS: Bilateral lower extremity duplex venous ultrasound exam was performed. Grayscale, color Doppler, and spectral Doppler imaging was performed. Compression and augmentation was performed. The right common femoral vein, superficial femoral vein, popliteal vein, and greater saphenous vein are normal with no evidence of deep venous thrombus. Normal compressibility and augmentation is evident. Visualized calf veins are unremarkable. The left common femoral vein, superficial femoral vein, popliteal vein, and greater saphenous vein are normal with no evidence of deep venous thrombus. Normal compressibility and augmentation is evident. Visualized calf veins are unremarkable. IMPRESSION: Normal bilateral lower extremity duplex ultrasound exam. No evidence of deep venous thrombus involving the lower extremities. Electronically signed by: Valdez Baptiste MD (03/01/2019 7:45 AM) [facility]
[2019-03-01] MEDS ORDERED: IPRATRPIUM/ALBUTEROL 0.5/2.5MG 3 ML NEBU. NEB SCH (08:00)
[2019-03-01] MEDS: IRON POLYSACCHARIDE COMPLEX 150 MG CAPSULE PO SCH (08:46)
[2019-03-01] MEDS: GABAPENTIN 300 MG CAPSULE. PO PRN (08:46)
[2019-03-01] MEDS: LUBIPROSTONE 8 MCG CAPSULE PO SCH ×2 (08:46→17:28)
[2019-03-01] MEDS: FLUDROCORTISONE 0.1 MG TABLET PO SCH (08:47)
[2019-03-01] MEDS: DIGOXIN 125 MCG TABLET. PO SCH (08:47)
[2019-03-01] MEDS: PANTOPRAZOLE 40 MG TABLET.DR. PO SCH (08:47)
[2019-03-01] MEDS: ASPIRIN CHEWABLE 81 MG TABLET. PO SCH (08:47)
[2019-03-01] MEDS: AMIODARONE HCL 200 MG TABLET. PO SCH (08:48)
[2019-03-01] MEDS: MIDODRINE 2.5 MG TABLET PO SCH ×3 (08:48→17:29)
[2019-03-01] MEDS: oxyCODONE IR 5 MG TABLET PO PRN ×2 (08:49→20:13)
[2019-03-01] MEDS: IPRATRPIUM/ALBUTEROL 0.5/2.5MG 3 ML NEBU. NEB SCH ×4 (10:00→20:29)
[2019-03-01] MEDS: BUDESONIDE 0.5 MG/2 ML NEBU. NEB SCH ×2 (10:00→20:29)
[2019-03-01 11:00] VITALS: BP 127/67
--- NOTE | 2019-03-01 12:36 | CONS ---
DATE OF CONSULTATION: ATTENDING PHYSICIAN: Dr. Raheem Zepeda. REASON FOR CONSULTATION: Pulmonary embolism. HISTORY OF PRESENT ILLNESS: The patient is 79 years old who has been followed by my partner, Dr. Resendiz, for COPD. He also has a history of cardiomyopathy with previous AICD placement. The patient states that because of his back surgeries, he has been nonambulatory and pretty much bedbound. He was on Xarelto for over a year and stopped taking it about a month ago. The patient presented to the hospital with intermittent chest pain, which was radiating from the left to the right. It was pleuritic in nature. He said he did not have any significant shortness of breath. No headaches, no nausea, vomiting, no diarrhea. No dysuria. No focal weakness. He underwent imaging study including a V/Q scan, which showed high probability for pulmonary embolism. There was a mismatch defect, which is large in the posterior left lower lobe. There was also moderate mismatch perfusion defect in the right lower lobe. Venous Dopplers have been negative. He was started on heparin, and I have been asked to see him for further evaluation. PAST MEDICAL HISTORY: Significant for history of COPD, history of cardiomyopathy, history of AICD. PAST SURGICAL HISTORY: AICD. REVIEW OF SYSTEMS: Twelve-point system obtained. Pertinent positives discussed in my history of present illness, otherwise noncontributory. All systems that were negative reviewed as well. SOCIAL HISTORY: He smoked in the past. FAMILY HISTORY: Noncontributory to lungs. PHYSICAL EXAMINATION: VITAL SIGNS: Reviewed. Blood pressure is stable, afebrile, pulse ox 99% room air. NECK: Supple. LUNGS: Clear. CARDIOVASCULAR: Regular rate and rhythm. ABDOMEN: Soft, nontender. EXTREMITIES: With no pitting edema. LABORATORY DATA: Reviewed. INR 1.1. D-dimer 1.4. White cell count 6.3, hemoglobin 9.8 and platelets are 345. IMPRESSION: 1. Acute pulmonary embolism in a patient who has not been ambulatory since his back surgeries. The patient states that he was on Xarelto, which was stopped about a month ago, which he was taking for his heart. He has no deep venous thrombosis. His risk factor is likely related to inactivity. He would benefit from lifelong anticoagulation. 2. History of chronic obstructive pulmonary disease, clinically compensated. 3. History of cardiomyopathy. His last echo was on 01/25/2019. At that time, his ejection fraction has actually improved to 60-65%. RECOMMENDATIONS: 1. Continue with present heparin. 2. Consider starting Xarelto in the next 24 hours. 3. Due to his ongoing risk factor with his immobility, I would recommend that leave him on Xarelto lifelong as long as it is safe. 4. P.r.n. oxygen. 5. Discussed with RN. VERONICA GASTELUM MD DR: ROGERIO/tess JOB#: [id number] / [id number]
--- NOTE | 2019-03-01 14:00 | NUR ---
SS following for discharge planning. SS reviewed pt chart. Pt is from home and is currently on room air. PT/OT ordered. SS will await PT/OT evaluations and recommendations and will proceed accordingly.
--- NOTE | 2019-03-01 14:30 | HP ---
ADMIT DATE: 02/28/2019 CHIEF COMPLAINT: Chest pain. HISTORY OF PRESENT ILLNESS AND HOSPITAL COURSE: This patient is a 79-year-old -Welsh male who came to the hospital with a 3-day history of increasing chest pain. It was discovered during ER evaluation that the patient has stopped his Xarelto, apparently at the request of a nurse or medical provider stating that he would switch to aspirin. This documentation cannot be found. The patient had a positive D-dimer and had a V/Q scan during ER visit due to changes in creatinine, which did show high probability pulmonary embolus. Due to these findings, he was admitted for IV heparin and pulmonary consultation. PAST MEDICAL HISTORY: Significant for: 1. Coronary artery disease. 2. History of congestive heart failure and cardiomyopathy with AICD in place. 3. Chronic atrial fibrillation. 4. Hypertension. 5. Hyperlipidemia. 6. Chronic low back pain. 7. COPD. 8. Orthostatic hypotension. 9. BPH. 10. Lower extremity neuropathy. FAMILY HISTORY: Mother is at age 53 with colon cancer. Father is at age 72 with heart disease. He has a brother with heart disease and a sister with heart disease. PAST SURGICAL HISTORY: Significant for lumbar spinal fusion x 2 in 2004, hiatal hernia repair, cardiac catheterization on 12/30/2013, previous knee surgery, pacemaker and ICD placement, coronary artery bypass graft, cataract surgery, and abdominal aortic aneurysm repair in 2014. SOCIAL HISTORY: The patient is , lives with a cousin. He continues to smoke approximately 6-10 cigarettes per day. The patient is a light drinker and is retired from the [employer] as well as on disability for back pain. ALLERGIES: THE PATIENT EXHIBITS ALLERGIES TO MORPHINE and IODINE. MEDICATIONS: The patient's medications are listed in the chart. REVIEW OF SYSTEMS: The patient was doing well since recent hospital stay for dizziness. The patient has had ongoing difficulties with lack of taste and weight loss with decreased p.o. intake. He has also had orthostasis which is improved with medical treatment. Most recently, the patient had begun having chest pain, which was pleuritic in nature, worsening when he took a deep breath over the last 3 days. He denies any diaphoresis, nausea, vomiting or radiation. The patient had minimal shortness of breath. The patient denies any fever or productive cough. PHYSICAL EXAMINATION: GENERAL: This is a well-nourished -Welsh male in no apparent distress on my exam. He is alert and oriented x 3. HEENT: Benign. NECK: Supple. CARDIAC: Irregularly irregular. LUNGS: Clear anteriorly. ABDOMEN: Soft, nontender. EXTREMITIES: Showed 1+ pulses with approximately 1+ to trace edema bilaterally. ASSESSMENT: 1. Acute pulmonary embolus. 2. Please see past medical history. PLAN: Proceed with IV heparin. Consult Pulmonary Medicine for evaluation and switch to Xarelto and discharged to home. Pending PT and OT recommendations. ZULMA GOINS MD DR: PEPE/tess JOB#: [id number] / [id number]
[2019-03-01 15:00] VITALS: BP 139/67
--- NOTE | 2019-03-01 19:05 | NUR ---
UFH today were .50 and .53. no change to rate. UFH ordered for tomorrow a.m.
[2019-03-01 19:25] VITALS: BP 121/69
[2019-03-01] MEDS: ATORVASTATIN CALCIUM 10 MG TABLET. PO SCH (20:13)
[2019-03-01] MEDS: MONTELUKAST SODIUM 10 MG TABLET. PO SCH (20:14)
[2019-03-01] MEDS: TAMSULOSIN 0.4 MG CAP.ER.24H. PO SCH (20:14)
[2019-03-01] MEDS: traZODone 100 MG TABLET. PO SCH (20:16)
[2019-03-01 23:26] VITALS: BP 113/63
[2019-03-02 03:12] VITALS: BP 92/62
[2019-03-02 03:55] LABS: BASO # 0.1 x10^3/uL (0.0-0.2); BASO % 1 % (0-3); EOS # 0.1 x10^3/uL (0.0-0.7); EOS % 2 % (0-3); HEMATOCRIT 29.2 % (39.0-53.0); LYMPH # 2.5 x10^3/uL (1.0-4.8); LYMPH % 48 % (24-48); MEAN CORPUSCULAR HEMOGLOBIN 22 pg (25-35); MEAN CORPUSCULAR HGB CONC 31 g/dL (31-37); MEAN CORPUSCULAR VOLUME 72 fL (79-100); MONO # 0.4 x10^3/uL (0.0-1.1); MONO % 8 % (0-9); NEUT # 2.2 x10^3uL (1.8-7.7); NEUT % 42 % (31-73); PLATELET COUNT 304 x10^3/uL (140-400); RED BLOOD COUNT 4.08 x10^6/uL (4.30-5.70); WHITE BLOOD COUNT 5.4 x10^3/uL (4.0-11.0)
[2019-03-02 04:08] LABS: CALCIUM 8.3 mg/dL (8.5-10.1); CREATININE 1.1 mg/dL (0.7-1.3); GFR 78.5; POTASSIUM 3.9 mmol/L (3.5-5.1)
[2019-03-02] MEDS: MIDODRINE 2.5 MG TABLET PO SCH ×3 (06:01→17:36)
[2019-03-02] MEDS: oxyCODONE IR 5 MG TABLET PO PRN ×2 (06:02→13:36)
[2019-03-02 07:37] VITALS: BP 133/69
[2019-03-02] MEDS: PANTOPRAZOLE 40 MG TABLET.DR. PO SCH (07:44)
[2019-03-02] MEDS: IPRATRPIUM/ALBUTEROL 0.5/2.5MG 3 ML NEBU. NEB SCH ×4 (08:22→20:00)
[2019-03-02] MEDS: BUDESONIDE 0.5 MG/2 ML NEBU. NEB SCH ×2 (08:22→20:00)
[2019-03-02] MEDS: ASPIRIN CHEWABLE 81 MG TABLET. PO SCH (08:35)
[2019-03-02] MEDS: FLUDROCORTISONE 0.1 MG TABLET PO SCH (08:35)
[2019-03-02] MEDS: AMIODARONE HCL 200 MG TABLET. PO SCH (08:36)
[2019-03-02] MEDS: IRON POLYSACCHARIDE COMPLEX 150 MG CAPSULE PO SCH (08:36)
[2019-03-02] MEDS: DIGOXIN 125 MCG TABLET. PO SCH (08:36)
[2019-03-02] MEDS: LUBIPROSTONE 8 MCG CAPSULE PO SCH ×2 (08:41→17:37)
[2019-03-02] MEDS: ANTI-COAG MONITOR BY PHARMACY. MC PRN (09:29)
[2019-03-02 10:54] VITALS: BP 108/69
--- NOTE | 2019-03-02 12:55 | PDOC ---
PROGRESS NOTES Subjective Subjective Patient states he continues to have pain worse with eating. Objective Objective Vital Signs Date Time Temp Pulse Resp B/P (MAP) Pulse Ox O2 Delivery O2 Flow Rate FiO2 03/02/19 12:03 95 Room Air 03/02/19 10:54 97.8 79 17 108/69 (82) 97.8 Intake and Output 03/02/19 07:00 Intake Total 360 ml Balance 360 ml Intake Oral 360 ml Physical Exam Abdomen: Normal bowel sounds Heart: Other (Irreg) Extremities: No edema General: Alert Lungs: Clear to auscultation Assessment Assessment Problems Medical Problems: (1) Chest pain Status: Acute (2) PE (pulmonary embolism) Status: Acute Pulmonary Emboli Abd Pain Coronary artery disease. History of congestive heart failure and cardiomyopathy with AICD in place last echo showed improve EF 55% Chronic atrial fibrillation. Hypertension. Hyperlipidemia. Chronic low back pain. COPD. Orthostatic hypotension. BPH. Lower extremity neuropathy. Plan Plan of Care Check abd sono Consider GI eval Comment Review of Relevant I have reviewed the following items [email or web address] (where applicable) has been applied. Labs Laboratory Tests Test 02/28/19 19:17 03/01/19 06:22 03/01/19 12:50 03/02/19 03:35 White Blood Count 6.3 x10^3/uL (4.0-11.0) 5.4 x10^3/uL (4.0-11.0) Red Blood Count 4.50 x10^6/uL (4.30-5.70) 4.08 x10^6/uL (4.30-5.70) Hemoglobin 9.8 g/dL (13.0-17.5) 9.0 g/dL (13.0-17.5) Hematocrit 32.1 % (39.0-53.0) 29.2 % (39.0-53.0) Mean Corpuscular Volume 71 fL (79-100) 72 fL (79-100) Mean Corpuscular Hemoglobin 22 pg (25-35) 22 pg (25-35) Mean Corpuscular Hemoglobin Concent 30 g/dL (31-37) 31 g/dL (31-37) Red Cell Distribution Width 30.9 % (11.5-14.5) 30.0 % (11.5-14.5) Platelet Count 345 x10^3/uL (140-400) 304 x10^3/uL (140-400) Neutrophils (%) (Auto) 41 % (31-73) 42 % (31-73) Lymphocytes (%) (Auto) 50 % (24-48) 48 % (24-48) Monocytes (%) (Auto) 7 % (0-9) 8 % (0-9) Eosinophils (%) (Auto) 1 % (0-3) 2 % (0-3) Basophils (%) (Auto) 1 % (0-3) 1 % (0-3) Neutrophils # (Auto) 2.6 x10^3uL (1.8-7.7) 2.2 x10^3uL (1.8-7.7) Lymphocytes # (Auto) 3.2 x10^3/uL (1.0-4.8) 2.5 x10^3/uL (1.0-4.8) Monocytes # (Auto) 0.4 x10^3/uL (0.0-1.1) 0.4 x10^3/uL (0.0-1.1) Eosinophils # (Auto) 0.1 x10^3/uL (0.0-0.7) 0.1 x10^3/uL (0.0-0.7) Basophils # (Auto) 0.0 x10^3/uL (0.0-0.2) 0.1 x10^3/uL (0.0-0.2) Platelet Estimate Adequate (ADEQUATE) Hypochromasia Mod Poikilocytosis Slight Anisocytosis Marked Microcytosis Mod Target Cells Present Schistocytes Few RBC Morphology Bizarre Forms Few Prothrombin Time 13.5 SEC (11.7-14.0) Prothromb Time International Ratio 1.1 (0.8-1.1) Activated Partial Thromboplast Time 29 SEC (24-38) D-Dimer (Uma) 1.49 ug/mlFEU (0.00-0.50) Sodium Level 140 mmol/L (136-145) 141 mmol/L (136-145) Potassium Level 4.0 mmol/L (3.5-5.1) 3.9 mmol/L (3.5-5.1) Chloride Level 104 mmol/L (98-107) 105 mmol/L (98-107) Carbon Dioxide Level 26 mmol/L (21-32) 28 mmol/L (21-32) Anion Gap 10 (6-14) 8 (6-14) Blood Urea Nitrogen 12 mg/dL (8-26) 11 mg/dL (8-26) Creatinine 1.0 mg/dL (0.7-1.3) 1.1 mg/dL (0.7-1.3) Estimated GFR (Cockcroft-Gault) 87.7 78.5 BUN/Creatinine Ratio 12 (6-20) Glucose Level 112 mg/dL (70-99) 110 mg/dL (70-99) Calcium Level 8.9 mg/dL (8.5-10.1) 8.3 mg/dL (8.5-10.1) Magnesium Level 1.8 mg/dL (1.8-2.4) Total Bilirubin 0.6 mg/dL (0.2-1.0) Aspartate Amino Transf (AST/SGOT) 24 U/L (15-37) Alanine Aminotransferase (ALT/SGPT) 14 U/L (16-63) Alkaline Phosphatase 82 U/L (46-116) Creatine Kinase 59 U/L (39-308) Creatine Kinase MB (Mass) 0.5 ng/mL (0.0-3.6) Creatine Kinase MB Relative Index % (0-4) Troponin I Quantitative 0.030 ng/mL (0.000-0.055) NO-Ybw-C-Type Natriuretic Peptide 589 pg/mL (0-449) Total Protein 6.8 g/dL (6.4-8.2) Albumin 3.4 g/dL (3.4-5.0) Albumin/Globulin Ratio 1.0 (1.0-1.7) Lipase 140 U/L (73-393) Digoxin Level 0.6 ng/mL (0.9-2.0) Digoxin Last Dose Date Unknown Digoxin Last Dose Time Unknown Heparin Anti-Xa Act, Unfractionated 0.50 IU/mL (0.30-0.70) 0.53 IU/mL (0.30-0.70) 0.35 IU/mL (0.30-0.70) Laboratory Tests Test 03/02/19 03:35 White Blood Count 5.4 x10^3/uL (4.0-11.0) Red Blood Count 4.08 x10^6/uL (4.30-5.70) Hemoglobin 9.0 g/dL (13.0-17.5) Hematocrit 29.2 % (39.0-53.0) Mean Corpuscular Volume 72 fL (79-100) Mean Corpuscular Hemoglobin 22 pg (25-35) Mean Corpuscular Hemoglobin Concent 31 g/dL (31-37) Red Cell Distribution Width 30.0 % (11.5-14.5) Platelet Count 304 x10^3/uL (140-400) Neutrophils (%) (Auto) 42 % (31-73) Lymphocytes (%) (Auto) 48 % (24-48) Monocytes (%) (Auto) 8 % (0-9) Eosinophils (%) (Auto) 2 % (0-3) Basophils (%) (Auto) 1 % (0-3) Neutrophils # (Auto) 2.2 x10^3uL (1.8-7.7) Lymphocytes # (Auto) 2.5 x10^3/uL (1.0-4.8) Monocytes # (Auto) 0.4 x10^3/uL (0.0-1.1) Eosinophils # (Auto) 0.1 x10^3/uL (0.0-0.7) Basophils # (Auto) 0.1 x10^3/uL (0.0-0.2) Heparin Anti-Xa Act, Unfractionated 0.35 IU/mL (0.30-0.70) Sodium Level 141 mmol/L (136-145) Potassium Level 3.9 mmol/L (3.5-5.1) Chloride Level 105 mmol/L (98-107) Carbon Dioxide Level 28 mmol/L (21-32) Anion Gap 8 (6-14) Blood Urea Nitrogen 11 mg/dL (8-26) Creatinine 1.1 mg/dL (0.7-1.3) Estimated GFR (Cockcroft-Gault) 78.5 Glucose Level 110 mg/dL (70-99) Calcium Level 8.3 mg/dL (8.5-10.1) Medications Current Medications Fentanyl Citrate (Fentanyl 2ml Vial) 25 mcg 1X ONCE IV Last administered on 03/01/19at 00:33; Start 02/28/19 at 20:30; Stop 02/28/19 at 20:31; Status DC Aspirin (Children'S Aspirin) 324 mg 1X ONCE PO Last administered on 03/01/19at 00:33; Start 02/28/19 at 23:00; Stop 02/28/19 at 23:01; Status DC Heparin Sodium (Porcine) (Heparin Sodium) 5,450 unit 1X ONCE IV Last administered on 03/01/19at 00:35; Start 03/01/19 at 00:30; Stop 03/01/19 at 00:31; Status DC Heparin Sodium/ Dextrose 500 ml @ 0 mls/hr CONT PRN IV SEE I/O RECORD Last administered on 03/01/19at 21:56; Start 03/01/19 at 00:15 Heparin Sodium (Porcine) (Heparin Sodium) 2,050 unit PRN Q6HRS PRN IV FOR UFH LEVEL LESS THAN 0.2; Start 03/01/19 at 00:15 Heparin Sodium (Porcine) (Heparin Sodium) 1,000 unit PRN Q6HRS PRN IV FOR UFH LEVEL 0.2 - 0.29; Start 03/01/19 at 00:15 Info (Anti-Coagulation Monitoring By Pharmacy) 1 each PRN DAILY PRN MC SEE COMMENTS Last administered on 03/02/19at 09:29; Start 03/01/19 at 00:15 Fentanyl Citrate (Fentanyl 2ml Vial) 25 mcg PRN Q2HR PRN IV severe pain Last administered on 03/01/19at 08:44; Start 03/01/19 at 01:45; Stop 03/02/19 at 01:44; Status DC Acetaminophen (Tylenol) 650 mg PRN Q4HRS PRN PO FEVER; Start 03/01/19 at 01:45; Stop 03/02/19 at 01:44; Status DC Albuterol Sulfate (Ventolin Neb Soln) 2.5 mg PRN Q6HRS PRN INH SHORTNESS OF BREATH; Start 03/01/19 at 06:30 Amiodarone HCl (Cordarone) 200 mg DAILY PO Last administered on 03/02/19at 08:36; Start 03/01/19 at 09:00 Aspirin (Children'S Aspirin) 81 mg DAILY PO Last administered on 03/02/19at 08:35; Start 03/01/19 at 09:00 Digoxin (Lanoxin) 125 mcg DAILY PO Last administered on 03/02/19 08:36; Start 03/01/19 at 09:00 Fludrocortisone Acetate (Florinef) 0.1 mg DAILY PO Last administered on 03/02/19 08:35; Start 03/01/19 at 09:00 Gabapentin (Neurontin) 300 mg PRN TID PRN PO NEUROPATHIC PAIN Last administered on 03/01/19 08:46; Start 03/01/19 at 06:30 Albuterol/ Ipratropium (Duoneb) 3 ml RTQID NEB Last administered on 03/02/19 12:03; Start 03/01/19 at 08:00 Lubiprostone (Amitiza) 24 mcg BIDWMEALS PO Last administered on 03/02/19 08:41; Start 03/01/19 at 08:00 Trazodone HCl (Desyrel) 100 mg QHS PO Last administered on 03/01/19 20:16; Start 03/01/19 at 21:00 Budesonide (Pulmicort) 0.5 mg RTBID NEB Last administered on 03/02/19 08:22; Start 03/01/19 at 08:00 Polysaccharide Iron Complex (Niferex 150) 150 mg DAILY PO Last administered on 03/02/19 08:36; Start 03/01/19 at 09:00 Midodrine (Proamatine) 2.5 mg [id number] PO Last administered on 03/02/19 06:01; Start 03/01/19 at 07:00 Montelukast Sodium (Singulair) 10 mg QHS PO Last administered on 03/01/19 20:14; Start 03/01/19 at 21:00 Oxycodone HCl (Roxicodone) 20 mg PRN TID PRN PO SEVERE PAIN Last administered on 03/02/19 06:02; Start 03/01/19 at 06:45 Atorvastatin Calcium (Lipitor) 10 mg QHS PO Last administered on 03/01/19 20:13; Start 03/01/19 at 21:00 Pantoprazole Sodium (Protonix) 40 mg DAILYAC PO Last administered on 03/02/19 07:44; Start 03/01/19 at 07:30 Albuterol/ Ipratropium (Duoneb) 3 ml RTQID NEB ; Start 03/01/19 at 08:00; Status UNV Tamsulosin HCl (Flomax) 0.4 mg QHS PO Last administered on 03/01/19at 20:14; Start 03/01/19 at 21:00 Active Scripts Active Prednisone (Prednisone) 10 Mg Tablet 10 Mg PO DAILY 9 Days Aspirin 81 Mg Tab.chew 1 Tab PO DAILY Montelukast Sodium Tablet (Montelukast Sodium) 10 Mg Tablet 10 Mg PO QHS 30 Days Culturelle (Lactobacillus Rhamnosus Gg) 1 Each Cap.sprink 1 Cap PO BID 10 Days Advair 250-50 Diskus (Fluticasone/Salmeterol) 1 Each Disk.w.dev 1 Puff IH BID Fludrocortisone Acetate 0.1 Mg Tablet 0.1 Mg PO DAILY 30 Days Amitiza (Lubiprostone) 8 Mcg Capsule 24 Mcg PO BIDWMEALS 30 Days Amiodarone Hcl 200 Mg Tablet 200 Mg PO DAILY 30 Days Poly-Iron (Iron Polysaccharides Complex) 150 Mg Capsule 150 Mg PO DAILY 30 Days Midodrine Hcl 2.5 Mg Tablet 2.5 Mg PO [id number] 30 Days Betapace (Sotalol Hcl) 80 Mg Tablet 40 Mg PO BID 30 Days Duoneb 0.5-3(2.5) Mg/3 Ml (Albuterol/Ipratropium) 3 Ml Ampul.neb 3 Ml NEB RTQID 30 Days Vitamin B-1 (Thiamine Mononitrate) 100 Mg Tablet 100 Mg PO DAILY 30 Days [Pantoprazole] 40 MG Tablet.dr 40 Mg PO DAILYAC 30 Days Proair Hfa Inhaler (Albuterol Sulfate) 8.5 Gm Hfa.aer.ad 1 Puff INH PRN Q6HRS PRN Reported Trazodone Hcl 100 Mg Tablet 100 Mg PO QHS Oxycodone Hcl 20 Mg Tablet 20 Mg PO TID PRN PRN Simvastatin 20 Mg Tablet 1 Tab PO QHS Gabapentin (Gabapentin) 300 Mg Capsule 300 Mg PO PRN TID PRN can take 1 or 2 capsules Digoxin 125 Mcg Tablet 125 Mcg PO DAILY Vitals/I & O Vital Sign - Last 24 Hours 03/01/19 03/01/19 03/01/19 03/01/19 13:45 15:00 16:32 17:29 Temp 98.0 98.0 Pulse 71 70 75 Resp 18 B/P (MAP) 127/67 139/67 (91) 122/74 Pulse Ox 96 95 O2 Delivery Room Air Room Air 03/01/19 03/01/19 03/01/19 03/01/19 19:12 19:25 20:13 20:30 Temp 98.5 98.5 Pulse 74 Resp 18 20 B/P (MAP) 121/69 (86) Pulse Ox 97 95 O2 Delivery Room Air Room Air Room Air Room Air 03/01/19 03/01/19 03/02/19 03/02/19 21:13 23:26 03:12 06:01 Temp 99.0 97.6 99.0 97.6 Pulse 75 74 74 Resp 20 18 18 B/P (MAP) 113/63 (80) 92/62 (72) 92/62 Pulse Ox 94 96 O2 Delivery Room Air Room Air Room Air 03/02/19 03/02/19 03/02/19 03/02/19 06:02 07:37 08:00 08:22 Temp 98.2 98.2 Pulse 71 Resp 20 20 B/P (MAP) 133/69 (90) Pulse Ox 96 95 O2 Delivery Room Air Room Air Room Air Room Air 03/02/19 03/02/19 03/02/19 03/02/19 08:36 08:36 10:54 12:03 Temp 97.8 97.8 Pulse 85 85 79 Resp 17 B/P (MAP) 133/69 133/69 108/69 (82) Pulse Ox 94 95 O2 Delivery Room Air Room Air Intake and Output 03/01/19 03/01/19 03/02/19 15:00 23:00 07:00 Intake Total 0 ml 360 ml Balance 0 ml 360 ml ZULMA GOINS MD March 02, 2019 12:55
--- NOTE | 2019-03-02 14:24 | PDOC2 ---
GI CONSULT Reason For Consult: Abd pain HPI: HPI: 79 y/o male admitted w/ chest pain and found to have PE - I believe h/o A Fib and DVT, off Xarelto x 1 month, chart indicates "bedbound" from previous back surgeries. Now on Heparin. We saw him last year for abnormal esophagus on chest CT (dilated w/ air-fluid level) - wondered about h/o achalasia, reflux, and hiatal hernia repair. At that time EGD was recommended. GI asked to see this afternoon for abd pain. He is not a good historian. He tells me epigastric pain "all the time" for 2-3 days, no precipitating events. Then he says the pain comes and goes - unclear aggravating or alleviating features but might be worse w/ breathing, coughing, and/or eating. The pain is "sharp like an ice pick" and might radiate to LUQ. He can't tell me what medications he takes - "I gave you a list." He denies reflux, dysphagia, odynophagia, n/v, diarrhea, and bleeding. He says he lost 100 pounds when he had a surgery on his legs with Dr. Malik and says "bowels move when they want to." Summary list includes ASA, pantoprazole, Amitiza, oxycodone, iron, and prednisone. Past notes indicate h/o adenomatous polyp in 2009 and past dilation of esophageal stricture. Colonoscopy in 03/2015 (for rectal bleeding) showed hyperplastic rectal polyp, diverticulosis, and hemorrhoids. No GB, liver, or pancreas history. 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, AICD/repair, back surgeries, cardiac cath, CABG, hiatal hernia repair FH: Family History: Cancer (chart indicates mother had colon cancer) Social History: Smoke: No ALCOHOL: none Drugs: None ROS: GEN: Denies fevers, chills, sweats HEENT: Denies blurred vision, sore throat CV: +chest pain RESP: +cough GI: Per HPI : Denies hematuria, dysuria ENDO: ?weight loss NEURO: Denies confusion, dizziness MSK: Denies weakness, joint pain/swelling SKIN: Denies jaundice, pruritus Vitals: Vitals: Vital Signs Date Time Temp Pulse Resp B/P (MAP) Pulse Ox O2 Delivery O2 Flow Rate FiO2 03/02/19 13:36 Room Air 03/02/19 13:33 98 116/76 03/02/19 12:03 95 03/02/19 10:54 97.8 17 97.8 Labs: Labs: Laboratory Tests Test 03/02/19 03:35 White Blood Count 5.4 x10^3/uL (4.0-11.0) Red Blood Count 4.08 x10^6/uL (4.30-5.70) Hemoglobin 9.0 g/dL (13.0-17.5) Hematocrit 29.2 % (39.0-53.0) Mean Corpuscular Volume 72 fL (79-100) Mean Corpuscular Hemoglobin 22 pg (25-35) Mean Corpuscular Hemoglobin Concent 31 g/dL (31-37) Red Cell Distribution Width 30.0 % (11.5-14.5) Platelet Count 304 x10^3/uL (140-400) Neutrophils (%) (Auto) 42 % (31-73) Lymphocytes (%) (Auto) 48 % (24-48) Monocytes (%) (Auto) 8 % (0-9) Eosinophils (%) (Auto) 2 % (0-3) Basophils (%) (Auto) 1 % (0-3) Neutrophils # (Auto) 2.2 x10^3uL (1.8-7.7) Lymphocytes # (Auto) 2.5 x10^3/uL (1.0-4.8) Monocytes # (Auto) 0.4 x10^3/uL (0.0-1.1) Eosinophils # (Auto) 0.1 x10^3/uL (0.0-0.7) Basophils # (Auto) 0.1 x10^3/uL (0.0-0.2) Heparin Anti-Xa Act, Unfractionated 0.35 IU/mL (0.30-0.70) Sodium Level 141 mmol/L (136-145) Potassium Level 3.9 mmol/L (3.5-5.1) Chloride Level 105 mmol/L (98-107) Carbon Dioxide Level 28 mmol/L (21-32) Anion Gap 8 (6-14) Blood Urea Nitrogen 11 mg/dL (8-26) Creatinine 1.1 mg/dL (0.7-1.3) Estimated GFR (Cockcroft-Gault) 78.5 Glucose Level 110 mg/dL (70-99) Calcium Level 8.3 mg/dL (8.5-10.1) Allergies: Coded Allergies: Iodinated Contrast- Oral and IV Dye (Verified Allergy, Severe, anaphalaxis, short of air, 06/06/15) adhesive (Verified Allergy, Severe, PAINFUL SKIN IRRITATION , 06/06/15) latex (Verified Allergy, Intermediate, Hives, 06/06/15) Medications: Current Medications Medications (Trade) Dose Ordered Sig/Alma Rosa Route PRN Reason Start Time Stop Time Status Last Admin Dose Admin Trazodone HCl (Desyrel) 100 mg QHS PO 03/01/19 21:00 03/01/19 20:16 Montelukast Sodium (Singulair) 10 mg QHS PO 03/01/19 21:00 03/01/19 20:14 Atorvastatin Calcium (Lipitor) 10 mg QHS PO 03/01/19 21:00 03/01/19 20:13 Tamsulosin HCl (Flomax) 0.4 mg QHS PO 03/01/19 21:00 03/01/19 20:14 Imaging: Imaging: CXR IMPRESSION: No acute abnormality is seen. VQ Scan IMPRESSION: 1. High probability for pulmonary embolus. 2. Diffuse air trapping is noted bilaterally. LE US IMPRESSION: Normal bilateral lower extremity duplex ultrasound exam. No evidence of deep venous thrombus involving the lower extremities. PE: GEN: NAD - ate ~25% of lunch HEENT: Atraumatic, PERRL LUNGS: room air, clear anteriorly HEART: RRR ABD: NABS, S/ND/NT EXTREMITY: No edema SKIN: No rashes, no jaundice NEURO/PSYCH: A & O 3 - poor historian A/P: A/P: PE - recently stopped Xarelto (?h/o DVT), on Heparin here Upper abd pain Microcytic anemia - ?takes iron at home ?h/o achalasia, reflux, hiatal hernia repair - on PPI here, unclear when last had EGD ?constipation CRC screen, h/o adenomatous polyp - UTD (2014) Diverticulosis H/o CAD and A Fib on ASA -- Continue PPI and Amitiza. Note plans for abd US. Check iron profile. Will review w/ Dr. Banks re: EGD - probably not ideal timing w/ new SALUD. HONEY AUGUSTE March 02, 2019 14:24
--- NOTE | 2019-03-02 15:08 | PDOC ---
PULMONARY PROGRESS NOTES Subjective no soa does not feel well Vitals Vital Signs Date Time Temp Pulse Resp B/P (MAP) Pulse Ox O2 Delivery O2 Flow Rate FiO2 03/02/19 13:36 Room Air 03/02/19 13:33 98 116/76 03/02/19 12:03 95 03/02/19 10:54 97.8 17 97.8 General: Alert, No acute distress HEENT: Other Lungs: Clear, Crackles Cardiovascular: S1, S2 Abdomen: Soft, Non-tender Extremities: No Edema Labs Laboratory Tests Test 02/28/19 19:17 03/01/19 06:22 03/01/19 12:50 03/02/19 03:35 White Blood Count 6.3 x10^3/uL (4.0-11.0) 5.4 x10^3/uL (4.0-11.0) Red Blood Count 4.50 x10^6/uL (4.30-5.70) 4.08 x10^6/uL (4.30-5.70) Hemoglobin 9.8 g/dL (13.0-17.5) 9.0 g/dL (13.0-17.5) Hematocrit 32.1 % (39.0-53.0) 29.2 % (39.0-53.0) Mean Corpuscular Volume 71 fL (79-100) 72 fL (79-100) Mean Corpuscular Hemoglobin 22 pg (25-35) 22 pg (25-35) Mean Corpuscular Hemoglobin Concent 30 g/dL (31-37) 31 g/dL (31-37) Red Cell Distribution Width 30.9 % (11.5-14.5) 30.0 % (11.5-14.5) Platelet Count 345 x10^3/uL (140-400) 304 x10^3/uL (140-400) Neutrophils (%) (Auto) 41 % (31-73) 42 % (31-73) Lymphocytes (%) (Auto) 50 % (24-48) 48 % (24-48) Monocytes (%) (Auto) 7 % (0-9) 8 % (0-9) Eosinophils (%) (Auto) 1 % (0-3) 2 % (0-3) Basophils (%) (Auto) 1 % (0-3) 1 % (0-3) Neutrophils # (Auto) 2.6 x10^3uL (1.8-7.7) 2.2 x10^3uL (1.8-7.7) Lymphocytes # (Auto) 3.2 x10^3/uL (1.0-4.8) 2.5 x10^3/uL (1.0-4.8) Monocytes # (Auto) 0.4 x10^3/uL (0.0-1.1) 0.4 x10^3/uL (0.0-1.1) Eosinophils # (Auto) 0.1 x10^3/uL (0.0-0.7) 0.1 x10^3/uL (0.0-0.7) Basophils # (Auto) 0.0 x10^3/uL (0.0-0.2) 0.1 x10^3/uL (0.0-0.2) Platelet Estimate Adequate (ADEQUATE) Hypochromasia Mod Poikilocytosis Slight Anisocytosis Marked Microcytosis Mod Target Cells Present Schistocytes Few RBC Morphology Bizarre Forms Few Prothrombin Time 13.5 SEC (11.7-14.0) Prothromb Time International Ratio 1.1 (0.8-1.1) Activated Partial Thromboplast Time 29 SEC (24-38) D-Dimer (Uma) 1.49 ug/mlFEU (0.00-0.50) Sodium Level 140 mmol/L (136-145) 141 mmol/L (136-145) Potassium Level 4.0 mmol/L (3.5-5.1) 3.9 mmol/L (3.5-5.1) Chloride Level 104 mmol/L (98-107) 105 mmol/L (98-107) Carbon Dioxide Level 26 mmol/L (21-32) 28 mmol/L (21-32) Anion Gap 10 (6-14) 8 (6-14) Blood Urea Nitrogen 12 mg/dL (8-26) 11 mg/dL (8-26) Creatinine 1.0 mg/dL (0.7-1.3) 1.1 mg/dL (0.7-1.3) Estimated GFR (Cockcroft-Gault) 87.7 78.5 BUN/Creatinine Ratio 12 (6-20) Glucose Level 112 mg/dL (70-99) 110 mg/dL (70-99) Calcium Level 8.9 mg/dL (8.5-10.1) 8.3 mg/dL (8.5-10.1) Magnesium Level 1.8 mg/dL (1.8-2.4) Total Bilirubin 0.6 mg/dL (0.2-1.0) Aspartate Amino Transf (AST/SGOT) 24 U/L (15-37) Alanine Aminotransferase (ALT/SGPT) 14 U/L (16-63) Alkaline Phosphatase 82 U/L (46-116) Creatine Kinase 59 U/L (39-308) Creatine Kinase MB (Mass) 0.5 ng/mL (0.0-3.6) Creatine Kinase MB Relative Index % (0-4) Troponin I Quantitative 0.030 ng/mL (0.000-0.055) ZW-Paq-U-Type Natriuretic Peptide 589 pg/mL (0-449) Total Protein 6.8 g/dL (6.4-8.2) Albumin 3.4 g/dL (3.4-5.0) Albumin/Globulin Ratio 1.0 (1.0-1.7) Lipase 140 U/L (73-393) Digoxin Level 0.6 ng/mL (0.9-2.0) Digoxin Last Dose Date Unknown Digoxin Last Dose Time Unknown Heparin Anti-Xa Act, Unfractionated 0.50 IU/mL (0.30-0.70) 0.53 IU/mL (0.30-0.70) 0.35 IU/mL (0.30-0.70) Laboratory Tests Test 03/02/19 03:35 White Blood Count 5.4 x10^3/uL (4.0-11.0) Red Blood Count 4.08 x10^6/uL (4.30-5.70) Hemoglobin 9.0 g/dL (13.0-17.5) Hematocrit 29.2 % (39.0-53.0) Mean Corpuscular Volume 72 fL (79-100) Mean Corpuscular Hemoglobin 22 pg (25-35) Mean Corpuscular Hemoglobin Concent 31 g/dL (31-37) Red Cell Distribution Width 30.0 % (11.5-14.5) Platelet Count 304 x10^3/uL (140-400) Neutrophils (%) (Auto) 42 % (31-73) Lymphocytes (%) (Auto) 48 % (24-48) Monocytes (%) (Auto) 8 % (0-9) Eosinophils (%) (Auto) 2 % (0-3) Basophils (%) (Auto) 1 % (0-3) Neutrophils # (Auto) 2.2 x10^3uL (1.8-7.7) Lymphocytes # (Auto) 2.5 x10^3/uL (1.0-4.8) Monocytes # (Auto) 0.4 x10^3/uL (0.0-1.1) Eosinophils # (Auto) 0.1 x10^3/uL (0.0-0.7) Basophils # (Auto) 0.1 x10^3/uL (0.0-0.2) Heparin Anti-Xa Act, Unfractionated 0.35 IU/mL (0.30-0.70) Sodium Level 141 mmol/L (136-145) Potassium Level 3.9 mmol/L (3.5-5.1) Chloride Level 105 mmol/L (98-107) Carbon Dioxide Level 28 mmol/L (21-32) Anion Gap 8 (6-14) Blood Urea Nitrogen 11 mg/dL (8-26) Creatinine 1.1 mg/dL (0.7-1.3) Estimated GFR (Cockcroft-Gault) 78.5 Glucose Level 110 mg/dL (70-99) Calcium Level 8.3 mg/dL (8.5-10.1) Medications Active Scripts Medications Dose Route/Sig Max Daily Dose Days Date Category Dose Instructions Prednisone (Prednisone) 10 Mg Tablet 10 Mg PO DAILY 9 01/30/19 Rx Aspirin 81 Mg Tab.chew 1 Tab PO DAILY 01/30/19 Rx Montelukast Sodium Tablet (Montelukast Sodium) 10 Mg Tablet 10 Mg PO QHS 30 01/30/19 Rx Culturelle (Lactobacillus Rhamnosus Gg) 1 Each Cap.sprink 1 Cap PO BID 10 01/30/19 Rx Advair 250-50 Diskus (Fluticasone/Salmeterol) 1 Each Disk.w.dev 1 Puff IH BID 01/30/19 Rx Fludrocortisone Acetate 0.1 Mg Tablet 0.1 Mg PO DAILY 30 01/30/19 Rx Amitiza (Lubiprostone) 8 Mcg Capsule 24 Mcg PO BIDWMEALS 30 01/30/19 Rx Amiodarone Hcl 200 Mg Tablet 200 Mg PO DAILY 30 01/30/19 Rx Poly-Iron (Iron Polysaccharides Complex) 150 Mg Capsule 150 Mg PO DAILY 30 01/30/19 Rx Midodrine Hcl 2.5 Mg Tablet 2.5 Mg PO [id number] 30 01/30/19 Rx Trazodone Hcl 100 Mg Tablet 100 Mg PO QHS 12/10/18 Reported Oxycodone Hcl 20 Mg Tablet 20 Mg PO TID PRN PRN 12/10/18 Reported Betapace (Sotalol Hcl) 80 Mg Tablet 40 Mg PO BID 30 11/05/18 Rx Duoneb 0.5-3(2.5) Mg/3 Ml (Albuterol/Ipratropium) 3 Ml Ampul.neb 3 Ml NEB RTQID 30 11/05/18 Rx Vitamin B-1 (Thiamine Mononitrate) 100 Mg Tablet 100 Mg PO DAILY 30 08/23/18 Rx [Pantoprazole] 40 MG Tablet.dr 40 Mg PO DAILYAC 30 08/23/18 Rx Proair Hfa Inhaler (Albuterol Sulfate) 8.5 Gm Hfa.aer.ad 1 Puff INH PRN Q6HRS PRN 07/01/18 Rx Simvastatin 20 Mg Tablet 1 Tab PO QHS 10/18/14 Reported Gabapentin (Gabapentin) 300 Mg Capsule 300 Mg PO PRN TID PRN 01/29/14 Reported can take 1 or 2 capsules Digoxin 125 Mcg Tablet 125 Mcg PO DAILY 01/29/14 Reported Impression . 1. Acute pulmonary embolism in a patient who has not been ambulatory since his back surgeries. The patient states that he was on Xarelto, which was stopped about a month ago, which he was taking for his heart. He has no deep venous thrombosis. His risk factor is likely related to inactivity. He would benefit from lifelong anticoagulation. 2. History of chronic obstructive pulmonary disease, clinically compensated. 3. History of cardiomyopathy. His last echo was on 01/25/2019. At that time, his ejection fraction has actually improved to 60-65%. Plan . 1. dc heparin. 2. start Xarelto 3. Due to his ongoing risk factor with his immobility, I would recommend that leave him on Xarelto lifelong as long as it is safe. 4. P.r.n. oxygen. 5. Discussed with RN./ VERONICA SEALS MD March 02, 2019 15:08
[2019-03-02 15:30] VITALS: BP 121/68
[2019-03-02] MEDS: RIVAROXABAN 15 MG TABLET. PO SCH (18:36)
[2019-03-02 19:45] VITALS: BP 128/72
[2019-03-02] MEDS: TAMSULOSIN 0.4 MG CAP.ER.24H. PO SCH (21:34)
[2019-03-02] MEDS: FAMOTIDINE 20 MG TABLET. PO SCH (21:34)
[2019-03-02] MEDS: traZODone 100 MG TABLET. PO SCH (21:35)
[2019-03-02] MEDS: MONTELUKAST SODIUM 10 MG TABLET. PO SCH (21:35)
[2019-03-02] MEDS: ATORVASTATIN CALCIUM 10 MG TABLET. PO SCH (21:35)
[2019-03-02 23:49] VITALS: BP 115/67
[2019-03-03 03:35] VITALS: BP 110/59
[2019-03-03 05:25] LABS: HEMOGLOBIN 9.2 g/dL (13.0-17.5); RED BLOOD COUNT 4.17 x10^6/uL (4.30-5.70); RED CELL DISTRIBUTION WIDTH 30.1 % (11.5-14.5); WHITE BLOOD COUNT 4.9 x10^3/uL (4.0-11.0)
[2019-03-03] MEDS: BUDESONIDE 0.5 MG/2 ML NEBU. NEB SCH ×2 (06:15→21:11)
[2019-03-03] MEDS: IPRATRPIUM/ALBUTEROL 0.5/2.5MG 3 ML NEBU. NEB SCH ×4 (06:15→21:11)
[2019-03-03 07:00] VITALS: BP 127/74
[2019-03-03] MEDS: PANTOPRAZOLE 40 MG TABLET.DR. PO SCH ×2 (07:23→17:46)
[2019-03-03] MEDS: MIDODRINE 2.5 MG TABLET PO SCH ×3 (07:24→17:46)
[2019-03-03] MEDS: oxyCODONE IR 5 MG TABLET PO PRN ×2 (07:28→17:50)
--- NOTE | 2019-03-03 07:56 | RAD ---
Abdominal ultrasound, 03/02/2019: HISTORY: Abdominal pain and nausea The gallbladder is within normal limits in size. There is no sonographic evidence of cholelithiasis. The gallbladder berry are not thickened. The common hepatic duct at the maggie hepatis level is mildly prominent measuring 7 mm. No intrahepatic bile duct dilatation is seen. There is no evidence of a hepatic mass. The visualized portions of the pancreatic body are unremarkable. Other portions of the pancreas were obscured by overlying bowel. The upper abdominal aorta and inferior vena cava are unremarkable. These vessels were obscured inferiorly by overlying bowel. The spleen is of normal size. There are 2 simple cysts in the right kidney, the largest of which measures 3.2 cm. There is a single 1.5 cm cyst in the left kidney. The kidneys show no evidence of obstruction. No free fluid is evident in the abdomen. IMPRESSION: 1. Small bilateral renal cysts. 2. No gallbladder abnormality is detected. 3. The common hepatic duct is slightly prominent without evidence of intrahepatic biliary duct dilatation. Correlation with laboratory dated is suggested. Electronically signed by: Reynaldo Drake MD (03/03/2019 7:53 AM) [facility]
[2019-03-03] MEDS: LUBIPROSTONE 8 MCG CAPSULE PO SCH ×2 (08:39→17:46)
[2019-03-03] MEDS: DIGOXIN 125 MCG TABLET. PO SCH (08:39)
[2019-03-03] MEDS: FAMOTIDINE 20 MG TABLET. PO SCH (08:39)
[2019-03-03] MEDS: FLUDROCORTISONE 0.1 MG TABLET PO SCH (08:39)
[2019-03-03] MEDS: RIVAROXABAN 15 MG TABLET. PO SCH ×2 (08:39→17:44)
[2019-03-03] MEDS: AMIODARONE HCL 200 MG TABLET. PO SCH (08:40)
[2019-03-03] MEDS: IRON POLYSACCHARIDE COMPLEX 150 MG CAPSULE PO SCH (08:40)
[2019-03-03] MEDS: ASPIRIN CHEWABLE 81 MG TABLET. PO SCH (08:40)
--- NOTE | 2019-03-03 10:23 | PDOC ---
Subjective: Subjective: "I feel so bad I might pass out." "Stomach hurts." Denies dysphagia. Objective: Objective: Reviewed w/ RN - didn't want breakfast. Drank milk but says his stomach hurt, asking for pain medication. Forgetful. No dysphagia. Vital Signs: Vital Signs Date Time Temp Pulse Resp B/P (MAP) Pulse Ox O2 Delivery O2 Flow Rate FiO2 03/03/19 08:40 86 127/74 03/03/19 08:00 Room Air 03/03/19 07:00 98.4 18 97 98.4 Labs: Laboratory Tests Test 03/03/19 04:10 White Blood Count 4.9 x10^3/uL Red Blood Count 4.17 x10^6/uL Hemoglobin 9.2 g/dL Hematocrit 30.0 % Mean Corpuscular Volume 72 fL Mean Corpuscular Hemoglobin 22 pg Mean Corpuscular Hemoglobin Concent 31 g/dL Red Cell Distribution Width 30.1 % Platelet Count 311 x10^3/uL Imaging: Abd US The gallbladder is within normal limits in size. There is no sonographic evidence of cholelithiasis. The gallbladder berry are not thickened. The common hepatic duct at the maggie hepatis level is mildly prominent measuring 7 mm. No intrahepatic bile duct dilatation is seen. There is no evidence of a hepatic mass. The visualized portions of the pancreatic body are unremarkable. Other portions of the pancreas were obscured by overlying bowel. The upper abdominal aorta and inferior vena cava are unremarkable. These vessels were obscured inferiorly by overlying bowel. The spleen is of normal size. There are 2 simple cysts in the right kidney, the largest of which measures 3.2 cm. There is a single 1.5 cm cyst in the left kidney. The kidneys show no evidence of obstruction. No free fluid is evident in the abdomen. IMPRESSION: 1. Small bilateral renal cysts. 2. No gallbladder abnormality is detected. 3. The common hepatic duct is slightly prominent without evidence of intrahepatic biliary duct dilatation. Correlation with laboratory dated is suggested. PE: GEN: was sleeping, seems uncomfortable when awakened LUNGS: room air HEART: RRR ABD: soft, epigastric tenderness, some discomfort BUQ NEURO/PSYCH: awake and alert, possibly confused A/P: PE - now on Xarelto Epigastric pain, anorexia RICHARD - unclear when last EGD, had colonoscopy in 2014 ?h/o achalasia/myotomy -- Pain is more bothersome today - will review w/ Dr. Banks - ?additional imaging Mildly prominent common hepatic duct with normal LFTs. Continue PPI and Amitiza. Add iron. Probably doesn't need H2 mason. HONEY AUGUSTE March 03, 2019 10:23
[2019-03-03] MEDS: ANTI-COAG MONITOR BY PHARMACY. MC PRN ×2 (10:47→10:49)
--- NOTE | 2019-03-03 10:58 | PDOC ---
PULMONARY PROGRESS NOTES Subjective no soa does not feel well Vitals Vital Signs Date Time Temp Pulse Resp B/P (MAP) Pulse Ox O2 Delivery O2 Flow Rate FiO2 03/03/19 08:40 86 127/74 03/03/19 08:00 Room Air 03/03/19 07:00 98.4 18 97 98.4 General: Alert, No acute distress HEENT: Other Lungs: Clear Cardiovascular: S1, S2 Abdomen: Soft, Non-tender Extremities: No Edema Labs Laboratory Tests Test 03/01/19 12:50 03/02/19 03:35 03/03/19 04:10 Heparin Anti-Xa Act, Unfractionated 0.53 IU/mL (0.30-0.70) 0.35 IU/mL (0.30-0.70) White Blood Count 5.4 x10^3/uL (4.0-11.0) 4.9 x10^3/uL (4.0-11.0) Red Blood Count 4.08 x10^6/uL (4.30-5.70) 4.17 x10^6/uL (4.30-5.70) Hemoglobin 9.0 g/dL (13.0-17.5) 9.2 g/dL (13.0-17.5) Hematocrit 29.2 % (39.0-53.0) 30.0 % (39.0-53.0) Mean Corpuscular Volume 72 fL (79-100) 72 fL (79-100) Mean Corpuscular Hemoglobin 22 pg (25-35) 22 pg (25-35) Mean Corpuscular Hemoglobin Concent 31 g/dL (31-37) 31 g/dL (31-37) Red Cell Distribution Width 30.0 % (11.5-14.5) 30.1 % (11.5-14.5) Platelet Count 304 x10^3/uL (140-400) 311 x10^3/uL (140-400) Neutrophils (%) (Auto) 42 % (31-73) Lymphocytes (%) (Auto) 48 % (24-48) Monocytes (%) (Auto) 8 % (0-9) Eosinophils (%) (Auto) 2 % (0-3) Basophils (%) (Auto) 1 % (0-3) Neutrophils # (Auto) 2.2 x10^3uL (1.8-7.7) Lymphocytes # (Auto) 2.5 x10^3/uL (1.0-4.8) Monocytes # (Auto) 0.4 x10^3/uL (0.0-1.1) Eosinophils # (Auto) 0.1 x10^3/uL (0.0-0.7) Basophils # (Auto) 0.1 x10^3/uL (0.0-0.2) Sodium Level 141 mmol/L (136-145) Potassium Level 3.9 mmol/L (3.5-5.1) Chloride Level 105 mmol/L (98-107) Carbon Dioxide Level 28 mmol/L (21-32) Anion Gap 8 (6-14) Blood Urea Nitrogen 11 mg/dL (8-26) Creatinine 1.1 mg/dL (0.7-1.3) Estimated GFR (Cockcroft-Gault) 78.5 Glucose Level 110 mg/dL (70-99) Calcium Level 8.3 mg/dL (8.5-10.1) Iron Level 18 ug/dL (65-175) Total Iron Binding Capacity 311 ug/dL (250-450) Iron Saturation 6 % (15-34) Laboratory Tests Test 03/03/19 04:10 White Blood Count 4.9 x10^3/uL (4.0-11.0) Red Blood Count 4.17 x10^6/uL (4.30-5.70) Hemoglobin 9.2 g/dL (13.0-17.5) Hematocrit 30.0 % (39.0-53.0) Mean Corpuscular Volume 72 fL (79-100) Mean Corpuscular Hemoglobin 22 pg (25-35) Mean Corpuscular Hemoglobin Concent 31 g/dL (31-37) Red Cell Distribution Width 30.1 % (11.5-14.5) Platelet Count 311 x10^3/uL (140-400) Medications Active Scripts Medications Dose Route/Sig Max Daily Dose Days Date Category Dose Instructions Prednisone (Prednisone) 10 Mg Tablet 10 Mg PO DAILY 9 01/30/19 Rx Aspirin 81 Mg Tab.chew 1 Tab PO DAILY 01/30/19 Rx Montelukast Sodium Tablet (Montelukast Sodium) 10 Mg Tablet 10 Mg PO QHS 30 01/30/19 Rx Culturelle (Lactobacillus Rhamnosus Gg) 1 Each Cap.sprink 1 Cap PO BID 10 01/30/19 Rx Advair 250-50 Diskus (Fluticasone/Salmeterol) 1 Each Disk.w.dev 1 Puff IH BID 01/30/19 Rx Fludrocortisone Acetate 0.1 Mg Tablet 0.1 Mg PO DAILY 30 01/30/19 Rx Amitiza (Lubiprostone) 8 Mcg Capsule 24 Mcg PO BIDWMEALS 30 01/30/19 Rx Amiodarone Hcl 200 Mg Tablet 200 Mg PO DAILY 30 01/30/19 Rx Poly-Iron (Iron Polysaccharides Complex) 150 Mg Capsule 150 Mg PO DAILY 30 01/30/19 Rx Midodrine Hcl 2.5 Mg Tablet 2.5 Mg PO [id number] 30 01/30/19 Rx Trazodone Hcl 100 Mg Tablet 100 Mg PO QHS 12/10/18 Reported Oxycodone Hcl 20 Mg Tablet 20 Mg PO TID PRN PRN 12/10/18 Reported Betapace (Sotalol Hcl) 80 Mg Tablet 40 Mg PO BID 30 11/05/18 Rx Duoneb 0.5-3(2.5) Mg/3 Ml (Albuterol/Ipratropium) 3 Ml Ampul.neb 3 Ml NEB RTQID 30 11/05/18 Rx Vitamin B-1 (Thiamine Mononitrate) 100 Mg Tablet 100 Mg PO DAILY 30 08/23/18 Rx [Pantoprazole] 40 MG Tablet.dr 40 Mg PO DAILYAC 30 08/23/18 Rx Proair Hfa Inhaler (Albuterol Sulfate) 8.5 Gm Hfa.aer.ad 1 Puff INH PRN Q6HRS PRN 07/01/18 Rx Simvastatin 20 Mg Tablet 1 Tab PO QHS 10/18/14 Reported Gabapentin (Gabapentin) 300 Mg Capsule 300 Mg PO PRN TID PRN 01/29/14 Reported can take 1 or 2 capsules Digoxin 125 Mcg Tablet 125 Mcg PO DAILY 01/29/14 Reported Impression . 1. Acute pulmonary embolism in a patient who has not been ambulatory since his back surgeries. The patient states that he was on Xarelto, which was stopped about a month ago, which he was taking for his heart. He has no deep venous thrombosis. His risk factor is likely related to inactivity. He would benefit from lifelong anticoagulation. 2. History of chronic obstructive pulmonary disease, clinically compensated. 3. History of cardiomyopathy. His last echo was on 01/25/2019. At that time, his ejection fraction has actually improved to 60-65%. 4. Epigastric pain, anorexia, RICHARD - unclear when last EGD, had colonoscopy in 2014 ?h/o achalasia/myotomy Plan . 1. XARELTO 2. GI REC FOR EPIGASTRIC PAIN 3. Due to his ongoing risk factor with his immobility, I would recommend that leave him on Xarelto lifelong as long as it is safe. 4. P.r.n. oxygen. 5. Discussed with RN./ VERONICA SEALS MD March 03, 2019 10:58
[2019-03-03 11:00] VITALS: BP 119/69
[2019-03-03] MEDS: FERROUS SULFATE 325 MG TABLET. PO SCH ×2 (12:32→17:44)
--- NOTE | 2019-03-03 13:38 | NUR ---
SS following up with discharge planning. Pt is currently on room air. PT evaluated pt and recommended home independent. SS will continue to follow for pending discharge needs.
[2019-03-03 15:00] VITALS: BP 122/72
--- NOTE | 2019-03-03 16:56 | PDOC ---
PROGRESS NOTES Subjective Subjective Patient continues to have epigastric and low chest pain. Patient with poor mobility and ability to care for himself. Patient lives at home by himself. Objective Objective Vital Signs Date Time Temp Pulse Resp B/P (MAP) Pulse Ox O2 Delivery O2 Flow Rate FiO2 03/03/19 16:02 Room Air 03/03/19 15:00 98.2 69 16 122/72 (89) 97 98.2 Intake and Output 03/03/19 07:00 Intake Total 3029.18 ml Output Total 75 ml Balance 2954.18 ml Intake Oral 2140 ml IV Total 889.18 ml Output Urine Total 75 ml # Voids 4 Physical Exam Abdomen: Normal bowel sounds Heart: Regular rate Extremities: No edema General: Alert Lungs: Clear to auscultation Assessment Assessment Problems Medical Problems: (1) Chest pain Status: Acute (2) PE (pulmonary embolism) Status: Acute Pulmonary Emboli Pleuritic chest pain rule out pulmonary infarct Abd Pain Coronary artery disease. History of congestive heart failure and cardiomyopathy with AICD in place last echo showed improve EF 55% Chronic atrial fibrillation. Hypertension. Hyperlipidemia. Chronic low back pain. COPD. Orthostatic hypotension. BPH. Lower extremity neuropathy. Plan Plan of Care Continue to monitor pain and physical abilities. Repeat chest x-ray Continue PT and OT modalities. Comment Review of Relevant I have reviewed the following items mckayla (where applicable) has been applied. Labs Laboratory Tests Test 03/02/19 03:35 03/03/19 04:10 White Blood Count 5.4 x10^3/uL (4.0-11.0) 4.9 x10^3/uL (4.0-11.0) Red Blood Count 4.08 x10^6/uL (4.30-5.70) 4.17 x10^6/uL (4.30-5.70) Hemoglobin 9.0 g/dL (13.0-17.5) 9.2 g/dL (13.0-17.5) Hematocrit 29.2 % (39.0-53.0) 30.0 % (39.0-53.0) Mean Corpuscular Volume 72 fL (79-100) 72 fL (79-100) Mean Corpuscular Hemoglobin 22 pg (25-35) 22 pg (25-35) Mean Corpuscular Hemoglobin Concent 31 g/dL (31-37) 31 g/dL (31-37) Red Cell Distribution Width 30.0 % (11.5-14.5) 30.1 % (11.5-14.5) Platelet Count 304 x10^3/uL (140-400) 311 x10^3/uL (140-400) Neutrophils (%) (Auto) 42 % (31-73) Lymphocytes (%) (Auto) 48 % (24-48) Monocytes (%) (Auto) 8 % (0-9) Eosinophils (%) (Auto) 2 % (0-3) Basophils (%) (Auto) 1 % (0-3) Neutrophils # (Auto) 2.2 x10^3uL (1.8-7.7) Lymphocytes # (Auto) 2.5 x10^3/uL (1.0-4.8) Monocytes # (Auto) 0.4 x10^3/uL (0.0-1.1) Eosinophils # (Auto) 0.1 x10^3/uL (0.0-0.7) Basophils # (Auto) 0.1 x10^3/uL (0.0-0.2) Heparin Anti-Xa Act, Unfractionated 0.35 IU/mL (0.30-0.70) Sodium Level 141 mmol/L (136-145) Potassium Level 3.9 mmol/L (3.5-5.1) Chloride Level 105 mmol/L (98-107) Carbon Dioxide Level 28 mmol/L (21-32) Anion Gap 8 (6-14) Blood Urea Nitrogen 11 mg/dL (8-26) Creatinine 1.1 mg/dL (0.7-1.3) Estimated GFR (Cockcroft-Gault) 78.5 Glucose Level 110 mg/dL (70-99) Calcium Level 8.3 mg/dL (8.5-10.1) Iron Level 18 ug/dL (65-175) Total Iron Binding Capacity 311 ug/dL (250-450) Iron Saturation 6 % (15-34) Laboratory Tests Test 03/03/19 04:10 White Blood Count 4.9 x10^3/uL (4.0-11.0) Red Blood Count 4.17 x10^6/uL (4.30-5.70) Hemoglobin 9.2 g/dL (13.0-17.5) Hematocrit 30.0 % (39.0-53.0) Mean Corpuscular Volume 72 fL (79-100) Mean Corpuscular Hemoglobin 22 pg (25-35) Mean Corpuscular Hemoglobin Concent 31 g/dL (31-37) Red Cell Distribution Width 30.1 % (11.5-14.5) Platelet Count 311 x10^3/uL (140-400) Medications Current Medications Fentanyl Citrate (Fentanyl 2ml Vial) 25 mcg 1X ONCE IV Last administered on 03/01/19at 00:33; Start 02/28/19 at 20:30; Stop 02/28/19 at 20:31; Status DC Aspirin (Children'S Aspirin) 324 mg 1X ONCE PO Last administered on 03/01/19 00:33; Start 02/28/19 at 23:00; Stop 02/28/19 at 23:01; Status DC Heparin Sodium (Porcine) (Heparin Sodium) 5,450 unit 1X ONCE IV Last administered on 03/01/19at 00:35; Start 03/01/19 at 00:30; Stop 03/01/19 at 00:31; Status DC Heparin Sodium/ Dextrose 500 ml @ 0 mls/hr CONT PRN IV SEE I/O RECORD Last administered on 03/01/19at 21:56; Start 03/01/19 at 00:15; Stop 03/02/19 at 18:22; Status DC Heparin Sodium (Porcine) (Heparin Sodium) 2,050 unit PRN Q6HRS PRN IV FOR UFH LEVEL LESS THAN 0.2; Start 03/01/19 at 00:15; Stop 03/02/19 at 18:22; Status DC Heparin Sodium (Porcine) (Heparin Sodium) 1,000 unit PRN Q6HRS PRN IV FOR UFH LEVEL 0.2 - 0.29; Start 03/01/19 at 00:15; Stop 03/02/19 at 18:22; Status DC Info (Anti-Coagulation Monitoring By Pharmacy) 1 each PRN DAILY PRN MC SEE COMMENTS Last administered on 03/03/19at 10:49; Start 03/01/19 at 00:15 Fentanyl Citrate (Fentanyl 2ml Vial) 25 mcg PRN Q2HR PRN IV severe pain Last administered on 03/01/19at 08:44; Start 03/01/19 at 01:45; Stop 03/02/19 at 01:44; Status DC Acetaminophen (Tylenol) 650 mg PRN Q4HRS PRN PO FEVER; Start 03/01/19 at 01:45; Stop 03/02/19 at 01:44; Status DC Albuterol Sulfate (Ventolin Neb Soln) 2.5 mg PRN Q6HRS PRN INH SHORTNESS OF BREATH; Start 03/01/19 at 06:30 Amiodarone HCl (Cordarone) 200 mg DAILY PO Last administered on 03/03/19 08:40; Start 03/01/19 at 09:00 Aspirin (Children'S Aspirin) 81 mg DAILY PO Last administered on 03/03/19 08:40; Start 03/01/19 at 09:00 Digoxin (Lanoxin) 125 mcg DAILY PO Last administered on 03/03/19 08:39; Start 03/01/19 at 09:00 Fludrocortisone Acetate (Florinef) 0.1 mg DAILY PO Last administered on 03/03/19 08:39; Start 03/01/19 at 09:00 Gabapentin (Neurontin) 300 mg PRN TID PRN PO NEUROPATHIC PAIN Last administered on 03/01/19 08:46; Start 03/01/19 at 06:30 Albuterol/ Ipratropium (Duoneb) 3 ml RTQID NEB Last administered on 03/03/19 16:02; Start 03/01/19 at 08:00 Lubiprostone (Amitiza) 24 mcg BIDWMEALS PO Last administered on 03/03/19 08:39; Start 03/01/19 at 08:00 Trazodone HCl (Desyrel) 100 mg QHS PO Last administered on 03/02/19 21:35; Start 03/01/19 at 21:00 Budesonide (Pulmicort) 0.5 mg RTBID NEB Last administered on 03/03/19 06:15; Start 03/01/19 at 08:00 Polysaccharide Iron Complex (Niferex 150) 150 mg DAILY PO Last administered on 03/03/19 08:40; Start 03/01/19 at 09:00; Stop 03/03/19 at 10:21; Status DC Midodrine (Proamatine) 2.5 mg [id number] PO Last administered on 03/03/19 12:34; Start 03/01/19 at 07:00 Montelukast Sodium (Singulair) 10 mg QHS PO Last administered on 03/02/19 21:35; Start 03/01/19 at 21:00 Oxycodone HCl (Roxicodone) 20 mg PRN TID PRN PO SEVERE PAIN 7-10 Last administered on 03/03/19 07:28; Start 03/01/19 at 06:45 Atorvastatin Calcium (Lipitor) 10 mg QHS PO Last administered on 03/02/19 21:35; Start 03/01/19 at 21:00 Pantoprazole Sodium (Protonix) 40 mg DAILYAC PO Last administered on 03/03/19 07:23; Start 03/01/19 at 07:30; Stop 03/03/19 at 10:21; Status DC Albuterol/ Ipratropium (Duoneb) 3 ml RTQID NEB ; Start 03/01/19 at 08:00; Status UNV Tamsulosin HCl (Flomax) 0.4 mg QHS PO Last administered on 03/02/19 21:34; Start 03/01/19 at 21:00 Rivaroxaban (Xarelto) 15 mg BIDWMEALS PO Last administered on 03/03/19 08:39; Start 03/02/19 at 18:30; Stop 03/12/19 at 17:01 Famotidine (Pepcid) 20 mg BID PO Last administered on 03/03/19 08:39; Start 03/02/19 at 21:00; Stop 03/03/19 at 10:21; Status DC Pantoprazole Sodium (Protonix) 40 mg BIDAC PO ; Start 03/03/19 at 16:30 Ferrous Sulfate (Feosol) 325 mg BIDWMEALS PO Last administered on 03/03/19at 12:32; Start 03/03/19 at 12:00 Rivaroxaban (Xarelto) 20 mg DAILYWSUP PO ; Start 03/13/19 at 17:00 Active Scripts Active Prednisone (Prednisone) 10 Mg Tablet 10 Mg PO DAILY 9 Days Aspirin 81 Mg Tab.chew 1 Tab PO DAILY Montelukast Sodium Tablet (Montelukast Sodium) 10 Mg Tablet 10 Mg PO QHS 30 Days Culturelle (Lactobacillus Rhamnosus Gg) 1 Each Cap.sprink 1 Cap PO BID 10 Days Advair 250-50 Diskus (Fluticasone/Salmeterol) 1 Each Disk.w.dev 1 Puff IH BID Fludrocortisone Acetate 0.1 Mg Tablet 0.1 Mg PO DAILY 30 Days Amitiza (Lubiprostone) 8 Mcg Capsule 24 Mcg PO BIDWMEALS 30 Days Amiodarone Hcl 200 Mg Tablet 200 Mg PO DAILY 30 Days Poly-Iron (Iron Polysaccharides Complex) 150 Mg Capsule 150 Mg PO DAILY 30 Days Midodrine Hcl 2.5 Mg Tablet 2.5 Mg PO [id number] 30 Days Betapace (Sotalol Hcl) 80 Mg Tablet 40 Mg PO BID 30 Days Duoneb 0.5-3(2.5) Mg/3 Ml (Albuterol/Ipratropium) 3 Ml Ampul.neb 3 Ml NEB RTQID 30 Days Vitamin B-1 (Thiamine Mononitrate) 100 Mg Tablet 100 Mg PO DAILY 30 Days [Pantoprazole] 40 MG Tablet.dr 40 Mg PO DAILYAC 30 Days Proair Hfa Inhaler (Albuterol Sulfate) 8.5 Gm Hfa.aer.ad 1 Puff INH PRN Q6HRS PRN Reported Trazodone Hcl 100 Mg Tablet 100 Mg PO QHS Oxycodone Hcl 20 Mg Tablet 20 Mg PO TID PRN PRN Simvastatin 20 Mg Tablet 1 Tab PO QHS Gabapentin (Gabapentin) 300 Mg Capsule 300 Mg PO PRN TID PRN can take 1 or 2 capsules Digoxin 125 Mcg Tablet 125 Mcg PO DAILY Vitals/I & O Vital Sign - Last 24 Hours 03/02/19 03/02/19 03/02/19 03/02/19 17:36 19:45 20:00 23:49 Temp 98.4 98.3 98.4 98.3 Pulse 71 76 73 Resp 17 16 B/P (MAP) 121/68 128/72 (90) 115/67 (83) Pulse Ox 97 97 O2 Delivery Room Air Room Air Room Air 03/03/19 03/03/19 03/03/19 03/03/19 03:35 06:13 07:00 07:24 Temp 98.8 98.4 98.8 98.4 Pulse 73 71 86 Resp 16 18 B/P (MAP) 110/59 (76) 127/74 (91) 127/74 Pulse Ox 96 97 O2 Delivery Room Air Room Air Room Air 03/03/19 03/03/19 03/03/19 03/03/19 08:00 08:39 08:40 11:00 Temp 98.6 98.6 Pulse 86 86 71 Resp 16 B/P (MAP) 127/74 127/74 119/69 (86) Pulse Ox 95 O2 Delivery Room Air Room Air 03/03/19 03/03/19 03/03/19 03/03/19 12:27 12:34 15:00 16:02 Temp 98.2 98.2 Pulse 85 69 Resp 16 B/P (MAP) 123/72 122/72 (89) Pulse Ox 97 O2 Delivery Room Air Room Air Room Air Intake and Output 03/02/19 03/02/19 03/03/19 15:00 23:00 07:00 Intake Total 540 ml 2089.18 ml 400 ml Output Total 75 ml Balance 540 ml 2014.18 ml 400 ml ZULMA GOINS MD March 03, 2019 16:56
[2019-03-03 19:51] VITALS: BP 121/69
[2019-03-03] MEDS: traZODone 100 MG TABLET. PO SCH (21:54)
[2019-03-03] MEDS: ATORVASTATIN CALCIUM 10 MG TABLET. PO SCH (21:54)
[2019-03-03] MEDS: TAMSULOSIN 0.4 MG CAP.ER.24H. PO SCH (21:54)
[2019-03-03] MEDS: GABAPENTIN 300 MG CAPSULE. PO PRN (21:54)
[2019-03-03] MEDS: MONTELUKAST SODIUM 10 MG TABLET. PO SCH (21:54)
[2019-03-03 22:17] VITALS: BP 114/74
[2019-03-04 03:45] VITALS: BP 107/61
[2019-03-04 05:35] LABS: HEMATOCRIT 28.7 % (39.0-53.0); HEMOGLOBIN 8.8 g/dL (13.0-17.5); RED BLOOD COUNT 3.97 x10^6/uL (4.30-5.70); RED CELL DISTRIBUTION WIDTH 29.9 % (11.5-14.5); WHITE BLOOD COUNT 4.7 x10^3/uL (4.0-11.0)
[2019-03-04] MEDS: MIDODRINE 2.5 MG TABLET PO SCH ×3 (06:13→17:18)
[2019-03-04] MEDS: PANTOPRAZOLE 40 MG TABLET.DR. PO SCH ×2 (06:14→17:18)
[2019-03-04 07:32] VITALS: BP 107/63
[2019-03-04] MEDS: BUDESONIDE 0.5 MG/2 ML NEBU. NEB SCH (08:03)
[2019-03-04] MEDS: IPRATRPIUM/ALBUTEROL 0.5/2.5MG 3 ML NEBU. NEB SCH ×3 (08:03→16:00)
[2019-03-04] MEDS: ASPIRIN CHEWABLE 81 MG TABLET. PO SCH (08:17)
[2019-03-04] MEDS: RIVAROXABAN 15 MG TABLET. PO SCH ×2 (08:17→17:19)
[2019-03-04] MEDS: AMIODARONE HCL 200 MG TABLET. PO SCH (08:18)
[2019-03-04] MEDS: DIGOXIN 125 MCG TABLET. PO SCH (08:18)
[2019-03-04] MEDS: FERROUS SULFATE 325 MG TABLET. PO SCH ×2 (08:18→17:19)
[2019-03-04] MEDS: FLUDROCORTISONE 0.1 MG TABLET PO SCH (08:19)
[2019-03-04] MEDS: LUBIPROSTONE 8 MCG CAPSULE PO SCH ×2 (08:37→17:18)
--- NOTE | 2019-03-04 09:15 | RAD ---
Chest, 2 views, 03/04/2019: HISTORY: Chest pain Comparison is made to a study from 02/28/2019. The left-sided transvenous pacing device is unchanged with 3 leads extending into the right heart. The heart size is normal. There is tortuosity of the thoracic aorta. The lungs are hyperexpanded compatible with emphysema. Several surgical clips are present medially in the left base. There is blunting of the costophrenic angles bilaterally suggesting a tiny amount pleural fluid versus scarring. There is minimal streaky left basilar opacity. The upper lung holt are clear. Moderate spurring is present in the spine. IMPRESSION: 1. Emphysema. 2. Minimal streaky left basilar atelectasis/infiltrate. 3. Probable tiny bilateral pleural effusions. Electronically signed by: Reynaldo Drake MD (03/04/2019 9:12 AM) [facility]
[2019-03-04 10:45] VITALS: BP 115/63
--- NOTE | 2019-03-04 10:54 | PDOC ---
PULMONARY PROGRESS NOTES Subjective continues to have non specific pains does not feel well Vitals Vital Signs Date Time Temp Pulse Resp B/P (MAP) Pulse Ox O2 Delivery O2 Flow Rate FiO2 03/04/19 10:45 97.5 69 16 115/63 (80) 95 Room Air 97.5 General: Alert, No acute distress HEENT: Other Lungs: Clear Cardiovascular: S1, S2 Abdomen: Soft, Non-tender Extremities: No Edema Labs Laboratory Tests Test 03/03/19 04:10 03/04/19 05:00 White Blood Count 4.9 x10^3/uL (4.0-11.0) 4.7 x10^3/uL (4.0-11.0) Red Blood Count 4.17 x10^6/uL (4.30-5.70) 3.97 x10^6/uL (4.30-5.70) Hemoglobin 9.2 g/dL (13.0-17.5) 8.8 g/dL (13.0-17.5) Hematocrit 30.0 % (39.0-53.0) 28.7 % (39.0-53.0) Mean Corpuscular Volume 72 fL (79-100) 72 fL (79-100) Mean Corpuscular Hemoglobin 22 pg (25-35) 22 pg (25-35) Mean Corpuscular Hemoglobin Concent 31 g/dL (31-37) 31 g/dL (31-37) Red Cell Distribution Width 30.1 % (11.5-14.5) 29.9 % (11.5-14.5) Platelet Count 311 x10^3/uL (140-400) 268 x10^3/uL (140-400) Erythrocyte Sedimentation Rate 11 (0-15) Laboratory Tests Test 03/04/19 05:00 White Blood Count 4.7 x10^3/uL (4.0-11.0) Red Blood Count 3.97 x10^6/uL (4.30-5.70) Hemoglobin 8.8 g/dL (13.0-17.5) Hematocrit 28.7 % (39.0-53.0) Mean Corpuscular Volume 72 fL (79-100) Mean Corpuscular Hemoglobin 22 pg (25-35) Mean Corpuscular Hemoglobin Concent 31 g/dL (31-37) Red Cell Distribution Width 29.9 % (11.5-14.5) Platelet Count 268 x10^3/uL (140-400) Erythrocyte Sedimentation Rate 11 (0-15) Medications Active Scripts Medications Dose Route/Sig Max Daily Dose Days Date Category Dose Instructions Prednisone (Prednisone) 10 Mg Tablet 10 Mg PO DAILY 9 01/30/19 Rx Aspirin 81 Mg Tab.chew 1 Tab PO DAILY 01/30/19 Rx Montelukast Sodium Tablet (Montelukast Sodium) 10 Mg Tablet 10 Mg PO QHS 30 01/30/19 Rx Culturelle (Lactobacillus Rhamnosus Gg) 1 Each Cap.sprink 1 Cap PO BID 10 01/30/19 Rx Advair 250-50 Diskus (Fluticasone/Salmeterol) 1 Each Disk.w.dev 1 Puff IH BID 01/30/19 Rx Fludrocortisone Acetate 0.1 Mg Tablet 0.1 Mg PO DAILY 30 01/30/19 Rx Amitiza (Lubiprostone) 8 Mcg Capsule 24 Mcg PO BIDWMEALS 30 01/30/19 Rx Amiodarone Hcl 200 Mg Tablet 200 Mg PO DAILY 30 01/30/19 Rx Poly-Iron (Iron Polysaccharides Complex) 150 Mg Capsule 150 Mg PO DAILY 30 01/30/19 Rx Midodrine Hcl 2.5 Mg Tablet 2.5 Mg PO [id number] 30 01/30/19 Rx Trazodone Hcl 100 Mg Tablet 100 Mg PO QHS 12/10/18 Reported Oxycodone Hcl 20 Mg Tablet 20 Mg PO TID PRN PRN 12/10/18 Reported Betapace (Sotalol Hcl) 80 Mg Tablet 40 Mg PO BID 30 11/05/18 Rx Duoneb 0.5-3(2.5) Mg/3 Ml (Albuterol/Ipratropium) 3 Ml Ampul.neb 3 Ml NEB RTQID 30 11/05/18 Rx Vitamin B-1 (Thiamine Mononitrate) 100 Mg Tablet 100 Mg PO DAILY 30 08/23/18 Rx [Pantoprazole] 40 MG Tablet.dr 40 Mg PO DAILYAC 30 08/23/18 Rx Proair Hfa Inhaler (Albuterol Sulfate) 8.5 Gm Hfa.aer.ad 1 Puff INH PRN Q6HRS PRN 07/01/18 Rx Simvastatin 20 Mg Tablet 1 Tab PO QHS 12/31/14 Reported Gabapentin (Gabapentin) 300 Mg Capsule 300 Mg PO PRN TID PRN 01/29/14 Reported can take 1 or 2 capsules Digoxin 125 Mcg Tablet 125 Mcg PO DAILY 01/29/14 Reported Impression . 1. Acute pulmonary embolism in a patient who has not been ambulatory since his back surgeries. The patient states that he was on Xarelto, which was stopped about a month ago, which he was taking for his heart. He has no deep venous thrombosis. His risk factor is likely related to inactivity. He would benefit from lifelong anticoagulation. 2. History of chronic obstructive pulmonary disease, clinically compensated. 3. History of cardiomyopathy. His last echo was on 01/25/2019. At that time, his ejection fraction has actually improved to 60-65%. 4. Epigastric pain, anorexia, RICHARD - unclear when last EGD, had colonoscopy in 2014 ?h/o achalasia/myotomy Plan . 1. XARELTO 2. GI REC FOR EPIGASTRIC PAIN 3. Due to his ongoing risk factor with his immobility, I would recommend that leave him on Xarelto lifelong as long as it is safe. 4. P.r.n. oxygen. 5. Discussed with RN. VERONICA GASTELUM MD March 04, 2019 10:54
[2019-03-04] MEDS ORDERED: IV RINGERS,LACTATED 1000ML 1,000 ML IV SCH ×2 (14:18→16:00)
[2019-03-04] MEDS ORDERED: LIDOCAINE 1% PF 2 ML VIAL. ID PRN (14:30)
[2019-03-04] MEDS ORDERED: MIDAZOLAM HCL/PF 2 MG/2 ML VIAL. IV PRN (14:30)
[2019-03-04] MEDS ORDERED: fentaNYL PF VIAL 100 MCG/2 ML VIAL IV PRN ×2 (14:30)
[2019-03-04 14:39] VITALS: BP 125/72
[2019-03-04] MEDS ORDERED: LIDOCAINE 2% PF 5 ML VIAL. ONE (15:34)
[2019-03-04] MEDS ORDERED: PROPOFOL 20 ML IV ONE (15:34)
--- NOTE | 2019-03-04 15:57 | PDOC4 ---
PROCEDURE Procedure EGD Indication: upper abd pain/occasional dysphagia. Meds: per anesthesia Findings: E--Dilated, no motility. Some residual food/saliva. Some friability at GEJ. No fixed narrowing and can traverse w/o resistance. G--S/p fundoplication (suspect along with Heller myotomy for achalasia). D--Normal to second portion. Darryl. well. IMP: Probable Achalasia, s/p myotomy and fundoplication. Strangely enough, achalasia patients can have heartburn as a symptom though obviously do not reflux. S/p fundoplication; this likely at least occasionally acts as a functional obstruction. Dilation will not be helpful as not a tight wrap. REC: Continue as now. Nothing we can do to improve motility; doubt metoclopramide would be helpful. Thanks. ZULMA COOPER MD March 04, 2019 15:57
[2019-03-04] MEDS ORDERED: RIVA15TA PO (17:06)
[2019-03-04 17:18] VITALS: BP 124/62
--- NOTE | 2019-03-04 17:19 | PDOC3 ---
Discharge Summary [facility] Date of Admission: February 28, 2019 Discharge Date: March 04, 2019 Admitting Diagnosis chest pain from achalasia and pulmonary embolism Final Diagnosis Problems Medical Problems: (1) Chest pain Status: Acute (2) PE (pulmonary embolism) Status: Acute CONSULTS pulm, GI Procedures EGD Brief Hospital Course Mr. Sterling is a 79 old who presented with chest pain and elevated D-dimer and found to have had a PE, he was started back on Xarelto which had been stopped a month ago at discharge due to his orthostatic dizziness and high fall risk, he had been maintained on daily ASA 81 mg though. He did not have a DVT per imaging. He continued to have substernal chest pain and epigastric pain so an EGD was done showing achalasia and previous fundoplication changes without gastritis or other sins of GI bleeding. No treatment is possible for the achalasia other than moist foods/liquids. He did not experience dizziness during his hospital stay and PT eval found him to be independent but also non compliant with recommendations for walker Patient History: FH: colon cancer 32 MOTHER FH: spina bifida G8 DAUGHTER Heart attack 33 FATHER Obesity G8 DAUGHTER CONDITION AT DISCHARGE: Improved, Stable Diet moist foods and liquids Scheduled Amiodarone Hcl (Amiodarone Hcl), 200 MG PO DAILY Aspirin (Aspirin), 1 TAB PO DAILY Digoxin (Digoxin), 125 MCG PO DAILY, (Reported) Fluticasone/Salmeterol (Advair 250-50 Diskus), 1 PUFF IH BID Ipratropium/Albuterol Sulfate (Duoneb 0.5-3(2.5) Mg/3 Ml), 3 ML NEB RTQID Iron Polysaccharides Complex (Poly-Iron), 150 MG PO DAILY Lubiprostone (Amitiza), 24 MCG PO BIDWMEALS Midodrine Hcl (Midodrine Hcl), 2.5 MG PO [id number] Montelukast Sodium (Montelukast Sodium Tablet), 10 MG PO QHS Rivaroxaban (Xarelto), 15 MG PO BIDWMEALS Simvastatin (Simvastatin), 1 TAB PO QHS, (Reported) Sotalol Hcl (Betapace), 40 MG PO BID Thiamine Mononitrate (Vitamin B-1), 100 MG PO DAILY Trazodone Hcl (Trazodone Hcl), 100 MG PO QHS, (Reported) [Pantoprazole], 40 MG PO DAILYAC Scheduled PRN Albuterol Sulfate (Proair Hfa Inhaler), 1 PUFF INH PRN Q6HRS PRN for SHORTNESS O F BREATH Gabapentin (Gabapentin ), 300 MG PO PRN TID PRN for PAIN, (Reported) Oxycodone Hcl (Oxycodone Hcl), 20 MG PO TID PRN PRN for PAIN, (Reported) Discontinued Medications Amoxicillin/Potassium Clav (Amox Tr-K Clv 875-125 Mg Tab), 1 TAB PO BID Fludrocortisone Acetate (Fludrocortisone Acetate), 0.1 MG PO DAILY Lactobacillus Rhamnosus Gg (Culturelle), 1 CAP PO BID Prednisone (Prednisone ), 10 MG PO DAILY Follow Up 1-2 weeks Hazel MEADWOS MD March 04, 2019 17:19
[2019-03-13] MEDS ORDERED: RIVAROXABAN 10 MG TABLET. PO SCH (17:00)
== END 2019-03-04 18:40 | disposition home or self-care (01) | DRG 391 ==
LOC: ER 19:03 → 2 SOUTH 22:55
PROVIDERS: ADMIT Family Medicine; ATTEND Family Medicine
PROC: 0DJ08ZZ Inspection of Upper Intestinal Tract, Via Natural or Artificial Opening Endoscopic (ICD-10-PCS; principal; 2019-02-28)
DX: K22.0 Achalasia of cardia (principal); I26.99 Other pulmonary embolism without acute cor pulmonale; I42.9 Cardiomyopathy, unspecified; E78.5 Hyperlipidemia, unspecified; F03.90 Unspecified dementia, unspecified severity, without behavioral disturbance, psychotic disturbance, mood disturbance, and anxiety; F17.210 Nicotine dependence, cigarettes, uncomplicated; G51.0 Bell's palsy; G57.90 Unspecified mononeuropathy of unspecified lower limb; G89.29 Other chronic pain; I11.0 Hypertensive heart disease with heart failure; I25.10 Atherosclerotic heart disease of native coronary artery without angina pectoris; I48.2 Chronic atrial fibrillation; I50.9 Heart failure, unspecified; I95.1 Orthostatic hypotension; J44.9 Chronic obstructive pulmonary disease, unspecified; K21.9 Gastro-esophageal reflux disease without esophagitis; K57.90 Diverticulosis of intestine, part unspecified, without perforation or abscess without bleeding; N28.1 Cyst of kidney, acquired; N40.0 Benign prostatic hyperplasia without lower urinary tract symptoms; Z79.01 Long term (current) use of anticoagulants; Z79.82 Long term (current) use of aspirin; Z80.0 Family history of malignant neoplasm of digestive organs; Z82.49 Family history of ischemic heart disease and other diseases of the circulatory system; Z86.73 Personal history of transient ischemic attack (TIA), and cerebral infarction without residual deficits; Z91.19 Patient's noncompliance with other medical treatment and regimen; Z91.81 History of falling; Z95.1 Presence of aortocoronary bypass graft; Z86.79 Personal history of other diseases of the circulatory system; Z95.810 Presence of automatic (implantable) cardiac defibrillator; Z98.1 Arthrodesis status; Z88.8 Allergy status to other drugs, medicaments and biological substances; Z91.040 Latex allergy status
CPT/HCPCS: 36415; 43235; 71045; 71046; 76700; 78582; 80048; 80053; 80162; 82553; 83540; 83550; 83690; 83735; 83880; 84484; 85025; 85027; 85379; 85520; 85610; 85651; 85730; 93005; 93970; 94640; 94760; 96374; 96375; A9540; A9558; J1644; J2001; J2704; J3010; J7120; J7620; J7626; 97530; 99285-25

== ENCOUNTER 2019-04-04 09:00 | Inpatient (IN) | payer MEDICARE, BC ==
[~2019-04-04] VITALS: Ht 190.5 cm; Wt 74.2 kg
[~2019-04-04 09:00] MED LIST changes: +MONT10TA49 PO; -MONT10TA9 PO
[2019-04-04 10:00] LABS: CALCIUM 8.9 mg/dL (8.5-10.1); CREATININE 1.2 mg/dL (0.7-1.3); POTASSIUM 4.5 mmol/L (3.5-5.1)
[2019-04-04 10:07] LABS: BASO % 0 % (0-3); EOS % 0 % (0-3); HEMATOCRIT 37.1 % (39.0-53.0); HEMOGLOBIN 11.4 g/dL (13.0-17.5); LYMPH # 1.2 x10^3/uL (1.0-4.8); LYMPH % 11 % (24-48); MEAN CORPUSCULAR HEMOGLOBIN 22 pg (25-35); MEAN CORPUSCULAR HGB CONC 31 g/dL (31-37); MEAN CORPUSCULAR VOLUME 73 fL (79-100); MONO # 1.2 x10^3/uL (0.0-1.1); MONO % 11 % (0-9); NEUT # 8.3 x10^3uL (1.8-7.7); NEUT % 77 % (31-73); PLATELET COUNT 317 x10^3/uL (140-400); RED CELL DISTRIBUTION WIDTH 25.7 % (11.5-14.5); WHITE BLOOD COUNT 10.8 x10^3/uL (4.0-11.0)
[2019-04-04 10:14] LABS: ALBUMIN 3.1 g/dL (3.4-5.0); ALBUMIN/GLOBULIN RATIO 0.8 (1.0-1.7); TOTAL BILIRUBIN 0.7 mg/dL (0.2-1.0); TOTAL PROTEIN 6.9 g/dL (6.4-8.2)
[2019-04-04 10:19] LABS: CREATINE KINASE 70 U/L (39-308)
--- NOTE | 2019-04-04 10:38 | RAD ---
Acute abdomen series with chest, 3 views, 04/04/2019: HISTORY: Abdominal pain, nausea and vomiting A bifurcated aortoiliac stent graft is in place. There are radiopacities compatible with embolization coils along the medial aspect of the right iliac component of the stent graft. The abdominal gas pattern is unremarkable. There is no evidence organomegaly. No free air is seen in the abdomen. A left-sided transvenous pacing device remains in place with 3 leads extending into the right heart. The heart size is normal. There is attenuation of the pulmonary arteries in a pattern compatible with emphysema. No pulmonary infiltrate is seen. No pleural fluid is evident. Moderate multilevel degenerative change is evident in the spine. IMPRESSION: 1. Aortoiliac stent graft in place. 2. No acute abdominal abnormality is detected. 3. Emphysema. Electronically signed by: Reynaldo Drake MD (04/04/2019 10:35 AM) [facility]
[2019-04-04] MEDS ORDERED: MORPHINE SULFATE 4 MG/ML VIAL. IV ONE (11:30)
[2019-04-04 11:49] LABS: PARTIAL THROMBOPLASTIN TIME 120 SEC (24-38)
--- NOTE | 2019-04-04 12:02 | EKG ---
[facility] [address] [place] [address] Test Date: 2019-04-04 Test Time: 09:34:06 Pat Name: GENIA MCKENZIE Department: Room: Gender: M Ring Striker: : 1940 Requested By: HILDA CARBAJAL Order Number: [id number] Reading MD: Measurements Intervals Belle Rate: 70 P: IA: QRS: -89 QRSD: 166 T: 102 QT: 452 QTc: 491 Interpretive Statements IRREGULAR RHYTHM, NO P-WAVE FOUND ABNORMAL LEFT AXIS DEVIATION NON SPECIFIC INTRAVENTRICULAR BLOCK QRS(T) CONTOUR ABNORMALITY CONSISTENT WITH ANTEROSEPTAL INFARCT AGE UNDETERMINED ABNORMAL ECG RI6.01 Unconfirmed report No previous ECG available for comparison
--- NOTE | 2019-04-04 12:25 | RAD ---
CT of the abdomen and pelvis without contrast, 04/04/2019: Abdominal pain Noncontrast scans were obtained as requested in this patient with a given history of an iodine allergy. There is mild streaky atelectasis and/or scarring in the lung bases. The unopacified liver is unremarkable. There is dense material in the gallbladder. No pericholecystic edema is seen. The pancreas is unremarkable. The spleen is of normal size. There are multiple bilateral renal cysts. One of these cysts in the lateral aspect the right kidney demonstrates minimal rim-like calcification. There is a small nonobstructing intrarenal calculus on the right. The renal collecting systems and ureters are not dilated. The prostate gland is enlarged measuring 5.3 cm in width. There is a radiopacity within the posterior aspect of the urinary bladder on the right in the absence of recent contrast injection this is presumably a calculus. A bifurcated aortoiliac stent graft is in place within a partially collapsed distal abdominal aortic aneurysm. The aneurysm sac has decreased in size since 06/06/2015 as best seen near the aortic bifurcation. 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 Adjacent dense opacities are again noted compatible with embolization coils. There are scattered colonic diverticula. No paracolonic inflammatory process is seen. The bowel loops are not dilated. No free air or free fluid is evident in the abdomen or pelvis. There is minimal nonspecific presacral edema. There are moderate scattered degenerative changes in the spine. Trabecular thickening in the proximal right femur suggests Paget's disease. There are also irregular lucencies in the sacrum which are unchanged. IMPRESSION: 1. Stented abdominal aortic aneurysm which has decreased in size since 06/06/2015. 2. 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 3. Colonic diverticulosis. 4. Material of increased density in the gallbladder which may represent vicarious excretion of IV contrast, if the patient has had a recent contrast exam, versus milk of calcium. 5. Prostatic enlargement. 6. Nonobstructing right intrarenal calculus. 7. Probable small bladder calculus 8. Bilateral renal cysts. 9. Minimal nonspecific presacral edema 10. 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 PQRS Compliance Statement: One or more of the following individualized dose reduction techniques were utilized for this examination: 1. Automated exposure control 2. Adjustment of the mA and/or kV according to patient size 3. Use of iterative reconstruction technique Electronically signed by: Reynaldo Drake MD (04/04/2019 12:23 PM) [facility]
[2019-04-04 13:13] LABS: HYPOCHROMIA MOD; PLT ESTIMATE ADEQUATE (ADEQUATE)
[2019-04-04 13:14] LABS: ANISOCYTOSIS MARKED; MICROCYTOSIS PRESENT
[2019-04-04] MEDS ORDERED: ONDANSETRON PF 4 MG/2 ML VIAL. IV ONE (13:30)
[2019-04-04] MEDS ORDERED: KETOROLAC 30 MG/ML VIAL. IV ONE (13:30)
[2019-04-04] MEDS ORDERED: PHYTONADIONE (VIT K1) IV 10 MG in IV DEXTROSE 5% 50 ML IV ONE (14:00)
--- NOTE | 2019-04-04 14:20 | PHYS DOC ---
Past Medical History Past Medical History: A-Fib, COPD, Depression, Heart Disease, Hypertension, TIA Additional Past Medical Histor: BACK PAIN Past Surgical History: Lumbar Laminectomy, Pacemaker, Other Additional Past Surgical Histo: esophagus; hernia; Alcohol Use: Rarely Drug Use: None Adult General Chief Complaint Chief Complaint: NAUSEA/VOMITING/DIARRHA HPI HPI Patient is a 79 year old male presented to ER today for evaluation of nausea, vomiting, abdominal pain off and on for a week. The symptoms get worse the last couple days, not able to keep any medication down this morning. he also complained of back pain. Patient denies bowel or bladder incontinence. Patient had not had a bowel movement for the last 2 days. He denies any blood in his vomitus. He denies any headache, no blurry vision. he has history of atrial fibrillation, he was on XARELTO, however his doctor recently put him on Plavix and Coumadin instead. Review of Systems Review of Systems Constitutional: Denies fever or chills [] Eyes: Denies change in visual acuity, redness, or eye pain [] HENT: Denies nasal congestion or sore throat [] Respiratory: Denies cough or shortness of breath [] Cardiovascular: No additional information not addressed in HPI [] GI: Positive for bdominal pain, nausea, vomiting, NO bloody stools or diarrhea [] : Denies dysuria or hematuria [] Musculoskeletal: Positive for lowerback pain, no joint pain [] Integument: Denies rash or skin lesions [] Neurologic: Denies headache, focal weakness or sensory changes [] Endocrine: Denies polyuria or polydipsia [] All other systems were reviewed and found to be within normal limits, except as documented in this note. Current Medications Current Medications Current Medications Medications (Trade) Dose Ordered Sig/[facility] Start Time Stop Time Status Last Admin Dose Admin Ketorolac Tromethamine (Toradol 30mg Vial) 30 mg 1X ONCE 04/04/19 13:30 04/04/19 13:31 DC 04/04/19 13:23 30 MG Morphine Sulfate (Morphine Sulfate) 4 mg PRN Q6HRS PRN 04/04/19 14:15 04/05/19 14:14 Ondansetron HCl (Zofran) 4 mg PRN Q8HRS PRN 04/04/19 14:15 6/18/19 14:14 Phytonadione 10 mg/Dextrose 51 ml @ 102 mls/hr 1X ONCE 04/04/19 14:00 04/04/19 14:29 04/04/19 13:53 102 MLS/HR Allergies Allergies Allergies Coded Allergies Type Severity Reaction Last Updated Verified Iodinated Contrast- Oral and IV Dye Allergy Severe anaphalaxis, short of air 03/04/19 Yes adhesive Allergy Severe PAINFUL SKIN IRRITATION 03/04/19 Yes latex Allergy Intermediate Hives 03/04/19 Yes Physical Exam Physical Exam Constitutional: Well developed, well nourished, no acute distress, non-toxic appearance. [] HENT: Normocephalic, atraumatic, bilateral external ears normal, oropharynx moist, no oral exudates, nose normal. [] Eyes: PERRLA, EOMI, conjunctiva normal, no discharge. [] Neck: Normal range of motion, no tenderness, supple, no stridor. [] Cardiovascular:Heart rate regular rhythm, no murmur [] Lungs & Thorax: Bilateral breath sounds clear to auscultation [] Abdomen: Bowel sounds normal, soft, There is tenderness to palpation in suprapubic tenderness to palpation, no masses, no pulsatile masses. [] Skin: Warm, dry, no erythema, no rash. [] Back: No tenderness, no CVA tenderness. [] Extremities: No tenderness, no cyanosis, no clubbing, ROM intact, no edema. [] Neurologic: Alert and oriented X 3, normal motor function, normal sensory function, no focal deficits noted. [] Psychologic: Affect normal, judgement normal, mood normal. [] Current Patient Data Vital Signs Vital Signs Date Time Temp Pulse Resp B/P (MAP) Pulse Ox O2 Delivery O2 Flow Rate FiO2 04/04/19 13:45 68 18 153/92 (112) 97 Room Air 04/04/19 09:15 98.3 98.3 Lab Values Laboratory Tests Test 04/04/19 09:30 04/04/19 11:15 White Blood Count 10.8 x10^3/uL (4.0-11.0) Red Blood Count 5.10 x10^6/uL (4.30-5.70) Hemoglobin 11.4 g/dL (13.0-17.5) L Hematocrit 37.1 % (39.0-53.0) L Mean Corpuscular Volume 73 fL (79-100) L Mean Corpuscular Hemoglobin 22 pg (25-35) L Mean Corpuscular Hemoglobin Concent 31 g/dL (31-37) Red Cell Distribution Width 25.7 % (11.5-14.5) H Platelet Count 317 x10^3/uL (140-400) Neutrophils (%) (Auto) 77 % (31-73) H Lymphocytes (%) (Auto) 11 % (24-48) L Monocytes (%) (Auto) 11 % (0-9) H Eosinophils (%) (Auto) 0 % (0-3) Basophils (%) (Auto) 0 % (0-3) Neutrophils # (Auto) 8.3 x10^3uL (1.8-7.7) H Lymphocytes # (Auto) 1.2 x10^3/uL (1.0-4.8) Monocytes # (Auto) 1.2 x10^3/uL (0.0-1.1) H Eosinophils # (Auto) 0.0 x10^3/uL (0.0-0.7) Basophils # (Auto) 0.0 x10^3/uL (0.0-0.2) Platelet Estimate Adequate (ADEQUATE) Giant Platelets Few Hypochromasia Mod Anisocytosis Marked Microcytosis Present Sodium Level 136 mmol/L (136-145) Potassium Level 4.5 mmol/L (3.5-5.1) Chloride Level 99 mmol/L (98-107) Carbon Dioxide Level 29 mmol/L (21-32) Anion Gap 8 (6-14) Blood Urea Nitrogen 14 mg/dL (8-26) Creatinine 1.2 mg/dL (0.7-1.3) Estimated GFR (Cockcroft-Gault) 71.0 BUN/Creatinine Ratio 12 (6-20) Glucose Level 132 mg/dL (70-99) H Calcium Level 8.9 mg/dL (8.5-10.1) Total Bilirubin 0.7 mg/dL (0.2-1.0) Aspartate Amino Transferase (AST) 13 U/L (15-37) L Alanine Aminotransferase (ALT) 12 U/L (16-63) L Alkaline Phosphatase 66 U/L (46-116) Creatine Kinase 70 U/L (39-308) Creatine Kinase MB (Mass) < 0.5 ng/mL (0.0-3.6) Creatine Kinase MB Relative Index % (0-4) Troponin I Quantitative < 0.017 ng/mL (0.000-0.055) AP-Wnz-R-Type Natriuretic Peptide 1575 pg/mL (0-449) H Total Protein 6.9 g/dL (6.4-8.2) Albumin 3.1 g/dL (3.4-5.0) L Albumin/Globulin Ratio 0.8 (1.0-1.7) L Lipase 50 U/L (73-393) L Prothrombin Time > 120.0 SEC (11.7-14.0) *H Prothrombin Time INR > 15.0 (0.8-1.1) *H PTT 120 SEC (24-38) H Laboratory Tests 04/04/19 09:30 Laboratory Tests 04/04/19 09:30 EKG EKG [] Radiology/Procedures Radiology/Procedures [][facility] [address] [place], [place] [id number] IMAGING REPORT Signed PATIENT: GENIA MCKNEZIE ACCOUNT: [id number] : 1940 LOCATION: ER AGE: 79 SEX: M EXAM STATUS: REG ER ORD. PHYSICIAN: HILDA CARBAJAL DO REASON: abdominal pain PROCEDURE: CT ABDOMEN PELVIS WO CONTRAST CT of the abdomen and pelvis without contrast, 04/04/2019: Abdominal pain Noncontrast scans were obtained as requested in this patient with a given history of an iodine allergy. There is mild streaky atelectasis and/or scarring in the lung bases. The unopacified liver is unremarkable. There is dense material in the gallbladder. No pericholecystic edema is seen. The pancreas is unremarkable. The spleen is of normal size. There are multiple bilateral renal cysts. One of these cysts in the lateral aspect the right kidney demonstrates minimal rim-like calcification. There is a small nonobstructing intrarenal calculus on the right. The renal collecting systems and ureters are not dilated. The prostate gland is enlarged measuring 5.3 cm in width. There is a radiopacity within the posterior aspect of the urinary bladder on the right in the absence of recent contrast injection this is presumably a calculus. A bifurcated aortoiliac stent graft is in place within a partially collapsed distal abdominal aortic aneurysm. The aneurysm sac has decreased in size since 06/06/2015 as best seen near the aortic bifurcation. 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 Adjacent dense opacities are again noted compatible with embolization coils. There are scattered colonic diverticula. No paracolonic inflammatory process is seen. The bowel loops are not dilated. No free air or free fluid is evident in the abdomen or pelvis. There is minimal nonspecific presacral edema. There are moderate scattered degenerative changes in the spine. Trabecular thickening in the proximal right femur suggests Paget's disease. There are also irregular lucencies in the sacrum which are unchanged. IMPRESSION: 1. Stented abdominal aortic aneurysm which has decreased in size since 06/06/2015. 2. 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 3. Colonic diverticulosis. 4. Material of increased density in the gallbladder which may represent vicarious excretion of IV contrast, if the patient has had a recent contrast exam, versus milk of calcium. 5. Prostatic enlargement. 6. Nonobstructing right intrarenal calculus. 7. Probable small bladder calculus 8. Bilateral renal cysts. 9. Minimal nonspecific presacral edema 10. 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 RS Compliance Statement: One or more of the following individualized dose reduction techniques were utilized for this examination: 1. Automated exposure control 2. Adjustment of the mA and/or kV according to patient size 3. Use of iterative reconstruction technique Electronically signed by: Reynaldo Drake MD (04/04/2019 12:23 PM) [facility] DICTATED and SIGNED BY: REYNALDO DRAKE MD DATE: 04/04/19 1222 Course & Med Decision Making Course & Med Decision Making Pertinent Labs and Imaging studies reviewed. (See chart for details) [] Dragon Disclaimer Dragon Disclaimer This electronic medical record was generated, in whole or in part, using a voice recognition dictation system. Departure Departure Impression: Primary Impression: Supratherapeutic INR Additional Impressions: Abdominal pain Back pain Disposition: 09 ADMITTED INPATIENT Admitting Physician: Angie Miles Condition: STABLE Referrals: Hazel MEADOWS MD (PCP) Problem Qualifiers HILDA CARBAJAL DO Apr 04, 2019 14:19
[2019-04-04 14:25] LABS: PROTHROMBIN TIME PATIENT > 120.0 SEC (11.7-14.0)
[2019-04-04] MEDS: MORPHINE SULFATE 4 MG/ML VIAL. IV PRN (17:21)
[2019-04-04 19:25] VITALS: BP 146/92
[2019-04-04] MEDS: ONDANSETRON PF 4 MG/2 ML VIAL. IV PRN (20:41)
[2019-04-04 23:25] VITALS: BP 105/75
[2019-04-05] MEDS ORDERED: RIVA20TA2 PO (02:43)
[2019-04-05] MEDS ORDERED: WARF-31 PO (02:43)
[2019-04-05] MEDS ORDERED: MAGN400T22 PO (02:43)
[2019-04-05] MEDS ORDERED: CLOP75TA PO (02:43)
[2019-04-05] MEDS: MORPHINE SULFATE 4 MG/ML VIAL. IV PRN (03:02)
[2019-04-05 03:25] VITALS: BP 108/66
[2019-04-05] MEDS: ONDANSETRON PF 4 MG/2 ML VIAL. IV PRN ×2 (03:52→12:24)
[2019-04-05 07:00] VITALS: BP 104/67
[2019-04-05] MEDS ORDERED: ALBUTEROL SULFATE 2.5 MG/3 ML NEBU. INH PRN ×2 (07:30→07:40)
--- NOTE | 2019-04-05 07:42 | PDOC ---
PROGRESS NOTES Subjective Subjective Patient reports emesis overnight with sipping Sprite. Objective Objective Vital Signs Date Time Temp Pulse Resp B/P (MAP) Pulse Ox O2 Delivery O2 Flow Rate FiO2 04/05/19 03:32 16 97 Room Air 04/05/19 03:25 98.2 71 108/66 (80) 98.2 Intake and Output 04/05/19 06:59 Intake Total 51 ml Balance 51 ml Intake Oral 0 ml IV Total 51 ml Physical Exam Abdomen: Normal bowel sounds, Soft, No tenderness Heart: Other (irregularly irregular) Extremities: No edema General: Alert (oriented to person and place but forgetful), No acute distress Lungs: Clear to auscultation Assessment Assessment Problems Medical Problems: (1) Abdominal pain Status: Acute (2) Back pain Status: Acute (3) Supratherapeutic INR Status: Acute Plan Plan of Care 1. Supratherapeutic INR - patient transitioned from Xarelto to Coumadin recently due to cost. No previous INR on present Coumadin dose until yesterday in ER. Lab from today pending. Will continue to hold Coumadin and follow lab. Will need anticoagulation due to chronic afib and especially because of recent PE's. 2. chronic afib - stable, continue home meds. 3. achalasia - this is chronic for him. Had EGD during admission last month. GI recommended diet with moist foods and plenty of water with meals. Patient aware of these recommendations. States he has not kept down any food for a week. CT and ultrasound at admission without acute findings. Weight similar to what was on his chart from last admission. 4. chronic back pain - stable, continue his usual medication for this. Comment Review of Relevant I have reviewed the following items mckayla (where applicable) has been applied. Labs Laboratory Tests Test 04/04/19 09:30 04/04/19 11:15 White Blood Count 10.8 x10^3/uL (4.0-11.0) Red Blood Count 5.10 x10^6/uL (4.30-5.70) Hemoglobin 11.4 g/dL (13.0-17.5) Hematocrit 37.1 % (39.0-53.0) Mean Corpuscular Volume 73 fL (79-100) Mean Corpuscular Hemoglobin 22 pg (25-35) Mean Corpuscular Hemoglobin Concent 31 g/dL (31-37) Red Cell Distribution Width 25.7 % (11.5-14.5) Platelet Count 317 x10^3/uL (140-400) Neutrophils (%) (Auto) 77 % (31-73) Lymphocytes (%) (Auto) 11 % (24-48) Monocytes (%) (Auto) 11 % (0-9) Eosinophils (%) (Auto) 0 % (0-3) Basophils (%) (Auto) 0 % (0-3) Neutrophils # (Auto) 8.3 x10^3uL (1.8-7.7) Lymphocytes # (Auto) 1.2 x10^3/uL (1.0-4.8) Monocytes # (Auto) 1.2 x10^3/uL (0.0-1.1) Eosinophils # (Auto) 0.0 x10^3/uL (0.0-0.7) Basophils # (Auto) 0.0 x10^3/uL (0.0-0.2) Platelet Estimate Adequate (ADEQUATE) Giant Platelets Few Hypochromasia Mod Anisocytosis Marked Microcytosis Present Sodium Level 136 mmol/L (136-145) Potassium Level 4.5 mmol/L (3.5-5.1) Chloride Level 99 mmol/L (98-107) Carbon Dioxide Level 29 mmol/L (21-32) Anion Gap 8 (6-14) Blood Urea Nitrogen 14 mg/dL (8-26) Creatinine 1.2 mg/dL (0.7-1.3) Estimated GFR (Cockcroft-Gault) 71.0 BUN/Creatinine Ratio 12 (6-20) Glucose Level 132 mg/dL (70-99) Calcium Level 8.9 mg/dL (8.5-10.1) Total Bilirubin 0.7 mg/dL (0.2-1.0) Aspartate Amino Transf (AST/SGOT) 13 U/L (15-37) Alanine Aminotransferase (ALT/SGPT) 12 U/L (16-63) Alkaline Phosphatase 66 U/L (46-116) Creatine Kinase 70 U/L (39-308) Creatine Kinase MB (Mass) < 0.5 ng/mL (0.0-3.6) Creatine Kinase MB Relative Index % (0-4) Troponin I Quantitative < 0.017 ng/mL (0.000-0.055) HL-Icg-I-Type Natriuretic Peptide 1575 pg/mL (0-449) Total Protein 6.9 g/dL (6.4-8.2) Albumin 3.1 g/dL (3.4-5.0) Albumin/Globulin Ratio 0.8 (1.0-1.7) Lipase 50 U/L (73-393) Prothrombin Time > 120.0 SEC (11.7-14.0) Prothromb Time International Ratio > 15.0 (0.8-1.1) Activated Partial Thromboplast Time 120 SEC (24-38) Laboratory Tests Test 04/04/19 09:30 04/04/19 11:15 White Blood Count 10.8 x10^3/uL (4.0-11.0) Red Blood Count 5.10 x10^6/uL (4.30-5.70) Hemoglobin 11.4 g/dL (13.0-17.5) Hematocrit 37.1 % (39.0-53.0) Mean Corpuscular Volume 73 fL (79-100) Mean Corpuscular Hemoglobin 22 pg (25-35) Mean Corpuscular Hemoglobin Concent 31 g/dL (31-37) Red Cell Distribution Width 25.7 % (11.5-14.5) Platelet Count 317 x10^3/uL (140-400) Neutrophils (%) (Auto) 77 % (31-73) Lymphocytes (%) (Auto) 11 % (24-48) Monocytes (%) (Auto) 11 % (0-9) Eosinophils (%) (Auto) 0 % (0-3) Basophils (%) (Auto) 0 % (0-3) Neutrophils # (Auto) 8.3 x10^3uL (1.8-7.7) Lymphocytes # (Auto) 1.2 x10^3/uL (1.0-4.8) Monocytes # (Auto) 1.2 x10^3/uL (0.0-1.1) Eosinophils # (Auto) 0.0 x10^3/uL (0.0-0.7) Basophils # (Auto) 0.0 x10^3/uL (0.0-0.2) Platelet Estimate Adequate (ADEQUATE) Giant Platelets Few Hypochromasia Mod Anisocytosis Marked Microcytosis Present Sodium Level 136 mmol/L (136-145) Potassium Level 4.5 mmol/L (3.5-5.1) Chloride Level 99 mmol/L (98-107) Carbon Dioxide Level 29 mmol/L (21-32) Anion Gap 8 (6-14) Blood Urea Nitrogen 14 mg/dL (8-26) Creatinine 1.2 mg/dL (0.7-1.3) Estimated GFR (Cockcroft-Gault) 71.0 BUN/Creatinine Ratio 12 (6-20) Glucose Level 132 mg/dL (70-99) Calcium Level 8.9 mg/dL (8.5-10.1) Total Bilirubin 0.7 mg/dL (0.2-1.0) Aspartate Amino Transf (AST/SGOT) 13 U/L (15-37) Alanine Aminotransferase (ALT/SGPT) 12 U/L (16-63) Alkaline Phosphatase 66 U/L (46-116) Creatine Kinase 70 U/L (39-308) Creatine Kinase MB (Mass) < 0.5 ng/mL (0.0-3.6) Creatine Kinase MB Relative Index % (0-4) Troponin I Quantitative < 0.017 ng/mL (0.000-0.055) GZ-Rxt-V-Type Natriuretic Peptide 1575 pg/mL (0-449) Total Protein 6.9 g/dL (6.4-8.2) Albumin 3.1 g/dL (3.4-5.0) Albumin/Globulin Ratio 0.8 (1.0-1.7) Lipase 50 U/L (73-393) Prothrombin Time > 120.0 SEC (11.7-14.0) Prothromb Time International Ratio > 15.0 (0.8-1.1) Activated Partial Thromboplast Time 120 SEC (24-38) Medications Current Medications Morphine Sulfate (Morphine Sulfate) 4 mg 1X ONCE IV Last administered on 04/04/19at 11:27; Start 04/04/19 at 11:30; Stop 04/04/19 at 11:31; Status DC Ketorolac Tromethamine (Toradol 30mg Vial) 30 mg 1X ONCE IV Last administered on 04/04/19at 13:23; Start 04/04/19 at 13:30; Stop 04/04/19 at 13:31; Status DC Ondansetron HCl (Zofran) 8 mg 1X ONCE IV Last administered on 04/04/19at 13:24; Start 04/04/19 at 13:30; Stop 04/04/19 at 13:31; Status DC Phytonadione 10 mg/Dextrose 51 ml @ 102 mls/hr 1X ONCE IV Last administered on 04/04/19at 13:53; Start 04/04/19 at 14:00; Stop 04/04/19 at 14:29; Status DC Ondansetron HCl (Zofran) 4 mg PRN Q8HRS PRN IV NAUSEA/VOMITING Last administered on 04/05/19at 03:52; Start 04/04/19 at 14:15; Stop 04/05/19 at 14:14 Morphine Sulfate (Morphine Sulfate) 4 mg PRN Q6HRS PRN IV PAIN Last administered on 04/05/19at 03:02; Start 04/04/19 at 14:15; Stop 04/05/19 at 14:14 Albuterol Sulfate (Ventolin Neb Soln) 3 mg PRN Q6HRS PRN INH SHORTNESS OF BREATH; Start 04/05/19 at 07:30; Status UNV Amiodarone HCl (Cordarone) 200 mg DAILY PO ; Start 04/05/19 at 09:00; Status UNV Aspirin (Children'S Aspirin) 81 mg DAILY PO ; Start 04/05/19 at 09:00; Status UNV Digoxin (Lanoxin) 125 mcg DAILY PO ; Start 04/05/19 at 09:00; Status UNV Albuterol/ Ipratropium (Duoneb) 3 ml RTQID NEB ; Start 04/05/19 at 08:00; Status UNV Montelukast Sodium (Singulair) 10 mg QHS PO ; Start 04/05/19 at 21:00; Status UNV Trazodone HCl (Desyrel) 100 mg QHS PO ; Start 04/05/19 at 21:00; Status UNV Non-Formulary Medication (Fluticasone/ Salmeterol (Advair 250-50 Diskus)) 1 puff BID IH ; Start 04/05/19 at 09:00; Status UNV Non-Formulary Medication (Iron Polysaccharides Complex (Poly-Iron)) 150 mg DAILY PO ; Start 04/05/19 at 09:00; Status UNV Non-Formulary Medication (Magnesium Oxide (Mag-Oxide)) 400 mg DAILY PO ; Start 04/05/19 at 09:00; Status UNV Non-Formulary Medication (Midodrine Hcl ) 2.5 mg [id number] PO ; Start 04/05/19 at 13:00; Status UNV Non-Formulary Medication (Oxycodone Hcl ) 20 mg TID PRN PRN PO PAIN; Start 04/05/19 at 07:30; Status UNV Non-Formulary Medication (Simvastatin ) 1 tab QHS PO ; Start 04/05/19 at 21:00; Status UNV Non-Formulary Medication (Sotalol Hcl (Betapace)) 40 mg BID PO ; Start 04/05/19 at 09:00; Status UNV Non-Formulary Medication ([Pantoprazole] ) 40 mg DAILYAC PO ; Start 04/05/19 at 07:30; Status UNV Active Scripts Active Aspirin 81 Mg Tab.chew 1 Tab PO DAILY Montelukast Sodium Tablet (Montelukast Sodium) 10 Mg Tablet 10 Mg PO QHS 30 Days Advair 250-50 Diskus (Fluticasone/Salmeterol) 1 Each Disk.w.dev 1 Puff IH BID Amiodarone Hcl 200 Mg Tablet 200 Mg PO DAILY 30 Days Poly-Iron (Iron Polysaccharides Complex) 150 Mg Capsule 150 Mg PO DAILY 30 Days Midodrine Hcl 2.5 Mg Tablet 2.5 Mg PO [id number] 30 Days Betapace (Sotalol Hcl) 80 Mg Tablet 40 Mg PO BID 30 Days Duoneb 0.5-3(2.5) Mg/3 Ml (Albuterol/Ipratropium) 3 Ml Ampul.neb 3 Ml NEB RTQID 30 Days [Pantoprazole] 40 MG Tablet.dr 40 Mg PO DAILYAC 30 Days Proair Hfa Inhaler (Albuterol Sulfate) 8.5 Gm Hfa.aer.ad 1 Puff INH PRN Q6HRS PRN Reported Mag-Oxide (Magnesium Oxide) 400 Mg Tablet 400 Mg PO DAILY Warfarin Sodium 5 Mg Tablet 10 Mg PO DAILY Trazodone Hcl 100 Mg Tablet 100 Mg PO QHS Oxycodone Hcl 20 Mg Tablet 20 Mg PO TID PRN PRN Simvastatin 20 Mg Tablet 1 Tab PO QHS Digoxin 125 Mcg Tablet 125 Mcg PO DAILY Vitals/I & O Vital Sign - Last 24 Hours 04/04/19 04/04/19 04/04/19 04/04/19 09:15 11:00 11:27 11:30 Temp 98.3 98.3 Pulse 70 68 68 Resp 18 18 18 18 B/P (MAP) 118/77 (91) 149/89 (109) 162/90 (114) Pulse Ox 98 97 97 O2 Delivery Room Air Room Air Room Air 04/04/19 04/04/19 04/04/19 04/04/19 12:15 13:15 13:45 14:10 Pulse 68 68 68 68 Resp 18 18 18 18 B/P (MAP) 150/94 (112) 160/93 (115) 153/92 (112) 154/94 (114) Pulse Ox 97 97 97 95 O2 Delivery Room Air Room Air Room Air Room Air 04/04/19 04/04/19 04/04/19 04/04/19 14:40 15:10 15:40 16:10 Pulse 68 72 68 68 Resp 12 12 13 14 B/P (MAP) 152/92 (112) 153/95 (114) 153/91 (111) 152/96 (114) Pulse Ox 96 97 95 96 O2 Delivery Room Air Room Air Room Air Room Air 04/04/19 04/04/19 04/04/19 04/04/19 16:40 17:10 17:40 18:10 Pulse 68 68 68 68 Resp 13 14 12 11 B/P (MAP) 160/90 (113) 146/93 (110) 145/88 (107) 136/87 (103) Pulse Ox 95 96 95 96 O2 Delivery Room Air Room Air Room Air Room Air 04/04/19 04/04/19 04/04/19 04/05/19 19:25 21:55 23:25 03:02 Temp 97.4 98.3 97.4 98.3 Pulse 70 73 Resp 18 18 17 B/P (MAP) 146/92 (110) 105/75 (85) Pulse Ox 96 97 97 O2 Delivery Room Air Room Air Room Air Room Air 04/05/19 04/05/19 03:25 03:32 Temp 98.2 98.2 Pulse 71 Resp 18 16 B/P (MAP) 108/66 (80) Pulse Ox 97 97 O2 Delivery Room Air Room Air Intake and Output 04/04/19 04/04/19 04/05/19 14:59 22:59 06:59 Intake Total 51 ml 0 ml Balance 51 ml 0 ml ANNE GAMEZ MD Apr 05, 2019 07:42
[2019-04-05] MEDS ORDERED: PANTOPRAZOLE 40 MG TABLET.DR. PO SCH (07:45)
[2019-04-05] MEDS ORDERED: oxyCODONE IR 5 MG TABLET PO PRN (08:00)
[2019-04-05 08:15] LABS: PROTHROMBIN TIME PATIENT 22.4 SEC (11.7-14.0)
[2019-04-05] MEDS: AMIODARONE HCL 200 MG TABLET. PO SCH (08:20)
[2019-04-05] MEDS: MIDODRINE 2.5 MG TABLET PO SCH ×3 (08:20→17:52)
[2019-04-05] MEDS: ASPIRIN CHEWABLE 81 MG TABLET. PO SCH (08:21)
--- NOTE | 2019-04-05 08:35 | HP ---
ADMIT DATE: 04/04/2019 CHIEF COMPLAINT: Abdominal pain with nausea and vomiting. HISTORY OF PRESENT ILLNESS: The patient is a 79-year-old male who was recently admitted to [place] for treatment of a pulmonary embolism. During that admission, he was also diagnosed with achalasia, which was felt to be chronic for him. In the Emergency Room last evening, he reported he had not been able to keep down any food for a week, but had been able to tolerate some water. An abdominal ultrasound and CT of the abdomen and pelvis were without acute findings. The patient was started on Coumadin earlier this month and INR done in the Emergency Room showed the INR to be greater than 15. The patient was given one dose of vitamin K and admitted for further treatment. PAST MEDICAL HISTORY: Chronic atrial fibrillation, pulmonary emboli 03/06, congestive heart failure and ischemic cardiomyopathy, coronary artery disease, hypertension, hyperlipidemia, chronic low back pain, COPD, orthostatic hypotension, BPH and lower extremity neuropathy. PAST SURGICAL HISTORY: Lumbar spinal fusion in 2004, hiatal hernia repair, cardiac catheterization 12/30, previous knee surgery, pacemaker and AICD placement, coronary artery bypass graft, cataract surgery and abdominal aortic aneurysm repair in 2014. ALLERGIES: THE PATIENT IS ALLERGIC TO IODINE, ADHESIVE TAPE AND LATEX. HOME MEDICATIONS: This list may not be accurate, albuterol p.r.n., amiodarone 200 mg daily, aspirin 81 mg daily, digoxin 125 mcg daily, Advair 250/50 one puff b.i.d., iron daily, magnesium oxide 400 mg daily, midodrine 2.5 mg t.i.d., Singulair 10 mg daily, oxycodone 20 mg t.i.d. p.r.n. back pain, simvastatin 20 mg daily, sotalol 40 mg b.i.d., trazodone 100 mg at bedtime, Coumadin 5 mg 2 tablets daily and pantoprazole 40 mg daily. The patient had been on Xarelto prior to the Coumadin, but it was discontinued due to cost and he was transitioned to the Coumadin. FAMILY HISTORY: Noncontributory. SOCIAL HISTORY: The patient is . He is retired. He smokes cigarettes about one half pack per day. He does not drink alcohol to excess. REVIEW OF SYSTEMS: The patient denies fever or chills. He denies cough or shortness of breath. He denies recent chest pain or palpitations. He has chronic intermittent abdominal pain with nausea and vomiting. He denies lower extremity edema. He states he has been taking his medications daily, but is unsure of the name of some of them. PHYSICAL EXAMINATION: GENERAL: The patient is alert and oriented to person and place, although somewhat forgetful, resting comfortably in bed in no acute distress. HEENT: PERRL, EOMI, sclerae clear. Oropharynx: Mucous membranes are moist. NECK: Supple, without lymphadenopathy. CHEST: Clear to auscultation. CARDIOVASCULAR: Irregularly irregular. ABDOMEN: Soft. Mild diffuse tenderness to palpation without guarding or rebound. Normoactive bowel sounds are present. EXTREMITIES: Bilateral lower extremities are without edema. ASSESSMENT AND PLAN: 1. Supratherapeutic INR. The patient transitioned recently from Xarelto to Coumadin due to cost. He was apparently started on Coumadin 10 mg daily. No previous INR was done. Lab for this was drawn in our office last week, but the sample was apparently inadequate, so no result was reported. The patient's Coumadin is obviously on hold. Lab from this morning is pending. We will continue to hold Coumadin and follow his lab resuming it at a much lower dose when indicated. He will need chronic anticoagulation due to his chronic atrial fibrillation and especially due to his recent pulmonary emboli. 2. Chronic atrial fibrillation. This appears stable. Continue home medications. 3. Achalasia. This is unfortunately chronic for him. He had an EGD done during his admission last month, which showed findings of achalasia. GI recommended a diet with moist foods and plenty of water with meals. The patient is aware of these recommendations. He states he has not kept down any food for a week. CT of the abdomen and ultrasound on admission were without acute findings. His weight is similar to what was on his chart from his last admission. We will continue to offer a diet per GI recommendations and follow his response to this. 4. Chronic back pain. This is stable, continue his usual medication. 5. Chronic obstructive pulmonary disease. This appears stable. Continue nebulized treatments. ANNE GAMEZ MD DR: Yash JOB#: [id number] / [id number] MARIVEL
[2019-04-05] MEDS: SOTALOL 80 MG TABLET. PO SCH ×2 (09:00→20:15)
[2019-04-05] MEDS ORDERED: NON FORMULARY ITEM (Fluticasone/Salmeterol (Advair 250-50 Diskus) 1 PUFF) IH SCH (09:00)
[2019-04-05 11:00] VITALS: BP 98/62
[2019-04-05] MEDS: IPRATRPIUM/ALBUTEROL 0.5/2.5MG 3 ML NEBU. NEB SCH ×4 (12:00→21:26)
[2019-04-05] MEDS: BUDESONIDE 0.5 MG/2 ML NEBU. NEB SCH ×2 (12:15→21:26)
[2019-04-05] MEDS: MAGNESIUM OXIDE 400 MG TABLET PO SCH (12:25)
[2019-04-05] MEDS: IRON POLYSACCHARIDE COMPLEX 150 MG CAPSULE PO SCH (12:25)
[2019-04-05] MEDS: DIGOXIN 125 MCG TABLET. PO SCH (12:27)
[2019-04-05 15:00] VITALS: BP 89/65
[2019-04-05] MEDS ORDERED: WARFARIN 5 MG TABLET. PO SCH (16:00)
--- NOTE | 2019-04-05 17:18 | PDOC2 ---
GI CONSULT Reason For Consult: N/v HPI: HPI: 79 y/o male who we have seen in the past for dyspahgia and abdominal pain. To ER last night w/ n/v for a week, found w/ INR >15 (on Coumadin for PE - INR now 2 after vit K). He reports no difficulty swallowing but says "nothing will stay down." Also has abdominal "soreness" - says he first noticed when someone examined him in the ER. Recently constipated, then passed a large hard ball of stool a few days ago. Denies bleeding. EGD 03/04/19: probable achalasia s/p myotomy and fundoplication (no dilation - not a tight wrap). Colonoscopy 03/2015: hyperplastic rectal polyp, diverticulosis, hemorrhoids. H/o adenomatous polyp in 2009. No GB, liver, or pancreas history. 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, AICD/repair, back surgeries, cardiac cath, CABG FH: Family History: Cancer Social History: ALCOHOL: none Drugs: None ROS: GEN: Denies fevers, chills, sweats HEENT: Denies blurred vision, sore throat CV: Denies chest pain RESP: Denies shortness of air, cough GI: Per HPI : Denies hematuria, dysuria ENDO: Denies weight changes NEURO: Denies confusion, dizziness MSK: +weakness SKIN: Denies jaundice, pruritus Vitals: Vitals: Vital Signs Date Time Temp Pulse Resp B/P (MAP) Pulse Ox O2 Delivery O2 Flow Rate FiO2 04/05/19 16:52 96 Room Air 04/05/19 15:00 98.6 71 16 89/65 (73) 98.6 Labs: Labs: Laboratory Tests Test 04/05/19 06:35 Prothrombin Time 22.4 SEC (11.7-14.0) Prothromb Time International Ratio 2.0 (0.8-1.1) Allergies: Coded Allergies: Iodinated Contrast- Oral and IV Dye (Verified Allergy, Severe, anaphalaxis, short of air, 03/04/19) adhesive (Verified Allergy, Severe, PAINFUL SKIN IRRITATION , 03/04/19) latex (Verified Allergy, Intermediate, Hives, 03/04/19) Medications: Current Medications Medications (Trade) Dose Ordered Sig/[place] Route PRN Reason Start Time Stop Time Status Last Admin Dose Admin Amiodarone HCl (Cordarone) 200 mg DAILY PO 04/05/19 09:00 04/05/19 08:20 Aspirin (Children'S Aspirin) 81 mg DAILY PO 04/05/19 09:00 04/05/19 08:21 Digoxin (Lanoxin) 125 mcg DAILY PO 04/05/19 09:00 04/05/19 12:27 Albuterol/ Ipratropium (Duoneb) 3 ml RTQID NEB 04/05/19 08:00 04/05/19 16:51 Polysaccharide Iron Complex (Niferex 150) 150 mg DAILY PO 04/05/19 09:00 04/05/19 12:25 Magnesium Oxide (Magnesium Oxide) 400 mg DAILY PO 04/05/19 09:00 04/05/19 12:25 Midodrine (Proamatine) 2.5 mg [id number] PO 04/05/19 08:00 04/05/19 12:25 Pantoprazole Sodium (Protonix) 40 mg DAILYAC PO 04/05/19 07:45 04/05/19 08:20 Budesonide (Pulmicort) 0.5 mg RTBID NEB 04/05/19 08:00 04/05/19 12:15 Warfarin Sodium (Coumadin Per Physician) 1 each PRN DAILY PRN MC SEE COMMENTS 04/05/19 14:30 04/05/19 14:29 Imaging: Imaging: AAS IMPRESSION: 1. Aortoiliac stent graft in place. 2. No acute abdominal abnormality is detected. 3. Emphysema. CT A/P IMPRESSION: 1. Stented abdominal aortic aneurysm which has decreased in size since 06/06/2015. 2. 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 3. Colonic diverticulosis. 4. Material of increased density in the gallbladder which may represent vicarious excretion of IV contrast, if the patient has had a recent contrast exam, versus milk of calcium. 5. Prostatic enlargement. 6. Nonobstructing right intrarenal calculus. 7. Probable small bladder calculus 8. Bilateral renal cysts. 9. Minimal nonspecific presacral edema 10. 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 PE: GEN: NAD HEENT: Atraumatic, PERRL LUNGS: CTAB HEART: RRR ABD: NABS, S/ND, periumbilical to LLQ - seems muscular EXTREMITY: No edema SKIN: No rashes, no jaundice NEURO/PSYCH: A & O �3 A/P: A/P: Vomiting, abd pain Coumadin coagulopathy - improved Microcytic anemia H/o achalasia s/p myotomy and fundoplication - EGD last month CRC screen, h/o adenomatous polyps - UTD Diverticulosis, hemorrhoids H/o constipation -- ?still vomiting, no IVF - defer to primary ?abd pain from retching Agree w/ PPI, will give IV for now. Other per Dr. Banks. HONEY AUGUSTE Apr 05, 2019 17:18
[2019-04-05] MEDS: POLYETHYLENE GLYCOL 3350 17 GM PACKET. PO SCH (17:52)
[2019-04-05 19:25] VITALS: BP 110/71
[2019-04-05] MEDS: FAMOTIDINE 20 MG/2 ML VIAL IVP SCH (20:16)
[2019-04-05] MEDS ORDERED: SIMVASTATIN 20 MG TABLET PO SCH (21:00)
[2019-04-05] MEDS ORDERED: traZODone 100 MG TABLET. PO SCH (21:00)
[2019-04-05] MEDS ORDERED: MONTELUKAST SODIUM 10 MG TABLET. PO SCH (21:00)
[2019-04-05 23:54] VITALS: BP 109/55
[2019-04-06 03:46] VITALS: BP 105/69
[2019-04-06 04:59] LABS: PROTHROMBIN TIME PATIENT 41.6 SEC (11.7-14.0)
[2019-04-06] MEDS: MIDODRINE 2.5 MG TABLET PO SCH ×2 (05:56→13:13)
[2019-04-06 07:00] VITALS: BP 107/62
[2019-04-06] MEDS: IPRATRPIUM/ALBUTEROL 0.5/2.5MG 3 ML NEBU. NEB SCH ×2 (07:31→11:59)
[2019-04-06] MEDS: BUDESONIDE 0.5 MG/2 ML NEBU. NEB SCH (07:31)
--- NOTE | 2019-04-06 08:23 | PDOC ---
PROGRESS NOTES Subjective Subjective Patient reports abdominal pain has resolved. Ate turkey sandwich and cuca crackers last night without problems. Feels ready to go home today. Objective Objective Vital Signs Date Time Temp Pulse Resp B/P (MAP) Pulse Ox O2 Delivery O2 Flow Rate FiO2 04/06/19 07:32 97 Room Air 04/06/19 03:46 97.8 70 16 105/69 (81) 97.8 Intake and Output 04/06/19 06:59 Intake Total 640 ml Output Total 850 ml Balance -210 ml Intake Oral 640 ml Output Urine Total 725 ml Emesis 125 ml # Voids 1 Physical Exam Abdomen: Normal bowel sounds, Soft, No tenderness Heart: Regular rate Extremities: No edema General: Alert, Oriented X3, No acute distress Lungs: Clear to auscultation Assessment Assessment Problems Medical Problems: (1) Abdominal pain Status: Acute (2) Back pain Status: Acute (3) Supratherapeutic INR Status: Acute Plan Plan of Care 1. Supratherapeutic anticoagulation - much improved since admission. Got Coumadin last night and INR now 4.3 Will discharge home today, advised to hold Coumadin and have INR checked in our office on Thursday. 2. achalasia - this will be chronic for him. Reported he wasn't eating much at home but doing better here. Appreciate GI input. Had EGD last month, no further evaluation presently indicated. Continue soft diet. 3. Chronic afib with CHF - stable, continue his usual medications. 4. Recent PE - resume Coumadin when INR lower. 5. COPD - stable. Comment Review of Relevant I have reviewed the following items mckayla (where applicable) has been applied. Labs Laboratory Tests Test 04/04/19 09:30 04/04/19 11:15 04/05/19 06:35 04/06/19 03:45 White Blood Count 10.8 x10^3/uL (4.0-11.0) Red Blood Count 5.10 x10^6/uL (4.30-5.70) Hemoglobin 11.4 g/dL (13.0-17.5) Hematocrit 37.1 % (39.0-53.0) Mean Corpuscular Volume 73 fL (79-100) Mean Corpuscular Hemoglobin 22 pg (25-35) Mean Corpuscular Hemoglobin Concent 31 g/dL (31-37) Red Cell Distribution Width 25.7 % (11.5-14.5) Platelet Count 317 x10^3/uL (140-400) Neutrophils (%) (Auto) 77 % (31-73) Lymphocytes (%) (Auto) 11 % (24-48) Monocytes (%) (Auto) 11 % (0-9) Eosinophils (%) (Auto) 0 % (0-3) Basophils (%) (Auto) 0 % (0-3) Neutrophils # (Auto) 8.3 x10^3uL (1.8-7.7) Lymphocytes # (Auto) 1.2 x10^3/uL (1.0-4.8) Monocytes # (Auto) 1.2 x10^3/uL (0.0-1.1) Eosinophils # (Auto) 0.0 x10^3/uL (0.0-0.7) Basophils # (Auto) 0.0 x10^3/uL (0.0-0.2) Platelet Estimate Adequate (ADEQUATE) Giant Platelets Few Hypochromasia Mod Anisocytosis Marked Microcytosis Present Sodium Level 136 mmol/L (136-145) Potassium Level 4.5 mmol/L (3.5-5.1) Chloride Level 99 mmol/L (98-107) Carbon Dioxide Level 29 mmol/L (21-32) Anion Gap 8 (6-14) Blood Urea Nitrogen 14 mg/dL (8-26) Creatinine 1.2 mg/dL (0.7-1.3) Estimated GFR (Cockcroft-Gault) 71.0 BUN/Creatinine Ratio 12 (6-20) Glucose Level 132 mg/dL (70-99) Calcium Level 8.9 mg/dL (8.5-10.1) Total Bilirubin 0.7 mg/dL (0.2-1.0) Aspartate Amino Transf (AST/SGOT) 13 U/L (15-37) Alanine Aminotransferase (ALT/SGPT) 12 U/L (16-63) Alkaline Phosphatase 66 U/L (46-116) Creatine Kinase 70 U/L (39-308) Creatine Kinase MB (Mass) < 0.5 ng/mL (0.0-3.6) Creatine Kinase MB Relative Index % (0-4) Troponin I Quantitative < 0.017 ng/mL (0.000-0.055) RY-Fkc-L-Type Natriuretic Peptide 1575 pg/mL (0-449) Total Protein 6.9 g/dL (6.4-8.2) Albumin 3.1 g/dL (3.4-5.0) Albumin/Globulin Ratio 0.8 (1.0-1.7) Lipase 50 U/L (73-393) Prothrombin Time > 120.0 SEC (11.7-14.0) 22.4 SEC (11.7-14.0) 41.6 SEC (11.7-14.0) Prothromb Time International Ratio > 15.0 (0.8-1.1) 2.0 (0.8-1.1) 4.3 (0.8-1.1) Activated Partial Thromboplast Time 120 SEC (24-38) Laboratory Tests Test 04/06/19 03:45 Prothrombin Time 41.6 SEC (11.7-14.0) Prothromb Time International Ratio 4.3 (0.8-1.1) Medications Current Medications Morphine Sulfate (Morphine Sulfate) 4 mg 1X ONCE IV Last administered on 04/04/19at 11:27; Start 04/04/19 at 11:30; Stop 04/04/19 at 11:31; Status DC Ketorolac Tromethamine (Toradol 30mg Vial) 30 mg 1X ONCE IV Last administered on 04/04/19at 13:23; Start 04/04/19 at 13:30; Stop 04/04/19 at 13:31; Status DC Ondansetron HCl (Zofran) 8 mg 1X ONCE IV Last administered on 04/04/19at 13:24; Start 04/04/19 at 13:30; Stop 04/04/19 at 13:31; Status DC Phytonadione 10 mg/Dextrose 51 ml @ 102 mls/hr 1X ONCE IV Last administered on 04/04/19at 13:53; Start 04/04/19 at 14:00; Stop 04/04/19 at 14:29; Status DC Ondansetron HCl (Zofran) 4 mg PRN Q8HRS PRN IV NAUSEA/VOMITING Last administered on 04/05/19at 12:24; Start 04/04/19 at 14:15; Stop 04/05/19 at 14:14; Status DC Morphine Sulfate (Morphine Sulfate) 4 mg PRN Q6HRS PRN IV PAIN Last administe red on 04/05/19 03:02; Start 04/04/19 at 14:15; Stop 04/05/19 at 14:14; Status DC Albuterol Sulfate (Ventolin Neb Soln) 3 mg PRN Q6HRS PRN INH SHORTNESS OF BREATH; Start 04/05/19 at 07:30; Stop 04/05/19 at 07:40; Status DC Amiodarone HCl (Cordarone) 200 mg DAILY PO Last administered on 04/05/19 08:20; Start 04/05/19 at 09:00 Aspirin (Children'S Aspirin) 81 mg DAILY PO Last administered on 04/05/19 08:21; Start 04/05/19 at 09:00 Digoxin (Lanoxin) 125 mcg DAILY PO Last administered on 04/05/19 12:27; Start 04/05/19 at 09:00 Albuterol/ Ipratropium (Duoneb) 3 ml RTQID NEB Last administered on 04/06/19 07:31; Start 04/05/19 at 08:00 Montelukast Sodium (Singulair) 10 mg QHS PO Last administered on 04/05/19 20:16; Start 04/05/19 at 21:00 Trazodone HCl (Desyrel) 100 mg QHS PO Last administered on 04/05/19 20:16; Start 04/05/19 at 21:00 Non-Formulary Medication (Fluticasone/ Salmeterol (Advair 250-50 Diskus)) 1 puff BID IH ; Start 04/05/19 at 09:00; Status UNV Polysaccharide Iron Complex (Niferex 150) 150 mg DAILY PO Last administered on 04/05/19 12:25; Start 04/05/19 at 09:00 Magnesium Oxide (Magnesium Oxide) 400 mg DAILY PO Last administered on 04/05/19 12:25; Start 04/05/19 at 09:00 Midodrine (Proamatine) 2.5 mg [id number] PO Last administered on 04/05/19 17:52; Start 04/05/19 at 08:00 Oxycodone HCl (Roxicodone) 20 mg PRN TID PRN PO SEVERE PAIN Last administered on 04/05/19 20:17; Start 04/05/19 at 08:00 Simvastatin (Zocor) 20 mg HS PO Last administered on 04/05/19at 20:16; Start 04/05/19 at 21:00 Sotalol HCl (Betapace) 40 mg BID PO ; Start 04/05/19 at 09:00 Pantoprazole Sodium (Protonix) 40 mg DAILYAC PO Last administered on 04/05/19 08:20; Start 04/05/19 at 07:45; Stop 04/05/19 at 17:20; Status DC Albuterol Sulfate (Ventolin Neb Soln) 2.5 mg PRN Q6HRS PRN INH SHORTNESS OF BREATH; Start 04/05/19 at 07:40 Budesonide (Pulmicort) 0.5 mg RTBID NEB Last administered on 04/06/19at 07:31; Start 04/05/19 at 08:00 Warfarin Sodium (Coumadin) 5 mg DAILY16 PO Last administered on 04/05/19at 17:52; Start 04/05/19 at 16:00 Warfarin Sodium (Coumadin Per Physician) 1 each PRN DAILY PRN MC SEE COMMENTS Last administered on 04/05/19 14:29; Start 04/05/19 at 14:30 Famotidine (Pepcid Vial) 20 mg BID IVP Last administered on 04/05/19at 20:16; Start 04/05/19 at 21:00 Polyethylene Glycol (miraLAX PACKET) 17 gm DAILY PO ; Start 04/05/19 at 18:00 Active Scripts Active Aspirin 81 Mg Tab.chew 1 Tab PO DAILY Montelukast Sodium Tablet (Montelukast Sodium) 10 Mg Tablet 10 Mg PO QHS 30 Days Advair 250-50 Diskus (Fluticasone/Salmeterol) 1 Each Disk.w.dev 1 Puff IH BID Amiodarone Hcl 200 Mg Tablet 200 Mg PO DAILY 30 Days Poly-Iron (Iron Polysaccharides Complex) 150 Mg Capsule 150 Mg PO DAILY 30 Days Midodrine Hcl 2.5 Mg Tablet 2.5 Mg PO [id number] 30 Days Betapace (Sotalol Hcl) 80 Mg Tablet 40 Mg PO BID 30 Days Duoneb 0.5-3(2.5) Mg/3 Ml (Albuterol/Ipratropium) 3 Ml Ampul.neb 3 Ml NEB RTQID 30 Days [Pantoprazole] 40 MG Tablet.dr 40 Mg PO DAILYAC 30 Days Proair Hfa Inhaler (Albuterol Sulfate) 8.5 Gm Hfa.aer.ad 1 Puff INH PRN Q6HRS PRN Reported Mag-Oxide (Magnesium Oxide) 400 Mg Tablet 400 Mg PO DAILY Warfarin Sodium 5 Mg Tablet 10 Mg PO DAILY Trazodone Hcl 100 Mg Tablet 100 Mg PO QHS Oxycodone Hcl 20 Mg Tablet 20 Mg PO TID PRN PRN Simvastatin 20 Mg Tablet 1 Tab PO QHS Digoxin 125 Mcg Tablet 125 Mcg PO DAILY Vitals/I & O Vital Sign - Last 24 Hours 04/05/19 04/05/19 04/05/19 04/05/19 08:20 08:20 09:00 11:00 Temp 98.8 98.8 Pulse 74 74 71 71 Resp 14 B/P (MAP) 104/67 104/67 98/62 98/62 (74) Pulse Ox 97 O2 Delivery Room Air 04/05/19 04/05/19 04/05/19 04/05/19 12:09 12:16 12:25 12:27 Pulse 71 71 B/P (MAP) 98/62 98/62 Pulse Ox 96 96 O2 Delivery Room Air Room Air 04/05/19 04/05/19 04/05/19 04/05/19 15:00 16:52 17:52 19:25 Temp 98.6 99.1 98.6 99.1 Pulse 71 71 62 Resp 16 16 B/P (MAP) 89/65 (73) 89/65 110/71 (84) Pulse Ox 95 96 96 O2 Delivery Room Air Room Air Room Air 04/05/19 04/05/19 04/05/19 04/06/19 20:00 21:27 23:54 03:46 Temp 98.9 97.8 98.9 97.8 Pulse 57 70 Resp 16 16 B/P (MAP) 109/55 (73) 105/69 (81) Pulse Ox 97 94 97 O2 Delivery Room Air Room Air Room Air Room Air 04/06/19 07:32 Pulse Ox 97 O2 Delivery Room Air Intake and Output 04/05/19 04/05/19 04/06/19 14:59 22:59 06:59 Intake Total 200 ml 340 ml 100 ml Output Total 350 ml 300 ml 200 ml Balance -150 ml 40 ml -100 ml ANNE GAMEZ MD Apr 06, 2019 08:23
--- NOTE | 2019-04-06 09:14 | DS ---
DATE OF DISCHARGE: 04/06/2019 CHIEF COMPLAINT: Abdominal pain with nausea and vomiting. HISTORY OF PRESENT ILLNESS: The patient is a 79-year-old male who was recently admitted to [facility] for treatment of a pulmonary embolism. During that admission, he was also diagnosed with achalasia, which was felt to be chronic for him. In the Emergency Room on the evening of admission, he reported he had not been able to keep down any food for a week, but had been able to tolerate some water. An abdominal ultrasound and a CT of the abdomen and pelvis were without acute findings. The patient had been started on Coumadin earlier this month and an INR done in the Emergency Room showed the INR to be greater than 15. The patient was given one dose of vitamin K and admitted for further treatment. HOSPITAL COURSE: The patient's INR on the morning after admission was 2.0. He received one dose of Coumadin 5 mg last night and his INR is 4.3 this morning. He is advised to continue to hold his Coumadin until his lab is rechecked in our office on Thursday. The patient was diagnosed with achalasia during his last hospital stay when he had an EGD. GI had recommended a diet with moist foods and plenty of water with meals. The patient was not dehydrated on his admission lab and his weight is similar to that during his hospital stay last month. CT and ultrasound were without acute findings. Initially, the patient was reluctant to try eating or drinking much during this hospital stay. He was able to keep down water. Last evening, he ate a turkey sandwich and some Sukhwinder crackers and stated that he did well with this and he is now asking for pancakes and scrambled eggs for breakfast. He was seen by GI yesterday who recommended continuing a moist diet as tolerated and the patient has been advised of this. The patient's chronic medical conditions including atrial fibrillation, chronic back pain and COPD all appeared stable and his usual medications were continued. He has a history of congestive heart failure, but this appears compensated. The patient states he feels much better and is ready to return home today. FINAL DIAGNOSES: 1. Supratherapeutic anticoagulation. 2. Achalasia. 3. Chronic atrial fibrillation. 4. Congestive heart failure. 5. Recent pulmonary embolism. 6. Chronic obstructive pulmonary disease. 7. Chronic back pain. DISCHARGE MEDICATIONS: Remain the same as at admission except that his Coumadin is on hold. He is advised to come to our office on Thursday to have his INR checked and to hold his Coumadin until Dr. Zepeda advises him otherwise. ANNE GAMEZ MD DR: GORDON/tess JOB#: [id number] / [id number] MARIVEL
[2019-04-06] MEDS: DIGOXIN 125 MCG TABLET. PO SCH (09:49)
[2019-04-06] MEDS: IRON POLYSACCHARIDE COMPLEX 150 MG CAPSULE PO SCH (09:50)
[2019-04-06] MEDS: ASPIRIN CHEWABLE 81 MG TABLET. PO SCH (09:50)
[2019-04-06] MEDS: MAGNESIUM OXIDE 400 MG TABLET PO SCH (09:50)
[2019-04-06] MEDS: AMIODARONE HCL 200 MG TABLET. PO SCH (09:51)
[2019-04-06] MEDS: FAMOTIDINE 20 MG/2 ML VIAL IVP SCH (09:52)
[2019-04-06] MEDS: POLYETHYLENE GLYCOL 3350 17 GM PACKET. PO SCH (09:52)
[2019-04-06] MEDS: SOTALOL 80 MG TABLET. PO SCH (09:52)
[2019-04-06 11:00] VITALS: BP_SYST 72; BP_SYST 85; BP_DIAS 45; BP_DIAS 50
[2019-04-06 11:02] VITALS: BP 103/65
--- NOTE | 2019-04-06 11:40 | PDOC ---
Subjective: Subjective: Feels much better, going home today. Objective: Objective: D/w Dr. Miles this morning - tolerating PO (turkey sandwich) - cancel CT and DC Vital Signs: Vital Signs Date Time Temp Pulse Resp B/P (MAP) Pulse Ox O2 Delivery O2 Flow Rate FiO2 04/06/19 11:02 103/65 (78) 04/06/19 11:00 98.0 66 18 98 Room Air 98.0 Labs: Laboratory Tests Test 04/06/19 03:45 Prothrombin Time 41.6 SEC Prothromb Time International Ratio 4.3 PE: GEN: NAD LUNGS: CTAB HEART: RRR ABD: S/ND/NT NEURO/PSYCH: A & O �3 A/P: Vomiting, abd pain - resolved H/o achalasia s/p myotomy and fundoplication H/o constipation -- Improved. Okay to DC per GI. HONEY AUGUSTE Apr 06, 2019 11:40
[2019-04-06 13:13] VITALS: BP 103/65
--- NOTE | 2019-04-06 14:45 | NUR ---
Discharge Note: GENIA MCKENZIE [address] Discharge instructions and discharge home medications reviewed with patient and a copy given. All questions have been answered and understanding verbalized. The following instructions and handouts were given: Follow up at PCP's office on Thursday to have repeat INR and possible resumption of Coumadin. Do not take Coumadin. Wait for Dr's instruction on Thursday. Warfarin tablet and coagulopathy handout. Watch out for bleeding, educated about the risk, and the need for continued INR monitoring. Discontinued lines and drains: peripheral IV intact, patient tolerated removal, no complications noted Patient discharged to home via wheelchair, accompanied by family member at 1400.
== END 2019-04-06 14:00 | disposition home or self-care (01) | DRG 392 ==
LOC: ER 09:00 → ED HOLD 13:51 → 6 SOUTH 19:56 → OBSVTOIN 04-05 13:27
PROVIDERS: ADMIT Family Medicine; ATTEND Family Medicine
DX: K22.0 Achalasia of cardia (principal); I11.0 Hypertensive heart disease with heart failure; I50.9 Heart failure, unspecified; J44.9 Chronic obstructive pulmonary disease, unspecified; I48.2 Chronic atrial fibrillation; F32.9 Major depressive disorder, single episode, unspecified; R79.1 Abnormal coagulation profile; N40.0 Benign prostatic hyperplasia without lower urinary tract symptoms; I25.5 Ischemic cardiomyopathy; I25.10 Atherosclerotic heart disease of native coronary artery without angina pectoris; G89.29 Other chronic pain; E78.5 Hyperlipidemia, unspecified; I95.1 Orthostatic hypotension; G51.0 Bell's palsy; G57.90 Unspecified mononeuropathy of unspecified lower limb; Z91.041 Radiographic dye allergy status; F03.90 Unspecified dementia, unspecified severity, without behavioral disturbance, psychotic disturbance, mood disturbance, and anxiety; F17.210 Nicotine dependence, cigarettes, uncomplicated; K57.30 Diverticulosis of large intestine without perforation or abscess without bleeding; N28.1 Cyst of kidney, acquired; N20.0 Calculus of kidney; Z86.73 Personal history of transient ischemic attack (TIA), and cerebral infarction without residual deficits; Z79.01 Long term (current) use of anticoagulants; Z86.711 Personal history of pulmonary embolism; Z98.1 Arthrodesis status; Z95.810 Presence of automatic (implantable) cardiac defibrillator; Z95.1 Presence of aortocoronary bypass graft; Z86.79 Personal history of other diseases of the circulatory system; Z91.040 Latex allergy status
CPT/HCPCS: 36415; 74022; 74176; 80053; 82553; 83690; 83880; 84484; 85025; 85610; 85730; 93005; 94640; 94760; 96365; 96375; G0378; G0379; J1885; J2270; J2405; J3430; J3490; J7620; J7626; 99285-25

== ENCOUNTER 2019-05-20 13:19 | Emergency (ER) | payer BC, MEDICARE ==
[~2019-05-20] VITALS: Ht 190.5 cm; Wt 72.6 kg
[~2019-05-20 13:19] MED LIST changes: +CLOP75TA PO; +MAGN400T22 PO; -PANT40TA5 PO; +PANT40TA77 PO; +RIVA20TA2 PO; +WARF-31 PO
[2019-05-20 14:07] LABS: BASO # 0.1 x10^3/uL (0.0-0.2); BASO % 1 % (0-3); EOS # 0.2 x10^3/uL (0.0-0.7); EOS % 4 % (0-3); HEMATOCRIT 41.6 % (39.0-53.0); HEMOGLOBIN 13.2 g/dL (13.0-17.5); LYMPH # 1.3 x10^3/uL (1.0-4.8); LYMPH % 25 % (24-48); MEAN CORPUSCULAR HEMOGLOBIN 24 pg (25-35); MEAN CORPUSCULAR HGB CONC 32 g/dL (31-37); MEAN CORPUSCULAR VOLUME 75 fL (79-100); MONO # 0.6 x10^3/uL (0.0-1.1); MONO % 11 % (0-9); NEUT # 3.2 x10^3/uL (1.8-7.7); NEUT % 60 % (31-73); PLATELET COUNT 245 x10^3/uL (140-400); RED BLOOD COUNT 5.52 x10^6/uL (4.30-5.70); WHITE BLOOD COUNT 5.3 x10^3/uL (4.0-11.0)
[2019-05-20 14:15] LABS: CREATININE 1.1 mg/dL (0.7-1.3); GFR 78.5; POTASSIUM 4.4 mmol/L (3.5-5.1)
[2019-05-20 14:20] LABS: ALBUMIN 3.3 g/dL (3.4-5.0); ALBUMIN/GLOBULIN RATIO 1.1 (1.0-1.7); TOTAL BILIRUBIN 0.5 mg/dL (0.2-1.0); TOTAL PROTEIN 6.4 g/dL (6.4-8.2)
[2019-05-20 14:29] LABS: PROTHROMBIN TIME PATIENT 35.5 SEC (11.7-14.0)
[2019-05-20 15:30] VITALS: BP 140/98
[2019-05-20 15:51] LABS: FECAL OB PT NEGATIVE (NEG)
--- NOTE | 2019-05-20 16:24 | PHYS DOC ---
Past Medical History Past Medical History: A-Fib, Arrhythmia, Bronchitis, CHF, Constipation, COPD, CVA, GERD, GI Bleed, High Cholesterol, Hypertension, Hypotension, VT, Other Additional Past Medical Histor: PACEMAKER; AAA; PE; AFIB; BLE NEUROPATHY; ACALASIA; PROSTATE Past Surgical History: Coronary Bypass Surgery, Pacemaker Additional Past Surgical Histo: BACK SURGERY Alcohol Use: Rarely Drug Use: None Adult General Chief Complaint Chief Complaint: GI PROBLEM HPI HPI Patient is a 79 year old male who was recommended to come to ER for evaluation by his home health nurse due to having dark stool for about 2 months. Patient did not tell anybody until today. Patient denies any oral pain, no nausea vomiting, no chest pain, no trouble breathing. Patient is on blood thinner, Coumadin. Review of Systems Review of Systems Constitutional: Denies fever or chills [] Eyes: Denies change in visual acuity, redness, or eye pain [] HENT: Denies nasal congestion or sore throat [] Respiratory: Denies cough or shortness of breath [] Cardiovascular: No additional information not addressed in HPI [] GI: Denies abdominal pain, nausea, vomiting, bloody stools or diarrhea [] : Denies dysuria or hematuria [] Musculoskeletal: Denies back pain or joint pain [] Integument: Denies rash or skin lesions [] Neurologic: Denies headache, focal weakness or sensory changes [] Endocrine: Denies polyuria or polydipsia [] All other systems were reviewed and found to be within normal limits, except as documented in this note. Allergies Allergies Allergies Coded Allergies Type Severity Reaction Last Updated Verified Iodinated Contrast- Oral and IV Dye Allergy Severe anaphalaxis, short of air 03/04/19 Yes adhesive Allergy Severe PAINFUL SKIN IRRITATION 03/04/19 Yes latex Allergy Intermediate Hives 03/04/19 Yes Physical Exam Physical Exam Constitutional: Well developed, well nourished, no acute distress, non-toxic appearance. [] HENT: Normocephalic, atraumatic, bilateral external ears normal, oropharynx moist, no oral exudates, nose normal. [] Eyes: PERRLA, EOMI, conjunctiva normal, no discharge. [] Neck: Normal range of motion, no tenderness, supple, no stridor. [] Cardiovascular:Heart rate regular rhythm, no murmur [] Lungs & Thorax: Bilateral breath sounds clear to auscultation [] Abdomen: Bowel sounds normal, soft, no tenderness, no masses, no pulsatile masses. RECTAL EXAM: NO ACTIVE BLEEDING. STOOL IS DARK. NO HEMORRHOIDS. Skin: Warm, dry, no erythema, no rash. [] Back: No tenderness, no CVA tenderness. [] Extremities: No tenderness, no cyanosis, no clubbing, ROM intact, no edema. [] Neurologic: Alert and oriented X 3, normal motor function, normal sensory function, no focal deficits noted. [] Psychologic: Affect normal, judgement normal, mood normal. [] Current Patient Data Vital Signs Vital Signs Date Time Temp Pulse Resp B/P (MAP) Pulse Ox O2 Delivery O2 Flow Rate FiO2 05/20/19 15:30 69 15 140/98 (112) 98 05/20/19 13:32 98.0 Room Air 98.0 Lab Values Laboratory Tests Test 05/20/19 13:50 05/20/19 14:55 White Blood Count 5.3 x10^3/uL (4.0-11.0) Red Blood Count 5.52 x10^6/uL (4.30-5.70) Hemoglobin 13.2 g/dL (13.0-17.5) Hematocrit 41.6 % (39.0-53.0) Mean Corpuscular Volume 75 fL (79-100) L Mean Corpuscular Hemoglobin 24 pg (25-35) L Mean Corpuscular Hemoglobin Concent 32 g/dL (31-37) Red Cell Distribution Width 25.0 % (11.5-14.5) H Platelet Count 245 x10^3/uL (140-400) Neutrophils (%) (Auto) 60 % (31-73) Lymphocytes (%) (Auto) 25 % (24-48) Monocytes (%) (Auto) 11 % (0-9) H Eosinophils (%) (Auto) 4 % (0-3) H Basophils (%) (Auto) 1 % (0-3) Neutrophils # (Auto) 3.2 x10^3/uL (1.8-7.7) Lymphocytes # (Auto) 1.3 x10^3/uL (1.0-4.8) Monocytes # (Auto) 0.6 x10^3/uL (0.0-1.1) Eosinophils # (Auto) 0.2 x10^3/uL (0.0-0.7) Basophils # (Auto) 0.1 x10^3/uL (0.0-0.2) Platelet Estimate Adequate (ADEQUATE) Polychromasia Slight Anisocytosis Slight Schistocytes Occ Prothrombin Time 35.5 SEC (11.7-14.0) H Prothrombin Time INR 3.5 (0.8-1.1) H PTT 34 SEC (24-38) Sodium Level 144 mmol/L (136-145) Potassium Level 4.4 mmol/L (3.5-5.1) Chloride Level 107 mmol/L (98-107) Carbon Dioxide Level 30 mmol/L (21-32) Anion Gap 7 (6-14) Blood Urea Nitrogen 15 mg/dL (8-26) Creatinine 1.1 mg/dL (0.7-1.3) Estimated GFR (Cockcroft-Gault) 78.5 BUN/Creatinine Ratio 14 (6-20) Glucose Level 107 mg/dL (70-99) H Calcium Level 9.0 mg/dL (8.5-10.1) Total Bilirubin 0.5 mg/dL (0.2-1.0) Aspartate Amino Transferase (AST) 18 U/L (15-37) Alanine Aminotransferase (ALT) 20 U/L (16-63) Alkaline Phosphatase 73 U/L (46-116) Troponin I Quantitative < 0.017 ng/mL (0.000-0.055) RH-Gzp-U-Type Natriuretic Peptide 987 pg/mL (0-449) H Total Protein 6.4 g/dL (6.4-8.2) Albumin 3.3 g/dL (3.4-5.0) L Albumin/Globulin Ratio 1.1 (1.0-1.7) Digoxin Level 1.0 ng/mL (0.9-2.0) Digoxin Last Dose Date Unknown Digoxin Last Dose Time Unknown Stool Occult Blood Negative (NEG) Laboratory Tests 05/20/19 13:50 Laboratory Tests 05/20/19 13:50 EKG EKG [] Radiology/Procedures Radiology/Procedures [] Course & Med Decision Making Course & Med Decision Making Pertinent Labs and Imaging studies reviewed. (See chart for details) Patient's stool color was dark is most likely due to his iron supplement that he has been taking. Hemoccult study was negative for blood. Patient is not anemic. His Family doctor , Dr. Meadows was notified, agreed with assessment and ok to discharge home. Dragon Disclaimer Dragon Disclaimer This electronic medical record was generated, in whole or in part, using a voice recognition dictation system. Departure Departure Impression: Primary Impression: Feared condition not demonstrated Disposition: 01 HOME, SELF-CARE Condition: STABLE Referrals: Hazel MEADOWS MD (PCP) FOLLOW UP WITH YOUR DOCTOR NEEDED Patient Instructions: Stool Examination HILDA CARBAJAL DO May 20, 2019 16:24
[2019-05-20 17:33] LABS: PLT ESTIMATE ADEQUATE (ADEQUATE)
[2019-05-20 17:34] LABS: ANISOCYTOSIS SLIGHT; POLYCHROMASIA SLIGHT; SCHISTOCYTES OCC
--- NOTE | 2019-05-23 08:16 | EKG ---
[facility] [address] [place] [address] Test Date: 2019-05-20 Test Time: 13:38:25 Pat Name: GENIA MCKENZIE Department: Room: Gender: M Crna: : 1940 Requested By: IHLDA CARBAJAL Order Number: [id number] Reading MD: Measurements Intervals [place] Rate: 70 P: NC: QRS: -89 QRSD: 184 T: 86 QT: 444 QTc: 483 Interpretive Statements SINUS RHYTHM ABNORMAL LEFT AXIS DEVIATION NON SPECIFIC INTRAVENTRICULAR BLOCK QRS(T) CONTOUR ABNORMALITY CONSISTENT WITH ANTEROSEPTAL INFARCT AGE UNDETERMINED ABNORMAL ECG RI6.01 Unconfirmed report No previous ECG available for comparison
== END 2019-05-20 16:45 | disposition home or self-care (01) ==
LOC: ER 13:19
DX: Z71.1 Person with feared health complaint in whom no diagnosis is made (principal); I11.0 Hypertensive heart disease with heart failure; I50.9 Heart failure, unspecified; K21.9 Gastro-esophageal reflux disease without esophagitis; I48.91 Unspecified atrial fibrillation; E78.00 Pure hypercholesterolemia, unspecified; J44.9 Chronic obstructive pulmonary disease, unspecified; I25.2 Old myocardial infarction; Z95.1 Presence of aortocoronary bypass graft; Z95.0 Presence of cardiac pacemaker; Z91.040 Latex allergy status; Z91.041 Radiographic dye allergy status; Z88.8 Allergy status to other drugs, medicaments and biological substances
CPT/HCPCS: 36415; 80053; 80162; 82274; 83880; 84484; 85025; 85610; 85730; 86850; 86900; 86901; 93005; 99285-25

== ENCOUNTER 2019-07-06 10:38 | Inpatient (IN) | payer MEDICARE, BC ==
[~2019-07-06] VITALS: Ht 190.5 cm; Wt 76.2 kg
[2019-07-06] VITALS (7 sets, daily range): BP systolic 111–141; BP diastolic 61–89
[2019-07-06 11:03] LABS: BASO # 0.1 x10^3/uL (0.0-0.2); BASO % 2 % (0-3); EOS # 0.4 x10^3/uL (0.0-0.7); EOS % 9 % (0-3); HEMATOCRIT 41.2 % (39.0-53.0); HEMOGLOBIN 13.3 g/dL (13.0-17.5); LYMPH # 0.7 x10^3/uL (1.0-4.8); LYMPH % 16 % (24-48); MEAN CORPUSCULAR HEMOGLOBIN 27 pg (25-35); MEAN CORPUSCULAR HGB CONC 32 g/dL (31-37); MEAN CORPUSCULAR VOLUME 83 fL (79-100); MONO # 0.4 x10^3/uL (0.0-1.1); MONO % 10 % (0-9); NEUT # 2.6 x10^3/uL (1.8-7.7); NEUT % 62 % (31-73); PLATELET COUNT 231 x10^3/uL (140-400); RED BLOOD COUNT 4.99 x10^6/uL (4.30-5.70); RED CELL DISTRIBUTION WIDTH 29.1 % (11.5-14.5); WHITE BLOOD COUNT 4.3 x10^3/uL (4.0-11.0)
--- NOTE | 2019-07-06 11:17 | RAD ---
PORTABLE CHEST 1V History: Chest pain Comparison: March 04, 2019. Findings: No consolidation or pleural effusion. Normal heart size. Left sided pacemaker/ICD, unchanged. Calcified right basilar granuloma. Impression: 1. No acute cardiopulmonary process. Electronically signed by: Alfredo Almazan DO (07/06/2019 11:14 AM) [id number]
[2019-07-06 11:18] LABS: CALCIUM 9.1 mg/dL (8.5-10.1); CREATININE 0.9 mg/dL (0.7-1.3); POTASSIUM 4.2 mmol/L (3.5-5.1)
--- NOTE | 2019-07-06 11:20 | EKG ---
[facility] [address] [place] [address] Test Date: 2019-07-06 Test Time: 10:45:45 Pat Name: GENIA MCKENZIE Department: Room: Gender: M Pan Helper: : 1940 Requested By: JASON URENA Order Number: [id number] Reading MD: Measurements Intervals [place] Rate: 70 P: NE: QRS: -86 QRSD: 174 T: 90 QT: 440 QTc: 478 Interpretive Statements IRREGULAR RHYTHM, NO P-WAVE FOUND ABNORMAL LEFT AXIS DEVIATION NON SPECIFIC INTRAVENTRICULAR BLOCK QRS(T) CONTOUR ABNORMALITY CONSISTENT WITH ANTEROSEPTAL INFARCT PROBABLY OLD ABNORMAL ECG RI6.01 Unconfirmed report No previous ECG available for comparison
[2019-07-06 11:21] LABS: PROTHROMBIN TIME PATIENT 71.3 SEC (11.7-14.0)
[2019-07-06 11:23] LABS: ALBUMIN 3.1 g/dL (3.4-5.0); ALBUMIN/GLOBULIN RATIO 0.8 (1.0-1.7); MAGNESIUM 1.9 mg/dL (1.8-2.4); TOTAL BILIRUBIN 0.7 mg/dL (0.2-1.0); TOTAL PROTEIN 6.8 g/dL (6.4-8.2)
[2019-07-06 11:37] LABS: ANISOCYTOSIS SLIGHT; PLT ESTIMATE ADEQUATE (ADEQUATE)
--- NOTE | 2019-07-06 12:11 | PHYS DOC ---
Past Medical History Past Medical History: A-Fib, Arrhythmia, Bronchitis, CHF, Constipation, COPD, CVA, GERD, GI Bleed, High Cholesterol, Hypertension, Hypotension, IN, Other Additional Past Medical Histor: PACEMAKER; AAA; PE; AFIB; BLE NEUROPATHY; ACALASIA; PROSTATE Past Surgical History: Coronary Bypass Surgery, Pacemaker Additional Past Surgical Histo: BACK SURGERY Alcohol Use: Rarely Drug Use: None Adult General Chief Complaint Chief Complaint: chest pain, took extra Coumadin [facility] HPI Patient is a 79 year old male who presents via EMS with complaining of taking extra Coumadin and chest pain. Patient states he accidentally took one extra pill of Coumadin 5 mg yesterday and another one this morning and his home health nurse who visiting him once a week recommended to come to hospital. Patient denies hematemesis and melena, easy bruising, falls and headache. Patient also complaining of intermittent episodes of substernal pressure chest pain for the last 3 or 4 days that usually happen with eating and lasts for a few seconds. Patient states the pain is radiated to his left shoulder and denies focal neuro deficit, nausea, fever and chills, chest injury. Patient is comfortable but rated his pain 8/10. Review of Systems Review of Systems Constitutional: Denies fever or chills [] Eyes: Denies change in visual acuity, redness, or eye pain [] HENT: Denies nasal congestion or sore throat [] Respiratory: Denies cough or shortness of breath [] Cardiovascular: No additional information not addressed in HPI [] GI: Denies abdominal pain, nausea, vomiting, bloody stools or diarrhea [] : Denies dysuria or hematuria [] Musculoskeletal: Denies back pain or joint pain [] Integument: Denies rash or skin lesions [] Neurologic: Denies headache, focal weakness or sensory changes [] Endocrine: Denies polyuria or polydipsia [] All other systems were reviewed and found to be within normal limits, except as documented in this note. Current Medications Current Medications Allergies Allergies Allergies Coded Allergies Type Severity Reaction Last Updated Verified Iodinated Contrast Media Allergy Severe anaphalaxis, short of air 03/04/19 Yes adhesive Allergy Severe PAINFUL SKIN IRRITATION 03/04/19 Yes latex Allergy Intermediate Hives 03/04/19 Yes Physical Exam Physical Exam Constitutional: Well developed, well nourished, no acute distress, non-toxic appearance. [] HENT: Normocephalic, atraumatic, bilateral external ears normal, oropharynx moist, no oral exudates, nose normal. [] Eyes: PERRLA, EOMI, conjunctiva normal, no discharge. [] Neck: Normal range of motion, no tenderness, supple, no stridor. [] Cardiovascular:Heart rate regular rhythm, no murmur [] Lungs & Thorax: Bilateral breath sounds clear to auscultation [] Abdomen: Bowel sounds normal, soft, no tenderness, no masses, no pulsatile ma sses. [] Skin: Warm, dry, no erythema, no rash. [] Back: No tenderness, no CVA tenderness. [] Extremities: No tenderness, no cyanosis, no clubbing, ROM intact, no edema. [] Neurologic: Alert and oriented X 3, normal motor function, normal sensory function, no focal deficits noted. [] Psychologic: Affect normal, judgement normal, mood normal. [] Current Patient Data Vital Signs Vital Signs Date Time Temp Pulse Resp B/P (MAP) Pulse Ox O2 Delivery O2 Flow Rate FiO2 07/06/19 10:49 98.1 71 16 133/85 (101) 97 Room Air 98.1 Lab Values Laboratory Tests Test 07/06/19 10:55 White Blood Count 4.3 x10^3/uL (4.0-11.0) Red Blood Count 4.99 x10^6/uL (4.30-5.70) Hemoglobin 13.3 g/dL (13.0-17.5) Hematocrit 41.2 % (39.0-53.0) Mean Corpuscular Volume 83 fL (79-100) Mean Corpuscular Hemoglobin 27 pg (25-35) Mean Corpuscular Hemoglobin Concent 32 g/dL (31-37) Red Cell Distribution Width 29.1 % (11.5-14.5) H Platelet Count 231 x10^3/uL (140-400) Neutrophils (%) (Auto) 62 % (31-73) Lymphocytes (%) (Auto) 16 % (24-48) L Monocytes (%) (Auto) 10 % (0-9) H Eosinophils (%) (Auto) 9 % (0-3) H Basophils (%) (Auto) 2 % (0-3) Neutrophils # (Auto) 2.6 x10^3/uL (1.8-7.7) Lymphocytes # (Auto) 0.7 x10^3/uL (1.0-4.8) L Monocytes # (Auto) 0.4 x10^3/uL (0.0-1.1) Eosinophils # (Auto) 0.4 x10^3/uL (0.0-0.7) Basophils # (Auto) 0.1 x10^3/uL (0.0-0.2) Platelet Estimate Adequate (ADEQUATE) Anisocytosis Slight Prothrombin Time 71.3 SEC (11.7-14.0) H Prothrombin Time INR 8.5 (0.8-1.1) *H Sodium Level 144 mmol/L (136-145) Potassium Level 4.2 mmol/L (3.5-5.1) Chloride Level 108 mmol/L (98-107) H Carbon Dioxide Level 32 mmol/L (21-32) Anion Gap 4 (6-14) L Blood Urea Nitrogen 10 mg/dL (8-26) Creatinine 0.9 mg/dL (0.7-1.3) Estimated GFR (Cockcroft-Gault) 99.0 BUN/Creatinine Ratio 11 (6-20) Glucose Level 82 mg/dL (70-99) Calcium Level 9.1 mg/dL (8.5-10.1) Magnesium Level 1.9 mg/dL (1.8-2.4) Total Bilirubin 0.7 mg/dL (0.2-1.0) Aspartate Amino Transferase (AST) 17 U/L (15-37) Alanine Aminotransferase (ALT) 16 U/L (16-63) Alkaline Phosphatase 80 U/L (46-116) Creatine Kinase 87 U/L (39-308) Troponin I Quantitative < 0.017 ng/mL (0.000-0.055) CR-Hsu-H-Type Natriuretic Peptide 763 pg/mL (0-449) H Total Protein 6.8 g/dL (6.4-8.2) Albumin 3.1 g/dL (3.4-5.0) L Albumin/Globulin Ratio 0.8 (1.0-1.7) L Lipase 55 U/L (73-393) L Laboratory Tests 07/06/19 10:55 Laboratory Tests 07/06/19 10:55 EKG EKG EKG interpreted by me. EKG at 1045 showed normal sinus rhythm at rate of 70, multiple artifact, left axis deviation, nonspecific intraventricular block, Q waves in anterior leads, Q waves in inferior leads, no acute ST elevation. Radiology/Procedures Radiology/Procedures [][facility] [address] [place] [address] IMAGING REPORT Signed PATIENT: GENIA MCKENZIE ACCOUNT: [id number] : 1940 LOCATION: ER AGE: 79 SEX: M EXAM STATUS: PRE ER ORD. PHYSICIAN: JASON URENA MD REASON: chest pain PROCEDURE: PORTABLE CHEST 1V PORTABLE CHEST 1V History: Chest pain Comparison: March 04, 2019. Findings: No consolidation or pleural effusion. Normal heart size. Left sided pacemaker/ICD, unchanged. Calcified right basilar granuloma. Impression: 1. No acute cardiopulmonary process. Electronically signed by: Alfredo Daniel DO (07/06/2019 11:14 AM) [id number] DICTATED and SIGNED BY: ALFREDO DANIEL DO DATE: 07/06/19 1114 Course & Med Decision Making Course & Med Decision Making Pertinent Labs and Imaging studies reviewed. (See chart for details) Evaluation of patient in ER showed 79-year-old male patient with accidental overdose of Coumadin with INR of 8.5 without active bleeding. Patient also complaining of episodes of chest pain. Patient had heart score of 3. Patient treated with 10 mg of oral vitamin K in ER. Patient requiring admission for further evaluation and treatment. Discussed with (Reenao is in agreement with admission. Discussed findings and plan with patient and family, who acknowledge understanding and agreement. Dragon Disclaimer Dragon Disclaimer This electronic medical record was generated, in whole or in part, using a voice recognition dictation system. Departure Departure Impression: Primary Impression: Coumadin toxicity Additional Impressions: Chest pain Elevated brain natriuretic peptide (BNP) level Disposition: ADMITTED INPATIENT (at 1207) Admitting Physician: Ace Zepeda (accepted admission at 1206) Condition: IMPROVED Referrals: Hazel ZEPEDA MD (PCP) The HEART Score for CP Pts HEART Score for Chest Pain: HEART Score for Chest Pain Response (Comments) Value History Slighlty/Non-Suspicious 0 ECG Nonspecific Repolarizatio 1 Age > 65 2 Risk Factors >3 Risk Factors or Hx CAD 2 Troponin < Normal Limit 0 Total 5 Risk Factors: Risk Factors: DM, Current or recent (<one month) smoker, HTN, HLP, family hi story of CAD, obesity. Risk Scores: Score 0 - 3: 2.5% MACE over next 6 weeks - Discharge Home Score 4 - 6: 20.3% MACE over next 6 weeks - Admit for Clinical Observation Score 7 - 10: 72.7% MACE over next 6 weeks - Early Invasive Strategies Critical Care Time Critical care time was 60 minutes exclusive of procedures. Problem Qualifiers Primary Impression: Coumadin toxicity Encounter type: initial encounter Injury intent: accidental or unintentional Qualified Codes: T45.511A - Poisoning by anticoagulants, accidental (unintentional), initial encounter Additional Impressions: Chest pain Chest pain type: unspecified Qualified Codes: R07.9 - Chest pain, unspe cified JASON URENA MD Jul 06, 2019 12:11
[2019-07-06] MEDS ORDERED: fentaNYL PF VIAL 100 MCG/2 ML VIAL IV ONE (12:15)
[2019-07-06] MEDS ORDERED: PHYTONADIONE 10 MG/ML ORAL SOLUTION. PO ONE (12:30)
--- NOTE | 2019-07-06 15:14 | PDOC1 ---
History and Physical Date of Admission Date of Admission 07/06/19 Identification/Chief Complaint Chief Complaint chest pain Source Source: Patient History of Present Illness History of Present Illness He was in the office 06/30/19 for hospital f/u of admission to another facility due to back pain and weakness from lumbar spinal stenosis. He has a hx of afib and is on warfaring but he got confused about his doses and tooke extra warfarin the past 2 days. His home health nurse checked on him today and called to say his INR was 8. He was not bleeding and had not fallen or had any other trauma but did admit to having chest pain so EMS called and brouth to Er and admitted. He has CAD but also has esophageal dysmotility. His initial cardiac lab and EKG are non diagnostic. He did have a seizure when in my office and was started on Keppra 500 mg bid which he has been taking. He was ordered a wheelchair for his mobility issues from the spinal stenosis at his last office visit, prior to the office visit he was not letting HH into his home. His granddaughter Desiree is now involved and trying to set up a pill box for edgare and is working with HH Past Medical History Cardiovascular: AFIB, CAD, CHF, HTN, [place], Hyperlipidemia, Other Pulmonary: Bronchitis, COPD CENTRAL NERVOUS SYSTEM: CVA, Periperal neuropathy, Other GI: Constipation, GERD Heme/Onc: No pertinent hx, Other Hepatobiliary: No pertinent hx Psych: Addictions Rheumatologic: No pertinent hx Infectious disease: No pertinent hx Renal/: Benign prostatic enlarg. Past Surgical History Past Surgical History: Pacemaker, CABG, Cataract Removal, Hernia Repair, Other Family History Family History: Heart Disease Social History ALCOHOL: none Drugs: None Current Problem List Problem List Problems Medical Problems: (1) Chest pain Status: Acute (2) Coumadin toxicity Status: Acute (3) Elevated brain natriuretic peptide (BNP) level Status: Acute Current Medications Current Medications Current Medications Medications (Trade) Dose Ordered Sig/[place] Start Time Stop Time Status Last Admin Dose Admin Fentanyl Citrate (Fentanyl 2ml Vial) 50 mcg 1X ONCE 07/06/19 12:15 07/06/19 12:16 DC Phytonadione (Mephyton Oral Soln) 10 mg 1X ONCE 07/06/19 12:30 07/06/19 12:31 DC 07/06/19 12:23 10 MG Allergies Allergies Allergies Coded Allergies Type Severity Reaction Last Updated Verified Iodinated Contrast Media Allergy Severe anaphalaxis, short of air 03/04/19 Yes adhesive Allergy Severe PAINFUL SKIN IRRITATION 03/04/19 Yes latex Allergy Intermediate Hives 03/04/19 Yes ROS Review of System CONSTITUTIONAL: No fever or chills EYES: No recent changes SKIN: No rash or itching, no bruising CARDIOVASCULAR: + chest pain, + syncope, hx of CAD RESPIRATORY: SOB with exertion, no cough GASTROINTESTINAL: No nausea, vomiting or abdominal pain NEUROLOGICAL: No headaches, + weakness and neuropathy of LE, recent new seizure, hx of encephalomalacia from prior strokes ENDOCRINE: No cold or heat intolerance GENITOURINARY: No urgency or frequency of urination MUSCULOSKELETAL: + back pain or joint pain LYMPHATICS: No enlarged lymph nodes PSYCHIATRIC: + anxiety and irritability, ? depression Physical Exam Physical Exam GEN.: No apparent distress. Alert and oriented. HEENT: Head is normocephalic, atraumatic NECK: Supple. LUNGS: Clear to auscultation. HEART: RRR, S1, S2 present. Peripheral pulses intact ABDOMEN: Soft, nontender. Positive bowel sounds. EXTREMITIES: Without any cyanosis. NEUROLOGIC: Normal speech, normal tone PSYCHIATRIC: Normal affect, normal mood. SKIN: No ulcerations Vitals Vitals Vital Signs Date Time Temp Pulse Resp B/P (MAP) Pulse Ox O2 Delivery O2 Flow Rate FiO2 07/06/19 13:15 97.8 70 18 141/89 (106) 97 Room Air 97.8 Labs Labs Laboratory Tests Test 07/06/19 10:55 White Blood Count 4.3 x10^3/uL (4.0-11.0) Red Blood Count 4.99 x10^6/uL (4.30-5.70) Hemoglobin 13.3 g/dL (13.0-17.5) Hematocrit 41.2 % (39.0-53.0) Mean Corpuscular Volume 83 fL (79-100) Mean Corpuscular Hemoglobin 27 pg (25-35) Mean Corpuscular Hemoglobin Concent 32 g/dL (31-37) Red Cell Distribution Width 29.1 % (11.5-14.5) Platelet Count 231 x10^3/uL (140-400) Neutrophils (%) (Auto) 62 % (31-73) Lymphocytes (%) (Auto) 16 % (24-48) Monocytes (%) (Auto) 10 % (0-9) Eosinophils (%) (Auto) 9 % (0-3) Basophils (%) (Auto) 2 % (0-3) Neutrophils # (Auto) 2.6 x10^3/uL (1.8-7.7) Lymphocytes # (Auto) 0.7 x10^3/uL (1.0-4.8) Monocytes # (Auto) 0.4 x10^3/uL (0.0-1.1) Eosinophils # (Auto) 0.4 x10^3/uL (0.0-0.7) Basophils # (Auto) 0.1 x10^3/uL (0.0-0.2) Platelet Estimate Adequate (ADEQUATE) Anisocytosis Slight Prothrombin Time 71.3 SEC (11.7-14.0) Prothromb Time International Ratio 8.5 (0.8-1.1) Sodium Level 144 mmol/L (136-145) Potassium Level 4.2 mmol/L (3.5-5.1) Chloride Level 108 mmol/L (98-107) Carbon Dioxide Level 32 mmol/L (21-32) Anion Gap 4 (6-14) Blood Urea Nitrogen 10 mg/dL (8-26) Creatinine 0.9 mg/dL (0.7-1.3) Estimated GFR (Cockcroft-Gault) 99.0 BUN/Creatinine Ratio 11 (6-20) Glucose Level 82 mg/dL (70-99) Calcium Level 9.1 mg/dL (8.5-10.1) Magnesium Level 1.9 mg/dL (1.8-2.4) Total Bilirubin 0.7 mg/dL (0.2-1.0) Aspartate Amino Transf (AST/SGOT) 17 U/L (15-37) Alanine Aminotransferase (ALT/SGPT) 16 U/L (16-63) Alkaline Phosphatase 80 U/L (46-116) Creatine Kinase 87 U/L (39-308) Troponin I Quantitative < 0.017 ng/mL (0.000-0.055) VS-Aum-L-Type Natriuretic Peptide 763 pg/mL (0-449) Total Protein 6.8 g/dL (6.4-8.2) Albumin 3.1 g/dL (3.4-5.0) Albumin/Globulin Ratio 0.8 (1.0-1.7) Lipase 55 U/L (73-393) Laboratory Tests Test 07/06/19 10:55 White Blood Count 4.3 x10^3/uL (4.0-11.0) Red Blood Count 4.99 x10^6/uL (4.30-5.70) Hemoglobin 13.3 g/dL (13.0-17.5) Hematocrit 41.2 % (39.0-53.0) Mean Corpuscular Volume 83 fL (79-100) Mean Corpuscular Hemoglobin 27 pg (25-35) Mean Corpuscular Hemoglobin Concent 32 g/dL (31-37) Red Cell Distribution Width 29.1 % (11.5-14.5) Platelet Count 231 x10^3/uL (140-400) Neutrophils (%) (Auto) 62 % (31-73) Lymphocytes (%) (Auto) 16 % (24-48) Monocytes (%) (Auto) 10 % (0-9) Eosinophils (%) (Auto) 9 % (0-3) Basophils (%) (Auto) 2 % (0-3) Neutrophils # (Auto) 2.6 x10^3/uL (1.8-7.7) Lymphocytes # (Auto) 0.7 x10^3/uL (1.0-4.8) Monocytes # (Auto) 0.4 x10^3/uL (0.0-1.1) Eosinophils # (Auto) 0.4 x10^3/uL (0.0-0.7) Basophils # (Auto) 0.1 x10^3/uL (0.0-0.2) Platelet Estimate Adequate (ADEQUATE) Anisocytosis Slight Prothrombin Time 71.3 SEC (11.7-14.0) Prothromb Time International Ratio 8.5 (0.8-1.1) Sodium Level 144 mmol/L (136-145) Potassium Level 4.2 mmol/L (3.5-5.1) Chloride Level 108 mmol/L (98-107) Carbon Dioxide Level 32 mmol/L (21-32) Anion Gap 4 (6-14) Blood Urea Nitrogen 10 mg/dL (8-26) Creatinine 0.9 mg/dL (0.7-1.3) Estimated GFR (Cockcroft-Gault) 99.0 BUN/Creatinine Ratio 11 (6-20) Glucose Level 82 mg/dL (70-99) Calcium Level 9.1 mg/dL (8.5-10.1) Magnesium Level 1.9 mg/dL (1.8-2.4) Total Bilirubin 0.7 mg/dL (0.2-1.0) Aspartate Amino Transf (AST/SGOT) 17 U/L (15-37) Alanine Aminotransferase (ALT/SGPT) 16 U/L (16-63) Alkaline Phosphatase 80 U/L (46-116) Creatine Kinase 87 U/L (39-308) Troponin I Quantitative < 0.017 ng/mL (0.000-0.055) LL-Dyp-I-Type Natriuretic Peptide 763 pg/mL (0-449) Total Protein 6.8 g/dL (6.4-8.2) Albumin 3.1 g/dL (3.4-5.0) Albumin/Globulin Ratio 0.8 (1.0-1.7) Lipase 55 U/L (73-393) Images Images PORTABLE CHEST 1V History: Chest pain Comparison: March 04, 2019. Findings: No consolidation or pleural effusion. Normal heart size. Left sided pacemaker/ICD, unchanged. Calcified right basilar granuloma. Impression: 1. No acute cardiopulmonary process. VTE Prophylaxis Ordered VTE Prophylaxis Devices: Yes VTE Pharmacological Prophylaxi: Yes Assessment/Plan Assessment/Plan chest pain- hx of CAD, afib - cardiology consult coagulopathy - INR 8.0 due to confusion of dose - he received Vit K in ER, no active bleeding dizziness - fall risk lumbar spinal stenosis - previously seen by Dr. Frausto, PT/OT, pain control prior CVA with encephalomalacia - he has been irritable and unwelcoming to HH assistance but granddaughter now DPOA recent seizure - Keppra started last week Hazel MEADOWS MD Jul 06, 2019 15:14
--- NOTE | 2019-07-06 16:11 | EKG ---
[facility] [address] [place] [address] Test Date: 2019-07-06 Test Time: 15:37:00 Pat Name: GENIA MCKENZIE Department: Room: 203 1 Gender: M Research Fellow: : 1940 Requested By: Hazel MEADOWS Order Number: [id number] Reading MD: Measurements Intervals [place] Rate: 74 P: 90 TN: 240 QRS: -88 QRSD: 180 T: 86 QT: 444 QTc: 493 Interpretive Statements SINUS RHYTHM PROLONGED TN INTERVAL ABNORMAL LEFT AXIS DEVIATION NON SPECIFIC INTRAVENTRICULAR BLOCK QRS(T) CONTOUR ABNORMALITY CONSISTENT WITH ANTEROSEPTAL INFARCT PROBABLY OLD ABNORMAL ECG RI6.01 Unconfirmed report Compared to ECG 05/20/2019 13:38:25 First degree AV block now present Left-axis deviation now present Myocardial infarct finding now present Ventricular-paced complex(es) or rhythm no longer present
--- NOTE | 2019-07-06 16:46 | PDOC2 ---
CARDIAC CONSULT DATE OF CONSULT Date of Consult DATE: 07/06/19 TIME: 15:36 REASON FOR CONSULT Reason for Consult: Chest pain REFERRING PHYSICIAN Referring Physician: SOURCE Source: Caregiver, Chart review, Patient HISTORY OF PRESENT ILLNESS HISTORY OF PRESENT ILLNESS This is a pleasant 79 yo male admitted for complains of chest pain. Reports that he has been having about intermittent 10 sec episode of sharp right upper chest pain mainly when he eats. No associated significant SOA, palpitations, or diaphoresis. No nausea or vomiting but has been having episodes where his solid food get stuck midway when eating and it takes a while before finally going down to his stomach. He did fall about 3 weeks ago and ruled due to seizure. No trauma at that time. His daughter has been living with him but still getting confused with his medications and apparently possibly took the wrong dose of coumadin. He is not clear about the medications that he takes claiming that he has too many. To add his right chest pain is also reproducible with palpation. PAST MEDICAL HISTORY Past Medical History Cardiovascular: AFIB, CAD, CHF, HTN, IL, Hyperlipidemia, orthostasis Pulmonary: Bronchitis, COPD CENTRAL NERVOUS SYSTEM: CVA, Peripheral neuropathy, dementia, seizures GI: Constipation, GERD Heme/Onc: No pertinent hx, Other Hepatobiliary: No pertinent hx Psych: Addictions Musculoskeletal: low back pain, OA Rheumatologic: No pertinent hx Infectious disease: No pertinent hx Renal/: Benign prostatic enlarg. PAST SURGICAL HISTORY Past Surgical History AICD with recent repair due to lead fracture, CABG, Cataract Removal, Hernia Repair FAMILY HISTORY Family History: Heart Disease SOCIAL HISTORY Smoke: No ALCOHOL: none Drugs: None Lives: Alone CURRENT MEDICATIONS CURRENT MEDICATIONS Current Medications Medications (Trade) Dose Ordered Sig/[place] Route PRN Reason Start Time Stop Time Status Last Admin Dose Admin Phytonadione (Mephyton Oral Soln) 10 mg 1X ONCE PO 07/06/19 12:30 07/06/19 12:31 DC 07/06/19 12:23 ALLERGIES ALLERGIES: Coded Allergies: Iodinated Contrast Media (Verified Allergy, Severe, anaphalaxis, short of air, 03/04/19) adhesive (Verified Allergy, Severe, PAINFUL SKIN IRRITATION , 03/04/19) latex (Verified Allergy, Intermediate, Hives, 03/04/19) ROS Review of System 14 point ROS evaluated with pertinent positives noted per HPI PHYSICAL EXAM General: Alert, Oriented X3, Cooperative, No acute distress HEENT: Atraumatic, Mucous membr. moist/pink Lungs: Other (diminished bases) Heart: Regular rate (V paced with underlying AFIB), Normal S1, Normal S2, Other (2/6 systolic murmur to LLS border) Abdomen: Soft, No tenderness Extremities: No cyanosis, No edema Skin: No breakdown, No significant lesion Neuro: Normal speech, Sensation intact Psych/Mental Status: Mental status NL, Mood NL MUSCULOSKELETAL: Osteoarthritic changes both hands VITALS/I&O VITALS/I&O: Vital Signs Date Time Temp Pulse Resp B/P (MAP) Pulse Ox O2 Delivery O2 Flow Rate FiO2 07/06/19 13:15 97.8 70 18 141/89 (106) 97 Room Air 97.8 LABS Lab: Laboratory Tests Test 07/06/19 10:55 White Blood Count 4.3 x10^3/uL (4.0-11.0) Red Blood Count 4.99 x10^6/uL (4.30-5.70) Hemoglobin 13.3 g/dL (13.0-17.5) Hematocrit 41.2 % (39.0-53.0) Mean Corpuscular Volume 83 fL (79-100) Mean Corpuscular Hemoglobin 27 pg (25-35) Mean Corpuscular Hemoglobin Concent 32 g/dL (31-37) Red Cell Distribution Width 29.1 % (11.5-14.5) H Platelet Count 231 x10^3/uL (140-400) Neutrophils (%) (Auto) 62 % (31-73) Lymphocytes (%) (Auto) 16 % (24-48) L Monocytes (%) (Auto) 10 % (0-9) H Eosinophils (%) (Auto) 9 % (0-3) H Basophils (%) (Auto) 2 % (0-3) Neutrophils # (Auto) 2.6 x10^3/uL (1.8-7.7) Lymphocytes # (Auto) 0.7 x10^3/uL (1.0-4.8) L Monocytes # (Auto) 0.4 x10^3/uL (0.0-1.1) Eosinophils # (Auto) 0.4 x10^3/uL (0.0-0.7) Basophils # (Auto) 0.1 x10^3/uL (0.0-0.2) Platelet Estimate Adequate (ADEQUATE) Anisocytosis Slight Prothrombin Time 71.3 SEC (11.7-14.0) H Prothrombin Time INR 8.5 (0.8-1.1) *H Sodium Level 144 mmol/L (136-145) Potassium Level 4.2 mmol/L (3.5-5.1) Chloride Level 108 mmol/L (98-107) H Carbon Dioxide Level 32 mmol/L (21-32) Anion Gap 4 (6-14) L Blood Urea Nitrogen 10 mg/dL (8-26) Creatinine 0.9 mg/dL (0.7-1.3) Estimated GFR (Cockcroft-Gault) 99.0 BUN/Creatinine Ratio 11 (6-20) Glucose Level 82 mg/dL (70-99) Calcium Level 9.1 mg/dL (8.5-10.1) Magnesium Level 1.9 mg/dL (1.8-2.4) Total Bilirubin 0.7 mg/dL (0.2-1.0) Aspartate Amino Transferase (AST) 17 U/L (15-37) Alanine Aminotransferase (ALT) 16 U/L (16-63) Alkaline Phosphatase 80 U/L (46-116) Creatine Kinase 87 U/L (39-308) Troponin I Quantitative < 0.017 ng/mL (0.000-0.055) VD-Wwp-S-Type Natriuretic Peptide 763 pg/mL (0-449) H Total Protein 6.8 g/dL (6.4-8.2) Albumin 3.1 g/dL (3.4-5.0) L Albumin/Globulin Ratio 0.8 (1.0-1.7) L Lipase 55 U/L (73-393) L Laboratory Tests 07/06/19 10:55 Laboratory Tests 07/06/19 10:55 ECHOCARDIOGRAM ECHOCARDIOGRAM <Conclusion> The left ventricular systolic function is normal and the ejection fraction is within normal range. The Ejection Fraction is 60-65%. Doppler and Color Flow revealed mild tricuspid regurgitation. The PA pressure was estimated at 33 mmHg. Septal motion suggestive of conduction defect, otherwise normal wall motion. DATE: 01/25/19 2886 STRESS TEST STRESS TEST Conclusion 1. Paced rhythm. 2. Nuclear imaging shows no reversible ischemia. 3. Nuclear imaging shows mild fixed thinning of the inferior wall consistent with an attenuation defect. 4. Normal LV systolic function with an ejection fraction of 60%. 5. Moderately low risk Lexiscan stress test with no reversible ischemia and an ejection fraction of 60%. DATE: 03/28/18 1413 HEART CATH HEART CATH Conclusion #1. Two-vessel coronary artery disease. #2. Successful intervention of proximal RCA with bare-metal stent. ( 3.0 x 15 mm ResponseTek) #3. Severe left jugular dysfunction with global hypokinesis. Estimated ejection fraction 15 to 20% #4. Elevated Left ventricular end-diastolic pressure. Recommendations Cardiac Rehabilitation Referral Daily ASA with Plavix for at least one year Aggressive Medical Therapy Cardiac Risk Reduction Program Patient has a component of both ischemic and nonischemic cardiomyopathy. Right coronary lesion intervened upon today does not fully explain the extent of cardiomyopathy. Tracheal optimize medical therapy including beta mason and RONA inhibitor statin and aspirin. DATE: 01/06/14 1313 ASSESSMENT/PLAN ASSESSMENT/PLAN 1. Atypical chest pain: likely referred pain from esophageal issues, namely achalasia, spasm. Noncardiac 2. Coagulopathy: INR 8.5 on coumadin. Due to pt confused dosing 3. AICD in situ: (OrangeHRMtronic), normal function and has been on AFIB since 01/2019 4. Hx of NICM: compensated. NYHA 1-2. Recovered EF at 60-65% 5. PAFIB: paced with underlying AFIB, rate controlled 5. HLP 6. s/p AAA, s/p Iliac artery aneurysm repair. Stable. 7. COPD: controlled 8. Known for orthostasis 9. Recently diagnosed seizures 10. Recent PE: about 6 month ago per daughter 11. Nontraumatic fall: 3 weeks ago, r/t to seizure Recommendations 1. Continue with secondary prevention 2. Hold coumadin. Vit K given. Would be ideal to go back on xarelto (did not take it due to cost) rather than coumadin. Given his PE episode he will will still need to be on anticoagulation 3. Will check Dig level. It is unclear if he is taking sotalol or amiodarone. Will need to clarify if he is taking either sotalol or amiodarone or has stopped taking it. At this time will restart amiodarone. 4. Continue with secondary prevention. Check orthostatic readings. 5. Monitor rhythm overnight, supportive care. Otherwise would defer to GI as he still having sensation of prolonged sensation of solid food getting stuck after swallowing. CRYSTAL BAUTISTA MANAGING JEWELER Jul 06, 2019 16:46
[2019-07-06 16:58] LABS: DIG 1.5 ng/mL (0.9-2.0)
[2019-07-06] MEDS: DIGOXIN 125 MCG TABLET. PO SCH (17:43)
[2019-07-06] MEDS: oxyCODONE IR 5 MG TABLET PO PRN (17:44)
[2019-07-06] MEDS: AMIODARONE HCL 200 MG TABLET. PO SCH (17:44)
[2019-07-06] MEDS: ASPIRIN CHEWABLE 81 MG TABLET. PO SCH (17:44)
[2019-07-06] MEDS ORDERED: ACETAMINOPHEN 325 MG TABLET. PO PRN (17:45)
[2019-07-06] MEDS: MIDODRINE 2.5 MG TABLET PO SCH (17:46)
[2019-07-06] MEDS: BUDESONIDE 0.5 MG/2 ML NEBU. NEB SCH (19:44)
[2019-07-06] MEDS: IPRATRPIUM/ALBUTEROL 0.5/2.5MG 3 ML NEBU. NEB SCH (19:44)
[2019-07-06] MEDS: MONTELUKAST SODIUM 10 MG TABLET. PO SCH (20:43)
[2019-07-06] MEDS: TAMSULOSIN 0.4 MG CAP.ER.24H. PO SCH (20:43)
[2019-07-06] MEDS: SIMVASTATIN 20 MG TABLET PO SCH (20:43)
[2019-07-06] MEDS: traZODone 100 MG TABLET. PO SCH (20:44)
[2019-07-06] MEDS: GABAPENTIN 300 MG CAPSULE. PO SCH (20:44)
[2019-07-06] MEDS: levETIRAcetam 500 MG TABLET PO SCH (20:44)
[2019-07-06] MEDS ORDERED: NON FORMULARY ITEM (Fluticasone/Salmeterol (Advair 250-50 Diskus) 1 PUFF) IH SCH (21:00)
[2019-07-07 03:00] VITALS: BP 117/68
[2019-07-07] MEDS: oxyCODONE IR 5 MG TABLET PO PRN ×2 (05:32→21:41)
[2019-07-07] MEDS: MIDODRINE 2.5 MG TABLET PO SCH ×4 (05:33→21:40)
[2019-07-07 07:00] VITALS: BP 109/70
[2019-07-07] MEDS: IPRATRPIUM/ALBUTEROL 0.5/2.5MG 3 ML NEBU. NEB SCH ×4 (07:20→19:37)
[2019-07-07] MEDS: BUDESONIDE 0.5 MG/2 ML NEBU. NEB SCH ×2 (07:21→19:37)
[2019-07-07] MEDS: DIGOXIN 125 MCG TABLET. PO SCH (08:04)
[2019-07-07] MEDS: GABAPENTIN 300 MG CAPSULE. PO SCH ×3 (08:04→21:40)
[2019-07-07] MEDS: MAGNESIUM OXIDE 400 MG TABLET PO SCH (08:04)
[2019-07-07] MEDS: IRON POLYSACCHARIDE COMPLEX 150 MG CAPSULE PO SCH (08:04)
[2019-07-07] MEDS: AMIODARONE HCL 200 MG TABLET. PO SCH (08:04)
[2019-07-07] MEDS: ASPIRIN CHEWABLE 81 MG TABLET. PO SCH (08:05)
[2019-07-07] MEDS: PANTOPRAZOLE 40 MG TABLET.DR. PO SCH (08:05)
[2019-07-07] MEDS: levETIRAcetam 500 MG TABLET PO SCH ×2 (08:05→21:40)
[2019-07-07] MEDS: FLUDROCORTISONE 0.1 MG TABLET PO SCH (08:05)
[2019-07-07 10:40] LABS: PROTHROMBIN TIME PATIENT 26.3 SEC (11.7-14.0)
[2019-07-07 11:00] VITALS: BP 91/59
--- NOTE | 2019-07-07 14:32 | PDOC ---
CARDIO Progress Notes Date and Time Date of Service 07/07/2019 Time of Evaluation 1420 Subjective Subjective: No Chest Pain, No shortness of breath, No Palpitations Vitals Vitals Vital Signs Date Time Temp Pulse Resp B/P (MAP) Pulse Ox O2 Delivery O2 Flow Rate FiO2 07/07/19 13:27 69 91/59 07/07/19 11:35 95 Room Air 07/07/19 11:00 98.6 16 98.6 Weight Weight [ ] Input and Output Intake and Output Intake and Output 07/07/19 07:00 Intake Total 890 ml Output Total 525 ml Balance 365 ml Intake Oral 890 ml Output Urine Total 525 ml # Voids 1 # Bowel Movements 1 Laboratory Labs Laboratory Tests Test 07/06/19 15:55 07/06/19 19:09 07/07/19 10:10 Troponin I Quantitative < 0.017 ng/mL (0.000-0.055) < 0.017 ng/mL (0.000-0.055) Thyroid Stimulating Hormone (TSH) 0.204 uIU/mL (0.358-3.74) Digoxin Level 1.5 ng/mL (0.9-2.0) Digoxin Last Dose Date Unk Digoxin Last Dose Time Unk Prothrombin Time 26.3 SEC (11.7-14.0) Prothromb Time International Ratio 2.4 (0.8-1.1) Physical Exam HEENT: Neck Supple W Full Motion Chest: Symmetric LUNGS: Clear to Auscultation Heart: S1S2, RRR (paced with underlying afib) Abdomen: Soft N/T Extremities: No Calf Tenderness Neurology: alert, oriented, follow commands Assessment Assessment 1. Atypical chest pain: likely referred pain from esophageal issues, namely achalasia, spasm. Noncardiac 2. Coagulopathy: INR 8.5 on coumadin. Due to pt confused dosing. 3. AICD in situ: (Medtronic), normal function and has been on AFIB since 01/2019 4. Hx of NICM: compensated. NYHA 1-2. Recovered EF at 60-65% 5. PAFIB: paced with underlying AFIB, rate controlled 5. HLP 6. s/p AAA, s/p Iliac artery aneurysm repair. Stable. 7. COPD: controlled 8. Known for orthostasis: remains but mild with no symptoms. 9. Recently diagnosed seizures 10. Recent PE: about 6 month ago per daughter 11. Nontraumatic fall: 3 weeks ago, r/t to seizure Recommendations 1. Continue with secondary prevention 2. Hold coumadin.INR now at 2.4 post Vit K. Would be ideal to go back on xarelto (did not take it due to cost) rather than coumadin. Given his PE episode he will will still need to be on anticoagulation 3. Again it is unclear if he is taking sotalol or amiodarone. I discussed with RN to clarify his meds with family today. Will continue amiodarone for now otherwise this would be a failed therapy and will at least on BB for rate controlling agent 4. Would refer to GI as he still having sensation of prolonged sensation of solid food getting stuck after swallowing. 5. Continue with home health CRYSTAL BAUTISTA APRN Jul 07, 2019 14:32
[2019-07-07 15:25] VITALS: BP 117/71
--- NOTE | 2019-07-07 17:38 | PDOC ---
PROGRESS NOTES Subjective TSH suppressed, Afib persists, chest pain persists but normal cardiac work up, PPM functioning, he is up with 1 person assist, no seizure activity Objective Afebrile General: A&O Heart: mostly paced, Afib per monitor Lungs: clear Abd: soft Ext: no C/C/E Vital Signs Vital Signs Date Time Temp Pulse Resp B/P (MAP) Pulse Ox O2 Delivery O2 Flow Rate FiO2 07/07/19 16:11 97 Room Air 07/07/19 15:25 98.0 69 16 117/71 (86) 98.0 I & O Intake and Output0 07/07/19 06:59 Intake Total 890 ml Output Total 525 ml Balance 365 ml Intake Oral 890 ml Output Urine Total 525 ml # Voids 1 # Bowel Movements 1 Assessment and Plan Problems Medical Problems: (1) Chest pain Status: Acute (2) COPD (chronic obstructive pulmonary disease) Status: Chronic (3) Coumadin toxicity Status: Acute (4) Elevated brain natriuretic peptide (BNP) level Status: Acute chest pain- hx of CAD, afib - cardiology consult coagulopathy - INR 8.0 but now down to 2.5 after oral vitamin K, no active bleeding - resume dizziness - fall risk lumbar spinal stenosis - previously seen by Dr. Frausto, PT/OT, pain control prior CVA with encephalomalacia - he has been irritable and unwelcoming to HH assistance but granddaughter now DPOA recent seizure - Keppra started last week Hazel MEADOWS MD Jul 07, 2019 17:38
--- NOTE | 2019-07-07 17:55 | NUR ---
Pharmacy Warfarin Dosing Note S:Pharmacy consulted to assist with anticoagulation therapy started 07/07/19 with target INR: 2 -3 O:MINOR,GENIA Chandler is a 79 year old M with Atrial Fibrillation LABS: Last INR: 2.4 Last HGB: Last HCT: Last PLT: Last dose of Hold given on 07/06/19 at Previous Regimen: Vitamin K given: Y PO VIT K FOR INR 8.5 07/06 Drug Interaction Changes: Ongoing Drug Interactions: A:INR of 2.4 is within desired range. Target range for this patient is: 2 -3 P: Warfarin dose: 4 mg Today at 1600 Bridge Therapy: Next INR due IN AM Pharmacy anticoagulation service will continue to follow. BINA DEVLIN [facility], 07/07/19 [id number]
[2019-07-07] MEDS ORDERED: WARFARIN 4 MG TABLET. PO ONE (18:00)
[2019-07-07 19:00] VITALS: BP 101/59
[2019-07-07] MEDS: TAMSULOSIN 0.4 MG CAP.ER.24H. PO SCH (21:39)
[2019-07-07] MEDS: traZODone 100 MG TABLET. PO SCH (21:39)
[2019-07-07] MEDS: MONTELUKAST SODIUM 10 MG TABLET. PO SCH (21:39)
[2019-07-07] MEDS: SIMVASTATIN 20 MG TABLET PO SCH (21:40)
[2019-07-07 23:00] VITALS: BP 102/63
[2019-07-08 03:00] VITALS: BP 105/68
[2019-07-08 05:26] LABS: PROTHROMBIN TIME PATIENT 27.1 SEC (11.7-14.0)
[2019-07-08 06:04] LABS: FREE T4 1.33 ng/dL (0.76-1.46)
[2019-07-08 07:03] VITALS: BP 110/65
[2019-07-08] MEDS: BUDESONIDE 0.5 MG/2 ML NEBU. NEB SCH (07:10)
[2019-07-08] MEDS: IPRATRPIUM/ALBUTEROL 0.5/2.5MG 3 ML NEBU. NEB SCH ×3 (07:10→15:33)
[2019-07-08] MEDS: PANTOPRAZOLE 40 MG TABLET.DR. PO SCH (08:44)
[2019-07-08] MEDS: DIGOXIN 125 MCG TABLET. PO SCH (08:44)
[2019-07-08] MEDS: ASPIRIN CHEWABLE 81 MG TABLET. PO SCH (08:44)
[2019-07-08] MEDS: oxyCODONE IR 5 MG TABLET PO PRN (08:44)
[2019-07-08] MEDS: AMIODARONE HCL 200 MG TABLET. PO SCH (08:45)
[2019-07-08] MEDS: FLUDROCORTISONE 0.1 MG TABLET PO SCH (08:45)
[2019-07-08] MEDS: IRON POLYSACCHARIDE COMPLEX 150 MG CAPSULE PO SCH (08:45)
[2019-07-08] MEDS: levETIRAcetam 500 MG TABLET PO SCH (08:45)
[2019-07-08] MEDS: GABAPENTIN 300 MG CAPSULE. PO SCH ×2 (08:45→13:21)
[2019-07-08] MEDS: MAGNESIUM OXIDE 400 MG TABLET PO SCH (08:45)
--- NOTE | 2019-07-08 10:05 | NUR ---
Pharmacy Warfarin Dosing Note S:Pharmacy consulted to assist with anticoagulation therapy started 07/07/19 with target INR: 2 -3 O:MINOR,GENIA Chandler is a 79 year old M with Atrial Fibrillation LABS: Last INR: 2.5 Last HGB: 13.3 Last HCT: 41.2 Last PLT: 231 Last dose of 4 mg given on 07/07/19 at 1835 Previous Regimen: Home regimen of 5/6/4 mg alternating. Vitamin K given: Y PO VIT K FOR INR 8.5 07/06 Drug Interaction Changes: Same Interacting Drug Ongoing Drug Interactions: Amiodarone, ASA A:INR of 2.5 is within desired range. Target range for this patient is: 2 -3 P: Warfarin dose: 4 mg Today at 1600 Bridge Therapy: NA Next INR due 07/09/19 Pharmacy anticoagulation service will continue to follow. GIANA RUTH, [facility], 07/08/19 [id number]
[2019-07-08 10:12] VITALS: BP 111/70
--- NOTE | 2019-07-08 12:07 | NUR ---
SW following pt for dc planning. Chart reviewed and Pt lives at home with daughter. PT/OT recommends SNU. MARY KAY spoke with pt at bedside and discussed options/insurance coverage. Pt declined SNU even after some encouragement and agreeable with [facility]. Pt requested SW to speak with his daughter regarding options. MARY KAY spoke with Desiree, phone: [phone] and Desiree reported pt has been on home health services but did not know the name. Pt's daughter provided SWer with a phone number to pt's nurse. MARY KAY spoke with pt's Nurse and Pt is on service with [facility]. Per daughter, pt has been refusing to work with PT/OT at home and has been receiving RN services only. MARY KAY discussed pt might need encouragement from family regarding working with therapy. Plan 1. MARY KAY phoned and faxed clinicals to [facility], phone: [phone], fax: [phone]. Resumption orders will need to be faxed upon dc. 2. Supportive counseling, 3. Discussed with RN, anticipate pt will dc home with home health services upon dc. Addendum: 07/08/19 at 1338 by FANNY MUÑIZ Orders faxed to [facility] and discussed with Intake team. 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 Discussed with RN.
[2019-07-08] MEDS ORDERED: TAMS0.4C97 PO (13:19)
[2019-07-08] MEDS ORDERED: LEVE500T56 PO (13:19)
[2019-07-08] MEDS ORDERED: GABA300C18 PO (13:19)
[2019-07-08] MEDS ORDERED: FLUD0.1T PO (13:19)
[2019-07-08] MEDS ORDERED: WARF4TAB68 PO (13:19)
[2019-07-08] MEDS ORDERED: WARF10TA45 MC (13:19)
[2019-07-08] MEDS: MIDODRINE 2.5 MG TABLET PO SCH ×2 (13:21→17:40)
--- NOTE | 2019-07-08 13:22 | SNU/HH DC ---
DISCHARGE WITH HOME HEALTH DISCHARGE INFORMATION: Discharge Date: Jul 08, 2019 Final Diagnosis: Problems Medical Problems: (1) Chest pain Status: Acute (2) COPD (chronic obstructive pulmonary disease) Status: Chronic (3) Coumadin toxicity Status: Acute (4) Elevated brain natriuretic peptide (BNP) level Status: Acute Condition on Discharge: Stable CODE STATUS: Code Status: Full HOME HEALTH: Face to Face: I certify this patient is under my care and that I, or a nurse practitioner or physician's content assistant working with me, had a face to face encounter that meets the physician face to face encounter requirements with this patient on 07/08/19. RN For Eval/Treatment: Yes (meds, INR ) Physical Therapy For: Evalulation/Treatment Occupational Therapy For: Evaluation/Treatment Pt Meets Homebound Status: Poor coordination w/ amb., Unsteady balance w/ amb,, Fatigue w/ amb., Frequent falls w/ injury, Limited distance walking POST DISCHARGE ORDERS: Activity Instructions for Disc: Activity as tolerated Weight Bearing Status after Di: No restrictions Bathing Instructions: No Tub Bath until see DIET AFTER DISCHARGE: Cardiac Wound/Incision Care: No wound care needed CHECKS AFTER DISCHARGE: Checks after discharge: Check blood press - daily, Check your Temp as needed, Weigh Yourself Daily FOLLOW-UP: PCP to follow Home Health: 1-2 weeks TREATMENT/EQUIPMENT ORDERS: Adaptive Equipment Issued: None CERTIFICATION STATEMENT: Certification Statement: Certification Statement: Based on the above finding, I certify that this patient is confined to the home and needs intermittent half-way care, physical therapy and/or speech therapy, or continues to need occupational therapy.~ This patient is under my care, and I have initiated the establishment of the plan of care.~ This patient will be followed by myself or a community physician who will periodically review the plan of care. Home Meds Active Scripts Fludrocortisone Acetate (FLUDROCORTISONE ACETATE) 0.1 Mg Tablet, 0.1 MG PO DAILY for BP for 30 Days, #30 TAB Prov:Hazel MEADOWS MD 07/08/19 Levetiracetam (KEPPRA) 500 Mg Tablet, 500 MG PO BID for seizure for 30 Days, #60 TAB Prov:Hazel MEADOWS MD 07/08/19 Gabapentin (GABAPENTIN) 300 Mg Capsule, 300 MG PO TID for neuropathy for 90 Days, #270 CAP Prov:Hazel MEADOWS MD 07/08/19 Warfarin Sodium (COUMADIN) 10 Mg Tablet, 1 EACH MC PRN DAILY PRN for SEE COMMENTS for 30 Days, #30 TAB Prov:Hazel MEADOWS MD 07/08/19 Warfarin Sodium (COUMADIN) 4 Mg Tablet, 4 MG PO 1X WARF for thin blood for 30 Days, #30 TAB Prov:Hazel MEADOWS MD 07/08/19 Tamsulosin Hcl (FLOMAX) 0.4 Mg Cap.er.24h, 0.4 MG PO QHS for prostate for 30 Days, #30 CAP.SR Prov:Hazel MEADOWS MD 07/08/19 Montelukast Sodium (MONTELUKAST SODIUM TABLET ) 10 Mg Tablet, 10 MG PO QHS for lungs for 30 Days, #30 TAB 11 Refills Prov:Hazel MEADOWS MD 01/30/19 Fluticasone/Salmeterol (ADVAIR 250-50 DISKUS) 1 Each Disk.w.dev, 1 PUFF IH BID for lungs, #1 INHALER 5 Refills Prov:Hazel MEDAOWS MD 01/30/19 Amiodarone Hcl (AMIODARONE HCL) 200 Mg Tablet, 200 MG PO DAILY for afib for 30 Days, #30 TAB 11 Refills Prov:Hazel MEADOWS MD 01/30/19 Midodrine Hcl (MIDODRINE HCL) 2.5 Mg Tablet, 2.5 MG PO [id number] for orthostasis for 30 Days, #90 TAB 5 Refills Prov:Hazel MEADOWS MD 01/30/19 Ipratropium/Albuterol Sulfate (DUONEB 0.5-3(2.5) MG/3 ML) 3 Ml Ampul.neb, 3 ML NEB RTQID for copd for 30 Days, #120 EACH Prov:YUMIKO WILKINSON MD 11/05/18 [Pantoprazole] 40 MG TABLET.DR Shields Conflict Check, 40 MG PO DAILYAC for 30 Days, #30 1 Refill Prov:RENE MOON MD 08/23/18 Albuterol Sulfate (PROAIR HFA INHALER) 8.5 Gm Hfa.aer.ad, 1 PUFF INH PRN Q6HRS PRN for SHORTNESS OF BREATH, #1 INHALER 0 Refills Prov:JULISSA BARRAZA MD 07/01/18 Reported Medications Magnesium Oxide (MAG-OXIDE) 400 Mg Tablet, 400 MG PO DAILY for supplement 04/05/19 Trazodone Hcl (TRAZODONE HCL) 100 Mg Tablet, 100 MG PO QHS for sleep 12/10/18 Oxycodone Hcl (OXYCODONE HCL) 20 Mg Tablet, 20 MG PO TID PRN PRN for PAIN 12/10/18 Simvastatin (SIMVASTATIN) 20 Mg Tablet, 1 TAB PO QHS 10/18/14 Digoxin (DIGOXIN) 125 Mcg Tablet, 125 MCG PO DAILY 01/29/14 Discontinued Scripts Aspirin (ASPIRIN) 81 Mg Tab.chew, 1 TAB PO DAILY for thin blood, #90 TAB 3 R efills Prov:Hazel MEADOWS MD 01/30/19 Iron Polysaccharides Complex (POLY-IRON) 150 Mg Capsule, 150 MG PO DAILY for anemia for 30 Days, #30 CAP 2 Refills Prov:Hazel MEADOWS MD 01/30/19 Sotalol Hcl (BETAPACE) 80 Mg Tablet, 40 MG PO BID for afib for 30 Days, #30 TAB Prov:YUMIKO WILKINSON MD 11/05/18 Hazel MEADOWS MD Jul 08, 2019 13:22
[2019-07-08 14:22] VITALS: BP 119/68
[2019-07-08] MEDS ORDERED: WARFARIN 4 MG TABLET. PO ONE (16:00)
--- NOTE | 2019-07-08 16:45 | PDOC3 ---
Discharge Summary [facility] Date of Admission: Jul 06, 2019 Discharge Date: Jul 08, 2019 Admitting Diagnosis chest pain Final Diagnosis Problems Medical Problems: (1) Chest pain Status: Acute (2) COPD (chronic obstructive pulmonary disease) Status: Chronic (3) Coumadin toxicity Status: Acute (4) Elevated brain natriuretic peptide (BNP) level Status: Acute CONSULTS cardiology Procedures none Brief Hospital Course Mr. Sterling is a 79 old who presented with: chest pain- hx of CAD, afib - cardiology consulted and no acute coronary issues identified and pain felt to be due to GI origin, continue dig, amiodarone but stop sotolol for now coagulopathy - INR 8.0 but now down to 2.5 after oral vitamin K, no active bleeding - resumed warfarin at 4 mg daily dizziness - fall risk -PT/OT recommended SNU but patient declined and will resume HH but he is encouraged to let in the therapists and work with them lumbar spinal stenosis - previously seen by Dr. Frausto, PT/OT, pain control prior CVA with encephalomalacia - he has been irritable and unwelcoming to HH assistance but granddaughter now DPOA recent seizure - Keppra started last week Patient History: FH: colon cancer 32 MOTHER FH: spina bifida G8 DAUGHTER Heart attack 33 FATHER Obesity G8 DAUGHTER Disposition home with CONDITION AT DISCHARGE: Improved, Stable Diet GI soft, cardiac Scheduled Amiodarone Hcl (Amiodarone Hcl), 200 MG PO DAILY Digoxin (Digoxin), 125 MCG PO DAILY, (Reported) Fludrocortisone Acetate (Fludrocortisone Acetate), 0.1 MG PO DAILY Fluticasone/Salmeterol (Advair 250-50 Diskus), 1 PUFF IH BID Gabapentin (Gabapentin), 300 MG PO TID Ipratropium/Albuterol Sulfate (Duoneb 0.5-3(2.5) Mg/3 Ml), 3 ML NEB RTQID Levetiracetam (Keppra), 500 MG PO BID Magnesium Oxide (Mag-Oxide), 400 MG PO DAILY, (Reported) Midodrine Hcl (Midodrine Hcl), 2.5 MG PO [id number] Montelukast Sodium (Montelukast Sodium Tablet ), 10 MG PO QHS Simvastatin (Simvastatin), 1 TAB PO QHS, (Reported) Tamsulosin Hcl (Flomax), 0.4 MG PO QHS Trazodone Hcl (Trazodone Hcl), 100 MG PO QHS, (Reported) Warfarin Sodium (Coumadin), 4 MG PO 1X WARF [Pantoprazole], 40 MG PO DAILYAC Scheduled PRN Albuterol Sulfate (Proair Hfa Inhaler), 1 PUFF INH PRN Q6HRS PRN for SHORTNESS OF BREATH Oxycodone Hcl (Oxycodone Hcl), 20 MG PO TID PRN PRN for PAIN, (Reported) Discontinued Medications Aspirin (Aspirin), 1 TAB PO DAILY Iron Polysaccharides Complex (Poly-Iron), 150 MG PO DAILY Sotalol Hcl (Betapace), 40 MG PO BID Follow Up 1-2 weeks Hazel MEADOWS MD Jul 08, 2019 16:45
--- NOTE | 2019-07-08 17:17 | PDOC ---
PROGRESS NOTES Subjective Subjective Patient seen and examined Objective Objective Vital Signs Date Time Temp Pulse Resp B/P (MAP) Pulse Ox O2 Delivery O2 Flow Rate FiO2 07/08/19 15:34 96 Room Air 07/08/19 14:22 98.9 69 12 119/68 (85) 98.9 Intake and Output 07/08/19 07:00 Intake Total 220 ml Balance 220 ml Intake Oral 220 ml Physical Exam Abdomen: Normal bowel sounds Heart: Regular rate, Other (irreg.) General: mild distress Lungs: Clear to auscultation Assessment Assessment Problems Medical Problems: (1) Chest pain Status: Acute (2) COPD (chronic obstructive pulmonary disease) Status: Chronic (3) Coumadin toxicity Status: Acute (4) Elevated brain natriuretic peptide (BNP) level Status: Acute Atypical chest pain. Most consistent with GI pain. No evidence of acute ischemia. Coagulopathy. INR improved. Anticoagulation as per the primary service. Resolved nonischemic cardiomyopathy. Continue present medications. AICD. Normal functioning. Chronic atrial fibrillation. Rate controlled. Anticoagulation as above. History of AAA and iliac artery aneurysm repair. Reported recent PE approximate 6 months ago. Anticoagulation as above. Comment Review of Relevant I have reviewed the following items mckayla (where applicable) has been applied. Labs Laboratory Tests Test 07/06/19 19:09 07/07/19 10:10 07/08/19 04:30 Troponin I Quantitative < 0.017 ng/mL (0.000-0.055) Prothrombin Time 26.3 SEC (11.7-14.0) 27.1 SEC (11.7-14.0) Prothromb Time International Ratio 2.4 (0.8-1.1) 2.5 (0.8-1.1) Free Thyroxine 1.33 ng/dL (0.76-1.46) Free Triiodothyronine (T3) pg/mL 1.62 pg/mL (2.18-3.98) Laboratory Tests Test 07/08/19 04:30 Prothrombin Time 27.1 SEC (11.7-14.0) Prothromb Time International Ratio 2.5 (0.8-1.1) Free Thyroxine 1.33 ng/dL (0.76-1.46) Free Triiodothyronine (T3) pg/mL 1.62 pg/mL (2.18-3.98) Medications Current Medications Fentanyl Citrate (Fentanyl 2ml Vial) 50 mcg 1X ONCE IV ; Start 07/06/19 at 12:15; Stop 07/06/19 at 12:16; Status DC Phytonadione (Mephyton Oral Soln) 10 mg 1X ONCE PO Last administered on 07/06at 12:23; Start 07/06/19 at 12:30; Stop 07/06/19 at 12:31; Status DC Aspirin (Children'S Aspirin) 81 mg DAILY PO Last administered on 07/08/19 08:47; Start 07/06/19 at 17:00 Digoxin (Lanoxin) 125 mcg DAILY PO Last administered on 07/08/19 08:47; Start 07/06/19 at 17:00 Midodrine (Proamatine) 2.5 mg [id number] PO Last administered on 07/08/19 13:21; Start 07/06/19 at 18:00 Simvastatin (Zocor) 20 mg QHS PO Last administered on 07/07/19 21:41; Start 07/06/19 at 21:00 Amiodarone HCl (Cordarone) 200 mg DAILY PO Last administered on 07/08/19 08:47; Start 07/06/19 at 17:00 Albuterol/ Ipratropium (Duoneb) 3 ml RTQID NEB Last administered on 07/08/19 15:33; Start 07/06/19 at 20:00 Polysaccharide Iron Complex (Niferex 150) 150 mg DAILY PO Last administered on 07/08/19 08:47; Start 07/07/19 at 09:00 Magnesium Oxide (Magnesium Oxide) 400 mg DAILY PO Last administered on 07/08/19 08:47; Start 07/07/19 at 09:00 Montelukast Sodium (Singulair) 10 mg QHS PO Last administered on 07/07/19 21:41; Start 07/06/19 at 21:00 Trazodone HCl (Desyrel) 100 mg QHS PO Last administered on 07/07/19 21:41; Start 07/06/19 at 21:00 Non-Formulary Medication (Fluticasone/ Salmeterol (Advair 250-50 Diskus)) 1 puff BID IH ; Start 07/06/19 at 21:00; Status UNV Oxycodone HCl (Roxicodone) 20 mg PRN TID PRN PO MODERATE TO SEVERE PAIN Last administered on 07/08/19 08:47; Start 07/06/19 at 17:45 Pantoprazole Sodium (Protonix) 40 mg DAILYAC PO Last administered on 07/08/19 08:47; Start 07/07/19 at 07:30 Levetiracetam (Keppra) 500 mg BID PO Last administered on 07/08/19 08:47; Start 07/06/19 at 21:00 Fludrocortisone Acetate (Florinef) 0.1 mg DAILY PO Last administered on 07/08/19 08:47; Start 07/07/19 at 09:00 Tamsulosin HCl (Flomax) 0.4 mg QHS PO Last administered on 07/07/19 21:41; Start 07/06/19 at 21:00 Gabapentin (Neurontin) 300 mg TID PO Last administered on 07/08/19 13:21; Start 07/06/19 at 21:00 Acetaminophen (Tylenol) 325 mg PRN Q6HRS PRN PO MILD PAIN / TEMP; Start 07/06/19 at 17:45 Budesonide (Pulmicort) 0.5 mg RTBID NEB Last administered on 07/08/19 07:10; Start 07/06/19 at 20:00 Warfarin Sodium (Coumadin Per Pharmacy) 1 each PRN DAILY PRN MC SEE COMMENTS Last administered on 07/08/19 10:04; Start 07/07/19 at 17:45 Warfarin Sodium (Coumadin) 4 mg 1X WARF ONCE PO Last administered on 07/07/19 18:35; Start 07/07/19 at 18:00; Stop 07/07/19 at 18:01; Status DC Warfarin Sodium (Coumadin) 4 mg 1X WARF ONCE PO Last administered on 07/08/19 16:44; Start 07/08/19 at 16:00; Stop 07/08/19 at 16:01; Status DC Active Scripts Active Fludrocortisone Acetate 0.1 Mg Tablet 0.1 Mg PO DAILY 30 Days Keppra (Levetiracetam) 500 Mg Tablet 500 Mg PO BID 30 Days Gabapentin 300 Mg Capsule 300 Mg PO TID 90 Days Coumadin (Warfarin Sodium) 4 Mg Tablet 4 Mg PO 1X WARF 30 Days Flomax (Tamsulosin Hcl) 0.4 Mg Cap.er.24h 0.4 Mg PO QHS 30 Days Montelukast Sodium Tablet (Montelukast Sodium) 10 Mg Tablet 10 Mg PO QHS 30 Days Advair 250-50 Diskus (Fluticasone/Salmeterol) 1 Each Disk.w.dev 1 Puff IH BID Amiodarone Hcl 200 Mg Tablet 200 Mg PO DAILY 30 Days Midodrine Hcl 2.5 Mg Tablet 2.5 Mg PO [id number] 30 Days Duoneb 0.5-3(2.5) Mg/3 Ml (Albuterol/Ipratropium) 3 Ml Ampul.neb 3 Ml NEB RTQID 30 Days [Pantoprazole] 40 MG Tablet.dr 40 Mg PO DAILYAC 30 Days Proair Hfa Inhaler (Albuterol Sulfate) 8.5 Gm Hfa.aer.ad 1 Puff INH PRN Q6HRS PRN Reported Mag-Oxide (Magnesium Oxide) 400 Mg Tablet 400 Mg PO DAILY Trazodone Hcl 100 Mg Tablet 100 Mg PO QHS Oxycodone Hcl 20 Mg Tablet 20 Mg PO TID PRN PRN Simvastatin 20 Mg Tablet 1 Tab PO QHS Digoxin 125 Mcg Tablet 125 Mcg PO DAILY Vitals/I & O Vital Sign - Last 24 Hours 07/07/19 07/07/19 07/07/19 07/07/19 17:43 19:00 19:38 19:39 Temp 98.2 98.2 Pulse 69 71 Resp 16 B/P (MAP) 117/71 101/59 (73) Pulse Ox 100 97 97 O2 Delivery Room Air Room Air Room Air 07/07/19 07/07/19 07/07/19 07/07/19 20:00 21:41 21:41 22:54 Pulse 71 Resp 18 18 B/P (MAP) 101/59 Pulse Ox 97 97 O2 Delivery Room Air Room Air Room Air 07/07/19 07/08/19 07/08/19 07/08/19 23:00 03:00 07:03 07:12 Temp 98.6 98.0 98.5 98.6 98.0 98.5 Pulse 69 70 69 Resp 16 12 12 B/P (MAP) 102/63 (76) 105/68 (80) 110/65 (80) Pulse Ox 97 96 97 97 O2 Delivery Room Air Room Air Room Air Room Air 07/08/19 07/08/19 07/08/19 07/08/19 08:00 08:47 08:47 08:47 Pulse 71 71 B/P (MAP) 110/65 110/65 Pulse Ox 97 O2 Delivery Room Air Room Air 07/08/19 07/08/19 07/08/19 07/08/19 09:56 10:12 11:19 13:21 Temp 99.1 99.1 Pulse 69 69 Resp 12 B/P (MAP) 111/70 (84) 111/70 Pulse Ox 97 94 97 O2 Delivery Room Air Room Air Room Air 07/08/19 07/08/19 14:22 15:34 Temp 98.9 98.9 Pulse 69 Resp 12 B/P (MAP) 119/68 (85) Pulse Ox 93 96 O2 Delivery Room Air Room Air Intake and Output 0 07/07/19 07/07/19 07/08/19 15:00 23:00 07:00 Intake Total 100 ml 120 ml Balance 100 ml 120 ml RENATO SEO MD Jul 08, 2019 17:17
[2019-07-08 17:40] VITALS: BP 119/68
--- NOTE | 2019-07-08 18:17 | NUR ---
Discharge Note: GENIA MCKENZIE Discharge instructions and discharge home medications reviewed with Family Member and a copy given. All questions have been answered and understanding verbalized. The following instructions and handouts were given: warfarin, Keppra, tamsulosin, fludrocortisone Patient discharged to home w/services with family member via wheelchair
== END 2019-07-08 18:00 | disposition home health service (06) | DRG 392 ==
LOC: ER 10:38 → 2 NORTH 12:03
PROVIDERS: ADMIT Family Medicine; ATTEND Family Medicine
DX: K22.0 Achalasia of cardia (principal); D68.9 Coagulation defect, unspecified; I42.9 Cardiomyopathy, unspecified; R07.89 Other chest pain; T45.515A Adverse effect of anticoagulants, initial encounter; E78.00 Pure hypercholesterolemia, unspecified; E78.5 Hyperlipidemia, unspecified; F03.90 Unspecified dementia, unspecified severity, without behavioral disturbance, psychotic disturbance, mood disturbance, and anxiety; I11.0 Hypertensive heart disease with heart failure; I25.10 Atherosclerotic heart disease of native coronary artery without angina pectoris; I48.2 Chronic atrial fibrillation; I50.9 Heart failure, unspecified; J44.9 Chronic obstructive pulmonary disease, unspecified; K21.9 Gastro-esophageal reflux disease without esophagitis; M48.00 Spinal stenosis, site unspecified; Z86.711 Personal history of pulmonary embolism; Z86.79 Personal history of other diseases of the circulatory system; Z95.1 Presence of aortocoronary bypass graft; Z95.810 Presence of automatic (implantable) cardiac defibrillator; I69.398 Other sequelae of cerebral infarction; M48.061 Spinal stenosis, lumbar region without neurogenic claudication
CPT/HCPCS: 36415; 71045; 80053; 80162; 82550; 83690; 83735; 83880; 84439; 84443; 84481; 84484; 85025; 85610; 93005; 94640; 99406; J7620; J7626; 97535; 99291-25; G0378

== ENCOUNTER 2019-08-08 13:18 | Emergency (ER) | payer BC, MEDICARE ==
[~2019-08-08] VITALS: Ht 190.5 cm; Wt 68.0 kg
[~2019-08-08 13:18] MED LIST changes: +LEVE500T56 PO; +OMEP40CA45 PO; -OMEP40CA5 PO; +TAMS0.4C97 PO; +WARF10TA45 MC; +WARF4TAB68 PO
--- NOTE | 2019-08-08 14:08 | PHYS DOC ---
Past Medical History Past Medical History: A-Fib, Arrhythmia, Bronchitis, CHF, Constipation, COPD, CVA, GERD, GI Bleed, High Cholesterol, Hypertension, Hypotension, [place], Other Additional Past Medical Histor: PACEMAKER; AAA; PE; AFIB; BLE NEUROPATHY; ACALASIA; PROSTATE Past Surgical History: Coronary Bypass Surgery, Pacemaker Additional Past Surgical Histo: BACK SURGERY Alcohol Use: Rarely Drug Use: None Adult General Chief Complaint Chief Complaint: WEAKNESS/GENERALIZED HPI HPI 79-year-old male with underlying history of COPD, paroxysmal atrial fibrillation, hypertension, Parkinson's presents to the emergency department with complaints of weakness, cough, headache, constipation. He called his primary care physician today given his symptoms was asked to come to the em ergency department for further evaluation. Patient denies any nausea, vomiting, abdominal pain, fever. Generally just states he does not feel well. Nothing makes his symptoms worse, nothing makes his symptoms better. Review of Systems Review of Systems Constitutional: Denies fever or chills [] HENT: Denies nasal congestion or sore throat [] Respiratory: + cough Cardiovascular: No additional information not addressed in HPI [] GI: Denies abdominal pain, nausea, vomiting, bloody stools or diarrhea [] : Denies dysuria or hematuria [] Musculoskeletal: Denies back pain or joint pain [] Neurologic: Denies headache, focal weakness or sensory changes [] All other systems were reviewed and found to be within normal limits, except as documented in this note. Allergies Allergies Allergies Coded Allergies Type Severity Reaction Last Updated Verified Iodinated Contrast Media Allergy Severe anaphalaxis, short of air 03/04/19 Yes adhesive Allergy Severe PAINFUL SKIN IRRITATION 03/04/19 Yes latex Allergy Intermediate Hives 03/04/19 Yes Physical Exam Physical Exam Constitutional: Well developed, well nourished, no acute distress, non-toxic appearance. [] HENT: Normocephalic, atraumatic, bilateral external ears normal, oropharynx moist, no oral exudates, nose normal. [] Eyes: PERRLA, EOMI, conjunctiva normal, no discharge. [] Neck: Normal range of motion, no tenderness, supple, no stridor. [] Cardiovascular:Heart rate regular rhythm, no murmur [] Lungs & Thorax: Bilateral breath sounds clear to auscultation [] Abdomen: Bowel sounds normal, soft, no tenderness, no masses, no pulsatile masses. [] Skin: Warm, dry, no erythema, no rash. [] Extremities: No tenderness, no edema. [] Neurologic: Alert and oriented X 3, no focal deficits noted. [] Psychologic: Affect normal, judgement normal, mood normal. [] Current Patient Data Vital Signs Vital Signs Date Time Temp Pulse Resp B/P (MAP) Pulse Ox O2 Delivery O2 Flow Rate FiO2 08/08/19 14:02 98.5 85 20 143/83 (103) 96 98.5 Lab Values Laboratory Tests Test 08/08/19 14:05 08/08/19 14:17 08/08/19 15:10 White Blood Count 4.7 x10^3/uL (4.0-11.0) Red Blood Count 4.74 x10^6/uL (4.30-5.70) Hemoglobin 13.7 g/dL (13.0-17.5) Hematocrit 42.7 % (39.0-53.0) Mean Corpuscular Volume 90 fL (79-100) Mean Corpuscular Hemoglobin 29 pg (25-35) Mean Corpuscular Hemoglobin Concent 32 g/dL (31-37) Red Cell Distribution Width 24.6 % (11.5-14.5) H Platelet Count 138 x10^3/uL (140-400) L Neutrophils (%) (Auto) 69 % (31-73) Lymphocytes (%) (Auto) 15 % (24-48) L Monocytes (%) (Auto) 13 % (0-9) H Eosinophils (%) (Auto) 3 % (0-3) Basophils (%) (Auto) 1 % (0-3) Neutrophils # (Auto) 3.2 x10^3/uL (1.8-7.7) Lymphocytes # (Auto) 0.7 x10^3/uL (1.0-4.8) L Monocytes # (Auto) 0.6 x10^3/uL (0.0-1.1) Eosinophils # (Auto) 0.1 x10^3/uL (0.0-0.7) Basophils # (Auto) 0.1 x10^3/uL (0.0-0.2) Platelet Estimate Pending Sodium Level 142 mmol/L (136-145) Potassium Level 4.3 mmol/L (3.5-5.1) Chloride Level 104 mmol/L (98-107) Carbon Dioxide Level 31 mmol/L (21-32) Anion Gap 7 (6-14) Blood Urea Nitrogen 13 mg/dL (8-26) Creatinine 1.1 mg/dL (0.7-1.3) Estimated GFR (Cockcroft-Gault) 78.5 BUN/Creatinine Ratio 12 (6-20) Glucose Level 89 mg/dL (70-99) Calcium Level 8.3 mg/dL (8.5-10.1) L Total Bilirubin 0.4 mg/dL (0.2-1.0) Aspartate Amino Transferase (AST) 41 U/L (15-37) H Alanine Aminotransferase (ALT) 31 U/L (16-63) Alkaline Phosphatase 78 U/L (46-116) Total Protein 6.9 g/dL (6.4-8.2) Albumin 3.4 g/dL (3.4-5.0) Albumin/Globulin Ratio 1.0 (1.0-1.7) Lactic Acid Level 1.0 mmol/L (0.4-2.0) Urine Color Valeria Urine Clarity Clear Urine pH 5.5 Urine Specific [place] 1.020 Urine Protein Negative mg/dL (NEG-TRACE) Urine Glucose (UA) Negative mg/dL (NEG) Urine Ketones (Stick) Negative mg/dL (NEG) Urine Blood Negative (NEG) Urine Nitrite Negative (NEG) Urine Bilirubin Small (NEG) Urine Urobilinogen Dipstick 1.0 mg/dL (0.2 mg/dL) Urine Leukocyte Esterase Negative (NEG) Urine RBC 0 /HPF (0-2) Urine WBC Occ /HPF (0-4) Urine Squamous Epithelial Cells Occ /LPF Urine Bacteria Few /HPF (0-FEW) Urine Mucus Mod /LPF Laboratory Tests 08/08/19 14:05 Laboratory Tests 08/08/19 14:05 EKG EKG EKG reviewed, normal sinus rhythm, heart rate 77, normal axis. T-wave inversion appreciated be V3, V4, V5[] Interpretation Time: Interpretation time 1355 Radiology/Procedures Radiology/Procedures [facility] [address] [place] [address] IMAGING REPORT Signed PATIENT: GENIA MCKENZIE ACCOUNT: [id number] : 1940 LOCATION: ER AGE: 79 SEX: M EXAM STATUS: REG ER ORD. PHYSICIAN: JESSICA VELEZ MD REASON: weakness, cough,pt states trouble breathing. PROCEDURE: CHEST AP ONLY EXAM: Chest, single view. HISTORY: Weakness. Cough. COMPARISON: 07/06/2019 FINDINGS: A frontal view of the chest is obtained. There is no infiltrate, pleural effusion or pneumothorax. The heart is normal in size. There is a cardiac pacemaker defibrillator in expected position. IMPRESSION: No acute pulmonary finding. Electronically signed by: Roseanne Esparza MD (08/08/2019 2:51 PM) [facility] DICTATED and SIGNED BY: ROSEANNE ESPARZA MD DATE: 08/08/19 145 [] Course & Med Decision Making Course & Med Decision Making Pertinent Labs and Imaging studies reviewed. (See chart for details) []79-year-old male with underlying history of COPD, paroxysmal atrial fibrillation, hypertension, Parkinson's presents to the emergency department with complaints of weakness, cough, headache, constipation. He called his primary care physician today given his symptoms was asked to come to the emergency department for further evaluation. Patient denies any nausea, vomiting, abdominal pain, fever. Generally just states he does not feel well. Nothing makes his symptoms worse, nothing makes his symptoms better. Labs/Imaging reviewed Chest without acute process Lactic acid 1.0 UAD without acute infection Recommend dc home with follow up with PCP No findings for admit Continue home medications as scheduled Dragon Disclaimer Dragon Disclaimer This electronic medical record was generated, in whole or in part, using a voice recognition dictation system. Departure Departure Impression: Primary Impression: Weakness Disposition: HOME, SELF-CARE Condition: STABLE Referrals: Hazel MEADOWS MD (PCP) Patient Instructions: Weakness, [id number] Additional Instructions: Recommend follow up with PCP 3 - 5 days Return to the ER with worsening symptoms, intractable pain, fever, altered me ntal status Tylenol/Motrin as needed for pain No findings of infection at this time JESSICA VELEZ MD Aug 08, 2019 14:08
[2019-08-08 14:15] LABS: BASO # 0.1 x10^3/uL (0.0-0.2); BASO % 1 % (0-3); EOS # 0.1 x10^3/uL (0.0-0.7); EOS % 3 % (0-3); HEMATOCRIT 42.7 % (39.0-53.0); HEMOGLOBIN 13.7 g/dL (13.0-17.5); LYMPH # 0.7 x10^3/uL (1.0-4.8); LYMPH % 15 % (24-48); MEAN CORPUSCULAR HEMOGLOBIN 29 pg (25-35); MEAN CORPUSCULAR HGB CONC 32 g/dL (31-37); MEAN CORPUSCULAR VOLUME 90 fL (79-100); MONO # 0.6 x10^3/uL (0.0-1.1); MONO % 13 % (0-9); NEUT # 3.2 x10^3/uL (1.8-7.7); NEUT % 69 % (31-73); PLATELET COUNT 138 x10^3/uL (140-400); RED BLOOD COUNT 4.74 x10^6/uL (4.30-5.70); RED CELL DISTRIBUTION WIDTH 24.6 % (11.5-14.5); WHITE BLOOD COUNT 4.7 x10^3/uL (4.0-11.0)
[2019-08-08 14:24] LABS: CALCIUM 8.3 mg/dL (8.5-10.1); CREATININE 1.1 mg/dL (0.7-1.3); GFR 78.5; POTASSIUM 4.3 mmol/L (3.5-5.1)
[2019-08-08 14:30] LABS: ALBUMIN 3.4 g/dL (3.4-5.0); TOTAL BILIRUBIN 0.4 mg/dL (0.2-1.0); TOTAL PROTEIN 6.9 g/dL (6.4-8.2)
--- NOTE | 2019-08-08 14:54 | RAD ---
EXAM: Chest, single view. HISTORY: Weakness. Cough. COMPARISON: 07/06/2019 FINDINGS: A frontal view of the chest is obtained. There is no infiltrate, pleural effusion or pneumothorax. The heart is normal in size. There is a cardiac pacemaker defibrillator in expected position. IMPRESSION: No acute pulmonary finding. Electronically signed by: Roseanne Kitchen MD (08/08/2019 2:51 PM) [facility]
[2019-08-08 15:28] LABS: BILIRUBIN,URINE SMALL (NEG); CLARITY,URINE CLEAR; COLOR,URINE AMBER; NITRITE,URINE NEGATIVE (NEG); PH,URINE 5.5; PROTEIN,URINE NEGATIVE (NEG-TRACE)
[2019-08-08 15:48] LABS: BACTERIA,URINE FEW /HPF (0-FEW); RBC,URINE 0 /HPF (0-2); SQUAMOUS EPITHELIAL CELL,UR OCC /LPF; WBC,URINE OCC /HPF (0-4)
[2019-08-08 16:39] LABS: PROTHROMBIN TIME PATIENT 21.7 SEC (11.7-14.0)
[2019-08-08 16:50] VITALS: BP 148/83
[2019-08-08 17:56] LABS: ANISOCYTOSIS MOD; PLT ESTIMATE ADEQUATE (ADEQUATE); SCHISTOCYTES FEW
== END 2019-08-08 16:55 | disposition home or self-care (01) ==
LOC: ER 13:18
DX: R53.1 Weakness (principal); R05 Cough; R51 Headache; K59.00 Constipation, unspecified; I48.91 Unspecified atrial fibrillation; I11.0 Hypertensive heart disease with heart failure; I50.9 Heart failure, unspecified; J44.9 Chronic obstructive pulmonary disease, unspecified; K21.9 Gastro-esophageal reflux disease without esophagitis; E78.00 Pure hypercholesterolemia, unspecified; I25.2 Old myocardial infarction; Z86.73 Personal history of transient ischemic attack (TIA), and cerebral infarction without residual deficits; Z95.0 Presence of cardiac pacemaker; Z86.711 Personal history of pulmonary embolism; Z95.1 Presence of aortocoronary bypass graft; Z91.040 Latex allergy status; Z91.041 Radiographic dye allergy status; Z88.8 Allergy status to other drugs, medicaments and biological substances
CPT/HCPCS: 36415; 71045; 80053; 81001; 83605; 85025; 85610; 99285-25

== ENCOUNTER 2019-08-19 11:37 | Inpatient (IN) | payer MEDICARE, BC ==
[~2019-08-19] VITALS: Ht 190.5 cm; Wt 68.0 kg
[2019-08-19] MEDS: IV NORMAL SALINE 1000ML BAG 1,000 ML IV SCH ×2 (02:00→18:40)
[~2019-08-19 11:37] MED LIST changes: +SIMV20TA18 PO; -SIMV20TA3 PO
[2019-08-19] MEDS ORDERED: IV NORMAL SALINE 1000ML BAG 1,000 ML IV ONE (12:45)
--- NOTE | 2019-08-19 12:47 | RAD ---
PORTABLE CHEST 1V History: Near syncope Comparison: August 08, 2019 Findings: No consolidation or pleural effusion. Normal heart size. Left-sided pacemaker. No pneumothorax. Hyperinflation. Bilateral basilar pleural thickening. Impression: 1. Hyperinflation. 2. Otherwise, negative chest. Electronically signed by: Alfredo Almazan DO (08/19/2019 12:44 PM) [facility]
[2019-08-19 13:09] LABS: BASO # 0.1 x10^3/uL (0.0-0.2); BASO % 1 % (0-3); EOS # 0.2 x10^3/uL (0.0-0.7); EOS % 3 % (0-3); HEMATOCRIT 45.8 % (39.0-53.0); HEMOGLOBIN 14.8 g/dL (13.0-17.5); LYMPH # 0.6 x10^3/uL (1.0-4.8); LYMPH % 8 % (24-48); MEAN CORPUSCULAR HEMOGLOBIN 29 pg (25-35); MEAN CORPUSCULAR HGB CONC 32 g/dL (31-37); MEAN CORPUSCULAR VOLUME 90 fL (79-100); MONO # 0.5 x10^3/uL (0.0-1.1); MONO % 7 % (0-9); NEUT # 6.1 x10^3/uL (1.8-7.7); NEUT % 82 % (31-73); PLATELET COUNT 257 x10^3/uL (140-400); RED BLOOD COUNT 5.07 x10^6/uL (4.30-5.70); RED CELL DISTRIBUTION WIDTH 21.6 % (11.5-14.5); WHITE BLOOD COUNT 7.5 x10^3/uL (4.0-11.0)
--- NOTE | 2019-08-19 13:18 | RAD ---
PQRS Compliance Statement: One or more of the following individualized dose reduction techniques were utilized for this examination: 1. Automated exposure control 2. Adjustment of the mA and/or kV according to patient size 3. Use of iterative reconstruction technique CT HEAD WITHOUT CONTRAST History: Syncope. Comparison: CT head without contrast January 24, 2019. Technique: Axial images are obtained of the head from the skull base through the vertex without IV contrast. Findings: No mass-effect, midline shift, extra-axial fluid collection, hemorrhage, or obvious acute infarction is identified. Basilar cisterns are patent. The ventricles and sulci are prominent, consistent with age-related cerebral atrophy. There is supratentorial white matter hypoattenuation. This is a nonspecific finding but is commonly due to chronic small vessel ischemic disease. 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 Bone windows demonstrate no acute calvarial abnormality. There is opacity at the left external auditory canal. The visualized paranasal sinuses are clear. Mastoid air cells are well aerated. IMPRESSION: 1. No acute intracranial abnormality. 2. Mild cerebral atrophy and supratentorial white matter changes probably due to chronic small vessel ischemic disease. 3. 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 Electronically signed by: Isaac Ramos MD (08/19/2019 1:15 PM) [id number]
[2019-08-19 13:20] LABS: PROTHROMBIN TIME PATIENT 35.3 SEC (11.7-14.0)
[2019-08-19 13:22] LABS: CALCIUM 9.2 mg/dL (8.5-10.1); CREATININE 1.2 mg/dL (0.7-1.3); POTASSIUM 4.4 mmol/L (3.5-5.1)
--- NOTE | 2019-08-19 13:26 | PHYS DOC ---
Past Medical History Past Medical History: A-Fib, Arrhythmia, Bronchitis, CHF, Constipation, COPD, CVA, GERD, GI Bleed, High Cholesterol, Hypertension, Hypotension, CO, Other Additional Past Medical Histor: PACEMAKER; AAA; PE; AFIB; BLE NEUROPATHY; ACALASIA; PROSTATE Past Surgical History: Coronary Bypass Surgery, Pacemaker Additional Past Surgical Histo: BACK, lumbar fusion, cataract Alcohol Use: Rarely Drug Use: None Adult General Chief Complaint Chief Complaint: SYNCOPE HPI HPI Patient is a 79 year old male who presents via EMS with complaining of syncope. Patient states he didn't feel good for the last couple days and complaining of dizziness and generalized weakness without chest pain and focal neurodeficit. Patient was at his primary care physician office today for checking INR rega rding taking Coumadin after drying to promote felt dizzy and lightheaded and had the syncope that reported as a seizure activity by his doctor. EMS reported that patient did not have postictal condition and was alert and oriented. Patient had orthostatic hypotension with drop of blood pressure to 66 beats a standing up and IV fluid was started by EMS. Patient states he had the same problem previously and was admitted at Hospital for several days without abnormal finding. Patient denies chest pain, shortness of breath, headache, blurred vision, nausea and vomiting, diarrhea, urinary symptom. Review of Systems Review of Systems Constitutional: Denies fever or chills, reports generalized weakness Eyes: Denies change in visual acuity, redness, or eye pain [] HENT: Denies nasal congestion or sore throat [] Respiratory: Denies cough or shortness of breath [] Cardiovascular: No additional information not addressed in HPI [] GI: Denies abdominal pain, nausea, vomiting, bloody stools or diarrhea [] : Denies dysuria or hematuria [] Musculoskeletal: Denies back pain or joint pain [] Integument: Denies rash or skin lesions [] Neurologic: Denies headache, focal weakness or sensory changes [] Endocrine: Denies polyuria or polydipsia [] All other systems were reviewed and found to be within normal limits, except as documented in this note. Current Medications Current Medications Current Medications Medications (Trade) Dose Ordered Sig/Alma Rosa Start Time Stop Time Status Last Admin Dose Admin Sodium Chloride 1,000 ml @ 1,000 mls/hr 1X ONCE 08/19/19 12:45 08/19/19 13:44 DC 08/19/19 13:07 1,000 MLS/HR Allergies Allergies Allergies Coded Allergies Type Severity Reaction Last Updated Verified Iodinated Contrast Media Allergy Severe anaphalaxis, short of air 03/04/19 Yes adhesive Allergy Severe PAINFUL SKIN IRRITATION 03/04/19 Yes latex Allergy Intermediate Hives 03/04/19 Yes Physical Exam Physical Exam Constitutional: Well developed, mild distress, non-toxic appearance. [] HENT: Normocephalic, atraumatic. Eyes: PERRLA, EOMI, conjunctiva normal, no discharge. [] Neck: Normal range of motion, no tenderness, supple, no stridor. [] Cardiovascular: Irregularly irregular rhythm , no murmur [] Lungs & Thorax: Bilateral breath sounds clear to auscultation [] Abdomen: Bowel sounds normal, soft, no tenderness, no masses, no pulsatile ma sses. [] Skin: Warm, dry, no erythema, no rash. [] Back: No tenderness, no CVA tenderness. [] Extremities: No tenderness, no cyanosis, no clubbing, ROM intact, no edema. [] Neurologic: Alert and oriented X 3, no focal deficits noted. [] Psychologic: Affect normal, judgement normal, mood normal. [] Current Patient Data Vital Signs Vital Signs Date Time Temp Pulse Resp B/P (MAP) Pulse Ox O2 Delivery O2 Flow Rate FiO2 08/19/19 12:01 97.5 68 16 141/88 (105) 98 Room Air 97.5 Lab Values EKG EKG EKG interpreted by me. EKG at 1153 showed atrial fibrillation at rate of 70, multiple artifact, no acute ST and T-wave abnormalities.[] Radiology/Procedures Radiology/Procedures [][facility] [address] [place] [address] IMAGING REPORT Signed PATIENT: GENIA MCKENZIE ACCOUNT: [id number] : 1940 LOCATION: ER AGE: 79 SEX: M EXAM STATUS: REG ER ORD. PHYSICIAN: JASON URENA MD REASON: near syncope PROCEDURE: PORTABLE CHEST 1V PORTABLE CHEST 1V History: Near syncope Comparison: August 08, 2019 Findings: No consolidation or pleural effusion. Normal heart size. Left-sided pacemaker. No pneumothorax. Hyperinflation. Bilateral basilar pleural thickening. Impression: 1. Hyperinflation. 2. Otherwise, negative chest. Electronically signed by: Alfredo Almazan DO (08/19/2019 12:44 PM) [facility] DICTATED and SIGNED BY: ALFREDO ALMAZAN DO DATE: 08/19/19 1244 [facility] [address] [place] [address] IMAGING REPORT Signed PATIENT: GENIA MCKENZIE ACCOUNT: [id number] : 1940 LOCATION: ER AGE: 79 SEX: M EXAM STATUS: REG ER ORD. PHYSICIAN: JASON URENA MD REASON: syncope PROCEDURE: CT HEAD WO CONTRAST PQRS Compliance Statement: One or more of the following individualized dose reduction techniques were utilized for this examination: 1. Automated exposure control 2. Adjustment of the mA and/or kV according to patient size 3. Use of iterative reconstruction technique CT HEAD WITHOUT CONTRAST History: Syncope. Comparison: CT head without contrast January 24, 2019. Technique: Axial images are obtained of the head from the skull base through the vertex without IV contrast. Findings: No mass-effect, midline shift, extra-axial fluid collection, hemorrhage, or obvious acute infarction is identified. Basilar cisterns are patent. The ventricles and sulci are prominent, consistent with age-related cerebral atrophy. There is supratentorial white matter hypoattenuation. This is a nonspecific finding but is commonly due to chronic small vessel ischemic disease. 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 Bone windows demonstrate no acute calvarial abnormality. There is opacity at the left external auditory canal. The visualized paranasal sinuses are clear. Mastoid air cells are well aerated. IMPRESSION: 1. No acute intracranial abnormality. 2. Mild cerebral atrophy and supratentorial white matter changes probably due to chronic small vessel ischemic disease. 3. 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 Electronically signed by: Isaac Ramos MD (08/19/2019 1:15 PM) [id number] DICTATED and SIGNED BY: ISAAC RAMOS MD DATE: 08/19/19 1312 Course & Med Decision Making Course & Med Decision Making Pertinent Labs and Imaging studies reviewed. (See chart for details) Evaluation of patient in ER showed 79-year-old male patient brought in by EMS because of the syncopal episode after drawing blood. Patient had orthostatic hypotension treated with IV fluid with improvement of his condition. Patient requiring admission for further evaluation and treatment. Discussed with Dr. Terry who is in agreement with admission. Discussed findings and plan with patient and family, who acknowledge understanding and agreement. Dragon Disclaimer Dragon Disclaimer This electronic medical record was generated, in whole or in part, using a voice recognition dictation system. Departure Departure Impression: Primary Impression: Syncope Additional Impressions: Weakness Dizziness Anticoagulated on Coumadin Orthostatic hypotension Disposition: ADMITTED INPATIENT (At 1331) Admitting Physician: FABRICIO (Dr Terry ACCEPTED ADMISSION AT 1330) Condition: IMPROVED Referrals: Hazel MEADOWS MD (PCP) Problem Qualifiers Primary Impression: Syncope Syncope type: vasovagal syncope Qualified Codes: R55 - Syncope and collapse JASON URENA MD Aug 19, 2019 13:26
[2019-08-19 13:28] LABS: ALBUMIN 3.5 g/dL (3.4-5.0); ALBUMIN/GLOBULIN RATIO 0.9 (1.0-1.7); TOTAL BILIRUBIN 0.6 mg/dL (0.2-1.0); TOTAL PROTEIN 7.2 g/dL (6.4-8.2)
[2019-08-19 13:31] LABS: ANISOCYTOSIS SLIGHT; PLT ESTIMATE ADEQUATE (ADEQUATE)
--- NOTE | 2019-08-19 13:36 | EKG ---
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
--- NOTE | 2019-08-19 14:00 | PDOC1 ---
History and Physical Date of Admission Date of Admission DATE: 08/19/19 TIME: 13:54 Identification/Chief Complaint Chief Complaint Syncope History of Present Illness History of Present Illness Mr Sterling is a 79 year old male w/PMHx A-Fib, CHF s/p AICD pacemaker, constipat ion, COPD, prior frontal CVA, GERD s/p darlin, GI Bleed, High Cholesterol, Hypertension, Hypotension, CAD, BPH, achalasia who presents via EMS with complaining of syncope. Patient was at his primary care physician office today for checking INR regarding taking Coumadin, felt dizzy and lightheaded and passed out with shaking noted. EMS reported no postictal confusion was alert and oriented. Patient had orthostatic hypotension with drop of blood pressure by 66mmHg on standing up and IV fluid was started by EMS. Patient states he had the same problem previously and was admitted at Hospital for several days without abnormal finding. Patient denies chest pain, shortness of breath, headache, blurred vision, nausea and vomiting, diarrhea, urinary symptom. Patient states he didn't feel good for the last couple days and complaining of dizziness and generalized weakness without 1 episode of chest pain yesterday and 2 episodes of dizziness and presyncope in his kitchen which improved with sitting. Digoxin level 1.6, INR 3.5. He has outpatient scripts for florinef midodrine currently. Past Medical History Cardiovascular: AFIB, CAD, CHF, HTN, [place], Hyperlipidemia, Other Pulmonary: Bronchitis, COPD CENTRAL NERVOUS SYSTEM: CVA, Periperal neuropathy, Other GI: Constipation, GERD Heme/Onc: No pertinent hx, Other Hepatobiliary: No pertinent hx Psych: Addictions Musculoskeletal: low back pain Rheumatologic: No pertinent hx Infectious disease: No pertinent hx Renal/: Benign prostatic enlarg. Past Surgical History Past Surgical History: Pacemaker, CABG, Cataract Removal, Hernia Repair, Other Family History Family History: Heart Disease Social History Smoke: No ALCOHOL: none Drugs: None Current Medications Current Medications Current Medications Sodium Chloride 1,000 ml @ 1,000 mls/hr 1X ONCE IV Last administered on 08/19/19at 13:07; Start 08/19/19 at 12:45; Stop 08/19/19 at 13:44; Status DC Active Scripts Active Fludrocortisone Acetate 0.1 Mg Tablet 0.1 Mg PO DAILY 30 Days Keppra (Levetiracetam) 500 Mg Tablet 500 Mg PO BID 30 Days Gabapentin 300 Mg Capsule 300 Mg PO TID 90 Days Coumadin (Warfarin Sodium) 4 Mg Tablet 4 Mg PO 1X WARF 30 Days Flomax (Tamsulosin Hcl) 0.4 Mg Cap.er.24h 0.4 Mg PO QHS 30 Days Montelukast Sodium Tablet (Montelukast Sodium) 10 Mg Tablet 10 Mg PO QHS 30 Days Advair 250-50 Diskus (Fluticasone/Salmeterol) 1 Each Disk.w.dev 1 Puff IH BID Amiodarone Hcl 200 Mg Tablet 200 Mg PO DAILY 30 Days Midodrine Hcl 2.5 Mg Tablet 2.5 Mg PO [id number] 30 Days Duoneb 0.5-3(2.5) Mg/3 Ml (Albuterol/Ipratropium) 3 Ml Ampul.neb 3 Ml NEB RTQID 30 Days [Pantoprazole] 40 MG Tablet.dr 40 Mg PO DAILYAC 30 Days Proair Hfa Inhaler (Albuterol Sulfate) 8.5 Gm Hfa.aer.ad 1 Puff INH PRN Q6HRS PRN Reported Mag-Oxide (Magnesium Oxide) 400 Mg Tablet 400 Mg PO DAILY Trazodone Hcl 100 Mg Tablet 100 Mg PO QHS Oxycodone Hcl 20 Mg Tablet 20 Mg PO TID PRN PRN Simvastatin 20 Mg Tablet 1 Tab PO QHS Digoxin 125 Mcg Tablet 125 Mcg PO DAILY Allergies Allergies: Coded Allergies: Iodinated Contrast Media (Verified Allergy, Severe, anaphalaxis, short of air, 03/04/19) adhesive (Verified Allergy, Severe, PAINFUL SKIN IRRITATION , 03/04/19) latex (Verified Allergy, Intermediate, Hives, 03/04/19) morphine (Verified Allergy, Intermediate, 08/19/19) ROS General: YES: Fatigue, Malaise; No: Chills, Night Sweats, Appetite, Other PSYCHOLOGICAL ROS: No: Anxiety, Behavioral Disorder, Concentration difficultie, Decreased libido, Depression, Disorientation, Hallucinations, Hostility, Irritablity, Memory difficulties, Mood Swings, Obsessive thoughts, Physical abuse, Sexual abuse, Sleep disturbances, Suicidal ideation, Other Eyes: No Blurry vision, No Decreased vision, No Double vision, No Dry eyes, No Excessive tearing, No Eye Pain, No Itchy Eyes, No Loss of vision, No Phot ophobia, No Scotomata, No Uses contacts, No Uses glasses, No Other HEENT: No: Heacaches, Visual Changes, Hearing change, Nasal congestion, Nasal discharge, Oral lesions, Sinus pain, Sore Throat, Epistaxis, Sneezing, Snoring, Tinnitus, Vertigo, Vocal changes, Other ALLERGY AND IMMUNOLOGY: No: Hives, Insect Bite Sensitivity, Itchy/Watery Eyes, Nasal Congestion, Post Nasal Drip, Seasonal Allergies, Other Hematological and Lymphatic: No: Bleeding Problems, Blood Clots, Blood Transfusions, Brusing, Night Sweats, Pallor, Swollen Lymph Nodes, Other ENDOCRINE: No: Breast Changes, Galactorrhea, Hair Pattern Changes, Hot Flashes, Malaise/lethargy, Mood Swings, Palpitations, Polydipsia/polyuria, Skin Changes, Temperature Intolerance, Unexpected Weight Changes, Other Breast: No New/Changing Breast Lumps, No Nipple changes, No Nipple discharge, No Other Respiratory: No: Cough, Hemoptysis, Orthopnea, Pleuritic Pain, Shortness of breath, SOB with excertion, Sputum Changes, Stridor, Tachypnea, Wheezing, Other Cardiovascular: yes Chest Pain; No Palpitations, No Orthopnea, No Paroxysmal Noc. Dyspnea, No Edema, No Lt Headedness, No Other Gastrointestinal: Yes Nausea; No Vomiting, No Abdominal Pain, No Diarrhea, No Constipation, No Melena, No Hematochezia, No Other Genitourinary: No Dysuria, No Frequency, No Incontinence, No Hematuria, No Retention, No Discharge, No Urgency, No Pain, No Flank Pain, No Other, No , No , No , No , No , No , No Musculoskeletal: No Gait Disturbance, No Joint Pain, No Joint Stiffness, No Joint Swelling, No Muscle Pain, No Muscular Weakness, No Pain In:, No Swelling In:, No Other Neurological: Yes Dizziness; No Behavorial Changes, No Bowel/Bladder ControlChng, No Confusion, No Gait Disturbance, No Headaches, No Impaired Coord/balance, No Memory Loss, No Numbness/Tingling, No Seizures, No Speech Problems, No Tremors, No Visual Changes, No Weakness, No Other Skin: No Dry Skin, No Eczema, No Hair Changes, No Lumps, No Mole Changes, No Mottling, No Nail Changes, No Pruritus, No Rash, No Skin Lesion Changes, No Other, No Acne Physical Exam General: Alert, Oriented X3, Cooperative, No acute distress HEENT: Atraumatic, PERRLA, EOMI, Mucous membr. moist/pink Lungs: Other (Scattered wheezes) Heart: S1S2, no gallops, no murmurs Abdomen: Normal bowel sounds, Soft, No tenderness, No hepatosplenomegaly, No masses Rectal Exam: not examined Extremities: No clubbing, No cyanosis, No edema, Normal pulses, No te nderness/swelling Skin: No rashes, No breakdown, No significant lesion Neuro: Normal speech, Strength at 5/5 X4 ext, Normal tone, Sensation intact, Cranial nerves 3-12 NL, Reflexes 2+ Psych/Mental Status: Mental status NL, Mood NL Vitals Vitals Vital Signs Date Time Temp Pulse Resp B/P (MAP) Pulse Ox O2 Delivery O2 Flow Rate FiO2 08/19/19 12:01 97.5 68 16 141/88 (105) 98 Room Air 97.5 Labs Labs Laboratory Tests Test 08/19/19 12:58 White Blood Count 7.5 x10^3/uL (4.0-11.0) Red Blood Count 5.07 x10^6/uL (4.30-5.70) Hemoglobin 14.8 g/dL (13.0-17.5) Hematocrit 45.8 % (39.0-53.0) Mean Corpuscular Volume 90 fL (79-100) Mean Corpuscular Hemoglobin 29 pg (25-35) Mean Corpuscular Hemoglobin Concent 32 g/dL (31-37) Red Cell Distribution Width 21.6 % (11.5-14.5) Platelet Count 257 x10^3/uL (140-400) Neutrophils (%) (Auto) 82 % (31-73) Lymphocytes (%) (Auto) 8 % (24-48) Monocytes (%) (Auto) 7 % (0-9) Eosinophils (%) (Auto) 3 % (0-3) Basophils (%) (Auto) 1 % (0-3) Neutrophils # (Auto) 6.1 x10^3/uL (1.8-7.7) Lymphocytes # (Auto) 0.6 x10^3/uL (1.0-4.8) Monocytes # (Auto) 0.5 x10^3/uL (0.0-1.1) Eosinophils # (Auto) 0.2 x10^3/uL (0.0-0.7) Basophils # (Auto) 0.1 x10^3/uL (0.0-0.2) Platelet Estimate Adequate (ADEQUATE) Anisocytosis Slight Prothrombin Time 35.3 SEC (11.7-14.0) Prothromb Time International Ratio 3.5 (0.8-1.1) Sodium Level 145 mmol/L (136-145) Potassium Level 4.4 mmol/L (3.5-5.1) Chloride Level 108 mmol/L (98-107) Carbon Dioxide Level 32 mmol/L (21-32) Anion Gap 5 (6-14) Blood Urea Nitrogen 15 mg/dL (8-26) Creatinine 1.2 mg/dL (0.7-1.3) Estimated GFR (Cockcroft-Gault) 71.0 BUN/Creatinine Ratio 13 (6-20) Glucose Level 108 mg/dL (70-99) Lactic Acid Level 1.2 mmol/L (0.4-2.0) Calcium Level 9.2 mg/dL (8.5-10.1) Magnesium Level 2.0 mg/dL (1.8-2.4) Total Bilirubin 0.6 mg/dL (0.2-1.0) Aspartate Amino Transf (AST/SGOT) 18 U/L (15-37) Alanine Aminotransferase (ALT/SGPT) 20 U/L (16-63) Alkaline Phosphatase 78 U/L (46-116) Troponin I Quantitative < 0.017 ng/mL (0.000-0.055) Total Protein 7.2 g/dL (6.4-8.2) Albumin 3.5 g/dL (3.4-5.0) Albumin/Globulin Ratio 0.9 (1.0-1.7) Laboratory Tests Test 08/19/19 12:58 White Blood Count 7.5 x10^3/uL (4.0-11.0) Red Blood Count 5.07 x10^6/uL (4.30-5.70) Hemoglobin 14.8 g/dL (13.0-17.5) Hematocrit 45.8 % (39.0-53.0) Mean Corpuscular Volume 90 fL (79-100) Mean Corpuscular Hemoglobin 29 pg (25-35) Mean Corpuscular Hemoglobin Concent 32 g/dL (31-37) Red Cell Distribution Width 21.6 % (11.5-14.5) Platelet Count 257 x10^3/uL (140-400) Neutrophils (%) (Auto) 82 % (31-73) Lymphocytes (%) (Auto) 8 % (24-48) Monocytes (%) (Auto) 7 % (0-9) Eosinophils (%) (Auto) 3 % (0-3) Basophils (%) (Auto) 1 % (0-3) Neutrophils # (Auto) 6.1 x10^3/uL (1.8-7.7) Lymphocytes # (Auto) 0.6 x10^3/uL (1.0-4.8) Monocytes # (Auto) 0.5 x10^3/uL (0.0-1.1) Eosinophils # (Auto) 0.2 x10^3/uL (0.0-0.7) Basophils # (Auto) 0.1 x10^3/uL (0.0-0.2) Platelet Estimate Adequate (ADEQUATE) Anisocytosis Slight Prothrombin Time 35.3 SEC (11.7-14.0) Prothromb Time International Ratio 3.5 (0.8-1.1) Sodium Level 145 mmol/L (136-145) Potassium Level 4.4 mmol/L (3.5-5.1) Chloride Level 108 mmol/L (98-107) Carbon Dioxide Level 32 mmol/L (21-32) Anion Gap 5 (6-14) Blood Urea Nitrogen 15 mg/dL (8-26) Creatinine 1.2 mg/dL (0.7-1.3) Estimated GFR (Cockcroft-Gault) 71.0 BUN/Creatinine Ratio 13 (6-20) Glucose Level 108 mg/dL (70-99) Lactic Acid Level 1.2 mmol/L (0.4-2.0) Calcium Level 9.2 mg/dL (8.5-10.1) Magnesium Level 2.0 mg/dL (1.8-2.4) Total Bilirubin 0.6 mg/dL (0.2-1.0) Aspartate Amino Transf (AST/SGOT) 18 U/L (15-37) Alanine Aminotransferase (ALT/SGPT) 20 U/L (16-63) Alkaline Phosphatase 78 U/L (46-116) Troponin I Quantitative < 0.017 ng/mL (0.000-0.055) Total Protein 7.2 g/dL (6.4-8.2) Albumin 3.5 g/dL (3.4-5.0) Albumin/Globulin Ratio 0.9 (1.0-1.7) Images Images CXR - 1. Hyperinflation. 2. Otherwise, negative chest. CT head - 1. No acute intracranial abnormality. 2. Mild cerebral atrophy and supratentorial white matter changes probably due to chronic small vessel ischemic disease. 3. 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 Echo - 02/2019 - The left ventricular systolic function is normal and the ejection fraction is within normal range. The Ejection Fraction is 60-65%. Doppler and Color Flow revealed mild tricuspid regurgitation. The PA pressure was estimated at 33 mmHg. Septal motion suggestive of conduction defect, otherwise normal wall motion. VTE Prophylaxis Ordered VTE Prophylaxis Devices: Contraindicated VTE Pharmacological Prophylaxi: Yes Assessment/Plan Assessment/Plan A/P: Syncope - sounds like a mixed picture. No post-ictal activity, lactate negative. Could be vasovagal. Will consult cardiology, interrogate his device Supratherapeutic INR - will hold coumadin for today Elevated digoxin level - goal should really be 0.6-1.2, now 1.6, will hold digoxin for a few days. Difficult to dose with his coumadin and amiodarone AFIB - paced with underlying AFIB, rate controlled AICD - [employer]onic NICM - compensated. NYHA 1-2. EF 60-65% HLD - cont statin s/p AAA and Iliac artery aneurysm repair. Stable. COPD - controlled. Will cont nebs Seizures - on keprra Recent PE - earlier in 2019. On coumadin Nontraumatic fall - more than 2 in a year, needs fall plan. Placement may be necessary at some point. PT FEN - Cardiac diet PPX - warfarin FULL CODE Dispo - CVC GEORGE COOPER MD Aug 19, 2019 14:00
[2019-08-19 14:31] LABS: DIG 1.6 ng/mL (0.9-2.0)
[2019-08-19 15:15] VITALS: BP 171/101
[2019-08-19 15:20] VITALS: BP_SYST 134; BP_SYST 96; BP_DIAS 69; BP_DIAS 86
[2019-08-19] MEDS ORDERED: ALBUTEROL SULFATE 2.5 MG/3 ML NEBU. INH PRN (15:45)
[2019-08-19] MEDS ORDERED: WARFARIN 4 MG TABLET. PO SCH (16:00)
--- NOTE | 2019-08-19 16:07 | NUR ---
Pharmacy Warfarin Dosing Note S:Pharmacy consulted to assist with anticoagulation therapy started with target INR: 2 -3 O:MINOR,GENIA Chandler is a 79 year old M with Atrial Fibrillation Clotting issues LABS: Last INR: 3.5 Last HGB: 14.8 Last HCT: 45.8 Last PLT: 257 Last dose of given on at Previous Regimen: Vitamin K given: N Drug Interaction Changes: Ongoing Drug Interactions: A:INR of 3.5 is above desired range. Target range for this patient is: 2 -3 P: Warfarin dose: Hold Today at 1600. Bridge Therapy: None Next INR due tomorrow. Pharmacy anticoagulation service will continue to follow. Silverio Garrido [facility], 08/19/19 [id number]
--- NOTE | 2019-08-19 16:10 | PDOC2 ---
CRYSTAL BAUTISTA STAFF RADIOLOGIST 08/19/19 1610: CARDIAC CONSULT DATE OF CONSULT Date of Consult DATE: 08/19/19 TIME: 16:03 REASON FOR CONSULT Reason for Consult: Syncope REFERRING PHYSICIAN Referring Physician: Mara SOURCE Source: Chart review, Patient HISTORY OF PRESENT ILLNESS HISTORY OF PRESENT ILLNESS This is a pleasant 79 yo male admitted for complains of passing out. He was at his PCP's office and was sitting and trying to drink water when he got dizzy and passed out. No injuries or fall. No bladder or bowel incontinence. Denies any palpitations, chest pain or SOA. No nausea or any focal neuro symptoms. He has not been having having any MG. He is known for orthostasis with frequent episodes despite treatments however he has failed to remembr utilizing mecahnical compressions such as abdominal binder. For the most part he frequently is able to abort him passing out as when he started getting dizzy he just goes an lay down and his symptoms fade. Verbalized med compliance and has been hydrating self well. No convulsions or any post ictal events but he does have hx of seizures. PAST MEDICAL HISTORY Past Medical History Cardiovascular: AFIB, CAD, CHF, HTN, NC, Hyperlipidemia, orthostasis Pulmonary: Bronchitis, COPD CENTRAL NERVOUS SYSTEM: CVA, Peripheral neuropathy, dementia, seizures GI: Constipation, GERD Heme/Onc: No pertinent hx, Other Hepatobiliary: No pertinent hx Psych: Addictions Musculoskeletal: low back pain, OA Rheumatologic: No pertinent hx Infectious disease: No pertinent hx Renal/: Benign prostatic enlarg. PAST SURGICAL HISTORY Past Surgical History AICD with recent repair due to lead fracture, CABG, Cataract Removal, Hernia Repair FAMILY HISTORY Family History: Heart Disease SOCIAL HISTORY Smoke: No ALCOHOL: none Drugs: None Lives: Alone CURRENT MEDICATIONS CURRENT MEDICATIONS Current Medications Medications (Trade) Dose Ordered Sig/Alma Rosa Route PRN Reason Start Time Stop Time Status Last Admin Dose Admin Sodium Chloride 1,000 ml @ 1,000 mls/hr 1X ONCE IV 08/19/19 12:45 08/19/19 13:44 DC 08/19/19 13:07 ALLERGIES ALLERGIES: Coded Allergies: Iodinated Contrast Media (Verified Allergy, Severe, anaphalaxis, short of air, 03/04/19) adhesive (Verified Allergy, Severe, PAINFUL SKIN IRRITATION , 03/04/19) latex (Verified Allergy, Intermediate, Hives, 03/04/19) morphine (Verified Allergy, Intermediate, 08/19/19) ROS Review of System 14 point ROS evaluated with pertinent positives noted per HPI PHYSICAL EXAM General: Alert, Oriented X3, Cooperative, No acute distress HEENT: Atraumatic, Mucous membr. moist/pink Lungs: Clear to auscultation, Normal air movement Heart: Regular rate (atrial paced), Normal S1, Normal S2 Abdomen: Soft, No tenderness Extremities: No cyanosis, No edema Skin: No breakdown, No significant lesion Neuro: Normal speech, Sensation intact Psych/Mental Status: Mental status NL, Mood NL MUSCULOSKELETAL: Osteoarthritic changes both hands VITALS/I&O VITALS/I&O: Vital Signs Date Time Temp Pulse Resp B/P (MAP) Pulse Ox O2 Delivery O2 Flow Rate FiO2 08/19/19 14:00 68 16 163/88 (113) 99 Room Air 08/19/19 12:01 97.5 97.5 LABS Lab: Laboratory Tests Test 08/19/19 12:58 White Blood Count 7.5 x10^3/uL (4.0-11.0) Red Blood Count 5.07 x10^6/uL (4.30-5.70) Hemoglobin 14.8 g/dL (13.0-17.5) Hematocrit 45.8 % (39.0-53.0) Mean Corpuscular Volume 90 fL (79-100) Mean Corpuscular Hemoglobin 29 pg (25-35) Mean Corpuscular Hemoglobin Concent 32 g/dL (31-37) Red Cell Distribution Width 21.6 % (11.5-14.5) H Platelet Count 257 x10^3/uL (140-400) Neutrophils (%) (Auto) 82 % (31-73) H Lymphocytes (%) (Auto) 8 % (24-48) L Monocytes (%) (Auto) 7 % (0-9) Eosinophils (%) (Auto) 3 % (0-3) Basophils (%) (Auto) 1 % (0-3) Neutrophils # (Auto) 6.1 x10^3/uL (1.8-7.7) Lymphocytes # (Auto) 0.6 x10^3/uL (1.0-4.8) L Monocytes # (Auto) 0.5 x10^3/uL (0.0-1.1) Eosinophils # (Auto) 0.2 x10^3/uL (0.0-0.7) Basophils # (Auto) 0.1 x10^3/uL (0.0-0.2) Platelet Estimate Adequate (ADEQUATE) Anisocytosis Slight Prothrombin Time 35.3 SEC (11.7-14.0) H Prothrombin Time INR 3.5 (0.8-1.1) H Sodium Level 145 mmol/L (136-145) Potassium Level 4.4 mmol/L (3.5-5.1) Chloride Level 108 mmol/L (98-107) H Carbon Dioxide Level 32 mmol/L (21-32) Anion Gap 5 (6-14) L Blood Urea Nitrogen 15 mg/dL (8-26) Creatinine 1.2 mg/dL (0.7-1.3) Estimated GFR (Cockcroft-Gault) 71.0 BUN/Creatinine Ratio 13 (6-20) Glucose Level 108 mg/dL (70-99) H Lactic Acid Level 1.2 mmol/L (0.4-2.0) Calcium Level 9.2 mg/dL (8.5-10.1) Magnesium Level 2.0 mg/dL (1.8-2.4) Total Bilirubin 0.6 mg/dL (0.2-1.0) Aspartate Amino Transferase (AST) 18 U/L (15-37) Alanine Aminotransferase (ALT) 20 U/L (16-63) Alkaline Phosphatase 78 U/L (46-116) Troponin I Quantitative < 0.017 ng/mL (0.000-0.055) Total Protein 7.2 g/dL (6.4-8.2) Albumin 3.5 g/dL (3.4-5.0) Albumin/Globulin Ratio 0.9 (1.0-1.7) L Digoxin Level 1.6 ng/mL (0.9-2.0) Digoxin Last Dose Date Unk Digoxin Last Dose Time Unk Laboratory Tests 08/19/19 12:58 Laboratory Tests 08/19/19 12:58 ECHOCARDIOGRAM ECHOCARDIOGRAM <Conclusion> The left ventricular systolic function is normal and the ejection fraction is within normal range. The Ejection Fraction is 60-65%. Doppler and Color Flow revealed mild tricuspid regurgitation. The PA pressure was estimated at 33 mmHg. Septal motion suggestive of conduction defect, otherwise normal wall motion. DATE: 01/25/19 1545 STRESS TEST STRESS TEST Conclusion 1. Paced rhythm. 2. Nuclear imaging shows no reversible ischemia. 3. Nuclear imaging shows mild fixed thinning of the inferior wall consistent with an attenuation defect. 4. Normal LV systolic function with an ejection fraction of 60%. 5. Moderately low risk Lexiscan stress test with no reversible ischemia and an ejection fraction of 60%. DATE: 03/28/18 1413 ASSESSMENT/PLAN ASSESSMENT/PLAN 1. Syncope: likely orthostasis 2. 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 AICD in situ: ([employer]) 4. Hx of NICM: compensated. NYHA 1-2. Recovered recent EF at 60-65% 5. PAFIB: atrial paced 5. HLP 6. s/p AAA, s/p Iliac artery aneurysm repair. Stable. 7. COPD: controlled 8. Hx of seizures 10. Recent PE: about 7 months ago 11. Multiple aborted falls. Recommendations 1. Continue with secondary prevention 2. Discussed significnatly in regards to mechanical compression. Will use abd binder 3. Continue with midodrine. 4. Coumadin therapy. Will need outpt LAAO referral 5. Continue amiodarone. Will consider discontinuation of digoxin. Await device interrogation and note AFIB burden and any arrhythmias contributing to his syncope. CHRIS MULLEN MD 08/20/19 0800: CARDIAC CONSULT ASSESSMENT/PLAN ASSESSMENT/PLAN Late entry for 08/19/2019 Patient seen and examined. Agree with above nurse practitioner note. Supportive care for now. No further cardiac testing necessary at this time. CRYSTAL BAUTISTA APRN Aug 19, 2019 16:10 CHRIS MULLEN MD Aug 20, 2019 08:00
[2019-08-19] MEDS: IPRATRPIUM/ALBUTEROL 0.5/2.5MG 3 ML NEBU. NEB SCH ×2 (16:20→20:52)
[2019-08-19] MEDS ORDERED: FLU VAX QS 2019-20 (36MOS+)/PF 0.5 ML SYRINGE. VAX IM ONE (16:30)
[2019-08-19] MEDS: MIDODRINE 2.5 MG TABLET PO SCH (18:00)
--- NOTE | 2019-08-19 18:37 | NUR ---
Midodrine: pt had eaten dinner prior to admin time.
[2019-08-19 19:30] VITALS: BP 119/69
[2019-08-19] MEDS: BUDESONIDE 0.5 MG/2 ML NEBU. NEB SCH (20:52)
[2019-08-19] MEDS: MONTELUKAST SODIUM 10 MG TABLET. PO SCH (20:55)
[2019-08-19] MEDS: levETIRAcetam 500 MG TABLET PO SCH (20:55)
[2019-08-19] MEDS: TAMSULOSIN 0.4 MG CAP.ER.24H. PO SCH (20:56)
[2019-08-19] MEDS: SIMVASTATIN 20 MG TABLET PO SCH (20:56)
[2019-08-19] MEDS: traZODone 100 MG TABLET. PO SCH (20:56)
[2019-08-19] MEDS ORDERED: NON FORMULARY ITEM (Fluticasone/Salmeterol (Advair 250-50 Diskus) 1 PUFF) IH SCH (21:00)
[2019-08-19] MEDS: GABAPENTIN 300 MG CAPSULE. PO SCH (21:30)
[2019-08-19] MEDS: oxyCODONE IR 5 MG TABLET PO PRN (21:31)
[2019-08-19] MEDS ORDERED: LIDO:MAALOX 1:1 20 ML SINGLE DOSE. SWSW ONE (22:30)
[2019-08-19 23:24] VITALS: BP 128/71
[2019-08-20] MEDS ORDERED: traZODone 100 MG TABLET. PO PRN
[2019-08-20] MEDS: traZODone 100 MG TABLET. PO SCH (00:06)
[2019-08-20 03:30] VITALS: BP 116/70
[2019-08-20 03:49] LABS: BASO % 1 % (0-3); EOS # 0.3 x10^3/uL (0.0-0.7); EOS % 6 % (0-3); HEMATOCRIT 39.7 % (39.0-53.0); HEMOGLOBIN 12.9 g/dL (13.0-17.5); LYMPH # 1.2 x10^3/uL (1.0-4.8); LYMPH % 28 % (24-48); MEAN CORPUSCULAR HEMOGLOBIN 29 pg (25-35); MEAN CORPUSCULAR HGB CONC 32 g/dL (31-37); MEAN CORPUSCULAR VOLUME 90 fL (79-100); MONO # 0.5 x10^3/uL (0.0-1.1); MONO % 11 % (0-9); NEUT # 2.4 x10^3/uL (1.8-7.7); NEUT % 54 % (31-73); PLATELET COUNT 228 x10^3/uL (140-400); RED BLOOD COUNT 4.43 x10^6/uL (4.30-5.70); RED CELL DISTRIBUTION WIDTH 21.8 % (11.5-14.5); WHITE BLOOD COUNT 4.4 x10^3/uL (4.0-11.0)
[2019-08-20 04:01] LABS: CREATININE 0.9 mg/dL (0.7-1.3); POTASSIUM 3.6 mmol/L (3.5-5.1)
[2019-08-20] MEDS: IV NORMAL SALINE 1000ML BAG 1,000 ML IV SCH (06:17)
[2019-08-20 07:00] VITALS: BP 118/77
[2019-08-20] MEDS: MIDODRINE 2.5 MG TABLET PO SCH ×3 (07:00→17:08)
[2019-08-20] MEDS: IPRATRPIUM/ALBUTEROL 0.5/2.5MG 3 ML NEBU. NEB SCH ×4 (07:22→20:06)
[2019-08-20] MEDS: BUDESONIDE 0.5 MG/2 ML NEBU. NEB SCH ×2 (07:22→20:06)
[2019-08-20] MEDS: levETIRAcetam 500 MG TABLET PO SCH ×2 (08:04→20:41)
[2019-08-20] MEDS: PANTOPRAZOLE 40 MG TABLET.DR. PO SCH (08:04)
[2019-08-20] MEDS: AMIODARONE HCL 200 MG TABLET. PO SCH (08:04)
[2019-08-20] MEDS: FLUDROCORTISONE 0.1 MG TABLET PO SCH (08:05)
[2019-08-20] MEDS: MAGNESIUM OXIDE 400 MG TABLET PO SCH (08:06)
--- NOTE | 2019-08-20 08:20 | NUR ---
Pharmacy Warfarin Dosing Note S:Pharmacy consulted to assist with anticoagulation therapy started with target INR: 2 -3 O:MINOR,GENIA Chandler is a 79 year old M with Atrial Fibrillation Clotting issues LABS: Last INR: 3.7 Last HGB: 12.9 Last HCT: 39.7 Last PLT: 228 Last dose of Hold given on 08/19/19 at 1600 Previous Regimen: Vitamin K given: N Drug Interaction Changes: Ongoing Drug Interactions: A:INR of 3.7 is above desired range. Target range for this patient is: 2 -3 P: Warfarin dose: Hold Today at 1600 Bridge Therapy: None Next INR due IN AM Pharmacy anticoagulation service will continue to follow. OSVALDO CARRILLO [facility], 08/20/19 [id number]
--- NOTE | 2019-08-20 09:38 | PDOC ---
PROGRESS NOTES Chief Complaint Chief Complaint 1. Syncope: likely orthostasis 2. 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 AICD in situ: ([employer]) 4. Hx of NICM: compensated. NYHA 1-2. Recovered recent EF at 60-65% 5. PAFIB: atrial paced 5. HLP 6. s/p AAA, s/p Iliac artery aneurysm repair. Stable. 7. COPD: controlled 8. Hx of seizures 10. Recent PE: about 7 months ago 11. Multiple aborted falls. History of Present Illness History of Present Illness claims had sz so went to PCP (Dr Vicente Zepeda) CArdiac device interrogated - functioning ok VERY WEAK,c rodger from home Known SZ, claims complaince to meds PLAN: Consult neuro SZ prec Ativan prn Add PT OT SW if pT recs SNU dw Rn Elayne Vitals Vitals Vital Signs Date Time Temp Pulse Resp B/P (MAP) Pulse Ox O2 Delivery O2 Flow Rate FiO2 08/20/19 08:04 69 118/77 08/20/19 08:00 Room Air 08/20/19 07:23 96 08/20/19 07:00 97.6 16 97.6 Physical Exam General: Alert, Oriented X3, Cooperative, No acute distress Heart: Regular rate (atrial paced), Normal S1, Normal S2 Lungs: Clear Abdomen: Soft, No tenderness Extremities: No cyanosis, No edema Skin: No breakdown, No significant lesion Labs LABS Laboratory Tests Test 08/19/19 12:58 08/19/19 17:45 08/19/19 20:30 08/20/19 03:30 White Blood Count 7.5 x10^3/uL (4.0-11.0) 4.4 x10^3/uL (4.0-11.0) Red Blood Count 5.07 x10^6/uL (4.30-5.70) 4.43 x10^6/uL (4.30-5.70) Hemoglobin 14.8 g/dL (13.0-17.5) 12.9 g/dL (13.0-17.5) Hematocrit 45.8 % (39.0-53.0) 39.7 % (39.0-53.0) Mean Corpuscular Volume 90 fL (79-100) 90 fL (79-100) Mean Corpuscular Hemoglobin 29 pg (25-35) 29 pg (25-35) Mean Corpuscular Hemoglobin Concent 32 g/dL (31-37) 32 g/dL (31-37) Red Cell Distribution Width 21.6 % (11.5-14.5) 21.8 % (11.5-14.5) Platelet Count 257 x10^3/uL (140-400) 228 x10^3/uL (140-400) Neutrophils (%) (Auto) 82 % (31-73) 54 % (31-73) Lymphocytes (%) (Auto) 8 % (24-48) 28 % (24-48) Monocytes (%) (Auto) 7 % (0-9) 11 % (0-9) Eosinophils (%) (Auto) 3 % (0-3) 6 % (0-3) Basophils (%) (Auto) 1 % (0-3) 1 % (0-3) Neutrophils # (Auto) 6.1 x10^3/uL (1.8-7.7) 2.4 x10^3/uL (1.8-7.7) Lymphocytes # (Auto) 0.6 x10^3/uL (1.0-4.8) 1.2 x10^3/uL (1.0-4.8) Monocytes # (Auto) 0.5 x10^3/uL (0.0-1.1) 0.5 x10^3/uL (0.0-1.1) Eosinophils # (Auto) 0.2 x10^3/uL (0.0-0.7) 0.3 x10^3/uL (0.0-0.7) Basophils # (Auto) 0.1 x10^3/uL (0.0-0.2) 0.0 x10^3/uL (0.0-0.2) Platelet Estimate Adequate (ADEQUATE) Anisocytosis Slight Prothrombin Time 35.3 SEC (11.7-14.0) 37.0 SEC (11.7-14.0) Prothromb Time International Ratio 3.5 (0.8-1.1) 3.7 (0.8-1.1) Sodium Level 145 mmol/L (136-145) 143 mmol/L (136-145) Potassium Level 4.4 mmol/L (3.5-5.1) 3.6 mmol/L (3.5-5.1) Chloride Level 108 mmol/L (98-107) 110 mmol/L (98-107) Carbon Dioxide Level 32 mmol/L (21-32) 29 mmol/L (21-32) Anion Gap 5 (6-14) 4 (6-14) Blood Urea Nitrogen 15 mg/dL (8-26) 13 mg/dL (8-26) Creatinine 1.2 mg/dL (0.7-1.3) 0.9 mg/dL (0.7-1.3) Estimated GFR (Cockcroft-Gault) 71.0 99.0 BUN/Creatinine Ratio 13 (6-20) Glucose Level 108 mg/dL (70-99) 123 mg/dL (70-99) Lactic Acid Level 1.2 mmol/L (0.4-2.0) Calcium Level 9.2 mg/dL (8.5-10.1) 8.0 mg/dL (8.5-10.1) Magnesium Level 2.0 mg/dL (1.8-2.4) Total Bilirubin 0.6 mg/dL (0.2-1.0) Aspartate Amino Transf (AST/SGOT) 18 U/L (15-37) Alanine Aminotransferase (ALT/SGPT) 20 U/L (16-63) Alkaline Phosphatase 78 U/L (46-116) Troponin I Quantitative < 0.017 ng/mL (0.000-0.055) < 0.017 ng/mL (0.000-0.055) < 0.017 ng/mL (0.000-0.055) Total Protein 7.2 g/dL (6.4-8.2) Albumin 3.5 g/dL (3.4-5.0) Albumin/Globulin Ratio 0.9 (1.0-1.7) Digoxin Level 1.6 ng/mL (0.9-2.0) Digoxin Last Dose Date Unk Digoxin Last Dose Time Unk Review of Systems Review of Systems weak, rest of 14 pt neg Assessment and Plan Assessmemt and Plan Problems Medical Problems: (1) Anticoagulated on Coumadin Status: Acute (2) Orthostatic hypotension Status: Acute (3) Syncope Status: Acute (4) Weakness Status: Acute Comment Review of Relevant I have reviewed the following items [email or web address] (where applicable) has been applied. Labs Laboratory Tests Test 08/19/19 12:58 08/19/19 17:45 08/19/19 20:30 08/20/19 03:30 White Blood Count 7.5 x10^3/uL (4.0-11.0) 4.4 x10^3/uL (4.0-11.0) Red Blood Count 5.07 x10^6/uL (4.30-5.70) 4.43 x10^6/uL (4.30-5.70) Hemoglobin 14.8 g/dL (13.0-17.5) 12.9 g/dL (13.0-17.5) Hematocrit 45.8 % (39.0-53.0) 39.7 % (39.0-53.0) Mean Corpuscular Volume 90 fL (79-100) 90 fL (79-100) Mean Corpuscular Hemoglobin 29 pg (25-35) 29 pg (25-35) Mean Corpuscular Hemoglobin Concent 32 g/dL (31-37) 32 g/dL (31-37) Red Cell Distribution Width 21.6 % (11.5-14.5) 21.8 % (11.5-14.5) Platelet Count 257 x10^3/uL (140-400) 228 x10^3/uL (140-400) Neutrophils (%) (Auto) 82 % (31-73) 54 % (31-73) Lymphocytes (%) (Auto) 8 % (24-48) 28 % (24-48) Monocytes (%) (Auto) 7 % (0-9) 11 % (0-9) Eosinophils (%) (Auto) 3 % (0-3) 6 % (0-3) Basophils (%) (Auto) 1 % (0-3) 1 % (0-3) Neutrophils # (Auto) 6.1 x10^3/uL (1.8-7.7) 2.4 x10^3/uL (1.8-7.7) Lymphocytes # (Auto) 0.6 x10^3/uL (1.0-4.8) 1.2 x10^3/uL (1.0-4.8) Monocytes # (Auto) 0.5 x10^3/uL (0.0-1.1) 0.5 x10^3/uL (0.0-1.1) Eosinophils # (Auto) 0.2 x10^3/uL (0.0-0.7) 0.3 x10^3/uL (0.0-0.7) Basophils # (Auto) 0.1 x10^3/uL (0.0-0.2) 0.0 x10^3/uL (0.0-0.2) Platelet Estimate Adequate (ADEQUATE) Anisocytosis Slight Prothrombin Time 35.3 SEC (11.7-14.0) 37.0 SEC (11.7-14.0) Prothromb Time International Ratio 3.5 (0.8-1.1) 3.7 (0.8-1.1) Sodium Level 145 mmol/L (136-145) 143 mmol/L (136-145) Potassium Level 4.4 mmol/L (3.5-5.1) 3.6 mmol/L (3.5-5.1) Chloride Level 108 mmol/L (98-107) 110 mmol/L (98-107) Carbon Dioxide Level 32 mmol/L (21-32) 29 mmol/L (21-32) Anion Gap 5 (6-14) 4 (6-14) Blood Urea Nitrogen 15 mg/dL (8-26) 13 mg/dL (8-26) Creatinine 1.2 mg/dL (0.7-1.3) 0.9 mg/dL (0.7-1.3) Estimated GFR (Cockcroft-Gault) 71.0 99.0 BUN/Creatinine Ratio 13 (6-20) Glucose Level 108 mg/dL (70-99) 123 mg/dL (70-99) Lactic Acid Level 1.2 mmol/L (0.4-2.0) Calcium Level 9.2 mg/dL (8.5-10.1) 8.0 mg/dL (8.5-10.1) Magnesium Level 2.0 mg/dL (1.8-2.4) Total Bilirubin 0.6 mg/dL (0.2-1.0) Aspartate Amino Transf (AST/SGOT) 18 U/L (15-37) Alanine Aminotransferase (ALT/SGPT) 20 U/L (16-63) Alkaline Phosphatase 78 U/L (46-116) Troponin I Quantitative < 0.017 ng/mL (0.000-0.055) < 0.017 ng/mL (0.000-0.055) < 0.017 ng/mL (0.000-0.055) Total Protein 7.2 g/dL (6.4-8.2) Albumin 3.5 g/dL (3.4-5.0) Albumin/Globulin Ratio 0.9 (1.0-1.7) Digoxin Level 1.6 ng/mL (0.9-2.0) Digoxin Last Dose Date Unk Digoxin Last Dose Time Unk Laboratory Tests Test 08/19/19 12:58 08/19/19 17:45 08/19/19 20:30 08/20/19 03:30 White Blood Count 7.5 x10^3/uL (4.0-11.0) 4.4 x10^3/uL (4.0-11.0) Red Blood Count 5.07 x10^6/uL (4.30-5.70) 4.43 x10^6/uL (4.30-5.70) Hemoglobin 14.8 g/dL (13.0-17.5) 12.9 g/dL (13.0-17.5) Hematocrit 45.8 % (39.0-53.0) 39.7 % (39.0-53.0) Mean Corpuscular Volume 90 fL (79-100) 90 fL (79-100) Mean Corpuscular Hemoglobin 29 pg (25-35) 29 pg (25-35) Mean Corpuscular Hemoglobin Concent 32 g/dL (31-37) 32 g/dL (31-37) Red Cell Distribution Width 21.6 % (11.5-14.5) 21.8 % (11.5-14.5) Platelet Count 257 x10^3/uL (140-400) 228 x10^3/uL (140-400) Neutrophils (%) (Auto) 82 % (31-73) 54 % (31-73) Lymphocytes (%) (Auto) 8 % (24-48) 28 % (24-48) Monocytes (%) (Auto) 7 % (0-9) 11 % (0-9) Eosinophils (%) (Auto) 3 % (0-3) 6 % (0-3) Basophils (%) (Auto) 1 % (0-3) 1 % (0-3) Neutrophils # (Auto) 6.1 x10^3/uL (1.8-7.7) 2.4 x10^3/uL (1.8-7.7) Lymphocytes # (Auto) 0.6 x10^3/uL (1.0-4.8) 1.2 x10^3/uL (1.0-4.8) Monocytes # (Auto) 0.5 x10^3/uL (0.0-1.1) 0.5 x10^3/uL (0.0-1.1) Eosinophils # (Auto) 0.2 x10^3/uL (0.0-0.7) 0.3 x10^3/uL (0.0-0.7) Basophils # (Auto) 0.1 x10^3/uL (0.0-0.2) 0.0 x10^3/uL (0.0-0.2) Platelet Estimate Adequate (ADEQUATE) Anisocytosis Slight Prothrombin Time 35.3 SEC (11.7-14.0) 37.0 SEC (11.7-14.0) Prothromb Time International Ratio 3.5 (0.8-1.1) 3.7 (0.8-1.1) Sodium Level 145 mmol/L (136-145) 143 mmol/L (136-145) Potassium Level 4.4 mmol/L (3.5-5.1) 3.6 mmol/L (3.5-5.1) Chloride Level 108 mmol/L (98-107) 110 mmol/L (98-107) Carbon Dioxide Level 32 mmol/L (21-32) 29 mmol/L (21-32) Anion Gap 5 (6-14) 4 (6-14) Blood Urea Nitrogen 15 mg/dL (8-26) 13 mg/dL (8-26) Creatinine 1.2 mg/dL (0.7-1.3) 0.9 mg/dL (0.7-1.3) Estimated GFR (Cockcroft-Gault) 71.0 99.0 BUN/Creatinine Ratio 13 (6-20) Glucose Level 108 mg/dL (70-99) 123 mg/dL (70-99) Lactic Acid Level 1.2 mmol/L (0.4-2.0) Calcium Level 9.2 mg/dL (8.5-10.1) 8.0 mg/dL (8.5-10.1) Magnesium Level 2.0 mg/dL (1.8-2.4) Total Bilirubin 0.6 mg/dL (0.2-1.0) Aspartate Amino Transf (AST/SGOT) 18 U/L (15-37) Alanine Aminotransferase (ALT/SGPT) 20 U/L (16-63) Alkaline Phosphatase 78 U/L (46-116) Troponin I Quantitative < 0.017 ng/mL (0.000-0.055) < 0.017 ng/mL (0.000-0.055) < 0.017 ng/mL (0.000-0.055) Total Protein 7.2 g/dL (6.4-8.2) Albumin 3.5 g/dL (3.4-5.0) Albumin/Globulin Ratio 0.9 (1.0-1.7) Digoxin Level 1.6 ng/mL (0.9-2.0) Digoxin Last Dose Date Unk Digoxin Last Dose Time Unk Medications Current Medications Sodium Chloride 1,000 ml @ 1,000 mls/hr 1X ONCE IV Last administered on 08/19/19at 13:07; Start 08/19/19 at 12:45; Stop 08/19/19 at 13:44; Status DC Sodium Chloride 1,000 ml @ 125 mls/hr Q8H IV Last administered on 08/19/19at 02:00; Start 08/19/19 at 14:17; Stop 08/20/19 at 14:16 Albuterol Sulfate (Ventolin Neb Soln) 2.5 mg PRN Q6HRS PRN INH SHORTNESS OF BREATH; Start 08/19/19 at 15:45 Amiodarone HCl (Cordarone) 200 mg DAILY PO Last administered on 08/20/19at 08:04; Start 08/20/19 at 09:00 Digoxin (Lanoxin) 125 mcg DAILY PO ; Start 08/22/19 at 09:00 Fludrocortisone Acetate (Florinef) 0.1 mg DAILY PO Last administered on 08/20/19 08:05; Start 08/20/19 at 09:00 Albuterol/ Ipratropium (Duoneb) 3 ml RTQID NEB Last administered on 08/20/19 07:22; Start 08/19/19 at 16:00 Levetiracetam (Keppra) 500 mg BID PO Last administered on 08/20/19 08:04; Start 08/19/19 at 21:00 Magnesium Oxide (Magnesium Oxide) 400 mg DAILY PO Last administered on 08/20/19 08:06; Start 08/20/19 at 09:00 Midodrine (Proamatine) 2.5 mg [id number] PO ; Start 08/19/19 at 18:00 Montelukast Sodium (Singulair) 10 mg QHS PO Last administered on 08/19/19at 20:55; Start 08/19/19 at 21:00 Simvastatin (Zocor) 20 mg QHS PO Last administered on 08/19/19 20:56; Start 08/19/19 at 21:00 Tamsulosin HCl (Flomax) 0.4 mg QHS PO Last administered on 08/19/19 20:56; Start 08/19/19 at 21:00 Trazodone HCl (Desyrel) 100 mg QHS PO Last administered on 08/20/19 00:06; Start 08/19/19 at 21:00 Warfarin Sodium (Coumadin) 4 mg 1X WARF PO ; Start 08/19/19 at 16:00; Status UNV Non-Formulary Medication (Fluticasone/ Salmeterol (Advair 250-50 Diskus)) 1 puff BID IH ; Start 08/19/19 at 21:00; Status UNV Pantoprazole Sodium (Protonix) 40 mg DAILYAC PO Last administered on 08/20/19 08:04; Start 08/20/19 at 07:30 Warfarin Sodium (Coumadin Per Pharmacy) 1 each PRN DAILY PRN MC SEE COMMENTS Last administered on 08/20/19 08:06; Start 08/19/19 at 15:45 Budesonide (Pulmicort) 0.5 mg RTBID NEB Last administered on 11/2/19at 07:22; Start 08/19/19 at 20:00 Warfarin Sodium (Coumadin - No Dose Today) 1 each 1X WARF ONCE MC ; Start 08/20/19 at 16:00; Stop 08/20/19 at 16:01; Status Cancel Influenza Virus Vaccine Quadrival (Afluria Quad 2019-20 (3yr Up) Syringe) 0.5 ml ONCE ONCE VAX IM Last administered on 08/19/19at 20:55; Start 08/19/19 at 16:30; Stop 08/19/19 at 16:31; Status DC Gabapentin (Neurontin) 300 mg QHS PO Last administered on 08/19/19at 21:30; Start 08/19/19 at 21:30 Oxycodone HCl (Roxicodone) 10 mg PRN TID PRN PO MODERATE TO SEVERE PAIN Last administered on 08/19/19at 21:31; Start 08/19/19 at 21:30 Multi-Ingredient Mouthwash/Gargle (Gi Cocktail) 20 ml 1X ONCE SWSW ; Start 08/19/19 at 22:30; Stop 08/19/19 at 22:31; Status DC Trazodone HCl (Desyrel) 100 mg PRN QHS PRN PO SLEEP; Start 08/20/19 at 00:00 Warfarin Sodium (Coumadin - No Dose Today) 1 each 1X WARF ONCE MC ; Start 08/20/19 at 16:00; Stop 08/20/19 at 16:01 Active Scripts Active Fludrocortisone Acetate 0.1 Mg Tablet 0.1 Mg PO DAILY 30 Days Keppra (Levetiracetam) 500 Mg Tablet 500 Mg PO BID 30 Days Gabapentin 300 Mg Capsule 300 Mg PO TID 90 Days Coumadin (Warfarin Sodium) 4 Mg Tablet 4 Mg PO 1X WARF 30 Days Flomax (Tamsulosin Hcl) 0.4 Mg Cap.er.24h 0.4 Mg PO QHS 30 Days Montelukast Sodium Tablet (Montelukast Sodium) 10 Mg Tablet 10 Mg PO QHS 30 Days Advair 250-50 Diskus (Fluticasone/Salmeterol) 1 Each Disk.w.dev 1 Puff IH BID Amiodarone Hcl 200 Mg Tablet 200 Mg PO DAILY 30 Days Midodrine Hcl 2.5 Mg Tablet 2.5 Mg PO [id number] 30 Days Duoneb 0.5-3(2.5) Mg/3 Ml (Albuterol/Ipratropium) 3 Ml Ampul.neb 3 Ml NEB RTQID 30 Days [Pantoprazole] 40 MG Tablet.dr 40 Mg PO DAILYAC 30 Days Proair Hfa Inhaler (Albuterol Sulfate) 8.5 Gm Hfa.aer.ad 1 Puff INH PRN Q6HRS PRN Reported Mag-Oxide (Magnesium Oxide) 400 Mg Tablet 400 Mg PO DAILY Trazodone Hcl 100 Mg Tablet 100 Mg PO QHS Oxycodone Hcl 20 Mg Tablet 20 Mg PO TID PRN PRN Simvastatin 20 Mg Tablet 1 Tab PO QHS Digoxin 125 Mcg Tablet 125 Mcg PO DAILY Vitals/I & O Vital Sign - Last 24 Hours 08/19/19 08/19/19 08/19/19 08/19/19 12:01 13:00 13:30 14:00 Temp 97.5 97.5 Pulse 68 68 68 68 Resp 16 16 16 16 B/P (MAP) 141/88 (105) 146/83 (104) 173/91 (118) 163/88 (113) Pulse Ox 98 98 99 99 O2 Delivery Room Air Room Air Room Air Room Air 08/19/19 08/19/19 08/19/19 08/19/19 15:15 15:15 15:20 15:20 Temp 97.2 97.2 Pulse 69 74 72 Resp 18 B/P (MAP) 171/101 (124) 96/69 (78) 134/86 (102) Pulse Ox 99 O2 Delivery Room Air Room Air 08/19/19 08/19/19 08/19/19 08/19/19 16:20 19:30 19:47 20:51 Temp 98.1 98.1 Pulse 69 Resp 17 B/P (MAP) 119/69 (86) Pulse Ox 100 98 98 O2 Delivery Room Air Room Air Room Air Room Air 08/19/19 08/19/19 08/19/19 08/20/19 21:31 22:33 23:24 03:30 Temp 98.0 98.1 98.0 98.1 Pulse 69 69 Resp 16 16 18 20 B/P (MAP) 128/71 (90) 116/70 (85) Pulse Ox 98 95 O2 Delivery Room Air Room Air Room Air Room Air 08/20/19 08/20/19 08/20/19 08/20/19 07:00 07:00 07:23 08:00 Temp 97.6 97.6 Pulse 69 69 Resp 16 B/P (MAP) 118/77 118/77 (91) Pulse Ox 95 96 O2 Delivery Room Air Room Air Room Air 08/20/19 08:04 Pulse 69 B/P (MAP) 118/77 Intake and Output 08/19/19 08/19/19 08/20/19 15:00 23:00 07:00 Intake Total 300 ml 1650 ml Output Total 200 ml Balance 300 ml 1450 ml RIZWANA PAL MD Aug 20, 2019 09:38
[2019-08-20 11:00] VITALS: BP 93/57
[2019-08-20] MEDS: oxyCODONE IR 5 MG TABLET PO PRN (12:57)
[2019-08-20 14:30] VITALS: BP 104/61
--- NOTE | 2019-08-20 16:31 | PDOC2 ---
NEUROLOGY CONSULT Date of Admission Date of Admission DATE: 08/20/19 TIME: 16:13 Reason for Consult Reason for Consult: IMPRESSION: Syncope. Dizziness. Light headiness. Orthostatic hypotension. Chest pain. CAD. HI. COPD. HTN. HLD. AFib. Hx of PE. 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 Pacemaker in site. Seizure? RECOMMENDATIONS/PLAN: Carotid A US + doppler. Lab: see orders. Ortho HR and BP. EEG, outpatient [place]. He has been treated with Coumadin. Continue Statin HS. Treat medical diseases. Consulted Cardiology. History of Present Illness This is a 79 -year -old AA male with medical diseases including A-Fib, CHF s/p AICD pacemaker, constipation, COPD, prior frontal CVA, GERD s/p darlin, GI Bleed, High Cholesterol, Hypertension, Hypotension, CAD, BPH, achalasia who presents to the ER of [facility] via EMS with complaining of syncope, falls, and chest discomfort. He was at his primary care physician office on 08/19/19 for checking INR regarding taking Coumadin, he felt dizzy and lightheaded and passed out with shaking noted. EMS reported no postictal confusion was alert and oriented. Patient had orthostatic hypotension with drop of blood pressure by 66 mmHg on standing up and IV fluid was started by EMS. Patient states he had the same problem previously and was admitted at Hospital for several days without abnormal finding. Patient denies shortness of breath, headache, blurred vision, nausea and vomiting, diarrhea, urinary symptom. He stated he had a similar episode before and he has been having symptoms of dizziness and light headiness for about 2 months. He stated he had aura symptoms of coming dizziness from his feet to head. On exam on 08/20/19, he complained chest pain. Past Medical History Cardiovascular: AFIB, CAD, CHF, HTN, HI, Hyperlipidemia, Other Pulmonary: Bronchitis, COPD CENTRAL NERVOUS SYSTEM: CVA, Periperal neuropathy, Other GI: Constipation, GERD Heme/Onc: No pertinent hx, Other Hepatobiliary: No pertinent hx Psych: Addictions Musculoskeletal: low back pain Rheumatologic: No pertinent hx Infectious disease: No pertinent hx Renal/: Benign prostatic enlarg. Past Surgical History Pacemaker, CABG, Cataract Removal, Hernia Repair, Other Family History Heart Disease Allergies Coded Allergies: Iodinated Contrast Media (Verified Allergy, Severe, anaphalaxis, short of air, 03/04/19) adhesive (Verified Allergy, Severe, PAINFUL SKIN IRRITATION , 03/04/19) latex (Verified Allergy, Intermediate, Hives, 03/04/19) morphine (Verified Allergy, Intermediate, 08/19/19) MEDICATIONS: Refer to MAR SOCIAL HISTORY: Denies smoking, drinking, and illicit drug use. REVIEW OF SYSTEMS: Constitutional: No malnutrition, cachexia. Head: No traumatic brain or head injury. Skin: No edema, or rash. Ear: No infection. Eyes: No vision loss or color blindness. Nose: No bleeding or purulent discharges. Hearing: Hearing decrease. Neck: No injury. Cardiac: HI, CAD, AFib, Pacemaker Placement, HTN, HLD. Pulmonary: COPD. GI: No GI ulcer, GI bleeding. Urinary/genital: UTI. Endocrinologic: No cousin face, craniofacial dysmorphism, polydactyly. Skeletomuscular: Generalized weakness. Neurological: see HP. Psychiatric: Denies drug use/abuse. Otherwise, not [id number] review of systems. PHYSICAL EXAMINATION: General appearance is in subacute distress. HEENT: Normocephalic and nontraumatic. Eyes, nose, ears, and throat are unremarkable. Neck is supple. No lymphadenopathy. No crepitus. Cardiovascular: S1, S2. Pulmonary: Clear to auscultation bilaterally. Abdomen: Bowel sounds are positive. Abdomen is soft, nontender, and nondistended. Extremities: No rash, lesions, or edema. No restriction of range of motion NEUROLOGICAL EXAMINATION: Alert Oriented to time, place and person. PERRL. EOMI. CN: no focal findings. Muscle tone: within normal. Muscle strength: 5- DTR: 1-2 Plantar reflex: Flexor response bilaterally Gait: not examined in bed. Sensory exam: no abnormal findings. No cerebellar signs elicited. F-T-N test fine. Current Medications Current Medications Current Medications Sodium Chloride 1,000 ml @ 1,000 mls/hr 1X ONCE IV Last administered on 08/19/19at 13:07; Start 08/19/19 at 12:45; Stop 08/19/19 at 13:44; Status DC Sodium Chloride 1,000 ml @ 125 mls/hr Q8H IV Last administered on 08/19/19at 02:00; Start 08/19/19 at 14:17; Stop 08/20/19 at 14:16; Status DC Albuterol Sulfate (Ventolin Neb Soln) 2.5 mg PRN Q6HRS PRN INH SHORTNESS OF BREATH; Start 08/19/19 at 15:45 Amiodarone HCl (Cordarone) 200 mg DAILY PO Last administered on 08/20/19at 08:04; Start 08/20/19 at 09:00 Digoxin (Lanoxin) 125 mcg DAILY PO ; Start 08/22/19 at 09:00 Fludrocortisone Acetate (Florinef) 0.1 mg DAILY PO Last administered on 08/20/19 08:05; Start 08/20/19 at 09:00 Albuterol/ Ipratropium (Duoneb) 3 ml RTQID NEB Last administered on 08/20/19at 12:00; Start 08/19/19 at 16:00 Levetiracetam (Keppra) 500 mg BID PO Last administered on 08/20/19 08:04; Start 08/19/19 at 21:00 Magnesium Oxide (Magnesium Oxide) 400 mg DAILY PO Last administered on 08/20/19at 08:06; Start 08/20/19 at 09:00 Midodrine (Proamatine) 2.5 mg [id number] PO Last administered on 08/20/19at 12:08; Start 08/19/19 at 18:00 Montelukast Sodium (Singulair) 10 mg QHS PO Last administered on 08/19/19at 20:55; Start 08/19/19 at 21:00 Simvastatin (Zocor) 20 mg QHS PO Last administered on 08/19/19at 20:56; Start 08/19/19 at 21:00 Tamsulosin HCl (Flomax) 0.4 mg QHS PO Last administered on 08/19/19at 20:56; Start 08/19/19 at 21:00 Trazodone HCl (Desyrel) 100 mg QHS PO Last administered on 08/20/19at 00:06; Start 08/19/19 at 21:00 Warfarin Sodium (Coumadin) 4 mg 1X WARF PO ; Start 08/19/19 at 16:00; Status UNV Non-Formulary Medication (Fluticasone/ Salmeterol (Advair 250-50 Diskus)) 1 puff BID IH ; Start 08/19/19 at 21:00; Status UNV Pantoprazole Sodium (Protonix) 40 mg DAILYAC PO Last administered on 08/20/19at 08:04; Start 08/20/19 at 07:30 Warfarin Sodium (Coumadin Per Pharmacy) 1 each PRN DAILY PRN MC SEE COMMENTS Last administered on 08/20/19at 08:06; Start 08/19/19 at 15:45 Budesonide (Pulmicort) 0.5 mg RTBID NEB Last administered on 08/20/19at 07:22; Start 08/19/19 at 20:00 Warfarin Sodium (Coumadin - No Dose Today) 1 each 1X WARF ONCE MC ; Start 08/20/19 at 16:00; Stop 08/20/19 at 16:01; Status Cancel Influenza Virus Vaccine Quadrival (Afluria Quad 2019-20 (3yr Up) Syringe) 0.5 ml ONCE ONCE VAX IM Last administered on 08/19/19at 20:55; Start 08/19/19 at 16:30; Stop 08/19/19 at 16:31; Status DC Gabapentin (Neurontin) 300 mg QHS PO Last administered on 08/19/19at 21:30; Start 08/19/19 at 21:30 Oxycodone HCl (Roxicodone) 10 mg PRN TID PRN PO MODERATE TO SEVERE PAIN Last administered on 08/20/19at 12:57; Start 08/19/19 at 21:30 Multi-Ingredient Mouthwash/Gargle (Gi Cocktail) 20 ml 1X ONCE SWSW ; Start 08/19/19 at 22:30; Stop 08/19/19 at 22:31; Status DC Trazodone HCl (Desyrel) 100 mg PRN QHS PRN PO SLEEP; Start 08/20/19 at 00:00 Warfarin Sodium (Coumadin - No Dose Today) 1 each 1X WARF ONCE MC ; Start 08/20/19 at 16:00; Stop 08/20/19 at 16:01; Status DC Active Scripts Active Fludrocortisone Acetate 0.1 Mg Tablet 0.1 Mg PO DAILY 30 Days Keppra (Levetiracetam) 500 Mg Tablet 500 Mg PO BID 30 Days Gabapentin 300 Mg Capsule 300 Mg PO TID 90 Days Coumadin (Warfarin Sodium) 4 Mg Tablet 4 Mg PO 1X WARF 30 Days Flomax (Tamsulosin Hcl) 0.4 Mg Cap.er.24h 0.4 Mg PO QHS 30 Days Montelukast Sodium Tablet (Montelukast Sodium) 10 Mg Tablet 10 Mg PO QHS 30 Days Advair 250-50 Diskus (Fluticasone/Salmeterol) 1 Each Disk.w.dev 1 Puff IH BID Amiodarone Hcl 200 Mg Tablet 200 Mg PO DAILY 30 Days Midodrine Hcl 2.5 Mg Tablet 2.5 Mg PO [id number] 30 Days Duoneb 0.5-3(2.5) Mg/3 Ml (Albuterol/Ipratropium) 3 Ml Ampul.neb 3 Ml NEB RTQID 30 Days [Pantoprazole] 40 MG Tablet.dr 40 Mg PO DAILYAC 30 Days Proair Hfa Inhaler (Albuterol Sulfate) 8.5 Gm Hfa.aer.ad 1 Puff INH PRN Q6HRS PRN Reported Mag-Oxide (Magnesium Oxide) 400 Mg Tablet 400 Mg PO DAILY Trazodone Hcl 100 Mg Tablet 100 Mg PO QHS Oxycodone Hcl 20 Mg Tablet 20 Mg PO TID PRN PRN Simvastatin 20 Mg Tablet 1 Tab PO QHS Digoxin 125 Mcg Tablet 125 Mcg PO DAILY Allergies Allergies: Allergies Coded Allergies Type Severity Reaction Last Updated Verified Iodinated Contrast Media Allergy Severe anaphalaxis, short of air 03/04/19 Yes adhesive Allergy Severe PAINFUL SKIN IRRITATION 03/04/19 Yes latex Allergy Intermediate Hives 03/04/19 Yes morphine Allergy Intermediate 08/19/19 Yes ROS Review of System The patient denies any associated fevers, chills, headache, ear pain, rhinorrhea, sore throat, stiff neck, productive cough, chest pain, shortness of breath, back or flank pain, abdominal pain, nausea, vomiting, diarrhea, constipation, dysuria, rash, numbness, weakness, tingling, incontinence, difficulty ambulating, or diaphoresis. Physical Exam Physical Exam General: Well developed, well nourished, no acute distress, well appearing HEENT: Pupils equally round and reactive to light, EOMI, no discharge, normal conjunctiva Neck: Supple, no nuchal rigidity, no JVD, trachea midline, no tenderness Cardiac: RRR, no murmurs, no gallops, no rubs Chest/Lungs: CTAB, no wheeze, no rhonchi, no crackles Abdomen: soft, non-distended, no guarding, no peritoneal signs, non-tender Back: No tenderness Extremities: no edema, pulses intact, non-tender,capillary refill <3 sec bilateral upper and lower extremities, Neuro: Alert and oriented x 4, no focal deficits, normal speech Vitals Vitals: Vital Signs Date Time Temp Pulse Resp B/P (MAP) Pulse Ox O2 Delivery O2 Flow Rate FiO2 08/20/19 14:30 98.1 69 16 104/61 (75) 96 Room Air 98.1 Labs Labs Laboratory Tests Test 08/19/19 12:58 08/19/19 17:45 08/19/19 20:30 08/20/19 03:30 White Blood Count 7.5 x10^3/uL (4.0-11.0) 4.4 x10^3/uL (4.0-11.0) Red Blood Count 5.07 x10^6/uL (4.30-5.70) 4.43 x10^6/uL (4.30-5.70) Hemoglobin 14.8 g/dL (13.0-17.5) 12.9 g/dL (13.0-17.5) Hematocrit 45.8 % (39.0-53.0) 39.7 % (39.0-53.0) Mean Corpuscular Volume 90 fL (79-100) 90 fL (79-100) Mean Corpuscular Hemoglobin 29 pg (25-35) 29 pg (25-35) Mean Corpuscular Hemoglobin Concent 32 g/dL (31-37) 32 g/dL (31-37) Red Cell Distribution Width 21.6 % (11.5-14.5) 21.8 % (11.5-14.5) Platelet Count 257 x10^3/uL (140-400) 228 x10^3/uL (140-400) Neutrophils (%) (Auto) 82 % (31-73) 54 % (31-73) Lymphocytes (%) (Auto) 8 % (24-48) 28 % (24-48) Monocytes (%) (Auto) 7 % (0-9) 11 % (0-9) Eosinophils (%) (Auto) 3 % (0-3) 6 % (0-3) Basophils (%) (Auto) 1 % (0-3) 1 % (0-3) Neutrophils # (Auto) 6.1 x10^3/uL (1.8-7.7) 2.4 x10^3/uL (1.8-7.7) Lymphocytes # (Auto) 0.6 x10^3/uL (1.0-4.8) 1.2 x10^3/uL (1.0-4.8) Monocytes # (Auto) 0.5 x10^3/uL (0.0-1.1) 0.5 x10^3/uL (0.0-1.1) Eosinophils # (Auto) 0.2 x10^3/uL (0.0-0.7) 0.3 x10^3/uL (0.0-0.7) Basophils # (Auto) 0.1 x10^3/uL (0.0-0.2) 0.0 x10^3/uL (0.0-0.2) Platelet Estimate Adequate (ADEQUATE) Anisocytosis Slight Prothrombin Time 35.3 SEC (11.7-14.0) 37.0 SEC (11.7-14.0) Prothromb Time International Ratio 3.5 (0.8-1.1) 3.7 (0.8-1.1) Sodium Level 145 mmol/L (136-145) 143 mmol/L (136-145) Potassium Level 4.4 mmol/L (3.5-5.1) 3.6 mmol/L (3.5-5.1) Chloride Level 108 mmol/L (98-107) 110 mmol/L (98-107) Carbon Dioxide Level 32 mmol/L (21-32) 29 mmol/L (21-32) Anion Gap 5 (6-14) 4 (6-14) Blood Urea Nitrogen 15 mg/dL (8-26) 13 mg/dL (8-26) Creatinine 1.2 mg/dL (0.7-1.3) 0.9 mg/dL (0.7-1.3) Estimated GFR (Cockcroft-Gault) 71.0 99.0 BUN/Creatinine Ratio 13 (6-20) Glucose Level 108 mg/dL (70-99) 123 mg/dL (70-99) Lactic Acid Level 1.2 mmol/L (0.4-2.0) Calcium Level 9.2 mg/dL (8.5-10.1) 8.0 mg/dL (8.5-10.1) Magnesium Level 2.0 mg/dL (1.8-2.4) Total Bilirubin 0.6 mg/dL (0.2-1.0) Aspartate Amino Transf (AST/SGOT) 18 U/L (15-37) Alanine Aminotransferase (ALT/SGPT) 20 U/L (16-63) Alkaline Phosphatase 78 U/L (46-116) Troponin I Quantitative < 0.017 ng/mL (0.000-0.055) < 0.017 ng/mL (0.000-0.055) < 0.017 ng/mL (0.000-0.055) Total Protein 7.2 g/dL (6.4-8.2) Albumin 3.5 g/dL (3.4-5.0) Albumin/Globulin Ratio 0.9 (1.0-1.7) Digoxin Level 1.6 ng/mL (0.9-2.0) Digoxin Last Dose Date Unk Digoxin Last Dose Time Unk Laboratory Tests Test 08/19/19 17:45 08/19/19 20:30 08/20/19 03:30 Troponin I Quantitative < 0.017 ng/mL (0.000-0.055) < 0.017 ng/mL (0.000-0.055) White Blood Count 4.4 x10^3/uL (4.0-11.0) Red Blood Count 4.43 x10^6/uL (4.30-5.70) Hemoglobin 12.9 g/dL (13.0-17.5) Hematocrit 39.7 % (39.0-53.0) Mean Corpuscular Volume 90 fL (79-100) Mean Corpuscular Hemoglobin 29 pg (25-35) Mean Corpuscular Hemoglobin Concent 32 g/dL (31-37) Red Cell Distribution Width 21.8 % (11.5-14.5) Platelet Count 228 x10^3/uL (140-400) Neutrophils (%) (Auto) 54 % (31-73) Lymphocytes (%) (Auto) 28 % (24-48) Monocytes (%) (Auto) 11 % (0-9) Eosinophils (%) (Auto) 6 % (0-3) Basophils (%) (Auto) 1 % (0-3) Neutrophils # (Auto) 2.4 x10^3/uL (1.8-7.7) Lymphocytes # (Auto) 1.2 x10^3/uL (1.0-4.8) Monocytes # (Auto) 0.5 x10^3/uL (0.0-1.1) Eosinophils # (Auto) 0.3 x10^3/uL (0.0-0.7) Basophils # (Auto) 0.0 x10^3/uL (0.0-0.2) Prothrombin Time 37.0 SEC (11.7-14.0) Prothromb Time International Ratio 3.7 (0.8-1.1) Sodium Level 143 mmol/L (136-145) Potassium Level 3.6 mmol/L (3.5-5.1) Chloride Level 110 mmol/L (98-107) Carbon Dioxide Level 29 mmol/L (21-32) Anion Gap 4 (6-14) Blood Urea Nitrogen 13 mg/dL (8-26) Creatinine 0.9 mg/dL (0.7-1.3) Estimated GFR (Cockcroft-Gault) 99.0 Glucose Level 123 mg/dL (70-99) Calcium Level 8.0 mg/dL (8.5-10.1) PAUL FRENCH MD Aug 20, 2019 16:31
--- NOTE | 2019-08-20 19:05 | RAD ---
Carotid artery duplex Doppler ultrasound HISTORY: Syncope. FINDINGS: Right carotid artery demonstrates minimal subintimal echogenic plaquing at the bifurcation with much less than 50 percent stenosis by grayscale and color Doppler sonography. Normal carotid waveforms. Internal carotid artery peak systolic velocity 55 cm/s, end-diastolic velocity 13 cm/s. IC/CC velocity ratio is less than 1. Right vertebral artery antegrade blood flow. Left carotid artery demonstrates focal echogenic partially calcified plaquing at the bifurcation with less than 50 percent stenosis by grayscale and color Doppler sonography. Normal carotid waveforms. Internal carotid artery peak systolic velocity 55 cm/s, end-diastolic velocity 18 cm/s. IC/CC velocity ratio is less than 1. Left vertebral artery antegrade blood flow. IMPRESSION: Bilateral cervical carotid artery plaquing without significant stenosis or occlusion evident. Bilateral vertebral artery antegrade blood flow. Electronically signed by: Nakul Ray MD (08/20/2019 7:02 PM) [facility]
[2019-08-20 19:30] VITALS: BP 104/64
[2019-08-20] MEDS ORDERED: MAGNESIUM HYDROXIDE 2,400 MG/30 ML ORAL.SUSP. PO PRN (20:15)
[2019-08-20] MEDS: GABAPENTIN 300 MG CAPSULE. PO SCH (20:41)
[2019-08-20] MEDS: SIMVASTATIN 20 MG TABLET PO SCH (20:41)
[2019-08-20] MEDS: TAMSULOSIN 0.4 MG CAP.ER.24H. PO SCH (20:41)
[2019-08-20] MEDS: DOCUSATE SODIUM 100 MG CAPSULE. PO SCH (20:41)
[2019-08-20] MEDS: MONTELUKAST SODIUM 10 MG TABLET. PO SCH (20:41)
[2019-08-20 23:26] VITALS: BP 118/64
[2019-08-21 03:00] VITALS: BP 110/64
[2019-08-21 06:51] LABS: PROTHROMBIN TIME PATIENT 33.5 SEC (11.7-14.0)
[2019-08-21 07:00] VITALS: BP 140/85
[2019-08-21] MEDS: PANTOPRAZOLE 40 MG TABLET.DR. PO SCH (07:05)
[2019-08-21] MEDS: MIDODRINE 2.5 MG TABLET PO SCH ×3 (07:05→17:04)
[2019-08-21] MEDS: IPRATRPIUM/ALBUTEROL 0.5/2.5MG 3 ML NEBU. NEB SCH ×4 (07:53→19:41)
[2019-08-21] MEDS: BUDESONIDE 0.5 MG/2 ML NEBU. NEB SCH ×2 (07:53→19:41)
[2019-08-21] MEDS: AMIODARONE HCL 200 MG TABLET. PO SCH (08:27)
[2019-08-21] MEDS: DOCUSATE SODIUM 100 MG CAPSULE. PO SCH ×2 (08:27→20:29)
[2019-08-21] MEDS: MAGNESIUM OXIDE 400 MG TABLET PO SCH (08:27)
[2019-08-21] MEDS: levETIRAcetam 500 MG TABLET PO SCH ×2 (08:28→20:29)
[2019-08-21] MEDS: FLUDROCORTISONE 0.1 MG TABLET PO SCH (08:28)
[2019-08-21] MEDS: oxyCODONE IR 5 MG TABLET PO PRN (09:58)
--- NOTE | 2019-08-21 10:47 | NUR ---
Pharmacy Warfarin Dosing Note S: Pharmacy consulted to assist with anticoagulation therapy. Confirmed with patient's daughter that his dose prior to admission was warfarin 4 mg/day. O: MINOR,GENIA Chandler is a 79 year old M with atrial fibrillation, h/o PE LABS: Last INR: 3.3 Last HGB: 12.9 Last HCT: 39.7 Last PLT: 228 Vitamin K given: N Ongoing Drug Interactions: Amiodarone A:INR of 3.3 is above desired range of 2 - 3. Warfarin held since admission. INR trending down, expect to resume warfarin dosing tomorrow once INR is in goal range. P: Hold warfarin dose due to INR of 3.3 Next INR due 08/22/19 Pharmacy anticoagulation service will continue to follow. SORAYA HORN [facility], 08/21/19 [id number]
[2019-08-21 11:20] VITALS: BP 116/71
--- NOTE | 2019-08-21 12:33 | PDOC ---
PROGRESS NOTES Chief Complaint Chief Complaint A/P: Syncope - sounds like a mixed picture. No post-ictal activity, lactate negative. Could be vasovagal. Neurology and cardiology recs noted Supratherapeutic INR - will hold coumadin for today Elevated digoxin level - goal should really be 0.6-1.2, now 1.6, will hold digoxin for a few days. Difficult to dose with his coumadin and amiodarone AFIB - paced with underlying AFIB, rate controlled AICD - [employer] NICM - compensated. NYHA 1-2. EF 60-65% HLD - cont statin s/p AAA and Iliac artery aneurysm repair. Stable. COPD - controlled. Will cont nebs Seizures - on keprra Recent PE - earlier in 2019. On coumadin Nontraumatic fall - more than 2 in a year, needs fall plan. Placement may be necessary at some point. PT FEN - Cardiac diet PPX - warfarin FULL CODE Dispo - CVC History of Present Illness History of Present Illness Mr Sterling is a 79 year old male w/PMHx A-Fib, CHF s/p AICD pacemaker, constipation, COPD, prior frontal CVA, GERD s/p darlin, GI Bleed, High Cholesterol, Hypertension, Hypotension, CAD, BPH, achalasia who presents via EMS with complaining of syncope. Patient was at his primary care physician office today for checking INR r egarding taking Coumadin, felt dizzy and lightheaded and passed out with shaking noted. EMS reported no postictal confusion was alert and oriented. Patient had orthostatic hypotension with drop of blood pressure by 66mmHg on standing up and IV fluid was started by EMS. Patient states he had the same problem previously and was admitted at Hospital for several days without abnormal finding. Patient denies chest pain, shortness of breath, headache, blurred vision, nausea and vomiting, diarrhea, urinary symptom. Patient states he didn't feel good for the last couple days and complaining of dizziness and generalized weakness without 1 episode of chest pain yesterday and 2 episodes of dizziness and presyncope in his kitchen which improved with sitting. Digoxin level 1.6, INR 3.5. He has outpatient scripts for florinef, midodrine currently. Improved with dose reduction in gabapentin, oxycodone, and holding digoxin. Cardiac device interrogated - functioning ok. Still very weak. He overall feels ok today. Vitals Vitals Vital Signs Date Time Temp Pulse Resp B/P (MAP) Pulse Ox O2 Delivery O2 Flow Rate FiO2 08/21/19 12:21 69 116/71 08/21/19 11:48 Room Air 08/21/19 11:20 98.4 16 95 98.4 Physical Exam General: Alert, Oriented X3, Cooperative, No acute distress Heart: Regular rate (atrial paced), Normal S1, Normal S2 Lungs: Clear Abdomen: Soft, No tenderness Extremities: No cyanosis, No edema Skin: No breakdown, No significant lesion Labs LABS Laboratory Tests Test 08/21/19 06:15 Prothrombin Time 33.5 SEC (11.7-14.0) Prothromb Time International Ratio 3.3 (0.8-1.1) Assessment and Plan Assessmemt and Plan Problems Medical Problems: (1) Anticoagulated on Coumadin Status: Acute (2) Orthostatic hypotension Status: Acute (3) Syncope Status: Acute (4) Weakness Status: Acute Comment Review of Relevant I have reviewed the following items mckayla (where applicable) has been applied. Labs Laboratory Tests Test 08/19/19 12:58 08/19/19 17:45 08/19/19 20:30 08/20/19 03:30 White Blood Count 7.5 x10^3/uL (4.0-11.0) 4.4 x10^3/uL (4.0-11.0) Red Blood Count 5.07 x10^6/uL (4.30-5.70) 4.43 x10^6/uL (4.30-5.70) Hemoglobin 14.8 g/dL (13.0-17.5) 12.9 g/dL (13.0-17.5) Hematocrit 45.8 % (39.0-53.0) 39.7 % (39.0-53.0) Mean Corpuscular Volume 90 fL (79-100) 90 fL (79-100) Mean Corpuscular Hemoglobin 29 pg (25-35) 29 pg (25-35) Mean Corpuscular Hemoglobin Concent 32 g/dL (31-37) 32 g/dL (31-37) Red Cell Distribution Width 21.6 % (11.5-14.5) 21.8 % (11.5-14.5) Platelet Count 257 x10^3/uL (140-400) 228 x10^3/uL (140-400) Neutrophils (%) (Auto) 82 % (31-73) 54 % (31-73) Lymphocytes (%) (Auto) 8 % (24-48) 28 % (24-48) Monocytes (%) (Auto) 7 % (0-9) 11 % (0-9) Eosinophils (%) (Auto) 3 % (0-3) 6 % (0-3) Basophils (%) (Auto) 1 % (0-3) 1 % (0-3) Neutrophils # (Auto) 6.1 x10^3/uL (1.8-7.7) 2.4 x10^3/uL (1.8-7.7) Lymphocytes # (Auto) 0.6 x10^3/uL (1.0-4.8) 1.2 x10^3/uL (1.0-4.8) Monocytes # (Auto) 0.5 x10^3/uL (0.0-1.1) 0.5 x10^3/uL (0.0-1.1) Eosinophils # (Auto) 0.2 x10^3/uL (0.0-0.7) 0.3 x10^3/uL (0.0-0.7) Basophils # (Auto) 0.1 x10^3/uL (0.0-0.2) 0.0 x10^3/uL (0.0-0.2) Platelet Estimate Adequate (ADEQUATE) Anisocytosis Slight Prothrombin Time 35.3 SEC (11.7-14.0) 37.0 SEC (11.7-14.0) Prothromb Time International Ratio 3.5 (0.8-1.1) 3.7 (0.8-1.1) Sodium Level 145 mmol/L (136-145) 143 mmol/L (136-145) Potassium Level 4.4 mmol/L (3.5-5.1) 3.6 mmol/L (3.5-5.1) Chloride Level 108 mmol/L (98-107) 110 mmol/L (98-107) Carbon Dioxide Level 32 mmol/L (21-32) 29 mmol/L (21-32) Anion Gap 5 (6-14) 4 (6-14) Blood Urea Nitrogen 15 mg/dL (8-26) 13 mg/dL (8-26) Creatinine 1.2 mg/dL (0.7-1.3) 0.9 mg/dL (0.7-1.3) Estimated GFR (Cockcroft-Gault) 71.0 99.0 BUN/Creatinine Ratio 13 (6-20) Glucose Level 108 mg/dL (70-99) 123 mg/dL (70-99) Lactic Acid Level 1.2 mmol/L (0.4-2.0) Calcium Level 9.2 mg/dL (8.5-10.1) 8.0 mg/dL (8.5-10.1) Magnesium Level 2.0 mg/dL (1.8-2.4) Total Bilirubin 0.6 mg/dL (0.2-1.0) Aspartate Amino Transf (AST/SGOT) 18 U/L (15-37) Alanine Aminotransferase (ALT/SGPT) 20 U/L (16-63) Alkaline Phosphatase 78 U/L (46-116) Troponin I Quantitative < 0.017 ng/mL (0.000-0.055) < 0.017 ng/mL (0.000-0.055) < 0.017 ng/mL (0.000-0.055) Total Protein 7.2 g/dL (6.4-8.2) Albumin 3.5 g/dL (3.4-5.0) Albumin/Globulin Ratio 0.9 (1.0-1.7) Digoxin Level 1.6 ng/mL (0.9-2.0) Digoxin Last Dose Date Unk Digoxin Last Dose Time Unk Test 08/21/19 06:15 Prothrombin Time 33.5 SEC (11.7-14.0) Prothromb Time International Ratio 3.3 (0.8-1.1) Laboratory Tests Test 08/21/19 06:15 Prothrombin Time 33.5 SEC (11.7-14.0) Prothromb Time International Ratio 3.3 (0.8-1.1) Medications Current Medications Sodium Chloride 1,000 ml @ 1,000 mls/hr 1X ONCE IV Last administered on 08/19/19at 13:07; Start 08/19/19 at 12:45; Stop 08/19/19 at 13:44; Status DC Sodium Chloride 1,000 ml @ 125 mls/hr Q8H IV Last administered on 08/19/19 02:00; Start 08/19/19 at 14:17; Stop 08/20/19 at 14:16; Status DC Albuterol Sulfate (Ventolin Neb Soln) 2.5 mg PRN Q6HRS PRN INH SHORTNESS OF BREATH; Start 08/19/19 at 15:45 Amiodarone HCl (Cordarone) 200 mg DAILY PO Last administered on 08/21/19 08:27; Start 08/20/19 at 09:00 Digoxin (Lanoxin) 125 mcg DAILY PO ; Start 08/22/19 at 09:00 Fludrocortisone Acetate (Florinef) 0.1 mg DAILY PO Last administered on 08/21/19 08:28; Start 08/20/19 at 09:00 Albuterol/ Ipratropium (Duoneb) 3 ml RTQID NEB Last administered on 08/21/19 11:48; Start 08/19/19 at 16:00 Levetiracetam (Keppra) 500 mg BID PO Last administered on 08/21/19 08:28; Start 08/19/19 at 21:00 Magnesium Oxide (Magnesium Oxide) 400 mg DAILY PO Last administered on 08/21/19 08:27; Start 08/20/19 at 09:00 Midodrine (Proamatine) 2.5 mg [id number] PO Last administered on 08/21/19 12:21; Start 08/19/19 at 18:00 Montelukast Sodium (Singulair) 10 mg QHS PO Last administered on 08/20/19 20:41; Start 08/19/19 at 21:00 Simvastatin (Zocor) 20 mg QHS PO Last administered on 08/20/19 20:41; Start 08/19/19 at 21:00 Tamsulosin HCl (Flomax) 0.4 mg QHS PO Last administered on 08/20/19 20:41; Start 08/19/19 at 21:00 Trazodone HCl (Desyrel) 100 mg QHS PO Last administered on 08/20/19at 00:06; Start 08/19/19 at 21:00 Warfarin Sodium (Coumadin) 4 mg 1X WARF PO ; Start 08/19/19 at 16:00; Status UNV Non-Formulary Medication (Fluticasone/ Salmeterol (Advair 250-50 Diskus)) 1 puff BID IH ; Start 08/19/19 at 21:00; Status UNV Pantoprazole Sodium (Protonix) 40 mg DAILYAC PO Last administered on 08/21/19 07:05; Start 08/20/19 at 07:30 Warfarin Sodium (Coumadin Per Pharmacy) 1 each PRN DAILY PRN MC SEE COMMENTS Last administered on 08/21/19 10:47; Start 08/19/19 at 15:45 Budesonide (Pulmicort) 0.5 mg RTBID NEB Last administered on 08/21/19 07:53; Start 08/19/19 at 20:00 Warfarin Sodium (Coumadin - No Dose Today) 1 each 1X WARF ONCE MC ; Start 08/20/19 at 16:00; Stop 08/20/19 at 16:01; Status Cancel Influenza Virus Vaccine Quadrival (Afluria Quad 2019-20 (3yr Up) Syringe) 0.5 ml ONCE ONCE VAX IM Last administered on 08/19/19 20:55; Start 08/19/19 at 16:30; Stop 08/19/19 at 16:31; Status DC Gabapentin (Neurontin) 300 mg QHS PO Last administered on 08/20/19 20:41; Start 08/19/19 at 21:30 Oxycodone HCl (Roxicodone) 10 mg PRN TID PRN PO MODERATE TO SEVERE PAIN Last ad ministered on 08/21/19 09:58; Start 08/19/19 at 21:30 Multi-Ingredient Mouthwash/Gargle (Gi Cocktail) 20 ml 1X ONCE SWSW ; Start 08/19/19 at 22:30; Stop 08/19/19 at 22:31; Status DC Trazodone HCl (Desyrel) 100 mg PRN QHS PRN PO SLEEP Last administered on 08/20/19 20:42; Start 08/20/19 at 00:00 Warfarin Sodium (Coumadin - No Dose Today) 1 each 1X WARF ONCE MC Last administered on 08/20/19at 16:00; Start 08/20/19 at 16:00; Stop 08/20/19 at 16:01; Status DC Docusate Sodium (Colace) 100 mg BID PO Last administered on 08/21/19at 08:27; Start 08/20/19 at 21:00 Magnesium Hydroxide (Milk Of Magnesia) 2,400 mg PRN DAILY PRN PO CONSTIPATION Last administered on 08/20/19at 20:41; Start 08/20/19 at 20:15 Warfarin Sodium (Coumadin - No Dose Today) 1 each 1X WARF ONCE MC ; Start 08/21/19 at 16:00; Stop 08/21/19 at 16:01 Active Scripts Active Fludrocortisone Acetate 0.1 Mg Tablet 0.1 Mg PO DAILY 30 Days Keppra (Levetiracetam) 500 Mg Tablet 500 Mg PO BID 30 Days Gabapentin 300 Mg Capsule 300 Mg PO TID 90 Days Coumadin (Warfarin Sodium) 4 Mg Tablet 4 Mg PO 1X WARF 30 Days Flomax (Tamsulosin Hcl) 0.4 Mg Cap.er.24h 0.4 Mg PO QHS 30 Days Montelukast Sodium Tablet (Montelukast Sodium) 10 Mg Tablet 10 Mg PO QHS 30 Days Advair 250-50 Diskus (Fluticasone/Salmeterol) 1 Each Disk.w.dev 1 Puff IH BID Amiodarone Hcl 200 Mg Tablet 200 Mg PO DAILY 30 Days Midodrine Hcl 2.5 Mg Tablet 2.5 Mg PO [id number] 30 Days Duoneb 0.5-3(2.5) Mg/3 Ml (Albuterol/Ipratropium) 3 Ml Ampul.neb 3 Ml NEB RTQID 30 Days [Pantoprazole] 40 MG Tablet.dr 40 Mg PO DAILYAC 30 Days Proair Hfa Inhaler (Albuterol Sulfate) 8.5 Gm Hfa.aer.ad 1 Puff INH PRN Q6HRS PRN Reported Mag-Oxide (Magnesium Oxide) 400 Mg Tablet 400 Mg PO DAILY Trazodone Hcl 100 Mg Tablet 100 Mg PO QHS Oxycodone Hcl 20 Mg Tablet 20 Mg PO TID PRN PRN Simvastatin 20 Mg Tablet 1 Tab PO QHS Digoxin 125 Mcg Tablet 125 Mcg PO DAILY Vitals/I & O Vital Sign - Last 24 Hours 08/20/19 08/20/19 08/20/19 08/20/19 12:57 13:57 14:30 16:47 Temp 98.1 98.1 Pulse 69 Resp 16 B/P (MAP) 104/61 (75) Pulse Ox 96 96 96 O2 Delivery Room Air Room Air Room Air Room Air 08/20/19 08/20/19 08/20/19 08/20/19 17:08 19:11 19:30 20:06 Temp 97.9 97.9 Pulse 69 69 Resp 18 B/P (MAP) 104/61 104/64 (77) Pulse Ox 95 97 O2 Delivery Room Air Room Air Room Air 08/20/19 08/20/19 08/21/19 08/21/19 20:07 23:26 03:00 07:00 Temp 98.1 98.9 97.3 98.1 98.9 97.3 Pulse 73 69 71 Resp 20 18 B/P (MAP) 118/64 (82) 110/64 (79) 140/85 (103) Pulse Ox 96 96 94 O2 Delivery Room Air Room Air Room Air Room Air 08/21/19 08/21/19 08/21/19 08/21/19 07:05 07:54 08:00 08:27 Pulse 69 69 B/P (MAP) 110/64 140/85 O2 Delivery Room Air Room Air 08/21/19 08/21/19 08/21/19 08/21/19 09:58 10:58 11:20 11:48 Temp 98.4 98.4 Pulse 69 Resp 15 16 B/P (MAP) 116/71 (86) Pulse Ox 94 95 95 O2 Delivery Room Air Room Air Room Air Room Air 08/21/19 12:21 Pulse 69 B/P (MAP) 116/71 Intake and Output 08/20/19 08/20/19 08/21/19 15:00 23:00 07:00 Intake Total 480 ml 400 ml Output Total 100 ml Balance 480 ml 400 ml -100 ml GEORGE COOPER MD Aug 21, 2019 12:33
--- NOTE | 2019-08-21 14:06 | PDOC ---
PROGRESS NOTES Assessment Assessment Syncope. Dizziness. Orthostatic hypotension. Chest pain. CAD. CA. COPD. HTN. HLD. AFib. Hx of PE. 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 Pacemaker in site. Seizure? RECOMMENDATIONS/PLAN: Lab: see orders. Ortho HR and BP. EEG, outpatient base [place]. He has been treated with Coumadin. Continue Statin HS. Treat medical diseases. Consulted Cardiology. History of Present Illness This is a 79 -year -old AA male with medical diseases including A-Fib, CHF s/p AICD pacemaker, constipation, COPD, prior frontal CVA, GERD s/p darlin, GI Bleed, High Cholesterol, Hypertension, Hypotension, CAD, BPH, achalasia who presents to the ER of [facility] via EMS with complaining of syncope, falls, and chest discomfort. He was at his primary care physician office on 08/19/19 for checking INR regarding taking Coumadin, he felt dizzy and lightheaded and passed out with shaking noted. EMS reported no postictal confusion was alert and oriented. Patient had orthostatic hypotension with drop of blood pressure by 66 mmHg on standing up and IV fluid was started by EMS. Patient states he had the same problem previously and was admitted at Hospital for several days without abnormal finding. Patient denies shortness of breath, headache, blurred vision, nausea and vomiting, diarrhea, urinary symptom. He stated he had a similar episode before and he has been having symptoms of dizziness and light headiness for about 2 months. He stated he had aura symptoms of coming dizziness from his feet to head. On exam on 08/20/19, he complained chest pain. On 08/21/19: He was able to walk in room with a walker. Past Medical History Cardiovascular: AFIB, CAD, CHF, HTN, CA, Hyperlipidemia, Other Pulmonary: Bronchitis, COPD CENTRAL NERVOUS SYSTEM: CVA, Periperal neuropathy, Other GI: Constipation, GERD Heme/Onc: No pertinent hx, Other Hepatobiliary: No pertinent hx Psych: Addictions Musculoskeletal: low back pain Rheumatologic: No pertinent hx Infectious disease: No pertinent hx Renal/: Benign prostatic enlarg. Past Surgical History Pacemaker, CABG, Cataract Removal, Hernia Repair, Other Family History Heart Disease Allergies Coded Allergies: Iodinated Contrast Media (Verified Allergy, Severe, anaphalaxis, short of air, 03/04/19) adhesive (Verified Allergy, Severe, PAINFUL SKIN IRRITATION , 03/04/19) latex (Verified Allergy, Intermediate, Hives, 03/04/19) morphine (Verified Allergy, Intermediate, 08/19/19) MEDICATIONS: Refer to MAR SOCIAL HISTORY: Denies smoking, drinking, and illicit drug use. REVIEW OF SYSTEMS: Constitutional: No malnutrition, cachexia. Head: No traumatic brain or head injury. Skin: No edema, or rash. Ear: No infection. Eyes: No vision loss or color blindness. Nose: No bleeding or purulent discharges. Hearing: Hearing decrease. Neck: No injury. Cardiac: CA, CAD, AFib, Pacemaker Placement, HTN, HLD. Pulmonary: COPD. GI: No GI ulcer, GI bleeding. Urinary/genital: UTI. Endocrinologic: No cousin face, craniofacial dysmorphism, polydactyly. Skeletomuscular: Generalized weakness. Neurological: see HP. Psychiatric: Denies drug use/abuse. Otherwise, not [id number] review of systems. PHYSICAL EXAMINATION: General appearance is in subacute distress. HEENT: Normocephalic and nontraumatic. Eyes, nose, ears, and throat are unremarkable. Neck is supple. No lymphadenopathy. No crepitus. Cardiovascular: S1, S2. Pulmonary: Clear to auscultation bilaterally. Abdomen: Bowel sounds are positive. Abdomen is soft, nontender, and nondistended. Extremities: No rash, lesions, or edema. No restriction of range of motion NEUROLOGICAL EXAMINATION: Alert Oriented to time, place and person. PERRL. EOMI. CN: no focal findings. Muscle tone: within normal. Muscle strength: 5- DTR: 1-2 Plantar reflex: Flexor response bilaterally Gait: Able to walk with a walker. Sensory exam: no abnormal findings. No cerebellar signs elicited. F-T-N test fine. Objective Objective Vital Signs Date Time Temp Pulse Resp B/P (MAP) Pulse Ox O2 Delivery O2 Flow Rate FiO2 08/21/19 12:21 69 116/71 08/21/19 11:48 Room Air 08/21/19 11:20 98.4 16 95 98.4 Intake and Output 08/21/19 07:00 Intake Total 880 ml Output Total 100 ml Balance 780 ml Intake Oral 880 ml Output Urine Total 100 ml # Voids 1 Vitals Signs Vitals VS - Last 72 Hours, by Label Date Time Temp Pulse Resp B/P (MAP) Pulse Ox O2 Delivery O2 Flow Rate FiO2 08/21/19 12:21 69 116/71 08/21/19 11:48 Room Air 08/21/19 11:20 98.4 69 16 116/71 (86) 95 Room Air 98.4 08/21/19 10:58 15 95 Room Air 08/21/19 09:58 94 Room Air 08/21/19 08:27 69 140/85 08/21/19 08:00 Room Air 08/21/19 07:54 Room Air 08/21/19 07:05 69 110/64 08/21/19 07:00 97.3 71 18 140/85 (103) 94 Room Air 97.3 08/21/19 03:00 98.9 69 110/64 (79) 96 Room Air 98.9 08/20/19 23:26 98.1 73 20 118/64 (82) 96 Room Air 98.1 08/20/19 20:07 Room Air 08/20/19 20:06 97 Room Air 08/20/19 19:30 97.9 69 18 104/64 (77) 95 Room Air 97.9 08/20/19 19:11 Room Air 08/20/19 17:08 69 104/61 08/20/19 16:47 Room Air 08/20/19 14:30 98.1 69 16 104/61 (75) 96 Room Air 98.1 08/20/19 13:57 96 Room Air 08/20/19 12:57 96 Room Air 08/20/19 12:08 69 93/57 08/20/19 12:01 Room Air 08/20/19 11:00 97.4 69 16 93/57 (69) 96 Room Air 97.4 08/20/19 08:04 69 118/77 08/20/19 08:00 Room Air 08/20/19 07:23 96 Room Air 08/20/19 07:00 97.6 69 16 118/77 (91) 95 Room Air 97.6 08/20/19 07:00 69 118/77 Laboratory Laboratory Laboratory Tests Test 08/21/19 06:15 Prothrombin Time 33.5 SEC (11.7-14.0) Prothromb Time International Ratio 3.3 (0.8-1.1) Medication Medications Current Medications Digoxin (Lanoxin) 125 mcg DAILY PO ; Start 08/22/19 at 09:00; Stop 08/21/19 at 12:31; Status DC Docusate Sodium (Colace) 100 mg BID PO Last administered on 08/21/19at 08:27; Start 08/20/19 at 21:00 Magnesium Hydroxide (Milk Of Magnesia) 2,400 mg PRN DAILY PRN PO CONSTIPATION Last administered on 08/20/19at 20:41; Start 08/20/19 at 20:15 Warfarin Sodium (Coumadin - No Dose Today) 1 each 1X WARF ONCE MC Last admin istered on 08/20/19at 16:00; Start 08/20/19 at 16:00; Stop 08/20/19 at 16:01; Status DC Warfarin Sodium (Coumadin - No Dose Today) 1 each 1X WARF ONCE MC ; Start 08/20/19 at 16:00; Stop 08/20/19 at 16:01; Status Cancel Warfarin Sodium (Coumadin - No Dose Today) 1 each 1X WARF ONCE MC ; Start 08/21/19 at 16:00; Stop 08/21/19 at 16:01 Comment Review of Relevant I have reviewed the following items mckayla (where applicable) has been applied. PAUL FRENCH MD Aug 21, 2019 14:06
[2019-08-21 15:00] VITALS: BP 139/73
[2019-08-21 19:00] VITALS: BP 107/62
[2019-08-21] MEDS: TAMSULOSIN 0.4 MG CAP.ER.24H. PO SCH (20:29)
[2019-08-21] MEDS: SIMVASTATIN 20 MG TABLET PO SCH (20:29)
[2019-08-21] MEDS: GABAPENTIN 300 MG CAPSULE. PO SCH (20:29)
[2019-08-21] MEDS: MONTELUKAST SODIUM 10 MG TABLET. PO SCH (20:29)
[2019-08-21] MEDS: traZODone 100 MG TABLET. PO SCH (20:29)
[2019-08-21 23:00] VITALS: BP 126/72
[2019-08-22 03:00] VITALS: BP 126/87
[2019-08-22] MEDS: IPRATRPIUM/ALBUTEROL 0.5/2.5MG 3 ML NEBU. NEB SCH ×2 (06:09→11:53)
[2019-08-22] MEDS: BUDESONIDE 0.5 MG/2 ML NEBU. NEB SCH (06:09)
[2019-08-22] MEDS: MIDODRINE 2.5 MG TABLET PO SCH (06:35)
[2019-08-22] MEDS: PANTOPRAZOLE 40 MG TABLET.DR. PO SCH (06:35)
[2019-08-22 07:00] VITALS: BP 114/71
[2019-08-22] MEDS ORDERED: ANTI-COAG MONITOR BY PHARMACY. MC PRN (07:30)
[2019-08-22] MEDS: FLUDROCORTISONE 0.1 MG TABLET PO SCH (08:16)
[2019-08-22] MEDS: AMIODARONE HCL 200 MG TABLET. PO SCH (08:17)
[2019-08-22] MEDS: DOCUSATE SODIUM 100 MG CAPSULE. PO SCH (08:17)
[2019-08-22] MEDS: oxyCODONE IR 5 MG TABLET PO PRN (08:17)
[2019-08-22] MEDS: MAGNESIUM OXIDE 400 MG TABLET PO SCH (08:17)
[2019-08-22] MEDS: levETIRAcetam 500 MG TABLET PO SCH (08:17)
[2019-08-22] MEDS ORDERED: DIGOXIN 125 MCG TABLET. PO SCH (09:00)
[2019-08-22] MEDS ORDERED: GABA300C18 PO (09:13)
--- NOTE | 2019-08-22 09:14 | PDOC ---
PROGRESS NOTES Chief Complaint Chief Complaint A/P: Syncope - sounds like a mixed picture. No post-ictal activity, lactate negative. Could be vasovagal. Neurology and cardiology recs noted Supratherapeutic INR - will hold coumadin for today Elevated digoxin level - goal should really be 0.6-1.2, now 1.6, will hold digoxin for a few days. Difficult to dose with his coumadin and amiodarone AFIB - paced with underlying AFIB, rate controlled AICD - [employer] NICM - compensated. NYHA 1-2. EF 60-65% HLD - cont statin s/p AAA and Iliac artery aneurysm repair. Stable. COPD - controlled. Will cont nebs Seizures - on keprra Recent PE - earlier in 2019. On coumadin Nontraumatic fall - more than 2 in a year, needs fall plan. Placement may be necessary at some point. PT FEN - Cardiac diet PPX - warfarin FULL CODE Dispo - CVC History of Present Illness History of Present Illness Mr Sterling is a 79 year old male w/PMHx A-Fib, CHF s/p AICD pacemaker, constipation, COPD, prior frontal CVA, GERD s/p darlin, GI Bleed, High Cholesterol, Hypertension, Hypotension, CAD, BPH, achalasia who presents via EMS with complaining of syncope. Patient was at his primary care physician office today for checking INR r egarding taking Coumadin, felt dizzy and lightheaded and passed out with shaking noted. EMS reported no postictal confusion was alert and oriented. Patient had orthostatic hypotension with drop of blood pressure by 66mmHg on standing up and IV fluid was started by EMS. Patient states he had the same problem previously and was admitted at Hospital for several days without abnormal finding. Patient denies chest pain, shortness of breath, headache, blurred vision, nausea and vomiting, diarrhea, urinary symptom. Patient states he didn't feel good for the last couple days and complaining of dizziness and generalized weakness without 1 episode of chest pain yesterday and 2 episodes of dizziness and presyncope in his kitchen which improved with sitting. Digoxin level 1.6, INR 3.5. He has outpatient scripts for florinef, midodrine currently. Seen by cardiology and neurology in consultation, underwent echo: The left ventricular systolic function is normal and the ejection fraction is within normal range. The Ejection Fraction is 60-65%. There is normal LV segmental wall motion. There is a pacer/ICD lead noted in the RA/RV Doppler and Color Flow revealed mild tricuspid regurgitation with an estimated PAP of 34 mmHg. Improved with dose reduction in gabapentin, oxycodone, and holding digoxin. Cardiac device interrogated - functioning ok. Still very weak. He overall feels ok today. Wishes for home with home health Vitals Vitals Vital Signs Date Time Temp Pulse Resp B/P (MAP) Pulse Ox O2 Delivery O2 Flow Rate FiO2 08/22/19 08:17 93 Room Air 08/22/19 08:17 70 114/71 08/22/19 07:00 97.6 16 97.6 Physical Exam General: Alert, Oriented X3, Cooperative, No acute distress Heart: Regular rate (atrial paced), Normal S1, Normal S2 Lungs: Clear Abdomen: Soft, No tenderness Extremities: No cyanosis, No edema Skin: No breakdown, No significant lesion Labs LABS Laboratory Tests Test 08/22/19 04:20 Prothrombin Time 26.0 SEC (11.7-14.0) Prothromb Time International Ratio 2.4 (0.8-1.1) Assessment and Plan Assessmemt and Plan Problems Medical Problems: (1) AAA (abdominal aortic aneurysm) Status: Acute (2) Afib Status: Chronic (3) Anticoagulated on Coumadin Status: Acute (4) CAD (coronary artery disease) Status: Chronic (5) Chest pain Status: Acute (6) COPD (chronic obstructive pulmonary disease) Status: Chronic (7) Dizziness Status: Acute (8) Elevated digoxin level Status: Acute (9) HLD (hyperlipidemia) Status: Chronic (10) HTN (hypertension) Status: Chronic (11) Iliac artery aneurysm Status: Acute (12) NICM (nonischemic cardiomyopathy) Status: Chronic (13) Orthostatic hypotension Status: Acute (14) Orthostatic hypotension Status: Acute (15) Seizures Status: Acute (16) Supratherapeutic INR Status: Acute (17) Syncope Status: Acute (18) Syncope Status: Acute (19) Weakness Status: Acute Surgical Problems: (1) AICD (automatic cardioverter/defibrillator) present Status: Chronic Comment Review of Relevant I have reviewed the following items mckayla (where applicable) has been applied. Labs Laboratory Tests Test 08/21/19 06:15 08/22/19 04:20 Prothrombin Time 33.5 SEC (11.7-14.0) 26.0 SEC (11.7-14.0) Prothromb Time International Ratio 3.3 (0.8-1.1) 2.4 (0.8-1.1) Creatine Kinase 40 U/L (39-308) Thyroid Stimulating Hormone (TSH) 0.137 uIU/mL (0.358-3.74) Laboratory Tests Test 08/22/19 04:20 Prothrombin Time 26.0 SEC (11.7-14.0) Prothromb Time International Ratio 2.4 (0.8-1.1) Medications Current Medications Sodium Chloride 1,000 ml @ 1,000 mls/hr 1X ONCE IV Last administered on 08/19/19at 13:07; Start 08/19/19 at 12:45; Stop 08/19/19 at 13:44; Status DC Sodium Chloride 1,000 ml @ 125 mls/hr Q8H IV Last administered on 08/19/19at 02:00; Start 08/19/19 at 14:17; Stop 08/20/19 at 14:16; Status DC Albuterol Sulfate (Ventolin Neb Soln) 2.5 mg PRN Q6HRS PRN INH SHORTNESS OF BREATH; Start 08/19/19 at 15:45 Amiodarone HCl (Cordarone) 200 mg DAILY PO Last administered on 08/22/19at 08:17; Start 08/20/19 at 09:00 Digoxin (Lanoxin) 125 mcg DAILY PO ; Start 08/22/19 at 09:00; Stop 08/21/19 at 12:31; Status DC Fludrocortisone Acetate (Florinef) 0.1 mg DAILY PO Last administered on at 08:16; Start 08/20/19 at 09:00 Albuterol/ Ipratropium (Duoneb) 3 ml RTQID NEB Last administered on 08/22/19at 06:09; Start 08/19/19 at 16:00 Levetiracetam (Keppra) 500 mg BID PO Last administered on 08/22/19at 08:17; Start 08/19/19 at 21:00 Magnesium Oxide (Magnesium Oxide) 400 mg DAILY PO Last administered on 08/22/19at 08:17; Start 08/20/19 at 09:00 Midodrine (Proamatine) 2.5 mg [id number] PO Last administered on 08/22/19 06:35; Start 08/19/19 at 18:00 Montelukast Sodium (Singulair) 10 mg QHS PO Last administered on 08/21/19 20:29; Start 08/19/19 at 21:00 Simvastatin (Zocor) 20 mg QHS PO Last administered on 08/21/19 20:29; Start 08/19/19 at 21:00 Tamsulosin HCl (Flomax) 0.4 mg QHS PO Last administered on 08/21/19 20:29; Start 08/19/19 at 21:00 Trazodone HCl (Desyrel) 100 mg QHS PO Last administered on 08/21/19 20:29; Start 08/19/19 at 21:00 Warfarin Sodium (Coumadin) 4 mg 1X WARF PO ; Start 08/19/19 at 16:00; Status UNV Non-Formulary Medication (Fluticasone/ Salmeterol (Advair 250-50 Diskus)) 1 puff BID IH ; Start 08/19/19 at 21:00; Status UNV Pantoprazole Sodium (Protonix) 40 mg DAILYAC PO Last administered on 08/22/19 06:35; Start 08/20/19 at 07:30 Warfarin Sodium (Coumadin Per Pharmacy) 1 each PRN DAILY PRN MC SEE COMMENTS Last administered on 08/21/19at 10:47; Start 08/19/19 at 15:45 Budesonide (Pulmicort) 0.5 mg RTBID NEB Last administered on 08/22/19 06:09; Start 08/19/19 at 20:00 Warfarin Sodium (Coumadin - No Dose Today) 1 each 1X WARF ONCE MC ; Start 08/20/19 at 16:00; Stop 08/20/19 at 16:01; Status Cancel Influenza Virus Vaccine Quadrival (Afluria Quad 2019-20 (3yr Up) Syringe) 0.5 ml ONCE ONCE VAX IM Last administered on 08/19/19at 20:55; Start 08/19/19 at 16:30; Stop 08/19/19 at 16:31; Status DC Gabapentin (Neurontin) 300 mg QHS PO Last administered on 08/21/19at 20:29; Start 08/19/19 at 21:30 Oxycodone HCl (Roxicodone) 10 mg PRN TID PRN PO MODERATE TO SEVERE PAIN Last administered on 08/22/19 08:17; Start 08/19/19 at 21:30 Multi-Ingredient Mouthwash/Gargle (Gi Cocktail) 20 ml 1X ONCE SWSW ; Start 08/19/19 at 22:30; Stop 08/19/19 at 22:31; Status DC Trazodone HCl (Desyrel) 100 mg PRN QHS PRN PO SLEEP Last administered on 08/20/19at 20:42; Start 08/20/19 at 00:00 Warfarin Sodium (Coumadin - No Dose Today) 1 each 1X WARF ONCE MC Last administered on 08/20/19at 16:00; Start 08/20/19 at 16:00; Stop 08/20/19 at 16:01; Status DC Docusate Sodium (Colace) 100 mg BID PO Last administered on 08/22/19at 08:17; Start 08/20/19 at 21:00 Magnesium Hydroxide (Milk Of Magnesia) 2,400 mg PRN DAILY PRN PO CONSTIPATION Last administered on 08/20/19at 20:41; Start 08/20/19 at 20:15 Warfarin Sodium (Coumadin - No Dose Today) 1 each 1X WARF ONCE MC ; Start 08/21/19 at 16:00; Stop 08/21/19 at 16:01; Status DC Info (Anti-Coagulation Monitoring By Pharmacy) 1 each PRN DAILY PRN MC SEE COMMENTS; Start 08/22/19 at 07:30; Stop 08/22/19 at 07:31; Status DC Active Scripts Active Gabapentin 300 Mg Capsule 300 Mg PO DAILY 90 Days Fludrocortisone Acetate 0.1 Mg Tablet 0.1 Mg PO DAILY 30 Days Keppra (Levetiracetam) 500 Mg Tablet 500 Mg PO BID 30 Days Coumadin (Warfarin Sodium) 4 Mg Tablet 4 Mg PO 1X WARF 30 Days Flomax (Tamsulosin Hcl) 0.4 Mg Cap.er.24h 0.4 Mg PO QHS 30 Days Montelukast Sodium Tablet (Montelukast Sodium) 10 Mg Tablet 10 Mg PO QHS 30 Days Advair 250-50 Diskus (Fluticasone/Salmeterol) 1 Each Disk.w.dev 1 Puff IH BID Amiodarone Hcl 200 Mg Tablet 200 Mg PO DAILY 30 Days Midodrine Hcl 2.5 Mg Tablet 2.5 Mg PO [id number] 30 Days Duoneb 0.5-3(2.5) Mg/3 Ml (Albuterol/Ipratropium) 3 Ml Ampul.neb 3 Ml NEB RTQID 30 Days [Pantoprazole] 40 MG Tablet.dr 40 Mg PO DAILYAC 30 Days Proair Hfa Inhaler (Albuterol Sulfate) 8.5 Gm Hfa.aer.ad 1 Puff INH PRN Q6HRS PRN Reported Mag-Oxide (Magnesium Oxide) 400 Mg Tablet 400 Mg PO DAILY Trazodone Hcl 100 Mg Tablet 100 Mg PO QHS Oxycodone Hcl 20 Mg Tablet 20 Mg PO TID PRN PRN Simvastatin 20 Mg Tablet 1 Tab PO QHS Vitals/I & O Vital Sign - Last 24 Hours 08/21/19 08/21/19 08/21/19 08/21/19 09:58 10:58 11:20 11:48 Temp 98.4 98.4 Pulse 69 Resp 15 16 B/P (MAP) 116/71 (86) Pulse Ox 94 95 95 O2 Delivery Room Air Room Air Room Air Room Air 08/21/19 08/21/19 08/21/19 08/21/19 12:21 15:00 15:48 17:04 Temp 97.5 97.5 Pulse 69 73 69 Resp 18 B/P (MAP) 116/71 139/73 (95) 119/71 Pulse Ox 94 O2 Delivery Room Air Room Air 08/21/19 08/21/19 08/21/19 08/21/19 19:00 19:42 19:43 20:00 Temp 98.2 98.2 Pulse 69 Resp 16 B/P (MAP) 107/62 (77) Pulse Ox 94 96 96 O2 Delivery Room Air Room Air Room Air Room Air 08/21/19 08/22/19 08/22/19 08/22/19 23:00 03:00 06:10 06:35 Temp 98.8 98.4 98.8 98.4 Pulse 69 69 69 Resp 16 16 B/P (MAP) 126/72 (90) 126/87 (100) 126/87 Pulse Ox 96 95 97 O2 Delivery Room Air Room Air Room Air 08/22/19 08/22/19 08/22/19 08/22/19 07:00 08:00 08:17 08:17 Temp 97.6 97.6 Pulse 70 70 Resp 16 B/P (MAP) 114/71 (85) 114/71 Pulse Ox 93 93 O2 Delivery Room Air Room Air Room Air Intake and Output 08/21/19 08/21/19 08/22/19 15:00 23:00 07:00 Intake Total 150 ml 0 ml Output Total 100 ml Balance 150 ml -100 ml GEORGE COOPER MD Aug 22, 2019 09:14
--- NOTE | 2019-08-22 09:43 | CARD ---
MR#: [id number] Date of Study: 08/22/2019 Ordering Physician: GEORGE COOPER, Referring Physician: GEORGE COOPER, Janneth: Brandie Arenas APPROVED REPORT EXAM: Two-dimensional and M-mode echocardiogram with Doppler and color Doppler. Other Information HR: 70bpm Technically limited study due to body habitus. INDICATION Syncope 2D DIMENSIONS RVDd3.2 (2.9-3.5cm)Left Atrium(2D)5.1 (1.6-4.0cm) IVSd2.0 (0.7-1.1cm)Aortic Root(2D)2.7 (2.0-3.7cm) LVDd5.0 (3.9-5.9cm)LVOT Diameter2.0 (1.8-2.4cm) PWd1.4 (0.7-1.1cm)LVDs3.2 (2.5-4.0cm) FS (%) 35.2 %SV74.4 ml LVEF(%)64.3 (>50%) Aortic Valve AoV Peak John.108.8cm/sAoV VTI23.4cm AO Peak GR.4.7mmHgLVOT Peak John.69.7cm/s LVOT VTI 11.97cmAO Mean GR.4mmHg OFELIA (VMAX)1.73ew7GPJ (VTI)1.62cm2 Mitral Valve MV E Icfwljcs46.1cm/sMV DECEL GKMB998ti MV A Qzdydmdc61.2cm/sMV KVF30li E/A Ratio2.5MVA (PHT)2.54cm2 TDI E/Lateral E'4.8E/Medial E'9.3 Pulmonary Valve PV Peak Ajqwoghy36.4cm/sPV Peak Grad.3mmHg Tricuspid Valve TR P. Dollzdvr486bv/sRAP BNHYNJPL0xyHj TR Peak Gr.85jdQuUDHT28ysCg Pulmonary Vein S1 Dyqrdayk07.8cm/sD2 Shxhdott79.2cm/s PVa tozwadqt517nhky LEFT VENTRICLE The left ventricle is normal size. There is mild to moderate concentric left ventricular hypertrophy. The left ventricular systolic function is normal and the ejection fraction is within normal range. T he Ejection Fraction is 60-65%. There is normal LV segmental wall motion. Tissue Doppler imaging reve als moderate left ventricular diastolic dysfunction. RIGHT VENTRICLE The right ventricle is normal size. There is normal right ventricular wall thickness. The right ventr icular systolic function is normal. There is a pacer/ICD lead noted in the RA/RV ATRIA The left atrium is mild to moderately dilated. The right atrium is mildly dilated. The interatrial se ptum is intact with no evidence for an atrial septal defect or patent foramen ovale as noted on 2-D o r Doppler imaging. AORTIC VALVE The aortic valve is thickened but opens well. Doppler and Color Flow revealed no significant aortic r egurgitation. There is no significant aortic valvular stenosis. MITRAL VALVE The mitral valve is thickened but opens well. There is no evidence of mitral valve prolapse. There is no mitral valve stenosis. Doppler and Color-flow revealed mild mitral regurgitation. TRICUSPID VALVE The tricuspid valve is normal in structure and function. Doppler and Color Flow revealed mild tricusp id regurgitation with an estimated PAP of 34 mmHg. There is no tricuspid valve stenosis. PULMONIC VALVE The pulmonic valve is not well visualized. Doppler and Color Flow revealed no pulmonic valvular regur gitation. There is no pulmonic valvular stenosis. GREAT VESSELS The aortic root is normal in size. The ascending aorta is normal in size. The IVC is normal in size a nd collapses >50% with inspiration. PERICARDIAL EFFUSION There is no pleural effusion. There is no evidence of significant pericardial effusion. Critical Notification Critical Value: No <Conclusion> The left ventricular systolic function is normal and the ejection fraction is within normal range. Th e Ejection Fraction is 60-65%. There is normal LV segmental wall motion. There is a pacer/ICD lead noted in the RA/RV Doppler and Color Flow revealed mild tricuspid regurgitation with an estimated PAP of 34 mmHg. Signed by : Felix Saleem, Electronically Approved : 08/22/2019 09:43:35
[2019-08-22 11:00] VITALS: BP 118/75
--- NOTE | 2019-08-22 13:24 | NUR ---
Pharmacy Warfarin Dosing Note S:Pharmacy consulted to assist with anticoagulation therapy started with target INR: 2 -3 O:GENIA MCKENZIE is a 79 year old M with Atrial Fibrillation h/o PE LABS: Last INR: 2.4 Last HGB: 12.9 Last HCT: 39.7 Last PLT: 228 Last dose of 3 mg given on 08/19/19 at 1600 Previous Regimen: 3 mg/day Vitamin K given: N Drug Interaction Changes: Same Interacting Drug Ongoing Drug Interactions: Amiodarone A:INR of 2.4 is below desired range. Target range for this patient is: 2 -3 P: Warfarin dose: 3 mg Today at 1600 Bridge Therapy: None Next INR due TOMORROW. Pharmacy anticoagulation service will continue to follow. ONEYDA GUEVARA [facility], 08/22/19 [id number]
--- NOTE | 2019-08-22 13:31 | NUR ---
Discharge Note: GENIA MCKENZIE Discharge instructions and discharge home medications reviewed with Patient and a copy given. All questions have been answered and understanding verbalized. The following instructions and handouts were given: midodrine, gabapentin Patient discharged to home with home health with daughter via wheelchair
[2019-08-22] MEDS ORDERED: WARFARIN 3 MG TABLET. PO ONE (16:00)
--- NOTE | 2019-08-22 19:56 | PDOC3 ---
Discharge Summary Visit Information Date of Admission: Aug 19, 2019 Date of Discharge: Aug 22, 2019 Admitting Diagnosis: Syncope Final Diagnosis Problems Medical Problems: (1) AAA (abdominal aortic aneurysm) Status: Acute (2) Afib Status: Chronic (3) Anticoagulated on Coumadin Status: Acute (4) CAD (coronary artery disease) Status: Chronic (5) Chest pain Status: Acute (6) COPD (chronic obstructive pulmonary disease) Status: Chronic (7) Dizziness Status: Acute (8) Elevated digoxin level Status: Acute (9) HLD (hyperlipidemia) Status: Chronic (10) HTN (hypertension) Status: Chronic (11) Iliac artery aneurysm Status: Acute (12) NICM (nonischemic cardiomyopathy) Status: Chronic (13) Orthostatic hypotension Status: Acute (14) Orthostatic hypotension Status: Acute (15) Seizures Status: Acute (16) Supratherapeutic INR Status: Acute (17) Syncope Status: Acute (18) Syncope Status: Acute (19) Weakness Status: Acute Surgical Problems: (1) AICD (automatic cardioverter/defibrillator) present Status: Chronic Brief Hospital Course Allergies Allergies Coded Allergies Type Severity Reaction Last Updated Verified Iodinated Contrast Media Allergy Severe anaphalaxis, short of air 03/04/19 Yes adhesive Allergy Severe PAINFUL SKIN IRRITATION 03/04/19 Yes latex Allergy Intermediate Hives 03/04/19 Yes morphine Allergy Intermediate 08/19/19 Yes Vital Signs Vital Signs Date Time Temp Pulse Resp B/P (MAP) Pulse Ox O2 Delivery O2 Flow Rate FiO2 08/22/19 11:53 97 Room Air 08/22/19 11:00 98.2 70 16 118/75 (89) 98.2 Lab Results Laboratory Tests Test 08/21/19 06:15 08/22/19 04:20 Prothrombin Time 33.5 SEC (11.7-14.0) 26.0 SEC (11.7-14.0) Prothromb Time International Ratio 3.3 (0.8-1.1) 2.4 (0.8-1.1) Creatine Kinase 40 U/L (39-308) Thyroid Stimulating Hormone (TSH) 0.137 uIU/mL (0.358-3.74) Thyroxine (T4) 8.7 ug/dL (4.5-12.0) Free Triiodothyronine (T3) pg/mL 1.15 pg/mL (2.18-3.98) Laboratory Tests Test 08/22/19 04:20 Prothrombin Time 26.0 SEC (11.7-14.0) Prothromb Time International Ratio 2.4 (0.8-1.1) Thyroxine (T4) 8.7 ug/dL (4.5-12.0) Free Triiodothyronine (T3) pg/mL 1.15 pg/mL (2.18-3.98) Brief Hospital Course Mr Sterling is a 79 year old male w/PMHx A-Fib, CHF s/p AICD pacemaker, constipation, COPD, prior frontal CVA, GERD s/p darlin, GI Bleed, High Cholesterol, Hypertension, Hypotension, CAD, BPH, achalasia who presents via EMS with complaining of syncope. Patient was at his primary care physician office today for checking INR regarding taking Coumadin, felt dizzy and lightheaded and passed out with shaking noted. EMS reported no postictal confusion was alert and oriented. Patient had orthostatic hypotension with drop of blood pressure by 66mmHg on standing up and IV fluid was started by EMS. Patient states he had the same problem previously and was admitted at Hospital for several days without abn ormal finding. Patient denies chest pain, shortness of breath, headache, blurred vision, nausea and vomiting, diarrhea, urinary symptom. Patient states he didn't feel good for the last couple days and complaining of dizziness and generalized weakness without 1 episode of chest pain yesterday and 2 episodes of dizziness and presyncope in his kitchen which improved with sitting. Digoxin level 1.6, INR 3.5. He has outpatient scripts for florinef, midodrine currently. Seen by cardiology and neurology in consultation, underwent echo: The left ventricular systolic function is normal and the ejection fraction is within normal range. The Ejection Fraction is 60-65%. There is normal LV segmental wall motion. There is a pacer/ICD lead noted in the RA/RV Doppler and Color Flow revealed mild tricuspid regurgitation with an estimated PAP of 34 mmHg. Also had carotid dopplers: Bilateral cervical carotid artery plaquing without significant stenosis or occlusion evident. Bilateral vertebral artery antegrade blood flow. Improved with dose reduction in gabapentin, oxycodone, and holding digoxin. Cardiac device interrogated - functioning ok. Still very weak. He overall feels ok today. Wishes for home with home health. Problem list A/P: Syncope - sounds like a mixed picture. No post-ictal activity, lactate negative. Could be vasovagal. Neurology and cardiology recs noted Supratherapeutic INR - will hold coumadin for today Elevated digoxin level - goal should really be 0.6-1.2, now 1.6, will hold digoxin for a few days. Difficult to dose with his coumadin and amiodarone AFIB - paced with underlying AFIB, rate controlled AICD - [employer] NICM - compensated. NYHA 1-2. EF 60-65% HLD - cont statin s/p AAA and Iliac artery aneurysm repair. Stable. COPD - controlled. Will cont nebs Seizures - on keprra Recent PE - earlier in 2019. On coumadin Nontraumatic fall - more than 2 in a year, needs fall plan. Placement may be necessary at some point. PT Greater than 30 minutes spent on d/c Discharge Information Condition at Discharge: Improved Follow Up: Weeks Disposition/Orders: D/C to Home w/ HH Scheduled Amiodarone Hcl (Amiodarone Hcl) 200 Mg Tablet, 200 MG PO DAILY for afib for 30 Days, #30 Ref 11 Prescribed by: PAUL MEADOWS MD on 01/30/19 1342 Last Action: Continued on 08/19/191538 by GEORGE COOPER MD Fludrocortisone Acetate (Fludrocortisone Acetate) 0.1 Mg Tablet, 0.1 MG PO DAILY for BP for 30 Days, #30 Prescribed by: PAUL MEADOWS MD on 07/08/19 1319 Last Action: Continued on 08/19/191538 by GEORGE COOPER MD Fluticasone/Salmeterol (Advair 250-50 Diskus) 1 Each Disk.w.dev, 1 PUFF IH BID for lungs, #1 Ref 5 Prescribed by: PAUL MEADOWS MD on 01/30/19 1342 Last Action: Converted on 08/19/191539 by GEORGE COOPER MD Gabapentin (Gabapentin) 300 Mg Capsule, 300 MG PO DAILY for neuropathy for 90 Days, #90 Prescribed by: GEORGE COOPER MD on 08/22/19 0913 Ipratropium/Albuterol Sulfate (Duoneb 0.5-3(2.5) Mg/3 Ml) 3 Ml Ampul.neb, 3 ML NEB RTQID for copd for 30 Days, #120 Prescribed by: YUMIKO WILKINSON MD on 11/05/18 1359 Last Action: Continued on 08/19/191539 by GEORGE COOPER MD Levetiracetam (Keppra) 500 Mg Tablet, 500 MG PO BID for seizure for 30 Days, #60 Prescribed by: PAUL MEADOWS MD on 07/08/191318 Last Action: Continued on 08/19/191539 by GEORGE COOPER MD Magnesium Oxide (Mag-Oxide) 400 Mg Tablet, 400 MG PO DAILY for supplement, (Reported) Entered as Reported by: Deon Garcia on 04/05/19 0243 Last Action: Continued on 08/19/191539 by GEROGE COOPER MD Midodrine Hcl (Midodrine Hcl) 2.5 Mg Tablet, 2.5 MG PO [id number] for orthostasis for 30 Days, #90 Ref 5 Prescribed by: PAUL MEADOWS MD on 01/30/191341 Last Action: Continued on 08/19/191539 by GEORGE COOPER MD Montelukast Sodium (Montelukast Sodium Tablet ) 10 Mg Tablet, 10 MG PO QHS for lungs for 30 Days, #30 Ref 11 Prescribed by: PAUL MEADOWS MD on 01/30/191341 Last Action: Continued on 08/19/191539 by GEORGE COOPER MD Simvastatin (Simvastatin) 20 Mg Tablet, 1 TAB PO QHS, (Reported) Entered as Reported by: TEJAS LUA on 10/18/14 0958 Last Action: Continued on 08/19/191539 by GEORGE COOPER MD Tamsulosin Hcl (Flomax) 0.4 Mg Cap.er.24h, 0.4 MG PO QHS for prostate for 30 Days, #30 Prescribed by: PAUL MEADOWS MD on 07/08/191318 Last Action: Continued on 08/19/191539 by GEORGE COOPER MD Trazodone Hcl (Trazodone Hcl) 100 Mg Tablet, 100 MG PO QHS for sleep, (Reported) Entered as Reported by: SYLVIE COOPER RN on 12/10/182038 Last Action: Continued on 08/19/191539 by GEORGE COOPER MD Warfarin Sodium (Coumadin) 4 Mg Tablet, 4 MG PO 1X WARF for thin blood for 30 Days, #30 Prescribed by: PAUL MEADOWS MD on 07/08/19 1319 Last Action: Continued on 08/19/191539 by GEORGE COOPER MD [Pantoprazole] 40 MG TABLET.DR, 40 MG PO DAILYAC for 30 Days, #30 Ref 1 Prescribed by: RENE MOON on 08/23/18 0858 Last Action: Converted on 08/19/191539 by GEORGE COOPER MD Scheduled PRN Albuterol Sulfate (Proair Hfa Inhaler) 8.5 Gm Hfa.aer.ad, 1 PUFF INH PRN Q6HRS PRN for SHORTNESS OF BREATH, #1 Ref 0 Prescribed by: JULISSA BARRAZA MD on 07/01/18 0250 Last Action: Continued on 08/19/191538 by GEORGE COOPER MD Oxycodone Hcl (Oxycodone Hcl) 20 Mg Tablet, 20 MG PO TID PRN PRN for PAIN, (Reported) Entered as Reported by: SYLVIE COOPER, RN on 12/10/182038 Last Action: Converted on 08/19/192123 by GEORGE COOPER MD Discontinued Medications Digoxin (Digoxin) 125 Mcg Tablet, 125 MCG PO DAILY, (Reported) Entered as Reported by: ANNE RIVERA on 01/29/14 1502 Last Action: Continued on 08/19/191538 by MD ALLISON BUCKNER CHRISTOPHER S MD Aug 22, 2019 19:55
== END 2019-08-22 13:33 | disposition home health service (06) | DRG 74 ==
LOC: ER 11:37 → 2 SOUTH 12:49
PROVIDERS: ADMIT Internal Medicine; ATTEND Internal Medicine
PROC: 4B02XSZ Measurement of Cardiac Pacemaker, External Approach (ICD-10-PCS; principal; 2019-08-19)
DX: G90.8 Other disorders of autonomic nervous system (principal); I42.8 Other cardiomyopathies; R55 Syncope and collapse; E78.5 Hyperlipidemia, unspecified; K21.9 Gastro-esophageal reflux disease without esophagitis; J44.9 Chronic obstructive pulmonary disease, unspecified; I11.0 Hypertensive heart disease with heart failure; I50.9 Heart failure, unspecified; I48.91 Unspecified atrial fibrillation; I25.10 Atherosclerotic heart disease of native coronary artery without angina pectoris; F03.90 Unspecified dementia, unspecified severity, without behavioral disturbance, psychotic disturbance, mood disturbance, and anxiety; E78.00 Pure hypercholesterolemia, unspecified; N40.0 Benign prostatic hyperplasia without lower urinary tract symptoms; R79.1 Abnormal coagulation profile; K59.00 Constipation, unspecified; R56.9 Unspecified convulsions; Z95.1 Presence of aortocoronary bypass graft; Z98.49 Cataract extraction status, unspecified eye; Z79.01 Long term (current) use of anticoagulants; I25.2 Old myocardial infarction; Z86.711 Personal history of pulmonary embolism; Z95.0 Presence of cardiac pacemaker; Z86.73 Personal history of transient ischemic attack (TIA), and cerebral infarction without residual deficits
CPT/HCPCS: 36415; 70450; 71045; 80048; 80053; 80162; 82550; 83605; 83735; 84436; 84443; 84481; 84484; 85025; 85610; 90471; 90686; 93005; 93306; 93880; 94640; J7030; J7620; J7626; 97530; 99285-25; G0378

== ENCOUNTER 2019-11-25 17:22 | Emergency (ER) | payer MEDICARE, BC ==
[~2019-11-25] VITALS: Ht 190.5 cm; Wt 68.6 kg
[~2019-11-25 17:22] MED LIST changes: +ASPI81TA59 PO; -DIGO125T PO; +DIGO125T3 PO; -OMEP20CA10 PO; +OMEP20CA16 PO; +POTA20TA4 PO; -POTA20TA82 PO; +TRAZ-123 PO; -TRAZ-86 PO; +VITA0.4T8 PO
--- NOTE | 2019-11-25 19:54 | PHYS DOC ---
Past Medical History Past Medical History: A-Fib, Arrhythmia, Bronchitis, CHF, Constipation, COPD, CVA, GERD, GI Bleed, High Cholesterol, Hypertension, Hypotension, [place], Other Additional Past Medical Histor: PACEMAKER; AAA; PE; AFIB; BLE NEUROPATHY; ACALASIA; PROSTATE Past Surgical History: Coronary Bypass Surgery, Pacemaker Additional Past Surgical Histo: BACK, lumbar fusion, cataract Smoking Status: Current Every Day Smoker Additional Information: SMOKES 2 CIGS EVERY DAY Alcohol Use: Rarely Drug Use: None Adult General Chief Complaint Chief Complaint: HEAD INJURY/TRAUMA HPI HPI 79-year-old male with underlying history of COPD, chronic anticoagulation, hypertension presents to the emergency department with complaints of a headache. Patient states he hit his head approximate 3-4 days ago on the cabinet however has had persistent headache since then. Patient is on chronic anticoagulation. He called his primary care physician who referred him to the emergency department. Patient denies any chest pain, shortness of breath, nausea, vomiting, dizziness. Patient does describe headache. Nothing makes symptoms worse or better. The headache is described as ache. Review of Systems Review of Systems Constitutional: Denies fever or chills [] Eyes: Denies change in visual acuity, redness, or eye pain [] Respiratory: Denies cough or shortness of breath [] Cardiovascular: No additional information not addressed in HPI [] GI: Denies abdominal pain, nausea, vomiting, bloody stools or diarrhea [] Musculoskeletal: Denies back pain or joint pain [] Integument: Denies rash or skin lesions [] Neurologic: + headache, no focal weakness or sensory changes [] All other systems were reviewed and found to be within normal limits, except as documented in this note. Allergies Allergies Allergies Coded Allergies Type Severity Reaction Last Updated Verified Iodinated Contrast Media Allergy Severe anaphalaxis, short of air 03/04/19 Yes adhesive Allergy Severe PAINFUL SKIN IRRITATION 03/04/19 Yes latex Allergy Intermediate Hives 03/04/19 Yes morphine Allergy Intermediate 08/19/19 Yes Physical Exam Physical Exam Constitutional: Well developed, well nourished, no acute distress, non-toxic appearance. [] HENT: Normocephalic, small hematoma to left side of head, bilateral external ears normal, oropharynx moist, no oral exudates, nose normal. [] Eyes: PERRLA, EOMI, conjunctiva normal, no discharge. [] Neck: Normal range of motion, no tenderness, supple, no stridor. [] Cardiovascular:Heart rate regular rhythm, no murmur [] Lungs & Thorax: Bilateral breath sounds clear to auscultation [] Abdomen: Bowel sounds normal, soft, no tenderness, no masses, no pulsatile masses. [] Skin: Warm, dry, no erythema, no rash. [] Back: No tenderness, no CVA tenderness. [] Extremities: No tenderness, no edema. [] Neurologic: Alert and oriented X 3, no focal deficits noted. [] Psychologic: Affect normal, judgement normal, mood normal. [] Current Patient Data Vital Signs Vital Signs Date Time Temp Pulse Resp B/P (MAP) Pulse Ox O2 Delivery O2 Flow Rate FiO2 11/25/19 19:33 98.1 78 16 135/88 (104) 95 Room Air 98.1 Lab Values Laboratory Tests Test 11/25/19 20:08 Prothrombin Time 23.5 SEC (11.7-14.0) H Prothrombin Time INR 2.1 (0.8-1.1) H EKG EKG [] Radiology/Procedures Radiology/Procedures [facility] [address] [place] [address] IMAGING REPORT Signed PATIENT: GENIA MCKENZIE ACCOUNT: [id number] : 1940 LOCATION: ER AGE: 79 SEX: M EXAM STATUS: REG ER ORD. PHYSICIAN: JESSICA VELEZ MD REASON: fall, headache, blood thinning medications PROCEDURE: CT HEAD WO CONTRAST Exam: CT head INDICATION: Fall, headache TECHNIQUE: Sequential axial images through the head were obtained without the administration of IV contrast. Comparisons: 08/19/2019 FINDINGS: No focal parenchymal lesion or hemorrhage is identified. There is no midline shift or sulcal effacement. There is hypodensity within the left frontal lobe which is similar when compared to the prior exam. No acute vascular territory infarction is identified. Alexis-white distinction is preserved. The ventricular system is within normal limits without compression hydrocephalus. The basal cisterns are well maintained. The visualized portions of the paranasal sinuses and mastoid air cells are well-pneumatized. No acute fractures. IMPRESSION: No acute intracranial abnormality. Exposure: One or more of the following in the visualized dose reduction techniques were utilized for this examination: 1. Automated exposure control 2. Adjustment of the MA and/or KV according to patient size Use of iterative of reconstructive technique Electronically signed by: Hardik Gonzalez MD (11/25/2019 8:35 PM) [id number] DICTATED and SIGNED BY: HARDIK GONZALEZ MD DATE: 11/25/192034 [] Course & Med Decision Making Course & Med Decision Making Pertinent Labs and Imaging studies reviewed. (See chart for details) []79-year-old male with underlying history of COPD, chronic anticoagulation, hypertension presents to the emergency department with complaints of a headache. Patient states he hit his head approximate 3-4 days ago on the cabinet however has had persistent headache since then. Patient is on chronic anticoagulation. He called his primary care physician who referred him to the emergency department. Patient denies any chest pain, shortness of breath, nausea, vomiting, dizziness. Patient does describe headache. Nothing makes symptoms worse or better. The headache is described as ache. INR 2.1 CT head without acute process Tramadol x 2 days provided for headache/concussion NO evidence of acute bleed Recommend nc home follow up with PCP Kathleen Disclaimer Dragon Disclaimer This electronic medical record was generated, in whole or in part, using a voice recognition dictation system. Departure Departure Impression: Primary Impression: Head injury Additional Impression: Headache Disposition: 01 HOME, SELF-CARE Condition: STABLE Referrals: Hazle MEADOWS MD (PCP) Patient Instructions: Head Injury, Adult, [id number] Additional Instructions: Recommend follow up with PCP 3 - 5 days Return to the ER with worsening symptoms, intractable pain, fever, altered mental status Tylenol as needed for pain Tramadol x [address] head without acute findings, no bleeding Scripts Tramadol Hcl (TRAMADOL HCL) 50 Mg Tablet 50 MG PO DAILY PRN for PAIN for 2 Days, #2 TAB 0 Refills Prov: JESSICA VELEZ MD 11/25/19 Problem Qualifiers Primary Impression: Head injury Encounter type: initial encounter Qualified Codes: S09.90XA - Unspecified injury of head, initial encounter Additional Impression: Headache Headache type: unspecified Headache chronicity pattern: unspecified pattern Intractability: intractable Qualified Codes: R51 - Headache JESSICA VELEZ MD Nov 25, 2019:54
[2019-11-25 20:22] LABS: PROTHROMBIN TIME PATIENT 23.5 SEC (11.7-14.0)
[2019-11-25 20:30] VITALS: BP 178/92
--- NOTE | 2019-11-25 20:38 | RAD ---
Exam: CT head INDICATION: Fall, headache TECHNIQUE: Sequential axial images through the head were obtained without the administration of IV contrast. Comparisons: 08/19/2019 FINDINGS: No focal parenchymal lesion or hemorrhage is identified. There is no midline shift or sulcal effacement. There is hypodensity within the left frontal lobe which is similar when compared to the prior exam. No acute vascular territory infarction is identified. Alexis-white distinction is preserved. The ventricular system is within normal limits without compression hydrocephalus. The basal cisterns are well maintained. The visualized portions of the paranasal sinuses and mastoid air cells are well-pneumatized. No acute fractures. IMPRESSION: No acute intracranial abnormality. Exposure: One or more of the following in the visualized dose reduction techniques were utilized for this examination: 1. Automated exposure control 2. Adjustment of the MA and/or KV according to patient size Use of iterative of reconstructive technique Electronically signed by: Hardik Botello MD (11/25/2019 8:35 PM) [id number]
[2019-11-25] MEDS ORDERED: TRAM50TA PO (21:00)
== END 2019-11-25 21:06 | disposition home or self-care (01) ==
LOC: ER 17:22
DX: S09.8XXA Other specified injuries of head, initial encounter (principal); R51 Headache; I48.20 Chronic atrial fibrillation, unspecified; I49.9 Cardiac arrhythmia, unspecified; I11.0 Hypertensive heart disease with heart failure; I50.9 Heart failure, unspecified; K21.9 Gastro-esophageal reflux disease without esophagitis; I25.2 Old myocardial infarction; I95.9 Hypotension, unspecified; J44.9 Chronic obstructive pulmonary disease, unspecified; E78.00 Pure hypercholesterolemia, unspecified; Z95.0 Presence of cardiac pacemaker; F17.210 Nicotine dependence, cigarettes, uncomplicated; Z88.6 Allergy status to analgesic agent; Z91.040 Latex allergy status; Z88.4 Allergy status to anesthetic agent; W22.8XXA Striking against or struck by other objects, initial encounter; Y93.89 Activity, other specified; Y92.89 Other specified places as the place of occurrence of the external cause; Y99.8 Other external cause status
CPT/HCPCS: 36415; 70450; 85610; 99285

== ENCOUNTER 2020-12-06 14:47 | Emergency (ER) | payer BC ==
[~2020-12-06] VITALS: Ht 190.5 cm; Wt 80.0 kg
[~2020-12-06 14:47] MED LIST changes: -AMIO200T4 PO; +AMIO200T6 PO; -LISI-338 PO; +LISI-517 PO; +LISI10TA16 PO; -LISI10TA2 PO; +MIRT-36 PO; -MIRT15TA PO; +TRAM50TA PO
--- NOTE | 2020-12-06 15:13 | PHYS DOC ---
Past Medical History Past Medical History: A-Fib, Arrhythmia, Bronchitis, CHF, Constipation, COPD, CVA, GERD, GI Bleed, High Cholesterol, Hypertension, Hypotension, [place], Other Additional Past Medical Histor: PACEMAKER; AAA; PE; AFIB; BLE NEUROPATHY; ACALASIA; PROSTATE Past Surgical History: Coronary Bypass Surgery, Pacemaker Additional Past Surgical Histo: BACK, lumbar fusion, cataract Smoking Status: Current Every Day Smoker Alcohol Use: None Drug Use: None General Adult EDM: Chief Complaint: BACK PAIN - NO INJURY HPI: HPI: Patient is a 80 year old male with history of A. fib, bronchitis, COPD, current smoker, hypertension, high cholesterol among other illnesses who presents to the ED today complaining of 10 out of 10 bilateral low back pain, symptoms are chronic but got worse today. Patient denies any injuries. Denies any pain radiating to bilateral lower extremities, denies any loss of bowel/bladder function. States the pain is worse when he is sitting, he states he was unable to sit today and decided to come to the ED. He is also complaining of his right lateral beckham being painful to touch only and swollen since this morning. He states he took his oxycodone and gabapentin with no relief. Review of Systems: Review of Systems: Constitutional: Denies fever or chills. [] GI: Denies abdominal pain, nausea, vomiting, bloody stools or diarrhea. [] : Denies dysuria. [] Musculoskeletal: Reports low back pain, reports right lower extremity swelling and pain Integument: Denies rash. [] Neurologic: Denies headache, focal weakness or sensory changes. [] Psychiatric: Denies depression or anxiety. [] Heart Score: Risk Factors: Risk Factors: DM, Current or recent (<one month) smoker, HTN, HLP, family history of CAD, obesity. Risk Scores: Score 0 - 3: 2.5% MACE over next 6 weeks - Discharge Home Score 4 - 6: 20.3% MACE over next 6 weeks - Admit for Clinical Observation Score 7 - 10: 72.7% MACE over next 6 weeks - Early Invasive Strategies Allergies: Allergies: Allergies Coded Allergies Type Severity Reaction Last Updated Verified Iodinated Contrast Media Allergy Severe anaphalaxis, short of air 03/04/19 Yes adhesive Allergy Severe PAINFUL SKIN IRRITATION 03/04/19 Yes latex Allergy Intermediate Hives 03/04/19 Yes morphine Allergy Intermediate 08/19/19 Yes Physical Exam: PE: Constitutional: Well developed, well nourished, no acute distress, non-toxic appearance. [] Abdomen: Bowel sounds normal, soft, no tenderness, no masses, no pulsatile masses. [] Skin: Warm, dry, no erythema, no rash. [] Back: No tenderness, no CVA tenderness. [] Extremities: No tenderness, no cyanosis, no clubbing, ROM intact, no edema. Negative Homans' sign bilaterally Neurologic: Alert and oriented X 3, normal motor function, normal sensory function, no focal deficits noted. [] Psychologic: Affect normal, judgement normal, mood normal. [] Current Patient Data: Vital Signs: Vital Signs Date Time Temp Pulse Resp B/P (MAP) Pulse Ox O2 Delivery O2 Flow Rate FiO2 12/06/20 14:50 98.9 85 18 148/83 (104) 94 Room Air 98.9 EKG: EKG: [] Radiology/Procedures: Radiology/Procedures: []PROCEDURE: VENOUS LOWER EXTREMITY RIGHT Right lower extremity venous Doppler ultrasound History: Reason: pain to the RLE Comparison: None. Procedure: Color flow Doppler, Doppler spectral analysis, and 2D images are obtained with and without compression in the area of the common femoral vein, superficial femoral vein - femoral vein junction, main femoral vein (superficial femoral vein) and popliteal vein. Veins of the proximal calf are also imaged. Findings: There is normal color flow, augmentation, and compressibility of all visualized vein segments. No evidence of deep venous thrombus is present. IMPRESSION: No evidence of right lower extremity deep venous thrombosis. Electronically signed by: Isaac Ramos MD (12/06/2020 3:33 PM) [facility] DICTATED and SIGNED BY: ISAAC RAMOS MD DATE: 12/06/20 [id number] 0 Course & Med Decision Making: Course & Med Decision Making Pertinent Labs and Imaging studies reviewed. (See chart for details) This is a 80-year-old male patient presented to the ED today complaining of exacerbation of chronic low back pain. Patient denies any injury. Denies any loss of bowel/bladder function. Given Solu-Medrol IM in the ED. He was also complaining of swelling and pain on the right lateral beckham. Venous Doppler of the right lower extremity was obtained and negative. D/c to home. F/up with PCP next week. Kathleen Disclaimer: Kathleen Disclaimer: This electronic medical record was generated, in whole or in part, using a voice recognition dictation system. Departure Departure Impression: Primary Impression: Chronic low back pain Qualified Codes: M54.5 - Low back pain; G89.29 - Other chronic pain Disposition: 01 DC HOME SELF CARE/HOMELESS Condition: STABLE Referrals: Hazel MEADOWS MD (PCP) Follow-up next week Patient Instructions: Back Pain, Adult, [id number] Additional Instructions: You were evaluated in the emergency room for low back pain. Please follow-up with your primary care doctor next week. We did a Doppler of the right lower extremity, there was no acute findings. Continue taking your pain medicine at home. SAV GAINES APRN Dec 06, 2020 15:13
[2020-12-06] MEDS ORDERED: LIDOCAINE (700MG/PATCH) PATCH. TD STA (15:27)
[2020-12-06] MEDS ORDERED: methylPREDNISolone SOD SUCC PF 125 MG/2 ML VIAL. IM ONE (15:30)
--- NOTE | 2020-12-06 15:36 | RAD ---
Right lower extremity venous Doppler ultrasound History: Reason: pain to the RLE Comparison: None. Procedure: Color flow Doppler, Doppler spectral analysis, and 2D images are obtained with and without compression in the area of the common femoral vein, superficial femoral vein - femoral vein junction , main femoral vein (superficial femoral vein) and popliteal vein. Veins of the proximal calf are als o imaged. Findings: There is normal color flow, augmentation, and compressibility of all visualized vein segments. No estefania dence of deep venous thrombus is present. IMPRESSION: No evidence of right lower extremity deep venous thrombosis. Electronically signed by: Isaac Ramos MD (12/06/2020 3:33 PM) [facility]
[2020-12-06 17:24] VITALS: BP 128/87
== END 2020-12-06 17:54 | disposition home or self-care (01) ==
LOC: ER 14:47
DX: G89.29 Other chronic pain (principal); M54.5 Low back pain; I48.91 Unspecified atrial fibrillation; I11.0 Hypertensive heart disease with heart failure; I50.9 Heart failure, unspecified; K21.9 Gastro-esophageal reflux disease without esophagitis; J44.9 Chronic obstructive pulmonary disease, unspecified; E78.00 Pure hypercholesterolemia, unspecified; I25.2 Old myocardial infarction; Z95.0 Presence of cardiac pacemaker; Z95.1 Presence of aortocoronary bypass graft; F17.200 Nicotine dependence, unspecified, uncomplicated; Z88.5 Allergy status to narcotic agent; Z91.040 Latex allergy status; Z88.8 Allergy status to other drugs, medicaments and biological substances
CPT/HCPCS: 93971; 96372; 99284; J2930

== ENCOUNTER → 2021-01-18 | Outpatient (CLI) | payer MEDICARE, BC ==
[2021-01-16 15:00] VITALS: BP 114/72
[2021-01-18 10:28] LABS: BILIRUBIN,URINE NEGATIVE (NEG); CLARITY,URINE CLOUDY; COLOR,URINE YELLOW; NITRITE,URINE NEGATIVE (NEG); PROTEIN,URINE NEGATIVE (NEG-TRACE)
[2021-01-18 10:46] LABS: AMORPHOUS SEDIMENT,UR PRESENT /HPF; BACTERIA,URINE 0 /HPF (0-FEW); RBC,URINE 0 /HPF (0-2); WBC,URINE 0 /HPF (0-4)
== END ==
LOC: SPEC 10:02
PROVIDERS: ATTEND Family Medicine
DX: R30.9 Painful micturition, unspecified (principal); G89.29 Other chronic pain
CPT/HCPCS: 81001

== ENCOUNTER 2021-01-28 10:25 | Emergency (ER) | payer BC, MEDICARE ==
[~2021-01-28] VITALS: Ht 190.5 cm; Wt 77.0 kg
--- NOTE | 2021-01-28 10:50 | PHYS DOC ---
Past Medical History Past Medical History: A-Fib, Arrhythmia, Bronchitis, CHF, Constipation, COPD, CVA, GERD, GI Bleed, High Cholesterol, Hypertension, Hypotension, [place], Other Additional Past Medical Histor: PACEMAKER; AAA; PE; AFIB; BLE NEUROPATHY; ACALASIA; PROSTATE Past Surgical History: Coronary Bypass Surgery, Pacemaker Additional Past Surgical Histo: BACK, lumbar fusion, cataract Smoking Status: Current Every Day Smoker Alcohol Use: None Drug Use: None General Adult EDM: Chief Complaint: WEAKNESS/GENERALIZED HPI: HPI: Patient is a 81 year old male with history of A. fib, COPD, hypertension, high cholesterol, hypertension, among other illnesses who presents to the ED today to be evaluated for generalized weakness and hypotension that was noted this morning by home health nurse. Patient himself states he thinks he has a sore throat. He states he took oxycodone 20 mg this morning which he takes for chronic kidney stone pain. He appears sleepy but is able to wake up and talk. Review of Systems: Review of Systems: Constitutional: Reports generalized weakness denies fever or chills. [] Eyes: Denies change in visual acuity. [] HENT: Reports sore throat. Denies nasal congestion Respiratory: Denies cough or shortness of breath. [] Cardiovascular: Reports hypertension. Denies chest pain or edema. [] GI: Denies abdominal pain, nausea, vomiting, bloody stools or diarrhea. [] : Denies dysuria. [] Musculoskeletal: Denies back pain or joint pain. [] Integument: Denies rash. [] Neurologic: Denies headache, focal weakness or sensory changes. [] Psychiatric: Denies depression or anxiety. [] Heart Score: C/O Chest Pain: N/A Risk Factors: Risk Factors: DM, Current or recent (<one month) smoker, HTN, HLP, family history of CAD, obesity. Risk Scores: Score 0 - 3: 2.5% MACE over next 6 weeks - Discharge Home Score 4 - 6: 20.3% MACE over next 6 weeks - Admit for Clinical Observation Score 7 - 10: 72.7% MACE over next 6 weeks - Early Invasive Strategies Allergies: Allergies: Allergies Coded Allergies Type Severity Reaction Last Updated Verified Iodinated Contrast Media Allergy Severe anaphalaxis, short of air 03/04/19 Yes adhesive Allergy Severe PAINFUL SKIN IRRITATION 03/04/19 Yes latex Allergy Intermediate Hives 03/04/19 Yes morphine Allergy Intermediate 08/19/19 Yes Physical Exam: PE: Constitutional: Well developed, well nourished, no acute distress, non-toxic appearance. [] HENT: Normocephalic, atraumatic, bilateral external ears normal, oropharynx moist, no oral exudates, nose normal. [] Eyes: Pinpoint pupils. PERRLA, EOMI, conjunctiva normal, no discharge. [] Neck: Normal range of motion, no tenderness, supple, no stridor. [] Cardiovascular:Heart rate regular rhythm, no murmur [] Lungs & Thorax: Bilateral breath sounds clear to auscultation [] Abdomen: Bowel sounds normal, soft, no tenderness, no masses, no pulsatile masses. [] Skin: Warm, dry, no erythema, no rash. [] Back: No tenderness, no CVA tenderness. [] Extremities: No tenderness, no cyanosis, no clubbing, ROM intact, no edema. [] Neurologic: Alert and oriented X 3, normal motor function, normal sensory function, no focal deficits noted. Cranial nerves II through XII intact Psychologic: Affect normal, judgement normal, mood normal. [] EKG: EK Interpreted by Dr. Miller sinus rhythm heart rate 96 no STEMI [] Radiology/Procedures: Radiology/Procedures: []PROCEDURE: CT HEAD WO CONTRAST Exam Date: 01/28/2021 10:[address] HEAD/BRAIN WO Indication: Reason: weakness / Spl. Instructions: / History: TECHNIQUE: Head CT was performed without intravenous contrast. One or more of the following dose reduction techniques were utilized: *Automated exposure control (AEC) *Adjustment of mA and/or kV according to patient size *Use of iterative reconstruction technique *CT scan done according to ALARA, or ALARA/IMAGE GENTLY COMPARISON: January 14, 2021 FINDINGS: Encephalomalacia in the left frontal lobe consistent with remote infarct is again seen. The ventricles and sulci are prominent consistent with cerebral volume loss. Patchy ill-defined low attenuation areas in the subcortical and periventricular white matter bilaterally are consistent with microvascular disease. There is no evidence of acute intracranial hemorrhage, extra-axial collection, mass effect, midline shift, or acute territorial infarct. No lesion of the skull base or the calvarium is seen. The visualized paranasal sinuses, mastoid air cells and orbits are normal in appearance. IMPRESSION: No evidence for acute intracranial abnormality. 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 Electronically signed by: Shahana Lawson MD (01/28/2021 11:32 AM) [id number] DICTATED and SIGNED BY: SHAHANA LAWSON MD DATE: 01/28/21 [id number] 0 PROCEDURE: PORTABLE CHEST 1V Exam Date: 01/28/2021 11:06 AM XR CHEST 1V Indication: Reason: weakness/ BATHROOM AND BLOOD WORK @10:52AM / Spl. Instructions: / History: Comparison: January 14, 2021 FINDINGS/ IMPRESSION: Cardiac pacemaker remains in place. Aorta is tortuous. The cardiac silhouette is enlarged without congestion. There is no focal consolidation, pleural effusion or pneumothorax. The visualized osseous structures are intact. Electronically signed by: Shahana Lawson MD (01/28/2021 11:20 AM) [id number] DICTATED and SIGNED BY: SHAHANA LAWSON MD DATE: 01/28/21 [id number] 0 Course & Med Decision Making: Course & Med Decision Making Pertinent Labs and Imaging studies reviewed. (See chart for details) This is a 81-year-old male patient presented to the ED today to be evaluated for generalized weakness hypotension that was noted this morning by home health nurse. Patient took oxycodone 20 mg which he takes daily for chronic kidney stone pain. He is sleepy though arousable and able to talk. Pupils are pinpoint. Blood pressure was in the 120s over 70s on arrival to the ED. CT of the head interpreted by radiologist as negative for any acute findings, chest x-ray interpreted by radiologist as negative for any acute findings. CBC no acute findings, CMP with no acute findings, UA positive for small amount of leukocytes though it appears contaminated with squamous cells epithelium. Initial lactic was 2.9, repeat lactic was 1.7, patient is afebrile. UDS positive for opiates and benzodiazepines. Patient is much more awake in the ED. Answering questions well. I spoke to the daughter, she states patient stays at home with the son and requested we provide him a cab voucher if he is going home. Discharge to home, follow-up with PCP Kathleen Disclaimer: Kathleen Disclaimer: This electronic medical record was generated, in whole or in part, using a voice recognition dictation system. Departure Departure Impression: Primary Impression: Weakness Additional Impression: Narcotic drug use Disposition: HOME / SELF CARE / HOMELESS Condition: STABLE Referrals: Hazel MEADOWS MD (PCP) follow up in the course of this week Patient Instructions: Weakness, [id number] Additional Instructions: You were evaluated in the emergency room, your work-up was negative for any acute findings. Please follow-up with your primary care doctor. Try and push fluids. Avoid taking narcotics and benzodiazepines. SAV GAINES NETWORK SYSTEMS ADMINISTRATOR Jan 28, 2021 10:50
--- NOTE | 2021-01-28 11:22 | RAD ---
Exam Date: 01/28/2021 11:06 AM XR CHEST 1V Indication: Reason: weakness/ BATHROOM AND BLOOD WORK @10:52AM / Spl. Instructions: / History: Comparison: January 14, 2021 FINDINGS/ IMPRESSION: Cardiac pacemaker remains in place. Aorta is tortuous. The cardiac silhouette is enlarged without congestion. There is no focal consolidation, pleural effusion or pneumothorax. The visualized osseous structures are intact. Electronically signed by: Cristian Lawson MD (01/28/2021 11:20 AM) [id number]
[2021-01-28 11:24] LABS: BASO % 1 % (0-3); EOS # 0.2 x10^3/uL (0.0-0.7); EOS % 2 % (0-3); HEMATOCRIT 46.2 % (39.0-53.0); HEMOGLOBIN 15.3 g/dL (13.0-17.5); LYMPH # 0.9 x10^3/uL (1.0-4.8); LYMPH % 13 % (24-48); MEAN CORPUSCULAR HEMOGLOBIN 33 pg (25-35); MEAN CORPUSCULAR HGB CONC 33 g/dL (31-37); MEAN CORPUSCULAR VOLUME 101 fL (79-100); MONO # 0.7 x10^3/uL (0.0-1.1); MONO % 10 % (0-9); NEUT # 5.2 x10^3/uL (1.8-7.7); NEUT % 75 % (31-73); PLATELET COUNT 161 x10^3/uL (140-400); RED BLOOD COUNT 4.59 x10^6/uL (4.30-5.70); RED CELL DISTRIBUTION WIDTH 15.5 % (11.5-14.5)
[2021-01-28 11:35] LABS: CREATININE 1.4 mg/dL (0.7-1.3); GFR 59.2; POTASSIUM 4.4 mmol/L (3.5-5.1)
--- NOTE | 2021-01-28 11:35 | RAD ---
Exam Date: 01/28/2021 10:[address] HEAD/BRAIN WO Indication: Reason: weakness / Spl. Instructions: / History: TECHNIQUE: Head CT was performed without intravenous contrast. One or more of the following dose re duction techniques were utilized: *Automated exposure control (AEC) *Adjustment of mA and/or kV according to patient size *Use of iterative reconstruction technique *CT scan done according to ALARA, or ALARA/IMAGE GENTLY COMPARISON: January 14, 2021 FINDINGS: Encephalomalacia in the left frontal lobe consistent with remote infarct is again seen. The ventricles and sulci are prominent consistent with cerebral volume loss. Patchy ill-defined low attenuation areas in the subcortical and periventricular white matter bilaterally are consistent with microvascular disease. There is no evidence of acute intracranial hemorrhage, extra-axial collecti on, mass effect, midline shift, or acute territorial infarct. No lesion of the skull base or the calv arium is seen. The visualized paranasal sinuses, mastoid air cells and orbits are normal in appearanc e. IMPRESSION: No evidence for acute intracranial abnormality. 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 Electronically signed by: Cristian Lawson MD (01/28/2021 11:32 AM) [id number]
[2021-01-28 11:41] LABS: ALBUMIN 3.4 g/dL (3.4-5.0); ALBUMIN/GLOBULIN RATIO 0.9 (1.0-1.7); CALCIUM 8.6 mg/dL (8.5-10.1); MAGNESIUM 2.1 mg/dL (1.8-2.4); TOTAL BILIRUBIN 0.4 mg/dL (0.2-1.0); TOTAL PROTEIN 7.1 g/dL (6.4-8.2)
[2021-01-28 13:00] LABS: BILIRUBIN,URINE SMALL (NEG); CLARITY,URINE CLOUDY; COLOR,URINE AMBER; NITRITE,URINE NEGATIVE (NEG); PH,URINE 5.5 (<5.0-8.0); PROTEIN,URINE NEGATIVE (NEG-TRACE)
[2021-01-28 13:07] LABS: BARBITURATES NEG (NEG); BENZODIAZEPINES POS (NEG); CANNABINOIDS NEG (NEG); COCAINE NEG (NEG); METHADONE NEG (NEG); OPIATES POS (NEG); PHENCYCLIDINE NEG (NEG)
[2021-01-28 13:08] LABS: AMPHETAMINE/METHAMPHETAMINE NEG (NEG)
[2021-01-28 13:13] LABS: HYALINE CASTS, URINE MANY /HPF
[2021-01-28 13:14] LABS: AMORPHOUS SEDIMENT,UR PRESENT /HPF; BACTERIA,URINE 0 /HPF (0-FEW); RBC,URINE 0 /HPF (0-2)
[2021-01-28 15:47] VITALS: BP 106/63
--- NOTE | 2021-01-28 17:15 | EKG ---
[facility] [address] [place] [address] Test Date: 2021-01-28 Test Time: 10:34:45 Pat Name: GENIA MCKENZIE Department: Room: Gender: M Md Senior Research Scientist: ID : [id number] Requested By: SAV GAINES Order Number: [id number] Reading MD: Measurements Intervals Vance Rate: 96 P: 90 GA: 86 QRS: -53 QRSD: 94 T: 52 QT: 380 QTc: 481 Interpretive Statements SINUS RHYTHM VENTRICULAR PREMATURE COMPLEX(ES) ABNORMAL LEFT AXIS DEVIATION LOW LIMB LEAD VOLTAGE QRS(T) CONTOUR ABNORMALITY CONSIDER ANTEROLATERAL MYOCARDIAL DAMAGE PROLONGED QT ABNORMAL ECG RI6.01 No previous ECG available for comparison
--- NOTE | 2021-01-30 09:57 | NUR ---
IP: Informed pt of negative COVID test. pt verbalized understanding.
== END 2021-01-28 16:20 | disposition home or self-care (01) ==
LOC: ER 10:25
DX: R53.1 Weakness (principal); Z20.822 Contact with and (suspected) exposure to COVID-19; F11.90 Opioid use, unspecified, uncomplicated; J02.9 Acute pharyngitis, unspecified; I48.20 Chronic atrial fibrillation, unspecified; I11.0 Hypertensive heart disease with heart failure; I50.9 Heart failure, unspecified; E78.00 Pure hypercholesterolemia, unspecified; I25.2 Old myocardial infarction; K21.9 Gastro-esophageal reflux disease without esophagitis; K92.2 Gastrointestinal hemorrhage, unspecified; J44.9 Chronic obstructive pulmonary disease, unspecified; F17.200 Nicotine dependence, unspecified, uncomplicated; Z98.890 Other specified postprocedural states; Z95.0 Presence of cardiac pacemaker; Z91.041 Radiographic dye allergy status; Z88.6 Allergy status to analgesic agent; Z88.8 Allergy status to other drugs, medicaments and biological substances
CPT/HCPCS: 36415; 70450; 71045; 80053; 80307; 81001; 82553; 83605; 83735; 83880; 84484; 85025; 87040; 87086; 93005; 99285; C9803; U0003; U0005

== ENCOUNTER 2021-05-20 06:19 | Emergency (ER) | payer BC ==
[~2021-05-20] VITALS: Ht 190.5 cm; Wt 77.5 kg
[~2021-05-20 06:19] MED LIST changes: -DOXY100C2 PO; +DOXY100C3 PO; -OMEP40CA45 PO; +OMEP40CA7 PO
[2021-05-20 08:57] LABS: BASO % 1 % (0-3); EOS # 0.1 x10^3/uL (0.0-0.7); EOS % 2 % (0-3); HEMATOCRIT 50.2 % (39.0-53.0); HEMOGLOBIN 16.6 g/dL (13.0-17.5); LYMPH % 19 % (24-48); MEAN CORPUSCULAR HEMOGLOBIN 33 pg (25-35); MEAN CORPUSCULAR HGB CONC 33 g/dL (31-37); MEAN CORPUSCULAR VOLUME 99 fL (79-100); MONO # 0.5 x10^3/uL (0.0-1.1); MONO % 9 % (0-9); NEUT # 3.8 x10^3/uL (1.8-7.7); NEUT % 70 % (31-73); PLATELET COUNT 205 x10^3/uL (140-400); RED BLOOD COUNT 5.09 x10^6/uL (4.30-5.70); RED CELL DISTRIBUTION WIDTH 15.5 % (11.5-14.5); WHITE BLOOD COUNT 5.4 x10^3/uL (4.0-11.0)
[2021-05-20 10:05] LABS: CALCIUM 8.8 mg/dL (8.5-10.1); CREATININE 1.2 mg/dL (0.7-1.3); GFR 70.7; POTASSIUM 4.2 mmol/L (3.5-5.1)
[2021-05-20 10:10] LABS: ALBUMIN 3.3 g/dL (3.4-5.0); ALBUMIN/GLOBULIN RATIO 0.9 (1.0-1.7); TOTAL BILIRUBIN 0.5 mg/dL (0.2-1.0); TOTAL PROTEIN 7.1 g/dL (6.4-8.2)
--- NOTE | 2021-05-20 12:10 | RAD ---
EXAM: CT Abdomen and Pelvis with IV contrast CLINICAL HISTORY: Reason: llq abd pain, vomiting / Spl. Instructions: READI-CAT / History: . COMPARISON: 01/14/2021 04/04/2019 TECHNIQUE: Helical CT of the abdomen and pelvis was performed following the administration of intrave nous contrast. Axial, coronal and sagittal reformatted images were generated. PQRS compliance statement - One or more of the following individualized dose reduction techniques wer e utilized for this study: 1. Automated exposure control 2. Adjustment of the mA and/or kV according to patient size 3. Use of iterative reconstruction technique FINDINGS: Lower Chest: Pacer leads are seen within the heart. Linear and patchy opacities medial lower lobes likely scarring /atelectasis, mildly progressed compared to 01/14/2021. Abdomen and Pelvis: No focal liver lesion. High density dependent material in the gallbladder likely sludge. No biliary d uctal dilatation. Pancreas and spleen are unremarkable. Adrenal glands are normal. Hypodense renal lesions bilaterally likely cystic. No hydronephrosis. No hydroureter. Bladder is unre markable. Symmetric nephrograms. Colonic diverticula are seen. There is infiltration about the left colon from the splenic flexure to the mid descending colon. No small or large bowel dilatation. No bowel obstruction. Aortobiiliac sten t graft is seen. Aortic calcifications are noted. No abdominal or pelvic lymphadenopathy. No abdomina l or pelvic ascites. No abdominal or pelvic ascites. No abdominal or pelvic lymphadenopathy. Prostate measures 5.6 cm in t ransverse dimension. Appendix is normal. Bones: Decreased bone mineral density. 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 Lucent regions within the sacrum are again seen, grossly unchanged. In general the bony changes are similar. IMPRESSION: 1. Infiltration about the left colon in the region of the splenic flexure and descending colon. This may represent infectious or inflammatory colitis. No definite associated diverticula to suggest acut e diverticulitis. Following resolution of the acute process, colonoscopy can be performed to exclude underlying associated mass. 2. High density material dependently within the gallbladder likely sludge. Electronically signed by: Yandel Arzola MD (05/20/2021 12:07 PM) [id number]
[2021-05-20] MEDS ORDERED: AMOX1TAB61 PO (12:55)
[2021-05-20] MEDS ORDERED: HYOS0.1265 SL (12:55)
--- NOTE | 2021-05-20 12:55 | ED.ADGEN ---
Past Medical History Past Medical History: A-Fib, Arrhythmia, Bronchitis, CHF, Constipation, COPD, CVA, GERD, GI Bleed, High Cholesterol, Hypertension, Hypotension, Kidney Stone, [place], Other Additional Past Medical Histor: PACEMAKER; AAA; PE; AFIB; BLE NEUROPATHY; ACALASIA; PROSTATE Past Surgical History: Coronary Bypass Surgery, Pacemaker Additional Past Surgical Histo: BACK, lumbar fusion, cataract Smoking Status: Current Some Day Smoker Alcohol Use: None Drug Use: None General Adult EDM: Chief Complaint: ABDOMINAL PAIN HPI: HPI: Patient is a 81 year old [f__sex] who presents with [] Review of Systems: Review of Systems: Constitutional: Denies fever or chills. [] Eyes: Denies change in visual acuity. [] HENT: Denies nasal congestion or sore throat. [] Respiratory: Denies cough or shortness of breath. [] Cardiovascular: Denies chest pain or edema. [] GI: Denies abdominal pain, nausea, vomiting, bloody stools or diarrhea. [] : Denies dysuria. [] Musculoskeletal: Denies back pain or joint pain. [] Integument: Denies rash. [] Neurologic: Denies headache, focal weakness or sensory changes. [] Endocrine: Denies polyuria or polydipsia. [] Lymphatic: Denies swollen glands. [] Psychiatric: Denies depression or anxiety. [] Allergies: Allergies: Allergies Coded Allergies Type Severity Reaction Last Updated Verified Iodinated Contrast Media Allergy Severe anaphalaxis, short of air 03/04/19 Yes adhesive Allergy Severe PAINFUL SKIN IRRITATION 03/04/19 Yes latex Allergy Intermediate Hives 03/04/19 Yes morphine Allergy Intermediate 08/19/19 Yes Physical Exam: PE: Constitutional: Well developed, well nourished, no acute distress, non-toxic appearance. [] HENT: Normocephalic, atraumatic, bilateral external ears normal, oropharynx moist, no oral exudates, nose normal. [] Eyes: PERRLA, EOMI, conjunctiva normal, no discharge. [] Neck: Normal range of motion, no tenderness, supple, no stridor. [] Cardiovascular:Heart rate regular rhythm, no murmur [] Lungs & Thorax: Bilateral breath sounds clear to auscultation [] Abdomen: Bowel sounds normal, soft, no tenderness, no masses, no pulsatile masses. [] Skin: Warm, dry, no erythema, no rash. [] Back: No tenderness, no CVA tenderness. [] Extremities: No tenderness, no cyanosis, no clubbing, ROM intact, no edema. [] Neurologic: Alert and oriented X 3, normal motor function, normal sensory function, no focal deficits noted. [] Psychologic: Affect normal, judgement normal, mood normal. [] Current Patient Data: Labs: Laboratory Tests Test 05/20/21 07:50 05/20/21 09:40 White Blood Count 5.4 x10^3/uL (4.0-11.0) Red Blood Count 5.09 x10^6/uL (4.30-5.70) Hemoglobin 16.6 g/dL (13.0-17.5) Hematocrit 50.2 % (39.0-53.0) Mean Corpuscular Volume 99 fL (79-100) Mean Corpuscular Hemoglobin 33 pg (25-35) Mean Corpuscular Hemoglobin Concent 33 g/dL (31-37) Red Cell Distribution Width 15.5 % (11.5-14.5) H Platelet Count 205 x10^3/uL (140-400) Neutrophils (%) (Auto) 70 % (31-73) Lymphocytes (%) (Auto) 19 % (24-48) L Monocytes (%) (Auto) 9 % (0-9) Eosinophils (%) (Auto) 2 % (0-3) Basophils (%) (Auto) 1 % (0-3) Neutrophils # (Auto) 3.8 x10^3/uL (1.8-7.7) Lymphocytes # (Auto) 1.0 x10^3/uL (1.0-4.8) Monocytes # (Auto) 0.5 x10^3/uL (0.0-1.1) Eosinophils # (Auto) 0.1 x10^3/uL (0.0-0.7) Basophils # (Auto) 0.0 x10^3/uL (0.0-0.2) Sodium Level 145 mmol/L (136-145) Potassium Level 4.2 mmol/L (3.5-5.1) Chloride Level 106 mmol/L (98-107) Carbon Dioxide Level 33 mmol/L (21-32) H Anion Gap 6 (6-14) Blood Urea Nitrogen 16 mg/dL (8-26) Creatinine 1.2 mg/dL (0.7-1.3) Estimated GFR (Cockcroft-Gault) 70.7 BUN/Creatinine Ratio 13 (6-20) Glucose Level 103 mg/dL (70-99) H Calcium Level 8.8 mg/dL (8.5-10.1) Total Bilirubin 0.5 mg/dL (0.2-1.0) Aspartate Amino Transferase (AST) 19 U/L (15-37) Alanine Aminotransferase (ALT) 19 U/L (16-63) Alkaline Phosphatase 97 U/L (46-116) Total Protein 7.1 g/dL (6.4-8.2) Albumin 3.3 g/dL (3.4-5.0) L Albumin/Globulin Ratio 0.9 (1.0-1.7) L Lipase 72 U/L (73-393) L Laboratory Tests 05/20/21 07:50 Laboratory Tests 05/20/21 09:40 Vital Signs: Vital Signs Date Time Temp Pulse Resp B/P (MAP) Pulse Ox O2 Delivery O2 Flow Rate FiO2 05/20/21 07:40 97.9 87 20 117/69 (85) 93 Room Air 97.9 EKG: EKG: [] Heart Score: Risk Factors: Risk Factors: DM, Current or recent (<one month) smoker, HTN, HLP, family history of CAD, obesity. Risk Scores: Score 0 - 3: 2.5% MACE over next 6 weeks - Discharge Home Score 4 - 6: 20.3% MACE over next 6 weeks - Admit for Clinical Observation Score 7 - 10: 72.7% MACE over next 6 weeks - Early Invasive Strategies Radiology/Procedures: Radiology/Procedures: [] Course & Med Decision Making: Course & Med Decision Making Pertinent Labs and Imaging studies reviewed. (See chart for details) [] Dragon Disclaimer: Tristinon Disclaimer: This electronic medical record was generated, in whole or in part, using a voice recognition dictation system. Departure Departure Impression: Primary Impression: Colitis Disposition: HOME / SELF CARE / HOMELESS Condition: STABLE Referrals: Hazel MEADOWS MD (PCP) Patient Instructions: Colitis Scripts Hyoscyamine Sulfate (LEVSIN-SL) 0.125 Mg Tab.subl 0.125 MG SL Q6HRS PRN for PAIN, #20 TAB Prov: CASE LONDON MD 05/20/21 Amoxicillin/Potassium Clav (AUGMENTIN 875-125 TABLET) 1 Each Tablet 1 TAB PO Q12HR, #20 TAB Prov: CASE LONDON MD 05/20/21 CASE LONDON MD May 20, 2021 12:55
[2021-05-20 13:00] VITALS: BP 114/71
[2021-05-20 13:02] LABS: BILIRUBIN,URINE NEGATIVE (NEG); CLARITY,URINE CLEAR; COLOR,URINE AMBER; NITRITE,URINE NEGATIVE (NEG); PH,URINE 5.5 (<5.0-8.0); PROTEIN,URINE NEGATIVE (NEG-TRACE)
[2021-05-20 13:18] LABS: BACTERIA,URINE 0 /HPF (0-FEW)
--- NOTE | 2021-05-21 03:39 | EKG ---
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
== END 2021-05-20 13:24 | disposition home or self-care (01) ==
LOC: ER 06:19
DX: K52.9 Noninfective gastroenteritis and colitis, unspecified (principal); I11.0 Hypertensive heart disease with heart failure; I50.9 Heart failure, unspecified; I48.91 Unspecified atrial fibrillation; E78.00 Pure hypercholesterolemia, unspecified; J44.9 Chronic obstructive pulmonary disease, unspecified; K21.9 Gastro-esophageal reflux disease without esophagitis; F17.200 Nicotine dependence, unspecified, uncomplicated; I25.2 Old myocardial infarction; Z87.442 Personal history of urinary calculi; Z95.0 Presence of cardiac pacemaker; Z95.5 Presence of coronary angioplasty implant and graft; Z91.041 Radiographic dye allergy status; Z91.040 Latex allergy status; Z88.8 Allergy status to other drugs, medicaments and biological substances; Z88.5 Allergy status to narcotic agent
CPT/HCPCS: 36415; 74176; 80053; 81001; 83690; 85025; 93005; 99285-25

== ENCOUNTER → 2021-05-27 | Day surgery (SDC) | payer BC ==
[~2021-05-27] VITALS: Ht 182.9 cm; Wt 77.0 kg
[~2021-05-27] MED LIST changes: +AMOX1TAB61 PO; +HYOS0.1265 SL; +IV RINGERS,LACTATED 1000ML 1,000 ML IV SCH; +LIDOCAINE 2% PF 5 ML VIAL. ONE; +PROPOFOL 10 MG/ML (20ML) VIAL. IV ONE
[2021-05-27 13:54] VITALS: BP 138/88
[2021-05-27 14:54] LABS: INFLUENZA A PATIENT NEGATIVE (NEGATIVE)
[2021-05-27 14:55] LABS: INFLUENZA B PATIENT POSITIVE (NEGATIVE)
--- NOTE | 2021-05-27 15:11 | PDOC4 ---
PROCEDURE Procedure EGD/Colonoscopy with biopsy Indication: Dysphagia/history of colon polyps Meds: per anesthesia Findings: E--Dilated/filled with saliva. 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 Z-line irregular. NO resistance to 'scope passage. G--S/p fundoplication D--Normal to second portion. CALLI--normal --'Scope advanced to cecum. Prep adequate. Mucosa normal. Scattered diverticula, sigmoid to cecum. 3-4mm sessile polyp, hepatic flexure, biopsied off. Exam otherwise normal. Darryl. well. IMP: Achalasia, s/p myotomy Epiphrenic diverticulum, "pulsion" type. S/p fundoplication. Diverticulosis. One polyp, removed. REC: Continue as now. F/u in 2 weeks. Upright for all meals and stay upright for 2-3 hours after. Mostly soft/liquids po. Resume home meds. ZULMA COOPER MD May 27, 2021 15:11
[2021-05-27 15:28] VITALS: BP 126/81
--- NOTE | 2021-05-29 15:07 | PATHOLOGY ---
[facility] Accession Number: [id number] . 01 Material submitted: . hepatic flexure - HEPATIC FLEXURE POLYP . 01 Clinical history: . SCREENING COLONOSCOPY DYSPHAGIA, HX POLYPS . 02 Diagnosis: Colon biopsy, hepatic flexure polyp: - Tubular adenoma. (JPM:adeline; 05/29/2021) S 05/29/2021 0905 Local . 02 Comment: There is no high grade dysplasia or evidence of malignancy. (JPM:adeline; 05/29/2021) . 02 Electronically signed: . Randolph Wong MD, Pathologist NPI- [id number] . 01 Gross description: . The specimen is received in formalin, labeled "Minor, Tanner, hepatic flexure polyp". Received is a single segment of pale fernandez tissue measuring 0.3 cm in maximum dimensions. The specimen is submitted entirely in cassette A1. ([facility]ALTH [facility]; 05/28/2021) NRI/NRI 05/28/2021 1513 Local . 02 Pathologist provided ICD-10: D12.3 . 02 CPT . 931463 Specimen Comment: A courtesy copy of this report has been sent to [phone] Specimen Comment: Report sent to / DR MEADOWS Performed at: 01 [facility] [address], [place], [place] [id number] MD Celso Ocampo MD Phone: [phone] Performed at: 02 [facility] [address] [place], [place] [id number] MD Randolph Wong MD Phone: [phone]
== END | disposition home or self-care (01) ==
LOC: ENDOS 13:22
PROVIDERS: ATTEND Internal Medicine Gastroenterology
DX: Z12.11 Encounter for screening for malignant neoplasm of colon (principal); R13.10 Dysphagia, unspecified; K22.8 Other specified diseases of esophagus; D12.3 Benign neoplasm of transverse colon; K57.30 Diverticulosis of large intestine without perforation or abscess without bleeding; K63.89 Other specified diseases of intestine; K31.89 Other diseases of stomach and duodenum; K22.5 Diverticulum of esophagus, acquired; I25.10 Atherosclerotic heart disease of native coronary artery without angina pectoris; I10 Essential (primary) hypertension; I48.91 Unspecified atrial fibrillation; E78.00 Pure hypercholesterolemia, unspecified; J44.9 Chronic obstructive pulmonary disease, unspecified; K21.9 Gastro-esophageal reflux disease without esophagitis; F32.9 Major depressive disorder, single episode, unspecified; F17.210 Nicotine dependence, cigarettes, uncomplicated; Z86.010 Personal history of colon polyps; Z79.82 Long term (current) use of aspirin; Z79.899 Other long term (current) drug therapy; Z98.890 Other specified postprocedural states; Z91.040 Latex allergy status; Z91.013 Allergy to seafood; Z88.8 Allergy status to other drugs, medicaments and biological substances; Z20.822 Contact with and (suspected) exposure to COVID-19
CPT/HCPCS: 43235; 45380; 87426; 87804; J2704

== ENCOUNTER 2022-01-27 13:15 | Emergency (ER) | payer BC, MEDICARE ==
[~2022-01-27] VITALS: Ht 190.5 cm; Wt 68.2 kg
[~2022-01-27 13:15] MED LIST changes: +AMIO200T53 PO; -AMIO200T6 PO; +DICL20GE TP; +FLUT9.9S NS; +FURO-68 PO; -IV RINGERS,LACTATED 1000ML 1,000 ML IV SCH; -LIDOCAINE 2% PF 5 ML VIAL. ONE; -LISI-517 PO; +LISI5TAB15 PO; +POTA8CAP19 PO; -PROPOFOL 10 MG/ML (20ML) VIAL. IV ONE; +SUCR1TAB PO; +WARF6TAB47 PO
[2022-01-27 13:35] VITALS: BP 109/77
[2022-01-27 14:24] LABS: BASO % 1 % (0-3); EOS # 0.1 x10^3/uL (0.0-0.7); EOS % 2 % (0-3); HEMATOCRIT 45.6 % (39.0-53.0); HEMOGLOBIN 15.5 g/dL (13.0-17.5); LYMPH % 18 % (24-48); MEAN CORPUSCULAR HEMOGLOBIN 33 pg (25-35); MEAN CORPUSCULAR HGB CONC 34 g/dL (31-37); MEAN CORPUSCULAR VOLUME 97 fL (79-100); MONO # 0.9 x10^3/uL (0.0-1.1); MONO % 15 % (0-9); NEUT # 3.8 x10^3/uL (1.8-7.7); NEUT % 65 % (31-73); PLATELET COUNT 186 x10^3/uL (140-400); RED BLOOD COUNT 4.71 x10^6/uL (4.30-5.70); RED CELL DISTRIBUTION WIDTH 15.3 % (11.5-14.5); WHITE BLOOD COUNT 5.8 x10^3/uL (4.0-11.0)
[2022-01-27 14:35] LABS: CALCIUM 9.4 mg/dL (8.5-10.1); CREATININE 1.2 mg/dL (0.7-1.3); GFR 70.5; POTASSIUM 4.4 mmol/L (3.5-5.1)
[2022-01-27 14:37] LABS: PROTHROMBIN TIME PATIENT 13.8 SEC (11.7-14.0)
[2022-01-27 14:41] LABS: ALBUMIN 3.7 g/dL (3.4-5.0); ALBUMIN/GLOBULIN RATIO 0.9 (1.0-1.7); TOTAL BILIRUBIN 0.9 mg/dL (0.2-1.0); TOTAL PROTEIN 7.8 g/dL (6.4-8.2)
--- NOTE | 2022-01-27 16:01 | PHYS DOC ---
Past Medical History Past Medical History: A-Fib, Arrhythmia, Bronchitis, CHF, Constipation, COPD, CVA, GERD, GI Bleed, High Cholesterol, Hypertension, Hypotension, Kidney Stone, [place], Other Additional Past Medical Histor: PACEMAKER; AAA; PE; AFIB; BLE NEUROPATHY; ACALASIA; PROSTATE Past Surgical History: Coronary Bypass Surgery, Pacemaker Additional Past Surgical Histo: BACK, lumbar fusion, cataract Smoking Status: Never Smoker Alcohol Use: None Drug Use: None General Adult EDM: Chief Complaint: SHORTNESS OF BREATH HPI: HPI: Patient is a 82 year old male comes in with 3 weeks of dyspnea. Patient states that he has had dark tarry stools and his home health aide wanted him to be checked out back 3 weeks ago but patient refused. Patient denies abdominal pain denies any nausea or vomiting denies any chest pain. Patient was on warfarin and had an elevated INR and his warfarin was discontinued temporarily until his INR normalized. Patient denies any fevers or chills denies any nausea or vomiting. Review of Systems: Review of Systems: Constitutional: Denies fever or chills. Eyes: Denies change in visual acuity. HENT: Denies nasal congestion or sore throat Respiratory: Denies cough or shortness of breath. Cardiovascular: Denies chest pain or edema. GI: Dark tarry stools no diarrhea no abdominal pain : Denies dysuria. [ Musculoskeletal: Denies back pain or joint pain. Integument: Denies rash. Neurologic: Denies headache, focal weakness or sensory changes. Endocrine: Denies polyuria or polydipsia. Lymphatic: Denies swollen glands. Psychiatric: Denies depression or anxiety. Heart Score: C/O Chest Pain: No Risk Factors: Risk Factors: DM, Current or recent (<one month) smoker, HTN, HLP, family history of CAD, obesity. Risk Scores: Score 0 - 3: 2.5% MACE over next 6 weeks - Discharge Home Score 4 - 6: 20.3% MACE over next 6 weeks - Admit for Clinical Observation Score 7 - 10: 72.7% MACE over next 6 weeks - Early Invasive Strategies Allergies: Allergies: Allergies Coded Allergies Type Severity Reaction Last Updated Verified Iodinated Contrast Media Allergy Severe anaphalaxis, short of air 05/27/21 Yes adhesive Allergy Severe PAINFUL SKIN IRRITATION 05/27/21 Yes latex Allergy Intermediate Hives 05/27/21 Yes morphine Allergy Intermediate 05/27/21 Yes Physical Exam: PE: Constitutional: Well developed, well nourished, no acute distress, non-toxic appearance. HENT: Normocephalic, atraumatic, bilateral external ears normal, oropharynx moist, no oral exudates, nose normal. Eyes: PERRLA, EOMI, conjunctiva normal, no discharge. Neck: Normal range of motion, no tenderness, supple, no stridor. Cardiovascular:Heart rate regular rhythm, no murmur Lungs & Thorax: Bilateral breath sounds clear to auscultation Abdomen: Bowel sounds normal, soft, no tenderness, no masses, no pulsatile masses. Patient did have a rectal exam done rectal tone was normal. Patient did have dark stools which was Hemoccult negative. Skin: Warm, dry, no erythema, no rash. Back: No tenderness, no CVA tenderness. Extremities: No tenderness, no cyanosis, no clubbing, ROM intact, no edema. Neurologic: Alert and oriented X 3, normal motor function, normal sensory function, no focal deficits noted. Psychologic: Affect normal, judgement normal, mood normal. Current Patient Data: Labs: Laboratory Tests Test 01/27/22 14:14 01/27/22 14:59 White Blood Count 5.8 x10^3/uL (4.0-11.0) Red Blood Count 4.71 x10^6/uL (4.30-5.70) Hemoglobin 15.5 g/dL (13.0-17.5) Hematocrit 45.6 % (39.0-53.0) Mean Corpuscular Volume 97 fL (79-100) Mean Corpuscular Hemoglobin 33 pg (25-35) Mean Corpuscular Hemoglobin Concent 34 g/dL (31-37) Red Cell Distribution Width 15.3 % (11.5-14.5) H Platelet Count 186 x10^3/uL (140-400) Neutrophils (%) (Auto) 65 % (31-73) Lymphocytes (%) (Auto) 18 % (24-48) L Monocytes (%) (Auto) 15 % (0-9) H Eosinophils (%) (Auto) 2 % (0-3) Basophils (%) (Auto) 1 % (0-3) Neutrophils # (Auto) 3.8 x10^3/uL (1.8-7.7) Lymphocytes # (Auto) 1.0 x10^3/uL (1.0-4.8) Monocytes # (Auto) 0.9 x10^3/uL (0.0-1.1) Eosinophils # (Auto) 0.1 x10^3/uL (0.0-0.7) Basophils # (Auto) 0.0 x10^3/uL (0.0-0.2) Prothrombin Time 13.8 SEC (11.7-14.0) Prothrombin Time INR 1.1 (0.8-1.1) Activated Partial Thromboplast Time 26 SEC (24-38) Sodium Level 141 mmol/L (136-145) Potassium Level 4.4 mmol/L (3.5-5.1) Chloride Level 104 mmol/L (98-107) Carbon Dioxide Level 29 mmol/L (21-32) Anion Gap 8 (6-14) Blood Urea Nitrogen 17 mg/dL (8-26) Creatinine 1.2 mg/dL (0.7-1.3) Estimated GFR (Cockcroft-Gault) 70.5 BUN/Creatinine Ratio 14 (6-20) Glucose Level 98 mg/dL (70-99) Calcium Level 9.4 mg/dL (8.5-10.1) Total Bilirubin 0.9 mg/dL (0.2-1.0) Aspartate Amino Transferase (AST) 33 U/L (15-37) Alanine Aminotransferase (ALT) 39 U/L (16-63) Alkaline Phosphatase 115 U/L (46-116) Total Protein 7.8 g/dL (6.4-8.2) Albumin 3.7 g/dL (3.4-5.0) Albumin/Globulin Ratio 0.9 (1.0-1.7) L SARS-CoV-2 Antigen (Rapid) Negative (NEGATIVE) Laboratory Tests 01/27/22 14:14 Laboratory Tests 01/27/22 14:14 Vital Signs: Vital Signs Date Time Temp Pulse Resp B/P (MAP) Pulse Ox O2 Delivery O2 Flow Rate FiO2 01/27/22 13:35 98.4 94 18 109/77 (88) 91 Room Air 98.4 EKG: EKG: [] Patient first-degree heart block with a heart rate of 72. QTC of 448. Left axis deviation Radiology/Procedures: Radiology/Procedures: [] Course & Med Decision Making: Course & Med Decision Making Pertinent Labs and Imaging studies reviewed. (See chart for details) [] I have reached out to patient's primary care physician Dr. Meadows who also agrees with the plan. Patient will need to be restarted on warfarin family has been reached out to Discussed with daughter susan about d/c instructions. Questions and concerns were addressed. Dragon Disclaimer: Dragon Disclaimer: This electronic medical record was generated, in whole or in part, using a voice recognition dictation system. Departure Departure Referrals: Hazel MEADOWS MD (PCP) JUSTIN HAAS DO Jan 27, 2022 16:01
[2022-01-27 17:11] LABS: BACTERIA,URINE FEW /HPF (0-FEW); RBC,URINE 20-40 /HPF (0-2)
[2022-01-27 17:22] LABS: FECAL OB PT NEGATIVE (NEG)
--- NOTE | 2022-01-27 18:55 | EKG ---
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
--- NOTE | 2022-01-27 19:49 | RAD ---
AP chest. HISTORY: Short of breath AP view was taken of the chest. Comparison is made with a study from January 2021. There is a left pace maker without change. There is no pneumothorax or pleural effusion. There is atherosclerotic change i n the aorta. There are no acute infiltrates. IMPRESSION: 1. No acute infiltrates. Electronically signed by: Brenton Stanley MD (01/27/2022 7:46 PM) [facility]
== END 2022-01-27 18:35 | disposition home or self-care (01) ==
LOC: ER 13:15
DX: R06.02 Shortness of breath (principal); I48.91 Unspecified atrial fibrillation; J44.9 Chronic obstructive pulmonary disease, unspecified; K21.9 Gastro-esophageal reflux disease without esophagitis; E78.00 Pure hypercholesterolemia, unspecified; I10 Essential (primary) hypertension; I25.2 Old myocardial infarction; I11.0 Hypertensive heart disease with heart failure; I50.9 Heart failure, unspecified; Z86.73 Personal history of transient ischemic attack (TIA), and cerebral infarction without residual deficits; Z95.0 Presence of cardiac pacemaker; Z95.1 Presence of aortocoronary bypass graft; Z91.041 Radiographic dye allergy status; Z88.5 Allergy status to narcotic agent; Z91.040 Latex allergy status; Z88.8 Allergy status to other drugs, medicaments and biological substances
CPT/HCPCS: 36415; 71045; 80053; 81001; 82274; 85025; 85610; 85730; 87426; 93005; 99285-25

== ENCOUNTER 2022-02-20 09:40 | Inpatient (IN) | payer MEDICARE, BC ==
[~2022-02-20] VITALS: Ht 190.5 cm; Wt 72.8 kg
[2022-02-20 10:26] LABS: BASO % 1 % (0-3); EOS # 0.2 x10^3/uL (0.0-0.7); EOS % 3 % (0-3); HEMATOCRIT 42.8 % (39.0-53.0); HEMOGLOBIN 14.2 g/dL (13.0-17.5); LYMPH # 1.1 x10^3/uL (1.0-4.8); LYMPH % 15 % (24-48); MEAN CORPUSCULAR HEMOGLOBIN 32 pg (25-35); MEAN CORPUSCULAR HGB CONC 33 g/dL (31-37); MEAN CORPUSCULAR VOLUME 96 fL (79-100); MONO # 0.6 x10^3/uL (0.0-1.1); MONO % 8 % (0-9); NEUT # 5.2 x10^3/uL (1.8-7.7); NEUT % 73 % (31-73); PLATELET COUNT 178 x10^3/uL (140-400); RED BLOOD COUNT 4.45 x10^6/uL (4.30-5.70); RED CELL DISTRIBUTION WIDTH 15.1 % (11.5-14.5); WHITE BLOOD COUNT 7.2 x10^3/uL (4.0-11.0)
--- NOTE | 2022-02-20 10:26 | EKG ---
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
[2022-02-20 11:12] LABS: CALCIUM 8.4 mg/dL (8.5-10.1); CREATININE 1.2 mg/dL (0.7-1.3); GFR 70.5; POTASSIUM 4.2 mmol/L (3.5-5.1)
[2022-02-20 11:18] LABS: ALBUMIN 2.9 g/dL (3.4-5.0); ALBUMIN/GLOBULIN RATIO 0.8 (1.0-1.7); TOTAL BILIRUBIN 0.3 mg/dL (0.2-1.0); TOTAL PROTEIN 6.5 g/dL (6.4-8.2)
--- NOTE | 2022-02-20 14:59 | PDOC2 ---
CARDIAC CONSULT DATE OF CONSULT Date of Consult DATE: 02/20/22 TIME: 13:37 REASON FOR CONSULT Reason for Consult: Dizziness REFERRING PHYSICIAN Referring Physician: Braden SOURCE Source: Chart review, Patient HISTORY OF PRESENT ILLNESS HISTORY OF PRESENT ILLNESS This is a pleasant 82 yo male admitted for complains of dizziness. Reports that he has been feeling weak and dizzy more so when he is upright or when he stands up. No vertigo, palpitations. No chest pain or SOA. He almost passed out at one point. He went to our office today brought in by his brother and could just not stay upright sitting because of dizziness. He does take 4x daily of oxcodone but could not ascertain his medications including use of midodrine and florinef as the [facility] does prepare his meds for him when he gets visited. No recent falls. No nausea or vomiting or diarrhea. 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 He drinks ensure in AM and dinner and eats sandwich midday. No fever or chills and no viral symptoms. He was checked for orthostatic readings in ED and noted approximately 20 point SBP drop from laying to sitting. He lives by himself and visited by [facility] and son. PAST MEDICAL HISTORY Past Medical History Cardiovascular: AFIB, CAD, CHF, HTN, NE, Hyperlipidemia, orthostasis Pulmonary: Bronchitis, COPD CENTRAL NERVOUS SYSTEM: CVA, Peripheral neuropathy, dementia, seizures GI: Constipation, GERD Heme/Onc: No pertinent hx, Other Hepatobiliary: No pertinent hx Psych: Addictions Musculoskeletal: low back pain, OA Rheumatologic: No pertinent hx Infectious disease: No pertinent hx Renal/: Benign prostatic enlarg. PAST SURGICAL HISTORY Past Surgical History AICD with repair due to lead fracture, CABG, Cataract Removal, Hernia Repair FAMILY HISTORY Family History: Heart Disease SOCIAL HISTORY Smoke: No ALCOHOL: none Drugs: None Lives: with Family ALLERGIES ALLERGIES: Coded Allergies: Iodinated Contrast Media (Verified Allergy, Severe, anaphalaxis, short of air, 02/20/22) adhesive (Verified Allergy, Severe, PAINFUL SKIN IRRITATION , 02/20/22) latex (Verified Allergy, Intermediate, Hives, 02/20/22) morphine (Verified Allergy, Intermediate, 02/20/22) ROS Review of System 14 point ROS evaluated with pertinent positives noted per HPI PHYSICAL EXAM General: Alert, Oriented X3, Cooperative, No acute distress HEENT: Atraumatic, Mucous membr. moist/pink Lungs: Clear to auscultation, Normal air movement Heart: Regular rate (atrial pacing), Normal S1, Normal S2, No murmurs Abdomen: Soft, No tenderness Extremities: No cyanosis, No edema Skin: No breakdown Neuro: Normal speech, Sensation intact Psych/Mental Status: Mental status NL, Mood NL MUSCULOSKELETAL: Osteoarthritic changes both hands VITALS/I&O VITALS/I&O: Vital Signs Date Time Temp Pulse Resp B/P (MAP) Pulse Ox O2 Delivery O2 Flow Rate FiO2 02/20/22 09:51 98.2 76 18 113/71 (85) 94 Room Air 98.2 LABS Lab: Laboratory Tests Test 02/20/22 10:10 02/20/22 10:50 White Blood Count 7.2 x10^3/uL (4.0-11.0) Red Blood Count 4.45 x10^6/uL (4.30-5.70) Hemoglobin 14.2 g/dL (13.0-17.5) Hematocrit 42.8 % (39.0-53.0) Mean Corpuscular Volume 96 fL (79-100) Mean Corpuscular Hemoglobin 32 pg (25-35) Mean Corpuscular Hemoglobin Concent 33 g/dL (31-37) Red Cell Distribution Width 15.1 % (11.5-14.5) H Platelet Count 178 x10^3/uL (140-400) Neutrophils (%) (Auto) 73 % (31-73) Lymphocytes (%) (Auto) 15 % (24-48) L Monocytes (%) (Auto) 8 % (0-9) Eosinophils (%) (Auto) 3 % (0-3) Basophils (%) (Auto) 1 % (0-3) Neutrophils # (Auto) 5.2 x10^3/uL (1.8-7.7) Lymphocytes # (Auto) 1.1 x10^3/uL (1.0-4.8) Monocytes # (Auto) 0.6 x10^3/uL (0.0-1.1) Eosinophils # (Auto) 0.2 x10^3/uL (0.0-0.7) Basophils # (Auto) 0.0 x10^3/uL (0.0-0.2) Sodium Level 145 mmol/L (136-145) Potassium Level 4.2 mmol/L (3.5-5.1) Chloride Level 109 mmol/L (98-107) H Carbon Dioxide Level 30 mmol/L (21-32) Anion Gap 6 (6-14) Blood Urea Nitrogen 18 mg/dL (8-26) Creatinine 1.2 mg/dL (0.7-1.3) Estimated GFR (Cockcroft-Gault) 70.5 BUN/Creatinine Ratio 15 (6-20) Glucose Level 80 mg/dL (70-99) Calcium Level 8.4 mg/dL (8.5-10.1) L Total Bilirubin 0.3 mg/dL (0.2-1.0) Aspartate Amino Transferase (AST) 16 U/L (15-37) Alanine Aminotransferase (ALT) 14 U/L (16-63) L Alkaline Phosphatase 92 U/L (46-116) Troponin I High Sensitivity 8 ng/L (4-75) Total Protein 6.5 g/dL (6.4-8.2) Albumin 2.9 g/dL (3.4-5.0) L Albumin/Globulin Ratio 0.8 (1.0-1.7) L Lipase 111 U/L (73-393) Laboratory Tests 02/20/22 10:10 Laboratory Tests 02/20/22 10:50 ECHOCARDIOGRAM ECHOCARDIOGRAM <Conclusion> The left ventricular systolic function is normal and the ejection fraction is within normal range. The Ejection Fraction is 50-55%. There is normal LV segmental wall motion. There is a pacing lead noted in the RA/RV DATE: 02/06/21 [id number] 0 ASSESSMENT/PLAN ASSESSMENT/PLAN 1. Presyncope: notable for hx of autonomic dysfunction with orthostasis. + for orthostasis. Potentially opioid also contributing. No acute EKG changes 2. PAFIB: SR with atrial pacing. On Amiodarone for rhythm maintenance 3. H/o cardiomyopathy s/p AICD ([employer]). EF recovered 50-55% 01/2021 TTE 4. Hyperlipidemia; statin 5. S/p AAA, s/p Iliac artery aneurysm repair. stable 6. COPD: controlled 7. H/o seizures: no recent episodes 8. H/o PE on warfarin therapy 9. Hx of CVA and dementia 10. Severe cervical stenosis 11. Chronic pain syndrome/chronic opioid use with hx of back surgery Recommendations Secondary prevention measures. He is supposed to be on midodrine and florinef. I talked to his home health and [facility] pharmacy and he has not filled midodrine since 2019 and no florinef listed. Will restart midodrine Amiodarone for rhythm maintenance Mechanical compressions if he complies Interrogate device SS consult. Will be admitted today as it is also unsafe for him to go home for now as he lives alone. Will check INR CRYSTAL BAUTISTA APRN February 20, 2022 14:59
--- NOTE | 2022-02-20 15:04 | PHYS DOC ---
Past Medical History Past Medical History: A-Fib, Arrhythmia, Bronchitis, CHF, Constipation, COPD, CVA, GERD, GI Bleed, High Cholesterol, Hypertension, Hypotension, Kidney Stone, ND, Other Additional Past Medical Histor: PACEMAKER; AAA; PE; AFIB; BLE NEUROPATHY; ACALASIA; PROSTATE Past Surgical History: Coronary Bypass Surgery, Pacemaker Additional Past Surgical Histo: BACK, lumbar fusion, cataract Smoking Status: Never Smoker Alcohol Use: None Drug Use: None General Adult EDM: Chief Complaint: DIZZY/LIGHT HEADED HPI: HPI: 82-year-old male with multiple comorbidities including PE, paroxysmal A. fib on a defibrillator presents today with dizziness. States that this has been going on for several months. I spoke to cardiology on-call who state that they are unsure if the patient is taking his medications for autonomic dysfunction. Patient's pharmacy was contacted and they do not have records of him picking up his midodrine. Patient states that the dizziness is an off-balance feeling that the room spinning. Denies any head trauma or nausea or vomiting or diarrhea. Denies any history of anemia. Today he was at the cardiology office where he was so dizzy and fatigued his head kept falling to almost his knees. Therefore they sent him to the ER for evaluation. Patient states that he feels fine when he sits but cannot stand up properly. Review of Systems: Review of Systems: Constitutional: Positive for dizziness and fatigue Eyes: Denies change in visual acuity. [] HENT: Denies nasal congestion or sore throat. [] Respiratory: Denies cough or shortness of breath. [] Cardiovascular: Denies chest pain or edema. [] GI: Denies abdominal pain, nausea, vomiting, bloody stools or diarrhea. [] : Denies dysuria. [] Musculoskeletal: Denies back pain or joint pain. [] Integument: Denies rash. [] Neurologic: Denies headache, focal weakness or sensory changes. [] Endocrine: Denies polyuria or polydipsia. [] Lymphatic: Denies swollen glands. [] Psychiatric: Denies depression or anxiety. [] Heart Score: C/O Chest Pain: No Risk Factors: Risk Factors: DM, Current or recent (<one month) smoker, HTN, HLP, family history of CAD, obesity. Risk Scores: Score 0 - 3: 2.5% MACE over next 6 weeks - Discharge Home Score 4 - 6: 20.3% MACE over next 6 weeks - Admit for Clinical Observation Score 7 - 10: 72.7% MACE over next 6 weeks - Early Invasive Strategies Allergies: Allergies: Allergies Coded Allergies Type Severity Reaction Last Updated Verified Iodinated Contrast Media Allergy Severe anaphalaxis, short of air 02/20/22 Yes adhesive Allergy Severe PAINFUL SKIN IRRITATION 02/20/22 Yes latex Allergy Intermediate Hives 02/20/22 Yes morphine Allergy Intermediate 02/20/22 Yes Physical Exam: PE: Constitutional: Well developed, well nourished, no acute distress, non-toxic appearance. [] HENT: Normocephalic, atraumatic, bilateral external ears normal, oropharynx moist, no oral exudates, nose normal. [] Eyes: PERRLA, EOMI, conjunctiva normal, no discharge. [] Neck: Normal range of motion, no tenderness, supple, no stridor. [] Cardiovascular:Heart rate regular rhythm, no murmur [] Lungs & Thorax: Bilateral breath sounds clear to auscultation [] Abdomen: Bowel sounds normal, soft, no tenderness, no masses, no pulsatile masses. [] Skin: Warm, dry, no erythema, no rash. [] Back: No tenderness, no CVA tenderness. [] Extremities: No tenderness, no cyanosis, no clubbing, ROM intact, no edema. [] Neurologic: Alert and oriented X 3, normal motor function, normal sensory functi on, no focal deficits noted. [] Psychologic: Affect normal, judgement normal, mood normal. [] Current Patient Data: Labs: Laboratory Tests Test 02/20/22 10:10 02/20/22 10:50 White Blood Count 7.2 x10^3/uL (4.0-11.0) Red Blood Count 4.45 x10^6/uL (4.30-5.70) Hemoglobin 14.2 g/dL (13.0-17.5) Hematocrit 42.8 % (39.0-53.0) Mean Corpuscular Volume 96 fL (79-100) Mean Corpuscular Hemoglobin 32 pg (25-35) Mean Corpuscular Hemoglobin Concent 33 g/dL (31-37) Red Cell Distribution Width 15.1 % (11.5-14.5) H Platelet Count 178 x10^3/uL (140-400) Neutrophils (%) (Auto) 73 % (31-73) Lymphocytes (%) (Auto) 15 % (24-48) L Monocytes (%) (Auto) 8 % (0-9) Eosinophils (%) (Auto) 3 % (0-3) Basophils (%) (Auto) 1 % (0-3) Neutrophils # (Auto) 5.2 x10^3/uL (1.8-7.7) Lymphocytes # (Auto) 1.1 x10^3/uL (1.0-4.8) Monocytes # (Auto) 0.6 x10^3/uL (0.0-1.1) Eosinophils # (Auto) 0.2 x10^3/uL (0.0-0.7) Basophils # (Auto) 0.0 x10^3/uL (0.0-0.2) Sodium Level 145 mmol/L (136-145) Potassium Level 4.2 mmol/L (3.5-5.1) Chloride Level 109 mmol/L (98-107) H Carbon Dioxide Level 30 mmol/L (21-32) Anion Gap 6 (6-14) Blood Urea Nitrogen 18 mg/dL (8-26) Creatinine 1.2 mg/dL (0.7-1.3) Estimated GFR (Cockcroft-Gault) 70.5 BUN/Creatinine Ratio 15 (6-20) Glucose Level 80 mg/dL (70-99) Calcium Level 8.4 mg/dL (8.5-10.1) L Total Bilirubin 0.3 mg/dL (0.2-1.0) Aspartate Amino Transferase (AST) 16 U/L (15-37) Alanine Aminotransferase (ALT) 14 U/L (16-63) L Alkaline Phosphatase 92 U/L (46-116) Troponin I High Sensitivity 8 ng/L (4-75) Total Protein 6.5 g/dL (6.4-8.2) Albumin 2.9 g/dL (3.4-5.0) L Albumin/Globulin Ratio 0.8 (1.0-1.7) L Lipase 111 U/L (73-393) Laboratory Tests 02/20/22 10:10 Laboratory Tests 02/20/22 10:50 Vital Signs: Vital Signs Date Time Temp Pulse Resp B/P (MAP) Pulse Ox O2 Delivery O2 Flow Rate FiO2 02/20/22 13:18 70 24 114/74 (87) 95 Room Air 02/20/22 09:51 98.2 98.2 EKG: EKG: [] Radiology/Procedures: Radiology/Procedures: [] Course & Med Decision Making: Course & Med Decision Making Pertinent Labs and Imaging studies reviewed. (See chart for details) Patient has obvious dizziness when standing up. Patient was evaluated by cardiology who state that he needs to be restarted back on his autonomic dysfunction medications. Patient likely has orthostatic hypotension along with other issues. They agreed to be consulted and the patient will be admitted to medicine. Dragon Disclaimer: Dragon Disclaimer: This electronic medical record was generated, in whole or in part, using a voice recognition dictation system. Departure Departure Impression: Primary Impression: Autonomic dysfunction Disposition: ADMITTED INPATIENT Condition: STABLE Referrals: Hazel MEADOWS MD (PCP) JAY OBRIEN MD February 20, 2022 15:04
[2022-02-20 15:23] LABS: PROTHROMBIN TIME PATIENT 23.3 SEC (11.7-14.0)
[2022-02-20] MEDS: AMIODARONE HCL 200 MG TABLET. PO SCH (16:28)
[2022-02-20] MEDS: ASPIRIN CHEWABLE 81 MG TABLET. PO SCH (16:28)
[2022-02-20 18:15] VITALS: BP 108/62
--- NOTE | 2022-02-20 18:37 | HP ---
DATE OF SERVICE: 02/20/2022 ADMIT DATE: 02/20/2022 CHIEF COMPLAINT: Dizziness. HISTORY OF PRESENT ILLNESS: The patient is a pleasant 82-year-old male who was seen at the Cardiology office today by the nurse practitioner. Apparently, the patient has been dizzy. He was sitting there with his head between his knees. He was dizzy when he stood up. Apparently, he has not been taking his meds as prescribed. I discussed the case with ER physician. We are going to admit the patient and consult his Cardiology team and adjust his medications. PAST MEDICAL HISTORY: AFib, history of cardiomyopathy with a 50-55% ejection fraction, AICD, hyperlipidemia, AAA repair, COPD, seizures, PE, stroke, cervical stenosis, chronic pain, orthostasis, polypharmacy, asthma, BPH, chronic anticoagulation, arrhythmias, arthritis, neuropathy, edema, CHF, GERD. ALLERGIES: IODINE, ADHESIVE, LATEX AND MORPHINE. FAMILY HISTORY: Diabetes. SOCIAL HISTORY: Does not drink, smoke or take drugs. 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 MEDICATIONS: Reviewed. He is on 21 meds. Please refer to the MRAD. REVIEW OF SYSTEMS: GENERAL: No history of weight change, weakness or fevers. SKIN: No bruising, hair changes or rashes. EYES: No blurred, double or loss of vision. NOSE AND THROAT: No history of nosebleeds, hoarseness or sore throat. HEART: No history of palpitations, chest pain or shortness of breath on exertion. LUNGS: Denies cough, hemoptysis, wheezing or shortness of breath. GASTROINTESTINAL: Denies changes in appetite, nausea, vomiting, diarrhea or constipation. GENITOURINARY: No history of frequency, urgency, hesitancy or nocturia. NEUROLOGIC: He complains of dizziness. PSYCHIATRIC: No history of panic, anxiety or depression. ENDOCRINE: No history of heat or cold intolerance, polyuria or polydipsia. EXTREMITIES: Denies muscle weakness, joint pain, pain on walking or stiffness. PHYSICAL EXAMINATION: VITALS: Within normal limits and are stable. GENERAL: No apparent distress. Alert and oriented. HEENT: Normal cephalic atraumatic, external auditory canals are patent. EYES: Extraocular muscles are intact, pupils are equally round and reactive to light and accommodation. MUSCULOSKELETAL: Well developed, well nourished, good range of motion. ENDOCRINE: No thyromegaly was palpated. LYMPHATICS: No cervical chain or axillary nodes were noted. HEMATOPOIETIC: No bruising. NECK: Supple, no JVD, no thyromegaly was noted. LUNGS: Clear to auscultation in all lung holt without rhonchi or wheezing. HEART: RRR, S1, S2 present. Peripheral pulses intact, no obvious murmurs were noted. ABDOMEN: Soft, nontender. Positive bowel sounds no organomegaly, normal bowel sounds. EXTREMITIES: Without any cyanosis, clubbing, or edema. Pedal pulses intact, Homans sign is negative. NEUROLOGIC: Normal speech, normal tone. A and O x 3, moves all extremities, no obvious focal deficits. PSYCHIATRIC: Normal affect, normal mood. Stable. SKIN: No ulcerations or rashes, good skin turgor, no jaundice. VASCULAR: Good capillary refill, neurovascular bundle appears to be intact. LABORATORY DATA: Hematology is normal. Electrolytes are normal. INR is 2.1. ASSESSMENT AND PLAN: Dizziness and orthostasis, suspect noncompliance with his medications. The patient will be admitted. We will start most of his home meds and consult his jumpbasting collar baster. Deep venous thrombosis prophylaxis. Full code. Physical therapy, occupational therapy. Trend labs. Encourage p.o. intake. senior living unit evaluation. HORACIO/BRODY DR: HORACIO/tess TID: [id number]
[2022-02-20] MEDS: MIDODRINE 2.5 MG TABLET PO SCH (20:03)
[2022-02-20] MEDS ORDERED: PRAV40TA2 PO (22:23)
[2022-02-20] MEDS ORDERED: WARF3TAB50 PO (22:28)
[2022-02-20] MEDS ORDERED: WARF4TAB64 PO (22:29)
[2022-02-20 23:00] VITALS: BP 112/62
[2022-02-21] VITALS (7 sets, daily range): BP systolic 104–156; BP diastolic 63–86
[2022-02-21] MEDS: ALBUTEROL SULFATE 2.5 MG/3 ML NEBU. INH PRN ×2 (00:38→08:06)
[2022-02-21] MEDS: MIDODRINE 2.5 MG TABLET PO SCH ×3 (07:00→13:03)
[2022-02-21] MEDS: ASPIRIN CHEWABLE 81 MG TABLET. PO SCH (07:29)
[2022-02-21] MEDS: BUDESONIDE 0.5 MG/2 ML NEBU. NEB SCH ×3 (07:30→17:28)
[2022-02-21] MEDS: FLUTICASONE 50MCG/NASAL SPRAY 16GM BOTTLE. NS SCH (07:30)
[2022-02-21] MEDS: AMIODARONE HCL 200 MG TABLET. PO SCH (07:30)
[2022-02-21] MEDS: IPRATRPIUM/ALBUTEROL 0.5/2.5MG 3 ML NEBU. NEB SCH ×4 (08:00→17:27)
--- NOTE | 2022-02-21 12:15 | PDOC ---
CRYSTAL BAUTISTA FENCE INSTALLER 02/21/22 1215: CARDIO Progress Notes Date and Time Date of Service 02/21/2022 Time of Evaluation 1200 Subjective Subjective: No Chest Pain, No shortness of breath, No Palpitations Vitals Vitals Vital Signs Date Time Temp Pulse Resp B/P (MAP) Pulse Ox O2 Delivery O2 Flow Rate FiO2 02/21/22 11:25 95 Room Air 02/21/22 11:00 99.0 69 18 117/70 (86) 99.0 Weight Weight [ ] Input and Output Intake and Output Intake and Output 02/21/22 07:00 Intake Total 200 ml Balance 200 ml Intake Oral 200 ml # Voids 2 Physical Exam HEENT: Neck Supple W Full Motion Chest: Symmetric LUNGS: Clear to Auscultation Heart: S1S2, RRR (SR) Abdomen: Soft N/T Extremities: No Edema, No Calf Tenderness Neurology: alert, oriented, follow commands Assessment Assessment 1. Presyncope: notable for hx of autonomic dysfunction with orthostasis. + for orthostasis. BP better after midodrine 2. PAFIB: SR with atrial pacing. On Amiodarone for rhythm maintenance 3. H/o cardiomyopathy s/p AICD (Medtronic). EF recovered 50-55% 01/2021. No arrhythmias 4. Hyperlipidemia; statin 5. S/p AAA, s/p Iliac artery aneurysm repair. stable 6. COPD: controlled 7. H/o seizures: no recent episodes 8. H/o PE on warfarin therapy 9. Hx of CVA and dementia 10. Severe cervical stenosis 11. Chronic pain syndrome/chronic opioid use with hx of back surgery Recommendations Secondary prevention measures. He is supposed to be on midodrine and florinef. I talked to his home health and [facility] pharmacy and he has not filled midodrine since 2019 and no florinef listed. Continue midodrine Amiodarone for rhythm maintenance Mechanical compressions if he complies SS consult. May need rehab, so far unsafe to be alone at home Continues to have dizziness despite no arrhythmias, BP stable.He has chronic opioid use and potentially his cervical stenosis could be contributing to his balance and dizziness symptoms. Will defer this further to PCP Justicifation of Admission Dx: Justifications for Admission: Justification of Admission Dx: No RENATO SEO MD 02/21/22 1631: CARDIO Progress Notes Assessment Assessment Patient seen and examined He looks and feels better today. I agree with our nurse practitioners assessment and plan. Presyncope: notable for hx of autonomic dysfunction with orthostasis. + for orthostasis. BP better after midodrine PAFIB: SR with atrial pacing. On Amiodarone for rhythm maintenance H/o cardiomyopathy s/p AICD (Medtronic). EF recovered 50-55% 01/2021. No arrhythmias Hyperlipidemia; statin S/p AAA, s/p Iliac artery aneurysm repair. stable COPD: controlled H/o seizures: no recent episodes H/o PE on warfarin therapy Hx of CVA and dementia Severe cervical stenosis Chronic pain syndrome/chronic opioid use with hx of back surgery CRYSTAL BAUTISTA APRN February 21, 2022 12:15 RENATO SEO MD February 21, 2022 16:31
--- NOTE | 2022-02-21 12:19 | PDOC ---
[facility] PROGRESS NOTE Date of Service DOS: DATE: 02/21/22 TIME: 12:05 Chief Complaint Chief Complaint Presyncope A. fib on Coumadin CAD s/p AICD HLD Hx AAA COPD Hx seizures History PEs on warfarin History of CVA and dementia Severe cervical stenosis History of Present Illness History of Present Illness 02/21: Afebrile. Cardiology has resumed his midodrine and amiodarone for rate control. Still complains of dizziness, worse with standing up or looking up. Patient informed not to get up without nursing assistance for PT/OT assistance. We will have him work with PT/OT since he lives at home. We will have pharmacy dose his warfarin, given his history of PEs. Vitals/I&O Vitals/I&O: Vital Signs Date Time Temp Pulse Resp B/P (MAP) Pulse Ox O2 Delivery O2 Flow Rate FiO2 02/21/22 11:25 95 Room Air 02/21/22 11:00 99.0 69 18 117/70 (86) 99.0 I & O 02/20/22 02/20/22 02/21/22 15:00 23:00 07:00 Intake Total 200 ml Balance 200 ml Physical Exam General: Alert, Oriented X3, Cooperative, No acute distress Heart: Regular rate (atrial pacing), Normal S1, Normal S2, No murmurs Lungs: Clear, Other Abdomen: Soft, No tenderness Extremities: No cyanosis, No edema Skin: No breakdown Assessment and Plan Assessmemt and Plan Problems Medical Problems: (1) Autonomic dysfunction Status: Acute Comment Review of Relevant I have reviewed the following items mckayla (where applicable) has been applied. Medications: Current Medications Medications (Trade) Dose Ordered Sig/Alma Rosa Route PRN Reason Start Time Stop Time Status Last Admin Dose Admin Midodrine (Proamatine) 2.5 mg [id number] PO 02/20/22 18:00 02/20/22 20:03 Amiodarone HCl (Cordarone) 200 mg DAILY PO 02/20/22 16:00 02/21/22 07:30 Aspirin (Aspirin Chewable) 81 mg DAILY PO 02/20/22 16:00 02/21/22 07:29 Albuterol Sulfate (Ventolin Neb Soln) 2.5 mg PRN Q6HRS PRN INH SHORTNESS OF BREATH 02/20/22 22:45 02/21/22 08:06 Albuterol/ Ipratropium (Duoneb) 3 ml RTQID NEB 02/21/22 08:00 02/21/22 11:24 Fluticasone Propionate (Flonase) 1 spray DAILY NS 02/21/22 09:00 02/21/22 07:30 Budesonide (Pulmicort) 0.5 mg RTBID NEB 02/21/22 08:00 02/21/22 08:06 Justifications for Admission Other Justification angina, dizziness, orthostasis SOULEYMANE RUSSELL MD February 21, 2022 12:19
[2022-02-21] MEDS ORDERED: HEPARIN for SUB-Q USE 5,000 UNIT/ML VIAL. SQ SCH (13:00)
[2022-02-21] MEDS ORDERED: WARFARIN 5 MG TABLET. PO ONE (13:00)
--- NOTE | 2022-02-21 15:37 | NUR ---
SS following for discharge planning. SS reviewed pt chart and discussed with pt RN. Pt is from home and is currently on room air. Pt is current on services with [facility], ; fax [phone]. Cardiology following. PT/OT ordered. SS will continue to follow for discharge planning.
--- NOTE | 2022-02-21 15:46 | CARD ---
MR#: [id number] Date of Study: 02/21/2022 Ordering Physician: CRYSTAL BAUTISTA, Referring Physician: CRYSTAL BAUTISTA Tech: Jia Shirley [facility] [[email or web address] APPROVED REPORT EXAM: Two-dimensional and M-mode echocardiogram with Doppler and color Doppler. Other Information Quality : Technically LimitedHR: 128bpm Rhythm : NSR INDICATION COPD Cardiomyopathy Syncope RISK FACTORS Hypertension 2D DIMENSIONS Left Atrium(2D)4.2 (1.6-4.0cm)IVSd1.1 (0.7-1.1cm) Aortic Root(2D)3.8 (2.0-3.7cm)LVDd5.3 (3.9-5.9cm) LVOT Diameter2.6 (1.8-2.4cm)PWd1.1 (0.7-1.1cm) LVDs4.2 (2.5-4.0cm)FS (%) 21.3 % SV58.4 ml Tricuspid Valve TR P. [id number] Peak Gr.30mmHg LEFT VENTRICLE Technically difficult study. The left ventricle is normal size. There is borderline to mild concentr ic left ventricular hypertrophy. The left ventricular systolic function is normal. LV ejection fracti on is 50 to 55%. There is normal LV segmental wall motion. RIGHT VENTRICLE The right ventricle is normal size. There is normal right ventricular wall thickness. The right ventr icular systolic function is normal. ATRIA The left atrium is mildly dilated. The right atrium is mildly dilated. The interatrial septum is inta ct with no evidence for an atrial septal defect or patent foramen ovale as noted on 2-D or Doppler im aging. AORTIC VALVE The aortic valve is normal in structure and function. Doppler and Color Flow revealed no significant aortic regurgitation. There is no significant aortic valvular stenosis. MITRAL VALVE The mitral valve is normal in structure and function. There is no evidence of mitral valve prolapse. There is no mitral valve stenosis. Doppler and Color-flow revealed mild mitral regurgitation. TRICUSPID VALVE The tricuspid valve is normal in structure and function. Doppler and Color Flow revealed mild tricusp id regurgitation. Estimated PAP 35-40 mmHg. There is no tricuspid valve stenosis. PULMONIC VALVE The pulmonary valve is normal in structure and function. Doppler and Color Flow revealed no pulmonic valvular regurgitation. GREAT VESSELS The aortic root is normal in size. The ascending aorta is normal in size. The IVC is normal in size a nd collapses >50% with inspiration. PERICARDIAL EFFUSION There is no evidence of significant pericardial effusion. Critical Notification Critical Value: No <Conclusion> Technically difficult study. The left ventricle is normal size. The left ventricular systolic function is normal. LV ejection fraction is 50 to 55%. There is borderline to mild concentric left ventricular hypertrophy. Doppler and Color Flow revealed no significant aortic regurgitation. There is no significant aortic valvular stenosis. Doppler and Color-flow revealed mild mitral regurgitation. Doppler and Color Flow revealed mild tricuspid regurgitation. Estimated PAP 35-40 mmHg. Signed by : Adriel Gao MD Electronically Approved : 02/21/2022 15:46:12
[2022-02-21] MEDS: ZOLPIDEM 5 MG TABLET. PO PRN (20:38)
[2022-02-22 03:01] VITALS: BP 149/89
[2022-02-22] MEDS: ALBUTEROL SULFATE 2.5 MG/3 ML NEBU. INH PRN (03:35)
[2022-02-22 04:27] LABS: PROTHROMBIN TIME PATIENT 19.3 SEC (11.7-14.0)
[2022-02-22] MEDS: MIDODRINE 2.5 MG TABLET PO SCH ×2 (06:17→16:17)
[2022-02-22 06:35] VITALS: BP 124/78
[2022-02-22] MEDS: BUDESONIDE 0.5 MG/2 ML NEBU. NEB SCH ×2 (07:04→20:12)
[2022-02-22] MEDS: IPRATRPIUM/ALBUTEROL 0.5/2.5MG 3 ML NEBU. NEB SCH ×4 (07:04→20:12)
[2022-02-22] MEDS: AMIODARONE HCL 200 MG TABLET. PO SCH (08:25)
[2022-02-22] MEDS: ASPIRIN CHEWABLE 81 MG TABLET. PO SCH (08:26)
[2022-02-22] MEDS: FLUTICASONE 50MCG/NASAL SPRAY 16GM BOTTLE. NS SCH (08:26)
[2022-02-22 10:41] VITALS: BP 123/74
--- NOTE | 2022-02-22 12:53 | PDOC ---
[facility] PROGRESS NOTE Date of Service DOS: DATE: 02/22/22 TIME: 12:51 Chief Complaint Chief Complaint Presyncope A. fib on Coumadin CAD s/p AICD HLD Hx AAA COPD Hx seizures History PEs on warfarin History of CVA and dementia Severe cervical stenosis History of Present Illness History of Present Illness 02/22: Patient notes improvement in his dizziness. Still with complaints of intolerable back pain. Worked with PT and recommended SNU, however patient would prefer to discharge home with home health. He reports prior bad experiences with rehab facilities, saying they do not adequately treat his pain. States he is in pain all the time from previous back injuries and surgeries. We will keep inpatient for continued work with physical therapy and vestibular rehab in hopes that he changes his mind about SNU by Thursday. As needed Percocet. If not he will discharge home with home health. 02/21: Afebrile. Cardiology has resumed his midodrine and amiodarone for rate control. Still complains of dizziness, worse with standing up or looking up. Patient informed not to get up without nursing assistance for PT/OT assistance. We will have him work with PT/OT since he lives at home. We will have pharmacy dose his warfarin, given his history of PEs. Vitals/I&O Vitals/I&O: Vital Signs Date Time Temp Pulse Resp B/P (MAP) Pulse Ox O2 Delivery O2 Flow Rate FiO2 02/22/22 11:07 97 Room Air 02/22/22 10:41 98.3 74 18 123/74 (90) 98.3 I & O 02/21/22 02/21/22 02/22/22 15:00 23:00 07:00 Intake Total 280 ml 150 ml Balance 280 ml 150 ml Physical Exam General: Alert, Oriented X3, Cooperative, mild distress Heart: Regular rate (atrial pacing), Normal S1, Normal S2, No murmurs Lungs: Clear, Other Abdomen: Soft, No tenderness Extremities: No cyanosis, No edema Skin: No breakdown Labs Labs: Laboratory Tests Test 02/22/22 04:00 Prothrombin Time 19.3 SEC (11.7-14.0) Prothromb Time International Ratio 1.7 (0.8-1.1) Assessment and Plan Assessmemt and Plan Problems Medical Problems: (1) Autonomic dysfunction Status: Acute Comment Review of Relevant I have reviewed the following items mckayla (where applicable) has been applied. Medications: Current Medications Medications (Trade) Dose Ordered Sig/Alma Rosa Route PRN Reason Start Time Stop Time Status Last Admin Dose Admin Warfarin Sodium (Coumadin) 5 mg 1X WARF ONCE PO 02/21/22 13:00 02/21/22 13:01 DC 02/21/22 13:03 Zolpidem Tartrate (Ambien) 5 mg PRN QHS PRN PO INSOMNIA 02/21/22 17:00 02/21/22 20:38 Justifications for Admission Other Justification angina, dizziness, orthostasis SOULEYMANE RUSSELL MD February 22, 2022 12:53
[2022-02-22] MEDS ORDERED: oxyCODONE/APAP 5/325 1 TAB TABLET PO PRN (13:00)
--- NOTE | 2022-02-22 13:26 | PDOC ---
PROGRESS NOTES Date of Service DATE: 02/22/22 TIME: 13:23 Subjective Subjective Patient seen and examined He is more alert and feeling mildly better today. Objective Objective Vital Signs Date Time Temp Pulse Resp B/P (MAP) Pulse Ox O2 Delivery O2 Flow Rate FiO2 02/22/22 11:07 97 Room Air 02/22/22 10:41 98.3 74 18 123/74 (90) 98.3 Intake and Output 02/22/22 07:00 Intake Total 430 ml Balance 430 ml Intake Oral 430 ml # Voids 6 Physical Exam Abdomen: Normal bowel sounds Heart: Regular rate General: No acute distress Lungs: Clear to auscultation Assessment Assessment Problems Medical Problems: (1) Autonomic dysfunction Status: Acute 1. Presyncope: notable for hx of autonomic dysfunction with orthostasis. + for orthostasis. BP better after midodrine. Gradually increasing activity. 2. PAFIB: SR with atrial pacing. On Amiodarone for rhythm maintenance 3. H/o cardiomyopathy s/p AICD ([employer]). EF recovered 50-55% 01/2021. No arrhythmias 4. Hyperlipidemia; statin 5. S/p AAA, s/p Iliac artery aneurysm repair. stable 6. COPD: controlled 7. H/o seizures: no recent episodes 8. H/o PE on warfarin therapy 9. Hx of CVA and dementia 10. Severe cervical stenosis 11. Chronic pain syndrome/chronic opioid use with hx of back surgery. Discussed transfer to a nursing facility. At this time he still wishes to go home with home health care. We will continue discussion with the patient. Continue present treatmen Justicifation of Admission Dx: Comment Review of Relevant I have reviewed the following items mckayla (where applicable) has been applied. Labs Laboratory Tests Test 02/22/22 04:00 Prothrombin Time 19.3 SEC (11.7-14.0) Prothromb Time International Ratio 1.7 (0.8-1.1) Laboratory Tests Test 02/22/22 04:00 Prothrombin Time 19.3 SEC (11.7-14.0) Prothromb Time International Ratio 1.7 (0.8-1.1) Medications Current Medications Midodrine (Proamatine) 2.5 mg [id number] PO Last administered on 02/21/22at 13:03; Start 02/20/22 at 18:00; Stop 02/21/22 at 13:00; Status DC Amiodarone HCl (Cordarone) 200 mg DAILY PO Last administered on 02/22/22at 08:25; Start 02/20/22 at 16:00 Aspirin (Aspirin Chewable) 81 mg DAILY PO Last administered on 02/22/22at 08:26; Start 02/20/22 at 16:00 Albuterol Sulfate (Ventolin Neb Soln) 2.5 mg PRN Q6HRS PRN INH SHORTNESS OF BREATH Last administered on 02/22/22at 03:35; Start 02/20/22 at 22:45 Albuterol/ Ipratropium (Duoneb) 3 ml RTQID NEB Last administered on 02/22/22at 11:07; Start 02/21/22 at 08:00 Fluticasone Propionate (Flonase) 1 spray DAILY NS Last administered on 02/22/22at 08:26; Start 02/21/22 at 09:00 Budesonide (Pulmicort) 0.5 mg RTBID NEB Last administered on 02/22/22at 07:04; Start 02/21/22 at 08:00 Heparin Sodium (Porcine) (Heparin Sodium) 5,000 unit Q12HR SQ ; Start 02/21/22 at 13:00; Stop 02/21/22 at 12:10; Status DC Warfarin Sodium (Coumadin Per Pharmacy) 1 each PRN DAILY PRN MC SEE COMMENTS; Start 02/21/22 at 12:15 Warfarin Sodium (Coumadin) 5 mg 1X WARF ONCE PO Last administered on 02/21/22at 13:03; Start 02/21/22 at 13:00; Stop 02/21/22 at 13:01; Status DC Midodrine (Proamatine) 2.5 mg BID@0700,1600 PO ; Start 02/21/22 at 16:00 Zolpidem Tartrate (Ambien) 5 mg PRN QHS PRN PO INSOMNIA Last administered on 02/21/22at 20:38; Start 02/21/22 at 17:00 Oxycodone/ Acetaminophen (Percocet 5/325) 1 tab PRN Q4HRS PRN PO MILD PAIN 1-3; Start 02/22/22 at 13:00 Oxycodone/ Acetaminophen (Percocet 7.5/ 325) 1 tab PRN Q6HRS PRN PO MODERATE,SEVERE PAIN; Start 02/22/22 at 13:00 Active Scripts Active Tramadol Hcl 50 Mg Tablet 50 Mg PO DAILY PRN 2 Days Gabapentin 300 Mg Capsule 300 Mg PO DAILY 90 Days Keppra (Levetiracetam) 500 Mg Tablet 500 Mg PO BID 30 Days Flomax (Tamsulosin Hcl) 0.4 Mg Cap.er.24h 0.4 Mg PO QHS 30 Days Montelukast Sodium Tablet (Montelukast Sodium) 10 Mg Tablet 10 Mg PO QHS 30 Days Advair 250-50 Diskus (Fluticasone/Salmeterol) 1 Each Disk.w.dev 1 Puff IH BID Amiodarone Hcl 200 Mg Tablet 200 Mg PO DAILY 30 Days Duoneb 0.5-3(2.5) Mg/3 Ml (Albuterol/Ipratropium) 3 Ml Ampul.neb 3 Ml NEB RTQID 30 Days [Pantoprazole] 40 MG Tablet.dr 40 Mg PO DAILYAC 30 Days Proair Hfa Inhaler (Albuterol Sulfate) 8.5 Gm Hfa.aer.ad 1 Puff INH PRN Q6HRS PRN Reported Warfarin Sodium 4 Mg Tablet 4 Mg PO DAILY Warfarin Sodium 3 Mg Tablet 3 Mg PO DAILY Pravastatin Sodium 40 Mg Tablet 1 Tab PO DAILY Sucralfate 1 Gm Tablet 1 Tab PO QID Flonase Allergy Relief (Fluticasone Propionate) 9.9 Ml [place].susp 1 Sprays NS DAILY Lasix (Furosemide) 40 Mg Tablet 40 Mg PO DAILY Potassium Chloride 8 Meq Capsule.er 10 Meq PO DAILY Voltaren Arthritis Pain (Diclofenac Sodium) 20 Gm Gel..gram. 20 Gm TP BID Vitamin B-100 Complex Tablet (Vitamin B Complex/Folic Acid) 0.4 Mg Tablet 1 Tab PO DAILY 30 Days Children's Aspirin (Aspirin) 81 Mg Tab.chew 81 Mg PO DAILY Mag-Oxide (Magnesium Oxide) 400 Mg Tablet 400 Mg PO DAILY Trazodone Hcl 100 Mg Tablet 100 Mg PO QHS Oxycodone Hcl 20 Mg Tablet 20 Mg PO TID PRN PRN Vitals/I & O Vital Sign - Last 24 Hours 02/21/22 02/21/22 02/21/22 02/21/22 15:00 15:43 17:29 19:40 Temp 98.7 98.7 98.7 98.7 Pulse 70 81 Resp 18 18 B/P (MAP) 104/63 (77) 156/79 (104) Pulse Ox 96 97 97 96 O2 Delivery Room Air Room Air Room Air Room Air 02/21/22 02/22/22 02/22/22 02/22/22 23:03 03:01 03:35 06:17 Temp 98.0 97.5 98.0 97.5 Pulse 68 88 72 Resp 18 18 B/P (MAP) 144/86 (105) 149/89 (109) 139/81 Pulse Ox 98 97 98 O2 Delivery Room Air Room Air Room Air 02/22/22 02/22/22 02/22/22 02/22/22 06:35 07:06 08:25 10:41 Temp 97.7 98.3 97.7 98.3 Pulse 71 71 74 Resp 18 18 B/P (MAP) 124/78 (93) 124/78 123/74 (90) Pulse Ox 99 98 98 O2 Delivery Room Air Room Air Room Air 02/22/22 11:07 Pulse Ox 97 O2 Delivery Room Air Intake and Output 02/21/22 02/21/22 02/22/22 15:00 23:00 07:00 Intake Total 280 ml 150 ml Balance 280 ml 150 ml Justifications for Admission Other Justification angina, dizziness, orthostasis Nutrition Consultation Dietary Evaluation: Recommendations by RD: Dietary education by RD, Increase Calorie Intake, Protein supplementation Comments: cardiac diet, ground meats ensure tid Expected Outcomes/Goals: to meet >75% est nutr needs Malnutrition Findings: Body Fat Depletion (Non Severe: Mod to Severe Weight Status: Underweight RENATO SEO MD February 22, 2022 13:26
[2022-02-22 14:42] VITALS: BP 130/73
[2022-02-22] MEDS: oxyCODONE/APAP 7.5/325 1 TAB TABLET PO PRN ×2 (15:02→21:29)
[2022-02-22] MEDS ORDERED: WARFARIN 5 MG TABLET. PO ONE (16:00)
[2022-02-22 18:51] VITALS: BP 123/64
[2022-02-22] MEDS: ZOLPIDEM 5 MG TABLET. PO PRN (21:28)
[2022-02-22 22:35] VITALS: BP 129/71
[2022-02-23 03:05] VITALS: BP 144/87
[2022-02-23 04:24] LABS: PROTHROMBIN TIME PATIENT 17.2 SEC (11.7-14.0)
[2022-02-23] MEDS: IPRATRPIUM/ALBUTEROL 0.5/2.5MG 3 ML NEBU. NEB SCH ×4 (06:16→17:52)
[2022-02-23] MEDS: BUDESONIDE 0.5 MG/2 ML NEBU. NEB SCH ×2 (06:16→17:52)
[2022-02-23] MEDS: MIDODRINE 2.5 MG TABLET PO SCH ×2 (06:19→15:19)
[2022-02-23 07:00] VITALS: BP 127/79
[2022-02-23] MEDS: ASPIRIN CHEWABLE 81 MG TABLET. PO SCH (07:54)
[2022-02-23] MEDS: AMIODARONE HCL 200 MG TABLET. PO SCH (07:54)
[2022-02-23] MEDS: FLUTICASONE 50MCG/NASAL SPRAY 16GM BOTTLE. NS SCH (07:54)
[2022-02-23] MEDS: oxyCODONE/APAP 7.5/325 1 TAB TABLET PO PRN (07:54)
[2022-02-23 11:00] VITALS: BP 129/70
--- NOTE | 2022-02-23 14:15 | PDOC ---
PROGRESS NOTES Date of Service DATE: 02/23/22 TIME: 14:14 Subjective Subjective Patient seen and examined Objective Objective Vital Signs Date Time Temp Pulse Resp B/P (MAP) Pulse Ox O2 Delivery O2 Flow Rate FiO2 02/23/22 11:00 97.5 74 18 129/70 (89) 95 Room Air 97.5 Intake and Output 02/23/22 07:00 Intake Total 1110 ml Output Total 500 ml Balance 610 ml Intake Oral 1110 ml Output Urine Total 500 ml # Voids 2 # Bowel Movements 1 Physical Exam Abdomen: Normal bowel sounds Heart: Regular rate General: No acute distress Lungs: Clear to auscultation Assessment Assessment Problems Medical Problems: (1) Autonomic dysfunction Status: Acute 1. Presyncope: notable for hx of autonomic dysfunction with orthostasis. + for orthostasis. BP better after midodrine. The patient continues to improve and is increasing his activity. 2. PAFIB: SR with atrial pacing. On Amiodarone for rhythm maintenance 3. H/o cardiomyopathy s/p AICD ([employer]). EF recovered 50-55% 01/2021. No arrhythmias 4. Hyperlipidemia; statin 5. S/p AAA, s/p Iliac artery aneurysm repair. stable 6. COPD: controlled 7. H/o seizures: no recent episodes 8. H/o PE on warfarin therapy 9. Hx of CVA and dementia 10. Severe cervical stenosis 11. Chronic pain syndrome/chronic opioid use with hx of back surgery. Discussed transfer to a nursing facility. At this time he still wishes to go home with home health care. We will continue discussion with the patient. Comment Review of Relevant I have reviewed the following items mckayla (where applicable) has been applied. Labs Laboratory Tests Test 02/22/22 04:00 02/23/22 04:00 Prothrombin Time 19.3 SEC (11.7-14.0) 17.2 SEC (11.7-14.0) Prothromb Time International Ratio 1.7 (0.8-1.1) 1.5 (0.8-1.1) Laboratory Tests Test 02/23/22 04:00 Prothrombin Time 17.2 SEC (11.7-14.0) Prothromb Time International Ratio 1.5 (0.8-1.1) Medications Current Medications Midodrine (Proamatine) 2.5 mg [id number] PO Last administered on 02/21/22 13:03; Start 02/20/22 at 18:00; Stop 02/21/22 at 13:00; Status DC Amiodarone HCl (Cordarone) 200 mg DAILY PO Last administered on 02/23/22 07:54; Start 02/20/22 at 16:00 Aspirin (Aspirin Chewable) 81 mg DAILY PO Last administered on 02/23/22 07:54; Start 02/20/22 at 16:00 Albuterol Sulfate (Ventolin Neb Soln) 2.5 mg PRN Q6HRS PRN INH SHORTNESS OF BREATH Last administered on 02/22/22 03:35; Start 02/20/22 at 22:45 Albuterol/ Ipratropium (Duoneb) 3 ml RTQID NEB Last administered on 02/23/22 10:37; Start 02/21/22 at 08:00 Fluticasone Propionate (Flonase) 1 spray DAILY NS Last administered on 02/23/22 07:54; Start 02/21/22 at 09:00 Budesonide (Pulmicort) 0.5 mg RTBID NEB Last administered on 02/23/22 06:16; Start 02/21/22 at 08:00 Heparin Sodium (Porcine) (Heparin Sodium) 5,000 unit Q12HR SQ ; Start 02/21/22 at 13:00; Stop 02/21/22 at 12:10; Status DC Warfarin Sodium (Coumadin Per Pharmacy) 1 each PRN DAILY PRN MC SEE COMMENTS; Start 02/21/22 at 12:15 Warfarin Sodium (Coumadin) 5 mg 1X WARF ONCE PO Last administered on 02/21/22 13:03; Start 02/21/22 at 13:00; Stop 02/21/22 at 13:01; Status DC Midodrine (Proamatine) 2.5 mg BID@0700,1600 PO Last administered on 02/22/22at 16:17; Start 02/21/22 at 16:00 Zolpidem Tartrate (Ambien) 5 mg PRN QHS PRN PO INSOMNIA Last administered on 02/22/22 21:28; Start 02/21/22 at 17:00 Oxycodone/ Acetaminophen (Percocet 5/325) 1 tab PRN Q4HRS PRN PO MILD PAIN 1-3; Start 02/22/22 at 13:00 Oxycodone/ Acetaminophen (Percocet 7.5/ 325) 1 tab PRN Q6HRS PRN PO MODERA TE,SEVERE PAIN Last administered on 02/23/22at 07:54; Start 02/22/22 at 13:00 Warfarin Sodium (Coumadin) 5 mg 1X WARF ONCE PO Last administered on 02/22/22at 16:17; Start 02/22/22 at 16:00; Stop 02/22/22 at 16:01; Status DC Warfarin Sodium (Coumadin) 6 mg 1X WARF ONCE PO ; Start 02/23/22 at 16:00; Stop 02/23/22 at 16:01 Active Scripts Active Tramadol Hcl 50 Mg Tablet 50 Mg PO DAILY PRN 2 Days Gabapentin 300 Mg Capsule 300 Mg PO DAILY 90 Days Keppra (Levetiracetam) 500 Mg Tablet 500 Mg PO BID 30 Days Flomax (Tamsulosin Hcl) 0.4 Mg Cap.er.24h 0.4 Mg PO QHS 30 Days Montelukast Sodium Tablet (Montelukast Sodium) 10 Mg Tablet 10 Mg PO QHS 30 Days Advair 250-50 Diskus (Fluticasone/Salmeterol) 1 Each Disk.w.dev 1 Puff IH BID Amiodarone Hcl 200 Mg Tablet 200 Mg PO DAILY 30 Days Duoneb 0.5-3(2.5) Mg/3 Ml (Albuterol/Ipratropium) 3 Ml Ampul.neb 3 Ml NEB RTQID 30 Days [Pantoprazole] 40 MG Tablet.dr 40 Mg PO DAILYAC 30 Days Proair Hfa Inhaler (Albuterol Sulfate) 8.5 Gm Hfa.aer.ad 1 Puff INH PRN Q6HRS PRN Reported Warfarin Sodium 4 Mg Tablet 4 Mg PO DAILY Warfarin Sodium 3 Mg Tablet 3 Mg PO DAILY Pravastatin Sodium 40 Mg Tablet 1 Tab PO DAILY Sucralfate 1 Gm Tablet 1 Tab PO QID Flonase Allergy Relief (Fluticasone Propionate) 9.9 Ml [place].susp 1 Sprays NS DAILY Lasix (Furosemide) 40 Mg Tablet 40 Mg PO DAILY Potassium Chloride 8 Meq Capsule.er 10 Meq PO DAILY Voltaren Arthritis Pain (Diclofenac Sodium) 20 Gm Gel..gram. 20 Gm TP BID Vitamin B-100 Complex Tablet (Vitamin B Complex/Folic Acid) 0.4 Mg Tablet 1 Tab PO DAILY 30 Days Children's Aspirin (Aspirin) 81 Mg Tab.chew 81 Mg PO DAILY Mag-Oxide (Magnesium Oxide) 400 Mg Tablet 400 Mg PO DAILY Trazodone Hcl 100 Mg Tablet 100 Mg PO QHS Oxycodone Hcl 20 Mg Tablet 20 Mg PO TID PRN PRN Vitals/I & O Vital Sign - Last 24 Hours 02/22/22 02/22/22 02/22/22 02/22/22 14:42 15:02 15:21 15:32 Temp 98.4 98.4 Pulse 78 Resp 18 17 B/P (MAP) 130/73 (92) Pulse Ox 96 96 98 98 O2 Delivery Room Air Room Air Room Air 02/22/22 02/22/22 02/22/22 02/22/22 16:17 18:51 20:00 20:11 Temp 97.6 97.6 Pulse 78 79 Resp 19 B/P (MAP) 130/73 123/64 (83) Pulse Ox 95 99 O2 Delivery Room Air Room Air Room Air 02/22/22 02/22/22 02/22/22 02/23/22 21:29 21:59 22:35 03:05 Temp 97.6 98.6 97.6 98.6 Pulse 79 70 Resp 18 20 18 16 B/P (MAP) 129/71 (90) 144/87 (106) Pulse Ox 99 99 95 99 O2 Delivery Room Air Room Air Room Air Room Air 02/23/22 02/23/22 02/23/22 02/23/22 06:15 06:19 07:00 07:54 Temp 97.9 97.9 Pulse 70 70 69 Resp 17 B/P (MAP) 144/87 127/79 (95) 127/79 Pulse Ox 99 94 O2 Delivery Room Air Room Air 02/23/22 02/23/22 02/23/22 02/23/22 07:54 08:24 10:38 11:00 Temp 97.5 97.5 Pulse 74 Resp 17 18 B/P (MAP) 129/70 (89) Pulse Ox 94 94 98 95 O2 Delivery Room Air Room Air Room Air Room Air Intake and Output 02/22/22 02/22/22 02/23/22 15:00 23:00 07:00 Intake Total 420 ml 390 ml 300 ml Output Total 500 ml Balance 420 ml 390 ml -200 ml Justifications for Admission Other Justification angina, dizziness, orthostasis Nutrition Consultation Dietary Evaluation: Recommendations by RD: Dietary education by RD, Increase Calorie Intake, Protein supplementation Comments: cardiac diet, ground meats ensure tid Expected Outcomes/Goals: to meet >75% est nutr needs Malnutrition Findings: Body Fat Depletion (Non Severe: Mod to Severe Weight Status: Underweight RENATO SEO MD February 23, 2022 14:15
[2022-02-23 14:39] VITALS: BP 148/87
--- NOTE | 2022-02-23 14:52 | PDOC ---
[facility] PROGRESS NOTE Date of Service DOS: DATE: 02/23/22 TIME: 14:46 Chief Complaint Chief Complaint Presyncope A. fib on Coumadin CAD s/p AICD HLD Hx AAA COPD Hx seizures History PEs on warfarin History of CVA and dementia Severe cervical stenosis History of Present Illness History of Present Illness 02/23: Patient says he got up to the bathroom without significant dizziness. Recommended SNU by PT, but he still adamantly refuses. States they do not treat his pain at rehab. I do believe he has orthostatic hypotension is exacerbated by his heavy oxycodone use. Plan to discharge tomorrow with home health, but with further activity with PT I do hope he reconsiders SNU. I resumed as needed Percocet at lower dose. 02/22: Patient notes improvement in his dizziness. Still with complaints of intolerable back pain. Worked with PT and recommended SNU, however patient would prefer to discharge home with home health. He reports prior bad experiences with rehab facilities, saying they do not adequately treat his pain. States he is in pain all the time from previous back injuries and surgeries. We will keep inpatient for continued work with physical therapy and vestibular rehab in hopes that he changes his mind about SNU by Thursday. As needed Percocet. If not he will discharge home with home health. 02/21: Afebrile. Cardiology has resumed his midodrine and amiodarone for rate control. Still complains of dizziness, worse with standing up or looking up. Patient informed not to get up without nursing assistance for PT/OT assistance. We will have him work with PT/OT since he lives at home. We will have pharmacy dose his warfarin, given his history of PEs. Vitals/I&O Vitals/I&O: Vital Signs Date Time Temp Pulse Resp B/P (MAP) Pulse Ox O2 Delivery O2 Flow Rate FiO2 02/23/22 14:39 98.0 75 18 148/87 (107) 97 Room Air 98.0 I & O 02/22/22 02/22/22 02/23/22 15:00 23:00 07:00 Intake Total 420 ml 390 ml 300 ml Output Total 500 ml Balance 420 ml 390 ml -200 ml Physical Exam General: Alert, No acute distress Heart: Regular rate Lungs: Clear, Other Abdomen: Normal bowel sounds Extremities: No cyanosis, No edema Skin: No breakdown Labs Labs: Laboratory Tests Test 02/23/22 04:00 Prothrombin Time 17.2 SEC (11.7-14.0) Prothromb Time International Ratio 1.5 (0.8-1.1) Assessment and Plan Assessmemt and Plan Problems Medical Problems: (1) Autonomic dysfunction Status: Acute Comment Review of Relevant I have reviewed the following items mckayla (where applicable) has been applied. Medications: Current Medications Medications (Trade) Dose Ordered Sig/[place] Route PRN Reason Start Time Stop Time Status Last Admin Dose Admin Warfarin Sodium (Coumadin) 5 mg 1X WARF ONCE PO 02/22/22 16:00 02/22/22 16:01 DC 02/22/22 16:17 Justifications for Admission Other Justification angina, dizziness, orthostasis SOULEYMANE RUSSELL MD February 23, 2022 14:52
[2022-02-23] MEDS ORDERED: WARFARIN 3 MG TABLET. PO ONE (16:00)
[2022-02-23 19:15] VITALS: BP 140/74
[2022-02-23] MEDS ORDERED: POTA10TA12 PO (21:12)
[2022-02-23] MEDS ORDERED: MEMA10TA56 PO (21:12)
[2022-02-23] MEDS ORDERED: GABA300C9 PO (21:12)
[2022-02-23] MEDS ORDERED: DONE5TAB7 PO (21:12)
[2022-02-23] MEDS: TAMSULOSIN 0.4 MG CAP.ER.24H. PO SCH (22:02)
[2022-02-23] MEDS: DONEPEZIL HCL 5 MG TABLET. PO SCH (22:02)
[2022-02-23] MEDS: levETIRAcetam 500 MG TABLET PO SCH (22:03)
[2022-02-23] MEDS: MEMANTINE 10 MG TABLET. PO SCH (22:03)
[2022-02-23] MEDS: MONTELUKAST SODIUM 10 MG TABLET. PO SCH (22:03)
[2022-02-23] MEDS: traZODone 100 MG TABLET. PO SCH (22:03)
[2022-02-23] MEDS: SUCRALFATE 1 GM TABLET. PO SCH (22:03)
[2022-02-23] MEDS: GABAPENTIN 300 MG CAPSULE. PO SCH (22:05)
[2022-02-23 22:15] VITALS: BP 127/93
[2022-02-24 02:31] VITALS: BP 143/85
[2022-02-24 05:38] LABS: PROTHROMBIN TIME PATIENT 15.4 SEC (11.7-14.0)
[2022-02-24] MEDS: PANTOPRAZOLE 40 MG TABLET.DR. PO SCH (06:26)
[2022-02-24] MEDS: MIDODRINE 2.5 MG TABLET PO SCH (06:26)
[2022-02-24 07:00] VITALS: BP 102/67
[2022-02-24] MEDS: IPRATRPIUM/ALBUTEROL 0.5/2.5MG 3 ML NEBU. NEB SCH ×4 (07:17→20:25)
[2022-02-24] MEDS: BUDESONIDE 0.5 MG/2 ML NEBU. NEB SCH ×2 (07:17→20:25)
--- NOTE | 2022-02-24 07:28 | PDOC ---
[facility] [facility] PROGRESS NOTE Date of Service DOS: DATE: 02/24/22 TIME: 07:23 Chief Complaint Chief Complaint Dizziness with presyncope - autonomic dysfunction with orthostasis. Better with midodrine. Paroxysmal atrial fibrillation - has AICD with atrial pacing. On Amiodarone for rhythm maintenance Ischemic cardiomyopathy - s/p AICD. CAD s/p CABG AAA - s/p graft repair COPD - controlled H/o seizures: no recent episodes H/o PE on warfarin therapy Hx of CVA and dementia Severe cervical stenosis Chronic back pain Bilateral knee OA - s/p corticosteroid injections bilaterally on 10/08/2021 FEN - Cardiac diet PPX - lovenox FULL CODE Dispo - inpatient, recommending SNF History of Present Illness History of Present Illness Mr Sterling is an 82-year-old male with PMHx afib, diastolic CHF, GERD, COPD, anemia, CAD s/p CABG, chronic back pain admitted for dizziness, orthostasis, unable to stand unaided. 02/21: Afebrile. Cardiology has resumed his midodrine and amiodarone for rate control. Still complains of dizziness, worse with standing up or looking up. Patient informed not to get up without nursing assistance for PT/OT assistance. We will have him work with PT/OT since he lives at home. We will have pharmacy dose his warfarin, given his history of PEs. 02/22: Patient notes improvement in his dizziness. Still with complaints of intolerable back pain. Worked with PT and recommended SNU, however patient woul d prefer to discharge home with home health. He reports prior bad experiences with rehab facilities, saying they do not adequately treat his pain. States he is in pain all the time from previous back injuries and surgeries. We will keep inpatient for continued work with physical therapy and vestibular rehab in hopes that he changes his mind about SNU by Thursday. As needed Percocet. If not he will discharge home with home health. 02/23: Patient says he got up to the bathroom without significant dizziness. Recommended SNU by PT, but he still adamantly refuses. States they do not treat his pain at rehab. I do believe he has orthostatic hypotension is exacerbated by his heavy oxycodone use. Plan to discharge tomorrow with home health, but with further activity with PT I do hope he reconsiders SNU. I resumed as needed Percocet at lower dose. 02/24: Seen bedside. Feeling weak. Undergoing breathing treatment currently rest as needed arterial pressures 60 currently systolic blood pressures less than 100 mmHg. We will repeat therapy evaluation and orthostatic prior to any discharge planning. Vitals/I&O Vitals/I&O: Vital Signs Date Time Temp Pulse Resp B/P (MAP) Pulse Ox O2 Delivery O2 Flow Rate FiO2 02/24/22 07:15 96 Room Air 02/24/22 06:26 69 98/64 02/24/22 02:31 98.6 18 98.6 I & O 02/23/22 02/23/22 02/24/22 15:00 23:00 07:00 Intake Total 240 ml 120 ml 100 ml Balance 240 ml 120 ml 100 ml Physical Exam General: Alert, No acute distress Heart: Regular rate Lungs: Clear, Other Abdomen: Normal bowel sounds Extremities: No cyanosis, No edema Skin: No breakdown Labs Labs: Laboratory Tests Test 02/24/22 04:50 Prothrombin Time 15.4 SEC (11.7-14.0) Prothromb Time International Ratio 1.3 (0.8-1.1) Assessment and Plan Assessmemt and Plan Problems Medical Problems: (1) Autonomic dysfunction Status: Acute Comment Review of Relevant I have reviewed the following items mckayla (where applicable) has been applied. Medications: Current Medications Medications (Trade) Dose Ordered Sig/[place] Route PRN Reason Start Time Stop Time Status Last Admin Dose Admin Warfarin Sodium (Coumadin) 6 mg 1X WARF ONCE PO 02/23/22 16:00 02/23/22 16:01 DC 02/23/22 15:19 Donepezil HCl (Aricept) 5 mg QHS PO 02/23/22 22:00 02/23/22 22:02 Gabapentin (Neurontin) 300 mg BID PO 02/23/22 22:00 02/23/22 22:05 Levetiracetam (Keppra) 500 mg BID PO 02/23/22 22:00 02/23/22 22:03 Memantine (Namenda) 10 mg BID PO 02/23/22 22:00 02/23/22 22:03 Montelukast Sodium (Singulair) 10 mg QHS PO 02/23/22 22:00 02/23/22 22:03 Sucralfate (Carafate) 1 gm QID PO 02/23/22 22:00 02/23/22 22:03 Tamsulosin HCl (Flomax) 0.4 mg QHS PO 02/23/22 22:00 02/23/22 22:02 Trazodone HCl (Desyrel) 100 mg QHS PO 02/23/22 22:00 02/23/22 22:03 Pantoprazole Sodium (Protonix) 40 mg DAILYAC PO 02/24/22 07:30 02/24/22 06:26 Justifications for Admission Other Justification angina, dizziness, orthostasis GEORGE COOPER MD February 24, 2022 07:28
[2022-02-24] MEDS: GABAPENTIN 300 MG CAPSULE. PO SCH ×2 (08:11→20:17)
[2022-02-24] MEDS: FUROSEMIDE 40 MG TABLET. PO SCH (08:12)
[2022-02-24] MEDS: MAGNESIUM OXIDE 400 MG TABLET PO SCH (08:12)
[2022-02-24] MEDS: MEMANTINE 10 MG TABLET. PO SCH ×2 (08:12→20:17)
[2022-02-24] MEDS: levETIRAcetam 500 MG TABLET PO SCH ×2 (08:12→20:17)
[2022-02-24] MEDS: POTASSIUM CHLORIDE 10 MEQ TABLET.ER. PO SCH (08:12)
[2022-02-24] MEDS: ATORVASTATIN CALCIUM 10 MG TABLET. PO SCH (08:12)
[2022-02-24] MEDS: ASPIRIN CHEWABLE 81 MG TABLET. PO SCH (08:12)
[2022-02-24] MEDS: AMIODARONE HCL 200 MG TABLET. PO SCH (08:12)
[2022-02-24] MEDS: oxyCODONE/APAP 7.5/325 1 TAB TABLET PO PRN ×2 (08:15→18:30)
[2022-02-24] MEDS: FLUTICASONE 50MCG/NASAL SPRAY 16GM BOTTLE. NS SCH (08:18)
--- NOTE | 2022-02-24 08:33 | NUR ---
Pharmacy Warfarin Dosing Note S:Pharmacy consulted to assist with anticoagulation therapy started with target INR: 2 -3 O:MINORGENIA is a 82 year old M with H/O PE LABS: Last INR: 1.3 Last HGB: 14.2 Last HCT: 42.8 Last PLT: 178 Last dose of 6 mg given on 02/23/22 at 1519 Previous Regimen: 7MG DAILY Vitamin K given: Drug Interaction Changes: Ongoing Drug Interactions: A:INR of 1.3 is below desired range. Target range for this patient is: 2 -3 P: Warfarin dose: 7.5 mg Today at 1600 Bridge Therapy: None Next INR due 02/25/22. Pharmacy anticoagulation service will continue to follow. MARCIN ALBARADO RPH, 02/24/22 [id number]
[2022-02-24] MEDS ORDERED: WARFARIN 3 MG TABLET. PO SCH (09:00)
[2022-02-24] MEDS: SUCRALFATE 1 GM TABLET. PO SCH ×4 (10:04→20:17)
--- NOTE | 2022-02-24 10:55 | PDOC ---
CARDIO Progress Notes Date and Time Date of Service 02/24/22 Time of Evaluation 1050 Subjective Subjective: No Chest Pain, No shortness of breath, No Palpitations, No Dizziness Vitals Vitals Vital Signs Date Time Temp Pulse Resp B/P (MAP) Pulse Ox O2 Delivery O2 Flow Rate FiO2 02/24/22 10:12 Room Air 02/24/22 08:12 69 102/67 02/24/22 07:15 96 02/24/22 07:00 96.5 20 96.5 Weight Weight [ ] Input and Output Intake and Output Intake and Output 02/24/22 07:00 Intake Total 460 ml Balance 460 ml Intake Oral 460 ml # Voids 8 Laboratory Labs Laboratory Tests Test 02/24/22 04:50 Prothrombin Time 15.4 SEC (11.7-14.0) Prothromb Time International Ratio 1.3 (0.8-1.1) Physical Exam HEENT: Neck Supple W Full Motion Chest: Symmetric LUNGS: Clear to Auscultation Heart: S1S2, RRR (SR) Abdomen: Soft N/T Extremities: No Edema, No Calf Tenderness Neurology: alert, follow commands Assessment Assessment 1. Presyncope: notable for hx of autonomic dysfunction with orthostasis. + for orthostasis. BP better after midodrine. 2. PAFIB: SR with atrial pacing. On Amiodarone for rhythm maintenance 3. H/o cardiomyopathy s/p AICD ([employer]). EF recovered 50-55% 01/2021. No arrhythmias. Repeat echo with preserved LV systolic function. 4. Hyperlipidemia; statin 5. S/p AAA, s/p Iliac artery aneurysm repair. stable 6. COPD: controlled 7. H/o seizures: no recent episodes 8. H/o PE on warfarin therapy 9. Hx of CVA and dementia 10. Severe cervical stenosis 11. Chronic pain syndrome/chronic opioid use with hx of back surgery. Recommendations Secondary prevention Continue midodrine Amiodarone for rhythm maintenance Compression stockings Supportive care Justicifation of Admission Dx: Justifications for Admission: Justification of Admission Dx: MARCIN Castellanos APRN February 24, 2022 10:55
[2022-02-24 11:00] VITALS: BP 101/57
[2022-02-24 15:00] VITALS: BP 100/58
[2022-02-24] MEDS ORDERED: WARFARIN 7.5 MG TABLET. PO ONE (16:00)
--- NOTE | 2022-02-24 16:07 | NUR ---
SS following up with discharge planning. SS reviewed pt chart and discussed with pt RN. Pt is from home and is currently on room air. PT/OT recommended halfway unit. SS met with pt and discussed discharge planning and halfway unit. Pt declining halfway unit. Pt reported that he is on services with [facility], ; fax [phone], and would like to return to home with home healthcare services. SS will continue to follow for discharge planning.
[2022-02-24] MEDS: MIDODRINE 5 MG TABLET PO SCH (16:31)
[2022-02-24 19:32] VITALS: BP 108/57
[2022-02-24] MEDS: TAMSULOSIN 0.4 MG CAP.ER.24H. PO SCH (20:17)
[2022-02-24] MEDS: DONEPEZIL HCL 5 MG TABLET. PO SCH (20:17)
[2022-02-24] MEDS: traZODone 100 MG TABLET. PO SCH (20:17)
[2022-02-24] MEDS: MONTELUKAST SODIUM 10 MG TABLET. PO SCH (20:17)
[2022-02-24 23:22] VITALS: BP 111/68
[2022-02-25 03:45] VITALS: BP 105/62
[2022-02-25 06:05] LABS: PROTHROMBIN TIME PATIENT 20.9 SEC (11.7-14.0)
[2022-02-25] MEDS: MIDODRINE 5 MG TABLET PO SCH (06:07)
[2022-02-25] MEDS: PANTOPRAZOLE 40 MG TABLET.DR. PO SCH (06:07)
[2022-02-25 07:00] VITALS: BP 98/59
[2022-02-25] MEDS: BUDESONIDE 0.5 MG/2 ML NEBU. NEB SCH (07:31)
[2022-02-25] MEDS: IPRATRPIUM/ALBUTEROL 0.5/2.5MG 3 ML NEBU. NEB SCH ×3 (07:31→15:42)
--- NOTE | 2022-02-25 07:41 | PDOC ---
CARDIO Progress Notes Date and Time Date of Service 02/25/2022 Time of Evaluation 0950 Subjective Subjective: No Chest Pain, No shortness of breath, No Palpitations, No Dizziness Vitals Vitals Vital Signs Date Time Temp Pulse Resp B/P (MAP) Pulse Ox O2 Delivery O2 Flow Rate FiO2 02/25/22 07:34 97 Room Air 02/25/22 06:07 71 106/55 02/25/22 03:45 97.7 18 97.7 Weight Weight [ ] Input and Output Intake and Output Intake and Output 02/25/22 07:00 Intake Total 890 ml Output Total 400 ml Balance 490 ml Intake Oral 890 ml Output Urine Total 400 ml # Voids 1 Laboratory Labs Laboratory Tests Test 02/25/22 05:35 Prothrombin Time 20.9 SEC (11.7-14.0) Prothromb Time International Ratio 1.9 (0.8-1.1) Physical Exam HEENT: Neck Supple W Full Motion Chest: Symmetric LUNGS: Clear to Auscultation Heart: S1S2, RRR (atrial pacing) Abdomen: Soft N/T Extremities: No Edema, No Calf Tenderness Neurology: alert, oriented, follow commands Assessment Assessment 1. Presyncope: notable for hx of autonomic dysfunction with orthostasis. + for orthostasis. BP better after midodrine. No arrhythmias 2. PAFIB: SR with atrial pacing. On Amiodarone for rhythm maintenance 3. H/o cardiomyopathy s/p AICD ([employer]). EF recovered 50-55% 01/2021. No arrhythmias. Repeat echo with preserved LV systolic function. 4. Hyperlipidemia; statin 5. S/p AAA, s/p Iliac artery aneurysm repair. stable 6. COPD: controlled 7. H/o seizures: no recent episodes 8. H/o PE on warfarin therapy 9. Hx of CVA and dementia 10. Severe cervical stenosis 11. Chronic pain syndrome/chronic opioid use with hx of back surgery. Recommendations Secondary prevention Continue midodrine Amiodarone for rhythm maintenance Compression stockings Would benefit from SNU but has refused so far Justicifation of Admission Dx: Justifications for Admission: Justification of Admission Dx: CRYSTAL Fraser APRN February 25, 2022 07:41
[2022-02-25] MEDS: FLUTICASONE 50MCG/NASAL SPRAY 16GM BOTTLE. NS SCH (07:55)
[2022-02-25] MEDS: FUROSEMIDE 40 MG TABLET. PO SCH (07:55)
[2022-02-25] MEDS: SUCRALFATE 1 GM TABLET. PO SCH ×2 (07:56→12:54)
[2022-02-25] MEDS: levETIRAcetam 500 MG TABLET PO SCH (07:56)
[2022-02-25] MEDS: GABAPENTIN 300 MG CAPSULE. PO SCH (07:56)
[2022-02-25] MEDS: ASPIRIN CHEWABLE 81 MG TABLET. PO SCH (07:56)
[2022-02-25] MEDS: MEMANTINE 10 MG TABLET. PO SCH (07:56)
[2022-02-25] MEDS: ATORVASTATIN CALCIUM 10 MG TABLET. PO SCH (07:56)
[2022-02-25] MEDS: POTASSIUM CHLORIDE 10 MEQ TABLET.ER. PO SCH (07:57)
[2022-02-25] MEDS: MAGNESIUM OXIDE 400 MG TABLET PO SCH (07:57)
[2022-02-25] MEDS: AMIODARONE HCL 200 MG TABLET. PO SCH (07:57)
--- NOTE | 2022-02-25 08:58 | PDOC ---
[facility] PROGRESS NOTE Date of Service DOS: DATE: 02/25/22 TIME: 08:56 Chief Complaint Chief Complaint Dizziness with presyncope - autonomic dysfunction with orthostasis. Better with midodrine. Paroxysmal atrial fibrillation - has AICD with atrial pacing. On Amiodarone for rhythm maintenance Ischemic cardiomyopathy - s/p AICD. CAD s/p CABG AAA - s/p graft repair COPD - controlled H/o seizures: no recent episodes H/o PE on warfarin therapy Hx of CVA and dementia Severe cervical stenosis Chronic back pain Bilateral knee OA - s/p corticosteroid injections bilaterally on 10/08/2021 Adrenal insufficiency -we will reinitiate Florinef not clear why this was stopped. FEN - Cardiac diet PPX - lovenox FULL CODE Dispo - inpatient, recommending SNF History of Present Illness History of Present Illness Mr Sterling is an 82-year-old male with PMHx afib, diastolic CHF, GERD, COPD, anemia, CAD s/p CABG, chronic back pain admitted for dizziness, orthostasis, unable to stand unaided. 02/21: Afebrile. Cardiology has resumed his midodrine and amiodarone for rate control. Still complains of dizziness, worse with standing up or looking up. Patient informed not to get up without nursing assistance for PT/OT assistance. We will have him work with PT/OT since he lives at home. We will have pharmacy dose his warfarin, given his history of PEs. 02/22: Patient notes improvement in his dizziness. Still with complaints of intolerable back pain. Worked with PT and recommended SNU, however patient would prefer to discharge home with home health. He reports prior bad experiences with rehab facilities, saying they do not adequately treat his pain. States he is in pain all the time from previous back injuries and surgeries. We will keep inpatient for continued work with physical therapy and vestibular rehab in hopes that he changes his mind about SNU by Thursday. As needed Percocet. If not he will discharge home with home health. 02/23: Patient says he got up to the bathroom without significant dizziness. Recommended SNU by PT, but he still adamantly refuses. States they do not treat his pain at rehab. I do believe he has orthostatic hypotension is exacerbated by his heavy oxycodone use. Plan to discharge tomorrow with home health, but with further activity with PT I do hope he reconsiders SNU. I resumed as needed Percocet at lower dose. 02/24: Seen bedside. Feeling weak. Undergoing breathing treatment currently rest as needed arterial pressures 60 currently systolic blood pressures less than 100 mmHg. We will repeat therapy evaluation and orthostatic prior to any discharge planning. 02/25: Blood pressure 90/59. A.m. cortisol 3.7 consistent with previously diagnosed adrenal insufficiency. Will restart his Florinef and increase midodrine. Vitals/I&O Vitals/I&O: Vital Signs Date Time Temp Pulse Resp B/P (MAP) Pulse Ox O2 Delivery O2 Flow Rate FiO2 02/25/22 07:57 70 98/59 02/25/22 07:34 97 Room Air 02/25/22 03:45 97.7 18 97.7 I & O 02/24/22 02/24/22 02/25/22 15:00 23:00 07:00 Intake Total 370 ml 280 ml 240 ml Output Total 400 ml Balance 370 ml 280 ml -160 ml Physical Exam General: Alert, No acute distress Heart: Regular rate Lungs: Clear, Other Abdomen: Normal bowel sounds Extremities: No cyanosis, No edema Skin: No breakdown Labs Labs: Laboratory Tests Test 02/25/22 05:35 Prothrombin Time 20.9 SEC (11.7-14.0) Prothromb Time International Ratio 1.9 (0.8-1.1) Assessment and Plan Assessmemt and Plan Problems Medical Problems: (1) Autonomic dysfunction Status: Acute Comment Review of Relevant I have reviewed the following items mckayla (where applicable) has been applied. Medications: Current Medications Medications (Trade) Dose Ordered Sig/Alma Rosa Route PRN Reason Start Time Stop Time Status Last Admin Dose Admin Furosemide (Lasix) 40 mg DAILY PO 02/24/22 09:00 02/24/22 08:12 Magnesium Oxide (Magnesium Oxide) 400 mg DAILY PO 02/24/22 09:00 02/25/22 07:57 Potassium Chloride (Klor-Con) 10 meq DAILY PO 02/24/22 09:00 02/25/22 07:57 Atorvastatin Calcium (Lipitor) 10 mg DAILY PO 02/24/22 09:00 02/25/22 07:56 Warfarin Sodium (Coumadin) 7.5 mg 1X WARF ONCE PO 02/24/22 16:00 02/24/22 16:01 DC 02/24/22 16:32 Midodrine (Proamatine) 5 mg BID@0700,1600 PO 02/24/22 16:00 02/25/22 06:07 Justifications for Admission Other Justification angina, dizziness, orthostasis GEORGE COOPER MD February 25, 2022 08:58
[2022-02-25] MEDS ORDERED: MIDO5TAB4 PO (10:22)
[2022-02-25] MEDS ORDERED: OXYC1TAB19 PO (10:22)
[2022-02-25] MEDS ORDERED: FLUD0.1T PO (10:22)
--- NOTE | 2022-02-25 10:24 | SNU/HH DC ---
DISCHARGE WITH HOME HEALTH DISCHARGE INFORMATION: Discharge Date: February 25, 2022 Final Diagnosis: Problems Medical Problems: (1) Autonomic dysfunction Status: Acute Condition on Discharge: Stable CODE STATUS: Code Status: DNR/DNI HOME HEALTH: Face to Face: I certify this patient is under my care and that I, or a nurse practitioner or physician's hygiene assistant working with me, had a face to face encounter that meets t he physician face to face encounter requirements with this patient on 02/25/2022. Medical Complications: DJD, Other (Seizures) Snf For: Assess Cardiopulm Status, Medication Management, Pain Management RN For Eval/Treatment: Yes Physical Therapy For: Evalulation/Treatment Occupational Therapy For: Evaluation/Treatment Pt Meets Homebound Status: Extreme weakness w/ amb., Limited distance walking POST DISCHARGE ORDERS: Activity Instructions for Disc: Activity as tolerated Weight Bearing Status after Di: As tolerated Bathing Instructions: No Tub Bath until see Dr. CAAL AFTER DISCHARGE: Cardiac Wound/Incision Care: No wound care needed CHECKS AFTER DISCHARGE: Checks after discharge: Check blood press - daily, Check your Temp as needed, Weigh Yourself Daily FOLLOW-UP: DC TO SNF LABS: CBC, CMP Additional Instructions: Call to follow up with cardiology [id number] [facility], [address] [place] [address] TREATMENT/EQUIPMENT ORDERS: Adaptive Equipment Issued: None Discharge Respiratory Equipmen: Oxygen CERTIFICATION STATEMENT: Certification Statement: Certification Statement: Based on the above finding, I certify that this patient is confined to the home and needs intermittent half-way care, physical therapy and/or speech therapy, or continues to need occupational therapy.~ This patient is under my care, and I have initiated the establishment of the plan of care.~ This patient will be followed by myself or a community physician who will periodically review the plan of care. Home Meds Active Scripts Midodrine Hcl (MIDODRINE HCL) 5 Mg Tablet, 5 MG PO TIDAC for Orthostatic hypotension for 30 Days, #90 TAB 11 Refills Prov:GEORGE COOPER MD 02/25/22 Fludrocortisone Acetate (FLUDROCORTISONE ACETATE) 0.1 Mg Tablet, 0.1 MG PO DAILY for Adrenal insuffiency for 30 Days, #30 TAB 11 Refills Prov:GEORGE COOPER MD 02/25/22 Oxycodone/Apap 7.5-325 (PERCOCET 7.5-325 MG TABLET ) 1 Each Tablet, 1 TAB PO PRN Q6HRS PRN for MODERATE,SEVERE PAIN for 30 Days, #120 TAB Prov:GEORGE COOPER MD 02/25/22 Levetiracetam (KEPPRA) 500 Mg Tablet, 500 MG PO BID for seizure for 30 Days, #60 TAB Prov:Hazel MEADOWS MD 07/08/19 Tamsulosin Hcl (FLOMAX) 0.4 Mg Cap.er.24h, 0.4 MG PO QHS for prostate for 30 Days, #30 CAP.SR Prov:Hazel MEADOWS MD 07/08/19 Montelukast Sodium (MONTELUKAST SODIUM TABLET ) 10 Mg Tablet, 10 MG PO QHS for lungs for 30 Days, #30 TAB 11 Refills Prov:Hazel MEADOWS MD 01/30/19 Fluticasone/Salmeterol (ADVAIR 250-50 DISKUS) 1 Each Disk.w.dev, 1 PUFF IH BID for lungs, #1 INHALER 5 Refills Prov:Hazel MEADOWS MD 01/30/19 Amiodarone Hcl (AMIODARONE HCL) 200 Mg Tablet, 200 MG PO DAILY for afib for 30 Days, #30 TAB 11 Refills Prov:Hazel MEADOWS MD 01/30/19 Ipratropium/Albuterol Sulfate (DUONEB 0.5-3(2.5) MG/3 ML) 3 Ml Ampul.neb, 3 ML NEB RTQID for copd for 30 Days, #120 EACH Prov:YUMIKO WILKINSON MD 11/05/18 [Pantoprazole] 40 MG TABLET.DR [place] Conflict Check, 40 MG PO DAILYAC for 30 Days, #30 1 Refill Prov:RENE MOON MD 08/23/18 Albuterol Sulfate (PROAIR HFA INHALER) 8.5 Gm Hfa.aer.ad, 1 PUFF INH PRN Q6HRS PRN for SHORTNESS OF BREATH, #1 INHALER 0 Refills Prov:JULISSA BARRAZA MD 07/01/18 Reported Medications Memantine HCl (Memantine HCl) 10 Mg Tablet, 1 TAB PO BID for 02/23/22 Donepezil Hcl (DONEPEZIL HCL) 5 Mg Tablet, 1 TAB PO QHS for 02/23/22 Gabapentin (Gabapentin) 300 Mg Capsule, 1 CAP PO TID for 02/23/22 Potassium Chloride (POTASSIUM CHLORIDE ) 10 Meq Tab.sr.24h, 10 MEQ PO DAILY for SUPPLEMENT, TAB.SR 02/23/22 Warfarin Sodium (WARFARIN SODIUM) 4 Mg Tablet, 4 MG PO DAILY for blood clot, #30 TAB 02/20/22 Warfarin Sodium (WARFARIN SODIUM) 3 Mg Tablet, 3 MG PO DAILY for blood clot, #30 TAB 02/20/22 Pravastatin Sodium (PRAVASTATIN SODIUM) 40 Mg Tablet, 1 TAB PO DAILY for High Cholesterol, #90 TAB 1 Refill 02/20/22 Sucralfate (SUCRALFATE) 1 Gm Tablet, 1 TAB PO QID for supplement, #120 TAB 3 Refills 10/07/21 Fluticasone Propionate (Flonase Allergy Relief) 9.9 Ml [place].susp, 1 SPRAYS NS DAILY for supplement, ML 10/07/21 Furosemide (LASIX) 40 Mg Tablet, 40 MG PO DAILY for diuretic, TAB 10/07/21 Diclofenac Sodium (Voltaren Arthritis Pain) 20 Gm Gel..gram., 20 GM TP BID for pain relief, EACH 10/07/21 Aspirin (Children's Aspirin) 81 Mg Tab.chew, 81 MG PO DAILY for unknown, TAB.CHEW 09/20/19 Magnesium Oxide (MAG-OXIDE) 400 Mg Tablet, 400 MG PO DAILY for supplement 04/05/19 Trazodone Hcl (TRAZODONE HCL) 100 Mg Tablet, 100 MG PO QHS for sleep 12/10/18 Discontinued Reported Medications Oxycodone Hcl (OXYCODONE HCL) 20 Mg Tablet, 20 MG PO PRN QID PRN for PAIN 12/10/18 Potassium Chloride (POTASSIUM CHLORIDE) 8 Meq Capsule.er, 10 MEQ PO DAILY for supplement, CAP 10/07/21 Warfarin Sodium (WARFARIN SODIUM) 6 Mg Tablet, 6 MG PO DAILY for blood thinner, #30 TAB 10/07/21 GEORGE COOPER MD February 25, 2022 10:24
[2022-02-25] MEDS ORDERED: FLUDROCORTISONE 0.1 MG TABLET PO SCH (10:30)
[2022-02-25 11:00] VITALS: BP 94/60
[2022-02-25] MEDS ORDERED: MAGNESIUM HYDROXIDE 2,400 MG/30 ML ORAL.SUSP. PO ONE (12:45)
[2022-02-25] MEDS ORDERED: DOCUSATE SODIUM 100 MG CAPSULE. PO SCH (12:45)
--- NOTE | 2022-02-25 14:47 | PDOC3 ---
Discharge Summary Visit Information Date of Admission: February 20, 2022 Date of Discharge: February 25, 2022 Admitting Diagnosis: Orthostatic hypotension Final Diagnosis Problems Medical Problems: (1) Autonomic dysfunction Status: Acute Brief Hospital Course Allergies Allergies Coded Allergies Type Severity Reaction Last Updated Verified Iodinated Contrast Media Allergy Severe anaphalaxis, short of air 02/20/22 Yes adhesive Allergy Severe PAINFUL SKIN IRRITATION 02/20/22 Yes latex Allergy Intermediate Hives 02/20/22 Yes morphine Allergy Intermediate 02/20/22 Yes Pork/Porcine Containing Products Adverse Reaction Mild pt does not eat r/t religous reasons 02/20/22 Yes Vital Signs Vital Signs Date Time Temp Pulse Resp B/P (MAP) Pulse Ox O2 Delivery O2 Flow Rate FiO2 02/25/22 11:35 Room Air 02/25/22 11:00 98.7 71 18 94/60 (71) 93 98.7 Lab Results Laboratory Tests Test 02/24/22 04:50 02/25/22 05:35 Prothrombin Time 15.4 SEC (11.7-14.0) 20.9 SEC (11.7-14.0) Prothromb Time International Ratio 1.3 (0.8-1.1) 1.9 (0.8-1.1) Cortisol AM Sample 3.7 ug/dL (4.3-22.4) Laboratory Tests Test 02/25/22 05:35 Prothrombin Time 20.9 SEC (11.7-14.0) Prothromb Time International Ratio 1.9 (0.8-1.1) Cortisol AM Sample 3.7 ug/dL (4.3-22.4) Brief Hospital Course Mr Sterling is an 82-year-old male with PMHx afib, diastolic CHF, GERD, COPD, anemia, CAD s/p CABG, chronic back pain admitted for dizziness, orthos tasis, unable to stand unaided. 02/21: Afebrile. Cardiology has resumed his midodrine and amiodarone for rate control. Still complains of dizziness, worse with standing up or looking up. Patient informed not to get up without nursing assistance for PT/OT assistance. We will have him work with PT/OT since he lives at home. We will have pharmacy dose his warfarin, given his history of PEs. 02/22: Patient notes improvement in his dizziness. Still with complaints of intolerable back pain. Worked with PT and recommended SNU, however patient would prefer to discharge home with home health. He reports prior bad experiences with rehab facilities, saying they do not adequately treat his pain. States he is in pain all the time from previous back injuries and surgeries. We will keep inpatient for continued work with physical therapy and vestibular rehab in hopes that he changes his mind about SNU by Thursday. As needed Percocet. If not he will discharge home with home health. 02/23: Patient says he got up to the bathroom without significant dizziness. Recommended SNU by PT, but he still adamantly refuses. States they do not treat his pain at rehab. I do believe he has orthostatic hypotension is exacerbated by his heavy oxycodone use. Plan to discharge tomorrow with home health, but with further activity with PT I do hope he reconsiders SNU. I resumed as needed Percocet at lower dose. 02/24: Seen bedside. Feeling weak. Undergoing breathing treatment currently rest as needed arterial pressures 60 currently systolic blood pressures less than 100 mmHg. We will repeat therapy evaluation and orthostatic prior to any discharge planning. 02/25: Blood pressure 90/59. A.m. cortisol 3.7 consistent with previously diagnosed adrenal insufficiency. Will restart his Florinef and increase midodrine. BP improved to systolic in the low 100s able to transition to the restroom and we did need to lay back down. He notes he is walking further to the restroom here that he wanted home home health and set up counseled extensively on co ntinuing his home midodrine and Florinef I have sent in a year prescription for this. Consults: Cardiology Problem list: Dizziness with presyncope - autonomic dysfunction with orthostasis. Better with midodrine. Paroxysmal atrial fibrillation - has AICD with atrial pacing. On Amiodarone for rhythm maintenance Ischemic cardiomyopathy - s/p AICD. CAD s/p CABG AAA - s/p graft repair COPD - controlled H/o seizures: no recent episodes H/o PE on warfarin therapy Hx of CVA and dementia Severe cervical stenosis Chronic back pain Bilateral knee OA - s/p corticosteroid injections bilaterally on 10/08/2021 Adrenal insufficiency -we will reinitiate Florinef not clear why this was stopped. Greater than 30 minutes spent on d/c home with home health Discharge Information Condition at Discharge: Improved Follow Up: Weeks (1) Disposition/Orders: D/C to Home w/ HH Scheduled Amiodarone Hcl (Amiodarone Hcl) 200 Mg Tablet, 200 MG PO DAILY for afib for 30 Days, #30 Ref 11 Prescribed by: PAUL MEADOWS MD on 01/30/19 1342 Last Action: Reviewed on 02/23/222111 by MICHAEL KIM RN Aspirin (Children's Aspirin) 81 Mg Tab.chew, 81 MG PO DAILY for unknown, (Reported) Entered as Reported by: MATEUSZ ANDREW on 09/20/19 1318 Last Action: Reviewed on 02/23/222111 by MICHAEL KIM RN Diclofenac Sodium (Voltaren Arthritis Pain) 20 Gm Gel..gram., 20 GM TP BID for pain relief, (Reported) Entered as Reported by: AYSHA COHEN on 10/07/21 1350 Last Action: Reviewed on 02/23/222111 by MICHAEL KIM RN Donepezil Hcl (Donepezil Hcl) 5 Mg Tablet, 1 TAB PO QHS for , (Reported) Entered as Reported by: MICHAEL KIM RN on 02/23/222111 Last Action: Continued on 02/23/222148 by MICHAEL KIM RN Fludrocortisone Acetate (Fludrocortisone Acetate) 0.1 Mg Tablet, 0.1 MG PO DAILY for Adrenal insuffiency for 30 Days, #30 Ref 11 Prescribed by: GEORGE COOPER MD on 02/25/22 1022 Fluticasone Propionate (Flonase Allergy Relief) 9.9 Ml [place].susp, 1 SPRAYS NS DAILY for supplement, (Reported) Entered as Reported by: AYSHA COHEN on 10/07/21 1350 Last Action: Reviewed on 02/23/222111 by MICHAEL KIM RN Fluticasone/Salmeterol (Advair 250-50 Diskus) 1 Each Disk.w.dev, 1 PUFF IH BID for lungs, #1 Ref 5 Prescribed by: PAUL MEADOWS MD on 01/30/19 1342 Last Action: Reviewed on 02/23/222111 by MICHAEL KIM RN Furosemide (Lasix) 40 Mg Tablet, 40 MG PO DAILY for diuretic, (Reported) Entered as Reported by: AYSHA COHEN on 10/07/21 1350 Last Action: Continued on 02/23/222148 by MICHAEL KIM RN Gabapentin (Gabapentin) 300 Mg Capsule, 1 CAP PO TID for , (Reported) Entered as Reported by: MICHAEL KIM RN on 02/23/222111 Last Action: Continued on 02/23/222148 by MICHAEL KIM RN Ipratropium/Albuterol Sulfate (Duoneb 0.5-3(2.5) Mg/3 Ml) 3 Ml Ampul.neb, 3 ML NEB RTQID for copd for 30 Days, #120 Prescribed by: YUMIKO WILKINSON MD on 11/05/18 1359 Last Action: Continued on 02/20/222251 by ZULMA ARROYO RN Levetiracetam (Keppra) 500 Mg Tablet, 500 MG PO BID for seizure for 30 Days, #60 Prescribed by: PAUL MEADOWS MD on 07/08/19 1319 Last Action: Continued on 02/23/222148 by MICHAEL KIM RN Magnesium Oxide (Mag-Oxide) 400 Mg Tablet, 400 MG PO DAILY for supplement, (Reported) Entered as Reported by: Deon Garcia on 04/05/19 0243 Last Action: Continued on 02/23/222148 by MICHAEL KIM RN Memantine HCl (Memantine HCl) 10 Mg Tablet, 1 TAB PO BID for , (Reported) Entered as Reported by: MICHAEL KIM RN on 02/23/222111 Last Action: Continued on 02/23/222148 by MICHAEL KIM RN Midodrine Hcl (Midodrine Hcl) 5 Mg Tablet, 5 MG PO TIDAC for Orthostatic hypotension for 30 Days, #90 Ref 11 Prescribed by: GEORGE COOPER MD on 02/25/22 1022 Montelukast Sodium (Montelukast Sodium Tablet ) 10 Mg Tablet, 10 MG PO QHS for lungs for 30 Days, #30 Ref 11 Prescribed by: PAUL MEADOWS MD on 01/30/19 1342 Last Action: Continued on 02/23/222148 by MICHAEL KIM RN Potassium Chloride (Potassium Chloride ) 10 Meq Tab.sr.24h, 10 MEQ PO DAILY for SUPPLEMENT, (Reported) Entered as Reported by: MICHAEL KIM RN on 02/23/222111 Last Action: Continued on 02/23/222148 by MICHAEL KIM RN Pravastatin Sodium (Pravastatin Sodium) 40 Mg Tablet, 1 TAB PO DAILY for High Cholesterol, #90 Ref 1 (Reported) Entered as Reported by: ZULMA ARROYO RN on 02/20/222222 Last Action: Converted on 02/23/222148 by MICHAEL KIM RN Sucralfate (Sucralfate) 1 Gm Tablet, 1 TAB PO QID for supplement, #120 Ref 3 (Reported) Entered as Reported by: AYSHA COHEN on 10/07/21 1350 Last Action: Continued on 02/23/222148 by MICHAEL KIM RN Tamsulosin Hcl (Flomax) 0.4 Mg Cap.er.24h, 0.4 MG PO QHS for prostate for 30 Days, #30 Prescribed by: PAUL MEADOWS MD on 07/08/19 1319 Last Action: Continued on 02/23/222148 by MICHAEL KIM RN Trazodone Hcl (Trazodone Hcl) 100 Mg Tablet, 100 MG PO QHS for sleep, (Reported) Entered as Reported by: SYLVIE COOPER RN on 12/10/182038 Last Action: Continued on 02/23/222148 by MICHAEL KIM RN Warfarin Sodium (Warfarin Sodium) 3 Mg Tablet, 3 MG PO DAILY for blood clot, #30 (Reported) Entered as Reported by: ZULMA ARROYO RN on 02/20/222227 Last Action: Continued on 02/23/222148 by MICHAEL KIM RN Warfarin Sodium (Warfarin Sodium) 4 Mg Tablet, 4 MG PO DAILY for blood clot, #30 (Reported) Entered as Reported by: ZULMA ARROYO RN on 02/20/222228 Last Action: New Order on 02/20/222228 by ZULMA ARROYO RN [Pantoprazole] 40 MG TABLET.DR, 40 MG PO DAILYAC for 30 Days, #30 Ref 1 Prescribed by: RENE MOON on 08/23/18 0858 Last Action: Converted on 02/23/222148 by MICHAEL KIM RN Scheduled PRN Albuterol Sulfate (Proair Hfa Inhaler) 8.5 Gm Hfa.aer.ad, 1 PUFF INH PRN Q6HRS PRN for SHORTNESS OF BREATH, #1 Ref 0 Prescribed by: JULISSA BARRAZA MD on 07/01/18 0250 Last Action: Continued on 02/20/222251 by ZULMA ARROYO RN Oxycodone/Apap 7.5-325 (Percocet 7.5-325 Mg Tablet ) 1 Each Tablet, 1 TAB PO PRN Q6HRS PRN for MODERATE,SEVERE PAIN for 30 Days, #120 Prescribed by: GEORGE COOPER MD on 02/25/22 1022 Discontinued Medications Oxycodone Hcl (Oxycodone Hcl) 20 Mg Tablet, 20 MG PO PRN QID PRN for PAIN, (Reported) Entered as Reported by: SYLVIE COOPER RN on 12/10/182038 Last Action: Edited on 02/23/222111 by MICHAEL KIM RN Potassium Chloride (Potassium Chloride) 8 Meq Capsule.er, 10 MEQ PO DAILY for supplement, (Reported) Discontinued Reason: Prescription changed Entered as Reported by: AYSHA COHEN on 10/07/21 135 Warfarin Sodium (Warfarin Sodium) 6 Mg Tablet, 6 MG PO DAILY for blood thinner, #30 (Reported) Entered as Reported by: AYSHA COHEN on 10/07/21 1350 Last Action: Discontinued on 02/20/222227 by ZULMA ARROYO RN Justicifation of Admission Dx: Justifications for Admission: Justification of Admission Dx: GEORGE Rm MD February 25, 2022 14:47
--- NOTE | 2022-02-25 14:54 | NUR ---
SS following up with discharge planning. SS reviewed pt chart and discussed with pt RN. Pt is from home and is currently on room air. PT/OT recommended nursing home unit. Pt declining nursing home unit. Pt current on services with [facility], ; fax [phone]. Discharge orders received and sent to [facility]. SS will continue to follow for discharge planning.
[2022-02-25 15:00] VITALS: BP 104/62
[2022-02-25] MEDS ORDERED: WARFARIN 3 MG TABLET. PO ONE (16:00)
[2022-02-25] MEDS ORDERED: WARFARIN 4 MG TABLET. PO ONE (16:00)
--- NOTE | 2022-02-25 16:11 | NUR ---
Discharge Note: GENIA MCKENZIE [address] Discharge instructions and discharge home medications reviewed with Patient and a copy given. All questions have been answered and understanding verbalized. The following instructions and handouts were given: HH and discharge medications Discontinued lines and drains: Removed IV and secured entrance monitor Patient discharged to home with home health
== END 2022-02-25 16:04 | disposition home health service (06) | DRG 74 ==
LOC: ER 09:40 → 6 SOUTH 16:35 → OBSVTOIN 16:35
PROVIDERS: ADMIT Internal Medicine; ATTEND Internal Medicine
DX: G90.9 Disorder of the autonomic nervous system, unspecified (principal); E27.40 Unspecified adrenocortical insufficiency; I50.32 Chronic diastolic (congestive) heart failure; I42.9 Cardiomyopathy, unspecified; I48.0 Paroxysmal atrial fibrillation; E78.00 Pure hypercholesterolemia, unspecified; E78.5 Hyperlipidemia, unspecified; F03.90 Unspecified dementia, unspecified severity, without behavioral disturbance, psychotic disturbance, mood disturbance, and anxiety; G89.4 Chronic pain syndrome; I11.0 Hypertensive heart disease with heart failure; I25.10 Atherosclerotic heart disease of native coronary artery without angina pectoris; I25.5 Ischemic cardiomyopathy; I95.1 Orthostatic hypotension; J44.9 Chronic obstructive pulmonary disease, unspecified; M17.0 Bilateral primary osteoarthritis of knee; M48.02 Spinal stenosis, cervical region; N40.0 Benign prostatic hyperplasia without lower urinary tract symptoms; Z79.891 Long term (current) use of opiate analgesic; Z83.3 Family history of diabetes mellitus; Z86.711 Personal history of pulmonary embolism; Z86.73 Personal history of transient ischemic attack (TIA), and cerebral infarction without residual deficits; Z87.442 Personal history of urinary calculi; Z91.14 Patient's other noncompliance with medication regimen; Z95.1 Presence of aortocoronary bypass graft; Z95.810 Presence of automatic (implantable) cardiac defibrillator; D64.9 Anemia, unspecified; M19.90 Unspecified osteoarthritis, unspecified site; I25.2 Old myocardial infarction; Z91.040 Latex allergy status; Z91.014 Allergy to mammalian meats; Z88.8 Allergy status to other drugs, medicaments and biological substances; Z91.048 Other nonmedicinal substance allergy status
CPT/HCPCS: 36415; 80053; 82533; 83690; 84443; 84484; 85025; 85610; 93005; 93306; 94640; 94760; 97116-GP; 97530-GO; 97530-GP; 97535-GO; 99285-25; C8929; G0378; J7613; J7626